=== PATIENT | female | born 1945 | race Asian ===

== ENCOUNTER 2018-02-26 13:08 | Inpatient (IN) | payer MEDICARE ==
[2018-02-26 14:23] LABS: Absolute Lymphocytes (CBC) 1.9 K/uL (0.7-4.9); Absolute Monocytes 0.6 K/uL (0.1-1.3); Absolute Neutrophil 7.7 K/uL (1.8-8.0); Basophils % 0.7 % (0-1.3); Eosinophils % 0.9 % (0-4.4); Hematocrit 37.3 % (36.0-45.0); Lymphocytes % 18.2 % (15.3-44.8); MCH 28.5 pg (27.0-35.0); MCV 84.4 fL (80-100); MPV 8.1 fL (7.6-11.3); Monocytes % 5.4 % (3.3-12.3); RBC Red Blood Cell Count 4.42 M/uL (3.86-4.86)
[2018-02-26 14:26] LABS: Protime INR 0.91
[2018-02-26 14:26] LABS: Urine Blood NEGATIVE (NEG); Urine Glucose NEGATIVE (NEG); Urine Protein NEGATIVE (NEG)
[2018-02-26 14:34] LABS: Potassium 3.7 mEq/L (3.6-5.0)
--- NOTE | 2018-02-26 14:40 | RAD REPORT ---
EXAM DESCRIPTION: RAD - Chest Single View - 02/26/2018 2:27 pm CLINICAL HISTORY: Diabetes, hypertension. COMPARISON: 09/23/2016 FINDINGS: Portable technique limits examination quality. The lungs are grossly clear. The heart is mildly enlarged in size. No displaced fractures. IMPRESSION: No acute intrathoracic process suspected.
[2018-02-26 14:41] LABS: Albumin 4.4 g/dL (3.2-5.5); Bilirubin Direct 0.1 mg/dL (0-0.2); Bilirubin Total 0.7 mg/dL (0.3-1.2); Magnesium 1.8 mg/dL (1.8-2.5); Protein, Total 7.7 g/dL (6.0-8.3)
[2018-02-26] MEDS ORDERED: NA CHLORIDE 0.9% 1,000 ML ONE (15:00)
--- NOTE | 2018-02-26 15:31 | ER ---
Nurse's Notes [facility] Name: Jesi Lee Age: 72 yrs Sex: Female : 1945 Arrival Date: 02/26/2018 Time: 13:10 Bed 23 Private MD: Fatou Adan Diagnosis: Hyponatremia;Dehydration Presentation: 02/26 13:27 Presenting complaint: Patient states: Vomiting x 2 episodes within the last week. aj Reports feeling lightheaded. Transition of care: patient was not received from another setting of care. Onset of symptoms was February 19, 2018. Initial Sepsis Screen: Does the patient meet any 2 criteria? No. Patient's initial sepsis screen is negative. Does the patient have a suspected source of infection? No. Patient's initial sepsis screen is negative. Care prior to arrival: None. 13:27 Method Of Arrival: Ambulatory 13:27 Acuity: RENETTA 3 aj Triage Assessment: 13:32 General: Appears in no apparent distress. comfortable, Behavior is calm, cooperative, aj appropriate for age. Pain: Denies pain. Neuro: Level of Consciousness is awake, alert, obeys commands, Oriented to person, place, time, situation, Appropriate for age. Respiratory: Reports shortness of breath Airway is patent Trachea midline Respiratory effort is even, unlabored, Respiratory pattern is regular, symmetrical. GI: Abdomen is flat, Reports vomiting. Derm: Skin is intact, is healthy with good turgor, Skin is pink, warm \T\ dry. normal. Historical: - Allergies: 13:32 NKA; aj - Home Meds: 13:32 amlodipine 10 mg tab [Active]; carvedilol 25 mg Oral tab 2 times per day [Active]; aj glipizide 5 mg Oral tr24 [Active]; hydrochlorothiazide 25 mg Oral tab 1 tab once daily [Active]; Iron CR Oral daily [Active]; losartan-hydrochlorothiazide 100-25 mg Oral tab [Active]; metformin 1,000 mg Oral tab 1 tab 2 times per day [Active]; METFORMIN HCL 1000mg [Active]; potassium chloride 10 mEq Oral cpER [Active]; telmisartan 80 mg Oral tab 1 tab once daily [Active]; - PMHx: 13:32 Diabetes; Hypertension; aj - PSHx: 13:32 Hysterectomy; Cholecystectomy; cataracts; aj - Immunization history:: Adult Immunizations up to date. - Social history:: Smoking status: Patient/guardian denies using tobacco. Screenin:43 Abuse screen: Denies threats or abuse. Nutritional screening: No deficits noted. tl3 Tuberculosis screening: No symptoms or risk factors identified. Fall Risk None identified. Assessment: 13:43 General: Appears in no apparent distress. comfortable, slender, well groomed, well tl3 developed, well nourished, Behavior is calm, cooperative, appropriate for age. Pain: Complains of pain in chest, feels short of breath sometimes. Neuro: Level of Consciousness is awake, alert, obeys commands, Oriented to person, place, time, situation, Appropriate for age. Cardiovascular: Reports chest pain, shortness of breath, Heart tones S1 S2 present Capillary refill < 3 seconds in bilateral fingers. Respiratory: Airway is patent Trachea midline Respiratory effort is even, unlabored, Respiratory pattern is regular, symmetrical, Breath sounds are clear bilaterally. GI: Abdomen is flat, Reports diarrhea, vomiting. : No signs and/or symptoms were reported regarding the genitourinary system. EENT: No signs and/or symptoms were reported regarding the EENT system. Derm: No signs and/or symptoms reported regarding the dermatologic system. Musculoskeletal: No signs and/or symptoms reported regarding the musculoskeletal system. 13:43 Reassessment: pt reports that her blood sugar has been as high as 140 and that her tl3 blood pressure has gotten as high asin the 170's. 14:57 Reassessment: Patient appears in no apparent distress at this time. No changes from tl3 previously documented assessment. Patient and/or family updated on plan of care and expected duration. Pain level reassessed. Patient is alert, oriented x 3, equal unlabored respirations, skin warm/dry/pink. pt resting in bed, at bedside. Vital Signs: 13:32 BP 159 / 75; Pulse 60; Resp 20; Temp 97.9; Pulse Ox 99% on R/A; Weight 62.6 kg; Height aj 5 ft. 1 in. (154.94 cm); Pain 0/10; 14:57 Pulse 66; Resp 16; Pulse Ox 99% ; tl3 15:57 BP 153 / 61; Pulse 66; Resp 16; Pulse Ox 100% on R/A; tl3 13:32 Body Mass Index 26.07 (62.60 kg, 154.94 cm) ED Course: 13:10 Patient arrived in ED. rg4 13:11 Fatou Adan MD is Private Physician. rg4 13:14 Adriana Bergman, RN is Primary Nurse. tl3 13:30 Triage completed. aj 13:33 Arm band placed on left wrist. Patient placed in an exam room. aj 13:37 Clark Villalobos PA is PHCP. jr8 13:37 Simeon Gavin MD is Attending Physician. jr8 13:43 No apparent distress. tl3 13:43 Patient has correct armband on for positive identification. Placed in gown. Bed in low tl3 position. Call light in reach. Side rails up X 1. Adult w/ patient. process environmental technician on. Pulse ox on. NIBP on. 13:43 No provider procedures requiring assistance completed. tl3 14:15 Initial lab(s) drawn, by me, sent to lab. tl3 14:22 Inserted saline lock: 20 gauge in left wrist, using aseptic technique. Blood collected. tl3 14:26 X-ray completed. Portable x-ray completed in exam room. Patient tolerated procedure mh1 well. 14:27 XRAY Chest (1 view) In Process Unspecified. EDMS 14:45 Warm blanket given. Pillow given. Head of bed lowered. tl3 14:59 EKG done, by polysomnography technologist. reviewed by Clark DARLING. at1 15:24 ED physician to see patient. Clark discussing POC and need to admit pt. tl3 15:30 Geno Krause MD is Hospitalizing Provider. jr8 16:34 Patient admitted, IV remains in place. tl3 Administered Medications: 15:03 Drug: NS 0.9% 1000 ml Route: IV; Rate: 1000 ml; Site: left wrist; Delivery: Primary tl3 tubing; 16:29 Follow up: IV Status: Completed infusion; IV Intake: 1000ml tl3 Intake: 16:29 IV: 1000ml; Total: 1000ml. tl3 Outcome: 15:30 Decision to Hospitalize by Provider. jr8 16:30 Admitted to Med/surg accompanied by tech, via wheelchair, with chart, Report called to tl3 Colton Sesay RN 16:34 Condition: good tl3 16:34 Instructed on the need for admit. 16:58 Patient left the ED. tl3 Signatures: Dispatcher [employer] EDAyla Rm, RAUL RN Tyesha Dumont 1 Clark Villalobos PA PA 8 Ayla chauhan, photonics engineering technologist EKG Tat1 Laly Singh rg4 Adriana Bergman RN RN tl3 Corrections: (The following items were deleted from the chart) 13:33 13:27 Acuity: RENETTA 4 zaynab worthy
--- NOTE | 2018-02-26 15:31 | EDPHYS ---
Physician Documentation [facility] Name: Jesi Lee Age: 72 yrs Sex: Female : 1945 Arrival Date: 02/26/2018 Time: 13:10 Bed 23 Private MD: Fatou Adan ED Physician Simeon Gavin HPI: 02/26 14:14 This 72 yrs old Female presents to ER via Ambulatory with complaints of High jr8 Blood Pressure, High Blood Sugar, Vomiting. 14:14 Modifying factors: The symptoms are aggravated by activity. Associated signs and jr8 symptoms: Pertinent positives: dyspnea. The patient has not experienced similar symptoms in the past. The patient has not recently seen a physician. Patient stated that for the past few days has had elevated blood sugar, blood pressure, along with n/v/d. Feels weak and fatigued now. Also having MRAK and chest tightness . Historical: - Allergies: 13:32 NKA; aj - Home Meds: 13:32 amlodipine 10 mg tab [Active]; carvedilol 25 mg Oral tab 2 times per day [Active]; aj glipizide 5 mg Oral tr24 [Active]; hydrochlorothiazide 25 mg Oral tab 1 tab once daily [Active]; Iron CR Oral daily [Active]; losartan-hydrochlorothiazide 100-25 mg Oral tab [Active]; metformin 1,000 mg Oral tab 1 tab 2 times per day [Active]; METFORMIN HCL 1000mg [Active]; potassium chloride 10 mEq Oral cpER [Active]; telmisartan 80 mg Oral tab 1 tab once daily [Active]; - PMHx: 13:32 Diabetes; Hypertension; aj - PSHx: 13:32 Hysterectomy; Cholecystectomy; cataracts; aj - Immunization history:: Adult Immunizations up to date. - Social history:: Smoking status: Patient/guardian denies using tobacco. ROS: 14:14 Eyes: Negative for injury, pain, redness, and discharge, ENT: Negative for injury, jr8 pain, and discharge, Neck: Negative for injury, pain, and swelling, Back: Negative for injury and pain, MS/Extremity: Negative for injury and deformity, Skin: Negative for injury, rash, and discoloration, Neuro: Negative for headache, weakness, numbness, tingling, and seizure. 14:14 Cardiovascular: Positive for chest pain, Negative for edema, orthopnea, palpitations, paroxysmal nocturnal dyspnea. 14:14 Respiratory: Positive for dyspnea on exertion, shortness of breath, Negative for sputum production, wheezing. 14:14 Abdomen/GI: Positive for nausea, vomiting, and diarrhea, Negative for abdominal pain, abdominal cramps, abdominal distension, anorexia, dysphagia, hematemesis, black/tarry stool, rectal pain, rectal bleeding, bowel incontinence, flatulence. Exam: 14:14 Eyes: Pupils equal round and reactive to light, extra-ocular motions intact. Lids and jr8 lashes normal. Conjunctiva and sclera are non-icteric and not injected. Cornea within normal limits. Periorbital areas with no swelling, redness, or edema. ENT: Nares patent. No nasal discharge, no septal abnormalities noted. Tympanic membranes are normal and external auditory canals are clear. Oropharynx with no redness, swelling, or masses, exudates, or evidence of obstruction, uvula midline. Mucous membranes moist. Neck: Trachea midline, no thyromegaly or masses palpated, and no cervical lymphadenopathy. Supple, full range of motion without nuchal rigidity, or vertebral point tenderness. No Meningismus. Cardiovascular: Regular rate and rhythm with a normal S1 and S2. No gallops, murmurs, or rubs. Normal PMI, no JVD. No pulse deficits. Respiratory: Lungs have equal breath sounds bilaterally, clear to auscultation and percussion. No rales, rhonchi or wheezes noted. No increased work of breathing, no retractions or nasal flaring. Abdomen/GI: Soft, non-tender, with normal bowel sounds. No distension or tympany. No guarding or rebound. No evidence of tenderness throughout. Back: No spinal tenderness. No costovertebral tenderness. Full range of motion. Skin: Warm, dry with normal turgor. Normal color with no rashes, no lesions, and no evidence of cellulitis. MS/ Extremity: Pulses equal, no cyanosis. Neurovascular intact. Full, normal range of motion. Neuro: Awake and alert, GCS 15, oriented to person, place, time, and situation. Cranial nerves II-XII grossly intact. Motor strength 5/5 in all extremities. Sensory grossly intact. Cerebellar exam normal. Normal gait. Vital Signs: 13:32 BP 159 / 75; Pulse 60; Resp 20; Temp 97.9; Pulse Ox 99% on R/A; Weight 62.6 kg; Height aj 5 ft. 1 in. (154.94 cm); Pain 0/10; 14:57 Pulse 66; Resp 16; Pulse Ox 99% ; tl3 15:57 BP 153 / 61; Pulse 66; Resp 16; Pulse Ox 100% on R/A; tl3 13:32 Body Mass Index 26.07 (62.60 kg, 154.94 cm) aj MDM: 13:37 Patient medically screened. 8 15:29 Data reviewed: vital signs, nurses notes, lab test result(s), EKG, radiologic studies, jr8 plain films. Data interpreted: Pulse oximetry: on room air is 99 %. Interpretation: normal. Counseling: I had a detailed discussion with the patient and/or guardian regarding: the historical points, exam findings, and any diagnostic results supporting the discharge/admit diagnosis, lab results, radiology results, the need for further work-up and treatment in the hospital. Physician consultation: Geno Krause MD was called at 15:29, was contacted at 15:29, regarding admission, to the telemetry unit. consult, patient's condition, and will see patient in ED. 02/26 13:52 Order name: Basic Metabolic Panel; Complete Time: 14:42 02/26 13:52 Order name: BNP; Complete Time: 14:55 02/26 13:52 Order name: CBC with Diff; Complete Time: 14:40 02/26 13:52 Order name: LFT's; Complete Time: 14:42 02/26 13:52 Order name: Magnesium; Complete Time: 14:42 02/26 13:52 Order name: PT-INR; Complete Time: 14:40 02/26 13:52 Order name: Troponin (emerg Dept Use Only); Complete Time: 14:42 02/26 13:52 Order name: XRAY Chest (1 view); Complete Time: 14:42 02/26 13:52 Order name: EKG; Complete Time: 13:53 02/26 13:52 Order name: Cardiac monitoring; Complete Time: 14:59 02/26 13:52 Order name: EKG - Nurse/Tech; Complete Time: 14:59 02/26 13:52 Order name: IV Saline Lock; Complete Time: 14:59 8 02/26 13:54 Order name: Urine Dipstick--Ancillary (enter results); Complete Time: 14:40 mw2 02/26 13:52 Order name: Labs collected and sent; Complete Time: 14:59 8 02/26 13:52 Order name: O2 Per Protocol; Complete Time: 14:59 8 02/26 13:52 Order name: O2 Sat Monitoring; Complete Time: 14:59 02/26 13:52 Order name: Urine Dipstick-Ancillary (obtain specimen); Complete Time: 14:59 Administered Medications: 15:03 Drug: NS 0.9% 1000 ml Route: IV; Rate: 1000 ml; Site: left wrist; Delivery: Primary tl3 tubing; 16:29 Follow up: IV Status: Completed infusion; IV Intake: 1000ml tl3 Disposition: 19:13 Co-signature as Attending Physician, Simeon Gavin MD I agree with the assessment and vicki plan of care. Disposition: 02/26/18 15:30 Hospitalization ordered by Geno Krause for Inpatient Admission. Preliminary diagnosis are Hyponatremia, Dehydration. - Bed requested for Telemetry/MedSurg (Inpatient). - Status is Inpatient Admission. tl3 - Condition is Stable. - Problem is new. - Symptoms have improved. UTI on Admission? No Signatures: Dispatcher [employer] Ayla Amor, Simeon Heller RN, MD MD cha Roszak, Josh, PA PA jr8 Adriana Bergman RN RN tl3 Mireille Edmonds mw2
[2018-02-26] MEDS ORDERED: ONDANSETRON 4 MG/2 ML VIAL IV PRN (15:47)
[2018-02-26] MEDS ORDERED: ACETAMINOPHEN 500 MG TAB PO PRN (15:47)
--- NOTE | 2018-02-26 17:00 | EKG ---
Test Date: 2018-02-26 Test Time: 14:50:16 Industrial Health Engineer: JARRELL MEASUREMENT RESULTS: Intervals: Rate: 61 MA: 226 QRSD: 94 QT: 430 QTc: 432 [place]: P: 53 MA: 226 QRS: 44 T: 62 INTERPRETIVE STATEMENTS: Sinus rhythm with 1st degree AV block Nonspecific T wave abnormality Abnormal ECG Compared to ECG 09/23/2016 16:30:17 First degree AV block now present T-wave abnormality now present ST (T wave) deviation no longer present Possible ischemia no longer present Electronically Signed On 02-26-18 16:59:39 CDT by Seamus Palomo
[2018-02-26 17:12] VITALS: O2SAT 100
[2018-02-26] MEDS ORDERED: D50W 25 GM/50 ML SYRINGE IV PRN (17:49)
[2018-02-26] MEDS ORDERED: GLUCAGON 1 MG/VIAL IM PRN (17:49)
--- NOTE | 2018-02-26 17:49 | P.HP ---
Certification for Inpatient Patient admitted to: Inpatient With expected LOS: >2 Midnights Patient will require the following post-hospital care: None Practitioner: I am a practitioner with admitting privileges, knowledge of patient current condition, hospital course, and medical plan of care. Services: Services provided to patient in accordance with Admission requirements found in Title 42 Section 412.3 of the Code of Federal Regulations Patient History Date of Service: 02/26/18 Primary Care Provider: None Reason for admission: Fatigue History of Present Illness: A 72-year-old female with significant past medical history of hypertension and diabetes who presented to the ED complaining of having some nausea vomiting and diarrhea for about 1-2 weeks. Patient stated that her symptoms got progressively worse and then she decided to come to the ER for further workup. Aside from having nausea vomiting patient also complained of having some weakness short of breath and fatigue missed that has gotten progressively worse as well. Patient denies having any fever chills or chest pain at this time. States that she has never had similar symptoms in the past and is very concerned about her acute state of health. Patient does follow up with her primary care provider and who recently has seen her primary care provider but did not have any other concerns at that time. In the ED lab work was done patient was found to have hyponatremia and thus was admitted for further admission. Allergies ciprofloxacin [From Cipro] Allergy (Verified 09/25/16 22:53) Itching/Hives/Rash No Known Allergies Allergy (Uncoded 11/14/17 10:55) Unknown Home Medications: Amlodipine Besylate [Norvasc] 10 mg PO DAILY WITH BREAKFAST 09/01/15 Glipizide [Glucotrol*] 5 mg PO BID 09/01/15 Losartan/Hydrochlorothiazide [Losartan-Hctz 100-25 mg Tab] 1 each PO DAILY WITH BREAKFAST 09/01/15 Metformin HCl [Glucophage] 1,000 mg PO BID 09/01/15 Potassium Chloride [Micro-K] 10 meq PO DAILY 09/01/15 Carvedilol [Coreg*] 12.5 mg PO BID #60 tab 05/04/16 Amoxicillin/Potassium Clav [Augmentin 875-125 Tablet] 1 each PO BID #14 tablet 09/26/16 Fluticasone [Flonase 50MCG Nasal [place]*] 1 sprays CANDY BID #1 btl 11/17/16 Hydralazine [Apresoline*] 25 mg PO BID #60 tab 09/26/16 Tramadol HCl [Ultram] 50 mg PO TID PRN #30 tablet 09/26/16 - Past Medical/Surgical History Diabetic: Yes -: HTN -: DM-NIDDM -: hysterectomy -: juan -: [place] cataract sx -: removal of basal cell carcinoma to Right side of forehead - Family History Mother -: Hypertension, Diabetes Sister -: Hypertension, Diabetes Dad & Mom -: Hypertension, Diabetes - Social History Alcohol use: No CD- Drugs: No Caffeine use: Yes Review of Systems General: As per HPI Physical Examination - Vital Signs Temperature: 97.9 F Blood Pressure: 153/61 Pulse: 66 Respirations: 16 - Physical Exam General: Alert, In no apparent distress HEENT: Atraumatic, PERRLA, Mucous membr. moist/pink, EOMI, Sclerae nonicteric Neck: Supple, 2+ carotid pulse no bruit, No LAD, Without JVD or thyroid abnormality Respiratory: Clear to auscultation bilaterally, Normal air movement Cardiovascular: Regular rate/rhythm, Normal S1 S2 Gastrointestinal: Normal bowel sounds, No tenderness Musculoskeletal: No tenderness Integumentary: No rashes Neurological: Normal speech, Normal strength at 5/5 x4 extr, Normal tone Lymphatics: No axilla or inguinal lymphadenopathy - Studies Laboratory Data (last 24 hrs) 02/26/18 14:10: PT 10.7, INR 0.91 02/26/18 14:10: WBC 10.2, Hgb 12.6, Hct 37.3, Plt Count 353 02/26/18 14:10: B-Natriuretic Peptide 72 02/26/18 14:10: Sodium 121 L, Potassium 3.7, BUN 12, Creatinine 0.73, Glucose 131 H, Magnesium 1.8, Total Bilirubin 0.7, AST 22, ALT 19, Alkaline Phosphatase 58 Assessment and Plan - Problems (Diagnosis) (1) Hyponatremia Current Visit: Yes Status: Acute Plan: Symptomatic Hyponatremia. Most likely dehydration. -NS bolus given in the ED -NS at 100 ml/hr -Will recheck NA level in 4 hours -Urine studies pending. (2) Diabetes Onset Date: 09/12/15 Current Visit: No Status: Chronic Plan: ISS Qualifiers: Diabetes mellitus type: type 2 Diabetes mellitus terminal make up operator insulin use: without terminal make up operator use Diabetes mellitus complication status: without complication Qualified Code(s): E11.9 - Type 2 diabetes mellitus without complications (3) Essential hypertension Current Visit: No Status: Chronic Plan: Restart Home medication. Discharge Plan: Home Plan to discharge in: 24 Hours - Advance Directives Does patient have a Living Will: No Does patient have a Durable POA for Healthcare: No - Code Status/Comfort Care Code Status Assessed: Yes Critical Care: No
[2018-02-26 18:14] VITALS: BMI 26.0
[2018-02-26] MEDS: NA CHLORIDE 0.9% 1,000 ML IV SCH (18:17)
[2018-02-26 20:17] LABS: UR CREAT 10.2 mg/dL; UR POTASSIUM 7.6 mEq/L (25-120)
[2018-02-26] MEDS: CARVEDILOL 25 MG TAB PO SCH (20:27)
[2018-02-26] MEDS: INSULIN -REGULAR HUMAN 50 UNIT/0.5 ML ML SQ SCH (21:00)
[2018-02-27] MEDS: NA CHLORIDE 0.9% 1,000 ML IV SCH ×3 (03:23→20:00)
[2018-02-27 04:48] LABS: Absolute Monocytes 0.7 K/uL (0.1-1.3); Absolute Neutrophil 3.7 K/uL (1.8-8.0); Hematocrit 34.2 % (36.0-45.0); Lymphocytes % 30.7 % (15.3-44.8); MCV 85.1 fL (80-100); MPV 8.3 fL (7.6-11.3); Monocytes % 9.9 % (3.3-12.3); RBC Red Blood Cell Count 4.02 M/uL (3.86-4.86)
[2018-02-27 05:13] LABS: Albumin 3.6 g/dL (3.2-5.5); Bilirubin Total 0.6 mg/dL (0.3-1.2); Potassium 3.6 mEq/L (3.6-5.0); Protein, Total 6.1 g/dL (6.0-8.3)
[2018-02-27] MEDS: INSULIN -REGULAR HUMAN 50 UNIT/0.5 ML ML SQ SCH ×4 (07:30→20:26)
[2018-02-27] MEDS: AMLODIPINE 10 MG TAB PO SCH (08:55)
[2018-02-27] MEDS: CARVEDILOL 25 MG TAB PO SCH ×2 (08:55→20:23)
[2018-02-27] MEDS: POTASSIUM CL SA 10 MEQ TAB PO SCH (08:56)
[2018-02-27] MEDS ORDERED: POTASSIUM 25 MEQ EFFERV TAB PO ONE (09:00)
[2018-02-27] MEDS ORDERED: HOME MED 1 EA UNK (Potassium Chloride [Micro-K] 10 MEQ) PO SCH (09:00)
[2018-02-27 14:18] LABS: Potassium 3.8 mEq/L (3.6-5.0)
--- NOTE | 2018-02-27 17:02 | P.PN ---
Subjective Date of Service: 02/27/18 Primary Care Provider: None Chief Complaint: Fatigue Subjective: No C/O voiced, Tolerating diet, Ambulating, Improving, Doing well Review of Systems 10-point ROS is otherwise unremarkable Physical Examination - Vital Signs Temperature: 97.7 F Blood Pressure: 157/68 Pulse: 56 Respirations: 16 Pulse Ox (%): 99 - Physical Exam General: Alert, In no apparent distress, Oriented x3 HEENT: Atraumatic, PERRLA, EOMI Neck: Supple, JVD not distended Respiratory: Clear to auscultation bilaterally, Normal air movement Cardiovascular: Regular rate/rhythm, Normal S1 S2 Gastrointestinal: Normal bowel sounds, No tenderness Musculoskeletal: No tenderness Integumentary: No rashes Neurological: Normal speech, Normal tone, Normal affect Lymphatics: No axilla or inguinal lymphadenopathy - Studies Medications List Reviewed: Yes Assessment & Plan - Problems (Diagnosis) (1) Hyponatremia Onset Date: 02/27/18 Current Visit: Yes Status: Acute Plan: Symptomatic Hyponatremia. Most likely related to her HCTZ use. Hypovolumic hyponatremia -NS bolus given in the ED -NS at 100 ml/hr -NA upto 128. Will recheck -Urine studies done. (2) Diabetes Onset Date: 09/12/15 Current Visit: No Status: Chronic Plan: ISS Qualifiers: Diabetes mellitus type: type 2 Diabetes mellitus manager intermediate insulin use: without manager intermediate use Diabetes mellitus complication status: without complication Qualified Code(s): E11.9 - Type 2 diabetes mellitus without complications (3) Essential hypertension Onset Date: 02/27/18 Current Visit: Yes Status: Chronic Plan: Restart Home medication. HOLD HCTZ
[2018-02-28] MEDS: NA CHLORIDE 0.9% 1,000 ML IV SCH ×2 (01:00→08:56)
[2018-02-28] MEDS ORDERED: HYDRALAZINE HCL 20 MG/ML VIAL IV PRN (04:47)
[2018-02-28 05:28] LABS: Absolute Lymphocytes (CBC) 1.7 K/uL (0.7-4.9); Absolute Monocytes 0.6 K/uL (0.1-1.3); Absolute Neutrophil 4.1 K/uL (1.8-8.0); Basophils % 0.9 % (0-1.3); Hematocrit 35.3 % (36.0-45.0); Lymphocytes % 25.8 % (15.3-44.8); MCH 28.9 pg (27.0-35.0); MCV 85.7 fL (80-100); Monocytes % 9.2 % (3.3-12.3); RBC Red Blood Cell Count 4.12 M/uL (3.86-4.86)
[2018-02-28 05:56] LABS: Albumin 3.9 g/dL (3.2-5.5); Bilirubin Total 0.4 mg/dL (0.3-1.2); Magnesium 1.7 mg/dL (1.8-2.5); Phosphorus 3.8 mg/dL (2.5-4.3); Potassium 3.8 mEq/L (3.6-5.0); Protein, Total 6.6 g/dL (6.0-8.3)
[2018-02-28] MEDS: INSULIN -REGULAR HUMAN 50 UNIT/0.5 ML ML SQ SCH (07:30)
[2018-02-28] MEDS ORDERED: POTASSIUM 25 MEQ EFFERV TAB PO ONE (08:00)
[2018-02-28] MEDS: POTASSIUM CL SA 10 MEQ TAB PO SCH (08:40)
[2018-02-28] MEDS: CARVEDILOL 25 MG TAB PO SCH (08:49)
[2018-02-28] MEDS: AMLODIPINE 10 MG TAB PO SCH (08:50)
[2018-02-28 08:59] VITALS: TEMP 97.4
[2018-02-28] MEDS ORDERED: MAGNESIUM SULFATE 1 gm IVPB 1 GM/100 ML BAG IV ONE (09:00)
[2018-02-28 11:47] VITALS: BP 148/71
--- NOTE | 2018-03-01 02:53 | DS ---
Date of Discharge: 02/28/2018 Discharge Diagnoses: 1.Hyponatremia. 2.Hypertension. 3.Diabetes mellitus. 4.Hyperlipidemia. 5.Fatigue. Consult: None. Procedure: Chest x-ray. History Of Present Illness: Please refer to Dr. Krause's history and physical exam note. Hospital Course: Initially, the patient presented with progressive fatigue, diarrhea, and nausea. S he found to have severe hyponatremia with sodium of 121 secondary to dehydration. The patient was gi randall normal saline bolus, and she was placed on IV fluids, and her sodium improved up to normal at 136 today. Her hydrochlorothiazide was on hold. We will continue her home medicine for high blood pres sure and diabetes. She will be discharged today in stable condition. We advised that she discuss wi th her primary care physician as soon as possible on Friday hydrochlorothiazide, an alternative to se e if there is any alternative because that may be a reason for her hyponatremia. I will resume that now because blood pressure has not been well controlled. So, primary care physician on Friday to see alternative medicine. Discharge Condition: Stable. Discharged Diet: Diabetic 1800 ADA. Discharge Activity: As tolerated. Discharge Followup: With primary care physician on Friday. The patient to call on Friday morning an d schedule an appointment, I advised strongly that. Discharge Medications: Norvasc 10 mg orally once a day, Coreg 25 mg orally twice a day, glipizide 5 mg orally twice a day, hydrochlorothiazide 25 mg once a day, metformin 1000 mg twice a day, telmisart an 80 mg daily. Discharge Physical Examination: Vital Signs: Today, blood pressure is 175/78, respiratory rate 18, pulse 71, temperature 97.4. General: She is alert and oriented x3. Does not look in any distress. HEENT: Atraumatic, normocephalic. PERRLA. Oral mucosa is moist. Neck: Supple. No JVD. No carotid bruits. Chest: Clear to auscultation. Good air entry. Heart: Regular rate and rhythm. S1, S2 normal. No gallop or murmur. Abdomen: Soft, nontender. No masses. No hepatosplenomegaly. Positive bowel sounds. Extremities: No clubbing, cyanosis, or edema. No calf tenderness. Neurologic: Grossly intact. MATTHEW/FAUSTO Voice ID: [id number] Report ID: [id number]
== END 2018-02-28 11:22 | disposition home or self-care (01) | DRG 641 ==
LOC: ER 13:08 → ERHOLD 15:31 → 2ND 16:34
PROVIDERS: ADMIT Family Medicine; ATTEND Family Medicine
DX: E87.1 Hypo-osmolality and hyponatremia (principal); E86.0 Dehydration; I10 Essential (primary) hypertension; E11.9 Type 2 diabetes mellitus without complications; E78.5 Hyperlipidemia, unspecified; R53.83 Other fatigue
CPT/HCPCS: 36415; 71045; 80048; 80053; 80076; 81003; 82435; 82570; 82962; 83735; 83880; 83930; 83935; 84100; 84132; 84300; 84484; 85025; 85610; 93005; 96360; 99285; J0360; J3475; J7030

== ENCOUNTER 2018-05-24 03:42 | Inpatient (IN) | payer MEDICARE ==
--- OUTSIDE RECORDS SUMMARY | 2018-05-24 03:45 | XMS REPORT ---
:1945 Author Organization [employer] Care Team Providers Name Role Phone Fatou Adan Provider Role Unavailable Allergies, Adverse Reactions, Alerts Substance Reaction Event Type N.K.D.A. Info Not Available Non Drug Allergy Problems Problem Type Condition Code Onset Dates Condition Status Assessment Hypertension, unspecified type I10 Active Assessment Postnasal drip R09.82 Active Problem Diabetes E11.9 Active Problem Hypertension, unspecified type I10 Active Problem Hypertension I10 Active Assessment Hyponatremia E87.1 Active Assessment Follow-up exam Z09 Active Assessment Diarrhea, unspecified type R19.7 Active Assessment Dehydration E86.0 Active Medications Medication Code Code Instructions Start End Status Dosage System Date Date Hydrochlorothiazide [facility] 55883706822 25 MG Orally Active 1 tablet Once a day in the morning Vitamin D-3 [facility] [address]76-[address] 1000 UNIT Active 2 capsules Orally Once a day Klor-Con 10 [facility] 11442219932 10 MEQ Orally Active 1 tablet Twice a day with food Iron [facility] 49951023883 325 (65 Fe) MG Active 1 tablet Orally Once a day Telmisartan [facility] 40894917106 80 MG Orally Active 1 tablet Once a day Coreg [facility] 72026433379 25 mg Orally Active 1 tablet Twice daily GlipiZIDE [facility] 33461707106 5 MG Orally Active 1 tablet Once a day Metformin HCl [facility] 14115119474 1000 MG Orally Active 1 tablet Twice daily with a meal Doxazosin Mesylate [facility] 18838499551 1 MG Orally [place] Active 1 tablet Once a day , in evening 2018 for high blood pressure Amlodipine Besylate [facility] 59679428034 10 MG Orally Active 1 tablet Once a day Results No Known Results Summary Purpose eClinicalWorks Submission
--- OUTSIDE RECORDS SUMMARY | 2018-05-24 03:45 | XMS REPORT ---
:1945 Author Organization [employer] Care Team Providers Name Role Phone Fatou Adan Provider Role Unavailable Allergies No Known Allergies Problems Problem Type Condition Code Onset Dates Condition Status Problem Diabetes E11.9 Active Problem Hypertension, unspecified type I10 Active Problem Hypertension I10 Active Medications No Known Medications Results No Known Results Summary Purpose [employer]ClinicalWorks Submission
[2018-05-24 04:47] LABS: Absolute Monocytes 0.7 K/uL (0.1-1.3); Absolute Neutrophil 13.1 K/uL (1.8-8.0); Basophils % 0.6 % (0-1.3); Eosinophils % 0.9 % (0-4.4); Hematocrit 36.8 % (36.0-45.0); Lymphocytes % 6.7 % (15.3-44.8); MCV 85.5 fL (80-100); MPV 8.5 fL (7.6-11.3); Monocytes % 4.8 % (3.3-12.3)
[2018-05-24 05:00] LABS: Urine Appearance CLOUDY; Urine Bilirubin NEGATIVE (NEG); Urine Blood 3+ (NEG); Urine Color RED; Urine Glucose NEGATIVE (NEG); Urine Protein 2+ (NEG); Urine Specific Gravity <=1.005 (1.005-1.030); Urine Urobilinogen 0.2 mg/dL (0.2-1.0); Urine pH 5.5 (5.0-7.0)
[2018-05-24] MEDS ORDERED: NACL 0.9% IRR SOLN 2,000 ML IRR ONE (05:01)
[2018-05-24 05:07] LABS: Potassium 3.5 mmol/L (3.5-5.1)
[2018-05-24 05:09] LABS: Blood Morphology Comment NOT SEEN (NOT SEEN); Platelet Estimate ADEQ; Urine White Blood Cell Casts OK
[2018-05-24 05:11] LABS: Urine Bacteria 20-50 /HPF (<20); Urine RBC TNTC /HPF (NONE SEEN)
[2018-05-24 05:12] LABS: Urine Culture Reflex Order NOT NEEDED
[2018-05-24] MEDS ORDERED: CEFTRIAXONE/SWI 1gm 1 GM/10 ML SYR ONE (05:50)
[2018-05-24] MEDS ORDERED: METRONIDAZOLE 500mg IVPB 500 MG/100 ML BAG IV ONE (06:25)
--- NOTE | 2018-05-24 06:31 | EDPHYS ---
Physician Documentation [facility] Name: Jesi Lee Age: 72 yrs Sex: Female : 1945 Arrival Date: 05/24/2018 Time: 03:43 Bed 6 Private MD: Fatou Adan ED Physician Rishi Patino HPI: 05/24 04:05 This 72 yrs old Female presents to ER via Ambulatory with complaints of Urinary rn Problem. 04:05 The patient presents with urinary symptoms, hematuria. Onset: The symptoms/episode rn began/occurred this morning. Modifying factors: The symptoms are alleviated by nothing, the symptoms are aggravated by urinating. Associated signs and symptoms: Pertinent positives: cramping, dysuria. Severity of symptoms: At their worst the symptoms were moderate, in the emergency department the symptoms are unchanged. The patient has not experienced similar symptoms in the past. The patient has not recently seen a physician. 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 - Social history:: Smoking status: Patient/guardian denies using tobacco, Patient/guardian denies using alcohol, street drugs. - Family history:: not pertinent. - Ebola Screening: : No symptoms or risks identified at this time. - Hospitalizations: : No recent hospitalization is reported. ROS: 04:05 Positive for hematuria, burning with urination. rn 04:05 Constitutional: Negative for fever, chills, and weight loss, Eyes: Negative for injury, pain, redness, and discharge, Neck: Negative for injury, pain, and swelling, Cardiovascular: Negative for chest pain, palpitations, and edema, Respiratory: Negative for shortness of breath, cough, wheezing, and pleuritic chest pain, Abdomen/GI: + suprapubic abd pain MS/Extremity: Negative for injury and deformity, Neuro: Negative for headache, weakness, numbness, tingling, and seizure. Exam: 04:05 Constitutional: This is a well developed, well nourished patient who is awake, alert, rn and in no acute distress. Head/Face: Normocephalic, atraumatic. Eyes: Pupils equal round and reactive to light, extra-ocular motions intact. Lids and lashes normal. Conjunctiva and sclera are non-icteric and not injected. Cornea within normal limits. Periorbital areas with no swelling, redness, or edema. Cardiovascular: Regular rate and rhythm with a normal S1 and S2. No gallops, murmurs, or rubs. Normal PMI, no JVD. No pulse deficits. Respiratory: Lungs have equal breath sounds bilaterally, clear to auscultation and percussion. No rales, rhonchi or wheezes noted. No increased work of breathing, no retractions or nasal flaring. Abdomen/GI: soft, mild suprapubic tenderness, no rebound, no CVAT MS/ Extremity: Pulses equal, no cyanosis. Neurovascular intact. Full, normal range of motion. Equal circumference. Neuro: Awake and alert, GCS 15, oriented to person, place, time, and situation. Cranial nerves II-XII grossly intact. Motor strength 5/5 in all extremities. Sensory grossly intact. Cerebellar exam normal. Normal gait. Vital Signs: 04:05 BP 196 / 80; Pulse 93; Resp 18 S; Temp 99.4(A); Pulse Ox 96% on R/A; Weight 60.33 kg bb (R); Height 5 ft. 1 in. (154.94 cm) (R); Pain 5/10; 05:30 BP 186 / 77; Pulse 74; Resp 18; Pulse Ox 98% on R/A; lp1 06:32 BP 183 / 63; Pulse 64; Resp 16; Pulse Ox 98% on R/A; lp1 07:16 BP 166 / 58; Pulse 68; Resp 18; Pulse Ox 99% ; sv 07:59 BP 178 / 68; Pulse 73; Resp 16; Pulse Ox 97% ; sv 04:05 Body Mass Index 25.13 (60.33 kg, 154.94 cm) bb MDM: 03:52 Patient medically screened. rn 06:28 Differential diagnosis: kidney stone, urinary tract infection, diverticulitis. Data rn reviewed: vital signs, nurses notes, lab test result(s), radiologic studies, CT scan, and as a result, I will admit patient. Counseling: I had a detailed discussion with the patient and/or guardian regarding: the historical points, exam findings, and any diagnostic results supporting the discharge/admit diagnosis, lab results, radiology results, the need for further work-up and treatment in the hospital. Response to treatment: the patient's symptoms have mildly improved after treatment, and as a result, I will admit patient. Admission orders: after a detailed discussion of the patient's condition and case, the admit orders are written by me. ED course: Pt cleared after bladder irrigation, but now darkening again, + UTI, + diverticulitis, will admit given 2 processes and hematuria returning. Will admit with abx and urology consult. . 05/24 04:05 Order name: Basic Metabolic Panel; Complete Time: 05:13 rn 05/24 04:05 Order name: CBC with Diff; Complete Time: 05:13 rn 05/24 04:05 Order name: Creatinine for Radiology; Complete Time: 05:13 rn 05/24 04:05 Order name: Urine Culture rn 05/24 04:05 Order name: IV Saline Lock; Complete Time: 04:41 rn 05/24 04:05 Order name: Labs collected and sent; Complete Time: 04:41 rn 05/24 04:05 Order name: Urine Dipstick-Ancillary (obtain specimen); Complete Time: 04:41 rn 05/24 04:05 Order name: CT Stone Protocol rn 05/24 04:56 Order name: Urinalysis W/Microscopic; Complete Time: 05:13 EDMS 05/24 05:09 Order name: CBC Smear Scan; Complete Time: 05:13 EDMS Administered Medications: 05:56 Drug: Rocephin - (cefTRIAXone) 1 grams Route: IVPB; Infused Over: 30 mins; Site: left lp1 antecubital; 06:33 Follow up: Response: No adverse reaction; IV Status: Completed infusion lp1 06:31 Drug: Flagyl 500 mg Volume: 100 ml; Route: IVPB; Rate: 200 ml/hr; Infused Over: 30 lp1 mins; Site: left antecubital; 07:28 Follow up: Response: No adverse reaction; IV Status: Completed infusion; IV Intake: sv 100ml Point of Care Testing: Blood Glucose: 08:46 Blood Glucose: 158 mg/dL; sv Ranges: Critical Glucose Levels:Adult <50 mg/dl or >400 mg/dl <40 mg/dl or >180 mg/dl Disposition: 05/24/18 06:31 Hospitalization ordered by Harry Guillen for Inpatient Admission. Preliminary diagnosis are Hematuria, unspecified, Diverticulitis of large intestine without perforation or abscess without bleeding, Urinary tract infection, site not specified. - Bed requested for Telemetry/MedSurg (Inpatient). - Status is Inpatient Admission. sv - Condition is Stable. - Problem is new. - Symptoms have improved. UTI on Admission? Yes Signatures: Dispatcher [employer] EDMS Jonna York RN RN sv Ballard, Brenda, RN RN bb Nieto, Roman, MD MD rn Pena, Laura, RN RN lp1 Mara Melton Corrections: (The following items were deleted from the chart) 04:56 04:05 UA MICROSCOPIC+U.LAB.BRZ ordered. [facility] EDMS 04:56 04:16 URINALYSIS+U.LAB.BRZ ordered. [facility] EDMS 06:33 06:31 Hospitalization Ordered by Geno Krause MD for Inpatient Admission. Preliminary rn diagnosis is Hematuria, unspecified; Diverticulitis of large intestine without perforation or abscess without bleeding; Urinary tract infection, site not specified. Bed requested for Telemetry/MedSurg (Inpatient). Status is Inpatient Admission. Condition is Stable. Problem is new. Symptoms have improved. UTI on Admission? Yes. rn 06:42 06:33 05/24/2018 06:31 Hospitalization Ordered by Harry Guillen MD for Inpatient eb Admission. Preliminary diagnosis is Hematuria, unspecified; Diverticulitis of large intestine without perforation or abscess without bleeding; Urinary tract infection, site not specified. Bed requested for Telemetry/MedSurg (Inpatient). Status is Inpatient Admission. Condition is Stable. Problem is new. Symptoms have improved. UTI on Admission? Yes. rn 08:41 06:42 05/24/2018 06:31 Hospitalization Ordered by Harry Guillen MD for Inpatient eb Admission. Preliminary diagnosis is Hematuria, unspecified; Diverticulitis of large intestine without perforation or abscess without bleeding; Urinary tract infection, site not specified. Bed requested for Telemetry/MedSurg (Inpatient). Status is Inpatient Admission. Condition is Stable. Problem is new. Symptoms have improved. UTI on Admission? Yes. eb 09:16 08:41 05/24/2018 06:31 Hospitalization Ordered by Harry Guillen MD for Inpatient sv Admission. Preliminary diagnosis is Hematuria, unspecified; Diverticulitis of large intestine without perforation or abscess without bleeding; Urinary tract infection, site not specified. Bed requested for Telemetry/MedSurg (Inpatient). Status is Inpatient Admission. Condition is Stable. Problem is new. Symptoms have improved. UTI on Admission? Yes. eb
--- NOTE | 2018-05-24 06:31 | ER ---
Nurse's Notes [facility] Name: Jesi Lee Age: 72 yrs Sex: Female : 1945 Arrival Date: 05/24/2018 Time: 03:43 Bed 6 Private MD: Fatou Adan Diagnosis: Hematuria, unspecified;Diverticulitis of large intestine without perforation or abscess without bleeding;Urinary tract infection, site not specified Presentation: 05/24 04:02 Presenting complaint: Patient states: she has blood in her urine and lower abdominal bb pain since last night. Transition of care: patient was not received from another setting of care. Onset of symptoms was May 24, 2018. Risk Assessment: Do you want to hurt yourself or someone else? Patient reports no desire to harm self or others. Initial Sepsis Screen: Does the patient meet any 2 criteria? No. Patient's initial sepsis screen is negative. Does the patient have a suspected source of infection? No. Patient's initial sepsis screen is negative. Care prior to arrival: None. 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 - Social history:: Smoking status: Patient/guardian denies using tobacco, Patient/guardian denies using alcohol, street drugs. - Family history:: not pertinent. - Ebola Screening: : No symptoms or risks identified at this time. - Hospitalizations: : No recent hospitalization is reported. Screenin:40 Abuse screen: Denies threats or abuse. Denies injuries from another. Nutritional lp1 screening: No deficits noted. Tuberculosis screening: No symptoms or risk factors identified. Fall Risk None identified. Assessment: 04:36 General: Appears in no apparent distress. Behavior is appropriate for age. Pain: lp1 Complains of pain in left arm. Pain: Complains of pain in suprapubic area Pain currently is 6 out of 10 on a pain scale. Quality of pain is described as crampy. Neuro: Level of Consciousness is awake, alert, obeys commands, Oriented to person, place, time, situation. Cardiovascular: Patient's skin is warm and dry. Respiratory: Respiratory effort is even, unlabored. GI: Abdomen is non-distended, Bowel sounds present X 4 quads. Reports lower abdominal pain, Patient currently denies nausea, vomiting. : Reports burning with urination, urinary frequency. EENT: No signs and/or symptoms were reported regarding the EENT system. Derm: Skin is pink, warm \T\ dry. Musculoskeletal: Circulation, motion, and sensation intact. 05:38 Reassessment: Patient appears in no apparent distress at this time. Patient is alert, lp1 oriented x 3, equal unlabored respirations, skin warm/dry/pink. States cramp-like pain to pelvis. 05:57 Reassessment: Patient's urine light pink in color after irrigation of 2L NC through lp1 3-way jose; Provider aware. 06:32 Reassessment: Patient is alert, oriented x 3, equal unlabored respirations, skin lp1 warm/dry/pink. Provider notified or urine more red in color at this time; Patient aware of pending admission. 07:12 General: Appears in no apparent distress. comfortable, Behavior is calm, cooperative, sv appropriate for age. Pain: Denies pain. Neuro: Level of Consciousness is awake, alert, obeys commands, Oriented to person, place, time, situation. Respiratory: Respiratory effort is even, unlabored, Respiratory pattern is regular, symmetrical. : 3-way catheter in place to gravity drainage dark tovar color. Derm: Skin is. 07:30 Reassessment: Called Dr Krause to get admission orders for pt to go upstairs. sv 08:20 Reassessment: Called Dr Krause for admission orders, orders put into [facility]. sv 08:44 Reassessment: Patient appears in no apparent distress at this time. Patient and/or sv family updated on plan of care and expected duration. Pain level reassessed. Patient is alert, oriented x 3, equal unlabored respirations, skin warm/dry/pink. 08:44 Reassessment: Nurse to call back for report. sv Vital Signs: 04:05 BP 196 / 80; Pulse 93; Resp 18 S; Temp 99.4(A); Pulse Ox 96% on R/A; Weight 60.33 kg bb (R); Height 5 ft. 1 in. (154.94 cm) (R); Pain 5/10; 05:30 BP 186 / 77; Pulse 74; Resp 18; Pulse Ox 98% on R/A; lp1 06:32 BP 183 / 63; Pulse 64; Resp 16; Pulse Ox 98% on R/A; lp1 07:16 BP 166 / 58; Pulse 68; Resp 18; Pulse Ox 99% ; sv 07:59 BP 178 / 68; Pulse 73; Resp 16; Pulse Ox 97% ; sv 04:05 Body Mass Index 25.13 (60.33 kg, 154.94 cm) bb ED Course: 03:43 Patient arrived in ED. es 03:44 Inderjit Campos MD is Private Physician. es 03:44 Fatou Adan MD is Private Physician. es 03:52 Rishi Patino MD is Attending Physician. rn 04:02 Triage completed. bb 04:05 Arm band placed on Patient placed in an exam room, on a stretcher, on pulse oximetry. bb Family accompanied patient. 04:24 Radiology exam delayed due to IV being started at this time. kw1 04:30 Inserted saline lock: 20 gauge in left antecubital area, using aseptic technique. Blood lp1 collected. By Anabelle Vela RN. 04:35 Yumiko Hernández RN is Primary Nurse. lp1 04:[address] via wheelchair. lp1 04:40 Patient has correct armband on for positive identification. Placed in gown. Bed in low lp1 position. Call light in reach. Pulse ox on. NIBP on. 04:42 CT completed. Patient tolerated procedure well. Patient moved back from CT. kw1 04:47 CT Stone Protocol In Process Unspecified. EDMS 05:15 3-way catheter inserted, using sterile technique, 20 Fr. By RAUL Jones; Per provider, lp1 perform irrigation with NS until urine is clear. 06:30 Geno Krause MD is Hospitalizing Provider. rn 06:32 No provider procedures requiring assistance completed. Patient admitted, IV remains in lp1 place. 06:33 Harry Guillen MD is Hospitalizing Provider. rn 07:11 Primary Nurse role handed off by Yumiko Hernández RN 07:11 Jonna York, RAUL is Primary Nurse. sv 07:15 Awaiting bed assignment. sv Administered Medications: 05:56 Drug: Rocephin - (cefTRIAXone) 1 grams Route: IVPB; Infused Over: 30 mins; Site: left lp1 antecubital; 06:33 Follow up: Response: No adverse reaction; IV Status: Completed infusion lp1 06:31 Drug: Flagyl 500 mg Volume: 100 ml; Route: IVPB; Rate: 200 ml/hr; Infused Over: 30 lp1 mins; Site: left antecubital; 07:28 Follow up: Response: No adverse reaction; IV Status: Completed infusion; IV Intake: sv 100ml Point of Care Testing: Blood Glucose: 08:46 Blood Glucose: 158 mg/dL; sv Ranges: Intake: 07:28 IV: 100ml; Total: 100ml. sv Outcome: 06:31 Decision to Hospitalize by Provider. rn 08:58 Admitted to Med/surg accompanied by tech, family with patient, via wheelchair, room sv 431, with chart, Report called to Kobi CARTER 08:58 Condition: stable 08:58 Instructed on the need for admit. 09:16 Patient left the ED. sv Signatures: Dispatcher [employer] EDJonna Ybarra RN RN sv Salyer, Edna es Ballard, Brenda, RN RN bb Nieto, Roman, MD MD rn Pena, Laura, RN RN lp1 Anay Johnson kw1 Corrections: (The following items were deleted from the chart) 04:25 04:18 Patient moved to [place] via stretcher. kw1 kw1
[2018-05-24] MEDS ORDERED: GLUCAGON 1 MG/VIAL IM PRN (08:22)
[2018-05-24] MEDS ORDERED: D50W 25 GM/50 ML SYRINGE IV PRN (08:22)
[2018-05-24] MEDS ORDERED: CEFTRIAXONE/SWI 1gm 1 GM/10 ML SYR IVP SCH (09:00)
[2018-05-24] MEDS: NA CHLORIDE 0.9% 1,000 ML IV SCH ×2 (09:22→17:31)
[2018-05-24 09:59] VITALS: BMI 25.1
[2018-05-24] MEDS ORDERED: ONDANSETRON 4 MG/2 ML VIAL IV PRN (10:12)
[2018-05-24] MEDS ORDERED: ACETAMINOPHEN 500 MG TAB PO PRN (10:12)
[2018-05-24] MEDS ORDERED: HYDRALAZINE HCL 20 MG/ML VIAL IV PRN (10:15)
[2018-05-24] MEDS: AMLODIPINE 10 MG TAB PO SCH (11:07)
[2018-05-24] MEDS: CARVEDILOL 12.5 MG TAB PO SCH ×2 (11:08→20:34)
[2018-05-24] MEDS: INSULIN -REGULAR HUMAN 50 UNIT/0.5 ML ML SQ SCH ×3 (11:30→21:00)
--- NOTE | 2018-05-24 12:50 | RAD REPORT ---
EXAM DESCRIPTION: CT - Stone Protocol - 05/24/2018 6:40 am CLINICAL HISTORY: Abdominal pain. Hematuria COMPARISON: 2016 TECHNIQUE: Computed axial tomography of the abdomen pelvis was obtained without oral or IV contrast. Lack of IV and oral contrast limits evaluation of solid organs, bowel, and vessels. Coronal reformat celina images were obtained and reviewed. A preliminary report was generated by [employer] and reviewed prior to this dictation All CT scans are performed using dose optimization technique as appropriate and may include automated exposure control or mA/KV adjustment according to patient size. FINDINGS: A renal calculus is not seen. An ureteral calculus is not noted. A bladder calculus is not present. The liver has a mildly nodular contour Spleen, pancreas and adrenals appear grossly normal Diverticula stem from the colon. Mild stranding present adjacent to the proximal sigmoid. The wall of the sigmoid is mildly thickened. Several small lymph nodes are present adjusted the sigmoid. Spondylosis involves lumbar spine resulting in spinal stenosis Several ventral hernias contain fat. The neck vary in size from 10-25 millimeters IMPRESSION: Mild sigmoid diverticulitis with mild wall thickening and mild lymphadenopathy. Direct visualization is recommended to exclude underlying mass
--- NOTE | 2018-05-24 13:10 | P.HP ---
Certification for Inpatient Patient admitted to: Inpatient With expected LOS: >2 Midnights Patient will require the following post-hospital care: None Practitioner: I am a practitioner with admitting privileges, knowledge of patient current condition, hospital course, and medical plan of care. Services: Services provided to patient in accordance with Admission requirements found in Title 42 Section 412.3 of the Code of Federal Regulations Patient History Date of Service: 05/24/18 Primary Care Provider: Dr Adan Reason for admission: Hematuria History of Present Illness: This is a 72-year-old female with significant past medical history of hypertension, diabetes, who presented to the ED complaining of having some lower abdominal pain this morning that started around 2:00 a.m. Patient stated that she was in her regular state of health till this morning around 2:00 a.m. where she noticed that she started having some excruciating pain in the left lower quadrant and mid lower quadrant of the abdominal area and went to the restroom. Patient noticed that she was having bloody urine at that time. Patient stated that she has never had anything like this before but she does have history of diverticulosis. Patient however stated that her stool was not bloody at all. Patient stated that she currently has not been on any blood thinners. She also complains of having some burning urination and painful urination. No other complaints to offer at this time. Denies having any fever chills nausea vomiting chest pain or shortness of breath at this time. In the ER patient was found to have hematuria along with urinary tract infection and mild diverticulitis of the sigmoid colon and thus was referred over for admission for further care. Allergies ciprofloxacin [From Cipro] Allergy (Verified 05/24/18 09:18) Itching/Hives/Rash No Known Allergies Allergy (Uncoded 05/24/18 09:20) Unknown Home Medications: Amlodipine Besylate [Norvasc] 10 mg PO DAILY WITH BREAKFAST 09/01/15 Metformin HCl [Glucophage] 1,000 mg PO BID 09/01/15 glipiZIDE [Glucotrol*] 5 mg PO DAILY 09/01/15 Carvedilol [Coreg*] 25 mg PO BID 02/26/18 Telmisartan 80 mg PO DAILY 02/26/18 Doxazosin Mesylate 1 tab PO BEDTIME 05/24/18 - Past Medical/Surgical History Has patient received pneumonia vaccine in the past: Yes Diabetic: Yes -: HTN -: DM-NIDDM -: hysterectomy -: juan -: remington cataract sx -: removal of basal cell carcinoma to Right side of forehead - Family History Mother -: Hypertension, Diabetes Sister -: Hypertension, Diabetes Dad & Mom -: Hypertension, Diabetes - Social History Smoking Status: Never smoker Alcohol use: No CD- Drugs: No Caffeine use: Yes Place of Residence: Home Review of Systems General: As per HPI Physical Examination - Vital Signs Temperature: 98.1 F Blood Pressure: 163/72 Pulse: 76 Respirations: 20 Pulse Ox (%): 95 - Physical Exam General: Alert, In no apparent distress HEENT: Atraumatic, PERRLA, Mucous membr. moist/pink, EOMI, Sclerae nonicteric Neck: Supple, 2+ carotid pulse no bruit, No LAD, Without JVD or thyroid abnormality Respiratory: Clear to auscultation bilaterally, Normal air movement Cardiovascular: Regular rate/rhythm, Normal S1 S2 Gastrointestinal: Normal bowel sounds, No tenderness Musculoskeletal: No tenderness Integumentary: No rashes Neurological: Normal gait, Normal speech, Normal strength at 5/5 x4 extr, Normal tone, Normal affect Lymphatics: No axilla or inguinal lymphadenopathy - Studies Laboratory Data (last 24 hrs) 05/24/18 04:25: Creatinine 0.80 05/24/18 04:25: WBC 15.1 H, Hgb 12.5, Hct 36.8, Plt Count 288 05/24/18 04:25: Sodium 140, Potassium 3.5, BUN 12, Creatinine 0.80, Glucose 174 H Assessment and Plan - Problems (Diagnosis) (1) Hematuria Current Visit: Yes Status: Acute Plan: Gross Hematuria noted in the ER. Most Likely 2.2 to UTI -S.P Bladder Irrigation in the ER -Currently on CBI per Urology Reccs -Urology consulted. awaiting further reccs -H/H q8h Qualifiers: Hematuria type: gross Qualified Code(s): R31.0 - Gross hematuria (2) UTI (urinary tract infection) Current Visit: Yes Status: Acute Plan: UA with UTI -On Ciprofloxacin now -Urine culture pending -CBI for hematuria and Urology consulted. Qualifiers: Urinary tract infection type: acute cystitis Hematuria presence: with hematuria Qualified Code(s): N30.01 - Acute cystitis with hematuria (3) Diverticulitis Onset Date: 09/24/16 Current Visit: No Status: Acute Plan: Sigmoid Colon Diverticulitis on ABD CT -Stool Occult pending -No gross bleeding noted -On cipro and flagyl now -NPO for now as well. 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
[2018-05-24] MEDS: SODIUM CHL 0.9% IRR SOLN 2000 ML IRR SCH ×2 (13:20→13:29)
[2018-05-24] MEDS: METRONIDAZOLE 500mg IVPB 500 MG/100 ML BAG IV SCH ×3 (13:33→23:04)
[2018-05-24] MEDS ORDERED: DIPHENHYDRAMINE 50 MG/ML VIAL IV PRN (13:41)
[2018-05-24] MEDS ORDERED: CIPROFLOXACIN 400mg IV 400 MG/200 ML BAG IV SCH (14:00)
[2018-05-24] MEDS ORDERED: POTASSIUM CL SA 10 MEQ TAB PO ONE (16:00)
[2018-05-24] MEDS: PIPER/TAZO/NS 3.375gm 3.375 GM/100 ML BAG IVPB SCH (16:38)
--- NOTE | 2018-05-24 18:34 | CON ---
History Of Present Illness: This is a pleasant 72-year-old female who was in good state of health. She has history of diabetes, hypertension, who presents to the ER complaining of lower abdominal pain and some gross hematuria this morning. She said it did burn after she voided. She has never had any urinary tract infections before, this is her first time. She came to the emergency room where she was admitted. A 3 way Orellana was placed that irrigated, but I was called, urine was still bloody, so we started normal saline CBI. Urine is now clear. Her urine cultures were pending. She has been started on ciprofloxacin and Flagyl. A CAT scan was also done, some history of diverticulitis on the left side so this may also be part of her pain. She says she has a history of Cipro, which causes itching and hives. She is doing so far okay. I will discuss with the primary care about switching. Home Medications: Amlodipine, _, Glucotrol, carvedilol, telmisartan, , doxazosin. Past Medical/surgical History: Hypertension, diabetes, non-insulin dependent diabetes mellitus, hysterectomy, cholecystectomy, bowel _ removal of basal carcinoma right side forehead, and bilateral cataract surgery. Family History: Mother had hypertension, diabetes. Sister has hypertension, diabetes. Dad and mom with hypertension and diabetes. Social History: Never smoked. No new drugs. No caffeine use. Resides at home. Review of Systems: As per HPI a 10-point review of system otherwise normal. Physical Examination: Vital Signs: Stable. Blood pressure stable. Temperature 98.1, pulse 76, respiratory rate 20, blood pressure 163/72, sats 95%. General: Alert and oriented. No acute distress. HEENT: Atraumatic, normocephalic. Neck: Supple. Respiratory: Clear. Cardiovascular: S1, S2. Gastrointestinal: Normal bowel sounds, no tenderness. Skin: No rashes. Neurologic: Normal speech and gait. Lymphatics: Normal. Laboratory Studies: White count 15.1, H and H 12 and 36, platelet count 288. Chemistry shows sodium 140, potassium 3.5, chloride 104, carbon dioxide 29, BUN 4, creatinine 0.8, GFR 70, glucose 174. Urine shows 3+ blood, 3+ leukocyte esterase, RBCs too numerous to count, white cells 10-20. There is reflex culture pending. Assessment: Left diverticulitis, gross hematuria secondary to urinary tract infection, currently clear. She will need to continue antibiotics. We will discuss about switching Cipro to something else since she does claim that she has an allergy. Observe for any allergic reactions and we will go ahead and treat her diverticulitis also. As far as her hematuria is concerned, it is pretty much resolved. We can remove the catheter in the morning if clear. Thank you very much. CHAS/FAUSTO Voice ID: [id number] Report ID: [id number] MTDXander
[2018-05-25 04:10] LABS: Absolute Lymphocytes (CBC) 1.4 K/uL (0.7-4.9); Absolute Monocytes 0.7 K/uL (0.1-1.3); Absolute Neutrophil 7.7 K/uL (1.8-8.0); Basophils % 0.9 % (0-1.3); Eosinophils % 0.4 % (0-4.4); Hematocrit 32.4 % (36.0-45.0); Lymphocytes % 14.2 % (15.3-44.8); MCH 29.6 pg (27.0-35.0); MCV 86.2 fL (80-100); MPV 7.4 fL (7.6-11.3); Monocytes % 7.4 % (3.3-12.3); RBC Red Blood Cell Count 3.76 M/uL (3.86-4.86)
[2018-05-25 04:31] LABS: Albumin 3.2 g/dL (3.4-5.0); Bilirubin Total 0.6 mg/dL (0.2-1.0); Magnesium 1.7 mg/dL (1.8-2.4); Phosphorus 2.7 mg/dL (2.5-4.9); Potassium 3.7 mmol/L (3.5-5.1); Protein, Total 6.4 g/dL (6.4-8.2)
[2018-05-25] MEDS: MAGNESIUM SULFATE 1 gm IVPB 1 GM/100 ML BAG IV ONE ×2 (04:40)
[2018-05-25] MEDS ORDERED: POTASSIUM CL SA 10 MEQ TAB PO ONE (04:41)
[2018-05-25] MEDS: NA CHLORIDE 0.9% 1,000 ML IV SCH ×2 (04:59→15:00)
[2018-05-25] MEDS ORDERED: Magnesium Sulfate 1gm IVPB 1 GM/50 ML BAG IV ONE (05:00)
[2018-05-25] MEDS: METRONIDAZOLE 500mg IVPB 500 MG/100 ML BAG IV SCH ×3 (05:20→17:32)
[2018-05-25] MEDS: INSULIN -REGULAR HUMAN 50 UNIT/0.5 ML ML SQ SCH ×4 (07:30→21:00)
[2018-05-25] MEDS: PIPER/TAZO/NS 3.375gm 3.375 GM/100 ML BAG IVPB SCH ×3 (08:28→17:31)
[2018-05-25] MEDS: CARVEDILOL 12.5 MG TAB PO SCH ×2 (08:28→21:57)
[2018-05-25] MEDS: AMLODIPINE 10 MG TAB PO SCH (08:29)
--- NOTE | 2018-05-25 10:50 | P.PN ---
Subjective Date of Service: 05/25/18 Primary Care Provider: Dr Adan Chief Complaint: Hematuria Subjective: Tolerating diet, Improving, Doing well Review of Systems General: As per HPI Physical Examination - Vital Signs Temperature: 97.3 F Blood Pressure: 156/65 Pulse: 63 Respirations: 18 Pulse Ox (%): 98 - Physical Exam General: Alert, In no apparent distress, Oriented x3 HEENT: Atraumatic, PERRLA, EOMI Neck: Supple, JVD not distended Respiratory: Clear to auscultation bilaterally, Normal air movement Cardiovascular: Regular rate/rhythm, Normal S1 S2 Gastrointestinal: Normal bowel sounds, No tenderness Musculoskeletal: No tenderness Integumentary: No rashes Neurological: Normal speech, Normal tone, Normal affect Lymphatics: No axilla or inguinal lymphadenopathy - Studies Medications List Reviewed: Yes Assessment & Plan - Problems (Diagnosis) (1) Hematuria Onset Date: 05/25/18 Current Visit: Yes Status: Acute Plan: Gross Hematuria noted in the ER. Most Likely 2.2 to UTI -S.P Bladder Irrigation. Hematuria now resolved. -Urology consulted. Reccs Appreciated -H/H q8h Qualifiers: Hematuria type: gross Qualified Code(s): R31.0 - Gross hematuria (2) UTI (urinary tract infection) Onset Date: 05/25/18 Current Visit: Yes Status: Acute Plan: UA with UTI -On zosyn now -Urine culture + for gram - rods Qualifiers: Urinary tract infection type: acute cystitis Hematuria presence: with hematuria Qualified Code(s): N30.01 - Acute cystitis with hematuria (3) Diverticulitis Onset Date: 05/25/18 Current Visit: Yes Status: Acute Plan: Sigmoid Colon Diverticulitis on ABD CT -Stool Occult pending -No gross bleeding noted -On zosyn and flagyl now -CLD for now as well. Qualifiers: Diverticulitis site: large intestine Diverticulitis bleeding: without bleeding Diverticulitis complication: without perforation or abscess Qualified Code(s): K57.32 - Diverticulitis of large intestine without perforation or abscess without bleeding (4) Diabetes Onset Date: 09/12/15 Current Visit: No Status: Chronic Plan: ISS Qualifiers: Diabetes mellitus type: type 2 Diabetes mellitus terminal carman insulin use: without terminal carman use Diabetes mellitus complication status: without complication Qualified Code(s): E11.9 - Type 2 diabetes mellitus without complications (5) Essential hypertension Onset Date: 02/27/18 Current Visit: No Status: Chronic Plan: Restart home medication -Hold ARB due to Hematuria Discharge Plan: Home Plan to discharge in: 48 Hours - Code Status/Comfort Care Code Status Assessed: Yes Critical Care: No
--- NOTE | 2018-05-25 16:55 | PN ---
Subjective: The patient is feeling well. Urine is clear. Orellana catheter came out this morning. Sh e voided clearly. Objective: Vital Signs: 97.3, pulse 63, respirations 18, BP 156/65, sats 98%. Laboratory Data: The patient is growing gram-negative rods. Assessment: Urinary tract infection with hematuria. Hematuria is clearing. She is currently on IV antibiotics. We will await for final culture and sensitivity and then send her home on antibiotics f or more 7 days or so. CHAS/FAUSTO Voice ID: [id number] Report ID: [id number]
[2018-05-26] MEDS: METRONIDAZOLE 500mg IVPB 500 MG/100 ML BAG IV SCH ×3 (01:04→11:41)
[2018-05-26] MEDS: NA CHLORIDE 0.9% 1,000 ML IV SCH ×2 (01:05→11:00)
[2018-05-26] MEDS: PIPER/TAZO/NS 3.375gm 3.375 GM/100 ML BAG IVPB SCH ×2 (01:53→08:30)
[2018-05-26 06:21] LABS: Absolute Lymphocytes (CBC) 1.3 K/uL (0.7-4.9); Absolute Monocytes 0.6 K/uL (0.1-1.3); Eosinophils % 2.3 % (0-4.4); Hematocrit 33.3 % (36.0-45.0); Lymphocytes % 16.3 % (15.3-44.8); MCH 29.3 pg (27.0-35.0); MCV 86.2 fL (80-100); MPV 8.1 fL (7.6-11.3); Monocytes % 6.8 % (3.3-12.3); RBC Red Blood Cell Count 3.86 M/uL (3.86-4.86)
[2018-05-26 06:30] LABS: Albumin 3.2 g/dL (3.4-5.0); Bilirubin Total 0.5 mg/dL (0.2-1.0); Magnesium 1.9 mg/dL (1.8-2.4); Phosphorus 2.4 mg/dL (2.5-4.9); Potassium 3.7 mmol/L (3.5-5.1); Protein, Total 6.4 g/dL (6.4-8.2)
[2018-05-26] MEDS ORDERED: POTASSIUM PHOS IN 0.9 % NACL 15 MMOL/250 ML BAG IV ONE (06:50)
[2018-05-26] MEDS: INSULIN -REGULAR HUMAN 50 UNIT/0.5 ML ML SQ SCH ×2 (07:30→11:30)
[2018-05-26] MEDS: AMLODIPINE 10 MG TAB PO SCH (08:30)
[2018-05-26] MEDS: CARVEDILOL 12.5 MG TAB PO SCH (08:30)
[2018-05-26 11:18] VITALS: O2SAT 99
--- NOTE | 2018-05-26 11:57 | PN ---
Date of Progress Note: 05/26/2018 Subjective: The patient is doing well. No more hematuria. Her urine culture came back E coli, sens itive to Bactrim, nitrofurantoin, Augmentin, Cipro, and Levaquin p.o. She also has left-sided divert iculitis, so she could go home on either Bactrim or Augmentin or nitrofurantoin and followup p.r.n. She will also need treatment for diverticulitis and follow up with GI. CHAS/FAUSTO Voice ID: [id number] Report ID: [id number]
[2018-05-26 12:29] VITALS: BP 157/79; TEMP 96.9
--- NOTE | 2018-05-26 16:23 | P.DS ---
Admission Date: 05/24/18 Discharge Date: 05/26/18 Primary Care Provider: Dr Adan Disposition: ROUTINE DISCHARGE Discharge Condition: GOOD Reason for Admission: Hematuria Consultations: Dr Cantu - Urology - Problems (1) Hematuria Onset Date: 05/25/18 Status: Resolved Qualifiers: Hematuria type: gross Qualified Code(s): R31.0 - Gross hematuria (2) UTI (urinary tract infection) Onset Date: 05/25/18 Status: Acute Qualifiers: Urinary tract infection type: acute cystitis Hematuria presence: with hematuria Qualified Code(s): N30.01 - Acute cystitis with hematuria (3) Diverticulitis Onset Date: 05/25/18 Status: Acute Qualifiers: Diverticulitis site: large intestine Diverticulitis bleeding: without bleeding Diverticulitis complication: without perforation or abscess Qualified Code(s): K57.32 - Diverticulitis of large intestine without perforation or abscess without bleeding (4) Diabetes Onset Date: 09/12/15 Status: Chronic Qualifiers: Diabetes mellitus type: type 2 Diabetes mellitus terminal makeup operator insulin use: without terminal makeup operator use Diabetes mellitus complication status: without complication Qualified Code(s): E11.9 - Type 2 diabetes mellitus without complications (5) Essential hypertension Onset Date: 02/27/18 Status: Chronic Brief History of Present Illness: This is a 72-year-old female with significant past medical history of hypertension, diabetes, who presented to the ED complaining of having some lower abdominal pain this morning that started around 2:00 a.m. Patient stated that she was in her regular state of health till this morning around 2:00 a.m. where she noticed that she started having some excruciating pain in the left lower quadrant and mid lower quadrant of the abdominal area and went to the restroom. Patient noticed that she was having bloody urine at that time. Patient stated that she has never had anything like this before but she does have history of diverticulosis. Patient however stated that her stool was not bloody at all. Patient stated that she currently has not been on any blood thinners. She also complains of having some burning urination and painful urination. No other complaints to offer at this time. Denies having any fever chills nausea vomiting chest pain or shortness of breath at this time. In the ER patient was found to have hematuria along with urinary tract infection and mild diverticulitis of the sigmoid colon and thus was referred over for admission for further care. Hospital Course: Overall during the hospital stay patient remained stable Patient initially admitted to the hospital for hematuria son was found to have urinary tract infection along the diverticulitis of the sigmoid colon. Patient was started on IV antibiotics and had a continuous bladder irrigation order. Urology was consulted who agreed with the plan. Patient's hematuria resolved and continuous bladder irrigation was stopped. Patient was initially started on IV is zosyn and flagyl. Patient had E. coli growing in her urine culture and thus was switched over to Augmentin p.o. Patient did markedly well and thus was discharged home under stable condition. For patient's a sigmoid colon diverticulitis. Patient initially was placed on IV Zosyn and Flagyl. And then was discharged home on p.o. Augmentin as well. Patient was asked to follow up with GI in about 6 weeks post discharge for F.u colonoscopy. Vital Signs/Physical Exam: Temp Pulse Resp BP Pulse Ox 96.9 F 60 20 157/79 H 99 05/26/18 12:00 05/26/18 12:00 05/26/18 12:00 05/26/18 12:00 05/26/18 12:00 General: Alert, In no apparent distress HEENT: Atraumatic, PERRLA, EOMI Neck: Supple, JVD not distended Respiratory: Clear to auscultation bilaterally, Normal air movement Cardiovascular: Regular rate/rhythm, Normal S1 S2 Gastrointestinal: Normal bowel sounds, No tenderness Musculoskeletal: No tenderness Integumentary: No rashes Neurological: Normal speech, Normal tone, Normal affect Lymphatics: No axilla or inguinal lymphadenopathy Laboratory Data at Discharge: WBC 8.1 K/uL (4.3-10.9) D 05/26/18 05:49 Hgb 11.3 g/dL (12.0-15.0) L 05/26/18 05:49 Hct 33.3 % (36.0-45.0) L 05/26/18 05:49 Plt Count 246 K/uL (152-406) 05/26/18 05:49 Sodium 142 mmol/L (136-145) 05/26/18 05:49 Potassium 3.7 mmol/L (3.5-5.1) 05/26/18 05:49 BUN 10 mg/dL (7-18) 05/26/18 05:49 Creatinine 0.70 mg/dL (0.55-1.3) 05/26/18 05:49 Glucose 163 mg/dL (74-106) H 05/26/18 05:49 Phosphorus 2.4 mg/dL (2.5-4.9) L 05/26/18 05:49 Magnesium 1.9 mg/dL (1.8-2.4) 05/26/18 05:49 Total Bilirubin 0.5 mg/dL (0.2-1.0) 05/26/18 05:49 AST 11 U/L (15-37) L 05/26/18 05:49 ALT 18 U/L (12-78) 05/26/18 05:49 Alkaline Phosphatase 63 U/L (45-117) 05/26/18 05:49 Home Medications: Amlodipine Besylate [Norvasc] 10 mg PO DAILY WITH BREAKFAST 09/01/15 Metformin HCl [Glucophage] 1,000 mg PO BID 09/01/15 glipiZIDE [Glucotrol*] 5 mg PO DAILY 09/01/15 Carvedilol [Coreg*] 25 mg PO BID 02/26/18 Telmisartan 80 mg PO DAILY 02/26/18 Doxazosin Mesylate 1 tab PO BEDTIME 05/24/18 Amox/Clavulanate [Augmentin 500-125 mg Tab] 500 mg PO BID #20 tab 05/26/18 Ondansetron HCl [Zofran] 4 mg PO Q6H PRN #30 tablet 05/26/18 New Medications: Amox/Clavulanate [Augmentin 500-125 mg Tab] 500 mg PO BID #20 tab Ondansetron HCl [Zofran] 4 mg PO Q6H PRN #30 tablet PRN Reason: Nausea Patient Discharge Instructions: Please f.u with PCP and Dr Cantu in the clinic in 1 to 2 weeks post discharge. new medication. Augmentin 1 tab BID for 10 days Diet: Regular Activity: Ad aleksander Followup: Tima Cantu MD [ACTIVE - CAN ADMIT] - (follow up in 1-2 weeks call to schedule appointment) Fatou Adan MD [Primary Care Provider] - 1 Week (call to schedule appointment)
== END 2018-05-26 13:12 | disposition home or self-care (01) | DRG 690 ==
LOC: ER 03:42 → ERHOLD 06:38 → 4TH 08:59
PROVIDERS: ADMIT Family Medicine; ATTEND Family Medicine
DX: N30.01 Acute cystitis with hematuria (principal); K57.32 Diverticulitis of large intestine without perforation or abscess without bleeding; B96.20 Unspecified Escherichia coli [E. coli] as the cause of diseases classified elsewhere; E11.9 Type 2 diabetes mellitus without complications; I10 Essential (primary) hypertension; Z79.84 Long term (current) use of oral hypoglycemic drugs; Z88.1 Allergy status to other antibiotic agents
CPT/HCPCS: 36415; 74176; 76377; 80048; 80053; 81001; 82274; 82962; 83735; 84100; 85025; 87077; 87086; 87088; 87186; 96365; 99285; J0696; J2543; J3475; J7030

== ENCOUNTER 2018-07-17 14:04 | Emergency (ER) | payer MEDICARE ==
--- OUTSIDE RECORDS SUMMARY | 2018-07-17 14:06 | XMS REPORT ---
:1945 Author Organization [employer] Care Team Providers Name Role Phone Natalia Ross Provider Role Unavailable Allergies No Known Allergies Problems Problem Type Condition Code Onset Dates Condition Status Problem Diabetes E11.9 Active Problem Hypertension, unspecified type I10 Active Problem Hypertension I10 Active Medications Medication Code System Code Instructions Start Date End Date Status Dosage Cipro [facility] 09616216773 500 MG Orally Jun 22, Jun 27, Active 1 tablet every 12 hrs 2017 2017 Results No Known Results Summary Purpose [employer]ClinicalWorks Submission
--- OUTSIDE RECORDS SUMMARY | 2018-07-17 14:06 | XMS REPORT ---
[...] End Status Dosage System Date Date Hydrochlorothiazide [facility] 26492772904 25 MG Orally Active 1 tablet Once a day in the morning Vitamin D-3 [facility] 16575-08858 1000 UNIT Active 2 capsules Orally Once a day Klor-Con 10 [facility] 70341719639 10 MEQ Orally Active 1 tablet Twice a day with food Iron [facility] 65346099735 325 (65 Fe) MG Active 1 tablet Orally Once a day Telmisartan [facility] 22673131635 80 MG Orally Active 1 tablet Once a day Coreg [facility] 55976588886 25 mg Orally Active 1 tablet Twice daily GlipiZIDE [facility] 32998100935 5 MG Orally Active 1 tablet Once a day Metformin HCl [facility] 33102868872 1000 MG Orally Active 1 tablet Twice daily with a meal Doxazosin Mesylate [facility] 58546942978 1 MG Orally Gabby Active 1 tablet Once a day , in evening 2018 for high blood pressure Amlodipine Besylate [facility] 08886822363 10 MG Orally Active 1 tablet Once a day Results No Known Results Summary Purpose [employer] Submission
--- OUTSIDE RECORDS SUMMARY | 2018-07-17 14:06 | XMS REPORT ---
:1945 Author Organization [employer] Care Team Providers Name Role Phone Natalia Ross Provider Role Unavailable Allergies, Adverse Reactions, Alerts Substance Reaction Event Type N.K.D.A. Info Not Available Non Drug Allergy Problems Problem Type Condition Code Onset Dates Condition Status Problem Diabetes E11.9 Active Problem Hypertension, unspecified type I10 Active Problem Hypertension I10 Active Assessment Hematuria, unspecified type R31.9 Active Medications Medication Code Code Instructions Start End Status Dosage System Date Date Telmisartan [facility] 04646836733 80 MG Orally Active 1 tablet Once a day GlipiZIDE [facility] 01130578849 5 MG Orally Active 1 tablet Once a day Doxazosin [facility] 55776839616 1 MG Orally Gabby Active 1 tablet in Mesylate Once a day 2017 evening for high blood pressure Coreg [facility] 62480679705 25 mg Orally Active 1 tablet Twice daily Amlodipine [facility] 21992621471 10 MG Orally Active 1 tablet Besylate Once a day Klor-Con 10 [facility] 39207438918 10 MEQ Orally Active 1 tablet Twice a day with food Iron [facility] 36932965229 325 (65 Fe) MG Active 1 tablet Orally Once a day Vitamin D-3 [facility] 97226452133 1000 UNIT Active 2 capsules Orally Once a day Metformin HCl [facility] 71686600632 1000 MG Orally Active 1 tablet Twice daily with a meal Results Name Result Date Reference Range Unit Abnormality Flag URINALYSIS AUTO W/O SCOPE (20005) ----NIT neg [id number] ----URO 0.2 [id number] ----PROTEIN 1+ [id number] ----pH 6.0 [id number] ----BLO neg [id number] ----GLUCOSE neg [id number] ----DEDE neg [id number] ----BILIRUBIN neg [id number] ----KETONES neg [id number] ----SPECIFIC GRAVITY >=1.030 [id number] PVR ----PVR 0 [id number] Summary Purpose eClinicalWorks Submission
--- OUTSIDE RECORDS SUMMARY | 2018-07-17 14:06 | XMS REPORT ---
:1945 Author Organization [employer] Care Team Providers Name Role Phone Loco Fatou Provider Role Unavailable Allergies, Adverse Reactions, Alerts Substance Reaction Event Type N.K.D.A. Info Not Available Non Drug Allergy Problems Problem Type Condition Code Onset Dates Condition Status Assessment Hypertension, unspecified type I10 Active Problem Diabetes E11.9 Active Problem Hypertension, unspecified type I10 Active Problem Hypertension I10 Active Assessment Urinary tract infection, site not N39.0 Active specified Assessment Follow-up exam Z09 Active Assessment Hematuria, unspecified type R31.9 Active Medications Medication Code Code Instructions Start End Status Dosage System Date Date Coreg [facility] 64655606585 25 mg Orally Active 1 tablet Twice daily Klor-Con 10 [facility] 56174285262 10 MEQ Orally Active 1 tablet Twice a day with food Iron [facility] 12841277436 325 (65 Fe) MG Active 1 tablet Orally Once a day Telmisartan [facility] 17834807496 80 MG Orally Active 1 tablet Once a day Doxazosin [facility] 38092791456 1 MG Orally Gabby Active 1 tablet in Mesylate Once a day 2017 evening for high blood pressure GlipiZIDE [facility] 48603971234 5 MG Orally Active 1 tablet Once a day Metformin HCl [facility] 43295985966 1000 MG Orally Active 1 tablet Twice daily with a meal Vitamin D-3 [facility] 70342307170 1000 UNIT Active 2 capsules Orally Once a day Amlodipine [facility] 05005142898 10 MG Orally Active 1 tablet Besylate Once a day Results No Known Results Summary Purpose eClinicalWorks Submission
--- OUTSIDE RECORDS SUMMARY | 2018-07-17 14:06 | XMS REPORT ---
:1945 Author Organization eClinicalWorks Care Team Providers Name Role Phone Cody Natalia Provider Role Unavailable Allergies, Adverse Reactions, Alerts Substance Reaction Event Type N.K.D.A. Info Not Available Non Drug Allergy Problems Problem Type Condition Code Onset Dates Condition Status Problem Diabetes E11.9 Active Problem Hypertension, unspecified type I10 Active Problem Hypertension I10 Active Assessment Hematuria, unspecified type R31.9 Active Medications Medication Code Code Instructions Start End Status Dosage System Date Date Amlodipine [facility] 44208803569 10 MG Orally Active 1 tablet Besylate Once a day Doxazosin [facility] 71245103325 1 MG Orally Gabby Active 1 tablet in Mesylate Once a day 2017 evening for high blood pressure Klor-Con 10 [facility] 02385246629 10 MEQ Orally Active 1 tablet Twice a day with food Coreg [facility] 13817017018 25 mg Orally Active 1 tablet Twice daily Telmisartan [facility] 25758464785 80 MG Orally Active 1 tablet Once a day Vitamin D-3 [facility] 13246529724 1000 UNIT Active 2 capsules Orally Once a day GlipiZIDE [facility] 88221352425 5 MG Orally Active 1 tablet Once a day Iron [facility] 75300344449 325 (65 Fe) MG Active 1 tablet Orally Once a day Metformin HCl [facility] 20862357622 1000 MG Orally Active 1 tablet Twice daily with a meal Results Name Result Date Reference Range Unit Abnormality Flag URINALYSIS AUTO W/O SCOPE (61552) ----NIT neg [id number] ----URO 0.2 [id number] ----PROTEIN neg [id number] ----pH 6.0 [id number] ----BLO neg [id number] ----GLUCOSE neg [id number] ----DEDE neg [id number] ----BILIRUBIN neg [id number] ----KETONES neg [id number] ----SPECIFIC GRAVITY 1.010 [id number] Summary Purpose eClinicalWorks Submission
--- NOTE | 2018-07-17 14:55 | RAD REPORT ---
EXAM DESCRIPTION: CT - Head Brain Wo Cont - 07/17/2018 2:44 pm CLINICAL HISTORY: Dizziness COMPARISON: 2016 TECHNIQUE: Computed axial tomography of the head was obtained. IV contrast was not requested. All CT scans are performed using dose optimization technique as appropriate and may include automated exposure control or mA/KV adjustment according to patient size. FINDINGS: An intracranial bleed is not seen . The ventricles are normal in caliber. No extra-axial fluid collection is noted. A small right frontal scalp lipoma is present. Fluid within the sinuses/ mastoids is not seen. IMPRESSION: No acute intracranial abnormality is seen. If patient's symptoms persist MRI of the bra in would be recommended.
[2018-07-17] MEDS ORDERED: cloNIDine HCl 0.1 MG TAB ONE (16:15)
--- NOTE | 2018-07-17 16:29 | ER ---
Nurse's Notes [facility] Name: Jesi Lee Age: 72 yrs Sex: Female : 1945 Arrival Date: 07/17/2018 Time: 14:07 Bed 5 Private MD: Fatou Adan Diagnosis: Headache Presentation: 07/17 14:10 Presenting complaint: Patient states: Patient reports feeling lightheaded and pressure aj in head. Reports "bump" on right top of head for 10 years that has gotten worse. Transition of care: patient was not received from another setting of care. Onset of symptoms was July 17, 2018. Risk Assessment: Do you want to hurt yourself or someone else? Patient reports no desire to harm self or others. Initial Sepsis Screen: Does the patient meet any 2 criteria? No. Patient's initial sepsis screen is negative. Does the patient have a suspected source of infection? No. Patient's initial sepsis screen is negative. Care prior to arrival: None. 14:10 Method Of Arrival: Ambulatory aj 14:10 Acuity: RENETTA 2 aj Triage Assessment: 14:12 General: Appears in no apparent distress. comfortable, Behavior is calm, cooperative, aj appropriate for age. Pain: Denies pain. Neuro: Level of Consciousness is awake, alert, obeys commands, Oriented to person, place, time, situation, Appropriate for age Reports dizziness, pressure in head. Respiratory: Airway is patent Respiratory effort is even, unlabored, Respiratory pattern is regular, symmetrical. Derm: Skin is intact, is healthy with good turgor, Skin is pink, warm \\T\\ dry. normal. 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 - Social history:: Smoking status: Patient/guardian denies using tobacco. - Ebola Screening: : Patient negative for fever greater than or equal to 101.5 degrees Fahrenheit, and additional compatible Ebola Virus Disease symptoms Patient denies exposure to infectious person Patient denies travel to an Ebola-affected area in the 21 days before illness onset No symptoms or risks identified at this time. Screenin:37 Abuse screen: Denies threats or abuse. Denies injuries from another. Nutritional ch screening: No deficits noted. Tuberculosis screening: No symptoms or risk factors identified. Fall Risk None identified. Assessment: 14:37 General: Appears in no apparent distress. comfortable, Behavior is calm, cooperative, ch appropriate for age. Pain: Denies pain. Neuro: Level of Consciousness is awake, alert, obeys commands, Oriented to person, place, time, situation, [employer] are equal bilaterally Moves all extremities. Full function Gait is steady, Speech is normal, Facial symmetry appears normal, Facial symmetry: tongue is midline, Pupils are PERRLA. Respiratory: Airway is patent Respiratory effort is even, unlabored, Breath sounds are clear bilaterally. GI: No signs and/or symptoms were reported involving the gastrointestinal system. 15:47 Reassessment: Patient appears in no apparent distress at this time. Patient and/or ch family updated on plan of care and expected duration. Pain level reassessed. Patient is alert, oriented x 3, equal unlabored respirations, skin warm/dry/pink. 16:51 Reassessment: Patient appears in no apparent distress at this time. Patient and/or ch family updated on plan of care and expected duration. Pain level reassessed. Patient is alert, oriented x 3, equal unlabored respirations, skin warm/dry/pink. Patient denies pain at this time. Patient states feeling better. Patient states symptoms have improved. Vital Signs: 14:12 BP 200 / 90; Pulse 71; Resp 17; Temp 97.7; Pulse Ox 99% on R/A; Weight 61.23 kg; Height aj 5 ft. 1 in. (154.94 cm); 14:37 BP 166 / 78; Pulse 65; Resp 14; Temp 98.3; Pulse Ox 99% on R/A; Pain 0/10; ch 15:47 BP 180 / 82; Pulse 72; Resp 15; Temp 97.9; Pulse Ox 98% on R/A; Pain 2/10; ch 16:30 BP 124 / 62; Pulse 68; Resp 15; Temp 98.3; Pulse Ox 99% on R/A; ch 16:44 BP 114 / 57; Pulse 54; Resp 16; Temp 97.4; Pulse Ox 97% on R/A; ph 14:12 Body Mass Index 25.51 (61.23 kg, 154.94 cm) ED Course: 14:07 Patient arrived in ED. sb2 14:07 Fatou Adan MD is Private Physician. sb2 14:11 Triage completed. aj 14:12 Arm band placed on left wrist. Patient placed in an exam room. aj 14:13 Milagros Salas, RAUL is Primary Nurse. ch 14:30 Blade Norton MD is Attending Physician. kdr 14:37 No apparent distress. Resting quietly. ch 14:37 Patient has correct armband on for positive identification. Bed in low position. Call light in reach. Side rails up X 1. Adult w/ patient. Pulse ox on. NIBP on. Warm blanket given. 14:37 No provider procedures requiring assistance completed. ch 14:44 CT Head Brain wo Cont In Process Unspecified. EDMS 15:47 Patient did not have IV access during this emergency room visit. ch 16:27 Fatou Adan MD is Referral Physician. kdr 16:28 Philip Elias MD is Referral Physician. kdr Administered Medications: 16:10 Drug: cloNIDine 0.2 mg Route: PO; ch 16:28 Follow up: Response: No adverse reaction; Marked relief of symptoms Outcome: 16:28 Discharge ordered by . kdr 16:30 Discharged to home ambulatory, with family. ch 16:30 Condition: stable 16:30 Discharge instructions given to patient, family, Instructed on discharge instructions, follow up and referral plans. medication usage, Demonstrated understanding of instructions, follow-up care, medications, Prescriptions given X 1. 16:53 Patient left the ED. Signatures: Dispatcher [employer] EDMS Milagros Salas, RN Ayla Mcclure ch, RN RN aj Rittger, Kevin, MD MD [facility] Malia Sorto RN RN Beckie Adams sb2 Corrections: (The following items were deleted from the chart) 14:11 14:10 Acuity: RENETTA 3 aj aj
--- NOTE | 2018-07-17 16:29 | EDPHYS ---
Physician Documentation [facility] Name: Jesi Lee Age: 72 yrs Sex: Female : 1945 Arrival Date: 07/17/2018 Time: 14:07 Bed 5 Private MD: Fatou Adan ED Physician Blade Norton HPI: 07/17 15:32 This 72 yrs old Female presents to ER via Ambulatory with complaints of HEAD PAIN.kdr 15:32 The patient complains of pain to the forehead and right islam. The patient describes kdr the headache as a pressure, Dull. Onset: The symptoms/episode began/occurred suddenly, just prior to arrival. Associated signs and symptoms: The patient has no apparent associated signs or symptoms. Severity of symptoms: At its worst the pain was moderate, in the emergency department the pain has improved, moderately. Headache History: Denies prior headaches. The symptoms are alleviated by nothing. the symptoms are aggravated by nothing. The patient has not experienced similar symptoms in the past. The patient has not recently seen a physician. 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 - Social history:: Smoking status: Patient/guardian denies using tobacco. - Ebola Screening: : Patient negative for fever greater than or equal to 101.5 degrees Fahrenheit, and additional compatible Ebola Virus Disease symptoms Patient denies exposure to infectious person Patient denies travel to an Ebola-affected area in the 21 days before illness onset No symptoms or risks identified at this time. ROS: 15:32 Constitutional: Negative for fever, chills, and weight loss, Eyes: Negative for injury, kdr pain, redness, and discharge. Exam: 18:04 Constitutional: This is a well developed, well nourished patient who is awake, alert, kdr and in no acute distress. Head/Face: Normocephalic, atraumatic - there is a small raised area to the right frontal scalp - does not appear to be o/w problematic Eyes: Pupils equal round and reactive to light, extra-ocular motions intact. Lids and lashes normal. Conjunctiva and sclera are non-icteric and not injected. Cornea within normal limits. Periorbital areas with no swelling, redness, or edema. Neck: Trachea midline, no thyromegaly or masses palpated, and no cervical lymphadenopathy. Supple, full range of motion without nuchal rigidity, or vertebral point tenderness. No Meningismus. Chest/axilla: Normal chest wall appearance and motion. Nontender with no deformity. No lesions are appreciated. Cardiovascular: Regular rate and rhythm with a normal S1 and S2. No gallops, murmurs, or rubs. Normal PMI, no JVD. No pulse deficits. Respiratory: Lungs have equal breath sounds bilaterally, clear to auscultation and percussion. No rales, rhonchi or wheezes noted. No increased work of breathing, no retractions or nasal flaring. Abdomen/GI: Soft, non-tender, with normal bowel sounds. No distension or tympany. No guarding or rebound. No evidence of tenderness throughout. Back: No spinal tenderness. No costovertebral tenderness. Full range of motion. Skin: Warm, dry with normal turgor. Normal color with no rashes, no lesions, and no evidence of cellulitis. MS/ Extremity: Pulses equal, no cyanosis. Neurovascular intact. Full, normal range of motion. Neuro: Awake and alert, GCS 15, oriented to person, place, time, and situation. Cranial nerves II-XII grossly intact. Motor strength 5/5 in all extremities. Sensory grossly intact. Cerebellar exam normal. Normal gait. Psych: Awake, alert, with orientation to person, place and time. Behavior, mood, and affect are within normal limits. Vital Signs: 14:12 BP 200 / 90; Pulse 71; Resp 17; Temp 97.7; Pulse Ox 99% on R/A; Weight 61.23 kg; Height aj 5 ft. 1 in. (154.94 cm); 14:37 BP 166 / 78; Pulse 65; Resp 14; Temp 98.3; Pulse Ox 99% on R/A; Pain 0/10; ch 15:47 BP 180 / 82; Pulse 72; Resp 15; Temp 97.9; Pulse Ox 98% on R/A; Pain 2/10; ch 16:30 BP 124 / 62; Pulse 68; Resp 15; Temp 98.3; Pulse Ox 99% on R/A; ch 16:44 BP 114 / 57; Pulse 54; Resp 16; Temp 97.4; Pulse Ox 97% on R/A; ph 14:12 Body Mass Index 25.51 (61.23 kg, 154.94 cm) aj MDM: 16:28 Patient medically screened. kdr 18:04 Data reviewed: vital signs, nurses notes, lab test result(s), radiologic studies. kdr Counseling: I had a detailed discussion with the patient and/or guardian regarding: the historical points, exam findings, and any diagnostic results supporting the discharge/admit diagnosis, lab results, radiology results, the need for outpatient follow up. 07/17 14:33 Order name: CT Head Brain wo Cont; Complete Time: 15:32 ch Administered Medications: 16:10 Drug: cloNIDine 0.2 mg Route: PO; 16:28 Follow up: Response: No adverse reaction; Marked relief of symptoms Disposition: 07/17/18 16:28 Discharged to Home. Impression: Headache. - Condition is Stable. - Discharge Instructions: General Headache Without Cause. - Prescriptions for Tramadol 50 mg Oral Tablet - take 1 tablet by ORAL route every 8 hours as needed; 12 tablet. - Medication Reconciliation Form, Thank You Letter form. - Follow up: Fatou Adan MD; When: 2 - 3 days; Reason: If symptoms return, Further diagnostic work-up, Recheck today's complaints, Continuance of care, Re-evaluation by your physician. Follow up: Philip Elias MD; When: 2 - 3 days; Reason: If symptoms return, Further diagnostic work-up, Recheck today's complaints, Continuance of care, Re-evaluation by your physician. - Problem is new. - Symptoms are resolved. Signatures: Dispatcher [employer] EDMilagros Mcneal RN RN ch Myers, Amanda, RN RN aj Rittger, Kevin, MD MD kdr Corrections: (The following items were deleted from the chart) 16:53 16:28 07/17/2018 16:28 Discharged to Home. Impression: Headache. Condition is Stable. ch Forms are Medication Reconciliation Form, Thank You Letter, Antibiotic Education, Prescription Opioid Use. Follow up: Fatou Adan; When: 2 - 3 days; Reason: If symptoms return, Further diagnostic work-up, Recheck today's complaints, Continuance of care, Re-evaluation by your physician. Follow up: Philip Elias; When: 2 - 3 days; Reason: If symptoms return, Further diagnostic work-up, Recheck today's complaints, Continuance of care, Re-evaluation by your physician. Problem is new. Symptoms are resolved. kdr
[2018-07-17 17:10] VITALS: BP 114/57; TEMP 97.4; O2SAT 97
== END 2018-07-17 16:53 | disposition home or self-care (01) ==
LOC: ER 14:04
DX: R51 Headache (principal); I10 Essential (primary) hypertension; E11.9 Type 2 diabetes mellitus without complications; Z88.1 Allergy status to other antibiotic agents
CPT/HCPCS: 70450; 99284

== ENCOUNTER 2019-05-07 14:37 | Emergency (ER) | payer OTHER ==
--- OUTSIDE RECORDS SUMMARY | 2019-05-07 14:41 | XMS REPORT ---
:1945 Author Organization eClinicalWorks Care Team Providers Name Role Phone Natalia Ross Provider Role Unavailable Allergies No Known Allergies Problems Problem Type Condition Code Onset Dates Condition Status Problem Diabetes E11.9 Active Problem Hypertension, unspecified type I10 Active Problem Hypertension I10 Active Medications Medication Code System Code Instructions Start Date End Date Status Dosage Cipro [facility] 68410962356 500 MG Orally Jun 22, Jun 27, Active 1 tablet every 12 hrs 2017 2017 Results No Known Results Summary Purpose eClinicalWorks Submission
--- OUTSIDE RECORDS SUMMARY | 2019-05-07 14:41 | XMS REPORT ---
[...] End Status Dosage System Date Date Telmisartan [facility] 75996313050 80 MG Orally Active 1 tablet Once a day GlipiZIDE [facility] 73649993611 5 MG Orally Active 1 tablet Once a day Doxazosin [facility] 68898627902 1 MG Orally Gabby Active 1 tablet in Mesylate Once a day 2017 evening for high blood pressure Coreg [facility] 11382023530 25 mg Orally Active 1 tablet Twice daily Amlodipine [facility] 47505553405 10 MG Orally Active 1 tablet Besylate Once a day Klor-Con 10 [facility] 40942802391 10 MEQ Orally Active 1 tablet Twice a day with food Iron [facility] 77907533976 325 (65 Fe) MG Active 1 tablet Orally Once a day Vitamin D-3 [facility] 29336201338 1000 UNIT Active 2 capsules Orally Once a day Metformin HCl [facility] 26021540948 1000 MG Orally Active 1 tablet Twice daily with a meal Results Name Result Date Reference Range Unit Abnormality Flag URINALYSIS AUTO W/O SCOPE ([id number]) ----NIT neg [id number] ----URO 0.2 [id number] ----PROTEIN 1+ [id number] ----pH 6.0 20180617 ----BLO neg [id number] ----GLUCOSE neg [id number] ----DEDE neg [id number] ----BILIRUBIN neg [id number] ----KETONES neg [id number] ----SPECIFIC GRAVITY >=1.030 20180617 PVR ----PVR 0 [id number] Summary Purpose eClinicalWorks Submission
--- OUTSIDE RECORDS SUMMARY | 2019-05-07 14:41 | XMS REPORT ---
[...] End Status Dosage System Date Date Coreg [facility] 68914894417 25 mg Orally Active 1 tablet Twice daily Klor-Con [address] [facility] 88311104940 10 MEQ Orally Active 1 tablet Twice a day with food Iron [facility] 91593212733 325 (65 Fe) MG Active 1 tablet Orally Once a day Telmisartan [facility] 97117305576 80 MG Orally Active 1 tablet Once a day Doxazosin [facility] 38220673816 1 MG Orally Gabby Active 1 tablet in Mesylate Once a day 2017 evening for high blood pressure GlipiZIDE [facility] 99475730483 5 MG Orally Active 1 tablet Once a day Metformin HCl [facility] 56313381503 1000 MG Orally Active 1 tablet Twice daily with a meal Vitamin D-[address] [facility] 57465795074 1000 UNIT Active 2 capsules Orally Once a day Amlodipine [facility] 05384065492 10 MG Orally Active 1 tablet Besylate Once a day Results No Known Results Summary Purpose eClinicalWorks Submission
--- OUTSIDE RECORDS SUMMARY | 2019-05-07 14:42 | XMS REPORT ---
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
--- OUTSIDE RECORDS SUMMARY | 2019-05-07 14:42 | XMS REPORT ---
:1945 Author Organization eClinicalWorks Care Team Providers Name Role Phone Fatou Adan Provider Role Unavailable Allergies, Adverse Reactions, Alerts Substance Reaction Event Type N.K.D.A. 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 Medications Medication Code Code Instructions Start End Status Dosage System Date Date One Touch test NDC 0 test strips Dec 28, Active one strip strips finger prick 2018 once daily Doxazosin ND 98868849280 1 MG Orally Aug 28, Active 1 tablet in Mesylate Once a day 2017 evening GlipiZIDE [facility] 45034816032 5 MG Orally Active 1 tablet Once a day Vitamin D-3 ND 25827383276 1000 UNIT Active 2 capsules Orally Once a day Telmisartan ND 06365934706 80 MG Orally Active 1 tablet Once a day ProAir HFA [facility] 68439600821 108 (90 Base) Active 2 puffs as MCG/ACT needed for Inhalation SOB/wheezin every 4-6 hrs ig Ventolin HFA ND 58399228291 108 (90 Base) Nov 24, Active 2 puffs as MCG/ACT 2018 needed for Inhalation sob/wheezin every 4-6 hrs g Iron [facility] 51899759596 325 (65 Fe) MG Active 1 tablet Orally Once a day Metformin HCl ND 55420620207 1000 MG Orally Active 1 tablet Twice daily with a meal Klor-Con 10 [facility] 00638805319 10 MEQ Orally Active 1 tablet Twice a day with food Doxazosin ND 39060588595 2 MG Orally February Active 1 tablet in Mesylate Once a day 2017 evening for high blood pressure Coreg ND 99284440907 25 mg Orally Active 1 tablet Twice daily Amlodipine [facility] 73175384698 10 MG Orally Active 1 tablet Besylate Once a day Results No Known Results Summary Purpose eClinicalWorks Submission
--- OUTSIDE RECORDS SUMMARY | 2019-05-07 14:42 | XMS REPORT ---
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
--- OUTSIDE RECORDS SUMMARY | 2019-05-07 14:42 | XMS REPORT ---
[...] End Status Dosage System Date Date Amlodipine [facility] 67622906919 10 MG Orally Active 1 tablet Besylate Once a day Doxazosin [facility] 12670595895 1 MG Orally Gabby Active 1 tablet in Mesylate Once a day 2017 evening for high blood pressure Klor-Con [address] [facility] 34248914341 10 MEQ Orally Active 1 tablet Twice a day with food Coreg [facility] 25563876731 25 mg Orally Active 1 tablet Twice daily Telmisartan [facility] 68733961166 80 MG Orally Active 1 tablet Once a day Vitamin D-[address] [facility] 61742074860 1000 UNIT Active 2 capsules Orally Once a day GlipiZIDE [facility] 08593911446 5 MG Orally Active 1 tablet Once a day Iron [facility] 20110106183 325 (65 Fe) MG Active 1 tablet Orally Once a day Metformin HCl [facility] 45624955777 1000 MG Orally Active 1 tablet Twice daily with a meal Results Name Result Date Reference Range Unit Abnormality Flag URINALYSIS AUTO W/O SCOPE ([id number]) ----NIT neg [id number] ----URO 0.2 [id number] ----PROTEIN neg [id number] ----pH 6.0 20180706 ----BLO neg [id number] ----GLUCOSE neg [id number] ----DEDE neg [id number] ----BILIRUBIN neg [id number] ----KETONES neg [id number] ----SPECIFIC GRAVITY 1.010 [id number] Summary Purpose eClinicalWorks Submission
--- OUTSIDE RECORDS SUMMARY | 2019-05-07 14:42 | XMS REPORT ---
:1945 Author Organization eClinicalWorks Care Team Providers Name Role Phone Dominic Garcia Provider Role Unavailable Allergies, Adverse Reactions, Alerts Substance Reaction Event Type N.K.D.A. Info Not Available Non Drug Allergy Problems Problem Type Condition Code Onset Dates Condition Status Assessment External hemorrhoid K64.4 Active Problem Controlled type 2 diabetes mellitus E11.9 Active without complication, without long-term current use of insulin Problem Hypertension, unspecified type I10 Active Problem Bleeding external hemorrhoids K64.4 Active Assessment Grade I hemorrhoids K64.0 Active Problem Shortness of breath R06.02 Active Problem Enlarged heart I51.7 Active Medications Medication Code Code Instructions Start End Status Dosage System Date Date ProAir HFA [facility] 48058364793 108 (90 Base) Active 2 puffs as MCG/ACT needed for Inhalation SOB/wheezin every 4-6 hrs ig One Touch test ND 0 test strips Dec 28, Active one strip strips finger prick 2018 once daily Vitamin D-3 [facility] 74355251837 1000 UNIT Active 2 capsules Orally Once a day Iron [facility] 99735972181 325 (65 Fe) MG Active 1 tablet Orally Once a day GlipiZIDE [facility] 02662587612 5 MG Orally Active 1 tablet Once a day Amlodipine [facility] 99843603592 10 MG Orally Active 1 tablet Besylate Once a day Coreg ND 02764817188 25 mg Orally Active 1 tablet Twice daily Doxazosin [facility] 36613162536 1 MG Orally Aug 28, Active 1 tablet in Mesylate Once a day 2017 evening Ventolin HFA [facility] 16322212943 108 (90 Base) Nov 24, Active 2 puffs as MCG/ACT 2018 needed for Inhalation sob/wheezin every 4-6 hrs g Klor-Con 10 [facility] 21532736470 10 MEQ Orally Active 1 tablet Twice a day with food Doxazosin [facility] 80068604692 2 MG Orally February Active 1 tablet in Mesylate Once a day 2017 evening for high blood pressure Metformin HCl ND 88910219790 1000 MG Orally Active 1 tablet Twice daily with a meal Telmisartan [facility] 46940000737 80 MG Orally Active 1 tablet Once a day Results No Known Results Summary Purpose eClinicalWorks Submission
--- OUTSIDE RECORDS SUMMARY | 2019-05-07 14:42 | XMS REPORT ---
:1945 Author Organization eClinicalWorks Care Team Providers Name Role Phone D'HanisMounacy Provider Role Unavailable Allergies, Adverse Reactions, Alerts Substance Reaction Event Type N.K.D.A. Info Not Available Non Drug Allergy Problems Problem Type Condition Code Onset Dates Condition Status Problem Hypertension, unspecified type I10 Active Problem Shortness of breath R06.02 Active Problem Controlled type 2 diabetes mellitus E11.9 Active without complication, without long-term current use of insulin Assessment Hematuria, unspecified type R31.9 Active Problem Enlarged heart I51.7 Active Medications Medication Code Code Instructions Start End Status Dosage System Date Date Doxazosin [facility] 21086453209 2 MG Orally February Active 1 tablet in Mesylate Once a day 2017 evening for high blood pressure GlipiZIDE [facility] 38682965776 5 MG Orally Active 1 tablet Once a day One Touch test ND 0 test strips Dec 28, Active one strip strips finger prick 2018 once daily Doxazosin ND 02233164624 1 MG Orally Aug 28, Active 1 tablet in Mesylate Once a day 2017 evening Vitamin D-[address] [facility] 71514886093 1000 UNIT Active 2 capsules Orally Once a day Coreg [facility] 11852194927 25 mg Orally Active 1 tablet Twice daily Telmisartan [facility] 62285927420 80 MG Orally Active 1 tablet Once a day ProAir HFA [facility] 29811611551 108 (90 Base) Active 2 puffs as MCG/ACT needed for Inhalation SOB/wheezin every 4-6 hrs ig Amlodipine ND 59065864981 10 MG Orally Active 1 tablet Besylate Once a day Ventolin HFA [facility] 17119866507 108 (90 Base) Nov 24, Active 2 puffs as MCG/ACT 2019 needed for Inhalation sob/wheezin every 4-6 hrs g Iron [facility] 06673914839 325 (65 Fe) MG Active 1 tablet Orally Once a day Klor-Con [address] [facility] 17625768559 10 MEQ Orally Active 1 tablet Twice a day with food Metformin HCl ND 97310314056 1000 MG Orally Active 1 tablet Twice daily with a meal Results Name Result Date Reference Range Unit Abnormality Flag URINALYSIS AUTO W/O SCOPE (82472) ----NIT neg 20190104 ----URO 0.2 20190104 ----PROTEIN neg 20190104 ----pH 6.0 20190104 ----BLO neg 20190104 ----GLUCOSE neg 20190104 ----DEDE tr 20190104 ----BILIRUBIN neg 20190104 ----KETONES neg 20190104 ----SPECIFIC GRAVITY <=1.005 20190104 Summary Purpose eClinicalWorks Submission
--- OUTSIDE RECORDS SUMMARY | 2019-05-07 14:42 | XMS REPORT ---
[...] without long-term current use of insulin Assessment Encounter for general adult medical Z00.00 Active examination without abnormal findings Assessment Need for pneumococcal vaccination Z23 Active Problem Enlarged heart I51.7 Active Medications Medication Code Code Instructions Start End Status Dosage System Date Date GlipiZIDE [facility] 56681790606 5 MG Orally Active 1 tablet Once a day Metformin HCl [facility] 09384605064 1000 MG Orally Active 1 tablet Twice daily with a meal Iron [facility] 56287797754 325 (65 Fe) MG Active 1 tablet Orally Once a day ProAir HFA [facility] [address]-96 108 (90 Base) Active 2 puffs as MCG/ACT needed for Inhalation SOB/wheezin every 4-6 hrs ig Ventolin HFA [facility] 59146846246 108 (90 Base) Nov 24, Active 2 puffs as MCG/ACT 2019 needed for Inhalation sob/wheezin every 4-6 hrs g Coreg [facility] 64348199898 25 mg Orally Active 1 tablet Twice daily Doxazosin [facility] 70777332860 2 MG Orally February Active 1 tablet in Mesylate Once a day 2017 evening for high blood pressure Amlodipine ND 02659419184 10 MG Orally Active 1 tablet Besylate Once a day Klor-Con 10 [facility] 55337301537 10 MEQ Orally Active 1 tablet Twice a day with food Vitamin D-3 [facility] 88812841383 1000 UNIT Active 2 capsules Orally Once a day Doxazosin ND 05275942381 1 MG Orally Aug 28, Active 1 tablet in Mesylate Once a day 2017 evening Augmentin [facility] 36894274070 500-125 MG Nov 24, Dec 04, Active 1 tablet Orally every 2018 2019 hrs Telmisartan [facility] 11727091855 80 MG Orally Active 1 tablet Once a day Results No Known Results Immunizations Vaccine Administration Date Pneumovax Dec 01, 2018 Summary Purpose eClinicalWorks Submission
--- OUTSIDE RECORDS SUMMARY | 2019-05-07 14:42 | XMS REPORT ---
:1945 Author Organization eClinicalWorks Care Team Providers Name Role Phone Fatou Adan Provider Role Unavailable Allergies, Adverse Reactions, Alerts Substance Reaction Event Type N.K.D.A. Info Not Available Non Drug Allergy Problems Problem Type Condition Code Onset Dates Condition Status Assessment Controlled type 2 diabetes mellitus E11.9 Active without complication, without long-term current use of insulin Assessment Respiratory symptoms R09.89 Active Assessment Hypertension, unspecified type I10 Active Problem Hypertension, unspecified type I10 Active Problem Shortness of breath R06.02 Active Problem Controlled type 2 diabetes mellitus E11.9 Active without complication, without long-term current use of insulin Assessment Cough, persistent R05 Active Assessment URI, acute J06.9 Active Problem Enlarged heart I51.7 Active Medications Medication Code Code Instructions Start End Status Dosage System Date Date Ventolin HFA [facility] 03450421282 108 (90 Base) Nov 24, Active 2 puffs as MCG/ACT 2019 needed for Inhalation sob/wheezin every 4-6 hrs g Metformin HCl [facility] 84539468790 1000 MG Orally Active 1 tablet Twice daily with a meal Doxazosin [facility] 29264043733 2 MG Orally February Active 1 tablet in Mesylate Once a day 2017 evening for high blood pressure Telmisartan [facility] 45661830765 80 MG Orally Active 1 tablet Once a day Vitamin D-3 [facility] 02638500747 1000 UNIT Active 2 capsules Orally Once a day Klor-Con 10 [facility] 77739310339 10 MEQ Orally Active 1 tablet Twice a day with food Iron [facility] 79310919984 325 (65 Fe) MG Active 1 tablet Orally Once a day Amlodipine [facility] 72651664665 10 MG Orally Active 1 tablet Besylate Once a day Augmentin [facility] 36782873573 500-125 MG Nov 24, Dec 04, Active 1 tablet Orally every 2018 2019 hrs Coreg [facility] 25753534539 25 mg Orally Active 1 tablet Twice daily Doxazosin [facility] 14524066234 1 MG Orally Aug 28, Active 1 tablet in Mesylate Once a day 2018 evening GlipiZIDE [facility] 51723335216 5 MG Orally Active 1 tablet Once a day Results Name Result Date Reference Range Unit Abnormality Flag COMPREHENSIVE METABOLIC PANEL(CMP) ----ALBUMIN/GLOBULI 1.6 [id number] 1.0-2.5 (calc) N N RATIO ----GLOBULIN 2.5 89062041 1.9-3.7 g/dL N (calc) ----ALKALINE 58 20181125 33-130 U/L N PHOSPHATASE ----BILIRUBIN, 0.6 [id number] 0.2-1.2 mg/dL N TOTAL ----CHLORIDE 100 20181125 98-110 mmol/L N ----ALT 10 20181125 6-29 U/L N ----POTASSIUM 4.5 63416916 3.5-5.3 mmol/L N ----AST 12 20181125 10-35 U/L N ----SODIUM 136 20181125 135-146 mmol/L N ----BUN/CREATININE NOT APPLICABLE 07337543 6-22 (calc) RATIO ----eGFR 99 20181125 > OR=60 mL/min/1.7 [place] [address] ----CALCIUM 9.2 44148831 8.6-10.4 mg/dL N ----CARBON DIOXIDE 29 20181125 20-32 mmol/L N ----ALBUMIN 4.0 71293887 3.6-5.1 g/dL N ----PROTEIN, TOTAL 6.5 20181125 6.1-8.1 g/dL N ----GLUCOSE 148 32477466 65-99 mg/dL H ----UREA NITROGEN 14 20181125 7-25 mg/dL N (BUN) ----CREATININE 0.70 20181125 0.60-0.93 mg/dL N ----eGFR NON-AFR. 85 83043028 > OR=60 mL/min/1.7 [place] [address] LIPID PANEL ----NON HDL 92 05234984 <130 mg/dL N CHOLESTEROL (calc) ----LDL-CHOLESTEROL 74 98733313 mg/dL N (calc) ----CHOL/HDLC RATIO 2.5 [id number] <5.0 (calc) N ----HDL CHOLESTEROL 63 20181125 >50 mg/dL N ----TRIGLYCERIDES 99 20181125 <150 mg/dL N ----CHOLESTEROL, 155 20181125 <200 mg/dL N TOTAL Summary Purpose eClinicalWorks Submission
--- OUTSIDE RECORDS SUMMARY | 2019-05-07 14:43 | XMS REPORT ---
:1945 Author Organization eClinicalWorks Care Team Providers Name Role Phone Fatou Adan Provider Role Unavailable Allergies, Adverse Reactions, Alerts Substance Reaction Event Type N.K.D.A. Info Not Available Non Drug Allergy Problems Problem Type Condition Code Onset Dates Condition Status Assessment Controlled type 2 diabetes mellitus E11.9 Active without complication, without long-term current use of insulin Assessment Essential hypertension I10 Active Assessment External hemorrhoids K64.4 Active Problem External hemorrhoids K64.4 Active Problem Essential hypertension I10 Active Problem Bleeding external hemorrhoids K64.4 Active Problem Shortness of breath R06.02 Active Problem Enlarged heart I51.7 Active Problem Controlled type 2 diabetes mellitus E11.9 Active without complication, without long-term current use of insulin Problem Hypertension, unspecified type I10 Active Medications Medication Code Code Instructions Start End Status Dosage System Date Date Iron [facility] 77718438242 325 (65 Fe) MG Active 1 tablet Orally Once a day Vitamin D-3 [facility] 19000351259 1000 UNIT Active 2 capsules Orally Once a day GlipiZIDE [facility] 05482521653 5 MG Orally Active 1 tablet Once a day Doxazosin [facility] 57335534789 2 MG Orally February Active 1 tablet in Mesylate Once a day 2017 evening for high blood pressure One Touch test NDC 0 test strips Dec 28, Active one strip strips finger prick 2018 once daily Doxazosin [facility] 06298860307 1 MG Orally Aug 28, Active 1 tablet in Mesylate Once a day 2017 evening Klor-Con 10 [facility] 17427145860 10 MEQ Orally Active 1 tablet Twice a day with food Coreg ND 52753742375 25 mg Orally Active 1 tablet Twice daily Telmisartan [facility] 27367962264 80 MG Orally Active 1 tablet Once a day Metformin HCl ND 86608615654 1000 MG Orally Active 1 tablet Twice daily with a meal Ventolin HFA [facility] 44598320470 108 (90 Base) Nov 24, Active 2 puffs as MCG/ACT 2019 needed for Inhalation sob/wheezin every 4-6 hrs g ProAir HFA [facility] 90657336820 108 (90 Base) Active 2 puffs as MCG/ACT needed for Inhalation SOB/wheezin every 4-6 hrs ig Amlodipine [facility] 05067487979 10 MG Orally Active 1 tablet Besylate Once a day Results No Known Results Summary Purpose eClinicalWorks Submission
--- OUTSIDE RECORDS SUMMARY | 2019-05-07 14:43 | XMS REPORT ---
:1945 Author Organization eClinicalWorks Care Team Providers Name Role Phone Fatou Adan Provider Role Unavailable Allergies, Adverse Reactions, Alerts Substance Reaction Event Type N.K.D.A. Info Not Available Non Drug Allergy Problems Problem Type Condition Code Onset Dates Condition Status Assessment URI, acute J06.9 Active Problem Enlarged heart I51.7 Active Assessment Essential hypertension I10 Active Assessment Respiratory symptoms R09.89 Active Assessment Acute pharyngitis, unspecified J02.9 Active etiology Assessment Depression screening Z13.31 Active Problem Bleeding external hemorrhoids K64.4 Active Problem External hemorrhoids K64.4 Active Problem Depression screening Z13.31 Active Problem Hypertension, unspecified type I10 Active Problem Shortness of breath R06.02 Active Problem Essential hypertension I10 Active Problem Controlled type 2 diabetes mellitus E11.9 Active without complication, without long-term current use of insulin Medications Medication Code Code Instructions Start End Status Dosage System Date Date Vitamin D-3 [facility] 26134133963 1000 UNIT Active 2 capsules Orally Once a day Iron [facility] 29713074560 325 (65 Fe) MG Active 1 tablet Orally Once a day Telmisartan [facility] 68065952809 80 MG Orally Active 1 tablet Once a day One Touch test ND 0 test strips Dec 28, Active one strip strips finger prick 2018 once daily GlipiZIDE [facility] 61613619702 5 MG Orally Active 1 tablet Once a day Doxazosin ND 09508639556 1 MG Orally Aug 28, Active 1 tablet in Mesylate Once a day 2017 evening Klor-Con 10 [facility] 24748315324 10 MEQ Orally Active 1 tablet Twice a day with food Amlodipine [facility] 97884454576 10 MG Orally Active 1 tablet Besylate Once a day Tessalon [place] ND 79153733241 100 MG Orally May 04May Active 1 capsule Three times a 2019 05, as needed day 2018 for cough Doxazosin ND 28251138007 2 MG Orally February Active 1 tablet in Mesylate Once a day 2017 evening for high blood pressure ProAir HFA [facility] 25285851704 108 (90 Base) Active 2 puffs as MCG/ACT needed for Inhalation SOB/wheezin every 4-6 hrs ig Metformin HCl [facility] 76387503586 1000 MG Orally Active 1 tablet Twice daily with a meal Ventolin HFA [facility] 06587634799 108 (90 Base) Nov 24, Active 2 puffs as MCG/ACT 2019 needed for Inhalation sob/wheezin every 4-6 hrs g Augmentin [facility] 78177934485 500-125 MG May 04May Active 1 tablet Orally every 2018 05, hrs 2019 Coreg [facility] 84474598394 25 mg Orally Active 1 tablet Twice daily Results Name Result Date Reference Range Unit Abnormality Flag STREP A RAPID ----Result Negative [id number] Summary Purpose eClinicalWorks Submission
--- NOTE | 2019-05-07 16:22 | ER ---
Nurse's Notes [facility] Name: Jesi Lee Age: 73 yrs Sex: Female : 1945 Arrival Date: 05/07/2019 Time: 14:39 Bed 15 Private MD: Diagnosis: Pain in right knee Presentation: 05/07 15:02 Presenting complaint: Patient states: pain behind R knee that began 2 hours ago after ss almost falling. Transition of care: patient was not received from another setting of care. Onset of symptoms was May 07, 2019. Risk Assessment: Do you want to hurt yourself or someone else? Patient reports no desire to harm self or others. Initial Sepsis Screen: Does the patient meet any 2 criteria? No. Patient's initial sepsis screen is negative. Does the patient have a suspected source of infection? No. Patient's initial sepsis screen is negative. Care prior to arrival: None. 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 - Social history:: Smoking status: Patient/guardian denies using tobacco. - Ebola Screening: : Patient denies exposure to infectious person Patient denies travel to an Ebola-affected area in the 21 days before illness onset. Screenin:23 Abuse screen: Denies threats or abuse. Denies injuries from another. Nutritional aj1 screening: No deficits noted. Tuberculosis screening: No symptoms or risk factors identified. 16:54 Fall Risk None identified. aj1 Assessment: 15:23 General: Appears in no apparent distress. uncomfortable, Behavior is calm, cooperative, aj1 appropriate for age. Pain: Complains of pain in right knee. Neuro: Level of Consciousness is awake, alert, obeys commands. Cardiovascular: Patient's skin is warm and dry. Respiratory: Airway is patent Respiratory effort is even, unlabored, Respiratory pattern is regular, symmetrical. GI: No signs and/or symptoms were reported involving the gastrointestinal system. : No signs and/or symptoms were reported regarding the genitourinary system. EENT: No signs and/or symptoms were reported regarding the EENT system. Derm: No signs and/or symptoms reported regarding the dermatologic system. Skin is pink, warm \T\ dry. normal. Musculoskeletal: Range of motion: limited in right knee. 16:36 Reassessment: Patient appears in no apparent distress at this time. No changes from aj1 previously documented assessment. Patient and/or family updated on plan of care and expected duration. Pain level reassessed. Patient is alert, oriented x 3, equal unlabored respirations, skin warm/dry/pink. Vital Signs: 15:03 BP 157 / 67; Pulse 70; Resp 17; Temp 98.1(TE); Pulse Ox 98% on R/A; Weight 59.42 kg; ss Height 5 ft. 1 in. (154.94 cm); Pain 5/10; 15:03 Body Mass Index 24.75 (59.42 kg, 154.94 cm) ED Course: 14:39 Patient arrived in ED. rg4 15:02 Triage completed. ss 15:03 Arm band placed on right wrist. ss 15:06 aJce Gray NP is PHCP. pm1 15:06 Norberto Ramesh MD is Attending Physician. pm1 15:23 Liliam Gilbert, RN is Primary Nurse. aj1 15:23 Patient has correct armband on for positive identification. Bed in low position. Call aj1 light in reach. Side rails up X 1. 15:23 No provider procedures requiring assistance completed. aj1 15:47 X-ray completed. Portable x-ray completed in exam room. Patient tolerated procedure ml well. 15:48 Knee Right 3 View XRAY In Process Unspecified. EDMS 16:55 Patient did not have IV access during this emergency room visit. aj1 Administered Medications: 16:54 Drug: traMADol 50 mg Route: PO; aj1 16:54 Follow up: Response: No adverse reaction aj1 Outcome: 16:21 Discharge ordered by . pm1 16:55 Discharged to home ambulatory, with family. aj1 16:55 Condition: good 16:55 Discharge instructions given to patient, family, Instructed on discharge instructions, follow up and referral plans. medication usage, Demonstrated understanding of instructions, follow-up care, medications, Prescriptions given X 1. 16:55 Patient left the ED. aj1 Signatures: Dispatcher [facility] Liliam Gilbert, RN RN aj1 Samantha Mendoza Shelby, RN RN ss Jace Gray, MANAGER GOLF MANAGER GOLF pm1 Laly Singh 4
--- NOTE | 2019-05-07 16:22 | EDPHYS ---
Physician Documentation [facility] Name: Jesi Lee Age: 73 yrs Sex: Female : 1945 Arrival Date: 05/07/2019 Time: 14:39 Bed 15 Private MD: ED Physician Norberto Ramesh HPI: 05/07 16:19 This 73 yrs old Female presents to ER via Ambulatory with complaints of Right pm1 Knee Pain. 16:19 The patient presents with pain, that is acute. The complaints affect the posterior pm1 aspect of right knee. Context: The problem was sustained at home, resulted from almost falling, the patient can fully bear weight, the patient is able to ambulate, Problem is a result from a previous injury: No. Onset: The symptoms/episode began/occurred 2 hour prior to arrival. Modifying factors: The symptoms are alleviated by nothing. the symptoms are aggravated by movement. Associated signs and symptoms: Pertinent negatives calf tenderness, numbness, swelling, tingling. Treatment prior to arrival includes: no previous treatment. The patient has not experienced similar symptoms in the past. 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 - Social history:: Smoking status: Patient/guardian denies using tobacco. - Ebola Screening: : Patient denies exposure to infectious person Patient denies travel to an Ebola-affected area in the 21 days before illness onset. ROS: 16:19 Constitutional: Negative for fever, chills, and weight loss, Eyes: Negative for injury, pm1 pain, redness, and discharge, ENT: Negative for injury, pain, and discharge, Neck: Negative for injury, pain, and swelling, Cardiovascular: Negative for chest pain, palpitations, and edema, Respiratory: Negative for shortness of breath, cough, wheezing, and pleuritic chest pain, Abdomen/GI: Negative for abdominal pain, nausea, vomiting, diarrhea, and constipation, Back: Negative for injury and pain, : Negative for injury, bleeding, discharge, and swelling. 16:19 Skin: Negative for injury, rash, and discoloration, Neuro: Negative for headache, weakness, numbness, tingling, and seizure. 16:19 MS/extremity: Positive for pain, of the posterior aspect of right knee, Negative for decreased range of motion, deformity. Exam: 16:19 Constitutional: This is a well developed, well nourished patient who is awake, alert, pm1 and in no acute distress. Head/Face: Normocephalic, atraumatic. Neck: Trachea midline, no thyromegaly or masses palpated, and no cervical lymphadenopathy. Supple, full range of motion without nuchal rigidity, or vertebral point tenderness. No Meningismus. Chest/axilla: Normal chest wall appearance and motion. Nontender with no deformity. No lesions are appreciated. Cardiovascular: Regular rate and rhythm with a normal S1 and S2. No gallops, murmurs, or rubs. Normal PMI, no JVD. No pulse deficits. Respiratory: Lungs have equal breath sounds bilaterally, clear to auscultation and percussion. No rales, rhonchi or wheezes noted. No increased work of breathing, no retractions or nasal flaring. Abdomen/GI: Soft, non-tender, with normal bowel sounds. No distension or tympany. No guarding or rebound. No evidence of tenderness throughout. Back: No spinal tenderness. No costovertebral tenderness. Full range of motion. Skin: Warm, dry with normal turgor. Normal color with no rashes, no lesions, and no evidence of cellulitis. 16:19 Musculoskeletal/extremity: Extremities: all appear grossly normal, with no appreciated pain with palpation, ROM: intact in all extremities, Circulation is intact in all extremities. Sensation intact. DVT Exam: No signs of deep vein thrombosis. negative drawer test, valgus and varus stress test, Sully, Johnathon test. 16:19 Neuro: Orientation: is normal, Motor: is normal, moves all fours, strength is normal, strength is 5/5 in all extremities. Vital Signs: 15:03 BP 157 / 67; Pulse 70; Resp 17; Temp 98.1(TE); Pulse Ox 98% on R/A; Weight 59.42 kg; ss Height 5 ft. 1 in. (154.94 cm); Pain 5/10; 15:03 Body Mass Index 24.75 (59.42 kg, 154.94 cm) ss MDM: 15:08 Patient medically screened. pm1 15:57 Data reviewed: vital signs. Data interpreted: Pulse oximetry: on room air is 98 %. pm1 Interpretation: normal. 16:19 Counseling: I had a detailed discussion with the patient and/or guardian regarding: the pm1 historical points, exam findings, and any diagnostic results supporting the discharge/admit diagnosis, radiology results, the need for outpatient follow up, to return to the emergency department if symptoms worsen or persist or if there are any questions or concerns that arise at home. 16:27 ED course: would prefer to apply knee immobilizer on patient and give crutches but due pm1 to age and fall risk with negative knee maneuvers examination, I will order celio wrap on patient . 05/07 15:15 Order name: Knee Right 3 View XRAY; Complete Time: 16:40 pm1 05/07 16:27 Order name: Celio Wrap; Complete Time: 16:54 pm1 Administered Medications: 16:54 Drug: traMADol 50 mg Route: PO; aj1 16:54 Follow up: Response: No adverse reaction aj1 Disposition: 17:03 Co-signature as Attending Physician, Norberto Ramesh MD. Disposition: 05/07/19 16:21 Discharged to Home. Impression: Pain in right knee. - Condition is Stable. - Discharge Instructions: Joint Pain, Knee Pain. - Prescriptions for Tramadol 50 mg Oral Tablet - take 1 tablet by ORAL route every 8 hours as needed; 12 tablet. - Medication Reconciliation Form, Thank You Letter, Antibiotic Education, Prescription Opioid Use form. - Follow up: Emergency Department; When: As needed; Reason: Worsening of condition. Follow up: Private Physician; When: 2 - 3 days; Reason: Recheck today's complaints, Continuance of care, Re-evaluation by your physician. - Problem is new. - Symptoms have improved. Signatures: Dispatcher [employer] EDLiliam Esquivel RN RN aj1 China Grady RN RN ss Marinas, Patrick, ORE WASHER ORE WASHER pm1 Norberto Ramesh MD MD Corrections: (The following items were deleted from the chart) 16:55 16:21 05/07/2019 16:21 Discharged to Home. Impression: Pain in right knee. Condition is aj1 Stable. Forms are Medication Reconciliation Form, Thank You Letter, Antibiotic Education, Prescription Opioid Use. Follow up: Emergency Department; When: As needed; Reason: Worsening of condition. Follow up: Private Physician; When: 2 - 3 days; Reason: Recheck today's complaints, Continuance of care, Re-evaluation by your physician. Problem is new. Symptoms have improved. pm1
--- NOTE | 2019-05-07 16:28 | RAD REPORT ---
EXAM DESCRIPTION: RAD - Knee Right 3 View - 05/07/2019 3:47 pm CLINICAL HISTORY: Knee trauma, knee pain COMPARISON: None. FINDINGS: No fracture, dislocation or periosteal reaction.Small joint effusion is evident. There is spurring at the quadriceps attachment to the patella and minimal spurring along the superior margin o f the patella. No joint space narrowing. No foreign body or other soft tissue abnormality. IMPRESSION: Mild knee joint degenerative change and small joint effusion. No acute bone finding. Clinical concerns for internal derangement or occult bony injury could be further assessed with MR im aging.
[2019-05-07] MEDS ORDERED: TRAMADOL HCL 50 MG TAB ONE (17:04)
[2019-05-07 18:18] VITALS: BP 157/67; TEMP 98.1; O2SAT 98
== END 2019-05-07 16:55 | disposition home or self-care (01) ==
LOC: ER 14:37
DX: M25.561 Pain in right knee (principal); I10 Essential (primary) hypertension; Z88.1 Allergy status to other antibiotic agents
CPT/HCPCS: 99283

== ENCOUNTER 2019-05-10 10:37 | Emergency (ER) | payer OTHER ==
--- OUTSIDE RECORDS SUMMARY | 2019-05-10 10:39 | XMS REPORT ---
[...] End Status Dosage System Date Date Telmisartan [facility] 05746884631 80 MG Orally Active 1 tablet Once a day GlipiZIDE [facility] 46827230817 5 MG Orally Active 1 tablet Once a day Doxazosin [facility] 56035064498 1 MG Orally Gabby Active 1 tablet in Mesylate Once a day 2017 evening for high blood pressure Coreg [facility] 28622284495 25 mg Orally Active 1 tablet Twice daily Amlodipine [facility] 40534611099 10 MG Orally Active 1 tablet Besylate Once a day Klor-Con 10 [facility] 98648239501 10 MEQ Orally Active 1 tablet Twice a day with food Iron [facility] 73315504414 325 (65 Fe) MG Active 1 tablet Orally Once a day Vitamin D-3 [facility] 64101201296 1000 UNIT Active 2 capsules Orally Once a day Metformin HCl [facility] 10752493277 1000 MG Orally Active 1 tablet Twice daily with a meal Results Name Result Date Reference Range Unit Abnormality Flag URINALYSIS AUTO W/O SCOPE (41289) ----NIT neg [id number] ----URO 0.2 [id number] ----PROTEIN 1+ [id number] ----pH 6.0 20180617 ----BLO neg [id number] ----GLUCOSE neg [id number] ----DEDE neg [id number] ----BILIRUBIN neg [id number] ----KETONES neg [id number] ----SPECIFIC GRAVITY >=1.030 [id number] PVR ----PVR 0 [id number] Summary Purpose eClinicalWorks Submission
--- OUTSIDE RECORDS SUMMARY | 2019-05-10 10:39 | XMS REPORT ---
[...] End Status Dosage System Date Date Amlodipine [facility] 21804480567 10 MG Orally Active 1 tablet Besylate Once a day Doxazosin [facility] 30816203239 1 MG Orally Gabby Active 1 tablet in Mesylate Once a day 2017 evening for high blood pressure Klor-Con 10 [facility] 66827128228 10 MEQ Orally Active 1 tablet Twice a day with food Coreg [facility] 54530391458 25 mg Orally Active 1 tablet Twice daily Telmisartan [facility] 43970062190 80 MG Orally Active 1 tablet Once a day Vitamin D-3 [facility] 41234212006 1000 UNIT Active 2 capsules Orally Once a day GlipiZIDE [facility] 10214393992 5 MG Orally Active 1 tablet Once a day Iron [facility] 44895245471 325 (65 Fe) MG Active 1 tablet Orally Once a day Metformin HCl [facility] 14748839834 1000 MG Orally Active 1 tablet Twice daily with a meal Results Name Result Date Reference Range Unit Abnormality Flag URINALYSIS AUTO W/O SCOPE (36606) ----NIT neg [id number] ----URO 0.2 [id number] ----PROTEIN neg [id number] ----pH 6.0 20180706 ----BLO neg [id number] ----GLUCOSE neg [id number] ----DEDE neg [id number] ----BILIRUBIN neg [id number] ----KETONES neg [id number] ----SPECIFIC GRAVITY 1.010 [id number] Summary Purpose eClinicalWorks Submission
--- OUTSIDE RECORDS SUMMARY | 2019-05-10 10:39 | XMS REPORT ---
:1945 Author Organization eClinicalWorks Care Team Providers Name Role Phone Natalia Ross Provider Role Unavailable Allergies No Known Allergies Problems Problem Type Condition Code Onset Dates Condition Status Problem Diabetes E11.9 Active Problem Hypertension, unspecified type I10 Active Problem Hypertension I10 Active Medications Medication Code System Code Instructions Start Date End Date Status Dosage Cipro [facility] 59895896649 500 MG Orally Jun 22, Jun 27, Active 1 tablet every 12 hrs 2017 2017 Results No Known Results Summary Purpose eClinicalWorks Submission
--- OUTSIDE RECORDS SUMMARY | 2019-05-10 10:39 | XMS REPORT ---
[...] End Status Dosage System Date Date Coreg [facility] 77677696466 25 mg Orally Active 1 tablet Twice daily Klor-Con 10 [facility] 03255095148 10 MEQ Orally Active 1 tablet Twice a day with food Iron [facility] 93504272301 325 (65 Fe) MG Active 1 tablet Orally Once a day Telmisartan [facility] 52811040979 80 MG Orally Active 1 tablet Once a day Doxazosin [facility] 82554592940 1 MG Orally Gabby Active 1 tablet in Mesylate Once a day 2017 evening for high blood pressure GlipiZIDE [facility] 04431741074 5 MG Orally Active 1 tablet Once a day Metformin HCl [facility] 69486989925 1000 MG Orally Active 1 tablet Twice daily with a meal Vitamin D-3 [facility] 74313580103 1000 UNIT Active 2 capsules Orally Once a day Amlodipine [facility] 04456769996 10 MG Orally Active 1 tablet Besylate Once a day Results No Known Results Summary Purpose eClinicalWorks Submission
--- OUTSIDE RECORDS SUMMARY | 2019-05-10 10:40 | XMS REPORT ---
[...] Status Dosage System Date Date Ventolin HFA [facility] 32698618106 108 (90 Base) Nov 24, Active 2 puffs as MCG/ACT 2019 needed for Inhalation sob/wheezin every 4-6 hrs g Metformin HCl [facility] 86394940928 1000 MG Orally Active 1 tablet Twice daily with a meal Doxazosin [facility] 99192250302 2 MG Orally February Active 1 tablet in Mesylate Once a day 2017 evening for high blood pressure Telmisartan [facility] 91041057294 80 MG Orally Active 1 tablet Once a day Vitamin D-3 [facility] 37683725680 1000 UNIT Active 2 capsules Orally Once a day Klor-Con 10 [facility] 11349708163 10 MEQ Orally Active 1 tablet Twice a day with food Iron [facility] 06343706440 325 (65 Fe) MG Active 1 tablet Orally Once a day Amlodipine [facility] 93706345537 10 MG Orally Active 1 tablet Besylate Once a day Augmentin [facility] 57182008421 500-125 MG Nov 24, Dec 04, Active 1 tablet Orally every 2018 2019 hrs Coreg [facility] 26408969759 25 mg Orally Active 1 tablet Twice daily Doxazosin [facility] 11644851974 1 MG Orally Aug 28, Active 1 tablet in Mesylate Once a day 2018 evening GlipiZIDE [facility] 23596736492 5 MG Orally Active 1 tablet Once a day Results Name Result Date Reference Range Unit Abnormality Flag COMPREHENSIVE METABOLIC PANEL(CMP) ----ALBUMIN/GLOBULI 1.6 [id number] 1.0-2.5 (calc) N N RATIO ----GLOBULIN 2.5 03570680 1.9-3.7 g/dL N (calc) ----ALKALINE 58 20181125 33-130 U/L N PHOSPHATASE ----BILIRUBIN, 0.6 96977144 0.2-1.2 mg/dL N TOTAL ----CHLORIDE 100 20181125 98-110 mmol/L N ----ALT 10 20181125 6-29 U/L N ----POTASSIUM 4.5 52498319 3.5-5.3 mmol/L N ----AST 12 20181125 10-35 U/L N ----SODIUM 136 20181125 135-146 mmol/L N ----BUN/CREATININE NOT APPLICABLE 64985048 6-22 (calc) RATIO ----eGFR 99 20181125 > OR=60 mL/min/1.7 [place] [address] ----CALCIUM 9.2 76113330 8.6-10.4 mg/dL N ----CARBON DIOXIDE 29 20181125 20-32 mmol/L N ----ALBUMIN 4.0 13365260 3.6-5.1 g/dL N ----PROTEIN, TOTAL 6.5 20181125 6.1-8.1 g/dL N ----GLUCOSE 148 80910086 65-99 mg/dL H ----UREA NITROGEN 14 20181125 7-25 mg/dL N (BUN) ----CREATININE 0.70 20181125 0.60-0.93 mg/dL N ----eGFR NON-AFR. 85 10156257 > OR=60 mL/min/1.7 [place] [address] LIPID PANEL ----NON HDL 92 26971977 <130 mg/dL N CHOLESTEROL (calc) ----LDL-CHOLESTEROL 74 73838627 mg/dL N (calc) ----CHOL/HDLC RATIO 2.5 20693835 <5.0 (calc) N ----HDL CHOLESTEROL 63 20181125 >50 mg/dL N ----TRIGLYCERIDES 99 20181125 <150 mg/dL N ----CHOLESTEROL, 155 20181125 <200 mg/dL N TOTAL Summary Purpose eClinicalWorks Submission
--- OUTSIDE RECORDS SUMMARY | 2019-05-10 10:40 | XMS REPORT ---
:1945 Author Organization eClinicalWorks Care Team Providers Name Role Phone [place] Provider Role Unavailable Allergies, Adverse Reactions, Alerts [...] End Status Dosage System Date Date Doxazosin [facility][NOTE 3] 13231225455 2 MG Orally February Active 1 tablet in Mesylate Once a day 2017 evening for high blood pressure GlipiZIDE [facility][NOTE 3] 78139509211 5 MG Orally Active 1 tablet Once a day One Touch test ND 0 test strips Dec 28, Active one strip strips finger prick 2018 once daily Doxazosin ND 43877414103 1 MG Orally Aug 28, Active 1 tablet in Mesylate Once a day 2017 evening Vitamin D-3 [facility][NOTE 3] 08841212489 1000 UNIT Active 2 capsules Orally Once a day Coreg [facility][NOTE 3] 26443103604 25 mg Orally Active 1 tablet Twice daily Telmisartan [facility][NOTE 3] 14293175582 80 MG Orally Active 1 tablet Once a day ProAir HFA [facility][NOTE 3] 82249850599 108 (90 Base) Active 2 puffs as MCG/ACT needed for Inhalation SOB/wheezin every 4-6 hrs ig Amlodipine ND 45144792640 10 MG Orally Active 1 tablet Besylate Once a day Ventolin HFA [facility][NOTE 3] 00549566631 108 (90 Base) Nov 24, Active 2 puffs as MCG/ACT 2019 needed for Inhalation sob/wheezin every 4-6 hrs g Iron [facility][NOTE 3] 90667359288 325 (65 Fe) MG Active 1 tablet Orally Once a day Klor-Con 10 [facility][NOTE 3] 98306413614 10 MEQ Orally Active 1 tablet Twice a day with food Metformin HCl ND 72679126469 1000 MG Orally Active 1 tablet Twice daily with a meal Results Name Result Date Reference Range Unit Abnormality Flag URINALYSIS AUTO W/O SCOPE (40387) ----NIT neg [id number] ----URO 0.2 20190104 ----PROTEIN neg 20190104 ----pH 6.0 20190104 ----BLO neg 20190104 ----GLUCOSE neg 20190104 ----DEDE tr 20190104 ----BILIRUBIN neg 20190104 ----KETONES neg 20190104 ----SPECIFIC GRAVITY <=1.005 20190104 Summary Purpose eClinicalWorks Submission
--- OUTSIDE RECORDS SUMMARY | 2019-05-10 10:40 | XMS REPORT ---
[...] Status Dosage System Date Date GlipiZIDE [facility] 92664073212 5 MG Orally Active 1 tablet Once a day Metformin HCl [facility] 79847015045 1000 MG Orally Active 1 tablet Twice daily with a meal Iron [facility] 14145662156 325 (65 Fe) MG Active 1 tablet Orally Once a day ProAir HFA [facility] [address]-94 108 (90 Base) Active 2 puffs as MCG/ACT needed for Inhalation SOB/wheezin every 4-6 hrs ig Ventolin HFA [facility] 61994426468 108 (90 Base) Nov 24, Active 2 puffs as MCG/ACT 2019 needed for Inhalation sob/wheezin every 4-6 hrs g Coreg [facility] 78282970783 25 mg Orally Active 1 tablet Twice daily Doxazosin [facility] 91550469230 2 MG Orally February Active 1 tablet in Mesylate Once a day 2017 evening for high blood pressure Amlodipine ND 26616986105 10 MG Orally Active 1 tablet Besylate Once a day Klor-Con 10 [facility] 74702851362 10 MEQ Orally Active 1 tablet Twice a day with food Vitamin D-3 [facility] 79090777334 1000 UNIT Active 2 capsules Orally Once a day Doxazosin ND 80793011655 1 MG Orally Aug 28, Active 1 tablet in Mesylate Once a day 2017 evening Augmentin [facility] 64541670424 500-125 MG Nov 24, Dec 04, Active 1 tablet Orally every 2018 2019 hrs Telmisartan [facility] 00643580369 80 MG Orally Active 1 tablet Once a day Results No Known Results Immunizations Vaccine Administration Date Pneumovax Dec 01, 2018 Summary Purpose eClinicalWorks Submission
--- OUTSIDE RECORDS SUMMARY | 2019-05-10 10:40 | XMS REPORT ---
[...] Status Dosage System Date Date ProAir HFA [facility] 07551563591 108 (90 Base) Active 2 puffs as MCG/ACT needed for Inhalation SOB/wheezin every 4-6 hrs ig One Touch test ND 0 test strips Dec 28, Active one strip strips finger prick 2018 once daily Vitamin D-[address] [facility] 66051039300 1000 UNIT Active 2 capsules Orally Once a day Iron [facility] 36893371435 325 (65 Fe) MG Active 1 tablet Orally Once a day GlipiZIDE [facility] 66946281202 5 MG Orally Active 1 tablet Once a day Amlodipine [facility] 44636066761 10 MG Orally Active 1 tablet Besylate Once a day Coreg ND 06333446898 25 mg Orally Active 1 tablet Twice daily Doxazosin [facility] 67898208714 1 MG Orally Aug 28, Active 1 tablet in Mesylate Once a day 2017 evening Ventolin HFA [facility] 30511326267 108 (90 Base) Nov 24, Active 2 puffs as MCG/ACT 2018 needed for Inhalation sob/wheezin every 4-6 hrs g Klor-Con [address] [facility] 33547438964 10 MEQ Orally Active 1 tablet Twice a day with food Doxazosin [facility] 17547696959 2 MG Orally February Active 1 tablet in Mesylate Once a day 2017 evening for high blood pressure Metformin HCl ND 54769635273 1000 MG Orally Active 1 tablet Twice daily with a meal Telmisartan [facility] 43837723592 80 MG Orally Active 1 tablet Once a day Results No Known Results Summary Purpose eClinicalWorks Submission
--- OUTSIDE RECORDS SUMMARY | 2019-05-10 10:40 | XMS REPORT ---
[...] finger prick 2018 once daily Doxazosin ND 89282600401 1 MG Orally Aug 28, Active 1 tablet in Mesylate Once a day 2017 evening GlipiZIDE [facility] 39283453664 5 MG Orally Active 1 tablet Once a day Vitamin D-3 ND 28162852663 1000 UNIT Active 2 capsules Orally Once a day Telmisartan ND 35322975463 80 MG Orally Active 1 tablet Once a day ProAir HFA [facility] 22741265608 108 (90 Base) Active 2 puffs as MCG/ACT needed for Inhalation SOB/wheezin every 4-6 hrs ig Ventolin HFA ND 76208070159 108 (90 Base) Nov 24, Active 2 puffs as MCG/ACT 2018 needed for Inhalation sob/wheezin every 4-6 hrs g Iron [facility] 25139874136 325 (65 Fe) MG Active 1 tablet Orally Once a day Metformin HCl ND 77274510322 1000 MG Orally Active 1 tablet Twice daily with a meal Klor-Con 10 [facility] 20663920154 10 MEQ Orally Active 1 tablet Twice a day with food Doxazosin ND 59623935206 2 MG Orally February Active 1 tablet in Mesylate Once a day 2017 evening for high blood pressure Coreg ND 40259511605 25 mg Orally Active 1 tablet Twice daily Amlodipine [facility] 88095520506 10 MG Orally Active 1 tablet Besylate Once a day Results No Known Results Summary Purpose eClinicalWorks Submission
--- OUTSIDE RECORDS SUMMARY | 2019-05-10 10:41 | XMS REPORT ---
[...] End Status Dosage System Date Date Iron [facility] 53156859134 325 (65 Fe) MG Active 1 tablet Orally Once a day Vitamin D-[address] [facility] 23831061414 1000 UNIT Active 2 capsules Orally Once a day GlipiZIDE [facility] 29444630949 5 MG Orally Active 1 tablet Once a day Doxazosin [facility] 91739009443 2 MG Orally February Active 1 tablet in Mesylate Once a day 2017 evening for high blood pressure One Touch test NDC 0 test strips Dec 28, Active one strip strips finger prick 2018 once daily Doxazosin [facility] 60477545851 1 MG Orally Aug 28, Active 1 tablet in Mesylate Once a day 2017 evening Klor-Con [address] [facility] 19290225121 10 MEQ Orally Active 1 tablet Twice a day with food Coreg ND 54396312839 25 mg Orally Active 1 tablet Twice daily Telmisartan [facility] 38657019708 80 MG Orally Active 1 tablet Once a day Metformin HCl ND 67963998325 1000 MG Orally Active 1 tablet Twice daily with a meal Ventolin HFA [facility] 00220218508 108 (90 Base) Nov 24, Active 2 puffs as MCG/ACT 2019 needed for Inhalation sob/wheezin every 4-6 hrs g ProAir HFA [facility] 76044850952 108 (90 Base) Active 2 puffs as MCG/ACT needed for Inhalation SOB/wheezin every 4-6 hrs ig Amlodipine [facility] 95695217946 10 MG Orally Active 1 tablet Besylate Once a day Results No Known Results Summary Purpose eClinicalWorks Submission
--- OUTSIDE RECORDS SUMMARY | 2019-05-10 10:41 | XMS REPORT ---
[...] Status Dosage System Date Date Vitamin D-[address] [facility] 20918893299 1000 UNIT Active 2 capsules Orally Once a day Iron [facility] 36475561732 325 (65 Fe) MG Active 1 tablet Orally Once a day Telmisartan [facility] 55459067421 80 MG Orally Active 1 tablet Once a day One Touch test ND 0 test strips Dec 28, Active one strip strips finger prick 2018 once daily GlipiZIDE [facility] 68193274686 5 MG Orally Active 1 tablet Once a day Doxazosin ND 44719205548 1 MG Orally Aug 28, Active 1 tablet in Mesylate Once a day 2017 evening Klor-Con [address] [facility] 74170247742 10 MEQ Orally Active 1 tablet Twice a day with food Amlodipine [facility] 79640439530 10 MG Orally Active 1 tablet Besylate Once a day Tessalon [place] ND 57561294662 100 MG Orally May 04May Active 1 capsule Three times a 2019 05, as needed day 2018 for cough Doxazosin ND 92832515825 2 MG Orally February Active 1 tablet in Mesylate Once a day 2017 evening for high blood pressure ProAir HFA [facility] 07773134034 108 (90 Base) Active 2 puffs as MCG/ACT needed for Inhalation SOB/wheezin every 4-6 hrs ig Metformin HCl [facility] 12477547613 1000 MG Orally Active 1 tablet Twice daily with a meal Ventolin HFA [facility] 16672284849 108 (90 Base) Nov 24, Active 2 puffs as MCG/ACT 2019 needed for Inhalation sob/wheezin every 4-6 hrs g Augmentin [facility] 26056694156 500-125 MG May 04May Active 1 tablet Orally every 2018 05, hrs [address] [facility] 35593971653 25 mg Orally Active 1 tablet Twice daily Results Name Result Date Reference Range Unit Abnormality Flag STREP A RAPID ----Result Negative [id number] Summary Purpose eClinicalWorks Submission
[2019-05-10 11:49] LABS: Absolute Lymphocytes (CBC) 1.4 K/uL (0.7-4.9); Basophils % 0.8 % (0-1.3); Eosinophils % 0.8 % (0-4.4); Hematocrit 35.1 % (36.0-45.0); Lymphocytes % 12.2 % (15.3-44.8); MPV 7.8 fL (7.6-11.3); Monocytes % 7.9 % (3.3-12.3); RBC Red Blood Cell Count 4.11 M/uL (3.86-4.86)
[2019-05-10] MEDS ORDERED: MORPHINE 4 MG/ML SYR ONE (11:54)
[2019-05-10] MEDS ORDERED: ONDANSETRON 4 MG/2 ML VIAL ONE (11:54)
[2019-05-10 12:03] LABS: ALT/SGPT 29 U/L (12-78); AST/SGOT 21 U/L (15-37); Albumin 3.1 g/dL (3.4-5.0); Alkaline Phosphatase 94 U/L (45-117); BUN Blood Urea Nitrogen 10 mg/dL (7-18); Bicarbonate 28 mmol/L (21-32); Bilirubin Total 0.3 mg/dL (0.2-1.0); Glucose Level 217 mg/dL (74-106); Lipase 94 U/L (73-393); Potassium 3.9 mmol/L (3.5-5.1); Protein, Total 7.2 g/dL (6.4-8.2); Sodium Level 132 mmol/L (136-145); Troponin (Emerg Dept Use Only) < 0.02 ng/mL (0.0-0.045)
--- NOTE | 2019-05-10 12:48 | RAD REPORT ---
EXAM DESCRIPTION: CT - Abdomen Pelvis W Contrast - 05/10/2019 12:35 pm CLINICAL HISTORY: Abdominal pain COMPARISON: May 2018 TECHNIQUE: Computed axial tomography of the abdomen pelvis was obtained. 100 cc Isovue-300 was admin istered intravenously. Oral contrast was not requested which limits evaluation of bowel. All CT scans are performed using dose optimization technique as appropriate and may include automated exposure control or mA/KV adjustment according to patient size. FINDINGS: The liver, spleen, pancreas, adrenal and kidneys appear unremarkable. Diverticula stem from the colon. Mild stranding is present adjacent to the sigmoid colon. No abscess. Minimal free fluid Several small ventral hernias contain fat IMPRESSION: Mild sigmoid diverticulitis
--- NOTE | 2019-05-10 13:05 | EDPHYS ---
Physician Documentation [facility] Name: Jesi Lee Age: 73 yrs Sex: Female : 1945 Arrival Date: 05/10/2019 Time: 10:39 Bed 24 Private MD: Fatou Adan ED Physician Hola Garcia HPI: 05/10 11:08 This 73 yrs old Female presents to ER via Ambulatory with complaints of Abdominal ps1 Pain. 11:08 patient in USOH. 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 Localized to suprapubic region. Associated with diaphoresis. No dysuria, frequency, or other urinary symptoms. No CP. Hx of HTN, NIDDM.. 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 - Ebola Screening: : Patient denies travel to an Ebola-affected area in the 21 days before illness onset. ROS: 11:08 Constitutional: Negative for fever, chills, and weight loss, Eyes: Negative for injury, ps1 pain, redness, and discharge, ENT: Negative for injury, pain, and discharge, Cardiovascular: Negative for chest pain, palpitations, and edema, Respiratory: Negative for shortness of breath, cough, wheezing, and pleuritic chest pain, MS/Extremity: Negative for injury and deformity, Skin: Negative for injury, rash, and discoloration, Neuro: Negative for headache, weakness, numbness, tingling, and seizure. 11:08 Abdomen/GI: Positive for abdominal pain. Exam: 11:08 Constitutional: This is a well developed, well nourished patient who is awake, alert, ps1 and in no acute distress. Head/Face: Normocephalic, atraumatic. Eyes: Pupils equal round and reactive to light, extra-ocular motions intact. Lids and lashes normal. Conjunctiva and sclera are non-icteric and not injected. Chest/axilla: Normal chest wall appearance and motion. Nontender with no deformity. No lesions are appreciated. Cardiovascular: Regular rate and rhythm. No gallops, murmurs, or rubs. Normal PMI, no JVD. No pulse deficits. Respiratory: Lungs have equal breath sounds bilaterally, clear to auscultation and percussion. No rales, rhonchi or wheezes noted. No increased work of breathing, no retractions or nasal flaring. Skin: Warm, dry with normal turgor. Normal color with no rashes, no lesions, and no evidence of cellulitis. MS/ Extremity: Pulses equal, no cyanosis. Neurovascular intact. Full, normal range of motion. Neuro: Awake and alert, GCS 15, oriented to person, place, time, and situation. Cranial nerves II-XII grossly intact. Sensory grossly intact. 11:08 Abdomen/GI: Inspection: abdomen appears normal, Bowel sounds: active, Palpation: abdomen is soft and non-tender, mild abdominal tenderness, in the suprapubic area. Vital Signs: 10:45 BP 101 / 59; Pulse 75; Resp 18; Temp 96.3(O); Pulse Ox 100% on R/A; Weight 61.23 kg; hj Height 5 ft. 1 in. (154.94 cm); Pain 9/10; 11:44 BP 122 / 66; Pulse 72; Resp 18; Pulse Ox 99% ; aj1 12:45 BP 131 / 67; Pulse 72; Resp 18; Pulse Ox 100% on R/A; aj1 13:22 BP 128 / 68 LA (auto/reg); Pulse 74; Temp 98(O); Pulse Ox 99% on R/A; Pain 8/10; jp3 10:45 Body Mass Index 25.51 (61.23 kg, 154.94 cm) MDM: 11:07 Patient medically screened. ps1 05/10 11:07 Order name: CBC with Diff; Complete Time: 12:02 ps1 05/10 11:07 Order name: Lipase; Complete Time: 12:05 ps1 05/10 11:07 Order name: CMP; Complete Time: 12:05 ps1 05/10 11:07 Order name: CT Abd/Pelvis - IV Contrast Only; Complete Time: 13:03 ps1 05/10 11:07 Order name: Troponin (emerg Dept Use Only); Complete Time: 12:05 ps1 05/10 11:07 Order name: IV Saline Lock; Complete Time: 11:36 ps1 05/10 11:07 Order name: Labs collected and sent; Complete Time: 11:37 ps1 05/10 11:07 Order name: EKG - Nurse/Tech; Complete Time: 13:05 ps1 05/10 14:01 Order name: EKG Electrocardiogram EDMS Administered Medications: 11:47 Drug: morphine 4 mg Route: IVP; Site: right forearm; aj1 13:05 Follow up: Response: No adverse reaction; Pain is decreased aj1 11:47 Drug: Zofran 4 mg Route: IVP; Site: right forearm; aj1 13:06 Follow up: Response: No adverse reaction aj1 Point of Care Testing: Blood Glucose: 10:50 Blood Glucose: 217 mg/dL; Ranges: Critical Glucose Levels:Adult <50 mg/dl or >400 mg/dl <40 mg/dl or >180 mg/dl Disposition: 05/10/19 13:04 Discharged to Home. Impression: Diverticulitis. - Condition is Stable. - Discharge Instructions: Diverticulitis. - Prescriptions for Augmentin 875- 125 mg Oral Tablet - take 1 tablet by ORAL route every 12 hours for 10 days; 20 tablet. Tylenol- Codeine #3 300-30 mg Oral Tablet - take 2 tablet by ORAL route every 6 hours As needed; 30 tablet. Zofran 8 mg Oral Tablet - take 1 tablet by ORAL route every 12 hours As needed; 20 tablet. - Medication Reconciliation Form, Thank You Letter, Antibiotic Education, Prescription Opioid Use form. - Follow up: Faotu Adan MD; When: 48 Hours; Reason: Further diagnostic work-up, Recheck today's complaints, Re-evaluation by your physician. Follow up: Emergency Department; When: As needed; Reason: Fever > 102 F, Worsening of condition. - Problem is new. - Symptoms have improved. Signatures: Dispatcher [employer] EDMS Liliam Gilbert RN RN aj1 Azael Anderson RN RN hj Hola Garcia MD MD ps1 Corrections: (The following items were deleted from the chart) 14:05 13:04 05/10/2019 13:04 Discharged to Home. Impression: Diverticulitis. Condition is aj1 Stable. Forms are Medication Reconciliation Form, Thank You Letter, Antibiotic Education, Prescription Opioid Use. Follow up: Fatou Adan; When: 48 Hours; Reason: Further diagnostic work-up, Recheck today's complaints, Re-evaluation by your physician. Follow up: Emergency Department; When: As needed; Reason: Fever > 102 F, Worsening of condition. Problem is new. Symptoms have improved. ps1
--- NOTE | 2019-05-10 13:05 | ER ---
Nurse's Notes [facility] Name: Jesi Lee Age: 73 yrs Sex: Female : 1945 Arrival Date: 05/10/2019 Time: 10:39 Bed 24 Private MD: Fatou Adan Diagnosis: Diverticulitis Presentation: 05/10 10:42 Presenting complaint: Patient states: today i pooped and after that my L lower abd hj started hurting, like cramps, reports loose stools; denies N/V; denies fever and chills; reports sweats;. Transition of care: patient was not received from another setting of care. Onset of symptoms was May 10, 2019. Risk Assessment: Do you want to hurt yourself or someone else? Patient reports no desire to harm self or others. Initial Sepsis Screen: Does the patient meet any 2 criteria? No. Patient's initial sepsis screen is negative. Does the patient have a suspected source of infection? No. Patient's initial sepsis screen is negative. Care prior to arrival: None. 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 - Ebola Screening: : Patient denies travel to an Ebola-affected area in the 21 days before illness onset. Screenin:44 Abuse screen: Denies threats or abuse. Denies injuries from another. Nutritional aj1 screening: No deficits noted. Tuberculosis screening: No symptoms or risk factors identified. 14:02 Fall Risk None identified. aj1 Assessment: 11:44 General: Appears comfortable, Behavior is appropriate for age, restless. Pain: aj1 Complains of pain in suprapubic area and left lower quadrant Pain does not radiate. Pain currently is 10 out of 10 on a pain scale. Pain: Quality of pain is described as crampy. Neuro: Level of Consciousness is awake, alert, obeys commands, Oriented to person, place, time, situation. Cardiovascular: Patient's skin is warm and dry. Respiratory: Airway is patent Respiratory effort is even, unlabored, Respiratory pattern is regular, symmetrical. GI: Abdomen is non-distended, Bowel sounds present X 4 quads. Abd is soft X 4 quads Reports diarrhea, Patient currently denies nausea, vomiting. : No signs and/or symptoms were reported regarding the genitourinary system. Denies burning with urination, urinary frequency. EENT: No signs and/or symptoms were reported regarding the EENT system. Derm: No signs and/or symptoms reported regarding the dermatologic system. Skin is pink, warm \T\ dry. normal. Musculoskeletal: No signs and/or symptoms reported regarding the musculoskeletal system. Circulation, motion, and sensation intact. 12:45 Reassessment: Patient appears in no apparent distress at this time. No changes from aj1 previously documented assessment. Patient and/or family updated on plan of care and expected duration. Pain level reassessed. Patient is alert, oriented x 3, equal unlabored respirations, skin warm/dry/pink. 13:45 Reassessment: Patient appears in no apparent distress at this time. No changes from aj1 previously documented assessment. Patient and/or family updated on plan of care and expected duration. Pain level reassessed. Patient is alert, oriented x 3, equal unlabored respirations, skin warm/dry/pink. Vital Signs: 10:45 BP 101 / 59; Pulse 75; Resp 18; Temp 96.3(O); Pulse Ox 100% on R/A; Weight 61.23 kg; hj Height 5 ft. 1 in. (154.94 cm); Pain 9/10; 11:44 BP 122 / 66; Pulse 72; Resp 18; Pulse Ox 99% ; aj1 12:45 BP 131 / 67; Pulse 72; Resp 18; Pulse Ox 100% on R/A; aj1 13:22 BP 128 / 68 LA (auto/reg); Pulse 74; Temp 98(O); Pulse Ox 99% on R/A; Pain 8/10; jp3 10:45 Body Mass Index 25.51 (61.23 kg, 154.94 cm) ED Course: 10:39 Patient arrived in ED. as 10:39 Fatou Adan MD is Private Physician. as 10:44 Triage completed. hj 10:45 Arm band placed on right wrist. hj 10:57 Hola Garcia MD is Attending Physician. ps1 10:59 Vladimir, Liliam, RN is Primary Nurse. aj1 11:30 Initial lab(s) drawn, by me, sent to lab. Inserted saline lock: 22 gauge in right jp3 forearm, using aseptic technique. Blood collected. 11:39 Bed in low position. Call light in reach. Side rails up X 1. Warm blanket given. Verbal jp3 reassurance given. Pulse ox on. NIBP on. 11:39 Troponin (emerg Dept Use Only) Sent. jp3 11:39 CMP Sent. jp3 11:39 CBC with Diff Sent. jp3 11:39 Lipase Sent. jp3 11:44 No provider procedures requiring assistance completed. aj1 12:35 CT Abd/Pelvis - IV Contrast Only In Process Unspecified. EDMS 13:03 Fatou Adan MD is Referral Physician. ps1 13:14 EKG done, by drinking water technician. reviewed by Hola Garcia MD. at1 13:25 IV discontinued, intact, bleeding controlled, No redness/swelling at site. Pressure jp3 dressing applied. 14:03 IV dc'd as documented above. aj1 Administered Medications: 11:47 Drug: morphine 4 mg Route: IVP; Site: right forearm; aj1 13:05 Follow up: Response: No adverse reaction; Pain is decreased aj1 11:47 Drug: Zofran 4 mg Route: IVP; Site: right forearm; aj1 13:06 Follow up: Response: No adverse reaction aj1 Point of Care Testing: Blood Glucose: 10:50 Blood Glucose: 217 mg/dL; Ranges: Outcome: 13:04 Discharge ordered by . ps1 14:04 Discharged to home ambulatory. aj1 14:04 Condition: good 14:04 Discharge instructions given to patient, family, Instructed on discharge instructions, follow up and referral plans. no drinking with medication, no driving heavy equipment, Demonstrated understanding of instructions, follow-up care, medications, Prescriptions given X 3. 14:05 Patient left the ED. aj1 Signatures: Dispatcher [employer] EDMT Liliam Gilbert, RN RN aj1 Jaylyn Moss Amanda, staff physical therapist EKG Tat1 Azael Anderson RN RN hj Singer, Phillip, MD MD ps1 Enrique Garza jp3
--- NOTE | 2019-05-10 19:42 | EKG ---
Test Date: 2019-05-10 Test Time: 13:07:05 Hand Alterations Seamstress: JARRELL MEASUREMENT RESULTS: Intervals: Rate: 78 [place]: QRSD: 86 QT: 408 QTc: 465 Newman: P: [place]: QRS: 66 T: 247 INTERPRETIVE STATEMENTS: Atrial fibrillation T wave abnormality, consider inferolateral ischemia Abnormal ECG Compared to ECG 02/26/2018 14:50:16 Possible ischemia now present Sinus rhythm no longer present First degree AV block no longer present T-wave abnormality still present Electronically Signed On 05-10-19 19:40:23 CDT by Ez Burks
[2019-05-12 17:19] VITALS: BP 128/68; TEMP 98; O2SAT 99
== END 2019-05-10 14:05 | disposition home or self-care (01) ==
LOC: ER 10:37
DX: K57.92 Diverticulitis of intestine, part unspecified, without perforation or abscess without bleeding (principal); I10 Essential (primary) hypertension; E11.9 Type 2 diabetes mellitus without complications; Z88.8 Allergy status to other drugs, medicaments and biological substances
CPT/HCPCS: 93005; 85025; 36415; 82962; 84484; 83690; 80053; 74177; 96375; 96374; 99284; Q9967; J2405

== ENCOUNTER 2019-05-14 14:33 | Inpatient (IN) | payer OTHER ==
--- OUTSIDE RECORDS SUMMARY | 2019-05-14 14:36 | XMS REPORT ---
[...] End Status Dosage System Date Date Coreg [facility] 54441373186 25 mg Orally Active 1 tablet Twice daily Klor-Con 10 [facility] 16071486591 10 MEQ Orally Active 1 tablet Twice a day with food Iron [facility] 16361047104 325 (65 Fe) MG Active 1 tablet Orally Once a day Telmisartan [facility] 04584932894 80 MG Orally Active 1 tablet Once a day Doxazosin [facility] 70641526691 1 MG Orally Gabby Active 1 tablet in Mesylate Once a day 2017 evening for high blood pressure GlipiZIDE [facility] 06731595596 5 MG Orally Active 1 tablet Once a day Metformin HCl [facility] 99021776674 1000 MG Orally Active 1 tablet Twice daily with a meal Vitamin D-3 [facility] 77325709865 1000 UNIT Active 2 capsules Orally Once a day Amlodipine [facility] 72507544247 10 MG Orally Active 1 tablet Besylate Once a day Results No Known Results Summary Purpose eClinicalWorks Submission
--- OUTSIDE RECORDS SUMMARY | 2019-05-14 14:36 | XMS REPORT ---
[...] Status Dosage System Date Date Ventolin HFA [facility] 88951067967 108 (90 Base) Nov 24, Active 2 puffs as MCG/ACT 2019 needed for Inhalation sob/wheezin every 4-6 hrs g Metformin HCl [facility] 33460280167 1000 MG Orally Active 1 tablet Twice daily with a meal Doxazosin [facility] 80745862888 2 MG Orally February Active 1 tablet in Mesylate Once a day 2017 evening for high blood pressure Telmisartan [facility] 42250402299 80 MG Orally Active 1 tablet Once a day Vitamin D-[address] [facility] 31030277905 1000 UNIT Active 2 capsules Orally Once a day Klor-Con [address] [facility] 12830109410 10 MEQ Orally Active 1 tablet Twice a day with food Iron [facility] 11269594596 325 (65 Fe) MG Active 1 tablet Orally Once a day Amlodipine [facility] 05536400709 10 MG Orally Active 1 tablet Besylate Once a day Augmentin [facility] 06004073964 500-125 MG Nov 24, Dec 04, Active 1 tablet Orally every 2018 2019 hrs Coreg [facility] 94094312923 25 mg Orally Active 1 tablet Twice daily Doxazosin [facility] 89667408548 1 MG Orally Aug 28, Active 1 tablet in Mesylate Once a day 2018 evening GlipiZIDE [facility] 56454618275 5 MG Orally Active 1 tablet Once a day Results Name Result Date Reference Range Unit Abnormality Flag COMPREHENSIVE METABOLIC PANEL(CMP) ----ALBUMIN/GLOBULI 1.6 [id number] 1.0-2.5 (calc) N N RATIO ----GLOBULIN 2.5 72844607 1.9-3.7 g/dL N (calc) ----ALKALINE 58 20181125 33-130 U/L N PHOSPHATASE ----BILIRUBIN, 0.6 71509253 0.2-1.2 mg/dL N TOTAL ----CHLORIDE 100 20181125 98-110 mmol/L N ----ALT 10 20181125 6-29 U/L N ----POTASSIUM 4.5 66258767 3.5-5.3 mmol/L N ----AST 12 20181125 10-35 U/L N ----SODIUM 136 20181125 135-146 mmol/L N ----BUN/CREATININE NOT APPLICABLE [id number] 6-22 (calc) RATIO ----eGFR 99 20181125 > OR=60 mL/min/1.7 [place] [address] ----CALCIUM 9.2 59685009 8.6-10.4 mg/dL N ----CARBON DIOXIDE 29 20181125 20-32 mmol/L N ----ALBUMIN 4.0 70469535 3.6-5.1 g/dL N ----PROTEIN, TOTAL 6.5 20181125 6.1-8.1 g/dL N ----GLUCOSE 148 64058191 65-99 mg/dL H ----UREA NITROGEN 14 20181125 7-25 mg/dL N (BUN) ----CREATININE 0.70 20181125 0.60-0.93 mg/dL N ----eGFR NON-AFR. 85 21781531 > OR=60 mL/min/1.7 [place] [address] LIPID PANEL ----NON HDL 92 93755010 <130 mg/dL N CHOLESTEROL (calc) ----LDL-CHOLESTEROL 74 65050942 mg/dL N (calc) ----CHOL/HDLC RATIO 2.5 19519512 <5.0 (calc) N ----HDL CHOLESTEROL 63 20181125 >50 mg/dL N ----TRIGLYCERIDES 99 20181125 <150 mg/dL N ----CHOLESTEROL, 155 20181125 <200 mg/dL N TOTAL Summary Purpose eClinicalWorks Submission
--- OUTSIDE RECORDS SUMMARY | 2019-05-14 14:36 | XMS REPORT ---
[...] End Status Dosage System Date Date Telmisartan [facility] 92478340226 80 MG Orally Active 1 tablet Once a day GlipiZIDE [facility] 48190694184 5 MG Orally Active 1 tablet Once a day Doxazosin [facility] 95051049644 1 MG Orally Gabby Active 1 tablet in Mesylate Once a day 2017 evening for high blood pressure Coreg [facility] 32016941645 25 mg Orally Active 1 tablet Twice daily Amlodipine [facility] 56311301466 10 MG Orally Active 1 tablet Besylate Once a day Klor-Con 10 [facility] 16497003122 10 MEQ Orally Active 1 tablet Twice a day with food Iron [facility] 13272187446 325 (65 Fe) MG Active 1 tablet Orally Once a day Vitamin D-3 [facility] 99593110149 1000 UNIT Active 2 capsules Orally Once a day Metformin HCl [facility] 47198422250 1000 MG Orally Active 1 tablet Twice daily with a meal Results Name Result Date Reference Range Unit Abnormality Flag URINALYSIS AUTO W/O SCOPE (53500) ----NIT neg [id number] ----URO 0.2 20180617 ----PROTEIN 1+ 20180617 ----pH 6.0 20180617 ----BLO neg [id number] ----GLUCOSE neg [id number] ----DEDE neg [id number] ----BILIRUBIN neg [id number] ----KETONES neg [id number] ----SPECIFIC GRAVITY >=1.030 20180617 PVR ----PVR 0 [id number] Summary Purpose eClinicalWorks Submission
--- OUTSIDE RECORDS SUMMARY | 2019-05-14 14:36 | XMS REPORT ---
[...] End Status Dosage System Date Date Amlodipine [facility] 54478734329 10 MG Orally Active 1 tablet Besylate Once a day Doxazosin [facility] 89798639737 1 MG Orally Gabby Active 1 tablet in Mesylate Once a day 2017 evening for high blood pressure Klor-Con 10 [facility] 15847559798 10 MEQ Orally Active 1 tablet Twice a day with food Coreg [facility] 99185083415 25 mg Orally Active 1 tablet Twice daily Telmisartan [facility] 82497374406 80 MG Orally Active 1 tablet Once a day Vitamin D-3 [facility] 45447936644 1000 UNIT Active 2 capsules Orally Once a day GlipiZIDE [facility] 36989488430 5 MG Orally Active 1 tablet Once a day Iron [facility] 65462821060 325 (65 Fe) MG Active 1 tablet Orally Once a day Metformin HCl [facility] 04355028363 1000 MG Orally Active 1 tablet Twice daily with a meal Results Name Result Date Reference Range Unit Abnormality Flag URINALYSIS AUTO W/O SCOPE (28234) ----NIT neg [id number] ----URO 0.2 20180706 ----PROTEIN neg [id number] ----pH 6.0 20180706 ----BLO neg [id number] ----GLUCOSE neg [id number] ----DEDE neg [id number] ----BILIRUBIN neg [id number] ----KETONES neg [id number] ----SPECIFIC GRAVITY 1.010 [id number] Summary Purpose eClinicalWorks Submission
--- OUTSIDE RECORDS SUMMARY | 2019-05-14 14:36 | XMS REPORT ---
[...] Status Dosage System Date Date GlipiZIDE [facility] 17076331098 5 MG Orally Active 1 tablet Once a day Metformin HCl [facility] 82745308563 1000 MG Orally Active 1 tablet Twice daily with a meal Iron [facility] 44309543007 325 (65 Fe) MG Active 1 tablet Orally Once a day ProAir HFA [facility] [address]-81 108 (90 Base) Active 2 puffs as MCG/ACT needed for Inhalation SOB/wheezin every 4-6 hrs ig Ventolin HFA [facility] 77666997649 108 (90 Base) Nov 24, Active 2 puffs as MCG/ACT 2019 needed for Inhalation sob/wheezin every 4-6 hrs g Coreg [facility] 22048278534 25 mg Orally Active 1 tablet Twice daily Doxazosin [facility] 01264139478 2 MG Orally February Active 1 tablet in Mesylate Once a day 2017 evening for high blood pressure Amlodipine ND 52126886016 10 MG Orally Active 1 tablet Besylate Once a day Klor-Con 10 [facility] 74678221082 10 MEQ Orally Active 1 tablet Twice a day with food Vitamin D-3 [facility] 93561992689 1000 UNIT Active 2 capsules Orally Once a day Doxazosin ND 58218848194 1 MG Orally Aug 28, Active 1 tablet in Mesylate Once a day 2017 evening Augmentin [facility] 87864222686 500-125 MG Nov 24, Dec 04, Active 1 tablet Orally every 2018 2019 hrs Telmisartan [facility] 20813688902 80 MG Orally Active 1 tablet Once a day Results No Known Results Immunizations Vaccine Administration Date Pneumovax Dec 01, 2018 Summary Purpose eClinicalWorks Submission
--- OUTSIDE RECORDS SUMMARY | 2019-05-14 14:36 | XMS REPORT ---
:1945 Author Organization eClinicalWorks Care Team Providers Name Role Phone Natalia Ross Provider Role Unavailable Allergies No Known Allergies Problems Problem Type Condition Code Onset Dates Condition Status Problem Diabetes E11.9 Active Problem Hypertension, unspecified type I10 Active Problem Hypertension I10 Active Medications Medication Code System Code Instructions Start Date End Date Status Dosage Cipro [facility] 15118686782 500 MG Orally Jun 22, Jun 27, Active 1 tablet every 12 hrs 2017 2017 Results No Known Results Summary Purpose eClinicalWorks Submission
--- OUTSIDE RECORDS SUMMARY | 2019-05-14 14:37 | XMS REPORT ---
[...] finger prick 2018 once daily Doxazosin ND 22131488177 1 MG Orally Aug 28, Active 1 tablet in Mesylate Once a day 2017 evening GlipiZIDE [facility] 57898174476 5 MG Orally Active 1 tablet Once a day Vitamin D-3 ND 40632658007 1000 UNIT Active 2 capsules Orally Once a day Telmisartan ND 98394802802 80 MG Orally Active 1 tablet Once a day ProAir HFA [facility] 89679384866 108 (90 Base) Active 2 puffs as MCG/ACT needed for Inhalation SOB/wheezin every 4-6 hrs ig Ventolin HFA ND 66135377795 108 (90 Base) Nov 24, Active 2 puffs as MCG/ACT 2018 needed for Inhalation sob/wheezin every 4-6 hrs g Iron [facility] 66574231528 325 (65 Fe) MG Active 1 tablet Orally Once a day Metformin HCl ND 58849152601 1000 MG Orally Active 1 tablet Twice daily with a meal Klor-Con 10 [facility] 94713359324 10 MEQ Orally Active 1 tablet Twice a day with food Doxazosin ND 47485868003 2 MG Orally February Active 1 tablet in Mesylate Once a day 2017 evening for high blood pressure Coreg ND 07311546883 25 mg Orally Active 1 tablet Twice daily Amlodipine [facility] 43913321270 10 MG Orally Active 1 tablet Besylate Once a day Results No Known Results Summary Purpose eClinicalWorks Submission
--- OUTSIDE RECORDS SUMMARY | 2019-05-14 14:37 | XMS REPORT ---
[...] Status Dosage System Date Date ProAir HFA [facility] 39249568482 108 (90 Base) Active 2 puffs as MCG/ACT needed for Inhalation SOB/wheezin every 4-6 hrs ig One Touch test ND 0 test strips Dec 28, Active one strip strips finger prick 2018 once daily Vitamin D-3 [facility] 16795705013 1000 UNIT Active 2 capsules Orally Once a day Iron [facility] 33183781323 325 (65 Fe) MG Active 1 tablet Orally Once a day GlipiZIDE [facility] 42127128160 5 MG Orally Active 1 tablet Once a day Amlodipine [facility] 82257211850 10 MG Orally Active 1 tablet Besylate Once a day Coreg ND 68837870686 25 mg Orally Active 1 tablet Twice daily Doxazosin [facility] 18763278685 1 MG Orally Aug 28, Active 1 tablet in Mesylate Once a day 2017 evening Ventolin HFA [facility] 37836023642 108 (90 Base) Nov 24, Active 2 puffs as MCG/ACT 2018 needed for Inhalation sob/wheezin every 4-6 hrs g Klor-Con 10 [facility] 89719425289 10 MEQ Orally Active 1 tablet Twice a day with food Doxazosin [facility] 61001976384 2 MG Orally February Active 1 tablet in Mesylate Once a day 2017 evening for high blood pressure Metformin HCl ND 45273399034 1000 MG Orally Active 1 tablet Twice daily with a meal Telmisartan [facility] 53493506662 80 MG Orally Active 1 tablet Once a day Results No Known Results Summary Purpose eClinicalWorks Submission
--- OUTSIDE RECORDS SUMMARY | 2019-05-14 14:37 | XMS REPORT ---
:1945 Author Organization eClinicalWorks Care Team Providers Name Role Phone Loco Fatou Provider Role Unavailable Allergies No Known Allergies Problems Problem Type Condition Code Onset Dates Condition Status Problem Controlled type 2 diabetes mellitus E11.9 Active without complication, without long-term current use of insulin Problem External hemorrhoids K64.4 Active Problem Essential hypertension I10 Active Problem Abnormal chest x-ray R93.89 Active Problem Enlarged heart I51.7 Active Problem Shortness of breath R06.02 Active Problem Hypertension, unspecified type I10 Active Problem Wheezing R06.2 Active Problem Sigmoid diverticulitis K57.32 Active Problem URI, acute J06.9 Active Problem Depression screening Z13.31 Active Problem Bleeding external hemorrhoids K64.4 Active Problem Non-intractable vomiting with R11.2 Active nausea, unspecified vomiting type Problem Generalized abdominal pain R10.84 Active Medications No Known Medications Results No Known Results Summary Purpose [employer]ClinicalSubway Submission
--- OUTSIDE RECORDS SUMMARY | 2019-05-14 14:37 | XMS REPORT ---
:1945 Author Organization eClinicalWorks Care Team Providers Name Role Phone [place] Provider Role Unavailable Allergies, Adverse Reactions, Alerts [...] End Status Dosage System Date Date Doxazosin [facility] 55925299376 2 MG Orally February Active 1 tablet in Mesylate Once a day 2017 evening for high blood pressure GlipiZIDE [facility] 09875254927 5 MG Orally Active 1 tablet Once a day One Touch test ND 0 test strips Dec 28, Active one strip strips finger prick 2018 once daily Doxazosin ND 74262851636 1 MG Orally Aug 28, Active 1 tablet in Mesylate Once a day 2017 evening Vitamin D-3 [facility] 87420114125 1000 UNIT Active 2 capsules Orally Once a day Coreg [facility] 59895262749 25 mg Orally Active 1 tablet Twice daily Telmisartan [facility] 52707618412 80 MG Orally Active 1 tablet Once a day ProAir HFA [facility] 03958951366 108 (90 Base) Active 2 puffs as MCG/ACT needed for Inhalation SOB/wheezin every 4-6 hrs ig Amlodipine ND 97886964199 10 MG Orally Active 1 tablet Besylate Once a day Ventolin HFA [facility] 86162917057 108 (90 Base) Nov 24, Active 2 puffs as MCG/ACT 2019 needed for Inhalation sob/wheezin every 4-6 hrs g Iron [facility] 62138617944 325 (65 Fe) MG Active 1 tablet Orally Once a day Klor-Con 10 [facility] 34734406910 10 MEQ Orally Active 1 tablet Twice a day with food Metformin HCl ND 70534214727 1000 MG Orally Active 1 tablet Twice daily with a meal Results Name Result Date Reference Range Unit Abnormality Flag URINALYSIS AUTO W/O SCOPE (73897) ----NIT neg 20190104 ----URO 0.2 20190104 ----PROTEIN neg 20190104 ----pH 6.0 20190104 ----BLO neg 20190104 ----GLUCOSE neg 20190104 ----DEDE tr 20190104 ----BILIRUBIN neg 20190104 ----KETONES neg 20190104 ----SPECIFIC GRAVITY <=1.005 20190104 Summary Purpose eClinicalWorks Submission
--- OUTSIDE RECORDS SUMMARY | 2019-05-14 14:37 | XMS REPORT ---
[...] Status Dosage System Date Date Vitamin D-3 [facility] 50231442923 1000 UNIT Active 2 capsules Orally Once a day Iron [facility] 09021225171 325 (65 Fe) MG Active 1 tablet Orally Once a day Telmisartan [facility] 00649248094 80 MG Orally Active 1 tablet Once a day One Touch test ND 0 test strips Dec 28, Active one strip strips finger prick 2018 once daily GlipiZIDE [facility] 93623550882 5 MG Orally Active 1 tablet Once a day Doxazosin ND 13676160630 1 MG Orally Aug 28, Active 1 tablet in Mesylate Once a day 2017 evening Klor-Con [address] [facility] 13152214200 10 MEQ Orally Active 1 tablet Twice a day with food Amlodipine [facility] 75340128009 10 MG Orally Active 1 tablet Besylate Once a day Tessalon Perles ND 86208893123 100 MG Orally May 04May Active 1 capsule Three times a 2019 05, as needed day 2018 for cough Doxazosin ND 09257244310 2 MG Orally February Active 1 tablet in Mesylate Once a day 2017 evening for high blood pressure ProAir HFA [facility] 68011425951 108 (90 Base) Active 2 puffs as MCG/ACT needed for Inhalation SOB/wheezin every 4-6 hrs ig Metformin HCl [facility] 00621969159 1000 MG Orally Active 1 tablet Twice daily with a meal Ventolin HFA [facility] 72406706265 108 (90 Base) Nov 24, Active 2 puffs as MCG/ACT 2019 needed for Inhalation sob/wheezin every 4-6 hrs g Augmentin [facility] 80481771837 500-125 MG May 04May Active 1 tablet Orally every 2018 05, hrs 2019 Coreg [facility] 66137255902 25 mg Orally Active 1 tablet Twice daily Results Name Result Date Reference Range Unit Abnormality Flag STREP A RAPID ----Result Negative [id number] Summary Purpose eClinicalWorks Submission
--- OUTSIDE RECORDS SUMMARY | 2019-05-14 14:37 | XMS REPORT ---
[...] End Status Dosage System Date Date Iron [facility] 43550208292 325 (65 Fe) MG Active 1 tablet Orally Once a day Vitamin D-3 [facility] 24273383098 1000 UNIT Active 2 capsules Orally Once a day GlipiZIDE [facility] 64181052982 5 MG Orally Active 1 tablet Once a day Doxazosin [facility] 35638291521 2 MG Orally February Active 1 tablet in Mesylate Once a day 2017 evening for high blood pressure One Touch test NDC 0 test strips Dec 28, Active one strip strips finger prick 2018 once daily Doxazosin [facility] 62387704115 1 MG Orally Aug 28, Active 1 tablet in Mesylate Once a day 2017 evening Klor-Con 10 [facility] 53322025804 10 MEQ Orally Active 1 tablet Twice a day with food Coreg ND 40239873823 25 mg Orally Active 1 tablet Twice daily Telmisartan [facility] 65736502585 80 MG Orally Active 1 tablet Once a day Metformin HCl ND 17477431662 1000 MG Orally Active 1 tablet Twice daily with a meal Ventolin HFA [facility] 37358549772 108 (90 Base) Nov 24, Active 2 puffs as MCG/ACT 2019 needed for Inhalation sob/wheezin every 4-6 hrs g ProAir HFA [facility] 79678796547 108 (90 Base) Active 2 puffs as MCG/ACT needed for Inhalation SOB/wheezin every 4-6 hrs ig Amlodipine [facility] 29631001068 10 MG Orally Active 1 tablet Besylate Once a day Results No Known Results Summary Purpose eClinicalWorks Submission
--- NOTE | 2019-05-14 15:28 | RAD REPORT ---
EXAM DESCRIPTION: CT - Head C Spine Cap Wo Con - 05/14/2019 3:05 pm CLINICAL HISTORY: Fall, head and neck injury, vomiting, head, neck, chest and abdomen pain COMPARISON: None. TECHNIQUE: Axial [address] head images were obtained. Axial [address] cervical spine images were obtain ed with sagittal and coronal reconstruction images reviewed. Axial 5 mm images of the chest, abdomen and pelvis were obtained. All CT scans are performed using dose optimization technique as appropriate and may include automated exposure control or mA/KV adjustment according to patient size. FINDINGS: No intracranial hemorrhage, mass or edema. No midline shift or abnormal fluid collection. Mastoid air cells are underpneumatized. Air-fluid level is present in the partially imaged left maxil laisha sinus. No additional findings in this region that would indicate significant facial bone trauma. This can be followed or further evaluated as clinical findings warrant. No skull fracture. Arterial tree calcifications are present. Cervical bodies are normal in height. There is reversal of the usual cervical lordosis with the apex at C5-6. Very slight anterior subluxation of C4 on C5 noted secondary to facet joint degenerative vicki nge. No fracture or acute bone finding.C5-6 and C6-7 disc space narrowing present. Multilevel facet j oint degenerative change seen. Bilateral bony foraminal stenosis present at C5-6 with central spinal stenosis. Bilateral foraminal stenosis with central spinal stenosis suspected at C6-7.No prevertebral soft tissue thickening or paraspinal mass.Central canal detail is inherently limited on CT imaging. No pneumothorax or pulmonary contusion. Motion degradation is present. There is a minimal amount of r eticulonodular opacification in the anterior mid right lung field. Long-term significance is doubtful . No mediastinal hematoma and the aorta and pulmonary arteries are unremarkable. No chest will mass or abnormal axillary finding. No displaced rib fracture or other significant bony finding. CT abdomen and pelvis show no injury to solid abdominal viscera. Cholecystectomy clips are present. N o biliary tree dilatation. No gastric dilatation or wall thickening. Colon is decompressed. Multiple dilated small bowel loops are present extending to the mid ileum level. An obstructing mass is not id entified. This could be adhesion, scarring or internal hernia. No free air or pneumatosis. There is s ome edema or stranding in the fat adjacent to the dilated small bowel loops. No mass or bulky lymphadenopathy. Postsurgical changes is seen along the midline abdomen. Patient holliday s several ventral hernias. These are supraumbilical in location. No bowel involvement. Urinary bladder is contracted limiting assessment. Pelvic floor laxity is evident. Uterus is absent . Ovaries are absent or atrophic. No significant bony finding. IMPRESSION: Multiple dilated small bowel to the mid ileum level. This has the appearance of phonograph mechanic al small bowel obstruction and may be secondary to adhesion, bowel stricture or internal hernia. No hemorrhage, edema or acute CT Head finding. Mild atrophy and chronic ischemic changes are present. Cervical spine degenerative changes are present with spinal stenosis and foraminal encroachment joaquin es. No fracture or acute finding. No significant CT chest finding. No intraabdominal free air. No surgically emergent abdominal or pelvic finding.
--- NOTE | 2019-05-14 15:34 | RAD REPORT ---
EXAM DESCRIPTION: RAD - Chest Single View - 05/14/2019 3:13 pm CLINICAL HISTORY: Fall, head injury, chest pain COMPARISON: May 12 chest exam TECHNIQUE: AP portable chest image was obtained 1509 hours . FINDINGS: No pulmonary contusion, mass or other acute lung parenchymal process. Heart size is upper normal, similar to comparison, with no vascular engorgement. No measurable pleural effusion and no pn eumothorax. AC joint degenerative changes are present. No acute bone process suspected. No acute aort ic findings suspected. IMPRESSION: No acute cardiopulmonary process.
--- NOTE | 2019-05-14 15:48 | ER ---
Nurse's Notes [facility] Name: Jesi Lee Age: 73 yrs Sex: Female : 1945 Arrival Date: 05/14/2019 Time: 14:35 Bed 6 Private MD: Fatou Adan Diagnosis: Dyspnea;Type 2 diabetes mellitus;Abdominal tenderness;Other intestinal obstruction-mechanical sbo;Repeated falls;Superficial injury of head;Altered mental status, unspecified;Hypo-osmolality and hyponatremia Presentation: 05/14 14:38 Presenting complaint: Fall and hit head on corner of wooden dresser while ambulating in bedroom, was assisted to standing then fell and hit head on dresser again. Negative LOC, + vomit x 3 prior to arrival. reports pt is not acting like herself, seems confused. Care prior to arrival: None. Mechanism of Injury: Fall from standing position. 14:38 Acuity: RENETTA 2 hb 14:38 Method Of Arrival: Wheelchair 14:48 Trauma event details: Injury occurred in the [facility], Injury occurred: at home. Injury occurred: May 14, 2019 Injury occurred at: 14:15. 14:49 Transition of care: patient was not received from another setting of care. Onset of symptoms was May 14, 2019. Risk Assessment: Do you want to hurt yourself or someone else? Patient reports no desire to harm self or others. Initial Sepsis Screen: Does the patient meet any 2 criteria? No. Patient's initial sepsis screen is negative. Does the patient have a suspected source of infection? No. Patient's initial sepsis screen is negative. Trauma Activation: Alert Physician: ED Physician; Name: ; Notified At: ; Arrived At: Physician: General Surgeon; Name: ; Notified At: ; Arrived At: Physician: Radiology; Name: ; Notified At: ; Arrived At: Physician: Respiratory; Name: ; Notified At: ; Arrived At: Physician: Lab; Name: ; Notified At: ; Arrived At: Historical: - Allergies: 14:43 Cipro; hb - Home Meds: 14:47 amlodipine 10 mg tab 1 tab once daily [Active]; carvedilol 25 mg Oral tab 2 times per day [Active]; doxazosin 1 mg Oral tab 1 tab once daily [Active]; glipizide 5 mg Oral tab 1 tab 2 times per day [Active]; METFORMIN HCL 1000mg twice a day [Active]; telmisartan 80 mg Oral tab 1 tab once daily [Active]; - PMHx: 14:47 Diabetes; Hypertension; hb - PSHx: 14:47 Cholecystectomy; Hysterectomy; 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 - Immunization history: Last tetanus immunization: - up to date. - Social history:: Smoking status: Patient/guardian denies using tobacco. - Ebola Screening: : No symptoms or risks identified at this time. Screenin:48 Abuse screen: Denies threats or abuse. Denies injuries from another. Tuberculosis hb screening: No symptoms or risk factors identified. 14:55 Nutritional screening: No deficits noted. Fall Risk Fall in past 12 months (25 points). tr5 No secondary diagnosis (0 pts). No IV (0 pts). Ambulatory Aid- None/Bed Rest/Nurse Assist (0 pts). Gait- Normal/Bed Rest/Wheelchair (0 pts) Mental Status- Oriented to own ability (0 pts). Total Abrams Fall Scale indicates Low Risk Score (25-44 pts). Primary Survey: 14:38 NO uncontrolled hemorrhage observed. A: The patient is alert. Airway: patent, No hb supplemental oxygen in use on arrival. Oral cavity: clear, Trachea midline. Breathing/Chest: Respiratory pattern: regular, Respiratory effort: spontaneous, unlabored, Chest inspection: symmetrical rise and fall of the chest. Circulation: Skin color: pink, Skin temperature: warm, dry. Disability Alert. Exposure/Environment: There is no evidence of uncontrolled external bleeding. No obvious injuries are noted at this time. 19:17 Reassessment Airway Airway Patent Breathing/Chest Respiratory pattern Regular. ph Assessment: 14:50 General: Appears in no apparent distress. Behavior is calm, cooperative, appropriate tr5 for age. Pain: Complains of pain in occipital area Pain does not radiate. Pain currently is 5 out of 10 on a pain scale. Quality of pain is described as. Neuro: Level of Consciousness is awake, alert, obeys commands, confused, Oriented to person, place, time, situation, Box Sealing Machine Operator are equal bilaterally Moves all extremities. Speech is normal. EENT: No signs and/or symptoms were reported regarding the EENT system. Cardiovascular: Denies chest pain, Heart tones present Bruits absent Capillary refill < 3 seconds Pulses are all present. Edema is absent. Respiratory: Airway is patent Trachea midline Respiratory effort is even, unlabored, Respiratory pattern is regular, symmetrical, Breath sounds are clear bilaterally. GI: No signs and/or symptoms were reported involving the gastrointestinal system. : No signs and/or symptoms were reported regarding the genitourinary system. Derm: Skin is intact, Skin is dry, Skin is pink, warm \T\ dry. Skin temperature is warm. Musculoskeletal: Capillary refill < 3 seconds, Range of motion: intact in all extremities. 16:10 Reassessment: Patient appears in no apparent distress at this time. Patient is alert, tr5 oriented x 3, equal unlabored respirations, skin warm/dry/pink. 17:20 Reassessment: Patient appears in no apparent distress at this time. Patient is alert, tr5 oriented x 3, equal unlabored respirations, skin warm/dry/pink. Patient states feeling better. 18:30 Reassessment: Patient appears in no apparent distress at this time. Patient and/or ph family updated on plan of care and expected duration. Pain level reassessed. Dr Gavin at bedside to place central line, consent signed by . 19:00 General: Appears in no apparent distress. comfortable, Behavior is calm, cooperative, rr5 appropriate for age. Pain: Denies pain. Neuro: Level of Consciousness is awake, alert, obeys commands, Oriented to person, place, time, situation, Appropriate for age Box Sealing Machine Operator are equal bilaterally Moves all extremities. Speech is normal. 19:00 Cardiovascular: Capillary refill < 3 seconds Patient's skin is warm and dry. rr5 Respiratory: Airway is patent Respiratory effort is even, unlabored, Respiratory pattern is regular, symmetrical. GI: Abdomen is distended. : No signs and/or symptoms were reported regarding the genitourinary system. EENT: Parent/caregiver reports the patient having decreased hearing. Derm: Skin is intact, Skin temperature is. 19:00 Derm: Bruising that is dark purple, on back and right leg. rr5 20:00 Reassessment: Patient appears in no apparent distress at this time. Patient and/or rr5 family updated on plan of care and expected duration. Pain level reassessed. Patient is alert, oriented x 3, equal unlabored respirations, skin warm/dry/pink. no complaints made. 20:35 Reassessment: Patient appears in no apparent distress at this time. Patient is alert, rr5 oriented x 3, equal unlabored respirations, skin warm/dry/pink. chatting with her virtualization consultant. denies any pain. for transfer to ICU 3. Vital Signs: 14:42 BP 154 / 73; Pulse 70; Resp 16; Temp 98.2; Pulse Ox 100% on R/A; Weight 61.23 kg; hb Height 5 ft. 1 in. (154.94 cm); Pain 5/10; 15:50 BP 146 / 78; Pulse 68; Resp 16; Pulse Ox 100% on R/A; tr5 16:30 BP 148 / 70; Pulse 70; Resp 16; Pulse Ox 95% on R/A; tr5 17:42 BP 152 / 75; Pulse 68; Resp 19; Pulse Ox 98% on R/A; tr5 18:30 BP 163 / 78; Pulse 67; Resp 22; Pulse Ox 99% on R/A; ph 19:00 BP 161 / 65; Pulse 66; Resp 16; Temp 98.2; Pulse Ox 100% on R/A; rr5 20:15 BP 153 / 72; Pulse 64; Resp 15; Temp 98.3; Pulse Ox 100% ; rr5 14:42 Body Mass Index 25.51 (61.23 kg, 154.94 cm) hb Travis Coma Score: 14:56 Eye Response: spontaneous(4). Verbal Response: oriented(5). Motor Response: obeys tr5 commands(6). Total: 15. 15:01 Eye Response: spontaneous(4). Verbal Response: oriented(5). Motor Response: obeys vicki commands(6). Total: 15. 19:00 Eye Response: spontaneous(4). Verbal Response: oriented(5). Motor Response: obeys rr5 commands(6). Total: 15. Trauma Score (Adult): 14:42 Eye Response: spontaneous(1); Verbal Response: confused(1); Motor Response: obeys hb commands(2); Systolic BP: > 89 mm Hg(4); Respiratory Rate: 10 to 29 per min(4); Travis Score: 14; Trauma Score: 12 ED Course: 14:35 Patient arrived in ED. mr 14:35 Fatou Adan MD is Private Physician. mr 14:42 Triage completed. hb 14:43 Arm band placed on. hb 14:45 Alex Andrade, RAUL is Primary Nurse. tr5 14:45 Simeon Gavin MD is Attending Physician. vicki 14:49 Patient has correct armband on for positive identification. Bed in low position. Call hb light in reach. Side rails up X 1. 14:49 Patient maintains SpO2 saturation greater than 95% on room air. hb 15:00 Thermoregulation: warm blanket given to patient. ph 15:06 CT Traumagram (Head C Spine CAP wo con) In Process Unspecified. EDMS 15:11 Chest Single View XRAY In Process Unspecified. EDMS 15:45 Tariq Marks DO is Hospitalizing Provider. vicki 15:50 Inserted saline lock: 22 gauge in right antecubital area, using aseptic technique. tr5 18:35 Assisted provider with central line placement. Set up central line tray. Triple lumen ph line placed in left femoral. Line placed by Simeon Gavin MD Placement verified by blood return, Dressed with Tegaderm, Patient tolerated well. Before procedure, did Practitioner(s) obtain informed consent? Yes. Patient \T\ family education about procedure, CLABSI prevention and S/S of infection? Yes. Time-out/Briefing performed prior to start of procedure? Yes. Was handwashing/sanitizing done immediately prior to procedure? Yes. Was patient positioned to in a way to prevent air embolism? Yes. Was procedure site sterilized? Yes, with Was the site allowed to dry? Yes. Was local anesthetic and/or sedation utilized? Yes. During the procedure, did the Practitioner(s) maintain a sterile field? Yes. Were unused ports clamped during insertion? Yes. Was a 2nd qualified MD obtained after 3 unsuccessful insertion attempts? No. Was blood aspirated from each lumen? Yes. After the procedure, did the Practitioner(s) clean the site and apply a sterile dressing? Yes. 18:45 Orellana cath inserted, using sterile technique, 16 Fr., by mi, balloon inflated, to ph gravity drainage, urine specimen collected. returned shanna urine. Patient admitted, IV remains in place. 19:50 NGT: inserted 14 Fr. via left nare. verified placement of air over stomach, verified rr5 return of gastric contents, to intermittent suction. Returned gastric contents. flushed with 20 ml NS Patient tolerated well. Administered Medications: Discontinued: NS 0.9% 1000 ml IV at 125 ml/hr continuous 15:50 Drug: Rocephin - (cefTRIAXone) 1 grams Route: IVPB; Infused Over: 30 mins; Site: right tr5 antecubital; 16:24 Follow up: Response: No adverse reaction; IV Status: Completed infusion tr5 16:04 Drug: Flagyl 500 mg Volume: 100 ml; Route: IVPB; Rate: 200 ml/hr; Infused Over: 30 tr5 mins; Site: right antecubital; 16:23 Follow up: Response: No adverse reaction; IV Status: Completed infusion tr5 16:04 Drug: Xopenex 1.25 mg Route: Inhalation; tr5 16:23 Follow up: Response: No adverse reaction tr5 16:04 Drug: AtroVENT Aerosol 0.5 mg Route: Inhalation; tr5 16:23 Follow up: Response: No adverse reaction tr5 16:05 Drug: NS 0.9% 1000 ml Route: IV; Rate: 125 ml/hr; Site: right antecubital; tr5 16:26 Follow up: Response: No adverse reaction; IV Status: Completed infusion tr5 16:05 Drug: Thiamine 100 mg Route: IV; Rate: bolus; Site: right antecubital; tr5 16:25 Follow up: Response: No adverse reaction; IV Status: Completed infusion tr5 18:25 Drug: NS 0.9% 500 ml Route: IV; Rate: bolus; Site: right antecubital; ph 19:21 Follow up: Response: No adverse reaction; IV Status: Completed infusion; IV Intake: ph 500ml Intake: 19:21 IV: 500ml; Total: 500ml. ph 19:50 PO: 0ml; Tubes: 30ml (NGT); Total: 530ml. rr5 Outcome: 15:47 Decision to Hospitalize by Provider. vicki 19:18 Patient's length of stay was extended due to no available ICU beds in the hospital. ph 20:20 Admitted to ICU accompanied by nurse, via stretcher, room 3, Report called to [email or web address] 20:20 Condition: stable 20:20 Instructed on the need for admit. 20:47 Patient left the ED. rr5 Signatures: Dispatcher [employer] Simeon Quispe MD MD cha Rivera, Karolina mr Sorto, Malia, RN RN ph Chanel Del Valle, RN RN Chandana Brown RN RN rr5 Alex Andrade RN RN tr5 Corrections: (The following items were deleted from the chart) 16:10 16:09 Inserted saline lock: 22 gauge in right antecubital area, using aseptic tr5 technique. tr5
--- NOTE | 2019-05-14 15:49 | EDPHYS ---
Physician Documentation [facility] – [place], [place] Name: Jesi Lee Age: 73 yrs Sex: Female : 1945 Arrival Date: 05/14/2019 Time: 14:35 Bed 6 Private MD: Fatou Adan ED Physician Simeon Gavin HPI: 05/14 15:01 This 73 yrs old Female presents to ER via Wheelchair with complaints of Head vicki Injury Without LOC-Adult, Fall Injury, Confusion. 15:01 The patient or guardian reports pain. The complaints affect the left side of the back vicki of head, left occipital area, left base of the skull, right side of the back of head, right occipital area and right base of the skull. Historical: - Allergies: 14:43 Cipro; hb - Home Meds: 14:47 amlodipine 10 mg tab 1 tab once daily [Active]; carvedilol 25 mg Oral tab 2 times per hb day [Active]; doxazosin 1 mg Oral tab 1 tab once daily [Active]; glipizide 5 mg Oral tab 1 tab 2 times per day [Active]; METFORMIN HCL 1000mg twice a day [Active]; telmisartan 80 mg Oral tab 1 tab once daily [Active]; - PMHx: 14:47 Diabetes; Hypertension; hb - PSHx: 14:47 Cholecystectomy; Hysterectomy; 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 - Immunization history: Last tetanus immunization: - up to date. - Social history:: Smoking status: Patient/guardian denies using tobacco. - Ebola Screening: : No symptoms or risks identified at this time. ROS: 15:02 Constitutional: Negative for fever, chills, and weight loss, Eyes: Negative for injury, vicki pain, redness, and discharge, ENT: Negative for injury, pain, and discharge, Neck: Negative for injury, pain, and swelling, Cardiovascular: Negative for chest pain, palpitations, and edema, Respiratory: Negative for shortness of breath, cough, wheezing, and pleuritic chest pain, Abdomen/GI: Negative for abdominal pain, nausea, vomiting, diarrhea, and constipation, Back: Negative for injury and pain, : Negative for injury, bleeding, discharge, and swelling, MS/Extremity: Negative for injury and deformity, Skin: Negative for injury, rash, and discoloration, Psych: Negative for depression, anxiety, suicide ideation, homicidal ideation, and hallucinations, Allergy/Immunology: Negative for hives, rash, and allergies, Endocrine: Negative for neck swelling, polydipsia, polyuria, polyphagia, and marked weight changes. 15:02 Neuro: Positive for headache, weakness. Exam: 15:02 Constitutional: This is a well developed, well nourished patient who is awake, alert, vicki and in no acute distress. Eyes: Pupils equal round and reactive to light, extra-ocular motions intact. Lids and lashes normal. Conjunctiva and sclera are non-icteric and not injected. Cornea within normal limits. Periorbital areas with no swelling, redness, or edema. ENT: Nares patent. No nasal discharge, no septal abnormalities noted. Tympanic membranes are normal and external auditory canals are clear. Oropharynx with no redness, swelling, or masses, exudates, or evidence of obstruction, uvula midline. Mucous membranes moist. Neck: Trachea midline, no thyromegaly or masses palpated, and no cervical lymphadenopathy. Supple, full range of motion without nuchal rigidity, or vertebral point tenderness. No Meningismus. Chest/axilla: Normal chest wall appearance and motion. Nontender with no deformity. No lesions are appreciated. Cardiovascular: Regular rate and rhythm with a normal S1 and S2. No gallops, murmurs, or rubs. Normal PMI, no JVD. No pulse deficits. Respiratory: Lungs have equal breath sounds bilaterally, clear to auscultation and percussion. No rales, rhonchi or wheezes noted. No increased work of breathing, no retractions or nasal flaring. Abdomen/GI: Soft, non-tender, with normal bowel sounds. No distension or tympany. No guarding or rebound. No evidence of tenderness throughout. Back: No spinal tenderness. No costovertebral tenderness. Full range of motion. Skin: Warm, dry with normal turgor. Normal color with no rashes, no lesions, and no evidence of cellulitis. MS/ Extremity: Pulses equal, no cyanosis. Neurovascular intact. Full, normal range of motion. Psych: Awake, alert, with orientation to person, place and time. Behavior, mood, and affect are within normal limits. 15:02 Respiratory: the patient does not display signs of respiratory distress, Respirations: no acute changes, Breath sounds: bronchial sounds, that are mild, decreased breath sounds, rhonchi, wheezing: inspiratory expiratory 15:02 Neuro: Orientation: is normal, appropriate for stated age, no acute changes, Mentation: is normal, appropriate for stated age, no acute changes, Motor: is normal, Gait: not tested. seizure activity, is not displayed by the patient. Vital Signs: 14:42 BP 154 / 73; Pulse 70; Resp 16; Temp 98.2; Pulse Ox 100% on R/A; Weight 61.23 kg; hb Height 5 ft. 1 in. (154.94 cm); Pain 5/10; 15:50 BP 146 / 78; Pulse 68; Resp 16; Pulse Ox 100% on R/A; tr5 16:30 BP 148 / 70; Pulse 70; Resp 16; Pulse Ox 95% on R/A; tr5 17:42 BP 152 / 75; Pulse 68; Resp 19; Pulse Ox 98% on R/A; tr5 18:30 BP 163 / 78; Pulse 67; Resp 22; Pulse Ox 99% on R/A; ph 19:00 BP 161 / 65; Pulse 66; Resp 16; Temp 98.2; Pulse Ox 100% on R/A; rr5 20:15 BP 153 / 72; Pulse 64; Resp 15; Temp 98.3; Pulse Ox 100% ; rr5 14:42 Body Mass Index 25.51 (61.23 kg, 154.94 cm) hb Travis Coma Score: 14:56 Eye Response: spontaneous(4). Verbal Response: oriented(5). Motor Response: obeys tr5 commands(6). Total: 15. 15:01 Eye Response: spontaneous(4). Verbal Response: oriented(5). Motor Response: obeys vicki commands(6). Total: 15. 19:00 Eye Response: spontaneous(4). Verbal Response: oriented(5). Motor Response: obeys rr5 commands(6). Total: 15. Trauma Score (Adult): 14:42 Eye Response: spontaneous(1); Verbal Response: confused(1); Motor Response: obeys hb commands(2); Systolic BP: > 89 mm Hg(4); Respiratory Rate: 10 to 29 per min(4); Travis Score: 14; Trauma Score: 12 Procedures: 18:43 Central Line: the site was prepped with Betadine, in sterile fashion, a triple lumen [facility] catheter was inserted, in the right femoral vein, in 3 attempts. placement was verified, by blood return, the site was dressed with using sterile technique, the patient tolerated the procedure, well. MDM: 14:45 Patient medically screened. [facility] 15:05 Data reviewed: vital signs, nurses notes, lab test result(s), EKG, radiologic studies, [facility] CT scan, plain films. 05/14 14:57 Order name: Basic Metabolic Panel; Complete Time: 16:35 [facility] 05/14 14:57 Order name: CBC with Diff; Complete Time: 17:29 [facility] 05/14 14:57 Order name: LFT's; Complete Time: 16:35 [facility] 05/14 14:57 Order name: Magnesium; Complete Time: 16:35 [facility] 05/14 14:57 Order name: NT PRO-BNP; Complete Time: 16:35 [facility] 05/14 14:57 Order name: PT-INR; Complete Time: 16:35 [facility] 05/14 14:57 Order name: Troponin (emerg Dept Use Only); Complete Time: 16:35 [facility] 05/14 14:57 Order name: Blood Culture Adult (2) [facility] 05/14 14:57 Order name: Urine Culture [facility] 05/14 14:57 Order name: UDS [facility] 05/14 14:57 Order name: AMMONIA; Complete Time: 16:35 [facility] 05/14 14:57 Order name: Alcohol Level; Complete Time: 16:35 [facility] 05/14 16:42 Order name: Osmolality, Serum 05/14 16:42 Order name: Urine Osmolality [facility] 05/14 14:57 Order name: Chest Single View XRAY; Complete Time: 15:42 [facility] 05/14 14:57 Order name: CT Traumagram (Head C Spine CAP wo con); Complete Time: 15:42 [facility] 05/14 16:42 Order name: Urine Sodium Random 05/14 16:44 Order name: Chem 7 05/14 16:53 Order name: Manual Differential; Complete Time: 17:29 EDMS 05/14 18:05 Order name: Basic Metabolic Panel; Complete Time: 18:58 EDMS 05/14 18:20 Order name: Osmolality, Serum; Complete Time: 18:58 EDMS 05/14 19:10 Order name: Urine Dipstick--Ancillary (enter results) cm6 05/14 19:19 Order name: Osmolality, Urine [facility] 05/14 19:58 Order name: UR SODIUM [facility] 05/14 19:59 Order name: Urine Dipstick-Ancillary [facility] 05/14 14:57 Order name: EKG; Complete Time: 14:59 [facility] 05/14 14:57 Order name: Cardiac monitoring; Complete Time: 15:00 [facility] 05/14 14:57 Order name: EKG - Nurse/Tech; Complete Time: 15:00 [facility] 05/14 14:57 Order name: IV Saline Lock; Complete Time: 15:00 [facility] 05/14 14:57 Order name: Labs collected and sent; Complete Time: 15:00 [facility] 05/14 14:57 Order name: O2 Per Protocol; Complete Time: 15:00 [facility] 05/14 14:57 Order name: O2 Sat Monitoring; Complete Time: 15:00 [facility] 05/14 15:45 Order name: NPO; Complete Time: 15:46 [facility] 05/14 16:42 Order name: Seizure Precautions; Complete Time: 17:43 [facility] 05/14 16:44 Order name: Central Line Kit; Complete Time: 19:00 [facility] 05/14 16:49 Order name: Orellana; Complete Time: 19:00 [facility] 05/14 19:45 Order name: NG Tube: low int; Complete Time: 20:11 [facility] Administered Medications: Discontinued: NS 0.9% 1000 ml IV at 125 ml/hr continuous 15:50 Drug: Rocephin - (cefTRIAXone) 1 grams Route: IVPB; Infused Over: 30 mins; Site: right tr5 antecubital; 16:24 Follow up: Response: No adverse reaction; IV Status: Completed infusion tr5 16:04 Drug: Flagyl 500 mg Volume: 100 ml; Route: IVPB; Rate: 200 ml/hr; Infused Over: 30 tr5 mins; Site: right antecubital; 16:23 Follow up: Response: No adverse reaction; IV Status: Completed infusion tr5 16:04 Drug: Xopenex 1.25 mg Route: Inhalation; tr5 16:23 Follow up: Response: No adverse reaction tr5 16:04 Drug: AtroVENT Aerosol 0.5 mg Route: Inhalation; tr5 16:23 Follow up: Response: No adverse reaction tr5 16:05 Drug: NS 0.9% 1000 ml Route: IV; Rate: 125 ml/hr; Site: right antecubital; tr5 16:26 Follow up: Response: No adverse reaction; IV Status: Completed infusion tr5 16:05 Drug: Thiamine 100 mg Route: IV; Rate: bolus; Site: right antecubital; tr5 16:25 Follow up: Response: No adverse reaction; IV Status: Completed infusion tr5 18:25 Drug: NS 0.9% 500 ml Route: IV; Rate: bolus; Site: right antecubital; ph 19:21 Follow up: Response: No adverse reaction; IV Status: Completed infusion; IV Intake: ph 500ml Disposition: 05/14/19 15:47 Hospitalization ordered by Tariq Marks for Inpatient Admission. Preliminary diagnosis are Dyspnea, Type 2 diabetes mellitus, Abdominal tenderness, Other intestinal obstruction - mechanical sbo, Repeated falls, Superficial injury of head, Altered mental status, unspecified, Hypo-osmolality and hyponatremia. - Bed requested for Intensive Care Unit. - Status is Inpatient Admission. rr5 - Condition is Stable. - Problem is new. - Symptoms have improved. UTI on Admission? No Signatures: Dispatcher [employer] EDMS Nancy Viramontes RN RN dw Anderson, Corey, MD MD cha Hall, Patricia RN Chanel Henriquez ph, Chandana Mosher RN, RN RN rr5 Alex Andrade RN RN tr5 Corrections: (The following items were deleted from the chart) 16:36 15:47 Hospitalization Ordered by Tariq Marks DO for Inpatient Admission. Preliminary vicki diagnosis is Dyspnea; Type 2 diabetes mellitus; Abdominal tenderness; Other intestinal obstruction - mechanical sbo; Repeated falls; Superficial injury of head; Altered mental status, unspecified. Bed requested for Telemetry/MedSurg (Inpatient). Status is Inpatient Admission. Condition is Stable. Problem is new. Symptoms have improved. UTI on Admission? No. vicki 16:43 16:36 05/14/2019 15:47 Hospitalization Ordered by Tariq Marks DO for Inpatient vicki Admission. Preliminary diagnosis is Dyspnea; Type 2 diabetes mellitus; Abdominal tenderness; Other intestinal obstruction - mechanical sbo; Repeated falls; Superficial injury of head; Altered mental status, unspecified. Bed requested for Intensive Care Unit. Status is Inpatient Admission. Condition is Stable. Problem is new. Symptoms have improved. UTI on Admission? No. vciki 19:01 16:43 05/14/2019 15:47 Hospitalization Ordered by Tariq Marks DO for Inpatient dw Admission. Preliminary diagnosis is Dyspnea; Type 2 diabetes mellitus; Abdominal tenderness; Other intestinal obstruction - mechanical sbo; Repeated falls; Superficial injury of head; Altered mental status, unspecified; Hypo-osmolality and hyponatremia. Bed requested for Intensive Care Unit. Status is Inpatient Admission. Condition is Stable. Problem is new. Symptoms have improved. UTI on Admission? No. vicki 20:47 19:01 05/14/2019 15:47 Hospitalization Ordered by Tariq Marks DO for Inpatient rr5 Admission. Preliminary diagnosis is Dyspnea; Type 2 diabetes mellitus; Abdominal tenderness; Other intestinal obstruction - mechanical sbo; Repeated falls; Superficial injury of head; Altered mental status, unspecified; Hypo-osmolality and hyponatremia. Bed requested for Intensive Care Unit. Status is Inpatient Admission. Condition is Stable. Problem is new. Symptoms have improved. UTI on Admission? No. dw
[2019-05-14 16:04] LABS: Absolute Lymphocytes (CBC) 1.1 K/uL (0.7-4.9); Basophils % 0.1 % (0-1.3); Hematocrit 32.9 % (36.0-45.0); Lymphocytes % 3.9 % (15.3-44.8); MPV 7.9 fL (7.6-11.3); RBC Red Blood Cell Count 4.03 M/uL (3.86-4.86)
[2019-05-14] MEDS ORDERED: CEFTRIAXONE/SWI 1gm 1 GM/10 ML SYR ONE (16:06)
[2019-05-14] MEDS ORDERED: THIAMINE 200 MG/2 ML INJ ONE (16:06)
[2019-05-14] MEDS ORDERED: IPRATROPIUM BROM 0.5MG/2.5ML ONE (16:06)
[2019-05-14] MEDS ORDERED: LEVALBUTEROL 1.25 MG/3 ML NEB ONE (16:06)
[2019-05-14] MEDS ORDERED: NA CHLORIDE 0.9% 1,000 ML ONE (16:06)
[2019-05-14] MEDS ORDERED: METRONIDAZOLE 500mg IVPB 500 MG/100 ML BAG IV ONE (16:07)
[2019-05-14 16:16] LABS: Protime INR 0.99
[2019-05-14 16:18] LABS: ALT/SGPT 28 U/L (12-78); AST/SGOT 22 U/L (15-37); Albumin 2.9 g/dL (3.4-5.0); Alkaline Phosphatase 80 U/L (45-117); BUN Blood Urea Nitrogen 38 mg/dL (7-18); Bicarbonate 25 mmol/L (21-32); Bilirubin Direct 0.2 mg/dL (0-0.2); Bilirubin Total 0.7 mg/dL (0.2-1.0); Glucose Level 205 mg/dL (74-106); Magnesium 1.8 mg/dL (1.8-2.4); NT PRO-BNP 2836 pg/mL (<125); Potassium 4.3 mmol/L (3.5-5.1); Protein, Total 6.9 g/dL (6.4-8.2); Troponin (Emerg Dept Use Only) < 0.02 ng/mL (0.0-0.045)
[2019-05-14 16:21] LABS: Sodium Level 105 mmol/L (136-145)
--- NOTE | 2019-05-14 16:22 | P.HP ---
Certification for Inpatient Patient admitted to: Inpatient With expected LOS: >2 Midnights Patient will require the following post-hospital care: None Practitioner: I am a practitioner with admitting privileges, knowledge of patient current condition, hospital course, and medical plan of care. Services: Services provided to patient in accordance with Admission requirements found in Title 42 Section 412.3 of the Code of Federal Regulations Patient History Date of Service: 05/14/19 Primary Care Provider: Dr. Zamudio Reason for admission: Nausea, vomiting and abdominal pain History of Present Illness: 73-year-old [place] female presented to the emergency room with nausea, vomiting and abdominal pain. Most of the information came from the who was present as the patient has difficulty with hearing loss. reports that the patient has been having nausea, vomiting and diffuse abdominal pain over the last 3 days. She has not improved. Difficulty with intake has been noted. No fever noted. Patient reports some diarrhea watery this morning. No sick contacts noted. Patient with underlying diabetes, hypertension. Patient had been falling likely from dehydration. In the ER patient evaluated. Vital signs stable. CT head showed no acute findings. CT abdomen revealed dilated small loops of bowel to the mid ileum region likely related to mechanical small bowel obstruction. Due to the patient 's findings the patient was admitted for further evaluation and treatment. When I evaluated in the emergency room, pain was under control. Some nausea noted. reports prior history of cholecystectomy, hysterectomy and a benign tumor removed from the stomach. Allergies ciprofloxacin [From Cipro] Allergy (Verified 05/24/18 09:18) Itching/Hives/Rash Home medications list reviewed: Yes Home Medications: Amlodipine Besylate [Norvasc] 10 mg PO DAILY WITH BREAKFAST 09/01/15 Metformin HCl [Glucophage] 1,000 mg PO BID 09/01/15 glipiZIDE [Glucotrol*] 5 mg PO DAILY 09/01/15 Carvedilol [Coreg*] 25 mg PO BID 02/26/18 Telmisartan 80 mg PO DAILY 02/26/18 Doxazosin Mesylate 1 tab PO BEDTIME 05/24/18 Amox/Clavulanate [Augmentin 500-125 mg Tab] 500 mg PO BID #20 tab 05/26/18 Ondansetron HCl [Zofran] 4 mg PO Q6H PRN #30 tablet 07/17/18 metroNIDAZOLE [Flagyl] 500 mg PO Q8H #30 tablet 05/26/18 - Past Medical/Surgical History Diabetic: Yes -: HTN -: Diabetes mellitus type 2, non insulin dependent -: Chronic Hearing loss -: Hysterectomy -: Cholecystectomy -: [place] cataract sx -: 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 She is . - Family History Mother -: Hypertension, Diabetes Sister -: Hypertension, Diabetes Dad & Mom -: Hypertension, Diabetes - Social History Smoking Status: Never smoker Alcohol use: No CD- Drugs: No Caffeine use: Yes Place of Residence: Home Review of Systems General: Weakness, As per HPI Eyes: Unremarkable ENT: Unremarkable Respiratory: Unremarkable Cardiovascular: Unremarkable Gastrointestinal: Nausea, Vomiting, Abdominal Pain, Diarrhea, As per HPI Genitourinary: Unremarkable Musculoskeletal: Unremarkable Integumentary: Unremarkable Neurological: Unremarkable Lymphatics: Unremarkable Physical Examination - Physical Exam General: Alert, In no apparent distress, Oriented x3, Cooperative HEENT: Atraumatic, Normocephalic, Other (Dry mucous membranes), EOMI Neck: Supple Respiratory: Clear to auscultation bilaterally, Normal air movement Cardiovascular: Normal pulses, Regular rate/rhythm Gastrointestinal: Hypoactive (Throughout), Soft and benign, No masses, No rebound, No guarding, Other (Ventral hernia noted with scar that goes up vertically from the umbilicus to the epigastric region), Distended (Mild distention noted), Tenderness (Minimal tenderness to the abdomen.) Musculoskeletal: No erythema, No tenderness, No warmth Integumentary: No erythema, No warmth, No cyanosis Neurological: Normal speech, Normal strength at 5/5 x4 extr, Normal tone, Normal affect Assessment and Plan - Plan Impression: Nausea, vomiting and diffuse abdominal pain secondary to mechanical small bowel obstruction Dehydration Diarrhea Diabetes mellitus type 2, non-insulin dependent Hypertension Plan: Nausea, vomiting and diffuse abdominal pain secondary to mechanical small bowel obstruction: Patient will be admitted for further evaluation and treatment. ER has consulted surgery to further evaluate. Will discuss with surgery. Continue with antiemetic medication. Will provide medication for pain. Will keep the patient NPO at this time. Patient may require NG tube if with persistent nausea and vomiting and abdominal distention. Await further recommendations from surgery. Will continue to monitor and assess. Patient may require surgical intervention if symptoms worsen. Will start IV fluids. Likely discharge in the next 2-3 days pending clinical improvement. Dehydration: Will start IV fluids. Will monitor and adjust appropriately. Diarrhea: Will obtain C diff cultures and stool cultures to further evaluate. This is likely related to the small bowel obstruction. Diabetes mellitus type 2, non-insulin dependent: Will monitor Accu-Cheks. Will provide sliding scale. Hypertension: Will provide medication as needed. Discharge Plan: Home Plan to discharge in: Greater than 2 days - Advance Directives Does patient have a Living Will: Yes Does patient have a Durable POA for Healthcare: Yes - Code Status/Comfort Care Code Status Assessed: Yes (Patient is full code.) Time Spent Managing Pts Care (In Minutes): 55
[2019-05-14 16:50] LABS: Blood Morphology Comment NOT SEEN (NOT SEEN); Platelet Estimate INCR
[2019-05-14 19:12] LABS: Barbiturates NEGATIVE (NEGATIVE); Benzodiazepines NEGATIVE (NEGATIVE); Cocaine NEGATIVE (NEGATIVE); METHAMPHETAM NEGATIVE (NEGATIVE); Methadone NEGATIVE (NEGATIVE); Opiates NEGATIVE (NEGATIVE); Phencyclidine NEGATIVE (NEGATIVE); THC Cannibis NEGATIVE (NEGATIVE)
[2019-05-14 19:23] LABS: Urine Blood NEGATIVE (NEG); Urine Glucose NEGATIVE (NEG); Urine Protein 1+ (NEG); Urine pH 5.5 (5.0-7.0)
[2019-05-14] MEDS ORDERED: ACETAMINOPHEN 650MG/RECT SUPP RECT PRN (20:06)
[2019-05-14] MEDS ORDERED: ACETAMINOPHEN 500 MG TAB PO PRN (20:06)
[2019-05-14] MEDS ORDERED: NA CHLORIDE 0.9% 1,000 ML IV SCH (20:06)
[2019-05-14] MEDS: INSULIN -REGULAR HUMAN 50 UNIT/0.5 ML ML SQ SCH ×2 (20:06→23:48)
[2019-05-14] MEDS: FAMOTIDINE 20 MG/2 ML VIAL IV SCH (21:11)
[2019-05-14 22:36] LABS: Potassium 3.9 mmol/L (3.5-5.1)
--- NOTE | 2019-05-14 23:29 | CON ---
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 T he information is obtained from her as the patient is difficult to hear as she whispers and s he has poor hearing and is minimally confused. She has been having some abdominal pain, nausea, vomi ting over the past few days and confusion. She has had watery diarrhea as of this morning. No sick contacts. No recent travel. No new food exposures. She was found to be profoundly hyponatremic wit h a sodium of 105 confirmed by lab this morning. Past Medical History: Significant for hypertension, diabetes, chronic hearing loss. 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 Allergies: TO CIPRO. Home Medications: Include Norvasc, Glucophage, Glucotrol, Coreg, telmisartan, doxazosin, Augmentin, Zofran, and Flagyl. Family History: Significant for diabetes. She denies smoking, alcohol, recreational drug use. Review of Systems: Unable to obtain as the patient is confused. Physical Examination: General: At the time of my examination, she is awake, alert, oriented. Psychiatric: She is awake, alert, oriented, and conversive; however, she has poor insight into her p ast medical history and appears somewhat confused at this time. HEENT: Otherwise, she is normocephalic. Her sclerae are anicteric. Mucous membranes are moist. Or opharynx clear. Neck: Supple. No JVD. Chest: Normal expansion and excursion. Cardiovascular: Regular rate and rhythm. Pulmonary: Clear to auscultation bilaterally. Abdomen: Soft, distended. Minimal tenderness globally to palpation, but only to deep palpation. Sh e has positive normal bowel sounds. Well-healed surgical scars were evident. Extremities: No clubbing, cyanosis, or edema. Skin: Warm and dry. Laboratory Data: Laboratory exam reveals a white blood cell count of 27.9, hemoglobin is 11.1, hemat ocrit 32.9, platelet count 461, neutrophils are 93%. Her PT 11.7, INR 0.99. Sodium 108, potassium 4 .0, chloride 71, carbon dioxide 26, BUN 36, creatinine is 0.77, glucose is 181. Her calcium is 7.3, magnesium is 1.8. Total bilirubin 0.7, direct component 0.2, AST 22, ALT 28, and alkaline phosphatas e is 80. ProBNP is 2836. She had imaging performed which included cervical spine, chest, abdomen, p monica, and head CT which was officially read as multiple dilated small bowel in the mid ileum level. This is apparently mechanical small bowel obstruction, may be secondary to adhesions, bowel obstruct ion or internal hernia. No hemorrhage, edema, or acute head findings. Mild atrophy and chronic isch emic changes are present. Cervical spine degenerative changes are present with spinal stenosis and f oraminal encroachment changes. No fracture or acute findings. No significant CT chest findings. No intraabdominal free air. No surgically emergent abdominal or pelvic findings. Assessment And Plan: This is a 73-year-old female who comes in with profound electrolyte abnormaliti es and abdominal symptoms consistent with possible ileus versus partial small bowel obstruction. 1.IV fluid hydration per media services specialist to correct her electrolyte disturbance, to be corrected slowly to prevent central pontine myelinolysis. 2.Continue further electrolyte correction per primary medical team and Dr. King, the nephrologi st. 3.Serial abdominal exams. I do not find that the patient has a surgically emergent abdomen at this time and has minimal tenderness and continues to have bowel function. As such, I recommend medical m anagement prior to consideration of any surgical intervention. I do recommend placing an NG tube at this time and serial abdominal exams. However, I have explained the risks, benefits, and alternative s of the above-stated plan to the patient's who agrees to proceed as indicated. Thank you for this interesting consult. RUBEN/FAUSTO Voice ID: [id number] Report ID: [id number]
[2019-05-15 05:22] LABS: Absolute Lymphocytes (CBC) 1.2 K/uL (0.7-4.9); Basophils % 0.1 % (0-1.3); Hematocrit 29.4 % (36.0-45.0); Lymphocytes % 5.4 % (15.3-44.8); MPV 7.9 fL (7.6-11.3); RBC Red Blood Cell Count 3.66 M/uL (3.86-4.86)
[2019-05-15 05:41] LABS: Magnesium 1.8 mg/dL (1.8-2.4); Potassium 3.7 mmol/L (3.5-5.1)
[2019-05-15 05:54] LABS: Thyroid Stimulating Hormone 2.06 uIU/mL (0.360-3.740); Uric Acid 8.3 mg/dL (2.6-6.0)
[2019-05-15] MEDS ORDERED: KCL 20 MEQ/100 mL IVPB 20 MEQ/100 ML BAG IV SCH (06:00)
[2019-05-15] MEDS: INSULIN -REGULAR HUMAN 50 UNIT/0.5 ML ML SQ SCH ×4 (06:00→23:39)
[2019-05-15] MEDS ORDERED: D5 0.9 NS 1,000 ML IV SCH ×2 (07:00→23:45)
[2019-05-15] MEDS ORDERED: MAGNESIUM SULFATE 1 gm IVPB 1 GM/100 ML BAG IV ONE (08:00)
[2019-05-15] MEDS: FAMOTIDINE 20 MG/2 ML VIAL IV SCH ×2 (08:02→21:13)
--- NOTE | 2019-05-15 08:42 | P.PN ---
Subjective Date of Service: 05/15/19 Primary Care Provider: Dr. Zamudio Chief Complaint: Nausea, vomiting and abdominal pain Subjective: Other (Patient feels better. No significant abdominal pain. No passage of gas or stool noted. NG tube in place. Patient with AFib, rate controlled) Physical Examination - Vital Signs Temperature: 97.5 F Blood Pressure: 117/89 Pulse: 75 Respirations: 15 Pulse Ox (%): 98 - Physical Exam General: Alert, In no apparent distress, Oriented x3, Cooperative HEENT: Atraumatic Neck: Supple Respiratory: Clear to auscultation bilaterally, Normal air movement Cardiovascular: Irregular heart rate/rhythm (Atrial fibrillation, rate controlled) Gastrointestinal: Hypoactive, No tenderness, No masses, No rebound, No guarding , Distended (mild distension) Musculoskeletal: No erythema, No tenderness, No warmth Integumentary: No tenderness/swelling, No erythema, No warmth, No cyanosis Neurological: Normal speech, Normal strength at 5/5 x4 extr, Normal tone, Normal affect - Studies Laboratory Data (last 24 hrs) 05/14/19 15:45: PT 11.7, INR 0.99 05/14/19 15:45: WBC 27.9 H* D, Hgb 11.1 L, Hct 32.9 L, Plt Count 461 H 05/14/19 15:45: Sodium 105 L* D, Potassium 4.3, BUN 38 H D, Creatinine 0.85, Glucose 205 H, Magnesium 1.8, Total Bilirubin 0.7, AST 22, ALT 28, Alkaline Phosphatase 80 Medications List Reviewed: Yes Assessment & Plan Discharge Plan: Home Plan to discharge in: Greater than 2 days Physician Review Additional Text: Impression: Nausea, vomiting, diarrhea and diffuse abdominal pain secondary to mechanical small bowel obstruction vs ileus Severe hyponatremia with Dehydration Atrial fibrillation, chronic verses acute Diabetes mellitus type 2, non-insulin dependent Hypertension Anemia likely of chronic disease. Plan: Nausea, vomiting, diarrhea and diffuse abdominal pain secondary to mechanical small bowel obstruction vs ileus: Patient stable this time. NG tube in place. Patient with severe hyponatremia. This has slightly improved. Nephrology monitoring and adjusting IV fluids. Surgery to reassess patient. Patient likely with underlying ileus versus mechanical bought obstruction. Will start Zosyn IV. Continue NG tube. Will have Cardiology assess patient for Atrial fibrillation. Will adjust Lovenox to 1 mg/kg sc BID. Atrial fibrillation may be chronic versus acute. Rate controlled. Will continue monitor and assess. Severe hyponatremia with Dehydration: Nephrology consulted. Nephrology adjusting IV fluids. Sodium slightly improved. Continue to monitor closely. Atrial fibrillation, chronic verses acute: Will adjust Lovenox to 1 milligram/ kilogram subcu twice daily. Will consult cardiology to further evaluate. Atrial fibrillation likely chronic versus acute. Patient has seen and follow up Cardiology in the past. Await further recommendations. Diarrhea: Will obtain C diff cultures and stool cultures to further evaluate. This is likely related to the small bowel obstruction versus ileus. Diabetes mellitus type 2, non-insulin dependent: Will monitor Accu-Cheks. Will provide sliding scale. Hypertension: Will provide medication as needed. Anemia likely of chronic disease: Will check iron and B12 studies. Time Spent Managing Pts Care (In Minutes): 55
[2019-05-15] MEDS ORDERED: NA CHLORIDE 0.9% 1,000 ML IV SCH ×2 (09:00→12:00)
[2019-05-15] MEDS ORDERED: ENOXAPARIN 40 MG/0.4 ML SQ SCH (09:00)
[2019-05-15] MEDS ORDERED: LORazepam 2 MG/ML VIAL IV PRN (09:48)
--- NOTE | 2019-05-15 09:50 | P.PN ---
Subjective Date of Service: 05/15/19 Primary Care Provider: Dr. Zamudio Chief Complaint: Nausea, vomiting and abdominal pain Subjective: No new changes (Patient has no abdominal pain, had 3 soft BM yesterday.) Physical Examination - Vital Signs Temperature: 97.5 F Blood Pressure: 149/62 Pulse: 74 Respirations: 13 Pulse Ox (%): 98 - Physical Exam General: Alert, Cooperative Gastrointestinal: Soft and benign, No ascites, No tenderness, No masses, No rebound, No guarding, Other (mild distention) - Studies Laboratory Data (last 24 hrs) 05/14/19 15:45: PT 11.7, INR 0.99 05/14/19 15:45: WBC 27.9 H* D, Hgb 11.1 L, Hct 32.9 L, Plt Count 461 H 05/14/19 15:45: Sodium 105 L* D, Potassium 4.3, BUN 38 H D, Creatinine 0.85, Glucose 205 H, Magnesium 1.8, Total Bilirubin 0.7, AST 22, ALT 28, Alkaline Phosphatase 80 Medications List Reviewed: Yes Assessment And Plan - Current Problems (Diagnosis) (1) Ileus Current Visit: Yes Status: Acute Plan: Patient likely has ileus given her profound electrolyte abnormalities, and has + ETOH, likely contributing to her overall clinical picture - continue serial exams - slow electrolyte correction per ice cream dispenser - new onset A-fib on anticoagulation - await Dr. Sydnee leal - continue medical management per Dr. Marks Physician Review Additional Text: Impression: Nausea, vomiting, diarrhea and diffuse abdominal pain secondary to mechanical small bowel obstruction vs ileus Severe hyponatremia with Dehydration Atrial fibrillation, chronic verses acute Diabetes mellitus type 2, non-insulin dependent Hypertension Anemia likely of chronic disease. Plan: Nausea, vomiting, diarrhea and diffuse abdominal pain secondary to mechanical small bowel obstruction vs ileus: Patient stable this time. NG tube in place. Patient with severe hyponatremia. This has slightly improved. Nephrology monitoring and adjusting IV fluids. Surgery to reassess patient. Patient likely with underlying ileus versus mechanical bought obstruction. Will start Zosyn IV. Continue NG tube. Will have Cardiology assess patient for Atrial fibrillation. Will adjust Lovenox to 1 mg/kg sc BID. Atrial fibrillation may be chronic versus acute. Rate controlled. Will continue monitor and assess. Severe hyponatremia with Dehydration: Nephrology consulted. Nephrology adjusting IV fluids. Sodium slightly improved. Continue to monitor closely. Atrial fibrillation, chronic verses acute: Will adjust Lovenox to 1 milligram/ kilogram subcu twice daily. Will consult cardiology to further evaluate. Atrial fibrillation likely chronic versus acute. Patient has seen and follow up Cardiology in the past. Await further recommendations. Diarrhea: Will obtain C diff cultures and stool cultures to further evaluate. This is likely related to the small bowel obstruction versus ileus. Diabetes mellitus type 2, non-insulin dependent: Will monitor Accu-Cheks. Will provide sliding scale. Hypertension: Will provide medication as needed. Anemia likely of chronic disease: Will check iron and B12 studies.
[2019-05-15] MEDS: PIPER/TAZO/NS 3.375gm 3.375 GM/100 ML BAG IVPB SCH ×2 (09:59→17:35)
[2019-05-15 10:45] LABS: Potassium 4.3 mmol/L (3.5-5.1)
[2019-05-15] MEDS: D5 0.9 NS 1,000 ML IV SCH ×2 (11:00→21:15)
[2019-05-15] MEDS: HYDROMORPHONE HCL 0.5 MG/0.5 ML INJ IV PRN (15:24)
[2019-05-15] MEDS: NA CHLORIDE 0.9% 1,000 ML IV SCH (19:00)
[2019-05-15] MEDS ORDERED: SODIUM PHOSPHATE 15 MM in NA CHLORIDE 0.9% 250 ML IV ONE (20:00)
[2019-05-15] MEDS: ENOXAPARIN 60 MG/0.6 ML SQ SCH (21:13)
[2019-05-15 22:08] LABS: Potassium 3.9 mmol/L (3.5-5.1)
--- NOTE | 2019-05-16 00:05 | CON ---
Date of Consultation: 05/15/2019 Chief Complaint: Hyponatremia, hypoosmolar. 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 The patient came to the hospital [facility] of generalized weakness, nausea, vomiting, abdominal pain. Currently she cannot provide review of system and does not recall recent events from the past and is not a good historian. According to her , the patient was having nausea, vomiting and diffuse abdominal pain over last 3 days prior t o admission. The patient's condition has worsened. She was having progressively worse vomiting. e denies melena, hematemesis. She had difficulty with ambulation. She did not have fever. Prior to that she had 1 episode of diarrhea, but not bloody. The patient was feeling weak and progressively getting to dehydration. The patient came to the hospital, was found to have bowel obstruction. CT scan of the abdomen and pe lvis was done and showed dilated small loops of bowel with midileum region related to mechanical smal l bowel obstruction. CT scan of the head did not show acute finding. Chemistry, labs were obtained and showed severe hyponatremia. Sodium level was 105. The patient is somewhat confused, although e follow commands and she denies any new symptoms at this point. Review of Systems: Unobtainable. The patient denies discomfort. 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 Family History: Mother hypertension, diabetes. Sister diabetes, hypertension and both parents hyper tension, diabetes. Social History: Denies tobacco, alcohol, illicit drugs. Physical Examination: General: The patient is not in acute distress, oriented x2, follows commands. Eyes: Anicteric sclerae. EOMI. Ears, Nose, Mouth, and Throat: Oral mucosa moist. No pallor. Neck: Supple. No bruits. Lungs: Clear to auscultation bilaterally. No wheezing. No rhonchi. Heart: S1, S2. No pericardial friction rub. Abdomen: Diminished bowel sounds. No rebound. Extremities: No edema. No clubbing. No cyanosis. Skin: Warm and dry. No skin rashes. Neurological: Moving extremities. Cranial nerves intact. Psychiatric: The patient is awake, follows commands. Oriented x2. Lab Work: Sodium 105, potassium 4.3, chloride 67, CO2 25, BUN 38, creatinine 0.85, glucose 205, calc ium 7.7, phosphorus is pending, magnesium 1.8. Urine: Total protein 1+, random sodium less than 5, osmolality 633, urine potassium 15, and sodium less than 5. Urine osmolality 572. Impression And Plan: 1.Severe hyponatremia with prerenal azotemia, depletional hyponatremia secondary to poor p.o. intake . The patient will continue normal saline for mild hydration and replace electrolytes. The patient has severe hyponatremia, which partially is chronic. The patient has had symptoms over last several days and the patient is somewhat disoriented, although she follows commands and denies complaints. S he does not have severe mental status changes. She denies nausea at this point. 2.The patient has small bowel obstruction and the patient will have management by Surgical team and surgical consultation was obtained. 3.Hyponatremia, severe. Continue normal saline, monitor electrolytes every 6-8 hours. 4.Diabetes mellitus. The patient is not a candidate for metformin due to risk of acute kidney injur y with prerenal azotemia secondary to volume depletion and lactic acidosis. 5.Hypertension. Avoid NETTIE inhibitor. 6.Monitor blood pressure and adjust medication as needed. 7.Small bowel obstruction versus ileus. Monitor for abdominal pathology. The patient had a CT scan without contrast. There is no hemorrhage, no edema or acute findings related to hernia. Continue d aily electrolyte monitoring with series of electrolytes to control severe hyponatremia and adjust IV fluids as needed. Avoid diuretics and avoid nonsteroidal anti-inflammatory medication. The patient is not a candidate for hydrochlorothiazide because of risk of worsening of severe hyponatremia. EB/MODL Voice ID: [id number] Report ID: [id number]
[2019-05-16] MEDS: PIPER/TAZO/NS 3.375gm 3.375 GM/100 ML BAG IVPB SCH ×3 (00:53→16:33)
[2019-05-16] MEDS ORDERED: ALBUTEROL 2.5 MG/3 ML NEB SOL NEB ONE (01:09)
[2019-05-16] MEDS ORDERED: IPRATROPIUM BROM 0.5MG/2.5ML NEB ONE (01:09)
[2019-05-16] MEDS: INSULIN -REGULAR HUMAN 50 UNIT/0.5 ML ML SQ SCH ×3 (06:07→18:28)
[2019-05-16 06:34] LABS: Magnesium 2.3 mg/dL (1.8-2.4); Phosphorus 1.6 mg/dL (2.5-4.9); Potassium 3.6 mmol/L (3.5-5.1)
[2019-05-16 06:42] LABS: Absolute Lymphocytes (CBC) 0.7 K/uL (0.7-4.9); Basophils % 0.1 % (0-1.3); Hematocrit 29.5 % (36.0-45.0); Lymphocytes % 4.8 % (15.3-44.8); MPV 8.4 fL (7.6-11.3); RBC Red Blood Cell Count 3.58 M/uL (3.86-4.86)
--- NOTE | 2019-05-16 08:28 | P.PN ---
Subjective Date of Service: 05/16/19 Primary Care Provider: Dr. Zamudio Chief Complaint: Nausea, vomiting and abdominal pain Subjective: Other (Patient stable this time. No BM noted. NG tube in place. Abdominal pain improved. Patient and report no recent use of alcohol.) Physical Examination - Vital Signs Temperature: 97 F Blood Pressure: 158/69 Pulse: 68 Respirations: 13 Pulse Ox (%): 99 - Physical Exam General: Alert, In no apparent distress, Oriented x3, Cooperative HEENT: Atraumatic Neck: Supple Respiratory: Clear to auscultation bilaterally, Normal air movement Cardiovascular: Irregular heart rate/rhythm (Atrial fibrillation, rate controlled) Gastrointestinal: Hypoactive, Soft and benign, No masses, No rebound, No guarding, Distended (Mild distension), Tenderness (Mild tenderness to the abdomen with palpation) Integumentary: No tenderness/swelling, No erythema, No warmth, No cyanosis Neurological: Normal speech, Normal strength at 5/5 x4 extr, Normal tone, Normal affect - Studies Medications List Reviewed: Yes Assessment & Plan Discharge Plan: Home Plan to discharge in: Greater than 2 days Physician Review Additional Text: Impression: Nausea, vomiting, diarrhea and diffuse abdominal pain likely secondary to ileus Severe hyponatremia with Dehydration Atrial fibrillation, chronic not on chronic anticoagulation therapy Diabetes mellitus type 2, non-insulin dependent Hypertension Anemia likely of chronic disease Elevated alcohol level without history of significant alcohol use Plan: Nausea, vomiting, diarrhea and diffuse abdominal pain likely secondary to ileus : Patient stable this time. Slow improvement noted. NG tube in place. Nephrology adjusting IV fluids for her hyponatremia. Sodium slowly improving. Patient remains on IV antibiotic therapy. Cultures pending at this time. Patient with history of chronic atrial fibrillation. Patient on anticoagulations therapy at this time. Weight is controlled. Await further recommendations from cardiology. Continue to monitor closely. Will discuss with surgery Severe hyponatremia with Dehydration: Nephrology continues to adjust IV fluids. Sodium level improved. Continue to monitor and adjust fluid. Atrial fibrillation, chronic not on chronic anticoagulation therapy: Patient on the Lovenox at 1 milligram/kilograms subcu twice daily. Patient with chronic atrial fibrillation, rate controlled at this time. Await further recommendations from cardiology. Diarrhea: Will obtain C diff cultures and stool cultures to further evaluate. This is likely related to ileus. Diabetes mellitus type 2, non-insulin dependent: Will monitor Accu-Cheks. Will provide sliding scale. Hypertension: Will provide medication as needed. Anemia likely of chronic disease: Will check iron and B12 studies. Hemoglobin remained stable. Elevated alcohol level without history of significant alcohol use: reports no recent alcohol use. Alcohol level was elevated upon admission. Will recheck alcohol level. Time Spent Managing Pts Care (In Minutes): 55
--- NOTE | 2019-05-16 08:45 | EKG ---
Test Date: 2019-05-15 Test Time: 08:55:50 Jail Officer: SAM MEASUREMENT RESULTS: Intervals: Rate: 76 [place]: QRSD: 88 QT: 414 QTc: 465 [place]: P: [place]: QRS: 60 T: 63 INTERPRETIVE STATEMENTS: Atrial fibrillation Abnormal ECG Compared to ECG 05/10/2019 13:07:05 T-wave abnormality no longer present Possible ischemia no longer present Electronically Signed On 05-16-19 08:42:35 CDT by Ez Burks
[2019-05-16] MEDS: FAMOTIDINE 20 MG/2 ML VIAL IV SCH ×2 (08:48→20:28)
[2019-05-16] MEDS: HYDROMORPHONE HCL 0.5 MG/0.5 ML INJ IV PRN ×2 (08:49→20:28)
[2019-05-16] MEDS: ENOXAPARIN 60 MG/0.6 ML SQ SCH ×2 (08:49→20:27)
[2019-05-16] MEDS ORDERED: D5W 1,000 ML IV SCH ×2 (09:00→13:00)
[2019-05-16] MEDS ORDERED: D5 0.45 NS 1,000 ML IV SCH (09:00)
--- NOTE | 2019-05-16 10:28 | P.PN ---
Subjective Date of Service: 05/16/19 Primary Care Provider: Dr. Zamudio Chief Complaint: Nausea, vomiting and abdominal pain Subjective: Improving Physical Examination - Vital Signs Temperature: 97 F Blood Pressure: 152/74 Pulse: 63 Respirations: 11 Pulse Ox (%): 99 - Physical Exam General: Alert, In no apparent distress, Cooperative Gastrointestinal: Soft and benign, Non-distended, No ascites, No tenderness, No masses, No rebound, No guarding - Studies Medications List Reviewed: Yes Assessment And Plan - Current Problems (Diagnosis) (1) Ileus Current Visit: Yes Status: Acute Plan: Patient likely has ileus given her profound electrolyte abnormalities, and has + ETOH, likely contributing to her overall clinical picture - continue serial exams - slow electrolyte correction per roadway designer - new onset A-fib on anticoagulation - await Dr. Sydnee leal - continue medical management per Dr. Marks Physician Review Additional Text: Impression: Nausea, vomiting, diarrhea and diffuse abdominal pain likely secondary to ileus Severe hyponatremia with Dehydration Atrial fibrillation, chronic not on chronic anticoagulation therapy Diabetes mellitus type 2, non-insulin dependent Hypertension Anemia likely of chronic disease Elevated alcohol level without history of significant alcohol use Plan: Nausea, vomiting, diarrhea and diffuse abdominal pain likely secondary to ileus : Patient stable this time. Slow improvement noted. NG tube in place. Nephrology adjusting IV fluids for her hyponatremia. Sodium slowly improving. Patient remains on IV antibiotic therapy. Cultures pending at this time. Patient with history of chronic atrial fibrillation. Patient on anticoagulations therapy at this time. Weight is controlled. Await further recommendations from cardiology. Continue to monitor closely. Will discuss with surgery Severe hyponatremia with Dehydration: Nephrology continues to adjust IV fluids. Sodium level improved. Continue to monitor and adjust fluid. Atrial fibrillation, chronic not on chronic anticoagulation therapy: Patient on the Lovenox at 1 milligram/kilograms subcu twice daily. Patient with chronic atrial fibrillation, rate controlled at this time. Await further recommendations from cardiology. Diarrhea: Will obtain C diff cultures and stool cultures to further evaluate. This is likely related to ileus. Diabetes mellitus type 2, non-insulin dependent: Will monitor Accu-Cheks. Will provide sliding scale. Hypertension: Will provide medication as needed. Anemia likely of chronic disease: Will check iron and B12 studies. Hemoglobin remained stable. Elevated alcohol level without history of significant alcohol use: reports no recent alcohol use. Alcohol level was elevated upon admission. Will recheck alcohol level.
[2019-05-16 11:59] LABS: Potassium 3.6 mmol/L (3.5-5.1)
--- NOTE | 2019-05-16 15:12 | PN ---
Date of Progress Note: 05/16/2019 Subjective: Ms. Lee was admitted on 05/14/2019 and seen on 05/15/2019 by me for chronic atrial fi brillation. The patient continues to be asymptomatic from a cardiovascular standpoint. She has atri al fibrillation in the rate of 80s. Denied any chest pain. She had come in with a small bowel obstr uction that is improving. She has some faint bowel sounds on her abdominal exam. Her sodium which w as 108 is now 119. She is getting slight hydration with normal saline as well as D5W by Nephrology. An echocardiogram is pending on 05/17/2019. She will eventually need to be anticoagulated. We will continue to follow her. Her electrolytes have improved. BROOKS/FAUSTO Voice ID: [id number] Report ID: [id number]
--- NOTE | 2019-05-16 15:21 | CON ---
The patient was admitted on 05/14/[address] Marks's service. I saw the patient on 05/15/2019. Reason For Consultation: Atrial fibrillation. History Of Present Illness: Ms. Lee is a 73-year-old woman without any previous cardiac his tory. She came in with confusion, head injury, was found to have a small bowel obstruction with very abnormal labs including a sodium of 108, chloride of 71, white count of 28,000. She had a glucose o f 185. Her Mag was 1.8. Potassium was 4.3. Her BNP was 2836. She did not have any cardiac symptom s, but was found to be in atrial fibrillation of unknown duration. Heart rate was in the 70s. She d enied PND, orthopnea, pedal edema, palpitations. Denied any chest pain. Has had nausea and vomiting secondary to a small bowel obstruction. Allergies: SHE IS ALLERGIC TO CIPROFLOXACIN. Past Medical History: Includes diabetes and hypertension. Medications: Include Norvasc, Coreg, metformin, Glucotrol, and telmisartan. Physical Examination: Vital Signs: Stable. She was afebrile. She was in atrial fibrillation, rate of 70. HEENT: Negative. Neck: Supple without any bruit. Chest: Clear. Cardiac: Revealed atrial fibrillation. No murmurs, gallops, or rubs. Abdomen: Benign. Extremities: Revealed no clubbing, cyanosis, or edema. Diagnostic Data: As stated earlier. Impression And Plan: Atrial fibrillation, most likely chronic, rate controlled. No symptoms. I thi nk an echocardiogram is necessary and that is ordered. I think her electrolytes obviously needs to b e corrected. She is being hydrated. She has a nasogastric tube for her small bowel obstruction. No definitive plan for surgery at this point. I think she needs to be on Lovenox. I think when she go es home, she needs to be on long-term anticoagulation therapy with Eliquis or Xarelto. She will prob ably eventually need a stress test as an outpatient. I certainly would not be concerned about doing any cardioversions at this point. Her other problems including confusion and head injury are seconda ry to presyncope from her dehydration. She has a white count of 28,000 and sodium 108, and chloride of 71. Nephrology is following. Her diabetes is fairly well controlled. Her blood pressure is fair ly well controlled. We will see what her echo shows and continue to follow. BROOKS/FAUSTO Voice ID: [id number] Report ID: [id number]
[2019-05-16 18:40] LABS: Potassium 3.7 mmol/L (3.5-5.1)
[2019-05-16] MEDS: D5W 1,000 ML IV SCH (19:00)
[2019-05-16] MEDS: NA CHLORIDE 0.9% 1,000 ML IV SCH (20:00)
[2019-05-16 22:20] LABS: Potassium 3.6 mmol/L (3.5-5.1)
[2019-05-17] MEDS: PIPER/TAZO/NS 3.375gm 3.375 GM/100 ML BAG IVPB SCH ×3 (00:04→17:22)
[2019-05-17] MEDS: HYDROMORPHONE HCL 0.5 MG/0.5 ML INJ IV PRN ×3 (00:05→14:51)
[2019-05-17] MEDS: INSULIN -REGULAR HUMAN 50 UNIT/0.5 ML ML SQ SCH ×4 (00:05→17:54)
--- NOTE | 2019-05-17 01:13 | PN ---
Date of Progress Note: 05/16/2019 Chief Complaint: Hyponatremia, hypoosmolar. History Of Present Illness: The patient was found to have severe hyponatremia when she came to the hospital with generalized weakness, nausea, vomiting, and abdominal pain. She was found to have small bowel obstruction. Is admitted to ICU. She is started on antibiotics for severe sepsis. Leukocytosis was up to 27,900. The patient was found to have severe hyponatremia, chronic, without mental status changes, although she was slightly lethargic but she was coherent. Sodium level was 105 and patient was started on normal saline infusion. Subsequently, she was switched to D5W to obtain gradual correction of hyponatremia over the last 48 hours. Sodium level this morning was 115. The patient was started on D5W and rate was increased to 150 cc/hour. Review of Systems: Denies fever, chills. Denies nausea, vomiting. Physical Examination: Lungs: Clear to auscultation bilaterally. Heart: S1, S2. Abdomen: Soft, benign, nontender. Extremities: No edema. Lab Work: Sodium 122, potassium 3.7, chloride 87, CO2 of 29, BUN is 9, creatinine 0.77, glucose 230, and calcium 7.6. Impression And Plan: 1. Hyponatremia, hypoosmolar. Plan is to monitor electrolytes. Adjust rate of IV fluids. At this point, the patient will continue D5W to obtain gradual correction of hyponatremia. Normal saline was discontinued. 2. Hypokalemia, mild. The patient at this point has normal potassium levels, 3.6 and 3.7. 3. Hypophosphatemia, mild. Plan is to replace phosphorus if phosphorus is below 1.2. 4. Small bowel obstruction per surgical team. 5. Hypertension, blood pressure controlled. 6. Diabetes mellitus. Continue insulin. I spent total 36 min including 26 min to coordinate care plan. GUILLERMINA/FAUSTO Voice ID: [id number] Report ID: [id number] BRIAN
[2019-05-17] MEDS: D5W 1,000 ML IV SCH ×2 (04:48→11:00)
[2019-05-17] MEDS ORDERED: IPRATROPIUM BROM 0.5MG/2.5ML NEB ONE (05:00)
[2019-05-17] MEDS ORDERED: ALBUTEROL 2.5 MG/3 ML NEB SOL NEB ONE (05:00)
[2019-05-17 06:00] LABS: Absolute Lymphocytes (CBC) 0.4 K/uL (0.7-4.9); Basophils % 0.1 % (0-1.3); Lymphocytes % 2.2 % (15.3-44.8); MPV 8.1 fL (7.6-11.3); RBC Red Blood Cell Count 3.89 M/uL (3.86-4.86)
[2019-05-17 06:01] LABS: Potassium 3.7 mmol/L (3.5-5.1)
[2019-05-17 07:18] LABS: Blood Morphology Comment NOT SEEN (NOT SEEN); Platelet Estimate ADEQ
[2019-05-17] MEDS ORDERED: POTASSIUM PHOS IN 0.9 % NACL 15 MMOL/250 ML BAG IV ONE (07:25)
[2019-05-17] MEDS: ENOXAPARIN 60 MG/0.6 ML SQ SCH ×2 (09:31→22:42)
[2019-05-17] MEDS: FAMOTIDINE 20 MG/2 ML VIAL IV SCH ×2 (09:31→22:43)
--- NOTE | 2019-05-17 11:58 | RAD REPORT ---
EXAM DESCRIPTION: RAD - Chest Single View - 05/15/2019 9:54 pm CLINICAL HISTORY: Shortness of breath ,coughing. COMPARISON: 05/14/2019 FINDINGS: Mildly enlarged heart size, stable. No consolidation, pleural effusion, or pneumothorax is seen. There are no acute bony findings. There is a new nasogastric tube with the side-port and tip o verlying the stomach. IMPRESSION: 1. No evidence of acute cardiopulmonary disease. 2. Nasogastric tube in appropriate position. Electronically signed by: Gualberto Smalls MD 05/15/2019 10:06 PM CDT Due to temporary technical issues with the PACS/Fluency reporting system, reports are being signed by the in house radiologist as a courtesy to ensure prompt reporting. The interpreting radiologist is f ully responsible for the content of the report.
[2019-05-17] MEDS ORDERED: D5 0.45 NS 1,000 ML IV SCH (12:00)
--- NOTE | 2019-05-17 13:18 | P.PN ---
Subjective Date of Service: 05/17/19 Primary Care Provider: Dr. Zamudio Chief Complaint: Nausea, vomiting and abdominal pain Subjective: Improving Physical Examination - Vital Signs Temperature: 98.6 F Blood Pressure: 169/72 Pulse: 94 Respirations: 25 Pulse Ox (%): 99 - Physical Exam General: Alert, In no apparent distress, Cooperative Gastrointestinal: Soft and benign, Non-distended, No ascites, No tenderness, No masses, No rebound, No guarding - Studies Medications List Reviewed: Yes Assessment And Plan - Current Problems (Diagnosis) (1) Ileus Current Visit: Yes Status: Acute Plan: Patient likely has ileus given her profound electrolyte abnormalities, and has + ETOH, likely contributing to her overall clinical picture - continue serial exams - slow electrolyte correction per musculoskeletal physiotherapist - new onset A-fib on anticoagulation - await Dr. Sydnee leal - continue medical management per Dr. Marks Physician Review Additional Text: Impression: Nausea, vomiting, diarrhea and diffuse abdominal pain likely secondary to ileus Severe hyponatremia with Dehydration Atrial fibrillation, chronic not on chronic anticoagulation therapy Diabetes mellitus type 2, non-insulin dependent Hypertension Anemia likely of chronic disease Elevated alcohol level without history of significant alcohol use Plan: Nausea, vomiting, diarrhea and diffuse abdominal pain likely secondary to ileus : Patient stable this time. Slow improvement noted. NG tube in place. Nephrology adjusting IV fluids for her hyponatremia. Sodium slowly improving. Patient remains on IV antibiotic therapy. Cultures pending at this time. Patient with history of chronic atrial fibrillation. Patient on anticoagulations therapy at this time. Weight is controlled. Await further recommendations from cardiology. Continue to monitor closely. Will discuss with surgery Severe hyponatremia with Dehydration: Nephrology continues to adjust IV fluids. Sodium level improved. Continue to monitor and adjust fluid. Atrial fibrillation, chronic not on chronic anticoagulation therapy: Patient on the Lovenox at 1 milligram/kilograms subcu twice daily. Patient with chronic atrial fibrillation, rate controlled at this time. Await further recommendations from cardiology. Diarrhea: Will obtain C diff cultures and stool cultures to further evaluate. This is likely related to ileus. Diabetes mellitus type 2, non-insulin dependent: Will monitor Accu-Cheks. Will provide sliding scale. Hypertension: Will provide medication as needed. Anemia likely of chronic disease: Will check iron and B12 studies. Hemoglobin remained stable. Elevated alcohol level without history of significant alcohol use: reports no recent alcohol use. Alcohol level was elevated upon admission. Will recheck alcohol level.
[2019-05-17] MEDS: D5 0.9 NS 1,000 ML IV SCH (13:28)
--- NOTE | 2019-05-17 13:39 | ECHO ---
HEIGHT: 5 ft 1 in WEIGHT: 139 lb 0 oz DATE OF STUDY: 05/17/[address]: Marylou Cooper MD 2-DIMENSIONAL: YES M.MODE: YES DOPPLER: YES COLOR FLOW: YES TDS: NO PORTABLE: YES DEFINITY: NO BUBBLE STUDY: NO DIAGNOSIS: ELEVATED TROPONIN CARDIAC HISTORY: CATHERIZATION: NO SURGERY: NO PROSTHETIC VALVE: NO PACEMAKER: NO MEASUREMENTS (cm) DIASTOLIC (NORMALS) SYSTOLIC (NORMALS) IVSd 1.3 (0.6-1.2) LA Diam 4.3 (1.9-4.0) LVEF 86% LVIDd 3.6 (3.5-5.7) LVIDs 1.6 (2.0-3.5) %FS 54% LVPWd 1.4 (0.6-1.2) Ao Diam 2.4 (2.0-3.7) 2 DIMENSIONAL ASSESSMENT: RIGHT ATRIUM: NORMAL LEFT ATRIUM: DILATED RIGHT VENTRICLE: NORMAL LEFT VENTRICLE: LEFT VENTRICULAR HYPERTROPHY TRICUSPID VALVE: NORMAL MITRAL VALVE: NORMAL PULMONIC VALVE: NORMAL AORTIC VALVE: NORMAL PERICARDIAL EFFUSION: NONE AORTIC ROOT: NORMAL LEFT VENTRICULAR WALL MOTION: NORMAL. DOPPLER/COLOR FLOW: NORMAL. COMMENTS: NORMAL LEFT VENTRICULAR EJECTION FRACTION. LEFT ATRIAL ENLARGEMENT. LEFT VENTRICULAR HYPERTROPHY. NO THROMBUS. TECHNOLOGIST: CHING OLIVER
--- NOTE | 2019-05-17 16:16 | P.PN ---
Subjective Date of Service: 05/17/19 Primary Care Provider: Dr. Zamudio Chief Complaint: Nausea, vomiting and abdominal pain Subjective: Other (Overall stable. Some nausea this a.m..) Physical Examination - Vital Signs Temperature: 98.6 F Blood Pressure: 169/72 Pulse: 94 Respirations: 25 Pulse Ox (%): 99 - Physical Exam General: Alert, In no apparent distress, Oriented x3, Cooperative HEENT: Atraumatic Neck: Supple Respiratory: Clear to auscultation bilaterally, Normal air movement Cardiovascular: Irregular heart rate/rhythm (Atrial fibrillation, rate controlled) Gastrointestinal: Normal bowel sounds, Soft and benign, No tenderness, No masses , No rebound, Distended (Less distention today compared to previous.) Neurological: Normal speech, Normal strength at 5/5 x4 extr, Normal tone, Normal affect - Studies Medications List Reviewed: Yes Assessment & Plan Discharge Plan: Home Plan to discharge in: Greater than 2 days Physician Review Additional Text: Impression: Nausea, vomiting, diarrhea and diffuse abdominal pain likely secondary to ileus Severe hyponatremia with Dehydration Atrial fibrillation, chronic not on chronic anticoagulation therapy Diabetes mellitus type 2, non-insulin dependent Hypertension Anemia likely of chronic disease with iron deficiency Elevated alcohol level without history of significant alcohol use Plan: Nausea, vomiting, diarrhea and diffuse abdominal pain likely secondary to ileus : Patient slowly improving. Sodium also slightly improved. Continue IV antibiotic therapy. Patient remains NPO. NG tube in place. Will discuss with surgery. So far no intervention required. Spoke with Cardiology. Continue anti coagulation therapy. Patient will require anti coagulation therapy at discharge. Continue to monitor electrolytes. Severe hyponatremia with Dehydration: Nephrology continues to adjust IV fluids. Sodium level improved. Continue to monitor and adjust fluid. Atrial fibrillation, chronic not on chronic anticoagulation therapy: Patient on the Lovenox at 1 milligram/kilograms subcu twice daily. Patient with chronic atrial fibrillation, rate controlled at this time. Cardiology recommends to continue chronic anti coagulation therapy. Diarrhea: So far cultures negative. This is likely related to ileus. Diabetes mellitus type 2, non-insulin dependent: Will monitor Accu-Cheks. Will provide sliding scale. Hypertension: Will provide medication as needed. Anemia likely of chronic disease with iron deficiency: Iron level decrease. Patient will require iron. Hemoglobin remained stable. Elevated alcohol level without history of significant alcohol use: reports no recent alcohol use. Alcohol level was elevated upon admission. Recheck alcohol level negative. Time Spent Managing Pts Care (In Minutes): 55
[2019-05-17 17:30] LABS: Phosphorus 2.1 mg/dL (2.5-4.9); Potassium 3.8 mmol/L (3.5-5.1)
[2019-05-17] MEDS ORDERED: CALCIUM GLUC 10% INJ 4.65 MEQ in NA CHLORIDE 0.9% 100 ML IV ONE (19:10)
[2019-05-17 22:45] LABS: Magnesium 1.8 mg/dL (1.8-2.4); Phosphorus 1.9 mg/dL (2.5-4.9); Potassium 3.6 mmol/L (3.5-5.1)
[2019-05-17] MEDS ORDERED: POTASSIUM PHOS 10 MM in NA CHLORIDE 0.9% 250 ML IV ONE (22:47)
[2019-05-17] MEDS ORDERED: MAGNESIUM SULFATE 1 gm IVPB 1 GM/100 ML BAG IV ONE (22:48)
[2019-05-17] MEDS ORDERED: CALCIUM GLUCONATE 1 GM IVPB 1 GM/50 ML BAG IV ONE (23:00)
[2019-05-18] MEDS: PIPER/TAZO/NS 3.375gm 3.375 GM/100 ML BAG IVPB SCH ×3 (00:59→17:46)
[2019-05-18] MEDS ORDERED: POTASSIUM PHOS IN 0.9 % NACL 15 MMOL/250 ML BAG IV ONE (01:12)
--- NOTE | 2019-05-18 01:27 | PN ---
Date of Progress Note: 05/17/2019 Chief Complaint: Hyponatremia, severe hyposmolar condition related to depletional hyponatremia. History Of Present Illness: The patient was found to have small bowel obstruction. She came to the hospital because of generalized weakness, abdominal pain, nausea, vomiting. She is admitted to ICU. She is on IV fluids to correct hyponatremia. She was found to have hypophosphatemia and potassium p hosphate was ordered with IV infusion today. Sodium level is gradually improving. IV fluids were ch anged to hypotonic fluids to show gradual correction of the severe hyponatremia. Review of Systems: The patient today denies nausea, vomiting. Physical Examination: Lungs: Clear to auscultation bilaterally. Heart: S1, S2. Abdomen: Soft, benign. Extremities: No edema. Laboratory Data: Hemoglobin 11.1, WBC 18.5, platelet count is 495,000. Chemistries showed sodium 11 9, potassium 4.0, chloride 84, BUN 26, creatinine 0.95, calcium 7.4, magnesium was 2.0, and phosphoru s 2.1. Impression And Plan: 1.The patient will continue normal saline for correction of hyponatremia and normal saline with D5 d extrose to control also hypoglycemia. 2.The patient received infusion with potassium phosphate. Monitor electrolytes. 3.Hypocalcemia. Check magnesium and the patient received IV calcium gluconate for replacement. 4.Small-bowel obstruction per Surgical team. 5.Severe hyponatremia. At this point, the patient will continue IV fluids and plan is to monitor el ectrolytes level closely. GUILLERMINA/FAUSTO Voice ID: [id number] Report ID: [id number]
[2019-05-18 05:42] LABS: Albumin 2.1 g/dL (3.4-5.0); Bilirubin Total 0.9 mg/dL (0.2-1.0); Magnesium 2.4 mg/dL (1.8-2.4); Phosphorus 3.2 mg/dL (2.5-4.9); Potassium 4.1 mmol/L (3.5-5.1); Protein, Total 5.4 g/dL (6.4-8.2)
[2019-05-18] MEDS: INSULIN -REGULAR HUMAN 50 UNIT/0.5 ML ML SQ SCH ×4 (06:00→17:46)
--- NOTE | 2019-05-18 08:51 | P.PN ---
Subjective Date of Service: 05/18/19 Primary Care Provider: Dr. Zamudio Chief Complaint: Nausea, vomiting and abdominal pain Subjective: Improving (No significant abdominal pain noted. No nausea vomiting med. NG tube in place.) Physical Examination - Vital Signs Temperature: 97.3 F Blood Pressure: 143/67 Pulse: 124 Respirations: 20 Pulse Ox (%): 99 - Physical Exam General: Alert, In no apparent distress, Oriented x3, Cooperative HEENT: Atraumatic Neck: Supple Respiratory: Clear to auscultation bilaterally, Normal air movement Cardiovascular: Irregular heart rate/rhythm (AFib, rate slightly elevated) Gastrointestinal: Normal bowel sounds, Soft and benign, Non-distended, No tenderness, No masses, No rebound, No guarding Neurological: Normal speech, Normal strength at 5/5 x4 extr, Normal tone - Studies Medications List Reviewed: Yes Assessment & Plan Discharge Plan: Home Plan to discharge in: 72 Hours Physician Review Additional Text: Impression: Nausea, vomiting, diarrhea and diffuse abdominal pain likely secondary to ileus Severe hyponatremia with Dehydration Atrial fibrillation, chronic not on chronic anticoagulation therapy Diabetes mellitus type 2, non-insulin dependent Hypertension Anemia likely of chronic disease with iron deficiency Elevated alcohol level without history of significant alcohol use Plan: Nausea, vomiting, diarrhea and diffuse abdominal pain likely secondary to ileus : Patient improving. Case discussed with surgery. Surgery plans to clamp NG tube and give trial of clear liquids. If successful NG tube can be removed. Will transfer patient to the floor. Will continue monitor closely. Encourage ambulation with physical therapy. Likely discharge in the next couple of days with clinical improvement Severe hyponatremia with Dehydration: Nephrology continues to adjust IV fluids. Sodium level improved. Continue to monitor and adjust fluid. Atrial fibrillation, chronic not on chronic anticoagulation therapy: Patient remains on anti coagulation therapy Lovenox at 1 milligram/kilograms subcu twice daily. Rate slightly increased today. Will start metoprolol 25 mg 1 pill twice daily. Will discuss with cardiology. Diarrhea: So far cultures negative. This is likely related to ileus. Diabetes mellitus type 2, non-insulin dependent: Will monitor Accu-Cheks. Will provide sliding scale. Hypertension: Will provide medication as needed. Anemia likely of chronic disease with iron deficiency: Iron level decreased. Patient will require iron. Hemoglobin remained stable. Container monitor lab closely. Elevated alcohol level without history of significant alcohol use: reports no recent alcohol use. Alcohol level was elevated upon admission. Recheck alcohol level negative. Time Spent Managing Pts Care (In Minutes): 55
[2019-05-18] MEDS: D5 0.9 NS 1,000 ML IV SCH (09:26)
[2019-05-18] MEDS: FAMOTIDINE 20 MG/2 ML VIAL IV SCH ×2 (09:26→20:25)
[2019-05-18] MEDS: ENOXAPARIN 60 MG/0.6 ML SQ SCH ×2 (09:26→20:25)
[2019-05-18] MEDS: METOPROLOL TAR 25 MG TAB PO SCH ×2 (09:42→17:46)
--- NOTE | 2019-05-18 11:50 | PN ---
Ms. Lee was seen initially for atrial fibrillation that appears to be chronic. She was admitted f or small bowel obstruction. Surgery was not needed. She has improved from her small bowel obstructi on standpoint. She was asymptomatic from a cardiovascular standpoint with atrial fibrillation in the 70s. Echocardiogram, which was done today, was normal without any significant wall motion abnormali ties or effusion or thrombus. I have suggested continuing her medications at home, and when she is r rita to go home, she needs to be on an anticoagulant such as Eliquis or Xarelto. I will sign off her case for now, and she will see me in the office as an outpatient. BROOKS/FAUSTO Voice ID: [id number] Report ID: [id number]
[2019-05-18] MEDS ORDERED: GLUCAGON 1 MG/VIAL IM PRN (14:13)
[2019-05-18] MEDS ORDERED: D50W 25 GM/50 ML SYRINGE IV PRN (14:13)
[2019-05-18] MEDS: HYDROMORPHONE HCL 0.5 MG/0.5 ML INJ IV PRN ×2 (14:20→20:25)
[2019-05-18] MEDS: NA CHLORIDE 0.9% 1,000 ML IV SCH (14:21)
[2019-05-18 18:02] LABS: Urine Appearance CLOUDY; Urine Bilirubin NEGATIVE (NEG); Urine Blood 3+ (NEG); Urine Color YELLOW; Urine Glucose NEGATIVE (NEG); Urine Protein 2+ (NEG); Urine Urobilinogen 0.2 mg/dL (0.2-1.0); Urine pH 5.5 (5.0-7.0)
[2019-05-18 18:06] LABS: Urine Microscopic Reflex ORDER UMIC
[2019-05-18 18:17] LABS: Urine Bacteria 20-50 /HPF (<20); Urine Culture Reflex Order REFLEXED; Urine RBC >50 /HPF (NONE SEEN)
[2019-05-18 18:18] LABS: Urine Coarse Granular Casts 0-5 /LPF (NONE SEEN)
[2019-05-18 18:34] LABS: UR SODIUM < 5 mmol/L (27-287)
--- NOTE | 2019-05-18 19:11 | PN ---
Date of Progress Note: 05/18/2019 Subjective: The patient was admitted with small bowel obstruction, ileus, found to have severe hypon atremia, hypokalemia and hypophosphatemia. The patient was started on 3% IV fluid, sodium slightly i mproved. The patient started on normal saline, continue sodium to improve. The patient started on l iquid diet yesterday. Physical Examination: Vital Signs: When I saw the patient blood pressure 165/92, pulse of 108. Chest: Clear to auscultat ion. Heart: S1, S2. Regular. Abdomen: Mild tenderness on the left quadrant. No guarding or rebound. Extremities: No edema. Laboratory Data: WBC 18.5, H and H 11.1/32, platelet 495. Sodium 123, potassium 4.1, bicarb 28, BUN 10, creatinine 0.7, calcium 7.7, phosphorus 3.2, magnesium 2.4, albumin 2.8. Current Medications: Include D5 normal saline at 60/hour, Zosyn 3.375 q.8, albuterol, Lovenox 60 b.i .d., hydralazine, metoprolol 25 b.i.d., breathing treatment. Assessment And Plan: 1.Hyponatremia secondary to depletional, nonoliguric. I am going to go ahead and change IV fluid to normal saline and discontinue D5. Look to me the patient still on the dry side. I am going to go a head and increase the rate to 75/hour and we will monitor the patient. We will go ahead and repeat U A with urine electrolyte and we will follow up the patient. 2.Hypertension, not controlled. The patient just started on Lopressor. We will follow up. 3.Hypomagnesemia, hypokalemia, hypophosphatemia, has been resolved. 4.Small bowel obstruction, ileus as by primary. KITTY/FAUSTO Voice ID: [id number] Report ID: [id number]
[2019-05-18] MEDS: ARFORMOTEROL TARTRATE 15 MCG/2 ML VIAL.NEB NEB SCH (20:00)
[2019-05-18] MEDS: HYDRALAZINE HCL 20 MG/ML VIAL IV PRN (20:25)
[2019-05-19] MEDS: PIPER/TAZO/NS 3.375gm 3.375 GM/100 ML BAG IVPB SCH ×3 (01:00→17:00)
[2019-05-19] MEDS: HYDROMORPHONE HCL 0.5 MG/0.5 ML INJ IV PRN ×2 (01:30→17:50)
[2019-05-19] MEDS: NA CHLORIDE 0.9% 1,000 ML IV SCH ×2 (04:08→11:00)
[2019-05-19] MEDS: METOPROLOL TAR 25 MG TAB PO SCH (05:03)
[2019-05-19 05:40] LABS: Absolute Lymphocytes (CBC) 0.9 K/uL (0.7-4.9); Basophils % 0.4 % (0-1.3); Hematocrit 28.2 % (36.0-45.0); MPV 8.2 fL (7.6-11.3)
[2019-05-19 05:54] LABS: Albumin 2.1 g/dL (3.4-5.0); Magnesium 2.1 mg/dL (1.8-2.4); Phosphorus 2.2 mg/dL (2.5-4.9); Potassium 3.9 mmol/L (3.5-5.1)
[2019-05-19 06:52] LABS: Anisocytosis 1+; Blood Morphology Comment NOTED (NOT SEEN); Burr Cells 1+; Platelet Estimate ADEQ
[2019-05-19] MEDS ORDERED: POTASS/SODIUM PHOSPHATE 1 PKT POWD.PACK PO SCH (07:00)
[2019-05-19] MEDS: INSULIN -REGULAR HUMAN 50 UNIT/0.5 ML ML SQ SCH ×5 (07:30→20:43)
[2019-05-19] MEDS: ARFORMOTEROL TARTRATE 15 MCG/2 ML VIAL.NEB NEB SCH ×2 (07:45→20:00)
[2019-05-19] MEDS: IPRATROPIUM BROM 0.5MG/2.5ML NEB PRN (07:45)
[2019-05-19] MEDS: ENOXAPARIN 60 MG/0.6 ML SQ SCH ×2 (09:40→20:43)
[2019-05-19] MEDS: FAMOTIDINE 20 MG/2 ML VIAL IV SCH ×2 (09:41→20:43)
[2019-05-19] MEDS: POTASS/SODIUM PHOSPHATE 1 PKT POWD.PACK PO SCH ×3 (09:41→13:34)
--- NOTE | 2019-05-19 09:47 | P.PN ---
Subjective Date of Service: 05/19/19 Primary Care Provider: Dr. Zamudio Chief Complaint: Nausea, vomiting and abdominal pain Subjective: Other (No nausea or vomiting noted today. She had some mild pain with Jell-O) Physical Examination - Vital Signs Temperature: 97.6 F Blood Pressure: 175/79 Pulse: 90 Respirations: 16 Pulse Ox (%): 98 - Physical Exam General: Alert, In no apparent distress, Oriented x3, Cooperative HEENT: Atraumatic Neck: Supple Respiratory: Clear to auscultation bilaterally, Normal air movement Cardiovascular: Irregular heart rate/rhythm (AFib, rate controlled) Gastrointestinal: Normal bowel sounds, Soft and benign, No masses, No rebound, No guarding, Distended (Minimal abdominal distention compared to yesterday but soft), Tenderness (Minimal pain with deep palpation noted) - Studies Medications List Reviewed: Yes Assessment & Plan Discharge Plan: Home Plan to discharge in: Greater than 2 days Physician Review Additional Text: Impression: Nausea, vomiting, diarrhea and diffuse abdominal pain likely secondary to ileus Severe hyponatremia with Dehydration Atrial fibrillation, chronic not on chronic anticoagulation therapy Diabetes mellitus type 2, non-insulin dependent Hypertension Anemia likely of chronic disease with iron deficiency Elevated alcohol level without history of significant alcohol use Plan: Nausea, vomiting, diarrhea and diffuse abdominal pain likely secondary to ileus : Patient is slowly improving. Patient was transferred from ICU to the floor yesterday. NG tube was removed. Patient with mild pain with Jell-O today. Case discussed with surgery. Continue clear liquid up to full liquid. Will not be aggressive in advancing her diet. Encourage ambulation. Continue with IV fluids. IV fluids adjusted by Nephrology. Will continue to reassess and monitor closely. Severe hyponatremia with Dehydration: Nephrology continues to adjust IV fluids. Sodium level improved. Continue to monitor and adjust fluid. Atrial fibrillation, chronic not on chronic anticoagulation therapy: Patient remains on anti coagulation therapy Lovenox at 1 milligram/kilograms subcu twice daily. Rate controlled. Patient started on metoprolol yesterday. Will continue to monitor and adjust appropriately. Diarrhea: So far cultures negative. This is likely related to ileus. Diabetes mellitus type 2, non-insulin dependent: Will monitor Accu-Cheks. Will provide sliding scale. Hypertension: Currently on metoprolol. Will monitor and adjust appropriately Anemia likely of chronic disease with iron deficiency: Iron level decreased. Patient will require iron. Will start IV iron. Continue to monitor hemoglobin closely. Elevated alcohol level without history of significant alcohol use: reports no recent alcohol use. Alcohol level was elevated upon admission. Recheck alcohol level negative. Time Spent Managing Pts Care (In Minutes): 55
[2019-05-19] MEDS ORDERED: TRAMADOL HCL 50 MG TAB PO PRN (09:50)
[2019-05-19] MEDS ORDERED: KCL 20 MEQ/100 mL IVPB 20 MEQ/100 ML BAG IV SCH (11:00)
--- NOTE | 2019-05-19 12:28 | P.PN ---
Subjective Date of Service: 05/19/19 Primary Care Provider: Dr. Zamudio Chief Complaint: Nausea, vomiting and abdominal pain Subjective: No new changes (Patient has mild suprapubic abdominal pain) Physical Examination - Vital Signs Temperature: 97.6 F Blood Pressure: 175/79 Pulse: 90 Respirations: 16 Pulse Ox (%): 98 - Physical Exam General: Alert, In no apparent distress, Cooperative Gastrointestinal: Other (mild suprapubic TTP, ND, no rebound, no guarding) - Studies Medications List Reviewed: Yes Assessment And Plan - Current Problems (Diagnosis) (1) Ileus Current Visit: Yes Status: Acute Plan: Patient likely has ileus given her profound electrolyte abnormalities, and has + ETOH, likely contributing to her overall clinical picture - continue serial exams - slow electrolyte correction per pebble mill operator - new onset A-fib on anticoagulation - await Dr. Sydnee leal - continue medical management per Dr. Marks Physician Review Additional Text: Impression: Nausea, vomiting, diarrhea and diffuse abdominal pain likely secondary to ileus Severe hyponatremia with Dehydration Atrial fibrillation, chronic not on chronic anticoagulation therapy Diabetes mellitus type 2, non-insulin dependent Hypertension Anemia likely of chronic disease with iron deficiency Elevated alcohol level without history of significant alcohol use Plan: Nausea, vomiting, diarrhea and diffuse abdominal pain likely secondary to ileus : Patient is slowly improving. Patient was transferred from ICU to the floor yesterday. NG tube was removed. Patient with mild pain with Jell-O today. Case discussed with surgery. Continue clear liquid up to full liquid. Will not be aggressive in advancing her diet. Encourage ambulation. Continue with IV fluids. IV fluids adjusted by Nephrology. Will continue to reassess and monitor closely. Severe hyponatremia with Dehydration: Nephrology continues to adjust IV fluids. Sodium level improved. Continue to monitor and adjust fluid. Atrial fibrillation, chronic not on chronic anticoagulation therapy: Patient remains on anti coagulation therapy Lovenox at 1 milligram/kilograms subcu twice daily. Rate controlled. Patient started on metoprolol yesterday. Will continue to monitor and adjust appropriately. Diarrhea: So far cultures negative. This is likely related to ileus. Diabetes mellitus type 2, non-insulin dependent: Will monitor Accu-Cheks. Will provide sliding scale. Hypertension: Currently on metoprolol. Will monitor and adjust appropriately Anemia likely of chronic disease with iron deficiency: Iron level decreased. Patient will require iron. Will start IV iron. Continue to monitor hemoglobin closely. Elevated alcohol level without history of significant alcohol use: reports no recent alcohol use. Alcohol level was elevated upon admission. Recheck alcohol level negative.
--- NOTE | 2019-05-19 12:30 | PN ---
Date of Progress Note: 05/19/2019 Subjective: The patient was admitted with ileus, abdominal pain, small bowel obstruction, found to h ave hyponatremia. Physical Examination: Vital Signs: Blood pressure 175/79, pulse of 90, afebrile. The patient had good urine output of 750 . Tolerating liquid diet. Still does not have any bowel movement. Chest: Clear to auscultation. Heart: S1 and S2, regular. Abdomen: Soft. Mild tenderness. No guarding or rebound. Extremities: No edema. Laboratory Data: H and H 9.4/28.2, WBC 18, platelet 452. Sodium 127, potassium 3.9, bicarb 26, BUN 10, creatinine 0.7, calcium 7.4, phosphorus 2.2, magnesium 2.1, albumin 2.1. Current Medications: The patient on its include metoprolol 25 b.i.d., Zosyn, IV iron, Lovenox, hydra lazine, Tylenol, breathing treatment, IV fluid at 75 per hour. Assessment And Plan: 1.Hyponatremia secondary to depletional support with urine sodium less than 5. I am going to contin ue IV fluid. We will decrease it to 50 per hour. 2.Hypokalemia. We will supplement. 3.Ileus. Continue follow up with surgery. 4.Hypophosphatemia, resolved. No need for supplement today. 5.Hypomagnesemia, resolved. ROGELIO Voice ID: [id number] Report ID: [id number]
[2019-05-19] MEDS: ONDANSETRON 4 MG/2 ML VIAL IV PRN (13:39)
--- NOTE | 2019-05-19 14:15 | CON ---
Mrs. Lee remains in atrial fibrillation. She seems to be getting slowly better. Her sodium today is 127, which is a great improvement, it is about 105 when she first came in. I think our plan for rate control anticoagulation is good for now, probably it is a good chronic therapy for her unless he r atrial fibrillation becomes very symptomatic or otherwise bothersome to her. LUIS ENRIQUE/FAUSTO Voice ID: [id number] Report ID: [id number]
[2019-05-19] MEDS: CARVEDILOL 12.5 MG TAB PO SCH (17:50)
[2019-05-19] MEDS ORDERED: METOPROLOL TAR 25 MG TAB PO SCH (18:00)
[2019-05-20] MEDS: PIPER/TAZO/NS 3.375gm 3.375 GM/100 ML BAG IVPB SCH ×3 (00:28→17:23)
[2019-05-20] MEDS: NA CHLORIDE 0.9% 1,000 ML IV SCH (05:06)
[2019-05-20] MEDS: CARVEDILOL 12.5 MG TAB PO SCH ×2 (05:06→17:21)
[2019-05-20 05:48] LABS: Albumin 1.9 g/dL (3.4-5.0); Magnesium 2.2 mg/dL (1.8-2.4); Phosphorus 2.6 mg/dL (2.5-4.9); Potassium 4.1 mmol/L (3.5-5.1)
[2019-05-20] MEDS ORDERED: POLYETHYL GLY 3350 17 GM/DOSE PO PRN (05:53)
[2019-05-20] MEDS: ARFORMOTEROL TARTRATE 15 MCG/2 ML VIAL.NEB NEB SCH ×2 (07:20→20:00)
[2019-05-20] MEDS: IPRATROPIUM BROM 0.5MG/2.5ML NEB PRN (07:20)
[2019-05-20] MEDS: INSULIN -REGULAR HUMAN 50 UNIT/0.5 ML ML SQ SCH ×4 (07:30→20:45)
--- NOTE | 2019-05-20 08:32 | P.PN ---
Subjective Date of Service: 05/20/19 Primary Care Provider: Dr. Zamudio Chief Complaint: Nausea, vomiting and abdominal pain Subjective: Improving (Patient has no abdominal pain, the suprapubic abdominal pain from yesteday has resolved, no nause, no emesis, unsure if passing gas, no BM) Physical Examination - Vital Signs Temperature: 97.7 F Blood Pressure: 145/75 Pulse: 85 Respirations: 16 Pulse Ox (%): 99 - Physical Exam General: Alert, In no apparent distress, Cooperative Gastrointestinal: Soft and benign, Non-distended, No ascites, No tenderness, No masses, No rebound, No guarding - Studies Microbiology Data (last 24 hrs): 05/14/19 15:30 Blood - Blood Aerobic Blood Culture - Final No growth in 5 days. 05/14/19 15:30 Blood - Blood Anaerobic Blood Culture - Final No growth in 5 days. 05/14/19 15:45 Blood - Blood Aerobic Blood Culture - Final No growth in 5 days. 05/14/19 15:45 Blood - Blood Anaerobic Blood Culture - Final No growth in 5 days. Medications List Reviewed: Yes Assessment And Plan - Current Problems (Diagnosis) (1) Ileus Current Visit: Yes Status: Acute Plan: Patient likely has ileus given her profound electrolyte abnormalities, and has + ETOH, likely contributing to her overall clinical picture - continue serial exams - slow electrolyte correction per uniform designer - new onset A-fib on anticoagulation - anticoagulated with lovenox, will be bridged to PO soon - continue medical management per Dr. Marks - Patient has benign abdominal exam for days, tolerating clear liquid diet, no evidence of SBO, therefore I recommend advance diet to GI soft, if tolerated can be discharged from surgical standpoint Physician Review Additional Text: Impression: Nausea, vomiting, diarrhea and diffuse abdominal pain likely secondary to ileus Severe hyponatremia with Dehydration Atrial fibrillation, chronic not on chronic anticoagulation therapy Diabetes mellitus type 2, non-insulin dependent Hypertension Anemia likely of chronic disease with iron deficiency Elevated alcohol level without history of significant alcohol use Plan: Nausea, vomiting, diarrhea and diffuse abdominal pain likely secondary to ileus : Patient is slowly improving. Patient was transferred from ICU to the floor yesterday. NG tube was removed. Patient with mild pain with Jell-O today. Case discussed with surgery. Continue clear liquid up to full liquid. Will not be aggressive in advancing her diet. Encourage ambulation. Continue with IV fluids. IV fluids adjusted by Nephrology. Will continue to reassess and monitor closely. Severe hyponatremia with Dehydration: Nephrology continues to adjust IV fluids. Sodium level improved. Continue to monitor and adjust fluid. Atrial fibrillation, chronic not on chronic anticoagulation therapy: Patient remains on anti coagulation therapy Lovenox at 1 milligram/kilograms subcu twice daily. Rate controlled. Patient started on metoprolol yesterday. Will continue to monitor and adjust appropriately. Diarrhea: So far cultures negative. This is likely related to ileus. Diabetes mellitus type 2, non-insulin dependent: Will monitor Accu-Cheks. Will provide sliding scale. Hypertension: Currently on metoprolol. Will monitor and adjust appropriately Anemia likely of chronic disease with iron deficiency: Iron level decreased. Patient will require iron. Will start IV iron. Continue to monitor hemoglobin closely. Elevated alcohol level without history of significant alcohol use: reports no recent alcohol use. Alcohol level was elevated upon admission. Recheck alcohol level negative.
[2019-05-20] MEDS: AMLODIPINE 10 MG TAB PO SCH (09:04)
[2019-05-20] MEDS: FAMOTIDINE 20 MG/2 ML VIAL IV SCH ×2 (09:04→20:50)
[2019-05-20] MEDS: ENOXAPARIN 60 MG/0.6 ML SQ SCH ×2 (09:05→20:50)
[2019-05-20] MEDS: SOD FERRIC GLUC COMPLX/SUCROSE 125 MG in NA CHLORIDE 0.9% 100 ML IV SCH (09:08)
[2019-05-20 09:09] LABS: Absolute Lymphocytes (CBC) 0.8 K/uL (0.7-4.9); Basophils % 0.3 % (0-1.3); Hematocrit 26.5 % (36.0-45.0); Lymphocytes % 4.9 % (15.3-44.8); RBC Red Blood Cell Count 3.16 M/uL (3.86-4.86)
[2019-05-20 09:34] LABS: Urine White Blood Cell Casts OK
[2019-05-20 09:35] LABS: Blood Morphology Comment NOT SEEN (NOT SEEN); Platelet Estimate ADEQ
--- NOTE | 2019-05-20 10:20 | P.PN ---
Subjective Date of Service: 05/20/19 Primary Care Provider: Dr. Zamudio Chief Complaint: Nausea, vomiting and abdominal pain Subjective: Doing well (Patient tolerating full liquid diet. Patient is ambulating.) Physical Examination - Vital Signs Temperature: 97.7 F Blood Pressure: 145/75 Pulse: 85 Respirations: 16 Pulse Ox (%): 99 - Physical Exam General: Alert, In no apparent distress, Oriented x3, Cooperative HEENT: Atraumatic Neck: Supple Respiratory: Clear to auscultation bilaterally, Normal air movement Cardiovascular: Normal pulses, Regular rate/rhythm Gastrointestinal: Normal bowel sounds, Soft and benign, No tenderness, No masses , No rebound, No guarding, Distended (Minimal distention) Musculoskeletal: No erythema, No tenderness, No warmth Integumentary: No tenderness/swelling, No erythema, No warmth, No cyanosis Neurological: Normal speech, Normal strength at 5/5 x4 extr, Normal tone, Normal affect - Studies Microbiology Data (last 24 hrs): 05/14/19 15:30 Blood - Blood Aerobic Blood Culture - Final No growth in 5 days. 05/14/19 15:30 Blood - Blood Anaerobic Blood Culture - Final No growth in 5 days. 05/14/19 15:45 Blood - Blood Aerobic Blood Culture - Final No growth in 5 days. 05/14/19 15:45 Blood - Blood Anaerobic Blood Culture - Final No growth in 5 days. Medications List Reviewed: Yes Assessment & Plan Discharge Plan: Home Plan to discharge in: 72 Hours Physician Review Additional Text: Impression: Nausea, vomiting, diarrhea and diffuse abdominal pain likely secondary to ileus Severe hyponatremia with Dehydration Atrial fibrillation, chronic not on chronic anticoagulation therapy Diabetes mellitus type 2, non-insulin dependent Hypertension Anemia likely of chronic disease with iron deficiency Elevated alcohol level without history of significant alcohol use Plan: Nausea, vomiting, diarrhea and diffuse abdominal pain likely secondary to ileus : Patient is slowly improving. Patient now ambulating. Continue ambulation with physical therapy. Patient tolerating current diet. Case discussed with surgery. Surgery recommends to advance diet. Will start GI soft diet today. Nephrology continues to adjust IV fluids. Hyponatremia resolving. Likely discharge in the next 2-3 days pending clinical improvement. I will turn the service over to Dr. Krause tomorrow. I will go over the plan of care with her. Severe hyponatremia with Dehydration: Nephrology continues to adjust IV fluids. Sodium level improved. Continue to monitor and adjust fluid. Atrial fibrillation, chronic not on chronic anticoagulation therapy: Patient remains on anti coagulation therapy Lovenox at 1 milligram/kilograms subcu twice daily. Rate controlled on metoprolol yesterday. Will continue to monitor and adjust appropriately. Once taking good oral intake. Patient can be transition from Lovenox to Eliquis. Diarrhea: So far cultures negative. This is likely related to ileus. Diabetes mellitus type 2, non-insulin dependent: Will monitor Accu-Cheks. Will provide sliding scale. Hypertension: Currently on metoprolol. Will monitor and adjust appropriately Anemia likely of chronic disease with iron deficiency: Iron level decreased. Continue with IV iron. Continue to monitor hemoglobin closely. Elevated alcohol level without history of significant alcohol use: reports no recent alcohol use. Alcohol level was elevated upon admission. Recheck alcohol level was negative. Time Spent Managing Pts Care (In Minutes): 55
[2019-05-20 15:11] LABS: Urine Appearance CLOUDY; Urine Blood 3+ (NEG); Urine Color DK YELLOW; Urine Glucose NEGATIVE (NEG); Urine Protein 2+ (NEG); Urine Specific Gravity >=1.030 (1.005-1.030); Urine Urobilinogen 0.2 mg/dL (0.2-1.0)
[2019-05-20 15:23] LABS: Urine Bilirubin NEGATIVE (NEG); Urine Microscopic Reflex ORDER UMIC
[2019-05-20 15:27] LABS: Urine Bacteria 20-50 /HPF (<20); Urine Culture Reflex Order REFLEXED
--- NOTE | 2019-05-20 16:27 | PN ---
Date of Progress Note: 05/20/2019 Subjective: The patient was admitted with ileus, small bowel obstruction, hyponatremia. Physical Examination: Vital Signs: 165/78 P 78. Vital Signs: When I saw the patient, blood pressure of 149/76, pulse of 88. Chest: Clear to auscultation. Heart: S1, S2. Regular. Abdomen: Soft, nontender. Extremities: Trace edema. Laboratory Data: WBC 16.2, H and H 8.9/26.5. Sodium 130, potassium 4.1, bicarb 24, BUN 13, creatinine 0.7, calcium 7.3, phosphorus 2.6, magnesium 2.2, albumin 1.9 corrected, calcium is 8.9. Current Medications: The patient on its include Zosyn, IV iron, Lovenox, amlodipine, carvedilol 12.5, Tylenol, lorazepam, breathing treatment. Assessment And Plan: 1. Hyponatremia secondary to depletion support with urine sodium less than 5, continue IV fluids and we will monitor. 2. Hypokalemia, status post supplement, resolved. 3. Small bowel obstruction as by primary. 4. Hypomagnesemia, status post supplement. 5. Hypertension, controlled, not optimal. Continue on current medication. 6. The patient case discussed with the patient, verbalized understanding. Discussed with Dr. Marks, agreed on the plan. ROGELIO Voice ID: [id number] Report ID: [id number] MTDD
[2019-05-20] MEDS: HYDROCODONE/APAP 7.5/325 MG TAB PO PRN (19:06)
[2019-05-21] MEDS: HYDRALAZINE HCL 20 MG/ML VIAL IV PRN ×2 (00:58→18:13)
[2019-05-21] MEDS: HYDROCODONE/APAP 7.5/325 MG TAB PO PRN ×2 (00:58→06:32)
[2019-05-21] MEDS: PIPER/TAZO/NS 3.375gm 3.375 GM/100 ML BAG IVPB SCH ×3 (01:00→17:54)
[2019-05-21 05:14] LABS: Absolute Lymphocytes (CBC) 0.5 K/uL (0.7-4.9); Basophils % 0.1 % (0-1.3); Hematocrit 24.7 % (36.0-45.0); Lymphocytes % 2.4 % (15.3-44.8); MPV 7.5 fL (7.6-11.3); RBC Red Blood Cell Count 2.93 M/uL (3.86-4.86)
[2019-05-21 05:20] LABS: Magnesium 2.1 mg/dL (1.8-2.4); Phosphorus 2.5 mg/dL (2.5-4.9); Potassium 4.3 mmol/L (3.5-5.1)
[2019-05-21] MEDS: CARVEDILOL 12.5 MG TAB PO SCH ×2 (06:32→17:55)
[2019-05-21 06:58] LABS: Blood Morphology Comment NOT SEEN (NOT SEEN); Platelet Estimate ADEQ
[2019-05-21] MEDS: ARFORMOTEROL TARTRATE 15 MCG/2 ML VIAL.NEB NEB SCH ×2 (07:30→20:00)
[2019-05-21] MEDS: INSULIN -REGULAR HUMAN 50 UNIT/0.5 ML ML SQ SCH ×3 (07:30→18:14)
[2019-05-21] MEDS: ENOXAPARIN 60 MG/0.6 ML SQ SCH ×2 (09:30→21:13)
[2019-05-21] MEDS: AMLODIPINE 10 MG TAB PO SCH (09:30)
[2019-05-21] MEDS: FAMOTIDINE 20 MG/2 ML VIAL IV SCH ×2 (09:30→21:10)
[2019-05-21] MEDS: SOD FERRIC GLUC COMPLX/SUCROSE 125 MG in NA CHLORIDE 0.9% 100 ML IV SCH (09:45)
--- NOTE | 2019-05-21 10:10 | RAD REPORT ---
EXAM DESCRIPTION: RAD - Abdomen 1 View (KUB) - 05/21/2019 10:03 am CLINICAL HISTORY: abdominal pain Pain COMPARISON: Abdomen Pelvis W Contrast dated 05/10/2019 FINDINGS: Multiple dilated and organized small bowel loops are present in the central abdomen sugges ting developing small bowel obstruction. Adynamic ileus is considered a less likely possibility. No e vidence of free air. Consider a follow-up radiographs in 24 hours for continued monitoring.
--- NOTE | 2019-05-21 11:34 | P.PN ---
Subjective Date of Service: 05/21/19 Primary Care Provider: Dr. Zamudio Chief Complaint: Nausea, vomiting and abdominal pain Review of Systems 10-point ROS is otherwise unremarkable Physical Examination - Vital Signs Temperature: 97.1 F Blood Pressure: 129/60 Pulse: 92 Respirations: 16 Pulse Ox (%): 96 - Physical Exam General: Alert, In no apparent distress, Mild distress Respiratory: Clear to auscultation bilaterally, Normal air movement Cardiovascular: Regular rate/rhythm, Normal S1 S2 Gastrointestinal: Normal bowel sounds, No tenderness Musculoskeletal: Tenderness (RUQ and RLQ pain) Integumentary: No rashes Neurological: Normal speech, Normal tone, Normal affect Lymphatics: No axilla or inguinal lymphadenopathy - Studies Medications List Reviewed: Yes Assessment And Plan - Current Problems (Diagnosis) (1) SBO (small bowel obstruction) Current Visit: Yes Status: Acute Plan: Patient initially with bilious now with possible small bowel obstruction -patient's white count this morning was elevated to 20.3 physical exam consistent with right upper and lower quadrant pain -currently is on IV Zosyn -KUB this morning consistent with dilated bowel loops with possible small bowel obstruction -will notify us general surgery at this time. Awaiting further recommendations at this time. (2) Hyponatremia Onset Date: 02/27/18 Current Visit: No Status: Acute Plan: Hyponatremia most likely secondary to dehydration -sodium levels of 132 this morning -continue with IV fluids at this time -will monitor close (3) Diabetes Onset Date: 09/12/15 Current Visit: No Status: Chronic Plan: Insulin sliding scale and Accu-Chek+ Qualifiers: Diabetes mellitus type: type 2 Diabetes mellitus agronomy technician insulin use: without agronomy technician use Diabetes mellitus complication status: without complication Qualified Code(s): E11.9 - Type 2 diabetes mellitus without complications (4) Essential hypertension Onset Date: 02/27/18 Current Visit: No Status: Chronic Plan: Stable at this time -restarted on home medication - Plan Pending clinical improvement at this time. Will follow up with general surgery recommendation Discharge Plan: Home - Code Status/Comfort Care Code Status Assessed: Yes Critical Care: No
--- NOTE | 2019-05-21 11:48 | P.PN ---
Subjective Date of Service: 05/21/19 Primary Care Provider: Dr. Zamudio Chief Complaint: Nausea, vomiting and abdominal pain pt with small bowel obstruction, Hx of chronic hyponatremia in ER Na 105 , improved on IVF Today Na 132 Wbc up to 20K cultures -ve Pt complaining of Abd tenderness Surgery on board can remove jose Physical Examination - Vital Signs Temperature: 97.1 F Blood Pressure: 129/60 Pulse: 92 Respirations: 16 Pulse Ox (%): 96 - Physical Exam General: Oriented x3, Mild distress HEENT: Atraumatic Neck: Supple, Without JVD or thyroid abnormality Respiratory: Clear to auscultation bilaterally, Normal air movement Cardiovascular: No edema, Regular rate/rhythm, Normal S1 S2, No gallops, No rubs , No murmurs Gastrointestinal: Tenderness - Studies Medications List Reviewed: Yes Assessment And Plan Physician Review Additional Text: hypoosmolar Hyponatremia Due to dehydration and poor Po intake Improved on IVF hypokalemia resolved Small bowel obstruction today complaining of tenderness Surgery F/U HTN controlled lueckocytosis on Abx cultures so far -ve
[2019-05-21 11:59] LABS: Urine Total Volume 24 Hours 450 ml
[2019-05-21 12:01] LABS: UR SODIUM 16 mmol/L (27-287)
[2019-05-21] MEDS: NA CHLORIDE 0.9% 1,000 ML IV SCH (13:00)
--- NOTE | 2019-05-21 14:16 | PN ---
Please note I am covering for Dr. Garcia. I was contacted by the nursing staff because patient's wh ite count is elevated and abdomen is distended. She is complaining of abdominal pain. She has no na usea or vomiting. Her last bowel movement was several days ago and denies any flatus at this time. She did have an NG tube in which was removed a couple of days ago. She had an x-ray earlier that kim ws ileus versus obstruction. Her vital signs are stable. She is afebrile. Laboratory Data: Reviewed. White count is 20.3 which is up from 16.2 yesterday and platelets are no rmal. There is a left shift on it. Her chemistry shows sodium of 132, CO2 of 20. Abdomen is soft. It is slightly distended and there is no rebound, rigidity or guarding. Assessment: Small bowel obstruction versus ileus in a patient with severe hyponatremia, which is jamshid ng corrected. Recommendations: If the patient vomits she needs an NG tube. We will also start a PICC line and TPN as she has not eaten well and will get a small bowel series to assess whether this is an ileus or an obstruction and will make further recommendation after the workup is completed. Plan of care discussed with Dr. Krause. /MODL Voice ID: [id number] Report ID: [id number]
[2019-05-21] MEDS: ONDANSETRON 4 MG/2 ML VIAL IV PRN (17:55)
[2019-05-21] MEDS: HYDROMORPHONE HCL 0.5 MG/0.5 ML INJ IV PRN ×2 (18:14→22:30)
[2019-05-21] MEDS ORDERED: AA 5%/D20W/ELECTROLYTES-TPN 2,000 ML, Lipids 20% 250 ML with MULTIVITAMINS INJ 10 ML IV SCH ×3 (19:00)
--- NOTE | 2019-05-21 20:55 | RAD REPORT ---
EXAM DESCRIPTION: RAD - Small Bowel Series - 05/21/2019 8:44 pm CLINICAL HISTORY: Abdominal pain, small bowel obstruction COMPARISON: CT study May 10 FINDINGS: Window Display Designer films show multiple dilated small bowel loops. No free air or pneumatosis. Cholecyst ectomy clips are present. Right femoral vascular access catheter is in place. No suspicious calcifica tions. Gastric size and mucosal fold pattern are normal. No delay in transit of contrast into the small andrea l. Multiple dilated small bowel loops are present. There is slow antegrade movement of the contrast c olumn through the small bowel. At 6 hours after contrast administration no barium has reached the dec ompressed colon. There is no extravasation of contrast. IMPRESSION: Multiple dilated small bowel loops with no contrast reaching the colon 6 hours after ini tiation of the examination. Small bowel obstruction pattern will be re-evaluated tomorrow morning to evaluate any further antegra de movement of contrast. No extravasation of contrast and no free air.
[2019-05-21] MEDS: GLUCERNA SHAKE 237 ML CAN PO SCH (21:00)
[2019-05-22] MEDS: INSULIN -REGULAR HUMAN 50 UNIT/0.5 ML ML SQ SCH ×4 (00:46→18:19)
[2019-05-22] MEDS: HYDRALAZINE HCL 20 MG/ML VIAL IV PRN (00:47)
[2019-05-22] MEDS: NA CHLORIDE 0.9% 1,000 ML IV SCH ×3 (00:59→22:42)
[2019-05-22] MEDS: HYDROMORPHONE HCL 0.5 MG/0.5 ML INJ IV PRN ×2 (02:18→06:35)
[2019-05-22] MEDS: PIPER/TAZO/NS 3.375gm 3.375 GM/100 ML BAG IVPB SCH ×2 (02:19→08:25)
[2019-05-22 05:40] LABS: Absolute Lymphocytes (CBC) 0.3 K/uL (0.7-4.9); Basophils % 0.5 % (0-1.3); Hematocrit 21.9 % (36.0-45.0); Lymphocytes % 2.7 % (15.3-44.8); MPV 7.7 fL (7.6-11.3); RBC Red Blood Cell Count 2.59 M/uL (3.86-4.86)
[2019-05-22 05:57] LABS: Albumin 1.8 g/dL (3.4-5.0); Magnesium 2.1 mg/dL (1.8-2.4); Phosphorus 2.7 mg/dL (2.5-4.9); Potassium 4.1 mmol/L (3.5-5.1)
[2019-05-22] MEDS: CARVEDILOL 12.5 MG TAB PO SCH ×2 (06:00→16:01)
[2019-05-22] MEDS: AMLODIPINE 10 MG TAB PO SCH (07:20)
[2019-05-22] MEDS: ENOXAPARIN 60 MG/0.6 ML SQ SCH (07:20)
[2019-05-22] MEDS: GLUCERNA SHAKE 237 ML CAN PO SCH (07:20)
[2019-05-22] MEDS: ARFORMOTEROL TARTRATE 15 MCG/2 ML VIAL.NEB NEB SCH ×2 (07:41→20:10)
[2019-05-22] MEDS: FAMOTIDINE 20 MG/2 ML VIAL IV SCH (08:25)
[2019-05-22] MEDS: SOD FERRIC GLUC COMPLX/SUCROSE 125 MG in NA CHLORIDE 0.9% 100 ML IV SCH (09:00)
[2019-05-22] MEDS ORDERED: DEXTROSE 10%-WATER 500 ML IV ONE (10:44)
--- NOTE | 2019-05-22 10:44 | P.PN ---
Subjective Date of Service: 05/22/19 Primary Care Provider: Dr. Zamudio Chief Complaint: Nausea, vomiting and abdominal pain Subjective: Worsening pt with small bowel obstruction, Hx of chronic hyponatremia in ER Na 105 , improved on IVF Today Abd distended and tender oliguric , Cr up to 1.4 Na 130 with BS 410, corrected Na ~134 on TPN scheduled for surgery today will order renal US place jose Physical Examination - Vital Signs Temperature: 98 F Blood Pressure: 138/65 Pulse: 107 Respirations: 20 Pulse Ox (%): 97 - Physical Exam General: Oriented x3, Moderate distress HEENT: Atraumatic Neck: Supple, JVD not distended, Without JVD or thyroid abnormality Respiratory: Clear to auscultation bilaterally Cardiovascular: No edema, Regular rate/rhythm, Normal S1 S2, No gallops, No rubs , No murmurs Gastrointestinal: Distended, Tenderness Musculoskeletal: No clubbing Integumentary: No rashes - Studies Medications List Reviewed: Yes Assessment And Plan Physician Review Additional Text: JOSE reason unclear , possibly due to prerenal azotemia +/- Septic GN +/- Abd compartment will order renal US IVF hypoosmolar Hyponatremia Due to dehydration and poor Po intake will cont IVF hypokalemia resolved Small bowel obstruction abd distension and tenderness Surgery F/U HTN controlled leuckocytosis on Abx cultures so far -ve
[2019-05-22] MEDS ORDERED: INSULIN -REGULAR HUMAN 50 UNIT/0.5 ML ML ONE (11:05)
[2019-05-22] MEDS ORDERED: SUCCINYLCHOLINE 20 MG/ML (10 ML) IV ONE (11:10)
[2019-05-22] MEDS ORDERED: FENTANYL CITR 250 MCG/5 ML ONE (11:11)
[2019-05-22] MEDS ORDERED: ROCURONIUM 50 MG/5 ML VIAL IV ONE ×2 (11:11→12:36)
[2019-05-22] MEDS ORDERED: PROPOFOL 200 MG/20 ML VIAL IV ONE (11:11)
[2019-05-22] MEDS ORDERED: Phenylephrine HCl 10 MG/ML 1 ML VIAL ONE ×2 (11:26→12:03)
--- NOTE | 2019-05-22 11:32 | RAD REPORT ---
EXAM DESCRIPTION: RAD - Chest Single View - 05/22/2019 10:39 am CLINICAL HISTORY: NG tube placement verification Chest pain. COMPARISON: <Comparisons> FINDINGS: Tip of the NG tube appears in the superior aspect of the stomach.
--- NOTE | 2019-05-22 11:35 | P.PN ---
Subjective Date of Service: 05/22/19 Primary Care Provider: Dr. Zamudio Chief Complaint: Nausea, vomiting and abdominal pain Patient seen and examined at bedside with RN. Chart reviewed. Case discussed with general surgery. Patient this morning complaining of having abdominal pain. Nausea vomiting as well. Overnight patient had acute distress. Review of Systems 10-point ROS is otherwise unremarkable Physical Examination - Vital Signs Temperature: 98 F Blood Pressure: 138/65 Pulse: 107 Respirations: 20 Pulse Ox (%): 97 - Physical Exam General: Alert, Mild distress HEENT: Atraumatic, PERRLA, EOMI Neck: Supple, JVD not distended Respiratory: Clear to auscultation bilaterally, Normal air movement Cardiovascular: Regular rate/rhythm, Normal S1 S2 Gastrointestinal: Rigidity, Distended, Tenderness Musculoskeletal: No tenderness Integumentary: No rashes Neurological: Normal speech, Normal tone, Normal affect Lymphatics: No axilla or inguinal lymphadenopathy - Studies Medications List Reviewed: Yes Assessment And Plan - Current Problems (Diagnosis) (1) SBO (small bowel obstruction) Current Visit: Yes Status: Acute Plan: Patient initially with bilious now with possible small bowel obstruction -Patient complaining of having right upper quadrant lower quadrant pain with abdominal distension rigidity and guarding -concerns for bowel perforation versus gastric ulcer versus ischemic bowel -general surgery consulted. Appreciated recommendations at this time -patient scheduled for surgical procedure today with general surgery -discontinue IV Zosyn and switched to IV meropenem at this time (2) Hyponatremia Onset Date: 02/27/18 Current Visit: No Status: Acute Plan: Hyponatremia most likely secondary to dehydration versus alcohol -sodium levels of 130 this morning. Patient's blood sugar however is 418 -continue with IV fluids at this time -will monitor closely (3) Diabetes Onset Date: 09/12/15 Current Visit: No Status: Chronic Plan: Insulin sliding scale and Accu-Chek+ -blood sugar this morning is 418 -change sliding scale to moderate Qualifiers: Diabetes mellitus type: type 2 Diabetes mellitus assistant terminal manager insulin use: without assistant terminal manager use Diabetes mellitus complication status: without complication Qualified Code(s): E11.9 - Type 2 diabetes mellitus without complications (4) Essential hypertension Onset Date: 02/27/18 Current Visit: No Status: Chronic Plan: Stable at this time -continue monitor closely - Plan Pending clinical improvement at this time. Will follow up with general surgery recommendation post procedure Discharge Plan: Home Plan to discharge in: Greater than 2 days - Code Status/Comfort Care Code Status Assessed: Yes Critical Care: Yes
[2019-05-22] MEDS ORDERED: NA CHLORIDE 0.9% 1,000 ML ONE (11:39)
--- NOTE | 2019-05-22 11:41 | RAD REPORT ---
EXAM DESCRIPTION: RAD - Abdomen 1 View (KUB) - 05/22/2019 6:37 am CLINICAL HISTORY: F/U FROM SMALL BOWEL SERIES Pain COMPARISON: <Comparisons> FINDINGS: Multiple dilated small bowel loops are again noted in the abdomen. The contrast from yeste rdgreg's small bowel series has not yet reached the colon. This is suspicious for a mechanical small-aniyah wel obstruction. No free intraperitoneal air seen. Findings were discussed with Dr. Castro at on 05/22/19 at 10am by telephone.
[2019-05-22] MEDS ORDERED: MIDAZOLAM HCL 2 MG/2 ML INJ ONE (11:57)
[2019-05-22] MEDS ORDERED: NA CHLORIDE 0.9% 250 ML ONE (12:09)
[2019-05-22] MEDS ORDERED: ALBUMIN HUM 5% 250 ML IV ONE (12:12)
[2019-05-22] MEDS ORDERED: HALOPERIDOL LACT 5 MG/ML INJ IV PRN (13:08)
[2019-05-22] MEDS ORDERED: MIDAZOLAM HCL 2 MG/2 ML INJ IV PRN (13:08)
--- NOTE | 2019-05-22 13:08 | P.OP ---
Reinforcing Steel Worker: Nacho BALDERRAMA Preoperative diagnosis: SBO, Peritonits Postoperative diagnosis: Same, Closed loop obstruction with perforation and pelvic abscess, hernia Primary procedure: Exp Lap, GISELLE, Repair Hernia, SB Rsxn,Ileostomy, Drainage of Abscess Anesthesia: General Estimated blood loss: 100cc Specimen: SB, Pus Findings: as above Complications: None Drain(s): Nasogastric, ASIA drain Transferred to: ICU Condition: Serious
[2019-05-22] MEDS ORDERED: SODIUM CHLORIDE 0.9% 10ML INJ IV PRN (13:10)
[2019-05-22] MEDS ORDERED: HYDROMORPHONE HCL 1 MG/ML INJ IV PRN (13:19)
[2019-05-22] MEDS ORDERED: ONDANSETRON 4 MG/2 ML VIAL IV PRN (13:19)
[2019-05-22] MEDS ORDERED: HYDROMORPHONE/PCA 10 MG/50 ML SYR IV PRN (13:19)
[2019-05-22] MEDS ORDERED: NALOXONE 0.4 MG/ML VIAL IV PRN (13:19)
[2019-05-22] MEDS ORDERED: PROPOFOL 1,000 MG/100 ML VIAL IV PRN (13:40)
[2019-05-22] MEDS ORDERED: PROPOFOL 1,000 MG/100 ML VIAL IV ONE (13:46)
[2019-05-22] MEDS ORDERED: Ringers Lactate 1,000 ML IV ONE (14:11)
[2019-05-22] MEDS ORDERED: NOREPINEPHRINE 4 MG in D5W 250 ML IV PRN (14:20)
--- NOTE | 2019-05-22 15:18 | RAD REPORT ---
EXAM DESCRIPTION: RAD - Chest Single View - 05/22/2019 2:31 pm CLINICAL HISTORY: Picc line placement COMPARISON: Chest Single View dated 05/22/2019; Abdomen 1 View (KUB) dated 05/22/2019; Abdomen 1 View (KUB) dated 05/21/2019; Chest Single View dated 05/15/2019 FINDINGS: Portable chest was obtained following placement of a left upper extremity PICC line. The c atheter tip projects over the SVC. Tip of the endotracheal tube is above the fito. Enteric tube brenna cends in the stomach.
--- NOTE | 2019-05-22 15:19 | PN ---
Date of Progress Note: 05/22/2019 Subjective: The patient is complaining of exquisite pain. She has nausea and she has not thrown up. Physical Examination: Vital Signs: Stable. Heart rate is slightly up. Abdomen: She has not had a bowel movement. She is not passing gas. Her abdomen is distended, diffu sely tender and harder than it was yesterday. Laboratory Data: White count is down to 12,000, H and H is 7 and 21. CO2 is 22, lactic acid is slig htly up to 2.7. Assessment: X-ray reviewed with the radiologist, appears that there may not be contrast in the colon yet after 16 hours, therefore assessment is small bowel obstruction in a patient with clinical perit onitis. Recommendations: N.p.o., NG tube. Hold Lovenox to the OR for exploratory laparotomy and possible aniyah wel resection, possible ostomy. Plan of care discussed with Dr. Palomo and Dr. Krause. Family unders tands risks, benefits, and alternatives and agrees procedures. Please note, the entire medical recor d on the computer was reviewed in detail prior to any decision making. ANGIE/FAUSTO Voice ID: [id number] Report ID: [id number]
[2019-05-22 15:33] LABS: Magnesium 1.8 mg/dL (1.8-2.4); Phosphorus 2.4 mg/dL (2.5-4.9)
[2019-05-22 15:38] LABS: Absolute Lymphocytes (CBC) 0.2 K/uL (0.7-4.9); MPV 8.1 fL (7.6-11.3)
[2019-05-22 15:45] LABS: Basophils % 0.5 % (0-1.3); Hematocrit 27.4 % (36.0-45.0); Lymphocytes % 8.9 % (15.3-44.8); RBC Red Blood Cell Count 3.29 M/uL (3.86-4.86)
[2019-05-22] MEDS ORDERED: ALBUMIN HUMAN 25% 100 ML IV ONE ×2 (15:52→17:00)
[2019-05-22] MEDS ORDERED: Meropenem 1000 MG/VIAL IV SCH (17:00)
[2019-05-22 18:21] LABS: Blood Morphology Comment NOTED (NOT SEEN); Ovalocytes 1+; Platelet Estimate ADEQ; Platelets, Giant FEW
[2019-05-22 18:22] LABS: Burr Cells 2+
[2019-05-22 19:15] LABS: Absolute Lymphocytes (CBC) 0.3 K/uL (0.7-4.9); Basophils % 0.2 % (0-1.3); Hematocrit 28.9 % (36.0-45.0); Lymphocytes % 5.4 % (15.3-44.8); MPV 7.7 fL (7.6-11.3); RBC Red Blood Cell Count 3.51 M/uL (3.86-4.86)
[2019-05-22] MEDS ORDERED: NOREPINEPHRINE 4 MG/4 ML VIAL ONE (20:28)
[2019-05-22] MEDS ORDERED: D5W 250 ML IV ONE (20:29)
[2019-05-22] MEDS: PANTOPRAZOLE 40 MG INJ IVP SCH (20:34)
[2019-05-22] MEDS: Meropenem 1,000 MG in NA CHLORIDE 0.9% 100 ML IV SCH (20:34)
--- NOTE | 2019-05-22 20:43 | RAD REPORT ---
EXAM DESCRIPTION: US - Renal Ultrasound-Complete - 05/22/2019 8:32 pm CLINICAL HISTORY: JOSE COMPARISON: Abdomen Pelvis Scan dated 10/14/2016 FINDINGS: Both kidneys are normal in size, shape and echotexture. The right kidney measures 10.3 x 4.9 x 4.4 cm. No hydronephrosis, focal mass or perinephric fluid. Sm all benign right renal cysts, largest measuring 13 mm. The left kidney measures 10.1 x 5.2 x 4.9 cm. No hydronephrosis, focal mass or perinephric fluid. The urinary bladder is incompletely distended without gross abnormality seen. IMPRESSION: Unremarkable renal sonogram.
[2019-05-22] MEDS ORDERED: Meropenem 1 GM/100 ML BAG ONE (20:44)
--- NOTE | 2019-05-22 21:18 | OP ---
Date of Procedure: 05/22/2019 Surgeon: Efraín Castro MD Refrigeration Plant Operator: CONCHIS Miranda. Preoperative Diagnosis: Small-bowel obstruction, peritonitis. Postoperative Diagnosis: Small-bowel obstruction, peritonitis with closed loop obstruction with perf oration and pelvic abscess and incisional hernia. Procedure: Exploratory laparotomy, lysis of adhesions, repair of incisional hernia, small bowel rese ction, ileostomy and drainage of intraabdominal and pelvic abscess. Estimated Blood Loss: 100 cc. Specimen: Small bowel and pus. Findings: As above. Anesthesia: General. Complications: None. Drains: ASIA #10 flat x2. Disposition: The patient was taken to ICU in serious condition. Procedure In Detail: The patient was brought to the OR and placed in supine position. General anest hesia was begun. The patient was prepped and draped in usual sterile fashion and then 20 blade was u sed to make a generous midline incision from the epigastrium below the umbilicus. Subcutaneous tissu e divided. Fascia was identified and divided. There was incisional hernia in the epigastrium. The hernia sac was excised and the peritoneal cavity was entered through the hernia and then there was ex tensive adhesion in the midline, which was taken down with ligature until a full exploratory laparoto my could be performed. The stomach was within normal limits. At the ligament of Treitz, the small b owel was dilated, was followed to the mid ileum portion and then there was ischemic closed loop obstr uction bowel with perforation with pus in the pelvis and this was very difficult to dissect. DEYANIRA sta pling device was used to divide the healthy part of the ileum at the beginning of the ischemic bowel. In the close loop obstruction, there was 1 adhesive band that had to be lysed in order to free this area, which was done and then the entire diseased portion of the small bowel was excised all the way down to the ileocecal valve. There was a lots of pus and enteric contents present in the pelvis, wh ich were aspirated with a 5-6 L of saline irrigation. The small bowel disease portion was removed, s ent to Pathology. Cultures were done, sent to the Microbiology. The remainder of the peritoneal cav ity did not show any evidence of disease. There was some concern that the pelvic abscess could have eroded into the rectum so we insufflated air through the anus in a pool of saline, and there was no e vidence of any injury to the rectum or any perforation there or in the distal sigmoid colon. Liver w as within normal limits. The right side and the left side of the abdominal cavity were within normal limits. There was no other evidence of disease obvious. Subsequently a Luis-Courtney drain #10 fla t x2 was placed in the pelvis. Suture was 3-0 nylon and ileostomy was created in the right lower ryann drant approximately 2 cm in diameter and skin was then excised. Lumpectomy was performed down to the fascia. Fascia was opened. In a center fashion ileostomy was done after the midline fascia was mavis sed. Portion of the ileum was brought out through the hole and then the midline fascia was closed wi th #2 nylon. Wound irrigated, bleeding controlled with cautery and xochitl loosely reapproximated th e skin. Sterile dressing applied and then ileostomy matured with 3-0 chromic, clockwise fashion in t he standard fashion. Then, a sterile dressing applied over the patient. The patient was not awaken, was kept intubated and then taken to ICU in serious condition. /MODL Voice ID: [id number] Report ID: [id number]
[2019-05-22] MEDS: FENTANYL CITR 100 MCG/2 ML IV PRN (22:41)
[2019-05-22] MEDS: LORazepam 2 MG/ML VIAL IV PRN (23:30)
[2019-05-23] MEDS ORDERED: NA CHLORIDE 0.9% 250 ML IV ONE (00:17)
[2019-05-23] MEDS: INSULIN -REGULAR HUMAN 50 UNIT/0.5 ML ML SQ SCH ×4 (00:35→17:27)
[2019-05-23] MEDS: IPRATROPIUM BROM 0.5MG/2.5ML NEB PRN (02:05)
[2019-05-23] MEDS: FENTANYL CITR 100 MCG/2 ML IV PRN (02:31)
[2019-05-23] MEDS: LORazepam 2 MG/ML VIAL IV PRN ×2 (03:15→07:12)
[2019-05-23] MEDS ORDERED: ALBUTEROL 2.5 MG/3 ML NEB SOL NEB PRN (04:29)
[2019-05-23] MEDS ORDERED: ALBUTEROL 2.5 MG/3 ML NEB SOL NEB ONE (04:29)
[2019-05-23] MEDS: CARVEDILOL 12.5 MG TAB PO SCH (06:00)
[2019-05-23 06:29] LABS: Absolute Lymphocytes (CBC) 0.4 K/uL (0.7-4.9); Basophils % 0.1 % (0-1.3); Hematocrit 26.8 % (36.0-45.0); Lymphocytes % 3.3 % (15.3-44.8); MPV 8.2 fL (7.6-11.3); RBC Red Blood Cell Count 3.26 M/uL (3.86-4.86)
[2019-05-23 06:49] LABS: Albumin 1.8 g/dL (3.4-5.0); Bilirubin Total 0.9 mg/dL (0.2-1.0); Magnesium 1.8 mg/dL (1.8-2.4); Phosphorus 2.5 mg/dL (2.5-4.9); Potassium 4.4 mmol/L (3.5-5.1); Protein, Total 4.5 g/dL (6.4-8.2)
[2019-05-23 07:25] LABS: Blood Morphology Comment NOT SEEN (NOT SEEN); Platelet Estimate ADEQ
[2019-05-23] MEDS: ARFORMOTEROL TARTRATE 15 MCG/2 ML VIAL.NEB NEB SCH (07:30)
[2019-05-23] MEDS: IPRATROPIUM BROM 0.5MG/2.5ML NEB SCH ×3 (07:30→20:00)
[2019-05-23] MEDS: Meropenem 1,000 MG in NA CHLORIDE 0.9% 100 ML IV SCH ×2 (08:27→19:56)
[2019-05-23] MEDS: PANTOPRAZOLE 40 MG INJ IVP SCH ×2 (08:27→19:57)
--- NOTE | 2019-05-23 09:18 | RAD REPORT ---
EXAM DESCRIPTION: [facility] Single View05/23/2019 8:30 am CLINICAL HISTORY: Shortness of breath COMPARISON: May 22, 2019 FINDINGS: Questionable opacity behind the left side of the heart. Right lung appears clear. The hear t is mildly enlarged. PICC line and tubes in good position IMPRESSION: Questionable opacity behind the left side of the heart may indicate an area of atelecta sis
[2019-05-23] MEDS: NA CHLORIDE 0.9% 1,000 ML IV SCH (10:00)
--- NOTE | 2019-05-23 11:28 | P.PN ---
Subjective Date of Service: 05/23/19 Primary Care Provider: Dr. Zamudio Chief Complaint: Nausea, vomiting and abdominal pain Patient seen and examined at bedside with RN. Chart reviewed. Case discussed with general surgery. Patient continues to be intubated and sedated at this time. Decrease urine output overnight. Will continue monitor patient closely Review of Systems 10-point ROS is otherwise unremarkable Physical Examination - Vital Signs Temperature: 97.1 F Blood Pressure: 110/50 Pulse: 100 Respirations: 20 Pulse Ox (%): 100 - Physical Exam General: In no apparent distress, Other (Intubated and sedated) Respiratory: Normal air movement, Crackles/rales, Expiratory wheezes Cardiovascular: Regular rate/rhythm, Normal S1 S2, Edema (Generalized) Gastrointestinal: Other (AISA drain in place on the left-hand side along with ileostomy bag on the right-hand side.) Musculoskeletal: No tenderness Integumentary: No rashes Lymphatics: No axilla or inguinal lymphadenopathy - Studies Medications List Reviewed: Yes Assessment And Plan - Current Problems (Diagnosis) (1) Septic shock Current Visit: Yes Status: Acute Plan: Patient with septic shock currently hemodynamically unstable or most likely secondary to perforation and abscess formation in the abdomen -currently requiring pressure support with Levophed -no IV fluids as patient has been resuscitated successfully and now having generalized edema with decreased urine output -currently on IV meropenem -blood culture and wound cultures are pending at this time -will follow up with culture and continue IV antibiotic (2) Respiratory distress Current Visit: Yes Status: Acute Plan: Patient with respiratory distress has been intubated during surgery currently not being able to be extubated -patient remains intubated and sedated at this -pulmonology is consulted. Appreciate recommendation -will await for weaning trial once patient is more hemodynamically stable (3) Acute kidney injury Current Visit: Yes Status: Acute Plan: JOSE most likely secondary to ATN versus hypovolemia -BUN and creatinine elevated today. Patient has all of her urine today -patient with generalized edema. -will give IV albuminx1 again today -nephrology is consulted. Recommendation appreciated -will monitor patient's creatinine closely (4) SBO (small bowel obstruction) Current Visit: Yes Status: Acute Plan: Patient initially with ileus now with possible small bowel obstruction which has resolved post surgically -status post colon resection with abscess removal POD 1. -general surgery consulted. Appreciated recommendations at this time -started on IV meropenem will continue that here in the hospital -ASIA drain and ileostomy tube in place - (5) Perforation bowel Current Visit: Yes Status: Acute Plan: See SBO (6) Hyponatremia Onset Date: 02/27/18 Current Visit: No Status: Acute Plan: Hyponatremia most likely secondary to dehydration versus alcohol -sodium levels of 136 this morning. -IV fluids has been discontinued given the generalized anasarca. 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 Will continue to monitor patient closely Discharge Plan: Home Plan to discharge in: Greater than 2 days - Code Status/Comfort Care Code Status Assessed: Yes Critical Care: No
--- NOTE | 2019-05-23 11:38 | P.PN ---
Subjective Date of Service: 05/23/19 Primary Care Provider: Dr. Zamudio Chief Complaint: Nausea, vomiting and abdominal pain pt with small bowel obstruction, Hx of chronic hyponatremia in ER Na 105 , improved on IVF pt then developed abd distension, required Small bowel resection, pt developed JOSE and now oliguric Today Intubated and sedated Pt with peripheral edema , received ~6liters of IVF oliguric will give lasix 80mg IV X1 No need for renal replacement therapy at this time if no improvement in RFT, electrolytes abnorlamities with fluid overload then pt might require HD corrected Ca wnl Phos wnl Physical Examination - Vital Signs Temperature: 97.1 F Blood Pressure: 110/50 Pulse: 100 Respirations: 20 Pulse Ox (%): 100 - Physical Exam General: Other (intubated and sedated ) HEENT: Atraumatic Neck: Supple, JVD not distended, No Thyromegaly, Without JVD or thyroid abnormality Respiratory: Clear to auscultation bilaterally, Normal air movement Cardiovascular: Regular rate/rhythm, Normal S1 S2, No gallops, No rubs, No murmurs, Edema Gastrointestinal: Other (ileostomy bag, with greenish fluid collection ) - Studies Medications List Reviewed: Yes Assessment And Plan Physician Review Additional Text: JOSE possibly due to Septic GN +/- Abd compartment pt with peripheral edema , will dc IVF and start on levophed will give lasix 80mg IVP X1 no need for renal replacement therapy at this time hypoosmolar Hyponatremia resolved hypokalemia resolved Small bowel obstruction with perforated bowel and pelvic abscess S/P small bowel resection Cont Abx Septic shock on levophed and Abx prognosis guarded
[2019-05-23] MEDS ORDERED: Pharmacy Consult 1 EA XX PRN (11:48)
[2019-05-23] MEDS ORDERED: ALBUMIN HUMAN 25% 100 ML IV SCH (12:00)
[2019-05-23] MEDS ORDERED: FUROSEMIDE 40 MG/4 ML VIAL IV ONE ×2 (12:00→20:00)
--- NOTE | 2019-05-23 12:02 | P.CNS ---
Date of Consult: 05/23/19 Primary Care Provider: Dr. Zamudio Chief Complaint: Shock History of Present Illness: Patient is 73 years of age he just underwent surgery Procedure: Exploratory laparotomy, lysis of adhesions, repair of incisional hernia, small bowel resection, ileostomy and drainage of intraabdominal and pelvic abscess. Patient has had 6 L of IV fluids with the blood transfusions she is still hypotensive with 6 mics of Levophed oxygenation sec satisfactory no prior history of cardiopulmonary disorders apart from AFib is currently unresponsive patient is a diabetic Allergies ciprofloxacin [From Cipro] Allergy (Verified 05/14/19 22:37) Itching/Hives/Rash Home Medications: Amlodipine Besylate [Norvasc] 10 mg PO DAILY WITH BREAKFAST 09/01/15 Metformin HCl [Glucophage] 1,000 mg PO BID 09/01/15 glipiZIDE [Glucotrol*] 5 mg PO DAILY 09/01/15 Carvedilol [Coreg*] 25 mg PO BID 02/26/18 Telmisartan 80 mg PO DAILY 02/26/18 - Past Medical/Surgical History Diabetic: Yes -: HTN -: Diabetes mellitus type 2, non insulin dependent -: Chronic Hearing loss -: Hysterectomy -: Cholecystectomy -: remington cataract sx -: 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 She is . - Family History Mother Medical History: Hypertension, Diabetes Sister Medical History: Hypertension, Diabetes Dad & Mom Medical History: Hypertension, Diabetes - Social History Alcohol use: No CD- Drugs: No Caffeine use: Yes Place of Residence: Home Review of Systems is unable to be obtained Physical Examination Temp Pulse Resp BP Pulse Ox 97.1 F 100 H 20 110/50 L 100 05/23/19 11:41 05/23/19 11:41 05/23/19 11:41 05/23/19 11:41 05/23/19 11:41 General: Unresponsive Neck: Supple Respiratory: Clear to auscultation bilaterally, Diminished Cardiovascular: Edema (Bilateral edema), Irregular heart rate/rhythm Gastrointestinal: Other (Patient has a the ostomy absent bowel sounds) - Problems (1) Septic shock Current Visit: Yes Status: Acute Plan: Patient is 73 years of age admitted with intra-abdominal abscess secondary to perforation she has an ileostomy currently and shock agree with meropenem patient was already on Zosyn added vancomycin to cover enterococcus faecalis. You with fluid bolus I have given us some lactated ringers 1 L Raynaud to prevent hyperchloremic metabolic acidosis renal function is worse patient was also transfused chest x-rays clear minimal oxygen requirement of 30% ABGs order
[2019-05-23 12:37] LABS: Arterial Blood Carboxyhemoglob 1.6 % (0-1.5); Blood Gas Oxyhemoglobin 96.2 % (94-97); Blood O2 Saturation 98.6 % (92-98.5)
[2019-05-23] MEDS ORDERED: Ringers Lactate 500 ML IV ONE (13:22)
--- NOTE | 2019-05-23 13:46 | PN ---
Date of Progress Note: 05/23/2019 Subjective: The patient has just recently got Ativan, so she is sedated. She is on the vent. Last night, she did wake up and respond appropriately. She has had a couple of small fluid boluses with m inimal response as far as urine output is concerned. Physical Examination: Her vital signs are significant for heart rate from the 90s into the low 100. Blood pressure is requ iring Levophed support, it was weaned off temporarily in the middle of the night, but had to be resta rted early this morning and she is still on minimal support with Levophed. Her fluid status is minim al because there is concern for renal failure. Respiratory status is adequate and ventilation is cynthia quate. Her dressing is clean, dry, and intact. Her ileostomy is working with stool and air in it. Abdomen is slightly distended. Laboratory Data: White count of 13.5, hemoglobin and hematocrit is 8.8 and 26.8, there is no left sh ift. Bands have decreased from 30 to 16. Her INR is 0.99, that was on admission. Chemistry shows B UN of 35, which has gone up a little bit and creatinine of 1.79. Calcium is a little low, however, a lbumin is significantly low. Her ASIA output put out about 155 cc last shift. Assessment: 1.Status post exploratory laparotomy. 2.Bowel resection. 3.Drainage intrapelvic and abdominal abscess. Recommendations: Continue IV antibiotics. We will discuss with Nephrology and Internal Medicine reg arding possibly giving the patient more fluid as I believe her intravascular volume is depleted, she is third spacing, and she would require increasing fluid and she can be given diuretics. If she gets too much fluids, then I will discuss this with the two services. Clinically, the patient is in seri ous condition. We will make further recommendation after discussion with the appropriate services. /MODL Voice ID: [id number] Report ID: [id number]
[2019-05-23] MEDS: VANCOMYCIN 1.25 GM in NA CHLORIDE 0.9% 250 ML IVPB SCH (14:48)
[2019-05-24 05:28] LABS: Absolute Lymphocytes (CBC) 0.6 K/uL (0.7-4.9); Basophils % 0.2 % (0-1.3); Hematocrit 22.7 % (36.0-45.0); Lymphocytes % 4.5 % (15.3-44.8); RBC Red Blood Cell Count 2.78 M/uL (3.86-4.86)
[2019-05-24] MEDS: INSULIN -REGULAR HUMAN 50 UNIT/0.5 ML ML SQ SCH ×4 (05:37→18:00)
[2019-05-24 05:46] LABS: ALT/SGPT 10 U/L (12-78); Albumin 1.9 g/dL (3.4-5.0); Alkaline Phosphatase 63 U/L (45-117); BUN Blood Urea Nitrogen 42 mg/dL (7-18); Bicarbonate 20 mmol/L (21-32); Bilirubin Total 0.6 mg/dL (0.2-1.0); Glucose Level 145 mg/dL (74-106); Phosphorus 2.3 mg/dL (2.5-4.9); Potassium 3.7 mmol/L (3.5-5.1); Sodium Level 137 mmol/L (136-145)
[2019-05-24 05:51] LABS: AST/SGOT < 3 U/L (15-37)
[2019-05-24] MEDS ORDERED: FUROSEMIDE 40 MG/4 ML VIAL IV ONE (06:45)
[2019-05-24 07:41] LABS: Blood Morphology Comment NOT SEEN (NOT SEEN); Platelet Estimate ADEQ
[2019-05-24] MEDS: IPRATROPIUM BROM 0.5MG/2.5ML NEB SCH ×2 (07:56→19:55)
[2019-05-24] MEDS ORDERED: FLUCONAZOLE 100mg IVPB 100 MG/50 ML BAG IV SCH (09:00)
[2019-05-24] MEDS ORDERED: NA CHLORIDE 0.9% 250 ML ONE (09:07)
[2019-05-24] MEDS: Meropenem 1,000 MG in NA CHLORIDE 0.9% 100 ML IV SCH ×2 (10:01→21:03)
[2019-05-24] MEDS: PANTOPRAZOLE 40 MG INJ IVP SCH ×2 (10:02→21:03)
[2019-05-24] MEDS ORDERED: FLUCONAZOLE IV ONE (11:30)
--- NOTE | 2019-05-24 11:32 | PN ---
Date of Progress Note: 05/24/2019 Subjective: Patient is still intubated. She reviewed earlier this morning. She had resp onded a day ago appropriately however she has been sedated yesterday and today her vital signs are st able. She is afebrile. She is off the Levophed. She got 2 doses of Lasix 80 mg each yesterday and her urine output has increased slightly each, put out 295 over the last 12 hours. Her ileostomy is w orking well. Nasogastric tube had 475 cc yesterday. The drains are putting out minimal amount of ser osanguineous fluid. Her abdomen is benign. Dressing are clean, dry, and intact. Laboratory Data: Shows a white count of 13.9, H and H is 7.4 and 22.7. Left shift present, improvin g slowly. Bands are down to 7. She does have 1 unit of blood ordered. Her BUN and creatinine are sl ightly elevated at 42 and 2.08. Her CO2 is 20. Her blood cultures are reportedly showing fungus and she is on Diflucan for that. Assessment: Status post exploratory laparotomy, small-bowel resection, drainage of intraabdominal pe lvic abscess. Recommendation: As the patient has been weaned off the Levophed I think consideration should be give n to begin TPN on the patient. Continue broad-spectrum antibiotics including meropenem and vancomyci n as well as the antifungal Diflucan. Patient should be considered within the next day for possible weaning off the vent. If she does not wean off the vent then consideration could be given to tube fe eds and as her ileostomy is working well. I will discuss the case with Dr. Grewal and _regarding that. Clinically, she is still in serious condition but slowly improving. /MODL Voice ID: [id number] Report ID: [id number]
--- NOTE | 2019-05-24 12:03 | P.PN ---
Subjective Date of Service: 05/24/19 Primary Care Provider: Dr. Zamudio Chief Complaint: Shock Subjective: Improving (Patient is improving more alert responsive he was weaned off the vasopressors last night urine output is minimal appears to be in distress from this surgery at the bedside) Review of Systems is unable to be obtained Physical Examination - Vital Signs Temperature: 98.0 F Blood Pressure: 113/52 Pulse: 86 Respirations: 20 Pulse Ox (%): 100 - Physical Exam General: Mild distress, Other (Arousable) HEENT: Atraumatic Neck: Supple Respiratory: Clear to auscultation bilaterally, Diminished Cardiovascular: No edema, Normal S1 S2 Gastrointestinal: Normal bowel sounds, Soft and benign - Studies Medications List Reviewed: Yes Assessment & Plan - Problems (Diagnosis) (1) Septic shock Current Visit: Yes Status: Acute Plan: Patient is improving weaned off vasopressors yeast isolated in blood cultures patient is on broad-spectrum therapy with meropenem vancomycin and Diflucan renal function is worse patient is on minimal oxygen is been a drop in her hemoglobin patient will be transfused receiving Lasix vital signs stable to start tube feeds as per general surgery recommend changing Micofugin iv due to his broad-spectrum yeast coverage she is at risk for Therese glabrata infection to which Diflucan is often resistant discuss with Dr. Krause will plan to wean her off tomorrow needs another chest x-ray
[2019-05-24] MEDS: FENTANYL CITR 100 MCG/2 ML IV PRN ×3 (12:04→19:09)
--- NOTE | 2019-05-24 12:52 | P.PN ---
Subjective Date of Service: 05/24/19 Primary Care Provider: Dr. Zamudio Chief Complaint: Shock Patient seen and examined at bedside with RN. Chart reviewed. Case discussed with general surgery. Patient continues to be intubated at this time. Blood cultures positive for yeast. For under Levophed has been discontinued overnight. Doing well overall Review of Systems 10-point ROS is otherwise unremarkable Physical Examination - Vital Signs Temperature: 98.0 F Blood Pressure: 113/52 Pulse: 86 Respirations: 20 Pulse Ox (%): 100 - Physical Exam General: In no apparent distress, Other (Intubated) Neck: Supple, JVD not distended Respiratory: Normal air movement, Expiratory wheezes, Inspiratory wheezes Cardiovascular: Regular rate/rhythm, Normal S1 S2 Gastrointestinal: Normal bowel sounds, Other (2 maxwell drains on the left lower quadrant along with an ileostomy bags with adequate output), Tenderness, Guarding Musculoskeletal: Swelling (Generalized anasarca) Integumentary: No rashes Neurological: Normal tone, Normal affect Lymphatics: No axilla or inguinal lymphadenopathy - Studies Medications List Reviewed: Yes Assessment And Plan - Current Problems (Diagnosis) (1) Septic shock Current Visit: Yes Status: Acute Plan: Patient with septic shock most likely secondary to perforation and intra- abdominal abscess formation. Improving today -no IV fluids as patient has been resuscitated successfully and now having generalized edema with decreased urine output -currently on IV meropenem and IV vancomycin. Added IV micofungin -blood culture positive for yeast infection pending final result -wound cultures pending at this time from the OR (2) Respiratory distress Current Visit: Yes Status: Acute Plan: Patient with respiratory distress has been intubated during surgery currently not being able to be extubated -patient remains intubated at this -pulmonology is consulted. Appreciate recommendation -patient is currently overbreathing the vent. Will try weaning trial and potential extubation tomorrow if patient is able to tolerate the weaning trial (3) Acute kidney injury Current Visit: Yes Status: Acute Plan: JOSE most likely secondary to ATN versus hypovolemia -BUN and creatinine elevated today. -patient with generalized edema. -currently receiving PRBCs this morning. With albumin to follow and Lasix after the -nephrology is consulted. Recommendation appreciated -IV Lasix 80 mg p.r.n. (4) SBO (small bowel obstruction) Current Visit: Yes Status: Acute Plan: Patient initially with ileus now with possible small bowel obstruction which has resolved post surgically -status post colon resection with abscess removal POD 3. -general surgery consulted. Appreciated recommendations at this time -MAXWELL drain and ileostomy tube in place (5) Perforation bowel Current Visit: Yes Status: Acute Plan: See SBO (6) Hyponatremia Onset Date: 02/27/18 Current Visit: No Status: Acute Plan: Hyponatremia most likely secondary to dehydration versus alcohol -sodium levels of 136 this morning. -IV fluids has been discontinued given the generalized anasarca. -Will continue to monitor patient closely -IV albumin (7) Diabetes Onset Date: 09/12/15 Current Visit: No Status: Chronic Plan: Insulin sliding scale and Accu-Chek+ -blood sugar remains elevated -change sliding scale to moderate Qualifiers: Diabetes mellitus type: type 2 Diabetes mellitus group home insulin use: without oysterman use Diabetes mellitus complication status: without complication Qualified Code(s): E11.9 - Type 2 diabetes mellitus without complications (8) Essential hypertension Onset Date: 02/27/18 Current Visit: No Status: Chronic Plan: Stable at this time -continue monitor closely - Plan Pending clinical improvement at this time. Will continue to monitor patient closely Discharge Plan: Home Plan to discharge in: Greater than 2 days - Code Status/Comfort Care Code Status Assessed: Yes Critical Care: Yes
[2019-05-24] MEDS: MICAFUNGIN SODIUM 100 MG in NA CHLORIDE 0.9% 100 ML IV SCH (12:56)
--- NOTE | 2019-05-24 16:50 | ECHO ---
HEIGHT: 5 ft 1 in WEIGHT: 155 lb 1.6 oz DATE OF STUDY: 05/24/[address]: Geno Krause MD 2-DIMENSIONAL: YES M.MODE: YES DOPPLER: YES COLOR FLOW: YES TDS: NO PORTABLE: YES DEFINITY: NO BUBBLE STUDY: NO DIAGNOSIS: RULE OUT CONGESTIVE HEART FAILURE CARDIAC HISTORY: CATHERIZATION: NO SURGERY: NO PROSTHETIC VALVE: NO PACEMAKER: NO MEASUREMENTS (cm) DIASTOLIC (NORMALS) SYSTOLIC (NORMALS) IVSd 0.8 (0.6-1.2) LA Diam 3.6 (1.9-4.0) LVEF 57% LVIDd 4.4 (3.5-5.7) LVIDs 3.1 (2.0-3.5) %FS 30% LVPWd 1.1 (0.6-1.2) Ao Diam 3.0 (2.0-3.7) 2 DIMENSIONAL ASSESSMENT: RIGHT ATRIUM: NORMAL LEFT ATRIUM: NORMAL RIGHT VENTRICLE: NORMAL LEFT VENTRICLE: NORMAL TRICUSPID VALVE: NORMAL MITRAL VALVE: NORMAL PULMONIC VALVE: NORMAL AORTIC VALVE: NORMAL PERICARDIAL EFFUSION: EPICARDIAL FAT PAD, NO EFFUSION AORTIC ROOT: NORMAL LEFT VENTRICULAR WALL MOTION: NORMAL. DOPPLER/COLOR FLOW: MILD AORTIC REGURGITATION AND MITRAL REGURGITATION. COMMENTS: NORMAL LEFT VENTRICULAR EJECTION FRACTION. MILD AORTIC REGURGITATION AND MITRAL REGURGITATION. TECHNOLOGIST: LILO YEPEZ
[2019-05-25] MEDS: FENTANYL CITR 100 MCG/2 ML IV PRN (01:33)
--- NOTE | 2019-05-25 03:48 | PN ---
Date of Progress Note: 05/25/2019 Chief Complaint: Acute kidney injury. History Of Present Illness: Acute kidney injury, moderately severe, nonoliguric. Renal function has not improved over the last 24 hours. The patient has history of respiratory failure, sepsis, bowel obstruction. The patient remains in ICU and received IV Lasix 80 mg x1 dose and urine output somewha t improved. The patient was fluid overloaded and was started on Lasix to control volemia and treat a nasarca. Review of Systems: Unobtainable. Physical Examination: General: The patient is intubated and sedated. Lungs: Diminished breath sounds at bases. Heart: S1, S2. Abdomen: Soft, benign. Extremities: Edema in both legs. Laboratory Data: Hemoglobin 7.4, WBC 13.9, platelet count 198,000. Sodium 137, potassium 3.7, chlor laura 110, CO2 20, BUN 42, creatinine 2.08, glucose 145, calcium 7.1, phosphorus 2.3. Impression And Plan: 1.[id number] kidney injury. Renal function has not improved over the last 24 hours. The nan ent developed fluid overload and received IV Lasix. Monitor urine output. The patient has nonoligur ic output and acute tubular necrosis secondary to sepsis. The patient may require dialysis. Monitor electrolytes. Avoid nephrotoxic medication. 2.Sepsis. Continue pressors. EB/MODL Voice ID: [id number] Report ID: [id number]
[2019-05-25 05:34] LABS: Absolute Lymphocytes (CBC) 0.8 K/uL (0.7-4.9); Basophils % 1.1 % (0-1.3); Lymphocytes % 4.2 % (15.3-44.8); MPV 8.5 fL (7.6-11.3); RBC Red Blood Cell Count 4.07 M/uL (3.86-4.86)
[2019-05-25 05:52] LABS: Albumin 1.9 g/dL (3.4-5.0); Bilirubin Total 0.9 mg/dL (0.2-1.0); Phosphorus 2.8 mg/dL (2.5-4.9); Potassium 3.9 mmol/L (3.5-5.1); Protein, Total 5.8 g/dL (6.4-8.2)
[2019-05-25] MEDS: INSULIN -REGULAR HUMAN 50 UNIT/0.5 ML ML SQ SCH ×4 (06:00→18:00)
[2019-05-25 06:27] LABS: Blood Morphology Comment NOT SEEN (NOT SEEN); Platelet Estimate ADEQ
--- NOTE | 2019-05-25 07:25 | RAD REPORT ---
EXAM DESCRIPTION: RAD - Chest Single View - 05/25/2019 6:40 am CLINICAL HISTORY: Respiratory failure COMPARISON: May 23 TECHNIQUE: AP portable chest image was obtained 0625 hours . FINDINGS: ET tube remains in good position mid aortic arch level. Tip of the NG tube extends below t he diaphragm. Side port of the tubing is at the GE junction. Lung chahal are clear. No pulmonary edema, failure or volume overload findings. Heart and vasculature are normal. No measurable pleural effusion and no pneumothorax. No acute bony abnormality seen. No a cute aortic findings suspected. IMPRESSION: No acute cardiopulmonary process. ET tube in good position. NG tube tip is in the proximal stomach with side port at the GE junction.
[2019-05-25] MEDS: IPRATROPIUM BROM 0.5MG/2.5ML NEB SCH ×2 (07:50→20:00)
--- NOTE | 2019-05-25 08:46 | P.PN ---
Subjective Date of Service: 05/25/19 Primary Care Provider: Dr. Zamudio Chief Complaint: Respiratory failure fungemia Subjective: Improving (Patient is improving as been on spontaneous breathing trial for on our hemodynamically stable renal function improving alert responsive cooperative) Review of Systems is unable to be obtained Physical Examination - Vital Signs Temperature: 97 F Blood Pressure: 171/82 Pulse: 118 Respirations: 21 Pulse Ox (%): 98 - Physical Exam General: Alert Respiratory: Clear to auscultation bilaterally, Diminished Cardiovascular: Normal S1 S2, Edema - Studies Medications List Reviewed: Yes Assessment & Plan - Problems (Diagnosis) (1) Fungemia Current Visit: Yes Status: Acute Plan: Patient's blood cultures are positive continue with Ramesh chacon in vancomycin and meropenem patient's chest x-rays clear (2) Respiratory failure Current Visit: Yes Status: Acute Plan: Patient is doing much better tolerate the spontaneous breathing trial wean and extubate poly start on tube feeds labs reviewed renal function is improving white count elevated hemoglobin stable Qualifiers: Chronicity: acute Physician Review Additional Text: JOSE possibly due to Septic GN +/- Abd compartment pt with peripheral edema , will dc IVF and start on levophed will give lasix 80mg IVP X1 no need for renal replacement therapy at this time hypoosmolar Hyponatremia resolved hypokalemia resolved Small bowel obstruction with perforated bowel and pelvic abscess S/P small bowel resection Cont Abx Septic shock on levophed and Abx prognosis guarded
[2019-05-25] MEDS ORDERED: FLUCONAZOLE 200mg IVPB 200 MG/100 ML BAG IV SCH (09:00)
[2019-05-25] MEDS: Meropenem 1,000 MG in NA CHLORIDE 0.9% 100 ML IV SCH ×2 (09:11→20:46)
[2019-05-25] MEDS: PANTOPRAZOLE 40 MG INJ IVP SCH ×2 (09:12→20:45)
[2019-05-25] MEDS ORDERED: ALBUMIN HUMAN 25% 100 ML IV ONE (09:22)
[2019-05-25] MEDS: HYDROCODONE/APAP 10/325 TAB PO PRN ×3 (10:11→20:46)
--- NOTE | 2019-05-25 11:05 | P.PN ---
Subjective Date of Service: 05/25/19 Primary Care Provider: Dr. Zamudio Chief Complaint: Respiratory failure fungemia Subjective: Improving pt with small bowel obstruction, Hx of chronic hyponatremia in ER Na 105 , improved on IVF pt then developed abd distension, required Small bowel resection, pt developed JOSE and now oliguric Today pt is extubated Edema much improved Cr and UO improving off levophed Fungemia hold on fluid and lasix for now liquid diet Pt can start on D5+ NS if there is concern about her nutritional status Physical Examination - Vital Signs Temperature: 97 F Blood Pressure: 171/82 Pulse: 118 Respirations: 21 Pulse Ox (%): 98 - Physical Exam General: Alert, Mild distress HEENT: Atraumatic Neck: Supple, Without JVD or thyroid abnormality Respiratory: Clear to auscultation bilaterally Cardiovascular: Regular rate/rhythm, Normal S1 S2, No gallops, No rubs, No murmurs, Other (trace pedal edema ), Edema Gastrointestinal: Normal bowel sounds, Soft and benign Integumentary: No rashes - Studies Medications List Reviewed: Yes Assessment And Plan Physician Review Additional Text: JOSE Improving turn to non-oliguric possibly due to Septic GN Off lasix and IVF no need for renal replacement therapy at this time hypoosmolar Hyponatremia resolved Small bowel obstruction with perforated bowel and pelvic abscess S/P small bowel resection Cont Abx Septic shock due to Fungemia Lines removed off pressers on Mucafungin prognosis guarded
--- NOTE | 2019-05-25 11:16 | P.PN ---
Subjective Date of Service: 05/25/19 Primary Care Provider: Dr. Zamudio Chief Complaint: Respiratory failure fungemia Patient seen and examined at bedside with RN. Chart reviewed. Case discussed with general surgery. Patient extubated this morning. Doing well overall. Able to tolerate ice chips this morning along with water. Review of Systems 10-point ROS is otherwise unremarkable Physical Examination - Vital Signs Temperature: 97 F Blood Pressure: 171/82 Pulse: 118 Respirations: 21 Pulse Ox (%): 98 - Physical Exam General: Alert, In no apparent distress Neck: Supple, JVD not distended Respiratory: Clear to auscultation bilaterally, Normal air movement Cardiovascular: Regular rate/rhythm, Normal S1 S2, Edema Gastrointestinal: Normal bowel sounds, Tenderness (Generalized tenderness. ASIA drain in place. Ileostomy bag in place) Musculoskeletal: No tenderness Integumentary: No rashes Neurological: Normal speech, Normal tone, Normal affect Lymphatics: No axilla or inguinal lymphadenopathy - Studies Medications List Reviewed: Yes Assessment And Plan - Current Problems (Diagnosis) (1) Septic shock Current Visit: Yes Status: Resolved Plan: Patient with septic shock most likely secondary to perforation and intra- abdominal abscess formation. Improving today -no IV fluids as patient has been resuscitated successfully -currently on IV meropenem and IV vancomycin, and IV micofungin -blood culture positive for yeast infection pending final result -wound cultures pending at this time from the OR (2) Respiratory distress Current Visit: Yes Status: Acute Plan: Patient with respiratory distress has been intubated during surgery -patient now extubated and doing well overall. On nasal cannula -pulmonology is consulted. Appreciate recommendation (3) Acute kidney injury Current Visit: Yes Status: Acute Plan: JOSE most likely secondary to ATN versus hypovolemia -BUN and creatinine improving today. -patient with generalized edema. Will give albumin x1 -nephrology is consulted. Recommendation appreciated (4) SBO (small bowel obstruction) Current Visit: Yes Status: Acute Plan: Patient initially with ileus now with possible small bowel obstruction which has resolved post surgically -status post colon resection with abscess removal POD 4. -general surgery consulted. Appreciated recommendations at this time -ASIA drain and ileostomy tube in place (5) Perforation bowel Current Visit: Yes Status: Acute Plan: See SBO (6) Hyponatremia Onset Date: 02/27/18 Current Visit: No Status: Resolved Plan: Hyponatremia most likely secondary to dehydration versus alcohol -sodium levels of 136 this morning. -IV fluids has been discontinued given the generalized anasarca. -Will continue to monitor patient closely (7) Diabetes Onset Date: 09/12/15 Current Visit: No Status: Chronic Plan: Insulin sliding scale and Accu-Chek+ -blood sugar remains elevated -change sliding scale to moderate Qualifiers: Diabetes mellitus type: type 2 Diabetes mellitus halfway insulin use: without halfway use Diabetes mellitus complication status: without complication Qualified Code(s): E11.9 - Type 2 diabetes mellitus without complications (8) Essential hypertension Onset Date: 02/27/18 Current Visit: No Status: Chronic Plan: Stable at this time -continue monitor closely - Plan Pending clinical improvement at this time. Will continue to monitor patient closely Discharge Plan: Home Plan to discharge in: Greater than 2 days - Code Status/Comfort Care Code Status Assessed: Yes Critical Care: Yes
--- NOTE | 2019-05-25 11:24 | PN ---
Date of Progress Note: 05/25/2019 Subjective: Patient is extubated. She is awake, alert. She had a sip of water without any problems . Her vital signs are stable. Afebrile. Laboratory data reviewed. Her white count is up a little b it, however, she did get a unit of blood yesterday and H and H came up appropriately. She put out a lot urine last night. I think some of this is secondary to that. Her vital signs are stable. She i s afebrile. Her BUN and creatinine are improved. ASIA is putting out minimal serosanguineous fluid. Ileostomy is working well. Abdomen is benign. Wound is clean, dry, and intact. Assessment: Status post exploratory laparotomy, small-bowel resection, drainage of intraabdominal pe lvic abscess. Recommendations: We will begin oral diet today and of she tolerates that NG tube can be discontinued and slowly advanced. Continue antibiotics, physical therapy, incentive spirometry. The patient is clinically improving. /MODL Voice ID: [id number] Report ID: [id number]
[2019-05-25] MEDS: VANCOMYCIN 1.25 GM in NA CHLORIDE 0.9% 250 ML IVPB SCH (13:54)
[2019-05-25] MEDS: MICAFUNGIN SODIUM 100 MG in NA CHLORIDE 0.9% 100 ML IV SCH (13:55)
[2019-05-26 04:52] LABS: Absolute Lymphocytes (CBC) 0.7 K/uL (0.7-4.9); Basophils % 0.9 % (0-1.3); Hematocrit 32.9 % (36.0-45.0); MPV 8.4 fL (7.6-11.3); RBC Red Blood Cell Count 3.97 M/uL (3.86-4.86)
[2019-05-26 05:08] LABS: Albumin 2.2 g/dL (3.4-5.0); Bilirubin Total 1.1 mg/dL (0.2-1.0); Magnesium 2.1 mg/dL (1.8-2.4); Phosphorus 2.2 mg/dL (2.5-4.9); Potassium 3.8 mmol/L (3.5-5.1); Protein, Total 5.8 g/dL (6.4-8.2)
[2019-05-26 05:49] LABS: Blood Morphology Comment NOT SEEN (NOT SEEN); Platelet Estimate DECR
[2019-05-26] MEDS: INSULIN -REGULAR HUMAN 50 UNIT/0.5 ML ML SQ SCH ×5 (06:00→20:16)
[2019-05-26] MEDS: CARVEDILOL 25 MG TAB PO SCH ×2 (06:32→17:29)
--- NOTE | 2019-05-26 08:09 | RAD REPORT ---
EXAM DESCRIPTION: [facility] Single View05/26/2019 5:44 am CLINICAL HISTORY: Shortness of breath COMPARISON: May 25, 2019 FINDINGS: Endotracheal tube has been removed Nasogastric tube has its tip in the stomach The lungs appear clear of acute infiltrate. The heart is mildly enlarged. IMPRESSION: No acute abnormalities displayed
[2019-05-26] MEDS: HYDROCODONE/APAP 10/325 TAB PO PRN ×3 (08:52→20:40)
[2019-05-26] MEDS: PANTOPRAZOLE 40 MG INJ IVP SCH ×2 (08:54→20:16)
[2019-05-26] MEDS: Meropenem 1,000 MG in NA CHLORIDE 0.9% 100 ML IV SCH ×2 (08:54→20:16)
[2019-05-26] MEDS: AMLODIPINE 10 MG TAB PO SCH (08:54)
[2019-05-26] MEDS ORDERED: FUROSEMIDE 20 MG/ 2ML VIAL IV ONE (09:20)
[2019-05-26] MEDS: IPRATROPIUM BROM 0.5MG/2.5ML NEB SCH ×2 (10:00→20:20)
--- NOTE | 2019-05-26 12:20 | P.PN ---
Subjective Date of Service: 05/26/19 Primary Care Provider: Dr. Zamudio Chief Complaint: Respiratory failure fungemia Patient seen and examined at bedside with RN. Chart reviewed. Case discussed with general surgery. Patient extubated and now doing well. Overnight no complaints to offer. Is able to tolerate her diet well. Has been advanced to a GI soft diet. No complaints to offer this morning. Is currently working with physical therapy Review of Systems 10-point ROS is otherwise unremarkable Physical Examination - Vital Signs Temperature: 98.2 F Blood Pressure: 149/76 Pulse: 88 Respirations: 15 Pulse Ox (%): 97 - Physical Exam General: Alert, In no apparent distress HEENT: Atraumatic, PERRLA, EOMI Neck: Supple, JVD not distended Respiratory: Normal air movement, Expiratory wheezes Cardiovascular: Regular rate/rhythm, Normal S1 S2 Gastrointestinal: Normal bowel sounds, Other (ASIA drain and ileostomy bag in place), Tenderness Musculoskeletal: Swelling Integumentary: No rashes Neurological: Normal speech, Normal tone, Normal affect Lymphatics: No axilla or inguinal lymphadenopathy - Studies Medications List Reviewed: Yes Assessment And Plan - Current Problems (Diagnosis) (1) Septic shock Current Visit: Yes Status: Resolved Plan: Patient with septic shock most likely secondary to perforation and intra- abdominal abscess formation. Improving today -no IV fluids as patient has been resuscitated successfully -currently on IV meropenem and IV vancomycin, and IV micofungin -blood culture positive for yeast infection pending final result -wound cultures pending at this time from the OR (2) Respiratory distress Current Visit: Yes Status: Acute Plan: Patient with respiratory distress has been intubated during surgery -patient now extubated and doing well overall. On nasal cannula -pulmonology is consulted. Appreciate recommendation (3) Acute kidney injury Current Visit: Yes Status: Acute Plan: JOSE most likely secondary to ATN versus hypovolemia -BUN and creatinine improving today. -patient with generalized edema. Will give Lasix x1 -nephrology is consulted. Recommendation appreciated (4) SBO (small bowel obstruction) Current Visit: Yes Status: Acute Plan: Patient initially with ileus now with possible small bowel obstruction which has resolved post surgically -status post colon resection with abscess removal POD 5. -general surgery consulted. Appreciated recommendations at this time -ASIA drain and ileostomy tube in place (5) Perforation bowel Current Visit: Yes Status: Acute Plan: See SBO (6) Hyponatremia Onset Date: 02/27/18 Current Visit: No Status: Resolved Plan: Hyponatremia most likely secondary to dehydration versus alcohol resolved now -Will continue to monitor patient closely (7) Diabetes Onset Date: 09/12/15 Current Visit: No Status: Chronic Plan: Insulin sliding scale and Accu-Chek+ -blood sugar remains elevated -change sliding scale to moderate Qualifiers: Diabetes mellitus type: type 2 Diabetes mellitus intermediate project manager insulin use: without fdc use Diabetes mellitus complication status: without complication Qualified Code(s): E11.9 - Type 2 diabetes mellitus without complications (8) Essential hypertension Onset Date: 02/27/18 Current Visit: No Status: Chronic Plan: Stable at this time -continue monitor closely - Plan Pending clinical improvement at this time. Will continue to monitor patient closely Discharge Plan: Home Plan to discharge in: Greater than 2 days - Code Status/Comfort Care Code Status Assessed: Yes Critical Care: Yes
--- NOTE | 2019-05-26 13:26 | PN ---
Date of Progress Note: 05/26/2019 Subjective: The patient is awake, alert, tolerating clear liquids. NG residual is minimal. She garcia s not like the clear liquids. She would like some solid foods. Objective: Vital Signs: Stable. She is afebrile. Heart rate was up yesterday but it is done this morning. Abdomen: Benign. Ileostomy is functioning well. Laboratory Data: White count is lowered. The left shift that is improving. BUN and creatinine note d improved markedly. Assessment: Status post exploratory laparotomy, small-bowel resection. Recommendations: Continue IV antibiotics and antifungal medicines. We will advance the diet as john rated. DC the NG tube, physical therapy, incentive spirometry, and DVT prophylaxis and the patient c an be anticoagulated for atrial fibrillation as she is not actively bleeding anymore. /MODL Voice ID: [id number] Report ID: [id number]
[2019-05-26] MEDS: MICAFUNGIN SODIUM 100 MG in NA CHLORIDE 0.9% 100 ML IV SCH (15:11)
[2019-05-26] MEDS: GLUCERNA SHAKE 237 ML CAN PO SCH (20:16)
--- NOTE | 2019-05-26 20:38 | P.PN ---
Subjective Date of Service: 05/26/19 Primary Care Provider: Dr. Zamudio Chief Complaint: Respiratory failure fungemia Subjective: Improving (Doing much better. Extubated yesterday. Alert and co operative. Daughter bed side Ileostomy functions. Started on liquids) Review of Systems General: Weakness, Malaise Respiratory: Shortness of Breath Physical Examination - Vital Signs Temperature: 97.9 F Blood Pressure: 145/72 Pulse: 94 Respirations: 11 Pulse Ox (%): 98 - Physical Exam General: Alert, Cooperative Neck: Supple Respiratory: Clear to auscultation bilaterally, Diminished Cardiovascular: Normal S1 S2, Edema - Studies Medications List Reviewed: Yes Assessment & Plan - Problems (Diagnosis) (1) Fungemia Current Visit: Yes Status: Acute Plan: Pt on Capsofungin (2) Respiratory failure Current Visit: Yes Status: Resolved Plan: Pt extubated yesterday. WBC is declining. Generalized anasarca. Lasix 20 mg IV and repeat if needed. Vitals stable Qualifiers: Chronicity: acute Physician Review Additional Text: JOSE Improving turn to non-oliguric possibly due to Septic GN Off lasix and IVF no need for renal replacement therapy at this time hypoosmolar Hyponatremia resolved Small bowel obstruction with perforated bowel and pelvic abscess S/P small bowel resection Cont Abx Septic shock due to Fungemia Lines removed off pressers on Mucafungin prognosis guarded
[2019-05-27] MEDS ORDERED: VANCOMYCIN 1.25 GM in NA CHLORIDE 0.9% 250 ML IVPB SCH (01:00)
[2019-05-27] MEDS: HYDROCODONE/APAP 10/325 TAB PO PRN (02:44)
[2019-05-27 05:18] LABS: Absolute Lymphocytes (CBC) 0.7 K/uL (0.7-4.9); Basophils % 0.3 % (0-1.3); Hematocrit 33.6 % (36.0-45.0); Lymphocytes % 6.3 % (15.3-44.8); MPV 8.7 fL (7.6-11.3); RBC Red Blood Cell Count 4.04 M/uL (3.86-4.86)
[2019-05-27 05:40] LABS: Bilirubin Total 0.8 mg/dL (0.2-1.0); Magnesium 1.7 mg/dL (1.8-2.4); Phosphorus 2.1 mg/dL (2.5-4.9); Potassium 3.7 mmol/L (3.5-5.1); Protein, Total 5.9 g/dL (6.4-8.2)
[2019-05-27] MEDS: CARVEDILOL 25 MG TAB PO SCH ×2 (05:44→18:12)
[2019-05-27 05:47] VITALS: BMI 28.4
[2019-05-27 07:21] LABS: Blood Morphology Comment NOT SEEN (NOT SEEN); Platelet Estimate ADEQ
[2019-05-27] MEDS: INSULIN -REGULAR HUMAN 50 UNIT/0.5 ML ML SQ SCH ×4 (07:30→21:02)
[2019-05-27] MEDS: IPRATROPIUM BROM 0.5MG/2.5ML NEB SCH ×2 (08:00→20:00)
--- NOTE | 2019-05-27 08:19 | RAD REPORT ---
EXAM DESCRIPTION: RAD - Chest Single View - 05/27/2019 6:21 am CLINICAL HISTORY: Respiratory failure Chest pain. COMPARISON: Chest Single View dated 05/26/2019; Chest Single View dated 05/25/2019; Chest Single View dated 05/23/2019; Chest Single View dated 05/22/2019 FINDINGS: Portable technique limits examination quality. The lungs are grossly clear. The heart is moderately enlarged in size. No displaced fractures.Enteric tube been removed since comparative study.
[2019-05-27] MEDS: AMLODIPINE 10 MG TAB PO SCH (08:59)
[2019-05-27] MEDS: Meropenem 1,000 MG in NA CHLORIDE 0.9% 100 ML IV SCH (08:59)
[2019-05-27] MEDS: PANTOPRAZOLE 40 MG INJ IVP SCH ×2 (08:59→20:59)
[2019-05-27] MEDS: GLUCERNA SHAKE 237 ML CAN PO SCH ×2 (09:00→21:03)
--- NOTE | 2019-05-27 09:14 | PN ---
Date of Progress Note: 05/26/2019 Subjective: Patient was admitted with sepsis, acute kidney injury secondary to prerenal, recovered, resolved. Physical Examination: Vital Signs: When I saw the patient, blood pressure of 149/76, pulse of 88. Chest: Clear to auscultation. Heart: S1, S2. Regular. Abdomen: Soft, nontender. Extremities: Trace edema. Laboratory Data: WBC 12.4, H and H 10.9/32.9. Sodium 141, potassium 3.8, bicarb 24, BUN 36, creatin ine 0.9, calcium 7.9, phosphorus 2.2. Current Medications: The patient is on includes: 1.Meropenem. 2.Micafungin. 3.Vancomycin. 4.Amlodipine. 5.Carvedilol. 6.Furosemide. Assessment And Plan: 1.Acute kidney injury secondary to prerenal, recovered, resolved. 2.Hypertension, controlled, optimal. 3.Hyponatremia, resolved. ROGELIO Voice ID: [id number] Report ID: [id number]
--- NOTE | 2019-05-27 11:14 | PN ---
Subjective: Patient is awake, alert, tolerating diet. Objective: Vital Signs: Stable. Afebrile. Abdomen: Benign. Wound: Clean, dry and intact. White count is 11.1 with slight left shift. Creatinine is normal. Assessment: Status post small bowel resection for perforation and abscess. Recommendations: Continue IV antibiotics. Increase diet as tolerated. Physical therapy. Incentive spirometry. May discontinue the Orellana. Nutritional supplement for patient not having terminal ileum and dietitian was consulted yesterday. Patient is okay to be transferred to the floor. The patient is clinically doing very well. /MODL Voice ID: [id number] Report ID: [id number]
[2019-05-27] MEDS ORDERED: GLUCAGON 1 MG/VIAL IM PRN (12:17)
[2019-05-27] MEDS ORDERED: D50W 25 GM/50 ML SYRINGE IV PRN (12:17)
--- NOTE | 2019-05-27 12:34 | P.PN ---
Subjective Date of Service: 05/27/19 Primary Care Provider: Dr. Zamudio Chief Complaint: Respiratory failure fungemia Subjective: Improving pt with small bowel obstruction, Hx of chronic hyponatremia in ER Na 105 , improved on IVF pt then developed abd distension, required Small bowel resection, pt developed JOSE and now oliguric Today cr down to baseline Na wnl peripheral edema , will monitor and give lasix prn tomorrow if stable can be transferred to regular floor if stable Physical Examination - Vital Signs Temperature: 98.4 F Blood Pressure: 168/74 Pulse: 88 Respirations: 15 Pulse Ox (%): 97 - Physical Exam General: Alert, In no apparent distress, Oriented x3 HEENT: Atraumatic Neck: Supple, JVD not distended, Without JVD or thyroid abnormality Respiratory: Clear to auscultation bilaterally, Normal air movement Cardiovascular: Regular rate/rhythm, Normal S1 S2, No gallops, No rubs, No murmurs, Edema Gastrointestinal: Normal bowel sounds, Other (ileostomy bag ) - Studies Medications List Reviewed: Yes Assessment And Plan Physician Review Additional Text: JOSE resolved possibly due to Septic GN Off lasix and IVF no need for renal replacement therapy at this time Monitor vanco level hypoosmolar Hyponatremia resolved Small bowel obstruction with perforated bowel and pelvic abscess S/P small bowel resection Cont Abx Septic shock due to Fungemia on Mucafungin prognosis guarded
[2019-05-27] MEDS: MICAFUNGIN SODIUM 100 MG in NA CHLORIDE 0.9% 100 ML IV SCH (12:41)
--- NOTE | 2019-05-27 12:49 | P.PN ---
Subjective Date of Service: 05/27/19 Primary Care Provider: Dr. Zamudio Chief Complaint: Respiratory failure fungemia Patient seen and examined at bedside with RN. Chart reviewed. Case discussed with general surgery. Overnight no complaints to offer. Is able to tolerate her diet well. Has been advanced to a GI soft diet. No complaints to offer this morning. Is currently working with physical therapy sitting up in chair Review of Systems 10-point ROS is otherwise unremarkable Physical Examination - Vital Signs Temperature: 98.4 F Blood Pressure: 168/74 Pulse: 88 Respirations: 15 Pulse Ox (%): 97 - Physical Exam General: Alert, In no apparent distress Respiratory: Clear to auscultation bilaterally, Normal air movement Cardiovascular: Regular rate/rhythm, Normal S1 S2 Gastrointestinal: Normal bowel sounds, Other (ASIA drain in place. Serosanguineous fluid. ileostomy bag in place), Tenderness Musculoskeletal: No tenderness Integumentary: No rashes Neurological: Normal speech, Normal tone, Normal affect Lymphatics: No axilla or inguinal lymphadenopathy - Studies Medications List Reviewed: Yes Assessment And Plan - Current Problems (Diagnosis) (1) Septic shock Current Visit: Yes Status: Resolved Plan: Patient with septic shock most likely secondary to perforation and intra- abdominal abscess formation. Resolved now -patient is now hemodynamically stable -blood culture and wound culture positive for yeast. Final results to follow -Dc meropenem and vancomycin at this time. Continue with micofungin for total of 7 days 02/14 -continue monitor patient closely (2) Respiratory distress Current Visit: Yes Status: Acute Plan: Patient with respiratory distress has been intubated during surgery -patient now extubated and doing well overall. On nasal cannula -pulmonology is consulted. Appreciate recommendation (3) Acute kidney injury Current Visit: Yes Status: Acute Plan: JOSE most likely secondary to ATN versus hypovolemia -BUN and creatinine improving today. -generalized edema improving markedly today -nephrology is consulted. Recommendation appreciated (4) SBO (small bowel obstruction) Current Visit: Yes Status: Acute Plan: Patient initially with ileus now with possible small bowel obstruction which has resolved post surgically -status post colon resection with abscess removal POD 6. -general surgery consulted. Appreciated recommendations at this time -ASIA drain and ileostomy tube in place -dietary has been consulted today. Glucerna b.i.d. at this time. (5) Perforation bowel Current Visit: Yes Status: Acute Plan: See SBO (6) Hyponatremia Onset Date: 02/27/18 Current Visit: No Status: Resolved Plan: Hyponatremia most likely secondary to dehydration versus alcohol. resolved now -Will continue to monitor patient closely (7) Diabetes Onset Date: 09/12/15 Current Visit: No Status: Chronic Plan: Insulin sliding scale and Accu-Chek+ -blood sugar this morning was 230. -will continue to monitor currently on moderate sliding scale Qualifiers: Diabetes mellitus type: type 2 Diabetes mellitus intermediate manager insulin use: without intermediate manager use Diabetes mellitus complication status: without complication Qualified Code(s): E11.9 - Type 2 diabetes mellitus without complications (8) Essential hypertension Onset Date: 02/27/18 Current Visit: No Status: Chronic Plan: Stable at this time -continue monitor closely - Plan Pending clinical improvement at this time. Will continue to monitor patient and follow up with wound culture and blood culture results. Will have patient ambulate with physical therapy. Will transfer to the regular floor today. Discharge Plan: Home Plan to discharge in: Greater than 2 days - Code Status/Comfort Care Code Status Assessed: Yes Critical Care: No
[2019-05-27] MEDS: metroNIDAZOLE 500 MG TABLET PO SCH (18:12)
[2019-05-27] MEDS: CIPROFLOXACIN HCL 500 MG TAB PO SCH (20:58)
[2019-05-28] MEDS ORDERED: VANCOMYCIN 1.25 GM in NA CHLORIDE 0.9% 250 ML IVPB SCH (01:00)
[2019-05-28] MEDS: metroNIDAZOLE 500 MG TABLET PO SCH ×4 (01:01→17:29)
[2019-05-28] MEDS: CARVEDILOL 25 MG TAB PO SCH ×2 (05:50→17:30)
[2019-05-28 05:58] LABS: Absolute Lymphocytes (CBC) 0.7 K/uL (0.7-4.9); Basophils % 0.2 % (0-1.3); Hematocrit 35.1 % (36.0-45.0); Lymphocytes % 5.8 % (15.3-44.8); MPV 8.6 fL (7.6-11.3); RBC Red Blood Cell Count 4.21 M/uL (3.86-4.86)
[2019-05-28 06:10] LABS: ALT/SGPT 10 U/L (12-78); AST/SGOT 12 U/L (15-37); Albumin 1.9 g/dL (3.4-5.0); Alkaline Phosphatase 99 U/L (45-117); BUN Blood Urea Nitrogen 14 mg/dL (7-18); Bicarbonate 29 mmol/L (21-32); Bilirubin Total 0.7 mg/dL (0.2-1.0); Glucose Level 146 mg/dL (74-106); Magnesium 1.5 mg/dL (1.8-2.4); Phosphorus 1.5 mg/dL (2.5-4.9); Potassium 3.1 mmol/L (3.5-5.1); Protein, Total 5.7 g/dL (6.4-8.2); Sodium Level 141 mmol/L (136-145)
[2019-05-28] MEDS ORDERED: Magnesium Sulfate 2gm IVPB 2 G/50 ML BAG IV ONE (07:04)
[2019-05-28 07:05] LABS: Blood Morphology Comment NOT SEEN (NOT SEEN); Platelet Estimate ADEQ
[2019-05-28] MEDS ORDERED: POTASSIUM PHOS 20 MM in NA CHLORIDE 0.9% 500 ML IV ONE (07:05)
[2019-05-28] MEDS ORDERED: POTASSIUM 25 MEQ EFFERV TAB PO ONE (07:06)
[2019-05-28] MEDS: IPRATROPIUM BROM 0.5MG/2.5ML NEB SCH ×2 (07:20→20:00)
[2019-05-28] MEDS: INSULIN -REGULAR HUMAN 50 UNIT/0.5 ML ML SQ SCH ×4 (08:49→22:07)
[2019-05-28] MEDS: AMLODIPINE 10 MG TAB PO SCH (09:22)
[2019-05-28] MEDS: GLUCERNA SHAKE 237 ML CAN PO SCH (09:23)
[2019-05-28] MEDS: CIPROFLOXACIN HCL 500 MG TAB PO SCH ×2 (09:23→22:07)
[2019-05-28] MEDS: PANTOPRAZOLE 40 MG INJ IVP SCH ×2 (09:23→22:07)
[2019-05-28] MEDS ORDERED: NA CHLORIDE 0.9% 250 ML ONE (09:27)
--- NOTE | 2019-05-28 11:06 | PN ---
Date of Progress Note: 05/28/2019 Subjective: Patient is awake, alert, tolerating diet, ambulating with physical therapy. Objective: Vital Signs: Stable. Afebrile. Abdomen: Benign. ASIA is putting minimal serosanguineous fluid out. Laboratory Data: Laboratory data reviewed. She does have leukocytosis, but BUN and creatinine are n ormal. Assessment: Status post small bowel resection with abscess and perforation. Recommendations: Increase diet as tolerated. Physical therapy. IV antibiotics. Discharge planning . Patient may benefit from rehab. /MODL Voice ID: [id number] Report ID: [id number]
--- NOTE | 2019-05-28 11:15 | P.PN ---
Subjective Date of Service: 05/28/19 Primary Care Provider: Dr. Zamudio Chief Complaint: Respiratory failure fungemia Patient seen and examined at bedside with RN. Chart reviewed. Case discussed with general surgery. Overnight no complaints to offer. Is able to tolerate her diet well. Has been advanced to a GI soft diet. No complaints to offer this morning. Review of Systems 10-point ROS is otherwise unremarkable Physical Examination - Vital Signs Temperature: 97.2 F Blood Pressure: 170/74 Pulse: 92 Respirations: 16 Pulse Ox (%): 98 - Physical Exam General: Alert, In no apparent distress HEENT: Atraumatic, PERRLA, EOMI Neck: Supple, JVD not distended Respiratory: Clear to auscultation bilaterally, Normal air movement Cardiovascular: Regular rate/rhythm, Normal S1 S2 Gastrointestinal: Normal bowel sounds, No tenderness Musculoskeletal: No tenderness Integumentary: No rashes Neurological: Normal speech, Normal tone, Normal affect Lymphatics: No axilla or inguinal lymphadenopathy - Studies Medications List Reviewed: Yes Assessment And Plan - Current Problems (Diagnosis) (1) Septic shock Current Visit: Yes Status: Resolved Plan: Patient with septic shock most likely secondary to perforation and intra- abdominal abscess formation. Resolved now -patient is now hemodynamically stable -blood culture and wound culture positive for yeast. Final results to follow -Continue with micofungin for total of 7 days 02/14 -continue monitor patient closely (2) Respiratory distress Current Visit: Yes Status: Acute Plan: Patient with respiratory distress has been intubated during surgery -patient now extubated and doing well overall. On nasal cannula -pulmonology is consulted. Appreciate recommendation (3) Acute kidney injury Current Visit: Yes Status: Acute Plan: JOSE most likely secondary to ATN versus hypovolemia -BUN and creatinine improving today. -generalized edema improving markedly today -nephrology is consulted. Recommendation appreciated (4) SBO (small bowel obstruction) Current Visit: Yes Status: Acute Plan: Patient initially with ileus now with possible small bowel obstruction which has resolved post surgically -status post colon resection with abscess removal POD 7. -general surgery consulted. Appreciated recommendations at this time -ASIA drain and ileostomy tube in place -dietary has been consulted today. Glucerna b.i.d. at this time. (5) Perforation bowel Current Visit: Yes Status: Acute Plan: See SBO (6) Hyponatremia Onset Date: 02/27/18 Current Visit: No Status: Resolved Plan: Hyponatremia most likely secondary to dehydration versus alcohol. resolved now -Will continue to monitor patient closely (7) Diabetes Onset Date: 09/12/15 Current Visit: No Status: Chronic Plan: Insulin sliding scale and Accu-Chek+ -blood sugar this morning was 230. -will continue to monitor currently on moderate sliding scale Qualifiers: Diabetes mellitus type: type 2 Diabetes mellitus senior care insulin use: without senior care use Diabetes mellitus complication status: without complication Qualified Code(s): E11.9 - Type 2 diabetes mellitus without complications (8) Essential hypertension Onset Date: 02/27/18 Current Visit: No Status: Chronic Plan: Stable at this time -continue monitor closely - Plan Pending clinical improvement at this time. Will continue to monitor patient and follow up with wound culture and blood culture results. Will have patient ambulate with physical therapy. Will transfer to the regular floor today. Discharge Plan: Home Plan to discharge in: Greater than 2 days - Code Status/Comfort Care Code Status Assessed: Yes Critical Care: No
[2019-05-28] MEDS: MICAFUNGIN SODIUM 100 MG in NA CHLORIDE 0.9% 100 ML IV SCH (12:27)
--- NOTE | 2019-05-28 19:48 | P.PN ---
Subjective Date of Service: 05/28/19 Primary Care Provider: Dr. Zamudio Chief Complaint: Respiratory failure fungemia Subjective: Improving pt with small bowel obstruction, Hx of chronic hyponatremia in ER Na 105 , improved on IVF pt then developed abd distension, required Small bowel resection, pt developed JOSE and now oliguric Today cr down to baseline MG , K and Phos replaced BP high , will consider to add Hydralazine if BP cont to be elevated edema improved , will hold on lasix to complete 7days of Micafungin course Physical Examination - Vital Signs Temperature: 96.9 F Blood Pressure: 173/79 Pulse: 87 Respirations: 16 Pulse Ox (%): 99 - Physical Exam General: In no apparent distress, Oriented x3 HEENT: Atraumatic Neck: Supple, Without JVD or thyroid abnormality Respiratory: Clear to auscultation bilaterally, Normal air movement Cardiovascular: Regular rate/rhythm, Normal S1 S2, No gallops, No rubs, No murmurs, Edema Gastrointestinal: Soft and benign, Other (ileostomy bag ) Integumentary: No rashes - Studies Medications List Reviewed: Yes Assessment And Plan Physician Review Additional Text: JOSE resolved possibly due to Septic GN hypoosmolar Hyponatremia resolved Small bowel obstruction with perforated bowel and pelvic abscess S/P small bowel resection Cont Abx Septic shock due to Fungemia and perforated viscous on Mucafungin , cipro and flagyl HTN Bp elevated now on Coreg and amlodipine will consider to add hydralazine if Bp cont to be elevated
[2019-05-28] MEDS: ENSURE HIGH PROTEIN 237 ML CAN PO SCH (22:08)
[2019-05-29] MEDS: metroNIDAZOLE 500 MG TABLET PO SCH ×4 (00:26→17:11)
[2019-05-29] MEDS: CARVEDILOL 25 MG TAB PO SCH ×2 (06:50→17:11)
[2019-05-29] MEDS: IPRATROPIUM BROM 0.5MG/2.5ML NEB SCH ×2 (07:42→20:00)
[2019-05-29] MEDS: AMLODIPINE 10 MG TAB PO SCH (09:08)
[2019-05-29] MEDS: PANTOPRAZOLE 40 MG INJ IVP SCH ×2 (09:08→21:43)
[2019-05-29] MEDS: INSULIN -REGULAR HUMAN 50 UNIT/0.5 ML ML SQ SCH ×4 (09:09→21:00)
[2019-05-29] MEDS: CIPROFLOXACIN HCL 500 MG TAB PO SCH ×2 (09:09→21:43)
[2019-05-29] MEDS: ENSURE HIGH PROTEIN 237 ML CAN PO SCH ×2 (09:10→21:44)
[2019-05-29] MEDS: CYANOCOBALAMIN 1,000 MCG TAB PO SCH (10:13)
--- NOTE | 2019-05-29 10:18 | PN ---
Date of Progress Note: 05/29/2019 Subjective: Patient is awake, alert, no complaint. She is tolerating diet. Objective: Vital Signs: Stable. Blood pressure is a little high at 160/77. She is afebrile. Her ASIA is putting out very minimal drainage 5 and 5 cc each. Ileostomy is working well and urine output is adequate. Abdomen: Benign. Dressing is clean, dry, and intact. Abdomen is soft. Assessment: Status post exploratory laparotomy, small bowel resection for perforation because of isc hemia secondary to obstruction and abscess formation. Recommendations: Rehab consult has been placed. Patient will get supplemental B12. Continue antifu ngal, antibiotics, incentive spirometry, and physical therapy as ordered. Patient is clinically stab le and doing well and ileostomy teaching is begun as well. /MODL Voice ID: [id number] Report ID: [id number]
--- NOTE | 2019-05-29 12:24 | P.PN ---
Subjective Date of Service: 05/29/19 Primary Care Provider: Dr. Zamudio Chief Complaint: Respiratory failure fungemia Patient seen and examined at bedside with RN. Chart reviewed. Case discussed with general surgery. Overnight no complaints to offer. Is able to tolerate her diet well. Has been advanced to a GI soft diet. No complaints to offer this morning. Review of Systems 10-point ROS is otherwise unremarkable Physical Examination - Vital Signs Temperature: 97.8 F Blood Pressure: 165/77 Pulse: 88 Respirations: 17 Pulse Ox (%): 98 - Physical Exam General: Alert, In no apparent distress Respiratory: Clear to auscultation bilaterally, Normal air movement Cardiovascular: Regular rate/rhythm, Normal S1 S2 Gastrointestinal: Normal bowel sounds, No tenderness Musculoskeletal: Tenderness Integumentary: No rashes Neurological: Normal speech, Normal tone, Normal affect Lymphatics: No axilla or inguinal lymphadenopathy - Studies Medications List Reviewed: Yes Assessment And Plan - Current Problems (Diagnosis) (1) Septic shock Current Visit: Yes Status: Resolved Plan: Patient with septic shock most likely secondary to perforation and intra- abdominal abscess formation. Resolved now -patient is now hemodynamically stable -blood culture and wound culture positive for yeast. Final results to follow -Continue with micofungin for total of 7 days 04/16 -continue monitor patient closely (2) Respiratory distress Current Visit: Yes Status: Acute Plan: Patient with respiratory distress has been intubated during surgery -patient now extubated and doing well overall. On nasal cannula -pulmonology is consulted. Appreciate recommendation (3) Acute kidney injury Current Visit: Yes Status: Acute Plan: JOSE most likely secondary to ATN versus hypovolemia -BUN and creatinine improving today. -generalized edema improving markedly today -nephrology is consulted. Recommendation appreciated (4) SBO (small bowel obstruction) Current Visit: Yes Status: Acute Plan: Patient initially with ileus now with possible small bowel obstruction which has resolved post surgically -status post colon resection with abscess removal POD 8. -general surgery consulted. Appreciated recommendations at this time -ASIA drain and ileostomy tube in place -dietary has been consulted today. Glucerna b.i.d. at this time. (5) Perforation bowel Current Visit: Yes Status: Acute Plan: See SBO (6) Hyponatremia Onset Date: 02/27/18 Current Visit: No Status: Resolved Plan: Hyponatremia most likely secondary to dehydration versus alcohol. resolved now -Will continue to monitor patient closely (7) Diabetes Onset Date: 09/12/15 Current Visit: No Status: Chronic Plan: Insulin sliding scale and Accu-Chek+ -blood sugar this morning was 230. 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 Will continue to monitor patient and follow up with wound culture and blood culture results for final recognition of the [place]. Will have patient ambulate with physical therapy. Rehab consult has been placed Discharge Plan: Home Plan to discharge in: Greater than 2 days - Code Status/Comfort Care Code Status Assessed: Yes Critical Care: No
[2019-05-29] MEDS ORDERED: POTASSIUM 25 MEQ EFFERV TAB PO ONE (13:05)
[2019-05-29] MEDS: MICAFUNGIN SODIUM 100 MG in NA CHLORIDE 0.9% 100 ML IV SCH (13:26)
--- NOTE | 2019-05-29 16:48 | PN ---
Date of Progress Note: 05/29/2019 Subjective: Patient was admitted with acute kidney injury; hyponatremia, depletional; hypokalemia; h ypophosphatemia. The patient still depleted on potassium. Physical Examination: Vital Signs: The patient blood pressure 165/77, pulse of 88. Chest: Clear to auscultation. Heart: S1, S2. Regular. Abdomen: Soft, nontender. Extremities: No edema. Laboratory Data: H and H 11.6/35.1. Sodium of 141, potassium 3.1, bicarb 29, BUN 14, creatinine 0.6 , calcium 7.6, phosphorus 1.5, magnesium 1.5. Current Medications: The patient on is include: Micafungin, Cipro, metronidazole, breathing treatme nt, Norvasc 10, carvedilol, lorazepam. Assessment And Plan: 1.Acute kidney injury secondary to prerenal, recovered, resolved. 2.Hypokalemia, we will supplement. We will start the patient on spironolactone. 3.Hypophosphatemia, hypomagnesemia. We will supplement. 4.Deconditioning. Continue PT/OT. 5.Hyponatremia, resolved. 6.Hypertension, not controlled. Continue current medication. I will start the patient on spironola ctone and we will follow up the patient. ROGELIO Voice ID: [id number] Report ID: [id number]
--- NOTE | 2019-05-30 05:44 | P.PN ---
Date of Service: 05/30/19 Patient had purulent appearing tissue excreted when she was urinating. This was foul smelling. This was collected and sent to pathology. Fistula formation would be 1 of my concerns. This could also have been passed from the vaginal area although the CLOTH DESIZING RANGE TENDER who was with the patient states that it came from her urine. However, no abdominal pain noted. May need to consider CT of the abdomen and pelvis. I would discuss with surgery as well as additional consultants prior to CT scan being ordered as patient is not having significant amount of pain. Specimen was sent to pathology for the time being. If any additional testing is needed to be were on the specimen please notify pathology. A urine analysis with microscopy was unable to be done as it may damage the machine per bolt labeler. She denies any vaginal discharge. If recurrent then a formal pelvic exam may be needed as well.
[2019-05-30] MEDS: metroNIDAZOLE 500 MG TABLET PO SCH ×4 (06:00→17:36)
[2019-05-30 06:53] LABS: Albumin 2.1 g/dL (3.4-5.0); Magnesium 1.8 mg/dL (1.8-2.4); Phosphorus 2.4 mg/dL (2.5-4.9); Potassium 3.6 mmol/L (3.5-5.1)
[2019-05-30] MEDS: CARVEDILOL 25 MG TAB PO SCH ×2 (06:53→17:33)
[2019-05-30] MEDS: IPRATROPIUM BROM 0.5MG/2.5ML NEB SCH ×2 (07:50→20:00)
[2019-05-30] MEDS: INSULIN -REGULAR HUMAN 50 UNIT/0.5 ML ML SQ SCH ×4 (08:50→21:00)
[2019-05-30] MEDS: CYANOCOBALAMIN 1,000 MCG TAB PO SCH (08:50)
[2019-05-30] MEDS: AMLODIPINE 10 MG TAB PO SCH (08:51)
[2019-05-30] MEDS: SPIRONOLACTONE 25 MG TABLET PO SCH (08:51)
[2019-05-30] MEDS: CIPROFLOXACIN HCL 500 MG TAB PO SCH ×2 (08:51→21:52)
[2019-05-30] MEDS: PANTOPRAZOLE 40 MG INJ IVP SCH ×2 (08:52→21:52)
[2019-05-30] MEDS: ENSURE HIGH PROTEIN 237 ML CAN PO SCH ×2 (08:57→21:00)
[2019-05-30] MEDS ORDERED: SPIRONOLACTONE 25 MG TABLET PO SCH (09:00)
[2019-05-30] MEDS ORDERED: POTASSIUM 25 MEQ EFFERV TAB PO ONE (10:01)
[2019-05-30] MEDS ORDERED: MAGNESIUM SULFATE 1 gm IVPB 1 GM/100 ML BAG IV ONE (10:36)
[2019-05-30] MEDS ORDERED: NA CHLORIDE 0.9% 250 ML ONE (11:25)
[2019-05-30] MEDS: MICAFUNGIN SODIUM 100 MG in NA CHLORIDE 0.9% 100 ML IV SCH (12:04)
--- NOTE | 2019-05-30 13:17 | P.PN ---
Subjective Date of Service: 05/30/19 Primary Care Provider: Dr. Zamudio Chief Complaint: Respiratory failure fungemia Patient seen and examined at bedside with RN. Chart reviewed. Case discussed with general surgery. For night had purulent discharge from the urinary area along with tissue. Sample was sent to pathology Is able to tolerate her diet well. Has been advanced to a GI soft diet. No complaints to offer this morning. Review of Systems 10-point ROS is otherwise unremarkable Physical Examination - Vital Signs Temperature: 97.3 F Blood Pressure: 168/97 Pulse: 91 Respirations: 18 Pulse Ox (%): 97 - Physical Exam General: Alert, In no apparent distress HEENT: Atraumatic, PERRLA, EOMI Neck: Supple, JVD not distended Respiratory: Clear to auscultation bilaterally, Normal air movement Cardiovascular: Regular rate/rhythm, Normal S1 S2 Gastrointestinal: Normal bowel sounds, No tenderness Musculoskeletal: Tenderness Integumentary: No rashes Neurological: Normal speech, Normal tone, Normal affect Lymphatics: No axilla or inguinal lymphadenopathy - Studies Medications List Reviewed: Yes Assessment And Plan - Current Problems (Diagnosis) (1) Septic shock Current Visit: Yes Status: Resolved Plan: Patient with septic shock most likely secondary to perforation and intra- abdominal abscess formation. Resolved now -patient is now hemodynamically stable -blood culture and wound culture positive for yeast. Final results to follow -Continue with micofungin for total of 7 days 05/16 -continue monitor patient closely (2) Respiratory distress Current Visit: Yes Status: Acute Plan: Patient with respiratory distress has been intubated during surgery -patient now extubated and doing well overall. On nasal cannula -pulmonology is consulted. Appreciate recommendation (3) Acute kidney injury Current Visit: Yes Status: Acute Plan: JOSE most likely secondary to ATN versus hypovolemia -BUN and creatinine improving today. -generalized edema improving markedly today -nephrology is consulted. Recommendation appreciated (4) SBO (small bowel obstruction) Current Visit: Yes Status: Acute Plan: Patient initially with ileus now with possible small bowel obstruction which has resolved post surgically -status post colon resection with abscess removal POD 9. -general surgery consulted. Appreciated recommendations at this time -ASIA drain and ileostomy tube in place -dietary has been consulted today. Glucerna b.i.d. at this time. (5) Perforation bowel Current Visit: Yes Status: Acute Plan: See SBO (6) Hyponatremia Onset Date: 02/27/18 Current Visit: No Status: Resolved Plan: Hyponatremia most likely secondary to dehydration versus alcohol. resolved now -Will continue to monitor patient closely (7) Diabetes Onset Date: 09/12/15 Current Visit: No Status: Chronic Plan: Insulin sliding scale and Accu-Chek+ -blood sugar this morning was 230. 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 Will continue to monitor patient and follow up with wound culture and blood culture results for final recognition of the yeast. Will have patient ambulate with physical therapy. Rehab consult has been placed Physician Review Additional Text: JOSE resolved possibly due to Septic GN hypoosmolar Hyponatremia resolved Small bowel obstruction with perforated bowel and pelvic abscess S/P small bowel resection Cont Abx Septic shock due to Fungemia and perforated viscous on Mucafungin , cipro and flagyl HTN Bp elevated now on Coreg and amlodipine will consider to add hydralazine if Bp cont to be elevated
--- NOTE | 2019-05-30 13:18 | RAD REPORT ---
EXAM DESCRIPTION: CT - Abdomen Pelvis Wo Contrast - 05/30/2019 12:52 pm CLINICAL HISTORY: Abdominal pain. post operative follow up/ rule out fistula COMPARISON: <Comparisons> TECHNIQUE: CT imaging of the abdomen and pelvis was performed without contrast. Solid organ, bowel a nd vascular assessment is limited due to lack of IV and oral contrast. All CT scans are performed using dose optimization technique as appropriate and may include automated exposure control or mA/KV adjustment according to patient size. FINDINGS: Trace right and a small left pleural effusion is seen with atelectasis in the left lung ba se.Postsurgical changes about the stomach noted. No gross liver lesion. Small amount of free fluid along the hepatic edge is seen.The spleen, adrenal glands and pancreas are within limits. No renal stone or hydronephrosis. Small amount of fluid is see n in the left pericolic gutter. Right lower quadrant ostomy is noted. Large bore surgical drains in place in the inferior pelvis. No significant large scale fluid collections are present in the abdomen or pelvis. Sigmoid diverticulosi s is present. No finding to suggest intraabdominal abscess. No significant free air. Air is present in the urinary bladder suggesting recent instrumentation or infection. IMPRESSION: Postsurgical changes are noted with only a small volume of free fluid around the liver e dge and along the left pericolic gutter. No abscess is present. Air is present within the urinary bladder which may indicate recent instrumentation or infection. Colonic diverticulosis seen. A limited non-contrast examination was performed as detailed.
[2019-05-30 14:00] LABS: BUN Blood Urea Nitrogen 20 mg/dL (7-18); Bicarbonate 30 mmol/L (21-32); CKMB Creatine Kinase MB < 1.0 ng/mL (0.3-3.6); Creatine Phosphokinase 26 U/L (26-192); Glucose Level 214 mg/dL (74-106); Potassium 3.8 mmol/L (3.5-5.1); Sodium Level 136 mmol/L (136-145)
[2019-05-30 14:32] LABS: Urine Appearance CLOUDY; Urine Blood NEGATIVE (NEG); Urine Color ORANGE; Urine Glucose NEGATIVE (NEG); Urine Protein 1+ (NEG); Urine Specific Gravity 1.025 (1.005-1.030); Urine Urobilinogen 0.2 mg/dL (0.2-1.0); Urine pH 5.5 (5.0-7.0)
[2019-05-30 14:38] LABS: Urine Bilirubin 1+ (NEG)
--- NOTE | 2019-05-30 14:48 | PN ---
Date of Progress Note: 05/30/2019 Subjective: Patient was admitted with significant depletional hyponatremia and acute kidney injury. It was depletional, prerenal. Patient recover significantly. Physical Examination: Vital Signs: When I saw the patient, blood pressure 168/97, pulse of 91. Chest: Clear to auscultation heart S1, S2. Systolic murmur. Abdomen: Soft nontender extremities plus edema. Laboratory Data: Sodium 137, potassium 3.6 bicarb 31, BUN 18, creatinine 0.7, calcium 8.1, phos 2.4, magnesium 1.8. Hemoglobin and hematocrit of 11.6 and 35.1. Current Medications: The patient on its include Ramesh fungating ciprofloxacin, metronidazole, amlo dipine 10 carvedilol 20 12:5, spironolactone 25, was started yesterday ensure Zofran. Assessment And Plan: 1.Acute kidney injury secondary to prerenal, recovered, resolved. 2.Hyponatremia secondary to depletion, continue supplement. The patient was just started on spirono lactone yesterday. We will follow up. 3.Hypertension, not controlled. Yesterday, we add spironolactone. I am going to go ahead and add a low dose of hydralazine. We will keep avoiding NETTIE inhibitor. We will follow up. KITTY/FAUSTO Voice ID: [id number] Report ID: [id number]
[2019-05-30 14:58] LABS: Urine Amorphous Sediment 2+ /HPF (NONE SEEN); Urine Bacteria <20 /HPF (<20); Urine Culture Reflex Order NOT NEEDED; Urine RBC <5 /HPF (NONE SEEN)
[2019-05-30 16:58] LABS: Urine Appearance CLEAR; Urine Bilirubin NEGATIVE (NEG); Urine Blood NEGATIVE (NEG); Urine Color DK YELLOW; Urine Glucose NEGATIVE (NEG); Urine Protein 1+ (NEG); Urine Specific Gravity 1.015 (1.005-1.030); Urine Urobilinogen 0.2 mg/dL (0.2-1.0)
[2019-05-30 17:00] LABS: Urine Bacteria <20 /HPF (<20); Urine Culture Reflex Order NOT NEEDED; Urine RBC NONE SEEN /HPF (NONE SEEN)
[2019-05-30] MEDS: HYDRALAZINE HCL 10 MG TABLET PO SCH (21:52)
[2019-05-31] MEDS: metroNIDAZOLE 500 MG TABLET PO SCH ×4 (05:41→17:39)
[2019-05-31] MEDS: CARVEDILOL 25 MG TAB PO SCH ×2 (05:41→17:39)
[2019-05-31 06:25] LABS: Albumin 2.1 g/dL (3.4-5.0); Phosphorus 2.4 mg/dL (2.5-4.9); Potassium 3.9 mmol/L (3.5-5.1)
[2019-05-31] MEDS: INSULIN -REGULAR HUMAN 50 UNIT/0.5 ML ML SQ SCH ×4 (08:03→21:00)
[2019-05-31] MEDS: PANTOPRAZOLE 40 MG INJ IVP SCH ×2 (08:05→22:28)
[2019-05-31] MEDS: CIPROFLOXACIN HCL 500 MG TAB PO SCH ×2 (08:05→22:27)
[2019-05-31] MEDS: CYANOCOBALAMIN 1,000 MCG TAB PO SCH (08:06)
[2019-05-31] MEDS: SPIRONOLACTONE 25 MG TABLET PO SCH (08:09)
[2019-05-31] MEDS: HYDRALAZINE HCL 10 MG TABLET PO SCH ×2 (08:09→22:28)
[2019-05-31] MEDS: ENSURE HIGH PROTEIN 237 ML CAN PO SCH ×2 (08:10→21:00)
[2019-05-31] MEDS: AMLODIPINE 10 MG TAB PO SCH (08:10)
[2019-05-31] MEDS: IPRATROPIUM BROM 0.5MG/2.5ML NEB SCH ×2 (09:00→20:30)
--- NOTE | 2019-05-31 11:53 | RAD REPORT ---
EXAM DESCRIPTION: US - Transvaginal Study Probe - 05/31/2019 10:48 am CLINICAL HISTORY: Pelvic pain COMPARISON: May 30, 2019 cat scan FINDINGS: Hysterectomy Neither ovary is definitely seen. Right and left adnexa unremarkable. Minimal free fluid. A percutaneous drain is present within the pelvis IMPRESSION: No significant abnormality is displayed
--- NOTE | 2019-05-31 15:27 | PN ---
Date of Progress Note: 05/31/2019 Subjective: Patient over the last couple of nights has had some fibrinous exudate exiting from her v agina, not sure whether it is from the urethra or vagina itself. She had a CAT scan yesterday, which was unremarkable. She had a transvaginal ultrasound today, which really did not show anything. Pat hology specimens grossly seen by the pathologist reveal it to be fibrinous exudate, but the followup path is pending. Patient is tolerating diet. Ileostomy is working well. There is no fluid collecti on in the pelvis. ASIA drain is putting out very minimal. Objective: Vital Signs: Stable. Blood pressure is little high, however. She is afebrile. Abdomen: Benign. Assessment: Status post exploratory laparotomy, small bowel resection, and drainage of intra-abdomin al and pelvic abscess. Recommendations: We will discontinue one of the Luis-Courtney drains today. Discontinue every other staple. Continue antibiotics and antifungal medications. Encourage ambulation. Await rehab evalua tion. Continue physical therapy and incentive spirometry and DVT prophylaxis. Patient is clinically stable. /MODL Voice ID: [id number] Report ID: [id number]
--- NOTE | 2019-05-31 18:28 | P.PN ---
Subjective Date of Service: 05/31/19 Primary Care Provider: Dr. Zamudio Chief Complaint: Respiratory failure fungemia Patient seen and examined at bedside with RN. Chart reviewed. Case discussed with general surgery. Is able to tolerate her diet well. Has been advanced to a GI soft diet. No complaints to offer this morning. Review of Systems 10-point ROS is otherwise unremarkable Physical Examination - Vital Signs Temperature: 98.2 F Blood Pressure: 144/78 Pulse: 94 Respirations: 18 Pulse Ox (%): 99 - Physical Exam General: Alert, In no apparent distress HEENT: Atraumatic, PERRLA, EOMI Neck: Supple, JVD not distended Respiratory: Clear to auscultation bilaterally, Normal air movement Cardiovascular: Regular rate/rhythm, Normal S1 S2 Gastrointestinal: Normal bowel sounds, No tenderness Musculoskeletal: No tenderness Integumentary: No rashes Neurological: Normal speech, Normal tone, Normal affect Lymphatics: No axilla or inguinal lymphadenopathy - Studies Medications List Reviewed: Yes Assessment And Plan - Current Problems (Diagnosis) (1) Septic shock Current Visit: Yes Status: Resolved Plan: Patient with septic shock most likely secondary to perforation and intra- abdominal abscess formation. Resolved now -patient is now hemodynamically stable -blood culture and wound culture positive for yeast. Final results to follow -Switched to PO Diflucan now -continue monitor patient closely (2) Respiratory distress Current Visit: Yes Status: Acute Plan: Patient with respiratory distress has been intubated during surgery -patient now extubated and doing well overall. On nasal cannula -pulmonology is consulted. Appreciate recommendation (3) Acute kidney injury Current Visit: Yes Status: Acute Plan: JOSE most likely secondary to ATN versus hypovolemia -BUN and creatinine improving today. -generalized edema improving markedly today -nephrology is consulted. Recommendation appreciated (4) SBO (small bowel obstruction) Current Visit: Yes Status: Acute Plan: Patient initially with ileus now with possible small bowel obstruction which has resolved post surgically -status post colon resection with abscess removal POD 10. -general surgery consulted. Appreciated recommendations at this time -ASIA drain and ileostomy tube in place -dietary has been consulted today. Glucerna b.i.d. at this time. (5) Perforation bowel Current Visit: Yes Status: Acute Plan: See SBO (6) Hyponatremia Onset Date: 02/27/18 Current Visit: No Status: Resolved Plan: Hyponatremia most likely secondary to dehydration versus alcohol. resolved now -Will continue to monitor patient closely (7) Diabetes Onset Date: 09/12/15 Current Visit: No Status: Chronic Plan: Insulin sliding scale and Accu-Chek+ -blood sugar this morning was 230. -will continue to monitor currently on moderate sliding scale Qualifiers: Diabetes mellitus type: type 2 Diabetes mellitus correction insulin use: without organ installer use Diabetes mellitus complication status: without complication Qualified Code(s): E11.9 - Type 2 diabetes mellitus without complications (8) Essential hypertension Onset Date: 02/27/18 Current Visit: No Status: Chronic Plan: Stable at this time -continue monitor closely - Plan Pending clinical improvement at this time. Will continue to monitor patient and follow up with wound culture and blood culture results for final recognition of the yeast. Will have patient ambulate with physical therapy. Has been approved for rehab however has not received insurance approval yet. Will await at this time Discharge Plan: Other Plan to discharge in: Greater than 2 days - Code Status/Comfort Care Code Status Assessed: Yes Critical Care: No
--- NOTE | 2019-05-31 20:51 | PN ---
Date of Progress Note: 05/31/2019 Chief Complaint: Acute on chronic kidney injury. Patient is recovering from septic shock. Patient has nonoliguric urine output. History Of Present Illness: Patient was primarily admitted with depletional hyponatremia and receive d IV fluids. Sodium level has improved. Patient was admitted because of generalized weakness, was f ound to have hyponatremia and bowel obstruction. Subsequently, she developed acute kidney injury. T he patient currently is in recovery stage from acute kidney injury. Creatinine level has improved an d electrolyte panel was done today and showed stable electrolytes. Review of Systems: Denies fever and chills. Physical Examination: Lung: Clear to auscultation bilaterally. Heart: S1-S2. ABDOMEN: Soft, benign. Extremities: Slight edema. Laboratory Data: Sodium 137, potassium 3.6, BUN 18, creatinine 0.7, calcium 8.1, magnesium 1.8. Impression And Plan: 1.Acute kidney injury secondary to prerenal azotemia with nonoliguric ATN, resolved. Avoid nephroto xic medication. 2.Hyponatremia, resolved. Patient is currently spironolactone for diuretic effect and potassium-spa ring effect. Plan is monitor electrolytes. 3.Hypertension, controlled. Patient is on hydralazine. Plan is to avoid NETTIE inhibitor at this point and avoid nonsteroidal anti-inflammatory medication. EB/MODL Voice ID: [id number] Report ID: [id number]
[2019-06-01] MEDS: metroNIDAZOLE 500 MG TABLET PO SCH ×3 (01:17→12:08)
[2019-06-01] MEDS: CARVEDILOL 25 MG TAB PO SCH (05:30)
[2019-06-01 06:20] LABS: Absolute Lymphocytes (CBC) 0.9 K/uL (0.7-4.9); Basophils % 0.7 % (0-1.3); Hematocrit 35.4 % (36.0-45.0); Lymphocytes % 5.8 % (15.3-44.8); MPV 8.4 fL (7.6-11.3); RBC Red Blood Cell Count 4.21 M/uL (3.86-4.86)
[2019-06-01 06:50] LABS: Albumin 2.2 g/dL (3.4-5.0); Magnesium 1.7 mg/dL (1.8-2.4); Phosphorus 2.3 mg/dL (2.5-4.9); Potassium 4.2 mmol/L (3.5-5.1)
[2019-06-01] MEDS: IPRATROPIUM BROM 0.5MG/2.5ML NEB SCH (08:00)
[2019-06-01 08:27] LABS: Blood Morphology Comment NOT SEEN (NOT SEEN); Platelet Estimate INCR
[2019-06-01] MEDS: INSULIN -REGULAR HUMAN 50 UNIT/0.5 ML ML SQ SCH ×2 (09:10→12:08)
[2019-06-01] MEDS: PANTOPRAZOLE 40 MG INJ IVP SCH (09:11)
[2019-06-01] MEDS: SPIRONOLACTONE 25 MG TABLET PO SCH (09:11)
[2019-06-01] MEDS: CIPROFLOXACIN HCL 500 MG TAB PO SCH (09:12)
[2019-06-01] MEDS: AMLODIPINE 10 MG TAB PO SCH (09:12)
[2019-06-01] MEDS: HYDRALAZINE HCL 10 MG TABLET PO SCH (09:12)
[2019-06-01] MEDS: CYANOCOBALAMIN 1,000 MCG TAB PO SCH (09:12)
[2019-06-01] MEDS: ENSURE HIGH PROTEIN 237 ML CAN PO SCH (09:13)
[2019-06-01 10:41] VITALS: O2SAT 98
--- NOTE | 2019-06-01 11:56 | PN ---
Date of Progress Note: 06/01/2019 Subjective: Patient is awake and alert. No complaints. Vital signs stable, afebrile. White count is elevated with a left shift. Platelets are slightly elevated. Please note, CT of the abdomen and pelvis as well as the ultrasound done in the last couple of days does not show any evidence of any ab scess just some atelectasis present, however. Her ASIA is putting out 10 cc. She is tolerating diet a nd ambulating. Pain controlled with p.o. pain medication. She has been accepted to rehab. Abdomen is benign. Urine output is more than adequate. Assessment: Status post small bowel resection, drainage of pelvic abscess. Recommendations: Continue antibiotics and antifungal medication as ordered. Transfer to rehab once paperwork is done. We will follow the patient on rehab. We will discontinue the other ASIA drain in a day or two. Patient is clinically stable. Slowly improving. /MODL Voice ID: [id number] Report ID: [id number]
[2019-06-01 12:57] VITALS: BP 140/82; TEMP 98.3
[2019-06-01] MEDS ORDERED: Magnesium Sulfate 2gm IVPB 2 G/50 ML BAG IV ONE ×2 (16:00→16:10)
--- NOTE | 2019-06-01 16:09 | P.DS ---
Admission Date: 05/14/19 Discharge Date: 06/01/19 Primary Care Provider: Dr. 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 Most of the information came from the who was present as the patient has difficulty with hearing loss. reports that the patient has been having nausea, vomiting and diffuse abdominal pain over the last 3 days. She has not improved. Difficulty with intake has been noted. No fever noted. Patient reports some diarrhea watery this morning. No sick contacts noted. Patient with underlying diabetes, hypertension. Patient had been falling likely from dehydration. In the ER patient evaluated. Vital signs stable. CT head showed no acute findings. CT abdomen revealed dilated small loops of bowel to the mid ileum region likely related to mechanical small bowel obstruction. Due to the patient 's findings the patient was admitted for further evaluation and treatment. When I evaluated in the emergency room, pain was under control. Some nausea noted. reports prior history of cholecystectomy, hysterectomy and a benign tumor removed from the stomach. Hospital Course: Overall during the hospital stay patient remained stable Patient was initially admitted to the hospital for hyponatremia was found to have septic shock perforated colon with abscess formation intra-abdominally. For patient's hyponatremia patient remained on IV fluids here in the hospital initially was admitted to the ICU. Hyponatremia did improve while here in the hospital after she was given IV fluids however improvement was slow. Patient's hyponatremia is most likely secondary to alcohol consumption and dehydration. For patient's septic Shock which was most likely secondary to perforated colon with abscess formation general surgery was consulted. Initially the treatment plan was for small bowel obstruction however once patient did not have any improvement in her symptoms patient was taken to the OR for ex lap. Patient was found to have perforated colon with abscess formation which was trained and patient had a ileostomy bag along with colon resection done by general surgery. Patient then remained in the ICU and her diet was advanced slowly when her ileostomy bag was functional and her ASIA drain had low output. Patient remained here in the hospital hemodynamically stable post procedure. Patient initially was started on IV antibiotics and was continued on IV antibiotics. Initially she was started on IV meropenem which was switched to IV Cipro and Flagyl after surgical resection. Patient had blood cultures and the wound cultures done here in the hospital which were positive for yeast infection and thus patient was treated with Micofungin for total of 7 days and was switched over to Diflucan after that. Patient was asked to continue Diflucan for a total of 1 month and primary care doctor will be following up with her blood culture and urine culture results. While here in the hospital patient was also found to have sediments in her urine most likely secondary to dehydration. Patient had a bladder irrigation done here in the hospital which cleared her urine and thus Orellana catheter was eventually discontinued. Patient will also be on antibiotics Cipro and Flagyl along with Diflucan which will help with the treatment of urinary tract infection. All other chronic conditions remained stable while here in the hospital Vital Signs/Physical Exam: Temp Pulse Resp BP Pulse Ox 98.3 F 92 H 18 140/82 97 06/01/19 12:00 06/01/19 12:00 06/01/19 12:00 06/01/19 12:00 06/01/19 12:00 General: Alert, In no apparent distress HEENT: Atraumatic, PERRLA, EOMI Neck: Supple, JVD not distended Respiratory: Clear to auscultation bilaterally, Normal air movement Cardiovascular: Regular rate/rhythm, Normal S1 S2 Gastrointestinal: Normal bowel sounds, No tenderness Musculoskeletal: No tenderness Integumentary: No rashes Neurological: Normal speech, Normal tone, Normal affect Lymphatics: No axilla or inguinal lymphadenopathy Laboratory Data at Discharge: WBC 16.0 K/uL (4.3-10.9) H D 06/01/19 05:43 Hgb 11.9 g/dL (12.0-15.0) L 06/01/19 05:43 Hct 35.4 % (36.0-45.0) L 06/01/19 05:43 Plt Count 551 K/uL (152-406) H D 06/01/19 05:43 PT 11.7 SECONDS (9.5-12.5) 05/14/19 15:45 INR 0.99 05/14/19 15:45 Sodium 133 mmol/L (136-145) L 06/01/19 05:43 Potassium 4.2 mmol/L (3.5-5.1) 06/01/19 05:43 BUN 19 mg/dL (7-18) H 06/01/19 05:43 Creatinine 0.88 mg/dL (0.55-1.3) 06/01/19 05:43 Glucose 160 mg/dL (74-106) H 06/01/19 05:43 Uric Acid 8.3 mg/dL (2.6-6.0) H 05/15/19 05:00 Phosphorus 2.3 mg/dL (2.5-4.9) L 06/01/19 05:43 Magnesium 1.7 mg/dL (1.8-2.4) L 06/01/19 05:43 Total Bilirubin 0.7 mg/dL (0.2-1.0) 05/28/19 05:33 AST 12 U/L (15-37) L 05/28/19 05:33 ALT 10 U/L (12-78) L 05/28/19 05:33 Alkaline Phosphatase 99 U/L (45-117) 05/28/19 05:33 Home Medications: Amlodipine Besylate [Norvasc] 10 mg PO DAILY WITH BREAKFAST 09/01/15 Metformin HCl [Glucophage] 1,000 mg PO BID 09/01/15 glipiZIDE [Glucotrol*] 5 mg PO DAILY 09/01/15 Carvedilol [Coreg*] 25 mg PO BID 02/26/18 Ciprofloxacin HCl [Cipro 500 MG Tablet] 500 mg PO BID #28 tab 05/31/19 Fluconazole [Diflucan] 400 mg PO DAILY #30 tablet 05/31/19 Spironolactone [Aldactone*] 25 mg PO DAILY #30 tab 05/31/19 metroNIDAZOLE [Flagyl] 500 mg PO Q8H #42 tablet 05/31/19 New Medications: Ciprofloxacin HCl [Cipro 500 MG Tablet] 500 mg PO BID #28 tab Fluconazole [Diflucan] 400 mg PO DAILY #30 tablet metroNIDAZOLE [Flagyl] 500 mg PO Q8H #42 tablet Spironolactone [Aldactone*] 25 mg PO DAILY #30 tab Diet: Regular Activity: Ad aleksander Followup: Efraín Castro MD [ACTIVE - CAN ADMIT] -
--- NOTE | 2019-06-01 19:15 | PN ---
Subjective: Patient doing well, participating in physical therapy. Patient was admitted with coliti s, hyponatremia, acute kidney injury, recovered very well. Physical Examination: Vital Signs: When I saw the patient, blood pressure 140/82, pulse of 92, afebrile. Chest: Clear to auscultation. Heart: S1, S2. Regular. Abdomen: Soft, nontender. EXTREMITIES: No edema. Laboratory Data: H and H 11.9/35.4. Sodium 133, potassium 4.2, bicarb 28, BUN 19, creatinine 0.8, c alcium 7.5, phosphorus 2.3, magnesium 1.7. Current Medications: The patient on are include ciprofloxacin, Flagyl, hydralazine 10 b.i.d., spiron olactone 25 daily, pantoprazole, Zofran. Assessment And Plan: 1.Acute kidney injury, secondary to prerenal, recovered, resolved. 2.Hypokalemia, resolved. 3.Hypomagnesemia. We will supplement. 4.Deconditioning. Continue PT/OT. 5.Hyponatremia, secondary to depletion, resolved. KITTY/FAUSTO Voice ID: [id number] Report ID: [id number]
== END 2019-06-01 15:55 | DRG 329 ==
LOC: ER 14:33 → ERHOLD 16:04 → 3RD-ICU 20:22 → 2ND 05-18 18:15 → 4TH 05-20 17:35 → 3RD-ICU 05-22 13:20 → 2ND 05-27 16:00
PROVIDERS: ADMIT Family Medicine; ATTEND Family Medicine
PROC: 3E0336Z Introduction of Nutritional Substance into Peripheral Vein, Percutaneous Approach (ICD-10-PCS; 2019-05-21)
PROC: 06HM33Z Insertion of Infusion Device into Right Femoral Vein, Percutaneous Approach (ICD-10-PCS; 2019-05-21)
PROC: 0WQF0ZZ Repair Abdominal Wall, Open Approach (ICD-10-PCS; 2019-05-22)
PROC: 0DNW0ZZ Release Peritoneum, Open Approach (ICD-10-PCS; 2019-05-22)
PROC: 0D1B0Z4 Bypass Ileum to Cutaneous, Open Approach (ICD-10-PCS; 2019-05-22)
PROC: 0W9J0ZZ Drainage of Pelvic Cavity, Open Approach (ICD-10-PCS; 2019-05-22)
PROC: 0W9G0ZZ Drainage of Peritoneal Cavity, Open Approach (ICD-10-PCS; 2019-05-22)
PROC: 30233N1 Transfusion of Nonautologous Red Blood Cells into Peripheral Vein, Percutaneous Approach (ICD-10-PCS; 2019-05-22)
PROC: 5A1945Z Respiratory Ventilation, 24-96 Consecutive Hours (ICD-10-PCS; 2019-05-22)
PROC: 0DBB0ZZ Excision of Ileum, Open Approach (ICD-10-PCS; principal; 2019-05-22 10:10)
DX: K56.609 Unspecified intestinal obstruction, unspecified as to partial versus complete obstruction (principal); K65.1 Peritoneal abscess; K63.1 Perforation of intestine (nontraumatic); B37.7 Candidal sepsis; R65.21 Severe sepsis with septic shock; J96.01 Acute respiratory failure with hypoxia; E87.1 Hypo-osmolality and hyponatremia; N17.9 Acute kidney failure, unspecified; E86.0 Dehydration; E11.9 Type 2 diabetes mellitus without complications; R19.7 Diarrhea, unspecified; I48.2 Chronic atrial fibrillation; I10 Essential (primary) hypertension; D50.0 Iron deficiency anemia secondary to blood loss (chronic); E87.6 Hypokalemia; E83.39 Other disorders of phosphorus metabolism; D50.9 Iron deficiency anemia, unspecified; E83.42 Hypomagnesemia; H91.90 Unspecified hearing loss, unspecified ear
CPT/HCPCS: 36415; 36430; 51702; 70450; 71045; 71250; 72125; 74018; 74176; 74250; 76770; 76830; 80048; 80053; 80069; 80076; 80202; 80307; 80320; 81001; 81003; 81015; 82140; 82533; 82550; 82553; 82607; 82728; 82805; 82962; 83540; 83605; 83735; 83880; 83930; 83935; 84100; 84132; 84133; 84300; 84443; 84466; 84484; 84550; 85025; 85610; 86850; 86900; 86901; 87040; 87045; 87046; 87070; 87075; 87086; 87088; 87177; 87205; 87209; 87493; 88108; 88305; 88307; 93005; 93306; 94002; 94003; 94640; 96361; 96365; 96367; 97110; 97116; 97163; 97164; 97530; 99285; C9113; J0330; J0360; J0610; J0696; J1170; J1450; J1650; J1940; J2185; J2248; J2250; J2370; J2405; J2543; J2704; J2916; J3010; J3411; J3475; J7030; J7060; J7605; P9016; P9045; P9047

== ENCOUNTER 2019-06-01 11:26 | Inpatient (IN) | payer OTHER ==
--- NOTE | 2019-06-01 13:24 | R.PREADM ---
SCREENING DATE AND TIME 06/01/2019 11:28 (CDT) ANTICIPATED REHAB ADMISSION DATE 06/03/2019 REFERRING FACILITY [facility] REFERRAL DATE AND TIME 06/01/2019 11:30 (CDT) REFERRAL ROOM# 232 ACUTE ADMIT DATE 05/14/2019 Previous Rehabilitation(s): No. 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 Philip Elias M.D. MR# [id number] NAME ARCHANA LEE ADDRESS [id number] [place] [address] [address]IP [address] DATE OF 1945 AGE 73 SSN# [id number] GENDER female MARITAL STATUS RACE ADMIT FROM 02 - [facility] PRE-HOSPITAL LIVING SETTING 01 - Home (private home/apt. board/care, assisted living, prison, transitional living) HOME TYPE AND DETAILS Type of home: single family house # of steps to enter the residence: 4 # of levels in the residence: 1 # of steps within the residence: 0 PRE-HOSPITAL LIVING WITH Family/Relatives FAMILY SUPPORT Yes PRIMARY FAMILY CONTACT NAME Mateusz Lee PRIMARY FAMILY CONTACT PHONE PHONE PRIMARY FAMILY CONTACT ON ADM.? no IS PRIMARY FAMILY CONTACT AUTH. REP.? no 1ST EMERGENCY CONTACT Mateusz Lee 1ST CONTACT PHONE PHONE 1ST CONTACT ON ADM. no IS 1ST CONTACT AUTH. REP.? no PHONE 2ND CONTACT ON ADM.? no PATIENT EMPLOYMENT STATUS Retired (for age) PATIENT EMPLOYER No Employer PAYOR INFORMATION: 1ST PAYOR NAME [employer] [address] PAYOR INJURY/ILLNESS DUE TO ACCIDENT? No ANOTHER REPUBLICAN RESPONSIBLE? No PRIMARY REHAB/ACUTE DIAGNOSIS: Small Bowel Obstruction ONSET DATE 05/14/2019 REHAB IMPAIRMENT CATEGORY (LEATHA): 20 Miscellaneous (Misc) does NOT meet 60% rule PRIMARY DIAGNOSIS-RELATED SURGERIES: Exploratorylaparotomy, lysis of adhesions, repair of incisional hernia, small bowelresection, ileosto my and drainage of intraabdominal and pelvic abscess performed by Dr. Efraín Castro on May 22, 2019 COMORBID REHAB/ACUTE DIAGNOSES: - Tier 3 Type 2 diabetes mellitus with diabetic neuropathy, unspecified (E11.40) - N/A Hypertension Chronic Hearing Loss INTERVENTIONS: - Hypertension Fluid management Medications VS RISK FOR COMPLICATIONS: - Hypertension CVA Hypotension [place] TIA SUMMARY OF ACUTE HOSPITALIZATION: Pt. is a 73 yo Right-handed female. On 05/14/2019 she was admitted to [facility] with diagnosis Small Bowel Obstruc tion. Her impairment category is Debility 16 - Debility (16). Pre-morbidly, Pt. was independent/mod-I in Self-Care, Sphincter Control, Transfers Control, Locomotio n, Communication, and Social Cognition; and she had good Sphincter Control. Currently, she has deficits of Self-Care, Transfers Control, Locomotion, Endurance, Balance, and Safe ty Awareness. Pt. is now referred to [facility] for acute in-patient rehabilitation in order to maximize patient's functional independence in activities of daily living, strength, ROM, and mobi lity. Patient has realistic goal of being discharged at assistance level 6-Juan Manuel to reside at Home with Fam sandra/Relatives. Archana Lee is a 73 old female that lives in a single mayra house with 4 steps to enter with her and son. 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 On 05/14/2019, she had nause a, vomiting and abdominal pain and was admitted to [facility] and treated. She is now medically stabl e but in need of 24-hour nursing, doctor supervision and oversite while receiving participate in 3hours of therapy a day/15 hours per week and receive care with an intensive interdisciplinary approach. PAST MEDICAL HISTORY Chronic Hearing Loss Hypertension Type 2 diabetes mellitus with diabetic neuropathy, unspecified (E11.40) PAST SURGICAL HISTORY: Hysterectomy Cholecystectomy Cataract Surgery Bilateral Removal of basal cell carcinoma to right side of forehead Benign tumor removed from stomach MEDICATION ALLERGIES: No Known Drug Allergies (NKDA) ENVIRONMENTAL ALLERGIES: None Known - Substance Allergies None Known - Other Allergies None Known CODE STATUS: Full code WEIGHT/HEIGHT/BMI: WEIGHT 136 lbs HEIGHT 5' 1" BMI 25.7 DIET: - Diet Type ADA 1800 - Diet - Solid Texture GI SOFT - Diet - Liquid Texture Regular - Tube Feed N/A SKIN DIAGRAM: Incision on Abdomen; extent - small; stage - NS(Not Stageable). Treatment - Per Physician's Orders. REVIEW OF SYSTEMS: - Gen Alert and awake Lying in bed No apparent distress Oriented to: person, time, and place - Vital Signs Temperature: 97.4 F SBP/DBP: 144/76 Pulse: 82 Resp: 17 Vital signs stable, afebrile - CVS RRR VITAL SIGNS Temperature: 97.4 F SBP/DBP: 144/76 Pulse: 82 Resp: 17 Vital signs stable, afebrile MEDICATIONS/TREATMENT: Other- See attached MAR (Medication Administration Record) Jesus Archana.[email or web address]. CURRENT SPHINCTER CONTROL: Pre-hospital bladder status: continent # of bladder accidents in the last 7 days prior to screenin Pre-hospital bowel status: continent # of bowel accidents in the last 7 days prior to screenin Last Bowel Movement Date: 06/01/2019 DETAILED CURRENT FUNCTIONAL STATUS: - Bladder accident frequency: Ind - No accidents in the past 7 days - Bowel accident frequency: Ind - No accidents in the past 7 days - Walking score based on distance walked: 0(N/A) - Wheelchair score based on distance traveled: 0(N/A) FUNCTIONAL STATUS: - Self-Care A. Eating Ind sup B. Grooming Ind sup C. Bathing Ind sup D. Dressing - Upper Ind Paulina E. Dressing - Lower Ind Paulina F. Toileting Ind Paulina - Sphincter Control G: Bladder control Ind Ind H: Bowel control Ind Ind - Transfers Control I. Bed/Chair/Wheelchair Ind sup J. Toilet Ind sup K. Tub/Shower Ind ADNO - Locomotion L. Walk/Wheelchair (C) Ind CGA L. Walk/Wheelchair (W) Ind CGA M. Stairs Ind ADNO - Communication N. Comprehension (B) Ind Ind O. Expression (B) Ind Ind - Social Cognition P. Social Interaction Ind Ind Q. Problem Solving Ind Ind R. Memory Ind Ind - Endurance Fair - Balance Fair - Safety Awareness Fair CURRENT FUNC. DEFICITS: Self-Care, Transfers Control, Locomotion, Endurance, Balance, and Safety Awareness THERAPY NOTES FROM ACUTE CARE: Attached. SPECIAL NEEDS: - Safety Concerns Skin breakdown precautions needed due to skin breakdown risk PATIENT NEEDS ACTIVE AND ONGOING THERAPEUTIC INTERVENTION OF MULTIPLE THERAPY DISCIPLINES, INCLUDING: - Dietary and Nutrition Adequate Nutrition. Nutritional Education. Nutritional Supplements. PATIENT NEEDS CLOSE MEDICAL SUPERVISION BY A REHABILITATION PHYSICIAN FOR: Bowel and Bladder Management Coordination of Treatment Team Diabetes Management Medical and Co-Morbidity Management Wound Care PATIENT REQUIRES 24X7 REHAB NURSING FOR MEDICAL AND FUNCTIONAL MGT. OF THE FOLLOWING DEFICITS: ADL's Ambulation Bowel and Bladder Management Communication Disease Management Medication Management Patient/Family Education Providing Safe Environment Transfers Pain Management DVT Management PATIENT REQUIRES INTENSIVE, COORDINATED INTERDISCIPLINARY APPROACH TO REHAB: Arranging Home Equipment/Services Discharge Planning Family Intervention/Training Supercalender Operator/Case Management PATIENT REHAB POTENTIAL: Byron LEE is able and expected to receive 3 hours of individualized therapy daily on at least 5 of ev varghese 7 days Byron LEE's prognosis for significant practical improvement within a reasonable period of time appear s Good Expected level of measurable improvement will be of a practical value to Byron LEE's functional capac ity or adaptations to impairments Has a viable Discharge Plan Medically appropriate; condition is sufficiently stable to participate in intensive rehab program DISCHARGE PLAN: - Estimated Length of Stay (days) 13. - Consensus on plan Discharge plan has been discussed with primary caregiver. Patient/Family [facility] in [facility] Primary caregiver is in agreement with the plan. - Patient/Family Goals Return home with assistance. - Planned Living Setting Upon Discharge Home, to live with Family/Relatives. Transitional Living. RECOMMENDED CARE LEVEL: IRF RECOMMENDATION DETAILS: Recommended Admission to Comprehensive Rehabilitation Program to Increase Functional Calvin SCREENER'S COMPLETENESS CONFIRMATION: - Screening Confirmation The patient data collection on this preadmission screening form is finished PHYSICIANS REVIEW AND ADMISSION DETERMINATION Admit - Based on my review of the Pre-Admission Screening results, in my medical judgment and experie nce, I concur with the findings and recommend admission to [facility], as this patient requires an IRF level of care. SIGNATURE PANEL: Clinical Liaison - [electronically] signed by Lyla Andres on 06/01/2019 at 13:20 (CDT) Physician Reviewer - [electronically] signed by Dr. Philip Elias M.D. on 06/01/2019 at 13:25 (CDT )
--- OUTSIDE RECORDS SUMMARY | 2019-06-01 16:15 | XMS REPORT ---
[...] End Status Dosage System Date Date Coreg [facility] 37369919688 25 mg Orally Active 1 tablet Twice daily Klor-Con 10 [facility] 15027823306 10 MEQ Orally Active 1 tablet Twice a day with food Iron [facility] 45459542052 325 (65 Fe) MG Active 1 tablet Orally Once a day Telmisartan [facility] 68645878132 80 MG Orally Active 1 tablet Once a day Doxazosin [facility] 81159206505 1 MG Orally Gabby Active 1 tablet in Mesylate Once a day 2017 evening for high blood pressure GlipiZIDE [facility] 88963481986 5 MG Orally Active 1 tablet Once a day Metformin HCl [facility] 44888124709 1000 MG Orally Active 1 tablet Twice daily with a meal Vitamin D-3 [facility] 52486388136 1000 UNIT Active 2 capsules Orally Once a day Amlodipine [facility] 39388618054 10 MG Orally Active 1 tablet Besylate Once a day Results No Known Results Summary Purpose eClinicalWorks Submission
--- OUTSIDE RECORDS SUMMARY | 2019-06-01 16:15 | XMS REPORT ---
[...] Status Dosage System Date Date Ventolin HFA [facility] [id number] 108 (90 Base) Nov 24, Active 2 puffs as MCG/ACT 2019 needed for Inhalation sob/wheezin every 4-6 hrs g Metformin HCl [facility] 96366003139 1000 MG Orally Active 1 tablet Twice daily with a meal Doxazosin [facility] 67672992696 2 MG Orally February Active 1 tablet in Mesylate Once a day 2017 evening for high blood pressure Telmisartan [facility] 02634115626 80 MG Orally Active 1 tablet Once a day Vitamin D-3 [facility] 12128292984 1000 UNIT Active 2 capsules Orally Once a day Klor-Con 10 [facility] 25596551022 10 MEQ Orally Active 1 tablet Twice a day with food Iron [facility] 69157163994 325 (65 Fe) MG Active 1 tablet Orally Once a day Amlodipine [facility] 27964737801 10 MG Orally Active 1 tablet Besylate Once a day Augmentin [facility] 23299213678 500-125 MG Nov 24, Dec 04, Active 1 tablet Orally every 2018 2019 hrs Coreg [facility] 27145605985 25 mg Orally Active 1 tablet Twice daily Doxazosin [facility] 89272004350 1 MG Orally Aug 28, Active 1 tablet in Mesylate Once a day 2018 evening GlipiZIDE [facility] 10933745594 5 MG Orally Active 1 tablet Once a day Results Name Result Date Reference Range Unit Abnormality Flag COMPREHENSIVE METABOLIC PANEL(CMP) ----ALBUMIN/GLOBULI 1.6 [id number] 1.0-2.5 (calc) N N RATIO ----GLOBULIN 2.5 [id number] 1.9-3.7 g/dL N (calc) ----ALKALINE 58 20181125 33-130 U/L N PHOSPHATASE ----BILIRUBIN, 0.6 [id number] 0.2-1.2 mg/dL N TOTAL ----CHLORIDE 100 [id number] 98-110 mmol/L N ----ALT 10 [id number] 6-29 U/L N ----POTASSIUM 4.5 [id number] 3.5-5.3 mmol/L N ----AST 12 [id number] 10-35 U/L N ----SODIUM 136 20181125 135-146 mmol/L N ----BUN/CREATININE NOT APPLICABLE [id number] 6-22 (calc) RATIO ----eGFR 99 [id number] > OR=60 mL/min/1.7 [place] [address] ----CALCIUM 9.2 [id number] 8.6-10.4 mg/dL N ----CARBON DIOXIDE 29 20181125 20-32 mmol/L N ----ALBUMIN 4.0 85625758 3.6-5.1 g/dL N ----PROTEIN, TOTAL 6.5 20181125 6.1-8.1 g/dL N ----GLUCOSE 148 80133582 65-99 mg/dL H ----UREA NITROGEN 14 20181125 7-25 mg/dL N (BUN) ----CREATININE 0.70 20181125 0.60-0.93 mg/dL N ----eGFR NON-AFR. 85 [id number] > OR=60 mL/min/1.7 [place] [address] LIPID PANEL ----NON HDL 92 65430657 <130 mg/dL N CHOLESTEROL (calc) ----LDL-CHOLESTEROL 74 90111609 mg/dL N (calc) ----CHOL/HDLC RATIO 2.5 [id number] <5.0 (calc) N ----HDL CHOLESTEROL 63 [id number] >50 mg/dL N ----TRIGLYCERIDES 99 [id number] <150 mg/dL N ----CHOLESTEROL, 155 20181125 <200 mg/dL N TOTAL Summary Purpose eClinicalWorks Submission
--- OUTSIDE RECORDS SUMMARY | 2019-06-01 16:15 | XMS REPORT ---
[...] End Status Dosage System Date Date Amlodipine [facility] 24180491388 10 MG Orally Active 1 tablet Besylate Once a day Doxazosin [facility] 28692280374 1 MG Orally Gabby Active 1 tablet in Mesylate Once a day 2017 evening for high blood pressure Klor-Con 10 [facility] 09760868494 10 MEQ Orally Active 1 tablet Twice a day with food Coreg [facility] 94287802149 25 mg Orally Active 1 tablet Twice daily Telmisartan [facility] 75092980487 80 MG Orally Active 1 tablet Once a day Vitamin D-3 [facility] 77023515623 1000 UNIT Active 2 capsules Orally Once a day GlipiZIDE [facility] 31281141002 5 MG Orally Active 1 tablet Once a day Iron [facility] 97554163226 325 (65 Fe) MG Active 1 tablet Orally Once a day Metformin HCl [facility] 25799537307 1000 MG Orally Active 1 tablet Twice daily with a meal Results Name Result Date Reference Range Unit Abnormality Flag URINALYSIS AUTO W/O SCOPE (02734) ----NIT neg [id number] ----URO 0.2 [id number] ----PROTEIN neg [id number] ----pH 6.0 20180706 ----BLO neg [id number] ----GLUCOSE neg [id number] ----DEDE neg [id number] ----BILIRUBIN neg [id number] ----KETONES neg [id number] ----SPECIFIC GRAVITY 1.010 [id number] Summary Purpose eClinicalWorks Submission
--- OUTSIDE RECORDS SUMMARY | 2019-06-01 16:15 | XMS REPORT ---
[...] Status Dosage System Date Date Telmisartan [facility] 28273502807 80 MG Orally Active 1 tablet Once a day GlipiZIDE [facility] 22810142018 5 MG Orally Active 1 tablet Once a day Doxazosin [facility] 42477410680 1 MG Orally Gabby Active 1 tablet in Mesylate Once a day 2017 evening for high blood pressure Coreg [facility] 53721214167 25 mg Orally Active 1 tablet Twice daily Amlodipine [facility] 43332886415 10 MG Orally Active 1 tablet Besylate Once a day Klor-Con 10 [facility] 59744913549 10 MEQ Orally Active 1 tablet Twice a day with food Iron [facility] 88018922266 325 (65 Fe) MG Active 1 tablet Orally Once a day Vitamin D-3 [facility] 97581298262 1000 UNIT Active 2 capsules Orally Once a day Metformin HCl [facility] 99200063634 1000 MG Orally Active 1 tablet Twice daily with a meal Results Name Result Date Reference Range Unit Abnormality Flag URINALYSIS AUTO W/O SCOPE (70962) ----NIT neg [id number] ----URO 0.2 20180617 ----PROTEIN 1+ 20180617 ----pH 6.0 20180617 ----BLO neg [id number] ----GLUCOSE neg [id number] ----DEDE neg [id number] ----BILIRUBIN neg [id number] ----KETONES neg [id number] ----SPECIFIC GRAVITY >=1.030 20180617 PVR ----PVR 0 [id number] Summary Purpose eClinicalWorks Submission
--- OUTSIDE RECORDS SUMMARY | 2019-06-01 16:15 | XMS REPORT ---
:1945 Author Organization eClinicalWorks Care Team Providers Name Role Phone Natalia Ross Provider Role Unavailable Allergies No Known Allergies Problems Problem Type Condition Code Onset Dates Condition Status Problem Diabetes E11.9 Active Problem Hypertension, unspecified type I10 Active Problem Hypertension I10 Active Medications Medication Code System Code Instructions Start Date End Date Status Dosage Cipro [facility] 08933591803 500 MG Orally Jun 22, Jun 27, Active 1 tablet every 12 hrs 2017 2017 Results No Known Results Summary Purpose eClinicalWorks Submission
--- OUTSIDE RECORDS SUMMARY | 2019-06-01 16:16 | XMS REPORT ---
[...] finger prick 2018 once daily Doxazosin ND 83984965278 1 MG Orally Aug 28, Active 1 tablet in Mesylate Once a day 2017 evening GlipiZIDE [facility] 22610345543 5 MG Orally Active 1 tablet Once a day Vitamin D-3 ND 49408227509 1000 UNIT Active 2 capsules Orally Once a day Telmisartan ND 45778534395 80 MG Orally Active 1 tablet Once a day ProAir HFA [facility] 87479445561 108 (90 Base) Active 2 puffs as MCG/ACT needed for Inhalation SOB/wheezin every 4-6 hrs ig Ventolin HFA ND 69453897735 108 (90 Base) Nov 24, Active 2 puffs as MCG/ACT 2018 needed for Inhalation sob/wheezin every 4-6 hrs g Iron [facility] 25601410839 325 (65 Fe) MG Active 1 tablet Orally Once a day Metformin HCl ND 30511844575 1000 MG Orally Active 1 tablet Twice daily with a meal Klor-Con 10 [facility] 21110658254 10 MEQ Orally Active 1 tablet Twice a day with food Doxazosin ND 34202188084 2 MG Orally February Active 1 tablet in Mesylate Once a day 2017 evening for high blood pressure Coreg ND 30748672075 25 mg Orally Active 1 tablet Twice daily Amlodipine [facility] 91397163829 10 MG Orally Active 1 tablet Besylate Once a day Results No Known Results Summary Purpose eClinicalWorks Submission
--- OUTSIDE RECORDS SUMMARY | 2019-06-01 16:16 | XMS REPORT ---
[...] Medications Results No Known Results Summary Purpose eClinicalOpinewsTV Submission
--- OUTSIDE RECORDS SUMMARY | 2019-06-01 16:16 | XMS REPORT ---
:1945 Author Organization eClinicalWorks Care Team Providers Name Role Phone SopchoppyMounacy Provider Role Unavailable Allergies, Adverse Reactions, Alerts [...] End Status Dosage System Date Date Doxazosin [facility] 83501281116 2 MG Orally February Active 1 tablet in Mesylate Once a day 2017 evening for high blood pressure GlipiZIDE [facility] 09070043740 5 MG Orally Active 1 tablet Once a day One Touch test ND 0 test strips Dec 28, Active one strip strips finger prick 2018 once daily Doxazosin ND 57156117165 1 MG Orally Aug 28, Active 1 tablet in Mesylate Once a day 2017 evening Vitamin D-3 [facility] 88989319046 1000 UNIT Active 2 capsules Orally Once a day Coreg [facility] 33917698995 25 mg Orally Active 1 tablet Twice daily Telmisartan [facility] 76877812480 80 MG Orally Active 1 tablet Once a day ProAir HFA [facility] 71109042335 108 (90 Base) Active 2 puffs as MCG/ACT needed for Inhalation SOB/wheezin every 4-6 hrs ig Amlodipine ND 63311962443 10 MG Orally Active 1 tablet Besylate Once a day Ventolin HFA [facility] 42469189156 108 (90 Base) Nov 24, Active 2 puffs as MCG/ACT 2019 needed for Inhalation sob/wheezin every 4-6 hrs g Iron [facility] 79328939294 325 (65 Fe) MG Active 1 tablet Orally Once a day Klor-Con 10 [facility] 96845198138 10 MEQ Orally Active 1 tablet Twice a day with food Metformin HCl ND 64775115434 1000 MG Orally Active 1 tablet Twice daily with a meal Results Name Result Date Reference Range Unit Abnormality Flag URINALYSIS AUTO W/O SCOPE (76243) ----NIT neg [id number] ----URO 0.2 20190104 ----PROTEIN neg 20190104 ----pH 6.0 20190104 ----BLO neg 20190104 ----GLUCOSE neg 20190104 ----DEDE tr 20190104 ----BILIRUBIN neg 20190104 ----KETONES neg 20190104 ----SPECIFIC GRAVITY <=1.005 20190104 Summary Purpose eClinicalWorks Submission
--- OUTSIDE RECORDS SUMMARY | 2019-06-01 16:16 | XMS REPORT ---
[...] Medications Results No Known Results Summary Purpose eClinicalEnergie Etiche Submission
--- OUTSIDE RECORDS SUMMARY | 2019-06-01 16:16 | XMS REPORT ---
[...] End Status Dosage System Date Date Iron [facility] 00434553193 325 (65 Fe) MG Active 1 tablet Orally Once a day Vitamin D-3 [facility] 54549931090 1000 UNIT Active 2 capsules Orally Once a day GlipiZIDE [facility] 95591275338 5 MG Orally Active 1 tablet Once a day Doxazosin [facility] 14449168439 2 MG Orally February Active 1 tablet in Mesylate Once a day 2017 evening for high blood pressure One Touch test NDC 0 test strips Dec 28, Active one strip strips finger prick 2018 once daily Doxazosin [facility] 88232946039 1 MG Orally Aug 28, Active 1 tablet in Mesylate Once a day 2017 evening Klor-Con 10 [facility] 44446167199 10 MEQ Orally Active 1 tablet Twice a day with food Coreg ND 99528909226 25 mg Orally Active 1 tablet Twice daily Telmisartan [facility] 17951962865 80 MG Orally Active 1 tablet Once a day Metformin HCl ND 33285931012 1000 MG Orally Active 1 tablet Twice daily with a meal Ventolin HFA [facility] 67964255084 108 (90 Base) Nov 24, Active 2 puffs as MCG/ACT 2019 needed for Inhalation sob/wheezin every 4-6 hrs g ProAir HFA [facility] 38928144044 108 (90 Base) Active 2 puffs as MCG/ACT needed for Inhalation SOB/wheezin every 4-6 hrs ig Amlodipine [facility] 57860459715 10 MG Orally Active 1 tablet Besylate Once a day Results No Known Results Summary Purpose eClinicalWorks Submission
--- OUTSIDE RECORDS SUMMARY | 2019-06-01 16:16 | XMS REPORT ---
[...] Status Dosage System Date Date ProAir HFA [facility] 75804984116 108 (90 Base) Active 2 puffs as MCG/ACT needed for Inhalation SOB/wheezin every 4-6 hrs ig One Touch test ND 0 test strips Dec 28, Active one strip strips finger prick 2018 once daily Vitamin D-3 [facility] 03418643593 1000 UNIT Active 2 capsules Orally Once a day Iron [facility] 90721133512 325 (65 Fe) MG Active 1 tablet Orally Once a day GlipiZIDE [facility] 79625175691 5 MG Orally Active 1 tablet Once a day Amlodipine [facility] 51698153076 10 MG Orally Active 1 tablet Besylate Once a day Coreg ND 31887821055 25 mg Orally Active 1 tablet Twice daily Doxazosin [facility] 18063318891 1 MG Orally Aug 28, Active 1 tablet in Mesylate Once a day 2017 evening Ventolin HFA [facility] 34730732155 108 (90 Base) Nov 24, Active 2 puffs as MCG/ACT 2018 needed for Inhalation sob/wheezin every 4-6 hrs g Klor-Con [address] [facility] 97914793393 10 MEQ Orally Active 1 tablet Twice a day with food Doxazosin [facility] 13876142740 2 MG Orally February Active 1 tablet in Mesylate Once a day 2017 evening for high blood pressure Metformin HCl ND 42759327413 1000 MG Orally Active 1 tablet Twice daily with a meal Telmisartan [facility] 91847914085 80 MG Orally Active 1 tablet Once a day Results No Known Results Summary Purpose eClinicalWorks Submission
--- OUTSIDE RECORDS SUMMARY | 2019-06-01 16:16 | XMS REPORT ---
[...] End Status Dosage System Date Date GlipiZIDE [facility] 21507703659 5 MG Orally Active 1 tablet Once a day Metformin HCl [facility] 01695543296 1000 MG Orally Active 1 tablet Twice daily with a meal Iron [facility] 92704310913 325 (65 Fe) MG Active 1 tablet Orally Once a day ProAir HFA [facility] [address]-68 108 (90 Base) Active 2 puffs as MCG/ACT needed for Inhalation SOB/wheezin every 4-6 hrs ig Ventolin HFA [facility] 32305335721 108 (90 Base) Nov 24, Active 2 puffs as MCG/ACT 2019 needed for Inhalation sob/wheezin every 4-6 hrs g Coreg [facility] 75317323195 25 mg Orally Active 1 tablet Twice daily Doxazosin [facility] 27671744664 2 MG Orally February Active 1 tablet in Mesylate Once a day 2017 evening for high blood pressure Amlodipine ND 59772029417 10 MG Orally Active 1 tablet Besylate Once a day Klor-Con 10 [facility] 50948271928 10 MEQ Orally Active 1 tablet Twice a day with food Vitamin D-3 [facility] 08638854615 1000 UNIT Active 2 capsules Orally Once a day Doxazosin ND 41291273401 1 MG Orally Aug 28, Active 1 tablet in Mesylate Once a day 2017 evening Augmentin [facility] 08556576177 500-125 MG Nov 24, Dec 04, Active 1 tablet Orally every 2018 2019 hrs Telmisartan [facility] 43837154432 80 MG Orally Active 1 tablet Once a day Results No Known Results Immunizations Vaccine Administration Date Pneumovax Dec 01, 2018 Summary Purpose eClinicalWorks Submission
--- OUTSIDE RECORDS SUMMARY | 2019-06-01 16:16 | XMS REPORT ---
[...] Active Problem Essential hypertension I10 Active Problem Wheezing R06.2 Active Assessment Sigmoid diverticulitis K57.32 Active Problem Sigmoid diverticulitis K57.32 Active Assessment Acute pain of right knee M25.561 Active Assessment Follow-up exam Z09 Active Problem URI, acute J06.9 Active Problem Depression screening Z13.31 Active Problem Bleeding external hemorrhoids K64.4 Active Problem Non-intractable vomiting with R11.2 Active nausea, unspecified vomiting type Problem Generalized abdominal pain R10.84 Active Assessment URI, acute J06.9 Active Assessment Shortness of breath R06.02 Active Assessment Non-intractable vomiting with R11.2 Active nausea, unspecified vomiting type Assessment Generalized abdominal pain R10.84 Active Problem Abnormal chest x-ray R93.89 Active Problem Enlarged heart I51.7 Active Assessment Wheezing R06.2 Active Problem Shortness of breath R06.02 Active Problem Hypertension, unspecified type I10 Active Medications Medication Code Code Instructions Start End Status Dosage System Date Date Metformin HCl ND 01157868109 1000 MG Orally Active 1 tablet Twice daily with a meal Coreg ND 35151969623 25 mg Orally Active 1 tablet Twice daily Ventolin HFA [facility] 94532059877 108 (90 Base) Nov 24, Active 2 puffs as MCG/ACT 2019 needed for Inhalation sob/wheezin every 4-6 hrs g Klor-Con 10 [facility] 29769683599 10 MEQ Orally Active 1 tablet Twice a day with food Tessalon Perles [facility] 06647135481 100 MG Orally May 04May Active 1 capsule Three times a 2019 05, as needed day 2019 for cough ProAir HFA [facility] 64961501319 108 (90 Base) Active 2 puffs as MCG/ACT needed for Inhalation SOB/wheezin every 4-6 hrs ig Amlodipine [facility] 26780590042 10 MG Orally Active 1 tablet Besylate Once a day Telmisartan [facility] 44262408774 80 MG Orally Active 1 tablet Once a day Vitamin D-3 [facility] 19549125854 1000 UNIT Active 2 capsules Orally Once a day Doxazosin [facility] 83602296505 1 MG Orally Aug 28, Active 1 tablet in Mesylate Once a day 2017 evening Iron [facility] 31677138943 325 (65 Fe) MG Active 1 tablet Orally Once a day Augmentin [facility] 84887440332 500-125 MG May 04May Active 1 tablet Orally every 2018 05, hrs 2019 One Touch test ND 0 test strips Dec 28, Active one strip strips finger prick 2018 once daily GlipiZIDE [facility] 31820269892 5 MG Orally Active 1 tablet Once a day Doxazosin [facility] 07967560307 2 MG Orally February Active 1 tablet in Mesylate Once a day 2017 evening for high blood pressure Results No Known Results Summary Purpose eClinicalWorks Submission
--- OUTSIDE RECORDS SUMMARY | 2019-06-01 16:16 | XMS REPORT ---
[...] Status Dosage System Date Date Vitamin D-3 [facility] 2[facility] 46632818532 1000 UNIT Active 2 capsules Orally Once a day Iron [facility]NOTE 2] 88826300508 325 (65 Fe) MG Active 1 tablet Orally Once a day Telmisartan [facility] [place]NOTE 2] 07144102863 80 MG Orally Active 1 tablet Once a day One Touch test ND 0 test strips Dec 28, Active one strip strips finger prick 2018 once daily GlipiZIDE [facility] [place]NOTE 2] 07431430446 5 MG Orally Active 1 tablet Once a day Doxazosin ND 75888004176 1 MG Orally Aug 28, Active 1 tablet in Mesylate Once a day 2017 evening Klor-Con 10 [facility] [place]NOTE 2] 06865192539 10 MEQ Orally Active 1 tablet Twice a day with food Amlodipine [facility] [place]NOTE 2] 37204724778 10 MG Orally Active 1 tablet Besylate Once a day Tessalon Perles ND 71427092918 100 MG Orally May 04May Active 1 capsule Three times a 2019 05, as needed day 2018 for cough Doxazosin ND 90477632829 2 MG Orally February Active 1 tablet in Mesylate Once a day 2017 evening for high blood pressure ProAir HFA [facility] [place]NOTE 2] 77902879852 108 (90 Base) Active 2 puffs as MCG/ACT needed for Inhalation SOB/wheezin every 4-6 hrs ig Metformin HCl [facility] [place]NOTE 2] 99736126385 1000 MG Orally Active 1 tablet Twice daily with a meal Ventolin HFA [facility] [place]NOTE 2] 52683704116 108 (90 Base) Nov 24, Active 2 puffs as MCG/ACT 2019 needed for Inhalation sob/wheezin every 4-6 hrs g Augmentin [facility] [place]NOTE 2] 53232470282 500-125 MG May 04May Active 1 tablet Orally every 2018 05, hrs 2019 Coreg [facility] [place]NOTE 2] 27854816693 25 mg Orally Active 1 tablet Twice daily Results Name Result Date Reference Range Unit Abnormality Flag STREP A RAPID ----Result Negative [id number] Summary Purpose eClinicalWorks Submission
[2019-06-01] MEDS ORDERED: GLUCAGON 1 MG/VIAL IM PRN (16:38)
[2019-06-01] MEDS ORDERED: D50W 25 GM/50 ML SYRINGE IV PRN (16:38)
[2019-06-01] MEDS ORDERED: DOCUSATE NA/SENNA CONC 1 TAB PO PRN (16:48)
[2019-06-01] MEDS ORDERED: TRAMADOL HCL 50 MG TAB PO PRN (16:48)
[2019-06-01] MEDS ORDERED: ONDANSETRON 4 MG (ODT) TAB PO PRN (16:51)
[2019-06-01] MEDS: CARVEDILOL 25 MG TAB PO SCH (17:24)
[2019-06-01] MEDS: metroNIDAZOLE 500 MG TABLET PO SCH (17:25)
[2019-06-01] MEDS: METFORMIN HCL 500 MG TAB PO SCH (17:25)
[2019-06-01 19:31] VITALS: BMI 24.3
[2019-06-01 19:45] LABS: Urine Appearance CLEAR; Urine Bilirubin NEGATIVE (NEG); Urine Blood NEGATIVE (NEG); Urine Color YELLOW; Urine Glucose NEGATIVE (NEG); Urine Protein NEGATIVE (NEG); Urine Specific Gravity <=1.005 (1.005-1.030); Urine Urobilinogen 0.2 mg/dL (0.2-1.0)
[2019-06-01] MEDS: MAGNESIUM OXIDE 400 MG TAB PO SCH (20:11)
[2019-06-01] MEDS: CIPROFLOXACIN HCL 500 MG TAB PO SCH (20:12)
[2019-06-01 21:35] LABS: Urine Bacteria <20 /HPF (<20); Urine Culture Reflex Order NOT NEEDED; Urine RBC NONE SEEN /HPF (NONE SEEN)
[2019-06-01] MEDS: INSULIN -REGULAR HUMAN 50 UNIT/0.5 ML ML SQ SCH (22:48)
--- NOTE | 2019-06-02 00:30 | FAST ---
SHIFT START DATE/TIME: 06/01/2019 19:00 (CDT) SHIFT END DATE/TIME: 06/02/2019 07:00 (CDT) NAME ARCHANA VANN DATE OF : 1945 DATE OF ADMISSION: 06/01/2019 16:13 (CDT) PHONE: AGE: 73 SSN# [id number] GENDER: Female ENCOUNTER PHYSICIAN: Dr. Philip Elias M.D. ADMISSION DIAGNOSIS: - Debility 16 - Debility (16) Small Bowel Obstruction. EATING: Activity did not occur on this shift EATING - SCORE: 0-UNK GROOMING: Wash, rinse, and dry hands GROOMING - STEP 1: Does the patient require the assistance of a person or device, or need extra time when grooming? Yes. GROOMING - STEP 2: Does the patient require the assistance of a helper? Yes. GROOMING - STEP 3: How much assistance does the patient require from the helper? Only prior equipment preparation/set up from the helper GROOMING - SCORE: 5-SUP BATHING: Activity did not occur on this shift BATHING - SCORE: 0-UNK DRESSING - UPPER BODY: Patient is not dressing in public clothing ARTICLES SCORE Total number of steps: 0 DRESSING - UPPER BODY - SCORE: 0-UNK DRESSING - LOWER BODY: Patient is not dressing in public clothing ARTICLES SCORE Total number of steps: 0 DRESSING - LOWER BODY - SCORE: 0-UNK TOILETING: TOILETING - STEP 1: Does the patient require the assistance of a person or device, or need extra time with toileting? Yes . TOILETING - STEP 2: Does the patient require the assistance of a helper? Yes. TOILETING - STEP 3: How much assistance does the patient require from the helper? Hands-on assistance from the helper TOILETING - STEP 4: Of the 3 tasks: 1) Adjusting clothing prior to use, 2) Cleansing of perineal area, 3) Adjusting clot adelina after use; How many tasks does the patient perform WITHOUT assistance of the helper? One task TOILETING - SCORE: 2-MAX BLADDER MANAGEMENT: BLADDER MANAGEMENT - STEP 1: Does the patient control the bladder completely and intentionally without equipment or devices or med ications, and is always continent? No. BLADDER MANAGEMENT - STEP 2: Does the patient require the assistance of a helper? Yes. BLADDER MANAGEMENT - STEP 3: How much assistance does the patient require from the helper? Only set-up of equipment - such as plac ing it within reach of the patient or emptying a device - to maintain either satisfactory voiding pat tern or managing an external device, such as an absorbent pad, ileal device, or catheter BLADDER MANAGEMENT - SCORE: 5-SUP BOWEL MANAGEMENT: Colostomy care provided by [facility] (patient performs less than 25% of colostomy care). BOWEL MANAGEMENT - SCORE: 1-DEP TRANSFERS: BED, CHAIR, WHEELCHAIR: TRANSFERS: BED, CHAIR, WHEELCHAIR - STEP 1: Does the patient require assistance of a person or device, or need extra time with bed, chair, or whe elchair transfers? Yes. TRANSFERS: BED, CHAIR, WHEELCHAIR - STEP 2: Does the patient require the assistance of a helper? Yes. TRANSFERS: BED, CHAIR, WHEELCHAIR - STEP 3: How much assistance does the patient require from the helper? Lifting of the legs TRANSFERS: BED, CHAIR, WHEELCHAIR - STEP 4: How many legs does the patient require the helper to lift? both legs TRANSFERS: BED, CHAIR, WHEELCHAIR - SCORE: 3-MOD TRANSFERS: TOILET: TRANSFERS: TOILET - STEP 1: Does the patient require the assistance of a person or device, or need extra time with toilet transfe rs? Yes. TRANSFERS: TOILET - STEP 2: Does the patient require the assistance of a helper? Yes. TRANSFERS: TOILET - STEP 3: How much assistance does the patient require from the helper? Only supervision, cuing, coaxing, OR he lp to set out transfer equipment or to lock brakes and/or lift foot rests TRANSFERS: TOILET - SCORE: 5-SUP TRANSFERS: SHOWER: Activity did not occur on this shift TRANSFERS: SHOWER - SCORE: 0-UNK TRANSFERS: TUB: Activity did not occur on this shift TRANSFERS: TUB - SCORE: 0-UNK LOCOMOTION: WALK: Activity did not occur on this shift LOCOMOTION: WALK - SCORE: 0-UNK LOCOMOTION: WHEELCHAIR: Activity did not occur on this shift LOCOMOTION: WHEELCHAIR - SCORE: 0-UNK COMPREHENSION: COMPREHENSION: TYPE: Both COMPREHENSION - STEP 1: Does the patient require help from a person or device, or need extra time to understand complex and a bstract ideas (such as current events, finances, discharge planning, medical issues, relationships, e tc)? No. COMPREHENSION - STEP 2: Does the patient need extra time, require an assistive device (such as glasses for visual comprehensi on or a hearing aid for auditory comprehension) or does s/he have mild difficulty understanding compl ex and abstract information? Yes. COMPREHENSION - SCORE: 6-CHRISTINA EXPRESSION EXPRESSION: TYPE: Both EXPRESSION - STEP 1: Does the patient require help from a person or device, or need extra time expressing complex and abst ract ideas (such as current events, finances, discharge planning, medical issues, relationships, etc) ? No. EXPRESSION - STEP 2: Does the patient need extra time, require an assistive device (such as augmentive communication syste m or a communication board), OR does s/he have mild difficulty expressing complex and abstract ideas (including mild dysarthria or mild word-find problems)? Yes. EXPRESSION - SCORE: 6-CHRISTINA SOCIAL INTERACTION: SOCIAL INTERACTION - STEP 1: Does the patient require a helper to interact with others in social and therapeutic situations? No. SOCIAL INTERACTION - STEP 2: Does the patient need extra time in social situations, OR does s/he interact with staff, other patien ts, and family members ONLY in structured environments, OR does s/he require medication for social in teraction? Yes, patient needs extra time SOCIAL INTERACTION - SCORE: 6-CHRISTINA PROBLEM SOLVING: PROBLEM SOLVING - STEP 1: Does the patient need help from a person or device, or need extra time to solve complex problems such as managing a checking account or confronting interpersonal problems? Yes. PROBLEM SOLVING - STEP 2: Does the patient solve basic routine problems half or more of the time? Yes. PROBLEM SOLVING - STEP 3: How often does the patient need help to solve basic routine problems? 10%-24% of the time PROBLEM SOLVING - SCORE: 4-MIN MEMORY: MEMORY - STEP 1: Does the patient need help from a person or device, or need extra time to remember frequently encount ered people, daily routines, and executing requests? No. MEMORY - STEP 2: Does the patient have slight difficulty recognizing frequently encountered people, daily routines, or executing requests without the need for repetition or using self-initiated or environmental cues to remember? Yes. MEMORY - SCORE: 6-CHRISTINA SIGNATURE PANEL: The following modified sections: Eating - Score, Grooming - Score, Dressing - Upper Body - Score, Lalito ssing - Lower Body - Score, Toileting - Score, Bladder Management - Score, Bowel Management - Score, Transfers: Bed, Chair, Wheelchair - Score, Transfers: Toilet - Score, Transfers: Shower - Score, Randle sfers: Tub - Score, Locomotion: Walk - Score, Locomotion: Wheelchair - Score, Comprehension - Score, Expression - Score, Social Interaction - Score, Problem Solving - Score, Memory - Score were [electro nically] signed by Genia Moon CNA on FriJun 02 2019 00:29:41 GMT-0500 (Central Daylight Time)
[2019-06-02] MEDS: metroNIDAZOLE 500 MG TABLET PO SCH ×3 (00:58→17:43)
[2019-06-02] MEDS: MELATONIN 3 MG TABLET PO PRN ×2 (01:05→21:08)
[2019-06-02] MEDS: CARVEDILOL 25 MG TAB PO SCH ×2 (05:10→17:43)
[2019-06-02 06:11] LABS: Absolute Lymphocytes (CBC) 0.9 K/uL (0.7-4.9); Basophils % 0.6 % (0-1.3); Hematocrit 33.6 % (36.0-45.0); Lymphocytes % 6.1 % (15.3-44.8); MPV 7.8 fL (7.6-11.3); RBC Red Blood Cell Count 3.99 M/uL (3.86-4.86)
[2019-06-02 06:33] LABS: Albumin 2.2 g/dL (3.4-5.0); Magnesium 1.7 mg/dL (1.8-2.4); Potassium 3.9 mmol/L (3.5-5.1); Prealbumin 16.4 mg/dL (20-40)
[2019-06-02] MEDS: HEPARIN 5000 UNIT/ML 1 ML VIAL SQ SCH (07:08)
[2019-06-02] MEDS: INSULIN -REGULAR HUMAN 50 UNIT/0.5 ML ML SQ SCH ×4 (07:30→20:13)
[2019-06-02 08:13] LABS: Anisocytosis 1+; Blood Morphology Comment NOTED (NOT SEEN); Platelet Estimate INCR; Urine White Blood Cell Casts OK
[2019-06-02] MEDS: AMLODIPINE 10 MG TAB PO SCH (08:30)
[2019-06-02] MEDS: PANTOPRAZOLE 40MG TABLET PO SCH (08:31)
[2019-06-02] MEDS: SPIRONOLACTONE 25 MG TABLET PO SCH (08:31)
[2019-06-02] MEDS: METFORMIN HCL 500 MG TAB PO SCH ×2 (08:32→17:43)
[2019-06-02] MEDS: MAGNESIUM OXIDE 400 MG TAB PO SCH ×2 (08:34→20:00)
[2019-06-02] MEDS: CIPROFLOXACIN HCL 500 MG TAB PO SCH ×2 (08:34→20:12)
[2019-06-02] MEDS: glipiZIDE 5 MG TAB PO SCH (08:39)
[2019-06-02] MEDS: FLUCONAZOLE 100 MG TAB PO SCH (08:40)
[2019-06-02] MEDS: ACETAMINOPHEN 500 MG TAB PO PRN ×2 (08:42→20:13)
--- NOTE | 2019-06-02 13:20 | P.CNS ---
Chief Complaint: Abd pain History of Present Illness: This is a 73-year-old female with significant past medical history who was admitted to the inpatient rehab after being discharged from the hospital after she was found to have colonic perforation with abscess formation. Patient has been doing well overall and has been admitted to rehab for improvement of her functional status and to complete her antibiotics. Allergies No Known Allergies Allergy (Unverified 05/31/19 10:42) Home Medications: Amlodipine Besylate [Norvasc] 10 mg PO DAILY WITH BREAKFAST 09/01/15 Metformin HCl [Glucophage] 1,000 mg PO BID 09/01/15 glipiZIDE [Glucotrol*] 5 mg PO DAILY 09/01/15 Carvedilol [Coreg*] 25 mg PO BID 02/26/18 Ciprofloxacin HCl [Cipro 500 MG Tablet] 500 mg PO BID #28 tab 05/31/19 Fluconazole [Diflucan] 400 mg PO DAILY #30 tablet 05/31/19 Spironolactone [Aldactone*] 25 mg PO DAILY #30 tab 05/31/19 metroNIDAZOLE [Flagyl] 500 mg PO Q8H #42 tablet 05/31/19 - Past Medical/Surgical History Diabetic: Yes -: HTN -: Diabetes mellitus type 2, non insulin dependent -: Chronic Hearing loss -: Hysterectomy -: Cholecystectomy -: remington cataract sx -: 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 She is . - Family History Mother Medical History: Hypertension, Diabetes Sister Medical History: Hypertension, Diabetes Dad & Mom Medical History: Hypertension, Diabetes - Social History Alcohol use: No CD- Drugs: No Caffeine use: Yes Place of Residence: Home Review of Systems 10-point ROS is otherwise unremarkable Physical Examination Temp Pulse Resp BP Pulse Ox 96.8 F 85 20 146/75 H 97 06/02/19 07:21 06/02/19 08:31 06/02/19 07:21 06/02/19 08:31 06/02/19 07:21 General: Alert, In no apparent distress HEENT: Atraumatic, PERRLA, Mucous membr. moist/pink, EOMI, Sclerae nonicteric Neck: Supple, 2+ carotid pulse no bruit, No LAD, Without JVD or thyroid abnormality Respiratory: Clear to auscultation bilaterally, Normal air movement Cardiovascular: Regular rate/rhythm, Normal S1 S2 Gastrointestinal: Normal bowel sounds, Other (Ileostomy tube) Musculoskeletal: No tenderness Integumentary: No rashes Neurological: Normal gait, Normal speech, Normal tone, Normal affect Lymphatics: No axilla or inguinal lymphadenopathy Laboratory Data (last 24 hrs) 06/02/19 05:54: Sodium 133 L, Potassium 3.9, BUN 18, Creatinine 0.89, Glucose 162 H, Magnesium 1.7 L 06/02/19 05:45: WBC 14.6 H, Hgb 11.2 L, Hct 33.6 L, Plt Count 568 H - Problems (1) Encounter for rehabilitation Current Visit: Yes Status: Acute (2) Fungemia Current Visit: No Status: Acute Plan: Patient blood was positive for Therese glabrata has finish 7 day course of Micofungin and now continues to be on Diflucan which needs to be continued for total 30 days. (3) Perforation bowel Current Visit: No Status: Acute Plan: Patient status post perforated by our prior with abdominal abscess removal now with the ileostomy bag -currently on p.o. Cipro and Flagyl will continue that here in the hospital for total 14 days 12/24 -monitor patient closely ileostomy bag is functional at this time. Will need ostomy bag supply at discharge -will need vitamin B12 is well (4) Diabetes Onset Date: 09/12/15 Current Visit: No Status: Chronic Qualifiers: Diabetes mellitus type: type 2 Diabetes mellitus usp insulin use: without usp use Diabetes mellitus complication status: without complication Qualified Code(s): E11.9 - Type 2 diabetes mellitus without complications (5) Essential hypertension Onset Date: 02/27/18 Current Visit: No Status: Chronic Conclusions/Impression: Will follow along with rehab to manage chronic medical conditions at this time. Critical Care: No
--- NOTE | 2019-06-02 15:18 | FAST ---
ENCOUNTER DATE AND TIME: 06/02/2019 08:00 (CDT) NAME ARCHANA VANN DATE OF : 1945 DATE OF ADMISSION: 06/01/2019 16:13 (CDT) PHONE: AGE: 73 SSN# [id number] GENDER: Female ENCOUNTER PHYSICIAN: Dr. Philip Elias M.D. ADMISSION DIAGNOSIS: - Debility 16 - Debility (16) Small Bowel Obstruction. EATING: Activity did not occur on this shift EATING - SCORE: 0-UNK GROOMING: Comb/brush hair Oral care Wash, rinse, and dry face Wash, rinse, and dry hands GROOMING - STEP 1: Does the patient require the assistance of a person or device, or need extra time when grooming? No. GROOMING - SCORE: 7-IND BATHING: Abdomen Buttocks Chest Left arm Left lower leg and foot Left upper leg Perineal area Right arm Right upper leg BATHING - STEP 1: Does the patient require the assistance of a person or device, or need extra time when bathing? Yes. BATHING - STEP 2: Does the patient require the assistance of a helper? Yes. BATHING - STEP 3: How much assistance does the patient require from the helper? Only incidental help such as placement of a wash cloth in his/her hand a few times as s/he bathes OR help to bathe just one or two areas of the body BATHING - SCORE: 4-MIN DRESSING - UPPER BODY: Bra (three steps) T-shirt/pullover shirt (four steps) ARTICLES SCORE Total number of steps: 7 DRESSING - UPPER BODY - STEP 1: Does the patient require help from a person or device, or need extra time when dressing above the emily st? Yes. DRESSING - UPPER BODY - STEP 2: Does the patient require the assistance of a helper? Yes. DRESSING - UPPER BODY - STEP 3: Does the helper touch the patient while dressing? Yes. DRESSING - UPPER BODY - STEP 4: How many of the total steps does the patient complete on his/her own? 6 DRESSING - UPPER BODY - SCORE: 4-MIN DRESSING - LOWER BODY: Elastic waist pants (three steps) Slip-on shoe - Left foot (one step) Slip-on shoe - Right foot (one step) Underwear (three steps) ARTICLES SCORE Total number of steps: 8 DRESSING - LOWER BODY - STEP 1: Does the patient require help from a person or device, or need extra time when dressing below the emily st? Yes. DRESSING - LOWER BODY - STEP 2: Does the patient require the assistance of a helper? Yes. DRESSING - LOWER BODY - STEP 3: Does the helper touch the patient while dressing? Yes. DRESSING - LOWER BODY - STEP 4: How many of the total steps does the patient complete on his/her own? 5 DRESSING - LOWER BODY - SCORE: 3-MOD TOILETING: Activity did not occur on this shift TOILETING - SCORE: 0-UNK BLADDER MANAGEMENT: Activity did not occur on this shift BLADDER MANAGEMENT - SCORE: 7-IND BOWEL MANAGEMENT: Activity did not occur on this shift BOWEL MANAGEMENT - SCORE: 7-IND TRANSFERS: BED, CHAIR, WHEELCHAIR: Activity did not occur on this shift TRANSFERS: BED, CHAIR, WHEELCHAIR - SCORE: 0-UNK TRANSFERS: TOILET: Activity did not occur on this shift TRANSFERS: TOILET - SCORE: 0-UNK TRANSFERS: SHOWER: Activity did not occur on this shift TRANSFERS: SHOWER - SCORE: 0-UNK TRANSFERS: TUB: TRANSFERS: TUB - STEP 1: Does the patient require the assistance of a person or device, or need extra time with tub transfers? Yes. TRANSFERS: TUB - STEP 2: Does the patient require the assistance of a helper? Yes. TRANSFERS: TUB - STEP 3: How much assistance does the patient require from the helper? More than incidental help TRANSFERS: TUB - STEP 4: How much more help does the patient require from the helper? Loving lifts BOTH legs into or out of th e tub TRANSFERS: TUB - SCORE: 3-MOD LOCOMOTION: WALK: Activity did not occur on this shift LOCOMOTION: WALK - SCORE: 0-UNK LOCOMOTION: WHEELCHAIR: Activity did not occur on this shift LOCOMOTION: WHEELCHAIR - SCORE: 0-UNK LOCOMOTION: STAIRS: Activity did not occur on this shift LOCOMOTION: STAIRS - SCORE: 0-UNK COMPREHENSION: COMPREHENSION: TYPE: Both COMPREHENSION - STEP 1: Does the patient require help from a person or device, or need extra time to understand complex and a bstract ideas (such as current events, finances, discharge planning, medical issues, relationships, e tc)? Yes. COMPREHENSION - STEP 2: Does the patient require help to understand questions or statements about basic needs or ideas (such as hunger, thirst, sleep, safety, daily schedule, room location, or discomfort) half or more of the t daysi? No. COMPREHENSION - STEP 3: How often does the patient need help to understand directions and conversation about basic needs? Les s than 10% of the time COMPREHENSION - SCORE: 5-SUP EXPRESSION EXPRESSION: TYPE: Both EXPRESSION - STEP 1: Does the patient require help from a person or device, or need extra time expressing complex and abst ract ideas (such as current events, finances, discharge planning, medical issues, relationships, etc) ? No. EXPRESSION - STEP 2: Does the patient need extra time, require an assistive device (such as augmentive communication syste m or a communication board), OR does s/he have mild difficulty expressing complex and abstract ideas (including mild dysarthria or mild word-find problems)? Yes. EXPRESSION - SCORE: 6-CHRISTINA SOCIAL INTERACTION: SOCIAL INTERACTION - STEP 1: Does the patient require a helper to interact with others in social and therapeutic situations? No. SOCIAL INTERACTION - STEP 2: Does the patient need extra time in social situations, OR does s/he interact with staff, other patien ts, and family members ONLY in structured environments, OR does s/he require medication for social in teraction? Yes, patient needs extra time SOCIAL INTERACTION - SCORE: 6-CHRISTINA PROBLEM SOLVING: PROBLEM SOLVING - STEP 1: Does the patient need help from a person or device, or need extra time to solve complex problems such as managing a checking account or confronting interpersonal problems? Yes. PROBLEM SOLVING - STEP 2: Does the patient solve basic routine problems half or more of the time? Yes. PROBLEM SOLVING - STEP 3: How often does the patient need help to solve basic routine problems? 25%-49% of the time PROBLEM SOLVING - SCORE: 3-MOD MEMORY: MEMORY - STEP 1: Does the patient need help from a person or device, or need extra time to remember frequently encount ered people, daily routines, and executing requests? Yes. MEMORY - STEP 2: How often does the patient need help to remember frequently encountered people, daily routines, and e xecuting requests? 10% - 24% of the time MEMORY - SCORE: 4-MIN SIGNATURE PANEL: The following modified sections: Eating - Score, Grooming - Score, Bathing - Score, Dressing - Upper Body - Score, Dressing - Lower Body - Score, Toileting - Score, Transfers: Bed, Chair, Wheelchair - S core, Transfers: Toilet - Score, Transfers: Shower - Score, Transfers: Tub - Score, Comprehension - S core, Expression - Score, Social Interaction - Score, Problem Solving - Score, Memory - Score were [e lectronically] signed by Doreen Navas OT on FriJun 02 2019 15:16:53 T-0500 ([place] ylight Time)
--- NOTE | 2019-06-02 16:32 | FAST ---
ENCOUNTER DATE AND TIME: 06/02/2019 08:00 (CDT) NAME ARCHANA VANN DATE OF : 1945 DATE OF ADMISSION: 06/01/2019 16:13 (CDT) PHONE: AGE: 73 SSN# [id number] GENDER: Female ENCOUNTER PHYSICIAN: Dr. Philip Elias M.D. ADMISSION DIAGNOSIS: - Debility 16 - Debility (16) Small Bowel Obstruction. EATING: Activity did not occur on this shift EATING - SCORE: 0-UNK GROOMING: Activity did not occur on this shift GROOMING - SCORE: 0-UNK BATHING: Activity did not occur on this shift BATHING - SCORE: 0-UNK DRESSING - UPPER BODY: Activity did not occur on this shift Patient is not dressing in public clothing ARTICLES SCORE Total number of steps: 0 DRESSING - UPPER BODY - SCORE: 0-UNK DRESSING - LOWER BODY: Activity did not occur on this shift Patient is not dressing in public clothing ARTICLES SCORE Total number of steps: 0 DRESSING - LOWER BODY - SCORE: 0-UNK TOILETING: Activity did not occur on this shift TOILETING - SCORE: 0-UNK BLADDER MANAGEMENT: Activity did not occur on this shift BLADDER MANAGEMENT - SCORE: 7-IND BOWEL MANAGEMENT: Activity did not occur on this shift BOWEL MANAGEMENT - SCORE: 7-IND TRANSFERS: BED, CHAIR, WHEELCHAIR: TRANSFERS: BED, CHAIR, WHEELCHAIR - STEP 1: Does the patient require assistance of a person or device, or need extra time with bed, chair, or whe elchair transfers? Yes. TRANSFERS: BED, CHAIR, WHEELCHAIR - STEP 2: Does the patient require the assistance of a helper? Yes. TRANSFERS: BED, CHAIR, WHEELCHAIR - STEP 3: How much assistance does the patient require from the helper? Steadying/guiding assistance TRANSFERS: BED, CHAIR, WHEELCHAIR - SCORE: 4-MIN TRANSFERS: TOILET: Activity did not occur on this shift TRANSFERS: TOILET - SCORE: 0-UNK TRANSFERS: SHOWER: Activity did not occur on this shift TRANSFERS: SHOWER - SCORE: 0-UNK TRANSFERS: TUB: Activity did not occur on this shift TRANSFERS: TUB - SCORE: 0-UNK LOCOMOTION: WALK: LOCOMOTION: WALK - STEP 1: Does the patient need help from a person or device, or need extra time to walk 150 feet? Yes. LOCOMOTION: WALK - STEP 2: How much assistance does the patient require to walk a minimum of 150 feet? Only incidental help such as contact guarding or steadying LOCOMOTION: WALK - SCORE: 4-MIN LOCOMOTION: WHEELCHAIR: Activity did not occur on this shift LOCOMOTION: WHEELCHAIR - SCORE: 0-UNK LOCOMOTION: STAIRS: LOCOMOTION: STAIRS - STEP 1: Does the patient need help to go up and down 12 to 14 stairs? Yes. LOCOMOTION: STAIRS - STEP 2: How much assistance does the patient need from the helper to go a minimum of 12 to 14 stairs? The pat ient goes less than 12 stairs, but at least 4 stairs LOCOMOTION: STAIRS - SCORE: 2-MAX COMPREHENSION: COMPREHENSION - SCORE: 0-UNK EXPRESSION EXPRESSION - SCORE: 0-UNK SOCIAL INTERACTION: SOCIAL INTERACTION - SCORE: 0-UNK PROBLEM SOLVING: PROBLEM SOLVING - SCORE: 0-UNK MEMORY: MEMORY - SCORE: 0-UNK SIGNATURE PANEL: The following modified sections: Transfers: Bed, Chair, Wheelchair - Score, Transfers: Toilet - Score , Locomotion: Walk - Score, Locomotion: Wheelchair - Score, Locomotion: Stairs - Score were [electron ically] signed by García Sierra PT on FriJun 02 2019 16:32:15 T-0500 (Central Daylight Time)
[2019-06-02] MEDS ORDERED: ENSURE HIGH PROTEIN 237 ML CAN PO SCH (20:00)
[2019-06-02] MEDS: GLUCERNA SHAKE 237 ML CAN PO SCH (20:00)
--- NOTE | 2019-06-02 22:29 | R.HP ---
FACILITY: [facility] ENCOUNTER DATE AND TIME: 06/02/2019 22:24 (CDT) MR#: [id number] NAME ARCHANA LEE ADDRESS: [address] [place] [address] [address] [facility] CITY: [place] [address]IP [address] PHONE: DATE OF : 1945 AGE: 73 SSN# [id number] GENDER: Female DEXTERITY Right-handed MARITAL STATUS RACE PRE-HOSPITAL LIVING SETTING 01 - Home (private home/apt. board/care, assisted living, longterm, transitional living) PRE-HOSPITAL LIVING WITH Family/Relatives ENCOUNTER PHYSICIAN: Dr. Philip Elias M.D. REFERRING DOCTOR: efraín Castro DATE OF ADMISSION: 06/01/2019 16:13 (CDT) REFERRING FACILITY [facility] HOME TYPE AND DETAILS: Type of home: single family house # of steps to enter the residence: 4 # of levels in the residence: 1 # of steps within the residence: 0 ADMISSION DIAGNOSIS: Small Bowel Obstruction ONSET DATE: 05/14/2019 PRIMARY DIAGNOSIS-RELATED SURGERIES: Exploratorylaparotomy, lysis of adhesions, repair of incisional hernia, small bowelresection, ileosto my and drainage of intraabdominal and pelvic abscess performed by Dr. Efraín Castro on May 22, 2019 SECONDARY/COMORBID DIAGNOSES (TIERED): - Tier 3 Type 2 diabetes mellitus with diabetic neuropathy, unspecified (E11.40) - N/A Hypertension Chronic Hearing Loss HISTORY OF PRESENT ILLNESS (HPI): Pt. is a 73 yo Right-handed female. On 05/14/2019 she was admitted to [facility] with diagnosis Small Bowel Obstruc tion. Her impairment category is Debility 16 - Debility (16). Pre-morbidly, Pt. was independent/mod-I in Self-Care, Sphincter Control, Transfers Control, Locomotio n, Communication, and Social Cognition; and she had good Sphincter Control. Currently, she has deficits of Self-Care, Transfers Control, Locomotion, Endurance, Balance, and Safe ty Awareness. Pt. is now referred to [facility] for acute in-patient rehabilitation in order to maximize patient's functional independence in activities of daily living, strength, ROM, and mobi lity. Patient has realistic goal of being discharged at assistance level 6-Juan Manuel to reside at Home with Fam sandra/Relatives. Archana Lee is a 73 old female that lives in a single mayra house with 4 steps to enter with her and son. 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 On 05/14/2019, she had nause a, vomiting and abdominal pain and was admitted to [facility] and treated. She is now medically stabl e but in need of 24-hour nursing, doctor supervision and oversite while receiving participate in 3hours of therapy a day/15 hours per week and receive care with an intensive interdisciplinary approach. 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 SOCIAL HISTORY: - Home Living Family/Relatives REVIEW OF SYSTEMS: - Gen No Chills Fatigue No Fever - Eyes No Double Vision No itchiness - ENMT No Difficulty Swallowing - CVS No Chest Discomfort No Chest Pain Fatigue No Weight Gain - Resp No Cough No Shortness of Breath - GI Continent Abdominal Pain No Constipation No Diarrhea - Continent No Kidney Pain No Painful Urination No Urinary Urgency - MSK No Joint Pain No Muscle Cramps Stiffness - Skin No Itching No Rash No Suspicious Lesions - Neuro Coordination Difficulty No Difficulty with Concentration No Memory Loss No Seizures Weakness - Psych No Anxiety No Depression No HIV Exposure No Persistent Infections No Seasonal Allergies - Endo No Cold/Heat Intolerance No Excessive Hunger No Excessive Thirst No Excessive Urination PHYSICAL EXAM - Gen Alert and awake Lying in bed No apparent distress Oriented to: person, time, and place - Skin No breakdown No abnormalities - Eyes No abnormalities - ENMT No abnormalities - Neck No abnormalities - CVS RRR - Chest No abnormalities - Resp Clear to auscultation - Abd Healing incision - GI + bowel sounds Deferred - No abnormalities - Ext Mild bilateral lower extremity edema. - MSK 4+/5 weakness in both lower extremities. - Neuro 4/5 strength left lower extremity. - Psych No abnormalities VITAL SIGNS Temperature: 97.4 F SBP/DBP: 144/76 Pulse: 82 Resp: 17 Vital signs stable, afebrile NURSING: - Shower allowing shower - Lab Results blood Sugar Check ACHS ACTIVITIES OOB only with supervision FUNCTIONAL STATUS: - Self-Care A. Eating Ind sup B. Grooming Ind sup C. Bathing Ind sup D. Dressing - Upper Ind Paulina E. Dressing - Lower Ind Paulina F. Toileting Ind Paulina - Sphincter Control G: Bladder control Ind Ind H: Bowel control Ind Ind - Transfers Control I. Bed/Chair/Wheelchair Ind sup J. Toilet Ind sup K. Tub/Shower Ind ADNO - Locomotion L. Walk/Wheelchair (C) Ind CGA L. Walk/Wheelchair (W) Ind CGA M. Stairs Ind ADNO - Communication N. Comprehension (B) Ind Ind O. Expression (B) Ind Ind - Social Cognition P. Social Interaction Ind Ind Q. Problem Solving Ind Ind R. Memory Ind Ind - Endurance Fair - Balance Fair - Safety Awareness Fair CURRENT FUNC. DEFICITS: Self-Care, Transfers Control, Locomotion, Endurance, Balance, and Safety Awareness MEDICATIONS: - Other See attached MAR (Medication Administration Record) Archana Lee.pdf ASSESSMENT: Pt. is a 73 yo Right-handed female.On 05/14/[address] [facility] with diagnosis Small Bowel Obstruction.Her impairment category is Debility 16 - Debility (16) .Pre-morbidly, Pt. was independent/mod-I in Self-Care, Sphincter Control, Transfers Control, Locomoti on, Communication, and Social Cognition; and she had good Sphincter Control.Currently, she has defici ts of Self-Care, Transfers Control, Locomotion, Endurance, Balance, and Safety Awareness.Pt. is now r eferred to [facility] for acute in-patient rehabilitation in order to maximize patient's functional independence in activities of daily living, strength, ROM, and mobility.- Rehab Goal Patient has realistic goal of being discharged at assistance level 6-Juan Manuel to reside at Home with Fam sandra/Relatives. Archana Lee is a 73 old female that lives in a single mayra house with 4 steps to enter with her and son. 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 On 05/14/2019, she had nause a, vomiting and abdominal pain and was admitted to [facility] and treated. She is now medically stabl e but in need of 24-hour nursing, doctor supervision and oversite while receiving participate in 3hours of therapy a day/15 hours per week and receive care with an intensive interdisciplinary approach.REHAB PLAN: - Physical Therapy Gait dysfunction - to improve, our physical therapists will perform initial evaluation of pt's status upon admission and devise an individualized program for Gait Training, and Wheel Chair mobility Inability to transfer - to improve, our physical therapists will perform initial evaluation of pt's s tatus upon admission and devise an individualized program for Bed mobility Need for home safety evaluation - to improve, our physical therapists will perform initial evaluation of pt's status upon admission and devise an individualized program for Home Evaluation Need in caregiver upon discharge - to improve, our physical therapists will perform initial evaluatio n of pt's status upon admission and devise an individualized program for Caregiver Training New precaution - to improve, our physical therapists will perform initial evaluation of pt's status u ajit admission and devise an individualized program for Patient precaution education Edema - to improve, our physical therapists will perform initial evaluation of pt's status upon admi ssion and devise an individualized program for Elevation Training, and Lymphedema Therapy Poor balance - to improve, our physical therapists will perform initial evaluation of pt's status upo n admission and devise an individualized program for Balance Training Poor endurance - to improve, our physical therapists will perform initial evaluation of pt's status u ajit admission and devise an individualized program for Endurance Training Weakness - to improve, our physical therapists will perform initial evaluation of pt's status upon ad mission and devise an individualized program for Aquatic Therapy, Neuromuscular Reeducation, and Stre ngthening Achieving independence - to improve, our physical therapists will perform initial evaluation of pt's status upon admission and devise an individualized program for Community Reintegration Activities - Occupational Therapy ADL deficits - to improve, our occupation therapists will perform initial evaluation of pt's status u ajit admission and devise an individualized program for Bathing, Bed mobility, Community Reintegration , Cooking, Dressing, Eating, Fine Motor Skills, Grooming, Homemaking, Kitchen Mobility, Laundry, Eli ent Education, Safety Awareness, Splinting - Positioning, Transfers(Toilet, Tub, Shower), and Wheel C hair Management Need for ostomy care nurse - to improve, our occupation therapists will perform initial evaluation of pt's s tatus upon admission and devise an individualized program for Caregiver Training Weakness - to improve, our occupation therapists will perform initial evaluation of pt's status upon admission and devise an individualized program for Aquatic Therapy, Balance, Endurance, UE ROM, and U E strengthening MEDICAL PLAN: - Diet Type Start ADA 1800 - Diet - Liquid Texture Start Regular - Tube Feed Start N/A - Lab Results blood Sugar Check ACHS - Other See attached MAR (Medication Administration Record) Archana Lee.pdf - Diet - Solid Texture Start Regular Start GI SOFT - Shower shower DISCHARGE PLAN: - Estimated Length of Stay (days) 13. - Consensus on plan Discharge plan has been discussed with primary caregiver. [facility] Primary caregiver is in agreement with the plan. - Patient/Family Goals Return home with assistance. - Planned Living Setting Upon Discharge Home, to live with Family/Relatives. Transitional Living. SIGNATURE PANEL: (CDT)
--- NOTE | 2019-06-02 22:30 | PAPE ---
PATIENT: [facility] MR# [id number] REFERRING DOCTOR karina Castro EVALUATION DATE AND TIME 06/02/2019 22:30 (CDT) NAME ARCHANA VANN DATE OF 1945 AGE 73 PHONE SSN# [id number] GENDER female EVALUATING PHYSICIAN Dr. Philip Elias M.D. ADMISSION DIAGNOSIS: Small Bowel Obstruction ONSET DATE 05/14/2019 SECONDARY/COMORBID DIAGNOSES TIERED: - Tier 3 Type 2 diabetes mellitus with diabetic neuropathy, unspecified (E11.40) - N/A Hypertension Chronic Hearing Loss POST-ADMISSION FUNCTIONAL/MEDICAL STATUS: - Bladder Same accident frequency: Ind - No accidents in the past 7 days - Bowel Same accident frequency: Ind - No accidents in the past 7 days - Walking Same score based on distance walked: 0(N/A) - Wheelchair Same score based on distance traveled: 0(N/A) STATUS CHANGE EVALUATION: No change in Functional or Medical Status is identified compared with Pre-Admission screening. PATIENT NEEDS CLOSE MEDICAL SUPERVISION BY A REHABILITATION PHYSICIAN FOR: Bowel and Bladder Management Coordination of Treatment Team Diabetes Management Medical and Co-Morbidity Management Wound Care PATIENT REQUIRES 24X7 REHAB NURSING FOR MEDICAL AND FUNCTIONAL MGT. OF THE FOLLOWING DEFICITS: ADL's Ambulation Bowel and Bladder Management Communication Disease Management Medication Management Patient/Family Education Providing Safe Environment Transfers Pain Management DVT Management PATIENT REQUIRES INTENSIVE, COORDINATED INTERDISCIPLINARY APPROACH TO REHAB: Arranging Home Equipment/Services Discharge Planning Family Intervention/Training Operations Processor/Case Management LIST OF IDENTIFIED AND POTENTIAL PROBLEMS: Alteration in leisure activities Bladder, Incontinence Blood Pressure, Hypertension/hypotension Issues Bowel, Incontinence Diabetes, Hyperglycemia/hypoglycemia Issues Infection, Actual or Potential Mobility Impaired Pain, Alteration in Comfort Self Care Deficit Skin Integrity, Actual or Potential Urinary Tract Infection (UTI), Actual or Potential RISK FOR COMPLICATIONS - Hypertension CVA. Hypotension. IL. TIA. INTERVENTIONS - Hypertension PATIENT COULD BE AT RISK FOR COMPLICATIONS FROM ADVERSE MEDICAL CONDITIONS DUE TO HIS/HER COMORBIDITI ES AND THE RIGORS OF THE INTENSIVE REHABILLITATION PROGRAM. METHODS OR INTERVENTIONS TO AVOID COMPLIC ATIONS INCLUDE: - Bleeding Assess lab values and manage abnormalities. Nursing to teach precautions for anti-coagulation therapy . Wound to be assessed every shift. - Infection Clinical staff to assess and manage the signs and symptoms of infection including fever, redness, war mth, etc. - Urinary Tract Infection - Falls Patient will be evaluated for Fall Precautions and will be placed on Fall Precautions as indicated pe r protocol. - Skin Breakdown Nursing will assess skin daily using assessment tool and will place on Skin Breakdown Precautions as indicated per protocol. - Pain Clinical staff may employ non-medication methods such as massage, distraction, decrease stimulus, etc . as needed. Clinical staff will assess patient's pain level every shift per protocol to assess and e nsure pain management effectiveness. Medications will be given and the pain level re-assessed. PRELIMINARY PLAN OF CARE: - Physical Therapy Patient needs Physical Therapy for a daily minimum of 1.5 hours at least 5 out of 7 days, to improve: Mobility, Strengthening, Transfers, Stretching, ROM, Endurance, Ability to manage stairs, Gait, and Balance. - Rehabilitation Nursing Patient requires 24x7 Rehabilitation Nursing for: Pain Issues, Identifying and preventing risk factor s, Monitoring and reporting current medical conditions, Assisting with ambulation and transfer, Yadira ting with all ADL-s, Teaching patients about disease process and medications, Family teaching, Provid ing safe environment, Bowel and Bladder Issues, Skin Integrity, and Medication Management. Patient needs Operations Processor and/or Case Management for: Discharge Planning, Arranging Home Equipmen t or Services, and Family Interventions. - Dietary and Nutrition Services Patient needs Dietary and Nutrition Services for: Adequate Nutrition, Nutritional Supplements, and Nu tritional Education. - Occupational Therapy Patient needs Occupational Therapy for a daily minimum of 1.5 hours at least 5 out of 7 days, to impr ove Activities of Daily Living, including: Eating, Grooming, Bathing, Dressing, Toileting, Toilet Tra nsfers, Community Reintegration, Higher functional activities, Adaptive Equipment, Splinting, Househo ld Tasks, and Other activities as determined. POTENTIAL FUNCTIONAL GOALS FOR PATIENT TO ACHIEVE BY DISCHARGE: - Safety Precaution Patient will remain free from falls or injury at time of discharge. - Bed Mobility Patient will perform bed mobility at 4-Paulina level of assistance. - Transfers Patient will complete transfers from bed to chair at 4-Paulina level of assistance. - Mobility Patient will ambulate 150 ft with 4-Paulina level of assistance with RW. PATIENT REHAB POTENTIAL Byron VANN is able and expected to receive 3 hours of individualized therapy daily on at least 5 of varghese 7 days Byron EDWAR's prognosis for significant practical improvement within a reasonable period of time appear s Good Expected level of measurable improvement will be of a practical value to Byron VANN's functional capac ity or adaptations to impairments Has a viable Discharge Plan Medically appropriate; condition is sufficiently stable to participate in intensive rehab program DISCHARGE PLAN: - Estimated Length of Stay (days) 13. - Consensus on plan Discharge plan has been discussed with primary caregiver. [facility] Primary caregiver is in agreement with the plan. - Patient/Family Goals Return home with assistance. - Planned Living Setting Upon Discharge Home, to live with Family/Relatives. Transitional Living. CONCLUSION ON REHABILITATION NECESSITY: I have evaluated patient's pre-admission functional status and, comparing it to the patient's post-ad mission functional status now, I conclude that the pre-admission assessment was accurate. Patient's c ondition on admission supports the medical necessity of admission to [facility]. It is safe to proceed with patient's therapy program. SIGNATURE PANEL: (CDT)
[2019-06-03] MEDS: metroNIDAZOLE 500 MG TABLET PO SCH ×3 (00:26→17:25)
[2019-06-03] MEDS: CARVEDILOL 25 MG TAB PO SCH ×2 (05:11→17:25)
[2019-06-03 06:09] LABS: Absolute Lymphocytes (CBC) 0.9 K/uL (0.7-4.9); Basophils % 0.8 % (0-1.3); Hematocrit 32.9 % (36.0-45.0); Lymphocytes % 8.4 % (15.3-44.8); MPV 8.3 fL (7.6-11.3); RBC Red Blood Cell Count 3.93 M/uL (3.86-4.86)
[2019-06-03 06:17] LABS: Potassium 3.8 mmol/L (3.5-5.1)
[2019-06-03] MEDS: HEPARIN 5000 UNIT/ML 1 ML VIAL SQ SCH (07:08)
[2019-06-03] MEDS: PANTOPRAZOLE 40MG TABLET PO SCH (07:30)
[2019-06-03] MEDS: INSULIN -REGULAR HUMAN 50 UNIT/0.5 ML ML SQ SCH ×4 (07:30→21:00)
[2019-06-03] MEDS: MAGNESIUM OXIDE 400 MG TAB PO SCH ×2 (08:00→20:00)
[2019-06-03] MEDS: CIPROFLOXACIN HCL 500 MG TAB PO SCH ×2 (08:00→20:03)
--- NOTE | 2019-06-03 08:39 | FAST ---
SHIFT START DATE/TIME: 06/03/2019 07:00 (CDT) SHIFT END DATE/TIME: 06/03/2019 19:00 (CDT) NAME ARCHANA VANN DATE OF : 1945 DATE OF ADMISSION: 06/01/2019 16:13 (CDT) PHONE: AGE: 73 SSN# [id number] GENDER: Female ENCOUNTER PHYSICIAN: Dr. Philip Elias M.D. ADMISSION DIAGNOSIS: - Debility 16 - Debility (16) Small Bowel Obstruction. EATING: EATING - STEP 1: Does the patient require the assistance of a person or device, or need extra time when eating? No. EATING - SCORE: 7-IND GROOMING: Oral care Wash, rinse, and dry face GROOMING - STEP 1: Does the patient require the assistance of a person or device, or need extra time when grooming? Yes. GROOMING - STEP 2: Does the patient require the assistance of a helper? No. The patient only requires an assistive devic e, OR takes more than reasonable time to groom, OR there is a concern for safety as the patient groom s GROOMING - SCORE: 6-CHRISTINA BATHING: Activity did not occur on this shift BATHING - SCORE: 0-UNK DRESSING - UPPER BODY: Activity did not occur on this shift ARTICLES SCORE Total number of steps: 0 DRESSING - UPPER BODY - SCORE: 0-UNK DRESSING - LOWER BODY: Activity did not occur on this shift ARTICLES SCORE Total number of steps: 0 DRESSING - LOWER BODY - SCORE: 0-UNK TOILETING: TOILETING - STEP 1: Does the patient require the assistance of a person or device, or need extra time with toileting? Yes . TOILETING - STEP 2: Does the patient require the assistance of a helper? No. TOILETING - SCORE: 6-CHRISTINA BLADDER MANAGEMENT: BLADDER MANAGEMENT - STEP 1: Does the patient control the bladder completely and intentionally without equipment or devices or med ications, and is always continent? Yes. BLADDER MANAGEMENT - SCORE: 7-IND BLADDER MANAGEMENT - FREQUENCY OF ACCIDENTS: BLADDER MANAGEMENT(FA) - STEP 1: How many accidents has the patient had during the current shift? 0 BOWEL MANAGEMENT: Colostomy care provided by [facility] (patient performs less than 25% of colostomy care). BOWEL MANAGEMENT - SCORE: 1-DEP BOWEL MANAGEMENT - FREQUENCY OF ACCIDENTS: BOWEL MANAGEMENT(FA) - STEP 1: How many accidents has the patient had during the current shift? 0 TRANSFERS: BED, CHAIR, WHEELCHAIR: TRANSFERS: BED, CHAIR, WHEELCHAIR - STEP 1: Does the patient require assistance of a person or device, or need extra time with bed, chair, or whe elchair transfers? Yes. TRANSFERS: BED, CHAIR, WHEELCHAIR - STEP 2: Does the patient require the assistance of a helper? Yes. TRANSFERS: BED, CHAIR, WHEELCHAIR - STEP 3: How much assistance does the patient require from the helper? Steadying/guiding assistance TRANSFERS: BED, CHAIR, WHEELCHAIR - SCORE: 4-MIN TRANSFERS: TOILET: TRANSFERS: TOILET - STEP 1: Does the patient require the assistance of a person or device, or need extra time with toilet transfe rs? Yes. TRANSFERS: TOILET - STEP 2: Does the patient require the assistance of a helper? Yes. TRANSFERS: TOILET - STEP 3: How much assistance does the patient require from the helper? Patient performs half or more of the tr ansferring tasks TRANSFERS: TOILET - STEP 4: Does the patient need only incidental help such as contact guard or steadying during toilet transfer? Yes. TRANSFERS: TOILET - SCORE: 4-MIN TRANSFERS: SHOWER: Activity did not occur on this shift TRANSFERS: SHOWER - SCORE: 0-UNK TRANSFERS: TUB: Activity did not occur on this shift TRANSFERS: TUB - SCORE: 0-UNK LOCOMOTION: WALK: Activity did not occur on this shift LOCOMOTION: WALK - SCORE: 0-UNK LOCOMOTION: WHEELCHAIR: Activity did not occur on this shift LOCOMOTION: WHEELCHAIR - SCORE: 0-UNK COMPREHENSION: COMPREHENSION - SCORE: 0-UNK EXPRESSION EXPRESSION - SCORE: 0-UNK SOCIAL INTERACTION: SOCIAL INTERACTION - SCORE: 0-UNK PROBLEM SOLVING: PROBLEM SOLVING - SCORE: 0-UNK MEMORY: MEMORY - SCORE: 0-UNK SIGNATURE PANEL: The following modified sections: Eating - Score, Grooming - Score, Bathing - Score, Dressing - Upper Body - Score, Dressing - Lower Body - Score, Toileting - Score, Bladder Management - Score, Bowel Man agement - Score, Transfers: Bed, Chair, Wheelchair - Score, Transfers: Toilet - Score, Transfers: Ania wer - Score, Transfers: Tub - Score, Locomotion: Walk - Score, Locomotion: Wheelchair - Score, Compre hension - Score, Expression - Score, Social Interaction - Score, Problem Solving - Score, Memory - Sc ore were [electronically] signed by Micaela Santamaria CNA on FriJun 03 2019 08:39:15 GMT-0500 (Centra l Daylight Time)
[2019-06-03] MEDS: DULOXETINE 20 MG CAP PO SCH (09:01)
[2019-06-03] MEDS: FLUCONAZOLE 100 MG TAB PO SCH (09:01)
[2019-06-03] MEDS: ACETAMINOPHEN 500 MG TAB PO PRN ×2 (09:02→20:03)
[2019-06-03] MEDS: METFORMIN HCL 500 MG TAB PO SCH ×2 (09:02→17:25)
[2019-06-03] MEDS: GLUCERNA SHAKE 237 ML CAN PO SCH ×3 (09:03→20:05)
[2019-06-03] MEDS: SPIRONOLACTONE 25 MG TABLET PO SCH (09:03)
[2019-06-03] MEDS: glipiZIDE 5 MG TAB PO SCH (09:03)
--- NOTE | 2019-06-03 09:51 | PN ---
Date of Progress Note: 06/03/2019 Subjective: Patient is awake and alert, tolerating diet, ambulating, working with physical therapy a nd rehab. Vital signs are stable, afebrile. Laboratory data reviewed. White count has come down to 11,000. There is still a slight left shift and platelets are still little elevated. Abdomen is rene ign. Wound is clean, dry, and intact. Assessment: Status was exploratory laparotomy, small bowel resection, drainage of pelvic abscess. Recommendations: Continue Cipro and Flagyl as ordered, antifungal as ordered. Physical therapy. Re habilitation. Patient is clinically stable. We will probably discontinue the xochitl next week. Thaddeus emerson is doing well. /MODL Voice ID: [id number] Report ID: [id number]
[2019-06-03] MEDS: AMLODIPINE 10 MG TAB PO SCH (10:09)
--- NOTE | 2019-06-03 15:56 | FAST ---
ENCOUNTER DATE AND TIME: 06/03/2019 08:00 (CDT) NAME ARCHANA VANN DATE OF : 1945 DATE OF ADMISSION: 06/01/2019 16:13 (CDT) PHONE: AGE: 73 SSN# [id number] GENDER: Female ENCOUNTER PHYSICIAN: Dr. Philip Elias M.D. ADMISSION DIAGNOSIS: - Debility 16 - Debility (16) Small Bowel Obstruction. EATING: Activity did not occur on this shift EATING - SCORE: 0-UNK GROOMING: Activity did not occur on this shift GROOMING - SCORE: 0-UNK BATHING: Activity did not occur on this shift BATHING - SCORE: 0-UNK DRESSING - UPPER BODY: Activity did not occur on this shift Patient is not dressing in public clothing ARTICLES SCORE Total number of steps: 0 DRESSING - UPPER BODY - SCORE: 0-UNK DRESSING - LOWER BODY: Activity did not occur on this shift Patient is not dressing in public clothing ARTICLES SCORE Total number of steps: 0 DRESSING - LOWER BODY - SCORE: 0-UNK TOILETING: Activity did not occur on this shift TOILETING - SCORE: 0-UNK BLADDER MANAGEMENT: Activity did not occur on this shift BLADDER MANAGEMENT - SCORE: 7-IND BOWEL MANAGEMENT: Activity did not occur on this shift BOWEL MANAGEMENT - SCORE: 7-IND TRANSFERS: BED, CHAIR, WHEELCHAIR: TRANSFERS: BED, CHAIR, WHEELCHAIR - STEP 1: Does the patient require assistance of a person or device, or need extra time with bed, chair, or whe elchair transfers? Yes. TRANSFERS: BED, CHAIR, WHEELCHAIR - STEP 2: Does the patient require the assistance of a helper? No. Patient only requires an assistive device fo r bed, chair, wheelchair transfers such as a sliding board, grab bar, or brace, OR s/he takes more th an reasonable time, OR there is a safety concern when s/he performs the transfers TRANSFERS: BED, CHAIR, WHEELCHAIR - SCORE: 6-CHRISTINA TRANSFERS: TOILET: Activity did not occur on this shift TRANSFERS: TOILET - SCORE: 0-UNK TRANSFERS: SHOWER: Activity did not occur on this shift TRANSFERS: SHOWER - SCORE: 0-UNK TRANSFERS: TUB: Activity did not occur on this shift TRANSFERS: TUB - SCORE: 0-UNK LOCOMOTION: WALK: LOCOMOTION: WALK - STEP 1: Does the patient need help from a person or device, or need extra time to walk 150 feet? Yes. LOCOMOTION: WALK - STEP 2: How much assistance does the patient require to walk a minimum of 150 feet? Only supervision, cuing, or coaxing LOCOMOTION: WALK - SCORE: 5-SUP LOCOMOTION: WHEELCHAIR: LOCOMOTION: WHEELCHAIR - STEP 1: Does the patient need help to go 150 feet in a wheelchair? Yes. LOCOMOTION: WHEELCHAIR - STEP 2: How much assistance does the patient need from the helper? Only supervision, cuing, or coaxing LOCOMOTION: WHEELCHAIR - SCORE: 5-SUP LOCOMOTION: STAIRS: LOCOMOTION: STAIRS - STEP 1: Does the patient need help to go up and down 12 to 14 stairs? Yes. LOCOMOTION: STAIRS - STEP 2: How much assistance does the patient need from the helper to go a minimum of 12 to 14 stairs? Only horn pervision, cuing, or coaxing LOCOMOTION: STAIRS - SCORE: 5-SUP COMPREHENSION: COMPREHENSION - SCORE: 0-UNK EXPRESSION EXPRESSION - SCORE: 0-UNK SOCIAL INTERACTION: SOCIAL INTERACTION - SCORE: 0-UNK PROBLEM SOLVING: PROBLEM SOLVING - SCORE: 0-UNK MEMORY: MEMORY - SCORE: 0-UNK SIGNATURE PANEL: The following modified sections: Transfers: Bed, Chair, Wheelchair - Score, Transfers: Toilet - Score , Locomotion: Walk - Score, Locomotion: Wheelchair - Score, Locomotion: Stairs - Score were [electron angelica] signed by Galindo Stewart PTA on FriJun 03 2019 15:56:12 T-0500 (Central Daylight Time)
[2019-06-03] MEDS: NYSTATIN 500,000 UNIT/5 ML UDC PO SCH (20:05)
[2019-06-03] MEDS: PROMOD 30 ML DOSE PO SCH (20:05)
--- NOTE | 2019-06-03 20:18 | CON ---
Date of Consultation: 06/03/2019 Reason For Consultation: Elevated BUN and creatinine, electrolyte imbalance. History Of Present Illness: This is a pleasant 73-year-old female with significant past medical hist ory of diabetes complicated with neuropathy, hysterectomy, colostomy. The patient came to the hospit al with nausea, vomiting, severe hyponatremia. Her hyponatremia and acute kidney injury were depleti onal secondary to prerenal. After hydration, all her symptoms had been improved. Patient started im proving. Patient was transferred to rehab. We are being consulted to continue care. Patient's bloo d pressure has been stable. Patient has still poor intake. Past Medical History: 1.Diabetes. 2.Hypertension. 3.Hyperlipidemia. 4.Benign gastric tumor removal. 5.Colostomy. Past Surgical History: Cholecystectomy, basal cell carcinoma removal, hysterectomy, benign gastric t umor removal. Family History: Positive for diabetes and hypertension. Social History: Lives with her . Denies smoking. Denies drinking. Denies drug abuse. Review of Systems: Head and Neck: No red eye. No ear pain. GI: Has a colostomy. : No polyuria. No dysuria. No hematuria. 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 Respiratory: No shortness of breath. Cardiovascular: No chest pain. Endocrine: No polydipsia. Skin: No rash. Neuro: Generalized weakness. Musculoskeletal: Fatigue. Home Medications: Metronidazole, glipizide, spironolactone, metformin, ciprofloxacin, amlodipine, ca rvedilol. Current Medications In Rehab: Carvedilol 25 b.i.d., amlodipine, ciprofloxacin, glipizide, metformin, pantoprazole, spironolactone. Physical Examination: Vital Signs: When I saw the patient, blood pressure of 129/73, pulse of 83. Chest: Clear to auscultation. Heart: S1, S2. Regular. Abdomen: Soft. Colostomy. Extremities: No edema. Laboratory Data: WBC 11.3, H and H 10.9/32.9, platelets 589. Sodium of 131, potassium 3.8, bicarb 2 8, BUN 17, creatinine 0.8, calcium 8.1. Assessment And Plan: 1.Hyponatremia, depletional. Recovered, resolved. 2.Hypokalemia. Continue spironolactone. 3.Hypertension, controlled, optimal. Continue current medication. 4.Deconditioning. Continue PT/OT. KITTY/MODL Voice ID: [id number] Report ID: [id number]
[2019-06-03] MEDS: MELATONIN 3 MG TABLET PO PRN (21:00)
[2019-06-04] MEDS: metroNIDAZOLE 500 MG TABLET PO SCH ×3 (00:30→17:13)
--- NOTE | 2019-06-04 01:08 | FAST ---
SHIFT START DATE/TIME: 06/03/2019 19:00 (CDT) SHIFT END DATE/TIME: 06/04/2019 07:00 (CDT) NAME ARCHANA VANN DATE OF : 1945 DATE OF ADMISSION: 06/01/2019 16:13 (CDT) PHONE: AGE: 73 SSN# [id number] GENDER: Female ENCOUNTER PHYSICIAN: Dr. Philip Elias M.D. ADMISSION DIAGNOSIS: - Debility 16 - Debility (16) Small Bowel Obstruction. EATING: Activity did not occur on this shift EATING - SCORE: 0-UNK GROOMING: Wash, rinse, and dry hands GROOMING - STEP 1: Does the patient require the assistance of a person or device, or need extra time when grooming? Yes. GROOMING - STEP 2: Does the patient require the assistance of a helper? Yes. GROOMING - STEP 3: How much assistance does the patient require from the helper? Only prior equipment preparation/set up from the helper GROOMING - SCORE: 5-SUP BATHING: Activity did not occur on this shift BATHING - SCORE: 0-UNK DRESSING - UPPER BODY: Patient is not dressing in public clothing ARTICLES SCORE Total number of steps: 0 DRESSING - UPPER BODY - SCORE: 0-UNK DRESSING - LOWER BODY: Patient is not dressing in public clothing ARTICLES SCORE Total number of steps: 0 DRESSING - LOWER BODY - SCORE: 0-UNK TOILETING: TOILETING - STEP 1: Does the patient require the assistance of a person or device, or need extra time with toileting? Yes . TOILETING - STEP 2: Does the patient require the assistance of a helper? Yes. TOILETING - STEP 3: How much assistance does the patient require from the helper? Hands-on assistance from the helper TOILETING - STEP 4: Of the 3 tasks: 1) Adjusting clothing prior to use, 2) Cleansing of perineal area, 3) Adjusting clot adelina after use; How many tasks does the patient perform WITHOUT assistance of the helper? Three tasks with steadying assistance from the helper TOILETING - SCORE: 4-MIN BLADDER MANAGEMENT: BLADDER MANAGEMENT - STEP 1: Does the patient control the bladder completely and intentionally without equipment or devices or med ications, and is always continent? No. BLADDER MANAGEMENT - STEP 2: Does the patient require the assistance of a helper? Yes. BLADDER MANAGEMENT - STEP 3: How much assistance does the patient require from the helper? Only set-up of equipment - such as plac ing it within reach of the patient or emptying a device - to maintain either satisfactory voiding pat tern or managing an external device, such as an absorbent pad, ileal device, or catheter BLADDER MANAGEMENT - SCORE: 5-SUP BOWEL MANAGEMENT: Colostomy care provided by Dawson (patient performs less than 25% of colostomy care). BOWEL MANAGEMENT - SCORE: 1-DEP TRANSFERS: BED, CHAIR, WHEELCHAIR: TRANSFERS: BED, CHAIR, WHEELCHAIR - STEP 1: Does the patient require assistance of a person or device, or need extra time with bed, chair, or whe elchair transfers? Yes. TRANSFERS: BED, CHAIR, WHEELCHAIR - STEP 2: Does the patient require the assistance of a helper? Yes. TRANSFERS: BED, CHAIR, WHEELCHAIR - STEP 3: How much assistance does the patient require from the helper? Lifting of the legs TRANSFERS: BED, CHAIR, WHEELCHAIR - STEP 4: How many legs does the patient require the helper to lift? both legs TRANSFERS: BED, CHAIR, WHEELCHAIR - SCORE: 3-MOD TRANSFERS: TOILET: TRANSFERS: TOILET - STEP 1: Does the patient require the assistance of a person or device, or need extra time with toilet transfe rs? Yes. TRANSFERS: TOILET - STEP 2: Does the patient require the assistance of a helper? Yes. TRANSFERS: TOILET - STEP 3: How much assistance does the patient require from the helper? Patient performs half or more of the tr ansferring tasks TRANSFERS: TOILET - STEP 4: Does the patient need only incidental help such as contact guard or steadying during toilet transfer? Yes. TRANSFERS: TOILET - SCORE: 4-MIN TRANSFERS: SHOWER: Activity did not occur on this shift TRANSFERS: SHOWER - SCORE: 0-UNK TRANSFERS: TUB: Activity did not occur on this shift TRANSFERS: TUB - SCORE: 0-UNK LOCOMOTION: WALK: Activity did not occur on this shift LOCOMOTION: WALK - SCORE: 0-UNK LOCOMOTION: WHEELCHAIR: Activity did not occur on this shift LOCOMOTION: WHEELCHAIR - SCORE: 0-UNK COMPREHENSION: COMPREHENSION: TYPE: Both COMPREHENSION - STEP 1: Does the patient require help from a person or device, or need extra time to understand complex and a bstract ideas (such as current events, finances, discharge planning, medical issues, relationships, e tc)? No. COMPREHENSION - STEP 2: Does the patient need extra time, require an assistive device (such as glasses for visual comprehensi on or a hearing aid for auditory comprehension) or does s/he have mild difficulty understanding compl ex and abstract information? Yes. COMPREHENSION - SCORE: 6-CHRISTINA EXPRESSION EXPRESSION: TYPE: Both EXPRESSION - STEP 1: Does the patient require help from a person or device, or need extra time expressing complex and abst ract ideas (such as current events, finances, discharge planning, medical issues, relationships, etc) ? No. EXPRESSION - STEP 2: Does the patient need extra time, require an assistive device (such as augmentive communication syste m or a communication board), OR does s/he have mild difficulty expressing complex and abstract ideas (including mild dysarthria or mild word-find problems)? Yes. EXPRESSION - SCORE: 6-CHRISTINA SOCIAL INTERACTION: SOCIAL INTERACTION - STEP 1: Does the patient require a helper to interact with others in social and therapeutic situations? No. SOCIAL INTERACTION - STEP 2: Does the patient need extra time in social situations, OR does s/he interact with staff, other patien ts, and family members ONLY in structured environments, OR does s/he require medication for social in teraction? Yes, patient requires medication for social interaction SOCIAL INTERACTION - SCORE: 6-CHRISTINA PROBLEM SOLVING: PROBLEM SOLVING - STEP 1: Does the patient need help from a person or device, or need extra time to solve complex problems such as managing a checking account or confronting interpersonal problems? Yes. PROBLEM SOLVING - STEP 2: Does the patient solve basic routine problems half or more of the time? Yes. PROBLEM SOLVING - STEP 3: How often does the patient need help to solve basic routine problems? 10%-24% of the time PROBLEM SOLVING - SCORE: 4-MIN MEMORY: MEMORY - STEP 1: Does the patient need help from a person or device, or need extra time to remember frequently encount ered people, daily routines, and executing requests? No. MEMORY - STEP 2: Does the patient have slight difficulty recognizing frequently encountered people, daily routines, or executing requests without the need for repetition or using self-initiated or environmental cues to remember? Yes. MEMORY - SCORE: 6-CHRISTINA SIGNATURE PANEL: The following modified sections: Eating - Score, Grooming - Score, Dressing - Upper Body - Score, Lalito ssing - Lower Body - Score, Toileting - Score, Bladder Management - Score, Bowel Management - Score, Transfers: Bed, Chair, Wheelchair - Score, Transfers: Toilet - Score, Transfers: Shower - Score, Randle sfers: Tub - Score, Locomotion: Walk - Score, Locomotion: Wheelchair - Score, Comprehension - Score, Expression - Score, Social Interaction - Score, Problem Solving - Score, Memory - Score were [electro nically] signed by Genia Moon CNA on FriJun 04 2019 01:07:50 GMT-0500 (Central Daylight Time)
[2019-06-04] MEDS: CARVEDILOL 25 MG TAB PO SCH ×2 (05:12→17:13)
[2019-06-04] MEDS: ACETAMINOPHEN 500 MG TAB PO PRN (07:10)
[2019-06-04] MEDS: NYSTATIN 500,000 UNIT/5 ML UDC PO SCH ×2 (07:10→20:39)
[2019-06-04] MEDS: PANTOPRAZOLE 40MG TABLET PO SCH (07:10)
[2019-06-04] MEDS: INSULIN -REGULAR HUMAN 50 UNIT/0.5 ML ML SQ SCH ×4 (07:30→21:00)
[2019-06-04] MEDS: HEPARIN 5000 UNIT/ML 1 ML VIAL SQ SCH (07:32)
[2019-06-04] MEDS: PROMOD 30 ML DOSE PO SCH ×2 (08:00→20:59)
[2019-06-04] MEDS: GLUCERNA SHAKE 237 ML CAN PO SCH ×2 (08:00→20:00)
[2019-06-04] MEDS: FLUCONAZOLE 100 MG TAB PO SCH (08:30)
[2019-06-04] MEDS: DULOXETINE 20 MG CAP PO SCH (08:31)
[2019-06-04] MEDS: METFORMIN HCL 500 MG TAB PO SCH ×2 (08:31→17:12)
[2019-06-04] MEDS: SPIRONOLACTONE 25 MG TABLET PO SCH (08:32)
[2019-06-04] MEDS: glipiZIDE 5 MG TAB PO SCH ×2 (08:32→17:12)
[2019-06-04] MEDS: AMLODIPINE 10 MG TAB PO SCH (08:33)
[2019-06-04] MEDS: CIPROFLOXACIN HCL 500 MG TAB PO SCH ×2 (08:33→20:40)
[2019-06-04] MEDS: MAGNESIUM OXIDE 400 MG TAB PO SCH ×2 (08:34→20:00)
--- NOTE | 2019-06-04 09:34 | P.RH.PN ---
Estimated Length of Stay: 12 Expected Discharge Date: 06/12/19 Discharge Disposition Plan: Home Family Support: Yes Fpc Goal: Mobility, Transfers, Self Care Vital Signs: Last Vital Signs Temp 96.9 F 06/04/19 07:34 Pulse 73 06/04/19 08:33 Resp 16 06/04/19 07:34 BP 132/71 06/04/19 08:33 Pulse Ox 98 06/04/19 07:34 Laboratory: Laboratory Last Values WBC 11.3 K/uL (4.3-10.9) H D 06/03/19 05:44 RBC 3.93 M/uL (3.86-4.86) 06/03/19 05:44 Hgb 10.9 g/dL (12.0-15.0) L 06/03/19 05:44 Hct 32.9 % (36.0-45.0) L 06/03/19 05:44 MCV 83.7 fL (80-100) 06/03/19 05:44 MCH 27.8 pg (27.0-35.0) 06/03/19 05:44 MCHC 33.2 g/dL (32.0-36.0) 06/03/19 05:44 RDW 15.5 % (12.1-15.2) H 06/03/19 05:44 Plt Count 589 K/uL (152-406) H 06/03/19 05:44 MPV 8.3 fL (7.6-11.3) 06/03/19 05:44 Plt Distribution Width Cancelled 06/02/19 Unknown Absolute Nucleated RBC Cancelled 06/02/19 Unknown Neutrophils % 84.5 % (41.7-73.7) H 06/03/19 05:44 Lymphocytes % 8.4 % (15.3-44.8) L 06/03/19 05:44 Monocytes % 5.5 % (3.3-12.3) 06/03/19 05:44 Eosinophils % 0.8 % (0-4.4) 06/03/19 05:44 Basophils % 0.8 % (0-1.3) 06/03/19 05:44 Nucleated RBC % Cancelled 06/02/19 Unknown Absolute Neutrophils 9.6 K/uL (1.8-8.0) H 06/03/19 05:44 Absolute Lymphocytes 0.9 K/uL (0.7-4.9) 06/03/19 05:44 Absolute Monocytes 0.6 K/uL (0.1-1.3) 06/03/19 05:44 Absolute Eosinophils 0.1 K/uL (0-0.5) 06/03/19 05:44 Absolute Basophils 0.1 K/uL (0-0.5) 06/03/19 05:44 Diff Path Review Cancelled 06/02/19 Unknown Anisocytosis 1+ 06/02/19 05:45 Morphology Comment Noted (NOT SEEN) 06/02/19 05:45 Sodium 131 mmol/L (136-145) L 06/03/19 05:44 Potassium 3.8 mmol/L (3.5-5.1) 06/03/19 05:44 Chloride 95 mmol/L (98-107) L 06/03/19 05:44 Carbon Dioxide 28 mmol/L (21-32) 06/03/19 05:44 BUN 17 mg/dL (7-18) 06/03/19 05:44 Creatinine 0.88 mg/dL (0.55-1.3) 06/03/19 05:44 Estimated GFR 63 mL/min (=/>90) L 06/03/19 05:44 Glucose 162 mg/dL (74-106) H 06/03/19 05:44 POC Glucose 184 mg/dl (65-120) H 06/04/19 07:29 Calcium 8.1 mg/dL (8.5-10.1) L 06/03/19 05:44 Magnesium 1.7 mg/dL (1.8-2.4) L 06/02/19 05:54 Albumin 2.2 g/dL (3.4-5.0) L 06/02/19 05:54 Prealbumin 16.4 mg/dL (20-40) L 06/02/19 05:54 Urine Color Yellow 06/01/19 19:00 Urine Appearance Clear 06/01/19 19:00 Urine pH 7.0 (5.0-7.0) 06/01/19 19:00 Ur Specific [place] <=1.005 (1.005-1.030) 06/01/19 19:00 Urine Ketones Negative (NEG) 06/01/19 19:00 Urine Blood Negative (NEG) 06/01/19 19:00 Urine Nitrite Negative (NEG) 06/01/19 19:00 Urine Bilirubin Negative (NEG) 06/01/19 19:00 Urine Urobilinogen 0.2 mg/dL (0.2-1.0) 06/01/19 19:00 Ur Leukocyte Esterase Negative (NEG) 06/01/19 19:00 Urine RBC None seen /HPF (NONE SEEN) 06/01/19 19:00 Urine WBC <5 /HPF (<5) 06/01/19 19:00 Ur Squamous Epith Cells 5-10 /HPF (NONE SEEN) H 06/01/19 19:00 Urine Bacteria <20 /HPF (<20) 06/01/19 19:00 Urine Culture Reflexed Not needed 06/01/19 19:00 Urine Glucose Negative (NEG) 06/01/19 19:00 Urine Total Protein Negative (NEG) 06/01/19 19:00 Weight: 129 lb Wound Present: Yes Closed Surgical Incision Present: Yes Negative Pressure Wound Therapy Present: No Physician Update: Her labs are reviewed and glucose 153 to 187. Glipizide will be increased to 5 mg bid. Na is mildly low will allow more salt in her diet and use glucerna. She started Cymbalta 20 mg daily for depression. She is doing well with ADLs. She gets fatigued quickly. She is minimum to contact assistance due to safety and balance issues. She is standby assistance walking 250' with walker. Medical Issues: Metronidazole 500mg Q8H PO. Fluconazole 400mg Daily PO. Ciprofloxacin 500mg BID PO Pain Issues: Tramadol 50mg Q6H PRN PO Functional Improvement: Patient has met all short-term goals at this time and is progressing well toward long-term goals. Patient continues to present w/ lethargy. Functional Improvement Occupational Therapy: Cont to increase pt's overall UB strength/endurance due to weakness. Cont to increase pt's static standing balance for adl tasks, cont to educate on safety awareness and energy conservation techniques. cont to educate and train pt on A/E for adl tasks. Summary: Patient's care plan and intermediate goals have been reviewed and revised as necessary. Please see the Rehabilitation Signature page for all necessary signatures.
--- NOTE | 2019-06-04 15:25 | FAST ---
ENCOUNTER DATE AND TIME: 06/04/2019 08:00 (CDT) NAME ARCHANA VANN DATE OF : 1945 DATE OF ADMISSION: 06/01/2019 16:13 (CDT) PHONE: AGE: 73 SSN# [id number] GENDER: Female ENCOUNTER PHYSICIAN: Dr. Philip Elias M.D. ADMISSION DIAGNOSIS: - Debility 16 - Debility (16) Small Bowel Obstruction. EATING: Activity did not occur on this shift EATING - SCORE: 0-UNK GROOMING: Activity did not occur on this shift GROOMING - SCORE: 0-UNK BATHING: Activity did not occur on this shift BATHING - SCORE: 0-UNK DRESSING - UPPER BODY: Activity did not occur on this shift Patient is not dressing in public clothing ARTICLES SCORE Total number of steps: 0 DRESSING - UPPER BODY - SCORE: 0-UNK DRESSING - LOWER BODY: Activity did not occur on this shift Patient is not dressing in public clothing ARTICLES SCORE Total number of steps: 0 DRESSING - LOWER BODY - SCORE: 0-UNK TOILETING: Activity did not occur on this shift TOILETING - SCORE: 0-UNK BLADDER MANAGEMENT: Activity did not occur on this shift BLADDER MANAGEMENT - SCORE: 7-IND BOWEL MANAGEMENT: Activity did not occur on this shift BOWEL MANAGEMENT - SCORE: 7-IND TRANSFERS: BED, CHAIR, WHEELCHAIR: TRANSFERS: BED, CHAIR, WHEELCHAIR - STEP 1: Does the patient require assistance of a person or device, or need extra time with bed, chair, or whe elchair transfers? Yes. TRANSFERS: BED, CHAIR, WHEELCHAIR - STEP 2: Does the patient require the assistance of a helper? No. Patient only requires an assistive device fo r bed, chair, wheelchair transfers such as a sliding board, grab bar, or brace, OR s/he takes more th an reasonable time, OR there is a safety concern when s/he performs the transfers TRANSFERS: BED, CHAIR, WHEELCHAIR - SCORE: 6-CHRISTINA TRANSFERS: TOILET: Activity did not occur on this shift TRANSFERS: TOILET - SCORE: 0-UNK TRANSFERS: SHOWER: Activity did not occur on this shift TRANSFERS: SHOWER - SCORE: 0-UNK TRANSFERS: TUB: Activity did not occur on this shift TRANSFERS: TUB - SCORE: 0-UNK LOCOMOTION: WALK: LOCOMOTION: WALK - STEP 1: Does the patient need help from a person or device, or need extra time to walk 150 feet? No. LOCOMOTION: WALK - STEP 2: Does the patient need an assistive device (such as an orthosis, prosthesis, crutches, or walker) to g o 150 feet, OR does s/he take more than reasonable time, OR is there a concern for safety? Yes, the p atient needs an assistive device LOCOMOTION: WALK - SCORE: 6-CHRISTINA LOCOMOTION: WHEELCHAIR: LOCOMOTION: WHEELCHAIR - STEP 1: Does the patient need help to go 150 feet in a wheelchair? No. LOCOMOTION: WHEELCHAIR - SCORE: 6-CHRISTINA LOCOMOTION: STAIRS: LOCOMOTION: STAIRS - STEP 1: Does the patient need help to go up and down 12 to 14 stairs? Yes. LOCOMOTION: STAIRS - STEP 2: How much assistance does the patient need from the helper to go a minimum of 12 to 14 stairs? Only horn pervision, cuing, or coaxing LOCOMOTION: STAIRS - SCORE: 5-SUP COMPREHENSION: COMPREHENSION - SCORE: 0-UNK EXPRESSION EXPRESSION - SCORE: 0-UNK SOCIAL INTERACTION: SOCIAL INTERACTION - SCORE: 0-UNK PROBLEM SOLVING: PROBLEM SOLVING - SCORE: 0-UNK MEMORY: MEMORY - SCORE: 0-UNK SIGNATURE PANEL: The following modified sections: Transfers: Bed, Chair, Wheelchair - Score, Transfers: Toilet - Score , Locomotion: Walk - Score, Locomotion: Wheelchair - Score, Locomotion: Stairs - Score were [electron ically] signed by Galindo Stewart PTA on FriJun 04 2019 15:25:08 T-0500 (Central Daylight Time)
--- NOTE | 2019-06-04 15:43 | FAST ---
ENCOUNTER DATE AND TIME: 06/04/2019 08:00 (CDT) NAME ARCHANA VANN DATE OF : 1945 DATE OF ADMISSION: 06/01/2019 16:13 (CDT) PHONE: AGE: 73 SSN# [id number] GENDER: Female ENCOUNTER PHYSICIAN: Dr. Philip Elias M.D. ADMISSION DIAGNOSIS: - Debility 16 - Debility (16) Small Bowel Obstruction. EATING: Activity did not occur on this shift EATING - SCORE: 0-UNK GROOMING: Comb/brush hair Wash, rinse, and dry face Wash, rinse, and dry hands GROOMING - STEP 1: Does the patient require the assistance of a person or device, or need extra time when grooming? No. GROOMING - SCORE: 7-IND BATHING: Abdomen Buttocks Chest Left arm Left lower leg and foot Left upper leg Perineal area Right arm Right lower leg and foot Right upper leg BATHING - STEP 1: Does the patient require the assistance of a person or device, or need extra time when bathing? Yes. BATHING - STEP 2: Does the patient require the assistance of a helper? Yes. BATHING - STEP 3: How much assistance does the patient require from the helper? Only supervision, cuing, coaxing, instr uctions, encouragement BATHING - SCORE: 5-SUP DRESSING - UPPER BODY: T-shirt/pullover shirt (four steps) ARTICLES SCORE Total number of steps: 4 DRESSING - UPPER BODY - STEP 1: Does the patient require help from a person or device, or need extra time when dressing above the [address]? Yes. DRESSING - UPPER BODY - STEP 2: Does the patient require the assistance of a helper? Yes. DRESSING - UPPER BODY - STEP 3: Does the helper touch the patient while dressing? No. DRESSING - UPPER BODY - SCORE: 5-SUP DRESSING - LOWER BODY: Sock - Left foot (one step) Sock - Right foot (one step) Underwear (three steps) ARTICLES SCORE Total number of steps: 5 DRESSING - LOWER BODY - STEP 1: Does the patient require help from a person or device, or need extra time when dressing below the [address]? Yes. DRESSING - LOWER BODY - STEP 2: Does the patient require the assistance of a helper? Yes. DRESSING - LOWER BODY - STEP 3: Does the helper touch the patient while dressing? Yes. DRESSING - LOWER BODY - STEP 4: How many of the total steps does the patient complete on his/her own? 5 DRESSING - LOWER BODY - SCORE: 4-MIN TOILETING: TOILETING - STEP 1: Does the patient require the assistance of a person or device, or need extra time with toileting? Yes . TOILETING - STEP 2: Does the patient require the assistance of a helper? Yes. TOILETING - STEP 3: How much assistance does the patient require from the helper? Hands-on assistance from the helper TOILETING - STEP 4: Of the 3 tasks: 1) Adjusting clothing prior to use, 2) Cleansing of perineal area, 3) Adjusting clot adelina after use; How many tasks does the patient perform WITHOUT assistance of the helper? Three tasks with steadying assistance from the helper TOILETING - SCORE: 4-MIN BLADDER MANAGEMENT: Activity did not occur on this shift BLADDER MANAGEMENT - SCORE: 7-IND BOWEL MANAGEMENT: Activity did not occur on this shift BOWEL MANAGEMENT - SCORE: 7-IND TRANSFERS: BED, CHAIR, WHEELCHAIR: Activity did not occur on this shift TRANSFERS: BED, CHAIR, WHEELCHAIR - SCORE: 0-UNK TRANSFERS: TOILET: TRANSFERS: TOILET - STEP 1: Does the patient require the assistance of a person or device, or need extra time with toilet transfe rs? Yes. TRANSFERS: TOILET - STEP 2: Does the patient require the assistance of a helper? Yes. TRANSFERS: TOILET - STEP 3: How much assistance does the patient require from the helper? Patient performs half or more of the tr ansferring tasks TRANSFERS: TOILET - STEP 4: Does the patient need only incidental help such as contact guard or steadying during toilet transfer? Yes. TRANSFERS: TOILET - SCORE: 4-MIN TRANSFERS: SHOWER: Activity did not occur on this shift TRANSFERS: SHOWER - SCORE: 0-UNK TRANSFERS: TUB: TRANSFERS: TUB - STEP 1: Does the patient require the assistance of a person or device, or need extra time with tub transfers? Yes. TRANSFERS: TUB - STEP 2: Does the patient require the assistance of a helper? Yes. TRANSFERS: TUB - STEP 3: How much assistance does the patient require from the helper? Incidental help such as contact guardin g or steadying, OR help to lift one leg into the tub TRANSFERS: TUB - SCORE: 4-MIN LOCOMOTION: WALK: Activity did not occur on this shift LOCOMOTION: WALK - SCORE: 0-UNK LOCOMOTION: WHEELCHAIR: Activity did not occur on this shift LOCOMOTION: WHEELCHAIR - SCORE: 0-UNK LOCOMOTION: STAIRS: Activity did not occur on this shift LOCOMOTION: STAIRS - SCORE: 0-UNK COMPREHENSION: COMPREHENSION: TYPE: Auditory COMPREHENSION - STEP 1: Does the patient require help from a person or device, or need extra time to understand complex and a bstract ideas (such as current events, finances, discharge planning, medical issues, relationships, e tc)? No. COMPREHENSION - STEP 2: Does the patient need extra time, require an assistive device (such as glasses for visual comprehensi on or a hearing aid for auditory comprehension) or does s/he have mild difficulty understanding compl ex and abstract information? Yes. COMPREHENSION - SCORE: 6-CHRISTINA EXPRESSION EXPRESSION: TYPE: Non-Vocal EXPRESSION - STEP 1: Does the patient require help from a person or device, or need extra time expressing complex and abst ract ideas (such as current events, finances, discharge planning, medical issues, relationships, etc) ? No. EXPRESSION - STEP 2: Does the patient need extra time, require an assistive device (such as augmentive communication syste m or a communication board), OR does s/he have mild difficulty expressing complex and abstract ideas (including mild dysarthria or mild word-find problems)? No. EXPRESSION - SCORE: 7-IND SOCIAL INTERACTION: SOCIAL INTERACTION - STEP 1: Does the patient require a helper to interact with others in social and therapeutic situations? No. SOCIAL INTERACTION - STEP 2: Does the patient need extra time in social situations, OR does s/he interact with staff, other patien ts, and family members ONLY in structured environments, OR does s/he require medication for social in teraction? No. SOCIAL INTERACTION - SCORE: 7-IND PROBLEM SOLVING: PROBLEM SOLVING - STEP 1: Does the patient need help from a person or device, or need extra time to solve complex problems such as managing a checking account or confronting interpersonal problems? No. PROBLEM SOLVING - STEP 2: Does the patient require extra time to make decisions or solve problems, OR does s/he have slight dif ficulty reading, initiating, or self-correcting in unfamiliar situations? Yes, patient needs extra ti me. PROBLEM SOLVING - SCORE: 6-CHRISTINA MEMORY: MEMORY - STEP 1: Does the patient need help from a person or device, or need extra time to remember frequently encount ered people, daily routines, and executing requests? No. MEMORY - STEP 2: Does the patient have slight difficulty recognizing frequently encountered people, daily routines, or executing requests without the need for repetition or using self-initiated or environmental cues to remember? Yes. MEMORY - SCORE: 6-CHRISTINA SIGNATURE PANEL: The following modified sections: Eating - Score, Grooming - Score, Bathing - Score, Dressing - Upper Body - Score, Dressing - Lower Body - Score, Toileting - Score, Transfers: Bed, Chair, Wheelchair - S core, Transfers: Toilet - Score, Transfers: Shower - Score, Transfers: Tub - Score, Comprehension - S core, Expression - Score, Social Interaction - Score, Problem Solving - Score, Memory - Score were [e lectronically] signed by ABENA Lyons on FriJun 04 2019 15:42:14 T-0500 ([facility])
[2019-06-05] MEDS: metroNIDAZOLE 500 MG TABLET PO SCH ×3 (00:35→17:06)
--- NOTE | 2019-06-05 02:05 | FAST ---
SHIFT START DATE/TIME: 06/04/2019 19:00 (CDT) SHIFT END DATE/TIME: 06/05/2019 07:00 (CDT) NAME ARCHANA VANN DATE OF : 1945 DATE OF ADMISSION: 06/01/2019 16:13 (CDT) PHONE: AGE: 73 N# [id number] GENDER: Female ENCOUNTER PHYSICIAN: Dr. Philip Elias M.D. ADMISSION DIAGNOSIS: - Debility 16 - Debility (16) Small Bowel Obstruction. EATING: Activity did not occur on this shift EATING - SCORE: 0-UNK GROOMING: Oral care Wash, rinse, and dry face Wash, rinse, and dry hands GROOMING - STEP 1: Does the patient require the assistance of a person or device, or need extra time when grooming? Yes. GROOMING - STEP 2: Does the patient require the assistance of a helper? Yes. GROOMING - STEP 3: How much assistance does the patient require from the helper? Cuing, coaxing, instructions, or encour agement for completion of grooming GROOMING - SCORE: 5-SUP BATHING: Activity did not occur on this shift BATHING - SCORE: 0-UNK DRESSING - UPPER BODY: Patient is not dressing in public clothing ARTICLES SCORE Total number of steps: 0 DRESSING - UPPER BODY - SCORE: 0-UNK DRESSING - LOWER BODY: Patient is not dressing in public clothing ARTICLES SCORE Total number of steps: 0 DRESSING - LOWER BODY - SCORE: 0-UNK TOILETING: TOILETING - STEP 1: Does the patient require the assistance of a person or device, or need extra time with toileting? Yes . TOILETING - STEP 2: Does the patient require the assistance of a helper? Yes. TOILETING - STEP 3: How much assistance does the patient require from the helper? Hands-on assistance from the helper TOILETING - STEP 4: Of the 3 tasks: 1) Adjusting clothing prior to use, 2) Cleansing of perineal area, 3) Adjusting clot adelina after use; How many tasks does the patient perform WITHOUT assistance of the helper? Three tasks with steadying assistance from the helper TOILETING - SCORE: 4-MIN BLADDER MANAGEMENT: BLADDER MANAGEMENT - STEP 1: Does the patient control the bladder completely and intentionally without equipment or devices or med ications, and is always continent? No. BLADDER MANAGEMENT - STEP 2: Does the patient require the assistance of a helper? Yes. BLADDER MANAGEMENT - STEP 3: How much assistance does the patient require from the helper? Only set-up of equipment - such as plac ing it within reach of the patient or emptying a device - to maintain either satisfactory voiding pat tern or managing an external device, such as an absorbent pad, ileal device, or catheter BLADDER MANAGEMENT - SCORE: 5-SUP BOWEL MANAGEMENT: Colostomy care provided by [facility] (patient performs less than 25% of colostomy care). BOWEL MANAGEMENT - SCORE: 1-DEP TRANSFERS: BED, CHAIR, WHEELCHAIR: TRANSFERS: BED, CHAIR, WHEELCHAIR - STEP 1: Does the patient require assistance of a person or device, or need extra time with bed, chair, or whe elchair transfers? Yes. TRANSFERS: BED, CHAIR, WHEELCHAIR - STEP 2: Does the patient require the assistance of a helper? Yes. TRANSFERS: BED, CHAIR, WHEELCHAIR - STEP 3: How much assistance does the patient require from the helper? Lifting of the legs TRANSFERS: BED, CHAIR, WHEELCHAIR - STEP 4: How many legs does the patient require the helper to lift? both legs TRANSFERS: BED, CHAIR, WHEELCHAIR - SCORE: 3-MOD TRANSFERS: TOILET: TRANSFERS: TOILET - STEP 1: Does the patient require the assistance of a person or device, or need extra time with toilet transfe rs? Yes. TRANSFERS: TOILET - STEP 2: Does the patient require the assistance of a helper? Yes. TRANSFERS: TOILET - STEP 3: How much assistance does the patient require from the helper? Patient performs half or more of the tr ansferring tasks TRANSFERS: TOILET - STEP 4: Does the patient need only incidental help such as contact guard or steadying during toilet transfer? Yes. TRANSFERS: TOILET - SCORE: 4-MIN TRANSFERS: SHOWER: Activity did not occur on this shift TRANSFERS: SHOWER - SCORE: 0-UNK TRANSFERS: TUB: Activity did not occur on this shift TRANSFERS: TUB - SCORE: 0-UNK LOCOMOTION: WALK: Activity did not occur on this shift LOCOMOTION: WALK - SCORE: 0-UNK LOCOMOTION: WHEELCHAIR: Activity did not occur on this shift LOCOMOTION: WHEELCHAIR - SCORE: 0-UNK COMPREHENSION: COMPREHENSION: TYPE: Both COMPREHENSION - STEP 1: Does the patient require help from a person or device, or need extra time to understand complex and a bstract ideas (such as current events, finances, discharge planning, medical issues, relationships, e tc)? No. COMPREHENSION - STEP 2: Does the patient need extra time, require an assistive device (such as glasses for visual comprehensi on or a hearing aid for auditory comprehension) or does s/he have mild difficulty understanding compl ex and abstract information? Yes. COMPREHENSION - SCORE: 6-CHRISTINA EXPRESSION EXPRESSION: TYPE: Both EXPRESSION - STEP 1: Does the patient require help from a person or device, or need extra time expressing complex and abst ract ideas (such as current events, finances, discharge planning, medical issues, relationships, etc) ? No. EXPRESSION - STEP 2: Does the patient need extra time, require an assistive device (such as augmentive communication syste m or a communication board), OR does s/he have mild difficulty expressing complex and abstract ideas (including mild dysarthria or mild word-find problems)? Yes. EXPRESSION - SCORE: 6-CHRISTINA SOCIAL INTERACTION: SOCIAL INTERACTION - STEP 1: Does the patient require a helper to interact with others in social and therapeutic situations? No. SOCIAL INTERACTION - STEP 2: Does the patient need extra time in social situations, OR does s/he interact with staff, other patien ts, and family members ONLY in structured environments, OR does s/he require medication for social in teraction? Yes, patient needs extra time SOCIAL INTERACTION - SCORE: 6-CHRISTINA PROBLEM SOLVING: PROBLEM SOLVING - STEP 1: Does the patient need help from a person or device, or need extra time to solve complex problems such as managing a checking account or confronting interpersonal problems? Yes. PROBLEM SOLVING - STEP 2: Does the patient solve basic routine problems half or more of the time? Yes. PROBLEM SOLVING - STEP 3: How often does the patient need help to solve basic routine problems? 10%-24% of the time PROBLEM SOLVING - SCORE: 4-MIN MEMORY: MEMORY - STEP 1: Does the patient need help from a person or device, or need extra time to remember frequently encount ered people, daily routines, and executing requests? No. MEMORY - STEP 2: Does the patient have slight difficulty recognizing frequently encountered people, daily routines, or executing requests without the need for repetition or using self-initiated or environmental cues to remember? Yes. MEMORY - SCORE: 6-CHRISTINA
[2019-06-05] MEDS: CARVEDILOL 25 MG TAB PO SCH ×2 (05:07→17:06)
[2019-06-05] MEDS: INSULIN -REGULAR HUMAN 50 UNIT/0.5 ML ML SQ SCH ×4 (07:42→20:16)
[2019-06-05] MEDS: HEPARIN 5000 UNIT/ML 1 ML VIAL SQ SCH (07:43)
[2019-06-05] MEDS: NYSTATIN 500,000 UNIT/5 ML UDC PO SCH ×2 (08:03→20:14)
[2019-06-05] MEDS: CIPROFLOXACIN HCL 500 MG TAB PO SCH ×2 (08:03→20:14)
[2019-06-05] MEDS: AMLODIPINE 10 MG TAB PO SCH (08:04)
[2019-06-05] MEDS: PANTOPRAZOLE 40MG TABLET PO SCH (08:04)
[2019-06-05] MEDS: METFORMIN HCL 500 MG TAB PO SCH ×2 (08:04→17:06)
[2019-06-05] MEDS: DULOXETINE 20 MG CAP PO SCH (08:04)
[2019-06-05] MEDS: glipiZIDE 5 MG TAB PO SCH ×2 (08:05→17:06)
[2019-06-05] MEDS: FLUCONAZOLE 100 MG TAB PO SCH (08:05)
[2019-06-05] MEDS: MAGNESIUM OXIDE 400 MG TAB PO SCH ×2 (08:05→20:13)
[2019-06-05] MEDS: PROMOD 30 ML DOSE PO SCH ×2 (08:06→20:14)
[2019-06-05] MEDS: ACETAMINOPHEN 500 MG TAB PO PRN (08:06)
[2019-06-05] MEDS: SPIRONOLACTONE 25 MG TABLET PO SCH (09:00)
[2019-06-05] MEDS: GLUCERNA SHAKE 237 ML CAN PO SCH ×2 (09:01→20:15)
--- NOTE | 2019-06-05 09:20 | FAST ---
SHIFT START DATE/TIME: 06/05/2019 07:00 (CDT) SHIFT END DATE/TIME: 06/05/2019 19:00 (CDT) NAME ARCHANA VANN DATE OF : 1945 DATE OF ADMISSION: 06/01/2019 16:13 (CDT) PHONE: AGE: 73 SSN# [id number] GENDER: Female ENCOUNTER PHYSICIAN: Dr. Philip Elias M.D. ADMISSION DIAGNOSIS: - Debility 16 - Debility (16) Small Bowel Obstruction. EATING: EATING - STEP 1: Does the patient require the assistance of a person or device, or need extra time when eating? Yes. EATING - STEP 2: Does the patient require the assistance of a helper? No, patient only requires an assistive device, O R s/he takes more than reasonable time to eat, OR there is a safety concern, OR s/he requires modifie d food consistency EATING - SCORE: 6-CHRISTINA GROOMING: Activity did not occur on this shift GROOMING - SCORE: 0-UNK BATHING: Activity did not occur on this shift BATHING - SCORE: 0-UNK DRESSING - UPPER BODY: Activity did not occur on this shift ARTICLES SCORE Total number of steps: 0 DRESSING - UPPER BODY - SCORE: 0-UNK DRESSING - LOWER BODY: Activity did not occur on this shift ARTICLES SCORE Total number of steps: 0 DRESSING - LOWER BODY - SCORE: 0-UNK TOILETING: TOILETING - STEP 1: Does the patient require the assistance of a person or device, or need extra time with toileting? Yes . TOILETING - STEP 2: Does the patient require the assistance of a helper? Yes. TOILETING - STEP 3: How much assistance does the patient require from the helper? Hands-on assistance from the helper TOILETING - STEP 4: Of the 3 tasks: 1) Adjusting clothing prior to use, 2) Cleansing of perineal area, 3) Adjusting clot adelina after use; How many tasks does the patient perform WITHOUT assistance of the helper? Two tasks TOILETING - SCORE: 3-MOD BLADDER MANAGEMENT: BLADDER MANAGEMENT - STEP 1: Does the patient control the bladder completely and intentionally without equipment or devices or med ications, and is always continent? No. BLADDER MANAGEMENT - STEP 2: Does the patient require the assistance of a helper? No, patient requires and independently uses an a ssistive device, such as a urinal, bedpan, bedside commode, catheter, absorbent pad, or collecting de vice BLADDER MANAGEMENT - SCORE: 6-CHRISTINA BOWEL MANAGEMENT: Colostomy care provided by [facility] (patient performs less than 25% of colostomy care). BOWEL MANAGEMENT - SCORE: 1-DEP TRANSFERS: BED, CHAIR, WHEELCHAIR: TRANSFERS: BED, CHAIR, WHEELCHAIR - STEP 1: Does the patient require assistance of a person or device, or need extra time with bed, chair, or whe elchair transfers? Yes. TRANSFERS: BED, CHAIR, WHEELCHAIR - STEP 2: Does the patient require the assistance of a helper? Yes. TRANSFERS: BED, CHAIR, WHEELCHAIR - STEP 3: How much assistance does the patient require from the helper? Steadying/guiding assistance TRANSFERS: BED, CHAIR, WHEELCHAIR - SCORE: 4-MIN TRANSFERS: TOILET: TRANSFERS: TOILET - STEP 1: Does the patient require the assistance of a person or device, or need extra time with toilet transfe rs? Yes. TRANSFERS: TOILET - STEP 2: Does the patient require the assistance of a helper? Yes. TRANSFERS: TOILET - STEP 3: How much assistance does the patient require from the helper? Patient performs half or more of the tr ansferring tasks TRANSFERS: TOILET - STEP 4: Does the patient need only incidental help such as contact guard or steadying during toilet transfer? Yes. TRANSFERS: TOILET - SCORE: 4-MIN TRANSFERS: SHOWER: Activity did not occur on this shift TRANSFERS: SHOWER - SCORE: 0-UNK TRANSFERS: TUB: Activity did not occur on this shift TRANSFERS: TUB - SCORE: 0-UNK LOCOMOTION: WALK: Activity did not occur on this shift LOCOMOTION: WALK - SCORE: 0-UNK LOCOMOTION: WHEELCHAIR: Activity did not occur on this shift LOCOMOTION: WHEELCHAIR - SCORE: 0-UNK COMPREHENSION: COMPREHENSION: TYPE: Both COMPREHENSION - STEP 1: Does the patient require help from a person or device, or need extra time to understand complex and a bstract ideas (such as current events, finances, discharge planning, medical issues, relationships, e tc)? No. COMPREHENSION - STEP 2: Does the patient need extra time, require an assistive device (such as glasses for visual comprehensi on or a hearing aid for auditory comprehension) or does s/he have mild difficulty understanding compl ex and abstract information? Yes. COMPREHENSION - SCORE: 6-CHRISTINA EXPRESSION EXPRESSION: TYPE: Both EXPRESSION - STEP 1: Does the patient require help from a person or device, or need extra time expressing complex and abst ract ideas (such as current events, finances, discharge planning, medical issues, relationships, etc) ? No. EXPRESSION - STEP 2: Does the patient need extra time, require an assistive device (such as augmentive communication syste m or a communication board), OR does s/he have mild difficulty expressing complex and abstract ideas (including mild dysarthria or mild word-find problems)? Yes. EXPRESSION - SCORE: 6-CHRISTINA SOCIAL INTERACTION: SOCIAL INTERACTION - STEP 1: Does the patient require a helper to interact with others in social and therapeutic situations? No. SOCIAL INTERACTION - STEP 2: Does the patient need extra time in social situations, OR does s/he interact with staff, other patien ts, and family members ONLY in structured environments, OR does s/he require medication for social in teraction? Yes, patient needs extra time SOCIAL INTERACTION - SCORE: 6-CHRISTINA PROBLEM SOLVING: PROBLEM SOLVING - STEP 1: Does the patient need help from a person or device, or need extra time to solve complex problems such as managing a checking account or confronting interpersonal problems? No. PROBLEM SOLVING - STEP 2: Does the patient require extra time to make decisions or solve problems, OR does s/he have slight dif ficulty reading, initiating, or self-correcting in unfamiliar situations? Yes, patient needs extra ti me. PROBLEM SOLVING - SCORE: 6-CHRISTINA MEMORY: MEMORY - STEP 1: Does the patient need help from a person or device, or need extra time to remember frequently encount ered people, daily routines, and executing requests? Yes. MEMORY - STEP 2: How often does the patient need help to remember frequently encountered people, daily routines, and e xecuting requests? Less than 10% of the time MEMORY - SCORE: 5-SUP SIGNATURE PANEL: The following modified sections: Eating - Score, Grooming - Score, Bathing - Score, Dressing - Upper Body - Score, Dressing - Lower Body - Score, Toileting - Score, Bladder Management - Score, Bowel Man agement - Score, Transfers: Bed, Chair, Wheelchair - Score, Transfers: Toilet - Score, Transfers: Ania wer - Score, Transfers: Tub - Score, Locomotion: Walk - Score, Locomotion: Wheelchair - Score, Compre hension - Score, Expression - Score, Social Interaction - Score, Problem Solving - Score, Memory - Sc ore were [electronically] signed by Mauri Melara on Sat Jun 05 2019 09:19:40 GMT-0500 (Central Daylight Time)
--- NOTE | 2019-06-05 12:50 | FAST ---
ENCOUNTER DATE AND TIME: 06/05/2019 08:00 (CDT) NAME ARCHANA VANN DATE OF : 1945 DATE OF ADMISSION: 06/01/2019 16:13 (CDT) PHONE: AGE: 73 SSN# [id number] GENDER: Female ENCOUNTER PHYSICIAN: Dr. Philip Elias M.D. ADMISSION DIAGNOSIS: - Debility 16 - Debility (16) Small Bowel Obstruction. EATING: Activity did not occur on this shift EATING - SCORE: 0-UNK GROOMING: Comb/brush hair GROOMING - STEP 1: Does the patient require the assistance of a person or device, or need extra time when grooming? No. GROOMING - SCORE: 7-IND BATHING: Activity did not occur on this shift BATHING - SCORE: 0-UNK DRESSING - UPPER BODY: Sweater (four steps) ARTICLES SCORE Total number of steps: 4 DRESSING - UPPER BODY - STEP 1: Does the patient require help from a person or device, or need extra time when dressing above the emily st? No. DRESSING - UPPER BODY - SCORE: 7-IND DRESSING - LOWER BODY: Activity did not occur on this shift ARTICLES SCORE Total number of steps: 0 DRESSING - LOWER BODY - SCORE: 0-UNK TOILETING: Activity did not occur on this shift TOILETING - SCORE: 0-UNK BLADDER MANAGEMENT: Activity did not occur on this shift BLADDER MANAGEMENT - SCORE: 7-IND BOWEL MANAGEMENT: Activity did not occur on this shift BOWEL MANAGEMENT - SCORE: 7-IND TRANSFERS: BED, CHAIR, WHEELCHAIR: Activity did not occur on this shift TRANSFERS: BED, CHAIR, WHEELCHAIR - SCORE: 0-UNK TRANSFERS: TOILET: Activity did not occur on this shift TRANSFERS: TOILET - SCORE: 0-UNK TRANSFERS: SHOWER: Activity did not occur on this shift TRANSFERS: SHOWER - SCORE: 0-UNK TRANSFERS: TUB: Activity did not occur on this shift TRANSFERS: TUB - SCORE: 0-UNK LOCOMOTION: WALK: Activity did not occur on this shift LOCOMOTION: WALK - SCORE: 0-UNK LOCOMOTION: WHEELCHAIR: Activity did not occur on this shift LOCOMOTION: WHEELCHAIR - SCORE: 0-UNK LOCOMOTION: STAIRS: Activity did not occur on this shift LOCOMOTION: STAIRS - SCORE: 0-UNK COMPREHENSION: COMPREHENSION: TYPE: Both COMPREHENSION - STEP 1: Does the patient require help from a person or device, or need extra time to understand complex and a bstract ideas (such as current events, finances, discharge planning, medical issues, relationships, e tc)? No. COMPREHENSION - STEP 2: Does the patient need extra time, require an assistive device (such as glasses for visual comprehensi on or a hearing aid for auditory comprehension) or does s/he have mild difficulty understanding compl ex and abstract information? Yes. COMPREHENSION - SCORE: 6-CHRISTINA EXPRESSION EXPRESSION: TYPE: Vocal EXPRESSION - STEP 1: Does the patient require help from a person or device, or need extra time expressing complex and abst ract ideas (such as current events, finances, discharge planning, medical issues, relationships, etc) ? No. EXPRESSION - STEP 2: Does the patient need extra time, require an assistive device (such as augmentive communication syste m or a communication board), OR does s/he have mild difficulty expressing complex and abstract ideas (including mild dysarthria or mild word-find problems)? No. EXPRESSION - SCORE: 7-IND SOCIAL INTERACTION: SOCIAL INTERACTION - STEP 1: Does the patient require a helper to interact with others in social and therapeutic situations? No. SOCIAL INTERACTION - STEP 2: Does the patient need extra time in social situations, OR does s/he interact with staff, other patien ts, and family members ONLY in structured environments, OR does s/he require medication for social in teraction? No. SOCIAL INTERACTION - SCORE: 7-IND PROBLEM SOLVING: PROBLEM SOLVING - STEP 1: Does the patient need help from a person or device, or need extra time to solve complex problems such as managing a checking account or confronting interpersonal problems? No. PROBLEM SOLVING - STEP 2: Does the patient require extra time to make decisions or solve problems, OR does s/he have slight dif ficulty reading, initiating, or self-correcting in unfamiliar situations? Yes, patient needs extra ti me. PROBLEM SOLVING - SCORE: 6-CHRISTINA MEMORY: MEMORY - STEP 1: Does the patient need help from a person or device, or need extra time to remember frequently encount ered people, daily routines, and executing requests? No. MEMORY - STEP 2: Does the patient have slight difficulty recognizing frequently encountered people, daily routines, or executing requests without the need for repetition or using self-initiated or environmental cues to remember? Yes. MEMORY - SCORE: 6-CHRISTINA SIGNATURE PANEL: The following modified sections: Eating - Score, Grooming - Score, Bathing - Score, Dressing - Upper Body - Score, Dressing - Lower Body - Score, Toileting - Score, Transfers: Bed, Chair, Wheelchair - S core, Transfers: Toilet - Score, Transfers: Shower - Score, Transfers: Tub - Score, Comprehension - S core, Expression - Score, Social Interaction - Score, Problem Solving - Score, Memory - Score were [e lectronically] signed by Arin Dickerson OT on Sat Jun 05 2019 12:49:32 GMT-0500 (Central Daylight Ti me)
[2019-06-06] MEDS: metroNIDAZOLE 500 MG TABLET PO SCH ×3 (01:04→16:53)
--- NOTE | 2019-06-06 04:32 | PN ---
Date of Progress Note: 06/05/2019 Chief Complaint: Acute kidney injury. History Of Present Illness: Patient is recovering from acute kidney injury. Patient has nonoliguric urine output. She is a 73-year-old female with significant past medical history of diabetes mellitu s complicated by neuropathy. Patient developed severe acute kidney injury. On presentation to the [facility], she was found to have severe hyponatremia and received IV fluids. She did not require dialy sis. The acute kidney injury has improved in response to IV fluids. Hyponatremia was adequately eddie ated. Patient is in recovery phase. Review of Systems: Denies fever or chills. Physical Examination: Lungs: Clear to auscultation bilaterally. Heart: S1, S2. Abdomen: Soft, benign, nontender. Extremities: No edema. Impression And Plan: 1.Hyponatremia, depletional, recovered, resolved. Patient will continue adequate hydration. Monito r electrolytes. 2.Hypokalemia. Plan is to advance p.o. replacement as needed. 3.Monitor magnesium and phosphorus level. 4.Hypertension. Blood pressure controlled. 5.Deconditioning. Continue physical therapy. EB/MODL Voice ID: [id number] Report ID: [id number]
[2019-06-06] MEDS: CARVEDILOL 25 MG TAB PO SCH ×2 (05:25→16:53)
[2019-06-06] MEDS: INSULIN -REGULAR HUMAN 50 UNIT/0.5 ML ML SQ SCH ×5 (07:24→20:17)
[2019-06-06] MEDS: PANTOPRAZOLE 40MG TABLET PO SCH (07:24)
[2019-06-06] MEDS: NYSTATIN 500,000 UNIT/5 ML UDC PO SCH ×2 (07:31→20:17)
[2019-06-06] MEDS: FLUCONAZOLE 100 MG TAB PO SCH (07:43)
[2019-06-06] MEDS: METFORMIN HCL 500 MG TAB PO SCH ×2 (07:44→16:52)
[2019-06-06] MEDS: AMLODIPINE 10 MG TAB PO SCH (07:44)
[2019-06-06] MEDS: DULOXETINE 20 MG CAP PO SCH (07:44)
[2019-06-06] MEDS: MAGNESIUM OXIDE 400 MG TAB PO SCH ×2 (07:44→20:17)
[2019-06-06] MEDS: SPIRONOLACTONE 25 MG TABLET PO SCH (07:45)
[2019-06-06] MEDS: CIPROFLOXACIN HCL 500 MG TAB PO SCH ×2 (07:45→20:17)
[2019-06-06] MEDS: glipiZIDE 5 MG TAB PO SCH ×2 (07:45→16:53)
[2019-06-06] MEDS: PROMOD 30 ML DOSE PO SCH ×2 (07:46→20:16)
[2019-06-06] MEDS: GLUCERNA SHAKE 237 ML CAN PO SCH ×2 (07:47→20:16)
[2019-06-06] MEDS: HEPARIN 5000 UNIT/ML 1 ML VIAL SQ SCH (08:02)
--- NOTE | 2019-06-06 12:44 | FAST ---
SHIFT START DATE/TIME: 06/06/2019 07:00 (CDT) SHIFT END DATE/TIME: 06/06/2019 19:00 (CDT) NAME ARCHANA VANN DATE OF : 1945 DATE OF ADMISSION: 06/01/2019 16:13 (CDT) PHONE: AGE: 73 N# [id number] GENDER: Female ENCOUNTER PHYSICIAN: Dr. Philip Elias M.D. ADMISSION DIAGNOSIS: - Debility 16 - Debility (16) Small Bowel Obstruction. EATING: EATING - STEP 1: Does the patient require the assistance of a person or device, or need extra time when eating? Yes. EATING - STEP 2: Does the patient require the assistance of a helper? No, patient only requires an assistive device, O R s/he takes more than reasonable time to eat, OR there is a safety concern, OR s/he requires modifie d food consistency EATING - SCORE: 6-CHRISTINA GROOMING: Comb/brush hair Oral care Wash, rinse, and dry face Wash, rinse, and dry hands GROOMING - STEP 1: Does the patient require the assistance of a person or device, or need extra time when grooming? Yes. GROOMING - STEP 2: Does the patient require the assistance of a helper? Yes. GROOMING - STEP 3: How much assistance does the patient require from the helper? Cuing, coaxing, instructions, or encour agement for completion of grooming GROOMING - SCORE: 5-SUP BATHING: Activity did not occur on this shift BATHING - SCORE: 0-UNK DRESSING - UPPER BODY: Activity did not occur on this shift ARTICLES SCORE Total number of steps: 0 DRESSING - UPPER BODY - SCORE: 0-UNK DRESSING - LOWER BODY: Activity did not occur on this shift ARTICLES SCORE Total number of steps: 0 DRESSING - LOWER BODY - SCORE: 0-UNK TOILETING: TOILETING - STEP 1: Does the patient require the assistance of a person or device, or need extra time with toileting? Yes . TOILETING - STEP 2: Does the patient require the assistance of a helper? Yes. TOILETING - STEP 3: How much assistance does the patient require from the helper? Hands-on assistance from the helper TOILETING - STEP 4: Of the 3 tasks: 1) Adjusting clothing prior to use, 2) Cleansing of perineal area, 3) Adjusting clot adelina after use; How many tasks does the patient perform WITHOUT assistance of the helper? Three tasks with steadying assistance from the helper TOILETING - SCORE: 4-MIN BLADDER MANAGEMENT: BLADDER MANAGEMENT - STEP 1: Does the patient control the bladder completely and intentionally without equipment or devices or med ications, and is always continent? No. BLADDER MANAGEMENT - STEP 2: Does the patient require the assistance of a helper? No, patient requires and independently uses an a ssistive device, such as a urinal, bedpan, bedside commode, catheter, absorbent pad, or collecting de vice BLADDER MANAGEMENT - SCORE: 6-CHRISTINA BOWEL MANAGEMENT: Colostomy care provided by [facility] (patient performs less than 25% of colostomy care). BOWEL MANAGEMENT - SCORE: 1-DEP TRANSFERS: BED, CHAIR, WHEELCHAIR: TRANSFERS: BED, CHAIR, WHEELCHAIR - STEP 1: Does the patient require assistance of a person or device, or need extra time with bed, chair, or whe elchair transfers? Yes. TRANSFERS: BED, CHAIR, WHEELCHAIR - STEP 2: Does the patient require the assistance of a helper? Yes. TRANSFERS: BED, CHAIR, WHEELCHAIR - STEP 3: How much assistance does the patient require from the helper? Steadying/guiding assistance TRANSFERS: BED, CHAIR, WHEELCHAIR - SCORE: 4-MIN TRANSFERS: TOILET: TRANSFERS: TOILET - STEP 1: Does the patient require the assistance of a person or device, or need extra time with toilet transfe rs? Yes. TRANSFERS: TOILET - STEP 2: Does the patient require the assistance of a helper? Yes. TRANSFERS: TOILET - STEP 3: How much assistance does the patient require from the helper? Patient performs half or more of the tr ansferring tasks TRANSFERS: TOILET - STEP 4: Does the patient need only incidental help such as contact guard or steadying during toilet transfer? Yes. TRANSFERS: TOILET - SCORE: 4-MIN TRANSFERS: SHOWER: Activity did not occur on this shift TRANSFERS: SHOWER - SCORE: 0-UNK TRANSFERS: TUB: Activity did not occur on this shift TRANSFERS: TUB - SCORE: 0-UNK LOCOMOTION: WALK: Activity did not occur on this shift LOCOMOTION: WALK - SCORE: 0-UNK LOCOMOTION: WHEELCHAIR: Activity did not occur on this shift LOCOMOTION: WHEELCHAIR - SCORE: 0-UNK COMPREHENSION: COMPREHENSION: TYPE: Both COMPREHENSION - STEP 1: Does the patient require help from a person or device, or need extra time to understand complex and a bstract ideas (such as current events, finances, discharge planning, medical issues, relationships, e tc)? No. COMPREHENSION - STEP 2: Does the patient need extra time, require an assistive device (such as glasses for visual comprehensi on or a hearing aid for auditory comprehension) or does s/he have mild difficulty understanding compl ex and abstract information? Yes. COMPREHENSION - SCORE: 6-CHRISTINA EXPRESSION EXPRESSION: TYPE: Both EXPRESSION - STEP 1: Does the patient require help from a person or device, or need extra time expressing complex and abst ract ideas (such as current events, finances, discharge planning, medical issues, relationships, etc) ? No. EXPRESSION - STEP 2: Does the patient need extra time, require an assistive device (such as augmentive communication syste m or a communication board), OR does s/he have mild difficulty expressing complex and abstract ideas (including mild dysarthria or mild word-find problems)? Yes. EXPRESSION - SCORE: 6-CHRISTINA SOCIAL INTERACTION: SOCIAL INTERACTION - STEP 1: Does the patient require a helper to interact with others in social and therapeutic situations? No. SOCIAL INTERACTION - STEP 2: Does the patient need extra time in social situations, OR does s/he interact with staff, other patien ts, and family members ONLY in structured environments, OR does s/he require medication for social in teraction? Yes, patient needs extra time SOCIAL INTERACTION - SCORE: 6-CHRISTINA PROBLEM SOLVING: PROBLEM SOLVING - STEP 1: Does the patient need help from a person or device, or need extra time to solve complex problems such as managing a checking account or confronting interpersonal problems? No. PROBLEM SOLVING - STEP 2: Does the patient require extra time to make decisions or solve problems, OR does s/he have slight dif ficulty reading, initiating, or self-correcting in unfamiliar situations? Yes, patient needs extra ti me. PROBLEM SOLVING - SCORE: 6-CHRISTINA MEMORY: MEMORY - STEP 1: Does the patient need help from a person or device, or need extra time to remember frequently encount ered people, daily routines, and executing requests? No. MEMORY - STEP 2: Does the patient have slight difficulty recognizing frequently encountered people, daily routines, or executing requests without the need for repetition or using self-initiated or environmental cues to remember? Yes. MEMORY - SCORE: 6-CHRISTINA SIGNATURE PANEL: The following modified sections: Eating - Score, Grooming - Score, Bathing - Score, Dressing - Upper Body - Score, Dressing - Lower Body - Score, Toileting - Score, Bladder Management - Score, Bowel Man agement - Score, Transfers: Bed, Chair, Wheelchair - Score, Transfers: Toilet - Score, Transfers: Ania wer - Score, Transfers: Tub - Score, Locomotion: Walk - Score, Locomotion: Wheelchair - Score, Compre hension - Score, Expression - Score, Social Interaction - Score, Problem Solving - Score, Memory - Sc ore were [electronically] signed by Mauri Melara on Sun Jun 06 2019 12:44:04 GMT-0500 (Central Daylight Time)
[2019-06-06] MEDS: SODIUM CHLORIDE 1 GM TAB PO SCH ×2 (15:53→20:18)
--- NOTE | 2019-06-07 00:21 | PN ---
Date of Progress Note: 06/06/2019 Chief Complaint: Acute kidney injury in recovery phase. The patient is recovering from acute kidney injury. She has nonoliguric urine output. History Of Present Illness: She is 73-year-old female with significant past medical history of diabetes mellitus complicated by neuropathy. The patient developed acute kidney injury secondary to prerenal azotemia, nonoliguric ATN and due to sepsis on presentation to the hospital, she was found to have severe hyponatremia and received IV fluids. Sodium level gradually improved. The patient did not require dialysis for acute kidney injury. Recently, she developed fluid overload. She was started on spironolactone. Blood work today shows worsening of the hyponatremia, borderline hyperkalemia. The patient was taken off spironolactone and started on sodium chloride tablets with fluid restriction. The patient has asymptomatic chronic hyponatremia. Review of Systems: Denies fever or chills. Physical Examination: Lungs: Clear to auscultation bilaterally. Heart: S1, S2. No pericardial friction rub. Abdomen: Soft, benign, nontender. Extremities: Slight edema. Impression And Plan: 1. Hyponatremia, depletional. Patient will continue p.o. fluid restriction and sodium chloride tablets. a. Plan is to re-evaluate lab work in the morning. b. Plan is to check cortisol level to rule out adrenal insufficiency. 2. Hypokalemia, resolved. Patient was started on spironolactone, although spironolactone stopped due to borderline hyperkalemia. Continue to monitor. Monitor magnesium level and magnesium oxide will be adjusted according to lab results. 3. Hypertension. Blood pressure control. 4. Deconditioning. Continue physical therapy. I spent total 36 min including 25 min to coordinate care plan. GUILLERMINA/FAUSTO Voice ID: [id number] Report ID: [id number] BRIAN
[2019-06-07] MEDS: metroNIDAZOLE 500 MG TABLET PO SCH ×3 (01:10→17:17)
--- NOTE | 2019-06-07 01:21 | FAST ---
SHIFT START DATE/TIME: 06/06/2019 19:00 (CDT) SHIFT END DATE/TIME: 06/07/2019 07:00 (CDT) NAME ARCHANA VANN DATE OF : 1945 DATE OF ADMISSION: 06/01/2019 16:13 (CDT) PHONE: AGE: 73 SSN# [id number] GENDER: Female ENCOUNTER PHYSICIAN: Dr. Philip Elias M.D. ADMISSION DIAGNOSIS: - Debility 16 - Debility (16) Small Bowel Obstruction. EATING: Activity did not occur on this shift EATING - SCORE: 0-UNK GROOMING: Wash, rinse, and dry hands GROOMING - STEP 1: Does the patient require the assistance of a person or device, or need extra time when grooming? Yes. GROOMING - STEP 2: Does the patient require the assistance of a helper? Yes. GROOMING - STEP 3: How much assistance does the patient require from the helper? Only prior equipment preparation/set up from the helper GROOMING - SCORE: 5-SUP BATHING: Activity did not occur on this shift BATHING - SCORE: 0-UNK DRESSING - UPPER BODY: Patient is not dressing in public clothing ARTICLES SCORE Total number of steps: 0 DRESSING - UPPER BODY - SCORE: 0-UNK DRESSING - LOWER BODY: Patient is not dressing in public clothing ARTICLES SCORE Total number of steps: 0 DRESSING - LOWER BODY - SCORE: 0-UNK TOILETING: TOILETING - STEP 1: Does the patient require the assistance of a person or device, or need extra time with toileting? Yes . TOILETING - STEP 2: Does the patient require the assistance of a helper? Yes. TOILETING - STEP 3: How much assistance does the patient require from the helper? Hands-on assistance from the helper TOILETING - STEP 4: Of the 3 tasks: 1) Adjusting clothing prior to use, 2) Cleansing of perineal area, 3) Adjusting clot adelina after use; How many tasks does the patient perform WITHOUT assistance of the helper? Three tasks with steadying assistance from the helper TOILETING - SCORE: 4-MIN BLADDER MANAGEMENT: BLADDER MANAGEMENT - STEP 1: Does the patient control the bladder completely and intentionally without equipment or devices or med ications, and is always continent? No. BLADDER MANAGEMENT - STEP 2: Does the patient require the assistance of a helper? Yes. BLADDER MANAGEMENT - STEP 3: How much assistance does the patient require from the helper? Only supervision, stand-by, cuing, or c oaxing BLADDER MANAGEMENT - SCORE: 5-SUP BOWEL MANAGEMENT: Colostomy care provided by [facility] (patient performs less than 25% of colostomy care). BOWEL MANAGEMENT - SCORE: 1-DEP TRANSFERS: BED, CHAIR, WHEELCHAIR: TRANSFERS: BED, CHAIR, WHEELCHAIR - STEP 1: Does the patient require assistance of a person or device, or need extra time with bed, chair, or whe elchair transfers? Yes. TRANSFERS: BED, CHAIR, WHEELCHAIR - STEP 2: Does the patient require the assistance of a helper? Yes. TRANSFERS: BED, CHAIR, WHEELCHAIR - STEP 3: How much assistance does the patient require from the helper? Lifting of the legs TRANSFERS: BED, CHAIR, WHEELCHAIR - STEP 4: How many legs does the patient require the helper to lift? both legs TRANSFERS: BED, CHAIR, WHEELCHAIR - SCORE: 3-MOD TRANSFERS: TOILET: TRANSFERS: TOILET - STEP 1: Does the patient require the assistance of a person or device, or need extra time with toilet transfe rs? Yes. TRANSFERS: TOILET - STEP 2: Does the patient require the assistance of a helper? Yes. TRANSFERS: TOILET - STEP 3: How much assistance does the patient require from the helper? Only supervision, cuing, coaxing, OR he lp to set out transfer equipment or to lock brakes and/or lift foot rests TRANSFERS: TOILET - SCORE: 5-SUP TRANSFERS: SHOWER: Activity did not occur on this shift TRANSFERS: SHOWER - SCORE: 0-UNK TRANSFERS: TUB: Activity did not occur on this shift TRANSFERS: TUB - SCORE: 0-UNK LOCOMOTION: WALK: Activity did not occur on this shift LOCOMOTION: WALK - SCORE: 0-UNK LOCOMOTION: WHEELCHAIR: Activity did not occur on this shift LOCOMOTION: WHEELCHAIR - SCORE: 0-UNK COMPREHENSION: COMPREHENSION: TYPE: Both COMPREHENSION - STEP 1: Does the patient require help from a person or device, or need extra time to understand complex and a bstract ideas (such as current events, finances, discharge planning, medical issues, relationships, e tc)? No. COMPREHENSION - STEP 2: Does the patient need extra time, require an assistive device (such as glasses for visual comprehensi on or a hearing aid for auditory comprehension) or does s/he have mild difficulty understanding compl ex and abstract information? Yes. COMPREHENSION - SCORE: 6-CHRISTINA EXPRESSION EXPRESSION: TYPE: Both EXPRESSION - STEP 1: Does the patient require help from a person or device, or need extra time expressing complex and abst ract ideas (such as current events, finances, discharge planning, medical issues, relationships, etc) ? No. EXPRESSION - STEP 2: Does the patient need extra time, require an assistive device (such as augmentive communication syste m or a communication board), OR does s/he have mild difficulty expressing complex and abstract ideas (including mild dysarthria or mild word-find problems)? Yes. EXPRESSION - SCORE: 6-CHRISTINA SOCIAL INTERACTION: SOCIAL INTERACTION - STEP 1: Does the patient require a helper to interact with others in social and therapeutic situations? No. SOCIAL INTERACTION - STEP 2: Does the patient need extra time in social situations, OR does s/he interact with staff, other patien ts, and family members ONLY in structured environments, OR does s/he require medication for social in teraction? Yes, patient requires medication for social interaction SOCIAL INTERACTION - SCORE: 6-CHRISTINA PROBLEM SOLVING: PROBLEM SOLVING - STEP 1: Does the patient need help from a person or device, or need extra time to solve complex problems such as managing a checking account or confronting interpersonal problems? Yes. PROBLEM SOLVING - STEP 2: Does the patient solve basic routine problems half or more of the time? Yes. PROBLEM SOLVING - STEP 3: How often does the patient need help to solve basic routine problems? 10%-24% of the time PROBLEM SOLVING - SCORE: 4-MIN MEMORY: MEMORY - STEP 1: Does the patient need help from a person or device, or need extra time to remember frequently encount ered people, daily routines, and executing requests? No. MEMORY - STEP 2: Does the patient have slight difficulty recognizing frequently encountered people, daily routines, or executing requests without the need for repetition or using self-initiated or environmental cues to remember? Yes. MEMORY - SCORE: 6-CHRISTINA SIGNATURE PANEL: The following modified sections: Eating - Score, Grooming - Score, Dressing - Upper Body - Score, Lalito ssing - Lower Body - Score, Toileting - Score, Bladder Management - Score, Bowel Management - Score, Transfers: Bed, Chair, Wheelchair - Score, Transfers: Toilet - Score, Transfers: Shower - Score, Randle sfers: Tub - Score, Locomotion: Walk - Score, Locomotion: Wheelchair - Score, Comprehension - Score, Expression - Score, Social Interaction - Score, Problem Solving - Score, Memory - Score were [electro nically] signed by Genia Moon CNA on FriJun 07 2019 01:20:22 GMT-0500 (Central Daylight Time)
[2019-06-07] MEDS: CARVEDILOL 25 MG TAB PO SCH ×2 (05:04→17:17)
[2019-06-07 06:23] LABS: Magnesium 1.8 mg/dL (1.8-2.4); Potassium 5.5 mmol/L (3.5-5.1)
[2019-06-07] MEDS: INSULIN -REGULAR HUMAN 50 UNIT/0.5 ML ML SQ SCH ×4 (07:30→21:00)
[2019-06-07] MEDS ORDERED: SOD POLYSTYREN SUL 15 GM/60 ML UCUP PO ONE ×2 (07:35→18:03)
[2019-06-07] MEDS: GLUCERNA SHAKE 237 ML CAN PO SCH ×2 (08:00→08:23)
[2019-06-07] MEDS ORDERED: HYDROCORTISONE 10 MG TAB PO SCH (08:00)
[2019-06-07] MEDS: DULOXETINE 20 MG CAP PO SCH (08:20)
[2019-06-07] MEDS: ACETAMINOPHEN 500 MG TAB PO PRN (08:20)
[2019-06-07] MEDS: MAGNESIUM OXIDE 400 MG TAB PO SCH ×2 (08:21→20:00)
[2019-06-07] MEDS: glipiZIDE 5 MG TAB PO SCH ×2 (08:21→17:17)
[2019-06-07] MEDS: PANTOPRAZOLE 40MG TABLET PO SCH (08:21)
[2019-06-07] MEDS: CIPROFLOXACIN HCL 500 MG TAB PO SCH ×2 (08:22→21:00)
[2019-06-07] MEDS: FLUCONAZOLE 100 MG TAB PO SCH (08:22)
[2019-06-07] MEDS: AMLODIPINE 10 MG TAB PO SCH (08:22)
[2019-06-07] MEDS: PROMOD 30 ML DOSE PO SCH ×2 (08:23→20:00)
[2019-06-07] MEDS: NYSTATIN 500,000 UNIT/5 ML UDC PO SCH ×2 (08:23→21:00)
[2019-06-07] MEDS: SODIUM CHLORIDE 1 GM TAB PO SCH ×3 (08:59→21:00)
[2019-06-07] MEDS: HEPARIN 5000 UNIT/ML 1 ML VIAL SQ SCH (09:02)
--- NOTE | 2019-06-07 11:31 | PN ---
Date of Progress Note: 06/07/2019 Subjective: Patient is awake, alert, tolerating diet. Vital signs stable. Afebrile. Abdomen benig n. Wound has essentially healed. Assessment: Status post exploratory laparotomy, small bowel resection. Recommendations: Discontinue xochitl, Steri-Strips. Continue nutritional optimization. Vitamins as ordered. Physical therapy cleared for discharge whenever she fishes in rehab [facility]. 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 /MODL Voice ID: [id number] Report ID: [id number]
--- NOTE | 2019-06-07 12:48 | FAST ---
ENCOUNTER DATE AND TIME: 06/07/2019 08:00 (CDT) NAME ARCHANA VANN DATE OF : 1945 DATE OF ADMISSION: 06/01/2019 16:13 (CDT) PHONE: AGE: 73 SSN# [id number] GENDER: Female ENCOUNTER PHYSICIAN: Dr. Philip Elias M.D. ADMISSION DIAGNOSIS: - Debility 16 - Debility (16) Small Bowel Obstruction. EATING: Activity did not occur on this shift EATING - SCORE: 0-UNK GROOMING: Activity did not occur on this shift GROOMING - SCORE: 0-UNK BATHING: Activity did not occur on this shift BATHING - SCORE: 0-UNK DRESSING - UPPER BODY: Activity did not occur on this shift Patient is not dressing in public clothing ARTICLES SCORE Total number of steps: 0 DRESSING - UPPER BODY - SCORE: 0-UNK DRESSING - LOWER BODY: Activity did not occur on this shift Patient is not dressing in public clothing ARTICLES SCORE Total number of steps: 0 DRESSING - LOWER BODY - SCORE: 0-UNK TOILETING: Activity did not occur on this shift TOILETING - SCORE: 0-UNK BLADDER MANAGEMENT: Activity did not occur on this shift BLADDER MANAGEMENT - SCORE: 7-IND BOWEL MANAGEMENT: Activity did not occur on this shift BOWEL MANAGEMENT - SCORE: 7-IND TRANSFERS: BED, CHAIR, WHEELCHAIR: TRANSFERS: BED, CHAIR, WHEELCHAIR - STEP 1: Does the patient require assistance of a person or device, or need extra time with bed, chair, or whe elchair transfers? Yes. TRANSFERS: BED, CHAIR, WHEELCHAIR - STEP 2: Does the patient require the assistance of a helper? Yes. TRANSFERS: BED, CHAIR, WHEELCHAIR - STEP 3: How much assistance does the patient require from the helper? Only supervision TRANSFERS: BED, CHAIR, WHEELCHAIR - SCORE: 5-SUP TRANSFERS: TOILET: Activity did not occur on this shift TRANSFERS: TOILET - SCORE: 0-UNK TRANSFERS: SHOWER: Activity did not occur on this shift TRANSFERS: SHOWER - SCORE: 0-UNK TRANSFERS: TUB: Activity did not occur on this shift TRANSFERS: TUB - SCORE: 0-UNK LOCOMOTION: WALK: LOCOMOTION: WALK - STEP 1: Does the patient need help from a person or device, or need extra time to walk 150 feet? Yes. LOCOMOTION: WALK - STEP 2: How much assistance does the patient require to walk a minimum of 150 feet? Only supervision, cuing, or coaxing LOCOMOTION: WALK - SCORE: 5-SUP LOCOMOTION: WHEELCHAIR: Activity did not occur on this shift LOCOMOTION: WHEELCHAIR - SCORE: 0-UNK LOCOMOTION: STAIRS: Activity did not occur on this shift LOCOMOTION: STAIRS - SCORE: 0-UNK COMPREHENSION: COMPREHENSION - SCORE: 0-UNK EXPRESSION EXPRESSION - SCORE: 0-UNK SOCIAL INTERACTION: SOCIAL INTERACTION - SCORE: 0-UNK PROBLEM SOLVING: PROBLEM SOLVING - SCORE: 0-UNK MEMORY: MEMORY - SCORE: 0-UNK SIGNATURE PANEL: The following modified sections: Transfers: Bed, Chair, Wheelchair - Score, Locomotion: Walk - Score, Locomotion: Wheelchair - Score, Locomotion: Stairs - Score, Transfers: Toilet - Score were [electron angelica] signed by García Sierra PT on FriJun 07 2019 12:47:44 T-0500 (Central Daylight Time)
--- NOTE | 2019-06-07 15:09 | FAST ---
ENCOUNTER DATE AND TIME: 06/07/2019 08:00 (CDT) NAME ARCHANA VANN DATE OF : 1945 DATE OF ADMISSION: 06/01/2019 16:13 (CDT) PHONE: AGE: 73 SSN# [id number] GENDER: Female ENCOUNTER PHYSICIAN: Dr. Philip Elias M.D. ADMISSION DIAGNOSIS: - Debility 16 - Debility (16) Small Bowel Obstruction. EATING: Activity did not occur on this shift EATING - SCORE: 0-UNK GROOMING: Comb/brush hair Wash, rinse, and dry face Wash, rinse, and dry hands GROOMING - STEP 1: Does the patient require the assistance of a person or device, or need extra time when grooming? No. GROOMING - SCORE: 7-IND BATHING: Abdomen Buttocks Chest Left arm Left lower leg and foot Left upper leg Perineal area Right arm Right lower leg and foot Right upper leg BATHING - STEP 1: Does the patient require the assistance of a person or device, or need extra time when bathing? Yes. BATHING - STEP 2: Does the patient require the assistance of a helper? Yes. BATHING - STEP 3: How much assistance does the patient require from the helper? Only supervision, cuing, coaxing, instr uctions, encouragement BATHING - SCORE: 5-SUP DRESSING - UPPER BODY: T-shirt/pullover shirt (four steps) ARTICLES SCORE Total number of steps: 4 DRESSING - UPPER BODY - STEP 1: Does the patient require help from a person or device, or need extra time when dressing above the [address]ily [address]? Yes. DRESSING - UPPER BODY - STEP 2: Does the patient require the assistance of a helper? No. Patient only requires an assistive device, s uch as a button hook, velcro, or reliability technologist. OR s/he takes more than reasonable time as s/he dresses the upper body. OR there is a concern for safety when s/he dresses the upper body DRESSING - UPPER BODY - SCORE: 6-CHRISTINA DRESSING - LOWER BODY: Slip-on shoe - Left foot (one step) Slip-on shoe - Right foot (one step) Underwear (three steps) ARTICLES SCORE Total number of steps: 5 DRESSING - LOWER BODY - STEP 1: Does the patient require help from a person or device, or need extra time when dressing below the emily st? Yes. DRESSING - LOWER BODY - STEP 2: Does the patient require the assistance of a helper? Yes. DRESSING - LOWER BODY - STEP 3: Does the helper touch the patient while dressing? No. DRESSING - LOWER BODY - SCORE: 5-SUP TOILETING: Activity did not occur on this shift TOILETING - SCORE: 0-UNK BLADDER MANAGEMENT: Activity did not occur on this shift BLADDER MANAGEMENT - SCORE: 7-IND BOWEL MANAGEMENT: Activity did not occur on this shift BOWEL MANAGEMENT - SCORE: 7-IND TRANSFERS: BED, CHAIR, WHEELCHAIR: Activity did not occur on this shift TRANSFERS: BED, CHAIR, WHEELCHAIR - SCORE: 0-UNK TRANSFERS: TOILET: Activity did not occur on this shift TRANSFERS: TOILET - SCORE: 0-UNK TRANSFERS: SHOWER: Activity did not occur on this shift TRANSFERS: SHOWER - SCORE: 0-UNK TRANSFERS: TUB: TRANSFERS: TUB - STEP 1: Does the patient require the assistance of a person or device, or need extra time with tub transfers? Yes. TRANSFERS: TUB - STEP 2: Does the patient require the assistance of a helper? Yes. TRANSFERS: TUB - STEP 3: How much assistance does the patient require from the helper? Only supervision, cuing, coaxing, or he lp to set out transfer equipment or to lock brakes and/or lift foot rests TRANSFERS: TUB - SCORE: 5-SUP LOCOMOTION: WALK: Activity did not occur on this shift LOCOMOTION: WALK - SCORE: 0-UNK LOCOMOTION: WHEELCHAIR: Activity did not occur on this shift LOCOMOTION: WHEELCHAIR - SCORE: 0-UNK LOCOMOTION: STAIRS: Activity did not occur on this shift LOCOMOTION: STAIRS - SCORE: 0-UNK COMPREHENSION: COMPREHENSION: TYPE: Auditory COMPREHENSION - STEP 1: Does the patient require help from a person or device, or need extra time to understand complex and a bstract ideas (such as current events, finances, discharge planning, medical issues, relationships, e tc)? No. COMPREHENSION - STEP 2: Does the patient need extra time, require an assistive device (such as glasses for visual comprehensi on or a hearing aid for auditory comprehension) or does s/he have mild difficulty understanding compl ex and abstract information? Yes. COMPREHENSION - SCORE: 6-CHRISTINA EXPRESSION EXPRESSION: TYPE: Non-Vocal EXPRESSION - STEP 1: Does the patient require help from a person or device, or need extra time expressing complex and abst ract ideas (such as current events, finances, discharge planning, medical issues, relationships, etc) ? No. EXPRESSION - STEP 2: Does the patient need extra time, require an assistive device (such as augmentive communication syste m or a communication board), OR does s/he have mild difficulty expressing complex and abstract ideas (including mild dysarthria or mild word-find problems)? No. EXPRESSION - SCORE: 7-IND SOCIAL INTERACTION: SOCIAL INTERACTION - STEP 1: Does the patient require a helper to interact with others in social and therapeutic situations? No. SOCIAL INTERACTION - STEP 2: Does the patient need extra time in social situations, OR does s/he interact with staff, other patien ts, and family members ONLY in structured environments, OR does s/he require medication for social in teraction? No. SOCIAL INTERACTION - SCORE: 7-IND PROBLEM SOLVING: PROBLEM SOLVING - STEP 1: Does the patient need help from a person or device, or need extra time to solve complex problems such as managing a checking account or confronting interpersonal problems? No. PROBLEM SOLVING - STEP 2: Does the patient require extra time to make decisions or solve problems, OR does s/he have slight dif ficulty reading, initiating, or self-correcting in unfamiliar situations? No. PROBLEM SOLVING - SCORE: 7-IND MEMORY: MEMORY - STEP 1: Does the patient need help from a person or device, or need extra time to remember frequently encount ered people, daily routines, and executing requests? No. MEMORY - STEP 2: Does the patient have slight difficulty recognizing frequently encountered people, daily routines, or executing requests without the need for repetition or using self-initiated or environmental cues to remember? No. MEMORY - SCORE: 7-IND SIGNATURE PANEL: The following modified sections: Eating - Score, Grooming - Score, Bathing - Score, Dressing - Upper Body - Score, Dressing - Lower Body - Score, Toileting - Score, Transfers: Bed, Chair, Wheelchair - S core, Transfers: Toilet - Score, Transfers: Shower - Score, Transfers: Tub - Score, Comprehension - S core, Expression - Score, Social Interaction - Score, Problem Solving - Score, Memory - Score were [e lectronically] signed by ABENA Lyons on FriJun 07 2019 15:07:47 T-0500 ([facility] [place] Time)
--- NOTE | 2019-06-07 15:59 | P.PN ---
Subjective Date of Service: 06/07/19 Chief Complaint: Abd pain Subjective: No new changes, Working w/ PT, Doing well Review of Systems 10-point ROS is otherwise unremarkable Physical Examination - Vital Signs Temperature: 97.6 F Blood Pressure: 125/74 Pulse: 70 Respirations: 16 Pulse Ox (%): 99 - Physical Exam General: Alert, In no apparent distress HEENT: Atraumatic, PERRLA, EOMI Neck: Supple, JVD not distended Respiratory: Clear to auscultation bilaterally, Normal air movement Cardiovascular: Regular rate/rhythm, Normal S1 S2 Gastrointestinal: Normal bowel sounds, No tenderness Musculoskeletal: No tenderness Integumentary: No rashes Neurological: Normal speech, Normal tone, Normal affect Lymphatics: No axilla or inguinal lymphadenopathy - Studies Laboratory Data (last 24 hrs) 06/07/19 : Magnesium Cancelled 06/07/19 05:51: Sodium 122 L, Potassium 5.5 H, BUN 39 H, Creatinine 1.23, Glucose 169 H, Magnesium 1.8 Medications List Reviewed: Yes Assessment And Plan - Current Problems (Diagnosis) (1) Encounter for rehabilitation Current Visit: Yes Status: Acute (2) Fungemia Current Visit: No Status: Acute Plan: Patient blood was positive for Therese glabrata has finish 7 day course of Micofungin and now continues to be on Diflucan which needs to be continued for total 30 days. 06/08 (3) Perforation bowel Current Visit: No Status: Acute Plan: Patient status post perforated by our prior with abdominal abscess removal now with the ileostomy bag -currently on p.o. Cipro and Flagyl will continue that here in the hospital for total 14 days 05/23 -monitor patient closely ileostomy bag is functional at this time. 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
--- NOTE | 2019-06-07 16:16 | PN ---
Date of Progress Note: 06/07/2019 Chief Complaint: Acute kidney injury in recovery phase. History Of Present Illness: Patient has nonoliguric urine output. Patient was treated with spironol actone for fluid overload. Spironolactone was stopped because of borderline hyperkalemia and hyponat remia. Patient previously developed hyponatremia, which was gradually corrected. Yesterday, she was found to have moderately severe to severe hyponatremia, chronic. Patient does not have confusion. She denies any new symptoms. Review of Systems: Denies fever or chills. Physical Examination: Lungs: Clear to auscultation bilaterally. Heart: S1, S2. No pericardial friction rub. Abdomen: Soft, benign. Extremities: Minimal edema. Impression And Plan: 1.Hyponatremia. Patient was started on sodium chloride tablets. Continue to re-evaluate hyperkalem ia, mild, borderline. Spironolactone was stopped. Patient received 1 dose of Kayexalate. 2.Hyponatremia, recurrent. Plan is to screen for adrenal insufficiency. 3.Hypertension, controlled. 4.Deconditioning. Continue physical therapy as tolerated. EB/MODL Voice ID: [id number] Report ID: [id number]
[2019-06-07 17:08] LABS: Absolute Lymphocytes (CBC) 1.5 K/uL (0.7-4.9); Basophils % 0.8 % (0-1.3); Hematocrit 38.8 % (36.0-45.0); Lymphocytes % 15.9 % (15.3-44.8); MPV 7.9 fL (7.6-11.3); RBC Red Blood Cell Count 4.63 M/uL (3.86-4.86)
[2019-06-07 17:33] LABS: Potassium 5.7 mmol/L (3.5-5.1)
[2019-06-07 18:05] LABS: Blood Morphology Comment NOT SEEN (NOT SEEN); Platelet Estimate INCR; Urine White Blood Cell Casts OK
[2019-06-07] MEDS ORDERED: NA CHLORIDE 0.9% 1,000 ML IV SCH (19:00)
[2019-06-07] MEDS ORDERED: NEPRO SHAKE 237 ML CAN PO SCH (20:00)
[2019-06-07 21:35] VITALS: BP 145/83; TEMP 97.9
[2019-06-07] MEDS ORDERED: NACHLORIDE 0.45% 1,000 ML with NA BICARB 8.4% 100 MEQ IV SCH ×2 (21:47)
[2019-06-08] MEDS ORDERED: MEGESTROL 40 MG TAB PO SCH (08:00)
--- NOTE | 2019-06-08 13:38 | EKG ---
Test Date: 2019-06-07 Test Time: 19:00:44 [employer] Manager: GUSTAVO MEASUREMENT RESULTS: Intervals: Rate: 81 CO: QRSD: 82 QT: 382 QTc: 443 [place]: P: CO: QRS: 46 T: 61 INTERPRETIVE STATEMENTS: Atrial fibrillation Abnormal ECG Compared to ECG 05/15/2019 08:55:50 No significant changes Electronically Signed On 06-08-19 13:34:21 CDT by Ez Burks
--- NOTE | 2019-06-11 12:49 | R.DS ---
FACILITY [facility] MR# [id number] NAME ARCHANA LEE ADDRESS [address] [address] PHONE DATE OF 1945 AGE 73 SSN# [id number] GENDER Female DEXTERITY Right-handed MARITAL STATUS RACE ENCOUNTER PHYSICIAN Dr. Philip Elias M.D. REFERRING DOCTOR Efraín Castro REFERRING FACILITY [facility] DISCHARGE DIAGNOSIS: - Debility 16 - Debility (16) Small Bowel Obstruction. DISCHARGE COMORBIDITIES: - Tier 3 Type 2 diabetes mellitus with diabetic neuropathy, unspecified (E11.40) - N/A Hypertension Chronic Hearing Loss DATE OF ADMISSION 06/01/2019 16:13 (CDT) MEDICATION ALLERGIES: No Known Drug Allergies (NKDA) ENVIRONMENTAL ALLERGIES: None Known - Substance Allergies None Known - Other Allergies None Known DISCHARGE MEDICATIONS: Other- See attached MAR (Medication Administration Record) Archana Lee.[email or web address]. NURSING: - Shower allowing shower - Lab Results blood Sugar Check ACHS ACTIVITIES OOB only with supervision THERAPIES: - Dietary and Nutrition Adequate Nutrition Nutritional Education Nutritional Supplements HISTORY OF PRESENT ILLNESS: Pt. is a 73 yo Right-handed female.On 05/14/2019 she was admitted to [facility] with diagnosis Small Bowel Obstruction.Her impairment category is Debility 16 - Debility (16) .Pre-morbidly, Pt. was independent/mod-I in Sphincter Control, Communication, and Social Cognition; a nd she had good Sphincter Control.Currently, she has deficits of Self-Care, Transfers Control, Locomo tion, Endurance, Balance, and Safety Awareness.Pt. is now referred to [facility] for acute in-patient rehabilitation in order to maximize patient's functional independence in acti vities of daily living, strength, ROM, and mobility.- Rehab Goal Patient has realistic goal of being discharged at assistance level 6-Juan Manuel to reside at Home with Fam sandra/Relatives. Archana Lee is a 73 old female that lives in a single mayra house with 4 steps to enter with her and son. 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 On 05/14/2019, she had nause a, vomiting and abdominal pain and was admitted to [facility] and treated. She is now medically stabl e but in need of 24-hour nursing, doctor supervision and oversite while receiving participate in 3hours of therapy a day/15 hours per week and receive care with an intensive interdisciplinary approach.Since her admission to the rehab floor, her ongoing hyponatre jermain and acute renal failure did not improve and she developed chest pain with new onset atrial fibril lation. Therefore, she was discharged to the ICU on 06/07/19 for acute care management by the hospital ist.Just prior to discharge she ambulated 750' total with short breaks using a rolling walker and sta ndby assistance. She was up and down 15 stairs with standby assistance using bilateral handrails.HOSP ITAL COURSE: DIET - LIQUID TEXTURE: On 06/01/2019 Pt was upgraded to Regular Diet - Liquid Texture. DIET - SOLID TEXTURE: On 06/01/2019 Pt was changed to GI SOFT Diet - Solid Texture. On 06/02/2019 Pt was changed from GI SOFT Diet - Solid Texture to Regular. Pt was downgraded from Regular Diet - Solid Texture to GI SOFT. DIET TYPE: On 06/01/2019 Pt was changed to ADA 1800 Diet Type. TUBE FEED: On 06/01/2019 Pt was changed to N/A Tube Feed. DISCHARGE PHYSICAL EXAM - Gen Alert and awake Lying in bed No apparent distress Oriented to: person, time, and place - Skin No breakdown No abnormalities - Eyes No abnormalities - ENMT No abnormalities - Neck No abnormalities - CVS RRR - Chest No abnormalities - Resp Clear to auscultation - Abd Healing incision - GI + bowel sounds Deferred - No abnormalities - Ext Mild bilateral lower extremity edema. - MSK 4+/5 weakness in both lower extremities. - Neuro 4/5 strength left lower extremity. - Psych No abnormalities FUNCTIONAL STATUS: - Self-Care A. Eating 5-sup 5-sup B. Grooming 5-sup 5-sup C. Bathing 5-sup 5-sup D. Dressing - Upper 4-Paulina 4-Paulina E. Dressing - Lower 4-Paulina 4-Paulina F. Toileting 4-Paulina 4-Paulina - Sphincter Control G: Bladder control 7-Ind 7-Ind H: Bowel control 7-Ind 7-Ind - Transfers Control I. Bed/Chair/Wheelchair 5-sup 5-sup J. Toilet 5-sup 5-sup K. Tub/Shower 0-ADNO 5-sup - Locomotion L. Walk/Wheelchair (C) CGA 5-sup L. Walk/Wheelchair (W) CGA 5-sup M. Stairs 0-ADNO 5-sup - Communication N. Comprehension (B) 7-Ind 7-Ind O. Expression (B) 7-Ind 7-Ind - Social Cognition P. Social Interaction 7-Ind 7-Ind Q. Problem Solving 7-Ind 7-Ind R. Memory 7-Ind 7-Ind - Endurance Fair - Balance Fair - Safety Awareness Fair DISCHARGE INSTRUCTIONS: - N/A Heparin 5000 iu sq q 12 hours. DISCHARGE PLAN, FOLLOW UP CARE PROVISIONS: - Estimated Length of Stay (days) 13. - Consensus on plan Discharge plan has been discussed with primary caregiver. Patient/Family is in agreement with the [facility] Primary caregiver is in agreement with the plan. - Patient/Family Goals Return home with assistance. - Planned Living Setting Upon Discharge Home, to live with Family/Relatives. Transitional Living. SIGNATURE PANEL: (CDT)
== END 2019-06-07 22:05 | disposition short-term general hospital (02) | DRG 948 ==
LOC: 5TH 16:13
PROVIDERS: ADMIT Psychiatry & Neurology Neurology with Special Qualifications in Child Neurology; ATTEND Psychiatry & Neurology Neurology with Special Qualifications in Child Neurology
DX: R53.81 Other malaise (principal); B49 Unspecified mycosis; E87.1 Hypo-osmolality and hyponatremia; E11.40 Type 2 diabetes mellitus with diabetic neuropathy, unspecified; I10 Essential (primary) hypertension; H91.90 Unspecified hearing loss, unspecified ear; E78.5 Hyperlipidemia, unspecified; E87.6 Hypokalemia; Z93.2 Ileostomy status
CPT/HCPCS: 36415; 80048; 81001; 82040; 82533; 82962; 83735; 84134; 85025; 87086; 87088; 93005; 97110; 97112; 97116; 97150; 97162; 97167; 97530; J1644; J7030

== ENCOUNTER 2019-06-07 21:00 | Inpatient (IN) | payer OTHER ==
--- OUTSIDE RECORDS SUMMARY | 2019-06-07 21:12 | XMS REPORT ---
[...] End Status Dosage System Date Date GlipiZIDE [facility] 86177858112 5 MG Orally Active 1 tablet Once a day Metformin HCl [facility] 41399606528 1000 MG Orally Active 1 tablet Twice daily with a meal Iron [facility] 12565318806 325 (65 Fe) MG Active 1 tablet Orally Once a day ProAir HFA [facility] [address]-24 108 (90 Base) Active 2 puffs as MCG/ACT needed for Inhalation SOB/wheezin every 4-6 hrs ig Ventolin HFA [facility] 90129165638 108 (90 Base) Nov 24, Active 2 puffs as MCG/ACT 2019 needed for Inhalation sob/wheezin every 4-6 hrs g Coreg [facility] 54776280756 25 mg Orally Active 1 tablet Twice daily Doxazosin [facility] 02451114937 2 MG Orally February Active 1 tablet in Mesylate Once a day 2017 evening for high blood pressure Amlodipine ND 87351191832 10 MG Orally Active 1 tablet Besylate Once a day Klor-Con [address] [facility] 19486954699 10 MEQ Orally Active 1 tablet Twice a day with food Vitamin D-[address] [facility] 25428897250 1000 UNIT Active 2 capsules Orally Once a day Doxazosin ND 53406005513 1 MG Orally Aug 28, Active 1 tablet in Mesylate Once a day 2017 evening [address]in [facility] 16906928649 500-125 MG Nov 24, Dec 04, Active 1 tablet Orally every 2018 2019 hrs Telmisartan [facility] 54998310014 80 MG Orally Active 1 tablet Once a day Results No Known Results Immunizations Vaccine Administration Date Pneumovax Dec 01, 2018 Summary Purpose eClinicalWorks Submission
--- OUTSIDE RECORDS SUMMARY | 2019-06-07 21:12 | XMS REPORT ---
[...] End Status Dosage System Date Date Amlodipine [facility] 15082216094 10 MG Orally Active 1 tablet Besylate Once a day Doxazosin [facility] 12671125559 1 MG Orally Gabby Active 1 tablet in Mesylate Once a day 2017 evening for high blood pressure Klor-Con [address] [facility] 38191269915 10 MEQ Orally Active 1 tablet Twice a day with food Coreg [facility] 90319928808 25 mg Orally Active 1 tablet Twice daily Telmisartan [facility] 33333617179 80 MG Orally Active 1 tablet Once a day Vitamin D-[address] [facility] 97622586103 1000 UNIT Active 2 capsules Orally Once a day GlipiZIDE [facility] 27419074696 5 MG Orally Active 1 tablet Once a day Iron [facility] 66993748668 325 (65 Fe) MG Active 1 tablet Orally Once a day Metformin HCl [facility] 03567871669 1000 MG Orally Active 1 tablet Twice daily with a meal Results Name Result Date Reference Range Unit Abnormality Flag URINALYSIS AUTO W/O SCOPE ([id number]) ----NIT neg [id number] ----URO 0.2 [id number] ----PROTEIN neg [id number] ----pH 6.0 20180706 ----BLO neg [id number] ----GLUCOSE neg [id number] ----DEDE neg [id number] ----BILIRUBIN neg [id number] ----KETONES neg [id number] ----SPECIFIC GRAVITY 1.010 [id number] Summary Purpose eClinicalWorks Submission
--- OUTSIDE RECORDS SUMMARY | 2019-06-07 21:12 | XMS REPORT ---
[...] finger prick 2018 once daily Doxazosin ND 08734873732 1 MG Orally Aug 28, Active 1 tablet in Mesylate Once a day 2017 evening GlipiZIDE [facility] 22188564619 5 MG Orally Active 1 tablet Once a day Vitamin D-3 ND 26637685249 1000 UNIT Active 2 capsules Orally Once a day Telmisartan ND 98921829704 80 MG Orally Active 1 tablet Once a day ProAir HFA [facility] 17146384638 108 (90 Base) Active 2 puffs as MCG/ACT needed for Inhalation SOB/wheezin every 4-6 hrs ig Ventolin HFA ND 01201317391 108 (90 Base) Nov 24, Active 2 puffs as MCG/ACT 2018 needed for Inhalation sob/wheezin every 4-6 hrs g Iron [facility] 69910228647 325 (65 Fe) MG Active 1 tablet Orally Once a day Metformin HCl ND 93263462803 1000 MG Orally Active 1 tablet Twice daily with a meal Klor-Con 10 [facility] 93315215231 10 MEQ Orally Active 1 tablet Twice a day with food Doxazosin ND 17419054986 2 MG Orally February Active 1 tablet in Mesylate Once a day 2017 evening for high blood pressure Coreg ND 79109568842 25 mg Orally Active 1 tablet Twice daily Amlodipine [facility] 45991532600 10 MG Orally Active 1 tablet Besylate Once a day Results No Known Results Summary Purpose eClinicalWorks Submission
--- OUTSIDE RECORDS SUMMARY | 2019-06-07 21:12 | XMS REPORT ---
:1945 Author Organization eClinicalWorks Care Team Providers Name Role Phone [place] Provider Role Unavailable Allergies, Adverse Reactions, Alerts [...] End Status Dosage System Date Date Doxazosin [facility] 01981216129 2 MG Orally February Active 1 tablet in Mesylate Once a day 2017 evening for high blood pressure GlipiZIDE [facility] 36194237879 5 MG Orally Active 1 tablet Once a day One Touch test ND 0 test strips Dec 28, Active one strip strips finger prick 2018 once daily Doxazosin ND 44496397663 1 MG Orally Aug 28, Active 1 tablet in Mesylate Once a day 2017 evening Vitamin D-3 [facility] 57959277315 1000 UNIT Active 2 capsules Orally Once a day Coreg [facility] 37140126269 25 mg Orally Active 1 tablet Twice daily Telmisartan [facility] 08174984605 80 MG Orally Active 1 tablet Once a day ProAir HFA [facility] 36441731900 108 (90 Base) Active 2 puffs as MCG/ACT needed for Inhalation SOB/wheezin every 4-6 hrs ig Amlodipine ND 70172951905 10 MG Orally Active 1 tablet Besylate Once a day Ventolin HFA [facility] 57600379087 108 (90 Base) Nov 24, Active 2 puffs as MCG/ACT 2019 needed for Inhalation sob/wheezin every 4-6 hrs g Iron [facility] 98977376236 325 (65 Fe) MG Active 1 tablet Orally Once a day Klor-Con 10 [facility] 95534308805 10 MEQ Orally Active 1 tablet Twice a day with food Metformin HCl ND 53355151181 1000 MG Orally Active 1 tablet Twice daily with a meal Results Name Result Date Reference Range Unit Abnormality Flag URINALYSIS AUTO W/O SCOPE (20688) ----NIT neg [id number] ----URO 0.2 20190104 ----PROTEIN neg [id number] ----pH 6.0 20190104 ----BLO neg [id number] ----GLUCOSE neg 20190104 ----DEDE tr 20190104 ----BILIRUBIN neg 20190104 ----KETONES neg 20190104 ----SPECIFIC GRAVITY <=1.005 20190104 Summary Purpose eClinicalWorks Submission
--- OUTSIDE RECORDS SUMMARY | 2019-06-07 21:12 | XMS REPORT ---
[...] Status Dosage System Date Date Ventolin HFA [facility] 00198314304 108 (90 Base) Nov 24, Active 2 puffs as MCG/ACT 2019 needed for Inhalation sob/wheezin every 4-6 hrs g Metformin HCl [facility] 07355803754 1000 MG Orally Active 1 tablet Twice daily with a meal Doxazosin [facility] 70643513432 2 MG Orally February Active 1 tablet in Mesylate Once a day 2017 evening for high blood pressure Telmisartan [facility] 30772667540 80 MG Orally Active 1 tablet Once a day Vitamin D-3 [facility] 02580552135 1000 UNIT Active 2 capsules Orally Once a day Klor-Con 10 [facility] 47175379039 10 MEQ Orally Active 1 tablet Twice a day with food Iron [facility] 02964795091 325 (65 Fe) MG Active 1 tablet Orally Once a day Amlodipine [facility] 30849830979 10 MG Orally Active 1 tablet Besylate Once a day Augmentin [facility] 19028715452 500-125 MG Nov 24, Dec 04, Active 1 tablet Orally every 2018 2019 hrs Coreg [facility] 67596407595 25 mg Orally Active 1 tablet Twice daily Doxazosin [facility] 12624817987 1 MG Orally Aug 28, Active 1 tablet in Mesylate Once a day 2018 evening GlipiZIDE [facility] 18859691079 5 MG Orally Active 1 tablet Once a day Results Name Result Date Reference Range Unit Abnormality Flag COMPREHENSIVE METABOLIC PANEL(CMP) ----ALBUMIN/GLOBULI 1.6 [id number] 1.0-2.5 (calc) N N RATIO ----GLOBULIN 2.5 [id number] 1.9-3.7 g/dL N (calc) ----ALKALINE 58 20181125 33-130 U/L N PHOSPHATASE ----BILIRUBIN, 0.6 90012901 0.2-1.2 mg/dL N TOTAL ----CHLORIDE 100 20181125 98-110 mmol/L N ----ALT 10 20181125 6-29 U/L N ----POTASSIUM 4.5 [id number] 3.5-5.3 mmol/L N ----AST 12 20181125 10-35 U/L N ----SODIUM 136 20181125 135-146 mmol/L N ----BUN/CREATININE NOT APPLICABLE [id number] 6-22 (calc) RATIO ----eGFR 99 20181125 > OR=60 mL/min/1.7 [place] [address] ----CALCIUM 9.2 91656415 8.6-10.4 mg/dL N ----CARBON DIOXIDE 29 20181125 20-32 mmol/L N ----ALBUMIN 4.0 43464493 3.6-5.1 g/dL N ----PROTEIN, TOTAL 6.5 20181125 6.1-8.1 g/dL N ----GLUCOSE 148 36981116 65-99 mg/dL H ----UREA NITROGEN 14 20181125 7-25 mg/dL N (BUN) ----CREATININE 0.70 20181125 0.60-0.93 mg/dL N ----eGFR NON-AFR. 85 [id number] > OR=60 mL/min/1.7 [place] [address] LIPID PANEL ----NON HDL 92 47446947 <130 mg/dL N CHOLESTEROL (calc) ----LDL-CHOLESTEROL 74 11110697 mg/dL N (calc) ----CHOL/HDLC RATIO 2.5 04525761 <5.0 (calc) N ----HDL CHOLESTEROL 63 20181125 >50 mg/dL N ----TRIGLYCERIDES 99 20181125 <150 mg/dL N ----CHOLESTEROL, 155 20181125 <200 mg/dL N TOTAL Summary Purpose eClinicalWorks Submission
--- OUTSIDE RECORDS SUMMARY | 2019-06-07 21:12 | XMS REPORT ---
[...] End Status Dosage System Date Date Telmisartan [facility] 76883047673 80 MG Orally Active 1 tablet Once a day GlipiZIDE [facility] 32001135740 5 MG Orally Active 1 tablet Once a day Doxazosin [facility] 35505396270 1 MG Orally Gabby Active 1 tablet in Mesylate Once a day 2017 evening for high blood pressure Coreg [facility] 33486518262 25 mg Orally Active 1 tablet Twice daily Amlodipine [facility] 68086870870 10 MG Orally Active 1 tablet Besylate Once a day Klor-Con 10 [facility] 98744122823 10 MEQ Orally Active 1 tablet Twice a day with food Iron [facility] 46117144446 325 (65 Fe) MG Active 1 tablet Orally Once a day Vitamin D-3 [facility] 15349018585 1000 UNIT Active 2 capsules Orally Once a day Metformin HCl [facility] 96008793695 1000 MG Orally Active 1 tablet Twice daily with a meal Results Name Result Date Reference Range Unit Abnormality Flag URINALYSIS AUTO W/O SCOPE ([id number]) ----NIT neg [id number] ----URO 0.2 [id number] ----PROTEIN 1+ 20180617 ----pH 6.0 20180617 ----BLO neg [id number] ----GLUCOSE neg [id number] ----DEDE neg [id number] ----BILIRUBIN neg [id number] ----KETONES neg [id number] ----SPECIFIC GRAVITY >=1.030 20180617 PVR ----PVR 0 [id number] Summary Purpose eClinicalWorks Submission
--- OUTSIDE RECORDS SUMMARY | 2019-06-07 21:12 | XMS REPORT ---
[...] End Status Dosage System Date Date Coreg [facility] 93119773843 25 mg Orally Active 1 tablet Twice daily Klor-Con 10 [facility] 07784390915 10 MEQ Orally Active 1 tablet Twice a day with food Iron [facility] 79666553899 325 (65 Fe) MG Active 1 tablet Orally Once a day Telmisartan [facility] 98426047157 80 MG Orally Active 1 tablet Once a day Doxazosin [facility] 75745959702 1 MG Orally Gabby Active 1 tablet in Mesylate Once a day 2017 evening for high blood pressure GlipiZIDE [facility] 01172511394 5 MG Orally Active 1 tablet Once a day Metformin HCl [facility] 52171261789 1000 MG Orally Active 1 tablet Twice daily with a meal Vitamin D-3 [facility] 55383311877 1000 UNIT Active 2 capsules Orally Once a day Amlodipine [facility] 63452029572 10 MG Orally Active 1 tablet Besylate Once a day Results No Known Results Summary Purpose eClinicalWorks Submission
--- OUTSIDE RECORDS SUMMARY | 2019-06-07 21:12 | XMS REPORT ---
:1945 Author Organization eClinicalWorks Care Team Providers Name Role Phone Natalia Ross Provider Role Unavailable Allergies No Known Allergies Problems Problem Type Condition Code Onset Dates Condition Status Problem Diabetes E11.9 Active Problem Hypertension, unspecified type I10 Active Problem Hypertension I10 Active Medications Medication Code System Code Instructions Start Date End Date Status Dosage Cipro [facility] 38661813426 500 MG Orally Jun 22, Jun 27, Active 1 tablet every 12 hrs 2017 2017 Results No Known Results Summary Purpose eClinicalWorks Submission
--- OUTSIDE RECORDS SUMMARY | 2019-06-07 21:13 | XMS REPORT ---
[...] Status Dosage System Date Date ProAir HFA [facility] 80792541170 108 (90 Base) Active 2 puffs as MCG/ACT needed for Inhalation SOB/wheezin every 4-6 hrs ig One Touch test ND 0 test strips Dec 28, Active one strip strips finger prick 2018 once daily Vitamin D-3 [facility] 75532553962 1000 UNIT Active 2 capsules Orally Once a day Iron [facility] 60660899756 325 (65 Fe) MG Active 1 tablet Orally Once a day GlipiZIDE [facility] 44152114807 5 MG Orally Active 1 tablet Once a day Amlodipine [facility] 91280624483 10 MG Orally Active 1 tablet Besylate Once a day Coreg ND 30528209520 25 mg Orally Active 1 tablet Twice daily Doxazosin [facility] 85109154375 1 MG Orally Aug 28, Active 1 tablet in Mesylate Once a day 2017 evening Ventolin HFA [facility] 17580923921 108 (90 Base) Nov 24, Active 2 puffs as MCG/ACT 2018 needed for Inhalation sob/wheezin every 4-6 hrs g Klor-Con 10 [facility] 41199664798 10 MEQ Orally Active 1 tablet Twice a day with food Doxazosin [facility] 30988481150 2 MG Orally February Active 1 tablet in Mesylate Once a day 2017 evening for high blood pressure Metformin HCl ND 31208709587 1000 MG Orally Active 1 tablet Twice daily with a meal Telmisartan [facility] 46394540064 80 MG Orally Active 1 tablet Once a day Results No Known Results Summary Purpose eClinicalWorks Submission
--- OUTSIDE RECORDS SUMMARY | 2019-06-07 21:13 | XMS REPORT ---
[...] Dosage System Date Date Metformin HCl ND 70885165740 1000 MG Orally Active 1 tablet Twice daily with a meal Coreg ND 76771226771 25 mg Orally Active 1 tablet Twice daily Ventolin HFA [facility] 87065851155 108 (90 Base) Nov 24, Active 2 puffs as MCG/ACT 2019 needed for Inhalation sob/wheezin every 4-6 hrs g Klor-Con [address] [facility] 82288306475 10 MEQ Orally Active 1 tablet Twice a day with food Tessalon Perles [facility] 56722453617 100 MG Orally May 04May Active 1 capsule Three times a 2019 05, as needed day 2019 for cough ProAir HFA [facility] 54695515183 108 (90 Base) Active 2 puffs as MCG/ACT needed for Inhalation SOB/wheezin every 4-6 hrs ig Amlodipine [facility] 06790618965 10 MG Orally Active 1 tablet Besylate Once a day Telmisartan [facility] 26628419769 80 MG Orally Active 1 tablet Once a day Vitamin D-3 [facility] 02999137377 1000 UNIT Active 2 capsules Orally Once a day Doxazosin [facility] 88065806363 1 MG Orally Aug 28, Active 1 tablet in Mesylate Once a day 2017 evening Iron [facility] 79291636753 325 (65 Fe) MG Active 1 tablet Orally Once a day Augmentin [facility] 49194026073 500-125 MG May 04May Active 1 tablet Orally every 2018 05, hrs 2019 One Touch test ND 0 test strips Dec 28, Active one strip strips finger prick 2018 once daily GlipiZIDE [facility] 31979850663 5 MG Orally Active 1 tablet Once a day Doxazosin [facility] 33428599838 2 MG Orally February Active 1 tablet in Mesylate Once a day 2017 evening for high blood pressure Results No Known Results Summary Purpose eClinicalWorks Submission
--- OUTSIDE RECORDS SUMMARY | 2019-06-07 21:13 | XMS REPORT ---
[...] End Status Dosage System Date Date Iron [facility] [place] 53110911232 325 (65 Fe) MG Active 1 tablet Orally Once a day Vitamin D-3 [facility] [place] 2] 90992904692 1000 UNIT Active 2 capsules Orally Once a day GlipiZIDE [facility] [place] 2] 98071002192 5 MG Orally Active 1 tablet Once a day Doxazosin [facility] [place] 2[place] 81767089331 2 MG Orally February Active 1 tablet in Mesylate Once a day 2017 evening for high blood pressure One Touch test NDC 0 test strips Dec 28, Active one strip strips finger prick 2018 once daily Doxazosin [facility] [place] 2] 26577250431 1 MG Orally Aug 28, Active 1 tablet in Mesylate Once a day 2017 evening Klor-Con 10 [facility] [place] 2[place] 81710611887 10 MEQ Orally Active 1 tablet Twice a day with food Coreg ND 88202524163 25 mg Orally Active 1 tablet Twice daily Telmisartan [facility] [place]NOTE 2] 58767784919 80 MG Orally Active 1 tablet Once a day Metformin HCl ND 31393208904 1000 MG Orally Active 1 tablet Twice daily with a meal Ventolin HFA [facility] [place]NOTE 2[place] 50602007608 108 (90 Base) Nov 24, Active 2 puffs as MCG/ACT 2019 needed for Inhalation sob/wheezin every 4-6 hrs g ProAir HFA [facility] [place] 2[place] 30273175700 108 (90 Base) Active 2 puffs as MCG/ACT needed for Inhalation SOB/wheezin every 4-6 hrs ig Amlodipine [facility] [place] 2[place] 97255940274 10 MG Orally Active 1 tablet Besylate Once a day Results No Known Results Summary Purpose eClinicalWorks Submission
--- OUTSIDE RECORDS SUMMARY | 2019-06-07 21:13 | XMS REPORT ---
:1945 Author Organization eClinicalWorks Care Team Providers Name Role Phone oLco Fatou Provider Role Unavailable Allergies No Known [...] Medications Results No Known Results Summary Purpose eClinicalAmprius Submission
--- OUTSIDE RECORDS SUMMARY | 2019-06-07 21:13 | XMS REPORT ---
[...] Status Dosage System Date Date Vitamin D-3 [facility] 37050206588 1000 UNIT Active 2 capsules Orally Once a day Iron [facility] 00188077785 325 (65 Fe) MG Active 1 tablet Orally Once a day Telmisartan [facility] 78141980702 80 MG Orally Active 1 tablet Once a day One Touch test ND 0 test strips Dec 28, Active one strip strips finger prick 2018 once daily GlipiZIDE [facility] 14562429754 5 MG Orally Active 1 tablet Once a day Doxazosin ND 06737497848 1 MG Orally Aug 28, Active 1 tablet in Mesylate Once a day 2017 evening Klor-Con 10 [facility] 15738446041 10 MEQ Orally Active 1 tablet Twice a day with food Amlodipine [facility] 40831630975 10 MG Orally Active 1 tablet Besylate Once a day Tessalon Perles ND 19528965028 100 MG Orally May 04May Active 1 capsule Three times a 2019 05, as needed day 2018 for cough Doxazosin ND 03916439662 2 MG Orally February Active 1 tablet in Mesylate Once a day 2017 evening for high blood pressure ProAir HFA [facility] 21525025560 108 (90 Base) Active 2 puffs as MCG/ACT needed for Inhalation SOB/wheezin every 4-6 hrs ig Metformin HCl [facility] 94872213138 1000 MG Orally Active 1 tablet Twice daily with a meal Ventolin HFA [facility] 70533459674 108 (90 Base) Nov 24, Active 2 puffs as MCG/ACT 2019 needed for Inhalation sob/wheezin every 4-6 hrs g Augmentin [facility] 63201571005 500-125 MG May 04May Active 1 tablet Orally every 2018 05, hrs 2019 Coreg [facility] 79832792448 25 mg Orally Active 1 tablet Twice daily Results Name Result Date Reference Range Unit Abnormality Flag STREP A RAPID ----Result Negative [id number] Summary Purpose eClinicalWorks Submission
--- OUTSIDE RECORDS SUMMARY | 2019-06-07 21:13 | XMS REPORT ---
[...] Medications Results No Known Results Summary Purpose eClinicalZipline Games Submission
[2019-06-07] MEDS ORDERED: MORPHINE 2 MG/ML SYR IV PRN (21:16)
[2019-06-07] MEDS ORDERED: ACETAMINOPHEN 500 MG TAB PO PRN (21:16)
[2019-06-07] MEDS ORDERED: ONDANSETRON 4 MG/2 ML VIAL IV PRN (21:16)
[2019-06-07] MEDS ORDERED: D50W 25 GM/50 ML SYRINGE IV PRN (21:16)
[2019-06-07] MEDS ORDERED: IPRATROPIUM BROM 0.5MG/2.5ML NEB PRN (21:16)
[2019-06-07] MEDS ORDERED: D50W 25 GM/50 ML SYRINGE IV ONE (21:16)
[2019-06-07] MEDS ORDERED: ALBUTEROL 2.5 MG/3 ML NEB SOL NEB PRN (21:16)
[2019-06-07] MEDS ORDERED: INSULIN -REGULAR HUMAN 50 UNIT/0.5 ML ML IV ONE (21:18)
[2019-06-07] MEDS ORDERED: NACHLORIDE 0.45% 1,000 ML with NA BICARB 8.4% 100 MEQ IV SCH ×2 (22:00)
[2019-06-07 22:40] VITALS: BMI 21.8
[2019-06-07] MEDS ORDERED: NACHLORIDE 0.45% 1,000 ML IV ONE (22:41)
[2019-06-07] MEDS ORDERED: SODIUM BICARB 50 MEQ/50ML VIAL ONE (22:46)
[2019-06-08 02:12] LABS: Urine Appearance CLOUDY; Urine Bilirubin NEGATIVE (NEG); Urine Blood NEGATIVE (NEG); Urine Color DK YELLOW; Urine Glucose 1+ (NEG); Urine Protein TRACE (NEG); Urine Urobilinogen 0.2 mg/dL (0.2-1.0)
[2019-06-08 02:13] LABS: Urine Microscopic Reflex ORDER UMIC
[2019-06-08 02:13] LABS: Potassium 4.2 mmol/L (3.5-5.1)
[2019-06-08 02:36] LABS: Urine Culture Reflex Order REFLEXED; Urine Mucus SLIGHT /HPF (NONE SEEN)
[2019-06-08 02:38] LABS: Urine Bacteria <20 /HPF (<20); Urine Coarse Granular Casts 0-5 /LPF (NONE SEEN)
[2019-06-08] MEDS ORDERED: DOCUSATE NA/SENNA CONC 1 TAB PO PRN (05:38)
[2019-06-08] MEDS ORDERED: GLUCAGON 1 MG/VIAL IM PRN (05:38)
[2019-06-08] MEDS ORDERED: D50W 25 GM/50 ML SYRINGE IV PRN (05:38)
[2019-06-08] MEDS ORDERED: TRAMADOL HCL 50 MG TAB PO PRN (05:48)
[2019-06-08] MEDS ORDERED: ONDANSETRON 4 MG (ODT) TAB PO PRN (05:48)
[2019-06-08] MEDS: metroNIDAZOLE 500 MG TABLET PO SCH ×3 (06:28→21:41)
[2019-06-08] MEDS: CARVEDILOL 25 MG TAB PO SCH ×2 (06:28→16:58)
[2019-06-08 06:29] LABS: Protime INR 0.92
[2019-06-08 06:40] LABS: Absolute Lymphocytes (CBC) 1.2 K/uL (0.7-4.9); Basophils % 0.8 % (0-1.3); Hematocrit 35.6 % (36.0-45.0); Lymphocytes % 15.2 % (15.3-44.8); MPV 7.9 fL (7.6-11.3); RBC Red Blood Cell Count 4.32 M/uL (3.86-4.86)
[2019-06-08 06:43] LABS: Albumin 3.1 g/dL (3.4-5.0); Bilirubin Total 0.4 mg/dL (0.2-1.0); Magnesium 1.6 mg/dL (1.8-2.4); Phosphorus 3.1 mg/dL (2.5-4.9); Potassium 4.5 mmol/L (3.5-5.1); Protein, Total 7.4 g/dL (6.4-8.2)
[2019-06-08] MEDS: INSULIN -REGULAR HUMAN 50 UNIT/0.5 ML ML SQ SCH ×4 (07:30→21:00)
[2019-06-08] MEDS: AMLODIPINE 10 MG TAB PO SCH (09:00)
[2019-06-08] MEDS ORDERED: HEPARIN 5000 UNIT/ML 1 ML VIAL SQ SCH (09:00)
[2019-06-08] MEDS ORDERED: GLUCERNA SHAKE 237 ML CAN PO SCH (09:00)
[2019-06-08 09:22] LABS: Platelet Estimate ADEQ; Urine White Blood Cell Casts OK
[2019-06-08 09:23] LABS: Blood Morphology Comment NOT SEEN (NOT SEEN)
[2019-06-08 09:59] LABS: CKMB Creatine Kinase MB < 1.0 ng/mL (0.3-3.6)
[2019-06-08] MEDS ORDERED: NA CHLORIDE 0.9% 1,000 ML IV SCH (10:00)
--- NOTE | 2019-06-08 10:13 | RAD REPORT ---
EXAM DESCRIPTION: US - Renal Ultrasound-Complete - 06/08/2019 9:34 am CLINICAL HISTORY: JOSE; Hyperkalemia COMPARISON: Renal Ultrasound-Complete dated 05/22/2019; Transvaginal Study Probe dated 05/31/2019; Abd omen Pelvis Wo Contrast dated 05/30/2019 FINDINGS: Both kidneys are normal in size, shape and echotexture. The right kidney measures 9.5 x 4.6 x 4.4 cm. No hydronephrosis, focal mass or perinephric fluid. The left kidney measures 9.7 x 5.5 x 3.5 cm. No hydronephrosis, focal mass or perinephric fluid. 8 mm cortical cyst is present left kidney. The urinary bladder could not be sonographically assessed due to bandaging overlying the pelvis. . IMPRESSION: Unremarkable renal sonogram.
[2019-06-08] MEDS: DULOXETINE 20 MG CAP PO SCH (10:55)
[2019-06-08] MEDS: SODIUM CHLORIDE 1 GM TAB PO SCH ×3 (10:56→21:40)
[2019-06-08] MEDS: MAGNESIUM OXIDE 400 MG TAB PO SCH ×2 (10:56→21:40)
[2019-06-08] MEDS: FLUCONAZOLE 100 MG TAB PO SCH (10:56)
[2019-06-08] MEDS: PANTOPRAZOLE 40MG TABLET PO SCH (10:56)
[2019-06-08] MEDS: glipiZIDE 5 MG TAB PO SCH ×2 (10:56→16:57)
[2019-06-08] MEDS: CIPROFLOXACIN HCL 500 MG TAB PO SCH ×2 (10:56→21:41)
[2019-06-08] MEDS: PROMOD 30 ML DOSE PO SCH ×2 (10:57→21:40)
[2019-06-08] MEDS: NYSTATIN 500,000 UNIT/5 ML UDC PO SCH ×2 (10:57→21:41)
[2019-06-08] MEDS: HEPARIN 5000 UNIT/ML 1 ML VIAL SQ SCH ×2 (10:58→21:40)
[2019-06-08] MEDS: NA CHLORIDE 0.9% 1,000 ML IV SCH ×3 (11:13→21:42)
--- NOTE | 2019-06-08 12:02 | CON ---
Date of Consultation: 06/08/2019 Reason For Consultation: Elevated BUN and creatinine, hyponatremia. 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 Patient recently admitted to the hospital with hyponatremia and acute kidney injury secondary to GI loss secondary from the colostomy, treated, recovered. The patient tr ansferred to the rehab. Apparently in the rehab, regular lab has been done and showed that the patie nt has significant hyponatremia with sodium down to 122, for that reason, patient was transferred to the acute care. The patient also had hyperkalemia with potassium 5.7. The patient denied any weakne ss. Patient fatigued in general. The patient was started on IV hydration. Sodium still not correct ed. The patient will undergo CT today. The patient denied any fever or chills. Past Medical History: 1.Diabetes. 2.Hypertension. 3.Hyperlipidemia. 4.Gastric tumor status post removal. Past Surgical History: 1.Cholecystectomy. 2.Basal cell carcinoma removal. 3.Hysterectomy. 4.Benign gastric tumor removal. Family History: Positive for diabetes and hypertension. Social History: Lives with . Denies smoking. Denies drinking. Denies drugs abuse. Review of Systems: Head and Neck: No red eye. No ear pain. GI: Has increase colostomy bag output. : No polyuria. No dysuria. No hematuria. CHAINSTITCH BINDER: No vaginal discharge. Respiratory: No shortness of breath. Cardiovascular: No chest pain. Endocrine: No polydipsia. Skin: No rash. Neuro: Generalized fatigue. Musculoskeletal: Generalized weakness. Physical Examination: General: When I saw the patient, the patient lying in bed comfortable, not in any distress. Vital Signs: Blood pressure 149/75, pulse of 90. Chest: Clear to auscultation. Heart: S1, S2. Regular. Abdomen: Soft, nontender. Colostomy. Extremities: No edema. Neuro: Not focal. Laboratory Data: Sodium 122, potassium 4.5, bicarb 28, BUN 36, creatinine 1, GFR of 50, calcium 8.4, phosphorus 3.1, magnesium 1.6. Current Medications: The patient on include Cipro, fluconazole, metronidazole, Nystatin, amlodipine 10 mg, carvedilol 25 b.i.d., breathing treatment, glipizide. Assessment And Plan: 1.Acute kidney injury secondary to prerenal. I am going to continue hydration. 2.Hyponatremia secondary to depletional, secondary to gastrointestinal loss. I am going to continue IV fluid. I will add for the patient salt tablet and we will send for urine electrolyte and serum o smolality and we will follow up the patient. 3.Deconditioning. Continue PT, OT. 4.Hypomagnesemia, status post supplement. KITTY/MODL Voice ID: [id number] Report ID: [id number]
--- NOTE | 2019-06-08 13:21 | P.PN ---
Subjective Date of Service: 06/08/19 Subjective: No new changes, No C/O voiced, Working w/ PT, Doing well Review of Systems 10-point ROS is otherwise unremarkable Physical Examination - Vital Signs Temperature: 97.3 F Blood Pressure: 97/64 Pulse: 77 Respirations: 17 Pulse Ox (%): 99 - Physical Exam General: Alert, In no apparent distress HEENT: Atraumatic, PERRLA, EOMI Neck: Supple, JVD not distended Respiratory: Clear to auscultation bilaterally, Normal air movement Cardiovascular: Regular rate/rhythm, Normal S1 S2 Gastrointestinal: Normal bowel sounds, No tenderness Musculoskeletal: No tenderness Integumentary: No rashes Neurological: Normal tone, Normal affect Lymphatics: No axilla or inguinal lymphadenopathy - Studies Laboratory Data (last 24 hrs) 06/08/19 06:07: Uric Acid 8.0 H 06/08/19 06:07: Sodium 122 L, Potassium 4.5, BUN 36 H, Creatinine 1.07, Glucose 114 H, Phosphorus 3.1, Magnesium 1.6 L, Total Bilirubin 0.4, AST 15, ALT 12, Alkaline Phosphatase 82 06/08/19 06:07: PT 10.9, INR 0.92, APTT 29.0 06/08/19 06:07: WBC 7.9 D, Hgb 12.1, Hct 35.6 L, Plt Count 489 H 06/08/19 05:00: WBC Cancelled, Hgb Cancelled, Hct Cancelled, Plt Count Cancelled 06/08/19 01:12: Sodium 120 L, Potassium 4.2, BUN 42 H, Creatinine 1.29, Glucose 169 H Medications List Reviewed: Yes Assessment And Plan - Current Problems (Diagnosis) (1) Hyponatremia Onset Date: 02/27/18 Current Visit: No Status: Resolved Plan: Pt with Chronic Hyponatremia. Na Yesterday was 120. Was transferred from [facility] for IV fluids -Na today is 122 -pt remains to be asymptomatic only c/o Generalized weakness. -Currently on IV fluids 100 ml/hr -Nephrology consulted. 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 Appreciated Reccs -Will need Reversal in 3 months -Will need replacement of B12 -Also on Cipro and flagyl 06/23 (3) Acute kidney injury Current Visit: No Status: Acute Plan: JOSE 2.2 to Dehydration -Nephrology consulted. 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
[2019-06-08] MEDS: CYANOCOBALAMIN 1,000 MCG TAB PO SCH (15:16)
[2019-06-08 15:37] LABS: Urine Appearance CLEAR; Urine Bilirubin NEGATIVE (NEG); Urine Blood NEGATIVE (NEG); Urine Color YELLOW; Urine Glucose TRACE (NEG); Urine Protein NEGATIVE (NEG); Urine Urobilinogen 0.2 mg/dL (0.2-1.0); Urine pH 5.5 (5.0-7.0)
[2019-06-08 15:50] LABS: Urine Protein/Creatinine Ratio 0.45 ratio (<0.15)
[2019-06-08 15:55] LABS: Urine Microscopic Reflex ORDER UMIC
[2019-06-08 16:11] LABS: Urine Bacteria <20 /HPF (<20); Urine RBC <5 /HPF (NONE SEEN)
[2019-06-08 16:12] LABS: Urine Amorphous Sediment TRACE /HPF (NONE SEEN); Urine Culture Reflex Order NOT NEEDED
--- NOTE | 2019-06-08 19:16 | P.HP ---
Certification for Inpatient Patient admitted to: Inpatient With expected LOS: >2 Midnights Patient will require the following post-hospital care: None Practitioner: I am a practitioner with admitting privileges, knowledge of patient current condition, hospital course, and medical plan of care. Services: Services provided to patient in accordance with Admission requirements found in Title 42 Section 412.3 of the Code of Federal Regulations Patient History Date of Service: 06/07/19 Reason for admission: Atrial fibrillation/ acute kidney injury/hyperkalemia History of Present Illness: Patient is a 73-year-old female who came in the hospital a couple of weeks prior. She had been treated in the medical floor and transfer to rehab. She has been poorly nourished and anorexic on the floor. She is not eating well. She has been weak and declining. In the emergency room her labs revealed acute kidney injury. She was hyperkalemic. She was started on IV fluids on rehab. Her repeat labs did not reveal any improvement. She was also having palpitations and EKG revealed atrial fibrillation. Patient was transferred to the floor. Nephrology was consulted and they recommend transfer as well. Will go ahead and the hydrate the patient aggressively. Repeat potassium level. We will also get cardiology consultation. Patient will be admitted to the hospital-to the medical-surgical floor-for further evaluation. Allergies No Known Allergies Allergy (Verified 06/03/19 05:01) Home Medications: Amlodipine Besylate [Norvasc] 10 mg PO DAILY WITH BREAKFAST 09/01/15 Metformin HCl [Glucophage] 1,000 mg PO BID 09/01/15 glipiZIDE [Glucotrol*] 5 mg PO DAILY 09/01/15 Carvedilol [Coreg*] 25 mg PO BID 02/26/18 Ciprofloxacin HCl [Cipro 500 MG Tablet] 500 mg PO BID #28 tab 05/31/19 Fluconazole [Diflucan] 400 mg PO DAILY #30 tablet 05/31/19 Spironolactone [Aldactone*] 25 mg PO DAILY #30 tab 05/31/19 metroNIDAZOLE [Flagyl] 500 mg PO Q8H #42 tablet 05/31/19 - Past Medical/Surgical History Has patient received pneumonia vaccine in the past: Yes Diabetic: Yes -: HTN -: Diabetes mellitus type 2, non insulin dependent -: Chronic Hearing loss -: Hysterectomy -: Cholecystectomy -: remington cataract sx -: 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 She is . - Family History Mother Medical History: Hypertension, Diabetes Sister Medical History: Hypertension, Diabetes Dad & Mom Medical History: Hypertension, Diabetes - Social History Smoking Status: Never smoker Alcohol use: No CD- Drugs: No Caffeine use: Yes Place of Residence: Home Review of Systems 10-point ROS is otherwise unremarkable Physical Examination - Vital Signs Temperature: 97.4 F Blood Pressure: 153/75 Pulse: 68 Respirations: 68 Pulse Ox (%): 100 - Physical Exam General: Alert, In no apparent distress, Oriented x3 HEENT: Atraumatic, PERRLA, Mucous membr. moist/pink, EOMI, Sclerae nonicteric Neck: Supple, 2+ carotid pulse no bruit, No LAD, Without JVD or thyroid abnormality Respiratory: Clear to auscultation bilaterally, Normal air movement Cardiovascular: Irregular heart rate/rhythm, Systolic murmur Gastrointestinal: Normal bowel sounds, Soft and benign, Non-distended, No tenderness Musculoskeletal: No clubbing, No swelling, No tenderness Integumentary: No rashes Neurological: Normal speech, Normal tone, Sensation intact, Cranial nerves 3-12 intact, Normal affect, Abnormal gait, Abnormal strength Lymphatics: No axilla or inguinal lymphadenopathy - Studies Laboratory Data (last 24 hrs) 06/08/19 06:07: Uric Acid 8.0 H 06/08/19 06:07: Sodium 122 L, Potassium 4.5, BUN 36 H, Creatinine 1.07, Glucose 114 H, Phosphorus 3.1, Magnesium 1.6 L, Total Bilirubin 0.4, AST 15, ALT 12, Alkaline Phosphatase 82 06/08/19 06:07: PT 10.9, INR 0.92, APTT 29.0 06/08/19 06:07: WBC 7.9 D, Hgb 12.1, Hct 35.6 L, Plt Count 489 H 06/08/19 05:00: WBC Cancelled, Hgb Cancelled, Hct Cancelled, Plt Count Cancelled 06/08/19 01:12: Sodium 120 L, Potassium 4.2, BUN 42 H, Creatinine 1.29, Glucose 169 H Assessment & Plan - Problems (Diagnosis) (1) Atrial fibrillation Current Visit: Yes Status: Acute (2) Hyperkalemia Current Visit: Yes Status: Acute (3) Acute kidney injury Current Visit: No Status: Acute (4) Anemia Current Visit: No Status: Acute Qualifiers: Anemia type: iron deficiency Iron deficiency anemia type: unspecified iron deficiency Qualified Code(s): D50.9 - Iron deficiency anemia, unspecified (5) Diabetes Onset Date: 09/12/15 Current Visit: No Status: Chronic Qualifiers: Diabetes mellitus type: type 2 Diabetes mellitus terminologist insulin use: without fdc use Diabetes mellitus complication status: without complication Qualified Code(s): E11.9 - Type 2 diabetes mellitus without complications (6) Essential hypertension Onset Date: 02/27/18 Current Visit: No Status: Chronic (7) Hyponatremia Onset Date: 02/27/18 Current Visit: No Status: Resolved - Plan Plan: 1. IV hydration 2. Repeat potassium and renal function 3. Cardiology consultation 4. Monitor rhythm on telemetry 5. Nephrology consultation 6. Monitor sodium level closely 7. GI and DVT prophylaxis Discharge Plan: Home Plan to discharge in: Greater than 2 days - Advance Directives Does patient have a Living Will: Yes Does patient have a Durable POA for Healthcare: Yes - Code Status/Comfort Care Code Status Assessed: Yes Code Status: Full Code Critical Care: No Time Spent Managing PTS Care (In Minutes): 45
[2019-06-08] MEDS: NEPRO SHAKE 237 ML CAN PO SCH (21:40)
[2019-06-08 22:34] LABS: Albumin 2.7 g/dL (3.4-5.0); BUN Blood Urea Nitrogen 31 mg/dL (7-18); Bicarbonate 25 mmol/L (21-32); CKMB Creatine Kinase MB < 1.0 ng/mL (0.3-3.6); Glucose Level 140 mg/dL (74-106); Phosphorus 2.6 mg/dL (2.5-4.9); Potassium 4.4 mmol/L (3.5-5.1); Sodium Level 125 mmol/L (136-145); Uric Acid 7.4 mg/dL (2.6-6.0)
[2019-06-09] MEDS: NA CHLORIDE 0.9% 1,000 ML IV SCH ×3 (04:00→10:00)
[2019-06-09] MEDS: PANTOPRAZOLE 40MG TABLET PO SCH (05:01)
[2019-06-09] MEDS: CARVEDILOL 25 MG TAB PO SCH ×2 (05:02→17:28)
[2019-06-09] MEDS: metroNIDAZOLE 500 MG TABLET PO SCH ×3 (05:02→21:42)
[2019-06-09 06:53] LABS: Albumin 2.7 g/dL (3.4-5.0); Phosphorus 2.1 mg/dL (2.5-4.9); Potassium 4.3 mmol/L (3.5-5.1)
[2019-06-09] MEDS: INSULIN -REGULAR HUMAN 50 UNIT/0.5 ML ML SQ SCH ×4 (07:30→21:00)
[2019-06-09] MEDS: glipiZIDE 5 MG TAB PO SCH ×2 (09:14→17:28)
[2019-06-09] MEDS: FLUCONAZOLE 100 MG TAB PO SCH (09:15)
[2019-06-09] MEDS: AMLODIPINE 10 MG TAB PO SCH (09:15)
[2019-06-09] MEDS: MAGNESIUM OXIDE 400 MG TAB PO SCH ×2 (09:15→21:43)
[2019-06-09] MEDS: CYANOCOBALAMIN 1,000 MCG TAB PO SCH (09:15)
[2019-06-09] MEDS: DULOXETINE 20 MG CAP PO SCH (09:16)
[2019-06-09] MEDS: HEPARIN 5000 UNIT/ML 1 ML VIAL SQ SCH ×2 (09:16→21:43)
[2019-06-09] MEDS: PROMOD 30 ML DOSE PO SCH ×2 (09:17→21:00)
[2019-06-09] MEDS: NEPRO SHAKE 237 ML CAN PO SCH ×2 (09:17→21:44)
[2019-06-09] MEDS: SODIUM CHLORIDE 1 GM TAB PO SCH ×3 (09:30→21:42)
[2019-06-09] MEDS: NYSTATIN 500,000 UNIT/5 ML UDC PO SCH ×2 (09:30→21:43)
[2019-06-09] MEDS: CIPROFLOXACIN HCL 500 MG TAB PO SCH ×2 (09:30→21:42)
--- NOTE | 2019-06-09 14:44 | CON ---
Additional Attending Physician: Dr. Cooper. Chief Complaint: Failure to thrive. History Of Present Illness: The patient was on rehab and just not eating much. She had evidence of malnutrition, kidney injury. Her creatinine had up to 1.29. Glomerular filtration rate dropped into the 40s. Now, it has gotten better. I am not sure if she has had any oral feeding that she chews, but she is on tube feeding now that seems to have made things much better. She is actually able to g et up and walk around again. The patient has been in atrial fibrillation for about a month. She has tolerated it without any elevations in heart rate. Her heart rate control is obtained using carvedi lol 25 b.i.d., it is doing well, keeping her blood pressure in good shape. She is receiving heparin 5000 units subcu twice a day, but I would recommend we change that to Eliquis 5 b.i.d. something that she could take when she goes home or Xarelto 20 once a day, either one would be fine. I think if we started that while she is here, we can be certain that she tolerates it, but I think that is a ivett r choice than heparin in her case. I will leave that decision up to Dr. Cooper, but I do not think we should be talking about trying to restore sinus rhythm, but rate control, long-term anticoagulation s eems to be the best plan at this point. AJAY Voice ID: [id number] Report ID: [id number]
--- NOTE | 2019-06-09 16:17 | PN ---
Date of Progress Note: 06/09/2019 Subjective: Patient doing well, ambulating. Physical Examination: Vital Signs: Blood pressure 140/75, pulse of 63. Chest: Clear to auscultation. Heart: S1-S2, regular. Abdomen: Soft nontender. Ileostomy. Extremities: No edema. Laboratory Data: H and H 12.1/35.6. Sodium 126, potassium 4.3, bicarb 22, BUN 25, creatinine 0.8, c alcium 7.8, phos 2.1, albumin is 2.7. Current Medications: The patient on its include ciprofloxacin and fluconazole, metronidazole 500 t.i .d., nystatin, amlodipine, carvedilol , glipizide, IV fluid tablet, tramadol. Assessment And Plan: 1.Acute kidney injury secondary to gastrointestinal loss, . 2.Hyponatremia secondary to depletional. We will continue salt tablet. I am going to decrease IV f luid to 50. 3.Hypophosphatemia. We will supplement. 4.Deconditioning. Continue PT, OT. 5.Hypertension, controlled, optimal. Continue current medication. ROGELIO Voice ID: [id number] Report ID: [id number]
--- NOTE | 2019-06-09 16:26 | P.PN ---
Subjective Date of Service: 06/09/19 Chief Complaint: Atrial fibrillation/ acute kidney injury/hyperkalemia Patient seen and examined at bedside with RN. Chart reviewed. Case discussed with nephrology. Patient doing better than before. No complaints to offer overnight. Has been working with physical therapy here in the hospital. Review of Systems 10-point ROS is otherwise unremarkable Physical Examination - Vital Signs Temperature: 97 F Blood Pressure: 120/71 Pulse: 71 Respirations: 16 Pulse Ox (%): 100 - Physical Exam General: Alert, In no apparent distress HEENT: Atraumatic, PERRLA, EOMI Neck: Supple, JVD not distended Respiratory: Clear to auscultation bilaterally, Normal air movement Cardiovascular: Regular rate/rhythm, Normal S1 S2 Gastrointestinal: Normal bowel sounds, No tenderness Musculoskeletal: No tenderness Integumentary: No rashes Neurological: Normal speech, Normal tone, Normal affect Lymphatics: No axilla or inguinal lymphadenopathy - Studies Laboratory Data (last 24 hrs) 06/09/19 06:30: Sodium 126 L, Potassium 4.3, BUN 25 H, Creatinine 0.83, Glucose 177 H, Phosphorus 2.1 L 06/08/19 22:00: Sodium 125 L, Potassium 4.4, BUN 31 H, Creatinine 0.93, Glucose 140 H, Uric Acid 7.4 H, Phosphorus 2.6 Medications List Reviewed: Yes Assessment And Plan - Current Problems (Diagnosis) (1) Hyponatremia Onset Date: 02/27/18 Current Visit: No Status: Resolved Plan: Pt with Chronic Hyponatremia.Was transferred from [facility] for IV fluids -Na today is 126 -pt remains to be asymptomatic only c/o Generalized weakness. -Currently on IV fluids 75 ml/hr -Nephrology consulted. 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 Appreciated Reccs -Will need Reversal in 3 months -Will need replacement of B12 -Also on Cipro and flagyl 07/24 (3) Acute kidney injury Current Visit: No Status: Acute Plan: JOSE 2.2 to Dehydration -Nephrology consulted. Appreciated Reccs -IV fluids -BUN/CR improved (4) Fungemia Current Visit: No Status: Acute Plan: Pt with Fungemia On last admission -Diflucan Started - 08/09 (5) Diabetes Onset Date: 09/12/15 Current Visit: No Status: Chronic Plan: Accu-Cheks and insulin sliding scale Qualifiers: Diabetes mellitus type: type 2 Diabetes mellitus jail insulin use: without termination clerk use Diabetes mellitus complication status: without complication Qualified Code(s): E11.9 - Type 2 diabetes mellitus without complications (6) Essential hypertension Onset Date: 02/27/18 Current Visit: No Status: Chronic Plan: Restarted on home medication - Plan Pending clinical improvement at this time Discharge Plan: Home Plan to discharge in: Greater than 2 days - Code Status/Comfort Care Code Status Assessed: Yes Critical Care: No
[2019-06-09] MEDS: MELATONIN 3 MG TABLET PO PRN (21:42)
[2019-06-09] MEDS: POTASS/SODIUM PHOSPHATE 1 PKT POWD.PACK PO SCH (21:44)
[2019-06-10 06:39] LABS: Phosphorus 1.9 mg/dL (2.5-4.9); Potassium 4.4 mmol/L (3.5-5.1)
[2019-06-10] MEDS: metroNIDAZOLE 500 MG TABLET PO SCH ×3 (06:48→22:00)
[2019-06-10] MEDS: PANTOPRAZOLE 40MG TABLET PO SCH (06:48)
[2019-06-10] MEDS: CARVEDILOL 25 MG TAB PO SCH ×2 (06:48→17:01)
[2019-06-10] MEDS: NA CHLORIDE 0.9% 1,000 ML IV SCH (06:50)
[2019-06-10] MEDS: INSULIN -REGULAR HUMAN 50 UNIT/0.5 ML ML SQ SCH ×4 (07:30→21:00)
[2019-06-10] MEDS: CIPROFLOXACIN HCL 500 MG TAB PO SCH ×2 (09:23→21:48)
[2019-06-10] MEDS: SODIUM CHLORIDE 1 GM TAB PO SCH ×3 (09:23→21:48)
[2019-06-10] MEDS: FLUCONAZOLE 100 MG TAB PO SCH (09:23)
[2019-06-10] MEDS: AMLODIPINE 10 MG TAB PO SCH (09:23)
[2019-06-10] MEDS: POTASS/SODIUM PHOSPHATE 1 PKT POWD.PACK PO SCH ×2 (09:24→21:47)
[2019-06-10] MEDS: DULOXETINE 20 MG CAP PO SCH (09:24)
[2019-06-10] MEDS: HEPARIN 5000 UNIT/ML 1 ML VIAL SQ SCH ×2 (09:24→21:49)
[2019-06-10] MEDS: CYANOCOBALAMIN 1,000 MCG TAB PO SCH (09:24)
[2019-06-10] MEDS: glipiZIDE 5 MG TAB PO SCH ×2 (09:24→17:02)
[2019-06-10] MEDS: NYSTATIN 500,000 UNIT/5 ML UDC PO SCH ×2 (09:24→21:47)
[2019-06-10] MEDS: MAGNESIUM OXIDE 400 MG TAB PO SCH ×2 (09:24→21:48)
[2019-06-10] MEDS: PROMOD 30 ML DOSE PO SCH ×2 (09:26→21:48)
[2019-06-10] MEDS: NEPRO SHAKE 237 ML CAN PO SCH ×2 (09:26→21:49)
--- NOTE | 2019-06-10 11:55 | P.PN ---
Subjective Date of Service: 06/10/19 Chief Complaint: Atrial fibrillation/ acute kidney injury/hyperkalemia Subjective: Improving Today Na improving to 130 BS better controlled Bp was high this morning , usually controlled , will cont to monitor for now and adjust meds if cont to be elevated ileostomy loss ~[id number] daily will add imodium Physical Examination - Vital Signs Temperature: 98 F Blood Pressure: 193/81 Pulse: 73 Respirations: 18 Pulse Ox (%): 98 - Physical Exam General: In no apparent distress, Oriented x3 HEENT: Atraumatic Neck: Supple, Without JVD or thyroid abnormality Respiratory: Clear to auscultation bilaterally, Normal air movement Cardiovascular: No edema, Regular rate/rhythm, Normal S1 S2, No rubs, No murmurs Gastrointestinal: Other (ileostomy bag ) - Studies Laboratory Data (last 24 hrs) 06/10/19 05:55: Sodium 130 L, Potassium 4.4, BUN 18, Creatinine 0.74, Glucose 117 H, Phosphorus 1.9 L Medications List Reviewed: Yes Assessment And Plan - Current Problems (Diagnosis) (1) S/P ileostomy Current Visit: Yes Status: Acute (2) Hyponatremia Onset Date: 02/27/18 Current Visit: No Status: Acute - Plan hypoosmolar Hyponatremia Due to excess loss from ilesotmy improving on IVF and Salt tablet will add imodium hypophosphatemia cont Phos supplement DM on insulin and glipizide Small bowel obstruction with perforated bowel and pelvic abscess S/P small bowel resection Cont Abx Septic shock on Mucafungin , cipro and flagyl HTN on Coreg and amlodipine will consider to add hydralazine if Bp cont to be elevated
--- NOTE | 2019-06-10 12:31 | P.PN ---
Subjective Date of Service: 06/10/19 Chief Complaint: Atrial fibrillation/ acute kidney injury/hyperkalemia Patient seen and examined at bedside with RN. Chart reviewed. Case discussed with nephrology. Patient doing better than before. No complaints to offer overnight. Has been working with physical therapy here in the hospital. Review of Systems 10-point ROS is otherwise unremarkable Physical Examination - Vital Signs Temperature: 98 F Blood Pressure: 193/81 Pulse: 73 Respirations: 18 Pulse Ox (%): 98 - Physical Exam General: Alert, In no apparent distress HEENT: Atraumatic, PERRLA, EOMI Neck: Supple, JVD not distended Respiratory: Clear to auscultation bilaterally, Normal air movement Cardiovascular: Regular rate/rhythm, Normal S1 S2 Gastrointestinal: Normal bowel sounds, Other (Patient with ileostomy bag) Musculoskeletal: No tenderness Integumentary: No rashes Neurological: Normal speech, Normal tone, Normal affect Lymphatics: No axilla or inguinal lymphadenopathy - Studies Laboratory Data (last 24 hrs) 06/10/19 05:55: Sodium 130 L, Potassium 4.4, BUN 18, Creatinine 0.74, Glucose 117 H, Phosphorus 1.9 L Medications List Reviewed: Yes Assessment And Plan - Current Problems (Diagnosis) (1) Hyponatremia Onset Date: 02/27/18 Current Visit: No Status: Acute Plan: Pt with Chronic Hyponatremia.Was transferred from Inpatient Rehab for IV fluids -Na today is 130, however pt remains to be asymptomatic -Currently on IV fluids 75 ml/hr and sodium tab -Nephrology consulted. Appreciated Reccs -patient also has increased ileostomy output which could be accounting for her sodium losses. Started on Imodium today. (2) S/P ileostomy Current Visit: Yes Status: Acute Plan: S/P ileostomy in May 2019 for Colon Perforation and abscess formation -General Surgery Consulted. Appreciated Reccs -Will need Reversal in 3 months -Will need replacement of B12 -Also on Cipro and flagyl 08/23 (3) Acute kidney injury Current Visit: No Status: Acute Plan: JOSE 2.2 to Dehydration -Nephrology consulted. Appreciated Reccs -IV fluids -BUN/CR improved (4) Fungemia Current Visit: No Status: Acute Plan: Pt with Fungemia On last admission -Diflucan Started - 09/08 (5) Diabetes Onset Date: 09/12/15 Current Visit: No Status: Chronic Plan: Accu-Cheks and insulin sliding scale Qualifiers: Diabetes mellitus type: type 2 Diabetes mellitus fdc insulin use: without fdc use Diabetes mellitus complication status: without complication Qualified Code(s): E11.9 - Type 2 diabetes mellitus without complications (6) Essential hypertension Onset Date: 02/27/18 Current Visit: No Status: Chronic Plan: Restarted on home medication - Plan Pending clinical improvement at this time Discharge Plan: Home Plan to discharge in: Greater than 2 days - Code Status/Comfort Care Code Status Assessed: Yes Critical Care: No
[2019-06-10] MEDS: LOPERAMIDE HCL 2 MG CAPSULE PO SCH (21:47)
[2019-06-11] MEDS: NA CHLORIDE 0.9% 1,000 ML IV SCH (02:00)
[2019-06-11] MEDS: PANTOPRAZOLE 40MG TABLET PO SCH (05:40)
[2019-06-11] MEDS: metroNIDAZOLE 500 MG TABLET PO SCH ×3 (05:41→22:01)
[2019-06-11] MEDS: CARVEDILOL 25 MG TAB PO SCH ×2 (05:41→17:19)
[2019-06-11 06:59] LABS: Albumin 3.1 g/dL (3.4-5.0); BUN Blood Urea Nitrogen 14 mg/dL (7-18); Bicarbonate 21 mmol/L (21-32); Glucose Level 139 mg/dL (74-106); Phosphorus 2.4 mg/dL (2.5-4.9); Potassium 4.2 mmol/L (3.5-5.1); Sodium Level 134 mmol/L (136-145)
[2019-06-11] MEDS: DULOXETINE 20 MG CAP PO SCH (08:55)
[2019-06-11] MEDS: MAGNESIUM OXIDE 400 MG TAB PO SCH ×2 (08:55→21:00)
[2019-06-11] MEDS: SODIUM CHLORIDE 1 GM TAB PO SCH ×3 (08:56→22:00)
[2019-06-11] MEDS: FLUCONAZOLE 100 MG TAB PO SCH (08:56)
[2019-06-11] MEDS: CIPROFLOXACIN HCL 500 MG TAB PO SCH ×2 (08:56→22:01)
[2019-06-11] MEDS: CYANOCOBALAMIN 1,000 MCG TAB PO SCH (08:56)
[2019-06-11] MEDS: LOPERAMIDE HCL 2 MG CAPSULE PO SCH ×3 (08:57→22:01)
[2019-06-11] MEDS: POTASS/SODIUM PHOSPHATE 1 PKT POWD.PACK PO SCH ×2 (08:57→22:04)
[2019-06-11] MEDS: NYSTATIN 500,000 UNIT/5 ML UDC PO SCH ×2 (08:57→22:02)
[2019-06-11] MEDS: AMLODIPINE 10 MG TAB PO SCH (08:57)
[2019-06-11] MEDS: glipiZIDE 5 MG TAB PO SCH ×2 (08:58→16:10)
[2019-06-11] MEDS: INSULIN -REGULAR HUMAN 50 UNIT/0.5 ML ML SQ SCH ×4 (08:58→21:00)
[2019-06-11] MEDS: HEPARIN 5000 UNIT/ML 1 ML VIAL SQ SCH ×2 (08:58→22:03)
[2019-06-11] MEDS: NEPRO SHAKE 237 ML CAN PO SCH ×2 (09:01→22:04)
[2019-06-11] MEDS: PROMOD 30 ML DOSE PO SCH ×2 (09:01→22:04)
[2019-06-11] MEDS ORDERED: OCTREOTIDE ACETATE 100 MCG/ML IV ONE (11:59)
--- NOTE | 2019-06-11 13:03 | P.PN ---
Subjective Date of Service: 06/11/19 Chief Complaint: Atrial fibrillation/ acute kidney injury/hyperkalemia Subjective: Improving Today Na improving to 134 Bp controoled today still have excessive loss from colostomy will increase imodium will increase salt tablet to 2gm tid Physical Examination - Vital Signs Temperature: 97.9 F Blood Pressure: 126/70 Pulse: 69 Respirations: 15 Pulse Ox (%): 99 - Physical Exam General: In no apparent distress, Oriented x3 HEENT: Atraumatic Neck: Supple, Without JVD or thyroid abnormality Respiratory: Clear to auscultation bilaterally, Normal air movement Cardiovascular: No edema, Regular rate/rhythm, Normal S1 S2, No gallops, No rubs , No murmurs Gastrointestinal: Other (ileostomy bag with liquid stool ) Musculoskeletal: No swelling - Studies Laboratory Data (last 24 hrs) 06/11/19 05:51: Sodium 134 L, Potassium 4.2, BUN 14, Creatinine 0.60, Glucose 139 H, Phosphorus 2.4 L Medications List Reviewed: Yes Assessment And Plan - Current Problems (Diagnosis) (1) S/P ileostomy Current Visit: Yes Status: Acute (2) Hyponatremia Onset Date: 02/27/18 Current Visit: No Status: Acute - Plan hypoosmolar Hyponatremia na today 134 Agree to hold iVF Due to excess loss from ilesotmy will increase imodium will increase salt tablet hypophosphatemia cont Phos supplement DM on insulin and glipizide Small bowel obstruction with perforated bowel and pelvic abscess S/P small bowel resection Cont Abx Septic shock on Mucafungin , cipro and flagyl HTN Controlled on Coreg and amlodipine
--- NOTE | 2019-06-11 14:45 | P.PN ---
Subjective Date of Service: 06/11/19 Chief Complaint: Atrial fibrillation/ acute kidney injury/hyperkalemia Patient seen and examined at bedside with RN. Chart reviewed. Case discussed with nephrology. Patient doing better than before. No complaints to offer overnight. Has been working with physical therapy here in the hospital. Review of Systems 10-point ROS is otherwise unremarkable Physical Examination - Vital Signs Temperature: 97.9 F Blood Pressure: 126/70 Pulse: 69 Respirations: 15 Pulse Ox (%): 99 - Physical Exam General: Alert, In no apparent distress HEENT: Atraumatic, PERRLA, EOMI Neck: Supple, JVD not distended Respiratory: Clear to auscultation bilaterally, Normal air movement Cardiovascular: Regular rate/rhythm, Normal S1 S2 Gastrointestinal: Normal bowel sounds, No tenderness Musculoskeletal: No tenderness Integumentary: No rashes Neurological: Normal speech, Normal tone, Normal affect Lymphatics: No axilla or inguinal lymphadenopathy - Studies Laboratory Data (last 24 hrs) 06/11/19 05:51: Sodium 134 L, Potassium 4.2, BUN 14, Creatinine 0.60, Glucose 139 H, Phosphorus 2.4 L Medications List Reviewed: Yes Assessment And Plan - Current Problems (Diagnosis) (1) Hyponatremia Onset Date: 02/27/18 Current Visit: No Status: Acute Plan: Pt with Chronic Hyponatremia.Was transferred from Inpatient Rehab for IV fluids -Na today is 132 now trending back -Nephrology consulted. Appreciated Reccs -patient also continues to have increased ileostomy output which could be accounting for her sodium losses. -Ken x 1 and Now on Imodium as well (2) S/P ileostomy Current Visit: Yes Status: Acute Plan: S/P ileostomy in May 2019 for Colon Perforation and abscess formation -General Surgery Consulted. Appreciated Reccs -Will need Reversal in 3 months -Will need replacement of B12 -Also on Cipro and flagyl 09/23 (3) Acute kidney injury Current Visit: No Status: Acute Plan: JOSE 2.2 to Dehydration -Nephrology consulted. Appreciated Reccs -IV fluids -BUN/CR improved (4) Fungemia Current Visit: No Status: Acute Plan: Pt with Fungemia On last admission -Diflucan Started - 10/09 (5) Diabetes Onset Date: 09/12/15 Current Visit: No Status: Chronic Plan: Accu-Cheks and insulin sliding scale Qualifiers: Diabetes mellitus type: type 2 Diabetes mellitus intermediate manager insulin use: without care home use Diabetes mellitus complication status: without complication Qualified Code(s): E11.9 - Type 2 diabetes mellitus without complications (6) Essential hypertension Onset Date: 02/27/18 Current Visit: No Status: Chronic Plan: Restarted on home medication - Plan Pending clinical improvement at this time Discharge Plan: Home Plan to discharge in: Greater than 2 days - Code Status/Comfort Care Code Status Assessed: Yes Critical Care: No
[2019-06-12] MEDS: PANTOPRAZOLE 40MG TABLET PO SCH (05:31)
[2019-06-12] MEDS: CARVEDILOL 25 MG TAB PO SCH ×2 (05:31→17:39)
[2019-06-12] MEDS: metroNIDAZOLE 500 MG TABLET PO SCH ×3 (05:32→21:24)
[2019-06-12 05:37] LABS: Albumin 3.1 g/dL (3.4-5.0); Phosphorus 2.3 mg/dL (2.5-4.9); Potassium 4.7 mmol/L (3.5-5.1)
[2019-06-12] MEDS: INSULIN -REGULAR HUMAN 50 UNIT/0.5 ML ML SQ SCH ×4 (07:30→20:49)
[2019-06-12] MEDS: DULOXETINE 20 MG CAP PO SCH (08:43)
[2019-06-12] MEDS: AMLODIPINE 10 MG TAB PO SCH (08:44)
[2019-06-12] MEDS: SODIUM CHLORIDE 1 GM TAB PO SCH ×3 (08:44→20:27)
[2019-06-12] MEDS: LOPERAMIDE HCL 2 MG CAPSULE PO SCH ×3 (08:45→20:28)
[2019-06-12] MEDS: CYANOCOBALAMIN 1,000 MCG TAB PO SCH (08:45)
[2019-06-12] MEDS: glipiZIDE 5 MG TAB PO SCH ×2 (08:45→17:39)
[2019-06-12] MEDS: CIPROFLOXACIN HCL 500 MG TAB PO SCH ×2 (08:45→20:27)
[2019-06-12] MEDS: NYSTATIN 500,000 UNIT/5 ML UDC PO SCH ×2 (08:45→20:27)
[2019-06-12] MEDS: HEPARIN 5000 UNIT/ML 1 ML VIAL SQ SCH ×2 (08:45→20:27)
[2019-06-12] MEDS: PROMOD 30 ML DOSE PO SCH ×2 (08:46→20:28)
[2019-06-12] MEDS: NEPRO SHAKE 237 ML CAN PO SCH ×2 (08:46→20:28)
[2019-06-12] MEDS: FLUCONAZOLE 100 MG TAB PO SCH (08:46)
[2019-06-12] MEDS: MAGNESIUM OXIDE 400 MG TAB PO SCH ×2 (08:47→20:28)
--- NOTE | 2019-06-12 11:47 | P.PN ---
Subjective Date of Service: 06/12/19 Chief Complaint: Atrial fibrillation/ acute kidney injury/hyperkalemia Patient seen and examined at bedside with RN. Chart reviewed. Case discussed with nephrology. Patient doing better than before. No complaints to offer overnight. Has been working with physical therapy here in the hospital. Still having large amount of output through her ileostomy bag. Sandostatin x1 yesterday. Review of Systems 10-point ROS is otherwise unremarkable Physical Examination - Vital Signs Temperature: 97.7 F Blood Pressure: 171/82 Pulse: 78 Respirations: 15 Pulse Ox (%): 100 - Physical Exam General: Alert, In no apparent distress HEENT: Atraumatic, PERRLA, EOMI Neck: Supple, JVD not distended Respiratory: Clear to auscultation bilaterally, Normal air movement Cardiovascular: Regular rate/rhythm, Normal S1 S2 Gastrointestinal: Normal bowel sounds, No tenderness Musculoskeletal: No tenderness Integumentary: No rashes Neurological: Normal speech, Normal tone, Normal affect Lymphatics: No axilla or inguinal lymphadenopathy - Studies Laboratory Data (last 24 hrs) 06/12/19 05:13: Sodium 133 L, Potassium 4.7, BUN 30 H, Creatinine 0.73, Glucose 139 H, Phosphorus 2.3 L Microbiology Data (last 24 hrs): 06/08/19 01:20 Clean Catch Urine [place] Count - Final BETWEEN 10,000 & 100,000 CFU/ML 06/08/19 01:20 Clean Catch Urine - Final Yersinia Ruckeri Medications List Reviewed: Yes Assessment And Plan - Current Problems (Diagnosis) (1) Hyponatremia Onset Date: 02/27/18 Current Visit: No Status: Acute Plan: Pt with Chronic Hyponatremia.Was transferred from Inpatient Rehab for IV fluids -Na today is 135 now trending back -Nephrology consulted. Appreciated Reccs -patient also continues to have increased ileostomy output which could be accounting for her sodium losses. -Ken x 2 and Now on Imodium as well (2) S/P ileostomy Current Visit: Yes Status: Acute Plan: S/P ileostomy in May 2019 for Colon Perforation and abscess formation -General Surgery Consulted. Appreciated Reccs -Will need Reversal in 3 months -Will need replacement of B12 -Also on Cipro and flagyl 10/23 (3) Acute kidney injury Current Visit: No Status: Acute Plan: JOSE 2.2 to Dehydration -Nephrology consulted. Appreciated Reccs -IV fluids -BUN/CR improved (4) Fungemia Current Visit: No Status: Acute Plan: Pt with Fungemia On last admission -Diflucan Started - 11/08 (5) Diabetes Onset Date: 09/12/15 Current Visit: No Status: Chronic Plan: Accu-Cheks and insulin sliding scale Qualifiers: Diabetes mellitus type: type 2 Diabetes mellitus intermediate school teacher insulin use: without intermediate school teacher use Diabetes mellitus complication status: without complication Qualified Code(s): E11.9 - Type 2 diabetes mellitus without complications (6) Essential hypertension Onset Date: 02/27/18 Current Visit: No Status: Chronic Plan: Restarted on home medication - Plan Pending clinical improvement at this time Discharge Plan: Home Plan to discharge in: Greater than 2 days - Code Status/Comfort Care Code Status Assessed: Yes Critical Care: No
[2019-06-12] MEDS ORDERED: OCTREOTIDE ACETATE 100 MCG/ML IVP ONE (12:00)
--- NOTE | 2019-06-12 13:38 | P.PN ---
Subjective Date of Service: 06/12/19 Chief Complaint: Atrial fibrillation/ acute kidney injury/hyperkalemia Subjective: Improving Today Na improving to 133 ileostomy loss decreased significantly Cont imodium and salt tablet S/P ocetrotide Physical Examination - Vital Signs Temperature: 97.7 F Blood Pressure: 171/82 Pulse: 78 Respirations: 15 Pulse Ox (%): 100 - Physical Exam General: In no apparent distress, Oriented x3 HEENT: Atraumatic Neck: Supple, Without JVD or thyroid abnormality Respiratory: Clear to auscultation bilaterally, Normal air movement Cardiovascular: No edema, Regular rate/rhythm, No gallops, No rubs, No murmurs Gastrointestinal: Other (ileostomy bag ) - Studies Laboratory Data (last 24 hrs) 06/12/19 05:13: Sodium 133 L, Potassium 4.7, BUN 30 H, Creatinine 0.73, Glucose 139 H, Phosphorus 2.3 L Microbiology Data (last 24 hrs): 06/08/19 01:20 Clean Catch Urine [place] Count - Final BETWEEN 10,000 & 100,000 CFU/ML 06/08/19 01:20 Clean Catch Urine - Final Yersinia Ruckeri Medications List Reviewed: Yes Assessment And Plan - Current Problems (Diagnosis) (1) S/P ileostomy Current Visit: Yes Status: Acute (2) Hyponatremia Onset Date: 02/27/18 Current Visit: No Status: Acute - Plan hypoosmolar Hyponatremia na today 133 Off IVF Due to excess loss from ilesotmy on imodium , salt tablet and octerotide hypophosphatemia cont Phos supplement DM on insulin and glipizide Small bowel obstruction with perforated bowel and pelvic abscess S/P small bowel resection Cont Abx Septic shock on Mucafungin , cipro and flagyl HTN Controlled on Coreg and amlodipine
[2019-06-13] MEDS: PANTOPRAZOLE 40MG TABLET PO SCH (05:00)
[2019-06-13] MEDS: metroNIDAZOLE 500 MG TABLET PO SCH ×3 (05:01→22:00)
[2019-06-13] MEDS: CARVEDILOL 25 MG TAB PO SCH ×2 (05:01→17:31)
[2019-06-13 06:09] LABS: Albumin 2.9 g/dL (3.4-5.0); Phosphorus 2.4 mg/dL (2.5-4.9); Potassium 4.1 mmol/L (3.5-5.1)
[2019-06-13] MEDS: INSULIN -REGULAR HUMAN 50 UNIT/0.5 ML ML SQ SCH ×4 (08:47→20:17)
[2019-06-13] MEDS: NEPRO SHAKE 237 ML CAN PO SCH ×2 (08:47→20:14)
[2019-06-13] MEDS: PROMOD 30 ML DOSE PO SCH ×2 (08:47→20:14)
[2019-06-13] MEDS: DULOXETINE 20 MG CAP PO SCH (08:48)
[2019-06-13] MEDS: FLUCONAZOLE 100 MG TAB PO SCH (08:48)
[2019-06-13] MEDS: HEPARIN 5000 UNIT/ML 1 ML VIAL SQ SCH ×2 (08:49→20:13)
[2019-06-13] MEDS: LOPERAMIDE HCL 2 MG CAPSULE PO SCH ×3 (08:49→23:45)
[2019-06-13] MEDS: glipiZIDE 5 MG TAB PO SCH ×2 (08:49→17:32)
[2019-06-13] MEDS: AMLODIPINE 10 MG TAB PO SCH (08:49)
[2019-06-13] MEDS: CYANOCOBALAMIN 1,000 MCG TAB PO SCH (08:49)
[2019-06-13] MEDS: MAGNESIUM OXIDE 400 MG TAB PO SCH ×2 (08:51→20:13)
[2019-06-13] MEDS: NYSTATIN 500,000 UNIT/5 ML UDC PO SCH ×2 (08:51→20:13)
[2019-06-13] MEDS: SODIUM CHLORIDE 1 GM TAB PO SCH ×3 (08:51→20:13)
[2019-06-13] MEDS: CIPROFLOXACIN HCL 500 MG TAB PO SCH ×2 (09:00→20:12)
--- NOTE | 2019-06-13 11:00 | P.PN ---
Subjective Date of Service: 06/13/19 Chief Complaint: Atrial fibrillation/ acute kidney injury/hyperkalemia Subjective: Improving Pt with small bowel obstruction, S/p ileostomy hyponatremia , with excessive loss from ileostomy Today Na improving to 133 ileostomy loss ~1300ml last 24hrs will increase imodium cont salt tablet plan to start PO ocetrotide will add lisniopril for Bp control Physical Examination - Vital Signs Temperature: 98.0 F Blood Pressure: 129/68 Pulse: 79 Respirations: 18 Pulse Ox (%): 100 - Physical Exam General: In no apparent distress, Oriented x3 HEENT: Atraumatic Neck: Supple, Without JVD or thyroid abnormality Respiratory: Clear to auscultation bilaterally, Normal air movement Cardiovascular: No edema, Regular rate/rhythm, Normal S1 S2 Gastrointestinal: Other (ileostomy bag ) Integumentary: No rashes - Studies Laboratory Data (last 24 hrs) 06/13/19 05:27: Sodium 133 L, Potassium 4.1, BUN 26 H, Creatinine 0.67, Glucose 147 H, Phosphorus 2.4 L Microbiology Data (last 24 hrs): 06/08/19 01:20 Clean Catch Urine [place] Count - Final BETWEEN 10,000 & 100,000 CFU/ML 06/08/19 01:20 Clean Catch Urine - Final Yersinia Ruckeri Medications List Reviewed: Yes Assessment And Plan - Current Problems (Diagnosis) (1) S/P ileostomy Current Visit: Yes Status: Acute (2) Hyponatremia Onset Date: 02/27/18 Current Visit: No Status: Acute - Plan hypoosmolar Hyponatremia na today 133 Off IVF Due to excess loss from ilesotmy on imodium , salt tablet and octerotide hypophosphatemia cont Phos supplement DM on insulin and glipizide Small bowel obstruction with perforated bowel and pelvic abscess S/P small bowel resection Cont Abx Septic shock on Mucafungin , cipro and flagyl HTN will add lisniopril on Coreg and amlodipine
--- NOTE | 2019-06-13 12:32 | P.PN ---
Subjective Date of Service: 06/13/19 Chief Complaint: Atrial fibrillation/ acute kidney injury/hyperkalemia Patient seen and examined at bedside with RN. Chart reviewed. Case discussed with nephrology. Patient doing better than before. No complaints to offer overnight. Has been working with physical therapy here in the hospital. Still having large amount of output through her ileostomy bag. Sandostatin x1 yesterday. Review of Systems 10-point ROS is otherwise unremarkable Physical Examination - Vital Signs Temperature: 98.0 F Blood Pressure: 129/68 Pulse: 79 Respirations: 18 Pulse Ox (%): 100 - Physical Exam General: Alert, In no apparent distress HEENT: Atraumatic, PERRLA, EOMI Neck: Supple, JVD not distended Respiratory: Clear to auscultation bilaterally, Normal air movement Cardiovascular: Regular rate/rhythm, Normal S1 S2 Gastrointestinal: Normal bowel sounds, No tenderness Musculoskeletal: No tenderness Integumentary: No rashes Neurological: Normal speech, Normal tone, Normal affect Lymphatics: No axilla or inguinal lymphadenopathy - Studies Laboratory Data (last 24 hrs) 06/13/19 05:27: Sodium 133 L, Potassium 4.1, BUN 26 H, Creatinine 0.67, Glucose 147 H, Phosphorus 2.4 L Microbiology Data (last 24 hrs): 06/08/19 01:20 Clean Catch Urine [place] Count - Final BETWEEN 10,000 & 100,000 CFU/ML 06/08/19 01:20 Clean Catch Urine - Final Yersinia Ruckeri Medications List Reviewed: Yes Assessment And Plan - Current Problems (Diagnosis) (1) Hyponatremia Onset Date: 02/27/18 Current Visit: No Status: Acute Plan: Pt with Chronic Hyponatremia.Was transferred from Inpatient Rehab for IV fluids -Na today is 135 now trending back -Nephrology consulted. Appreciated Reccs -patient also continues to have increased ileostomy output which could be accounting for her sodium losses. -Scheduled Ken and Imodium (2) S/P ileostomy Current Visit: Yes Status: Acute Plan: S/P ileostomy in May 2019 for Colon Perforation and abscess formation -General Surgery Consulted. Appreciated Reccs -Will need Reversal in 3 months -Will need replacement of B12 -Also on Cipro and flagyl / (3) Acute kidney injury Current Visit: No Status: Acute Plan: JOSE 2.2 to Dehydration -Nephrology consulted. Appreciated Reccs -IV fluids -BUN/CR improved (4) Fungemia Current Visit: No Status: Acute Plan: Pt with Fungemia On last admission -Diflucan Started - (5) Diabetes Onset Date: 09/12/15 Current Visit: No Status: Chronic Plan: Accu-Cheks and insulin sliding scale (6) Essential hypertension Onset Date: 02/27/18 Current Visit: No Status: Chronic Plan: Restarted on home medication - Plan Pending clinical improvement at this time Discharge Plan: Other Plan to discharge in: 24 Hours - Code Status/Comfort Care Code Status Assessed: Yes Critical Care: No
[2019-06-13] MEDS ORDERED: LOPERAMIDE HCL 2 MG CAPSULE PO SCH (13:00)
[2019-06-13] MEDS: LISINOPRIL 10 MG TAB PO SCH (13:06)
[2019-06-14] MEDS: CARVEDILOL 25 MG TAB PO SCH ×2 (05:11→17:28)
[2019-06-14] MEDS: metroNIDAZOLE 500 MG TABLET PO SCH ×3 (05:11→21:54)
[2019-06-14] MEDS: LOPERAMIDE HCL 2 MG CAPSULE PO SCH ×3 (05:11→17:28)
[2019-06-14] MEDS: PANTOPRAZOLE 40MG TABLET PO SCH (05:11)
[2019-06-14] MEDS: INSULIN -REGULAR HUMAN 50 UNIT/0.5 ML ML SQ SCH ×4 (07:30→21:00)
[2019-06-14] MEDS: NYSTATIN 500,000 UNIT/5 ML UDC PO SCH ×2 (08:53→21:54)
[2019-06-14] MEDS: DULOXETINE 20 MG CAP PO SCH (08:54)
[2019-06-14] MEDS: AMLODIPINE 10 MG TAB PO SCH (08:54)
[2019-06-14] MEDS: MAGNESIUM OXIDE 400 MG TAB PO SCH ×2 (08:54→21:54)
[2019-06-14] MEDS: glipiZIDE 5 MG TAB PO SCH ×2 (08:54→17:28)
[2019-06-14] MEDS: CIPROFLOXACIN HCL 500 MG TAB PO SCH ×2 (08:55→21:55)
[2019-06-14] MEDS: CYANOCOBALAMIN 1,000 MCG TAB PO SCH (08:55)
[2019-06-14] MEDS: FLUCONAZOLE 100 MG TAB PO SCH (08:55)
[2019-06-14] MEDS: LISINOPRIL 10 MG TAB PO SCH (08:55)
[2019-06-14] MEDS: HEPARIN 5000 UNIT/ML 1 ML VIAL SQ SCH ×2 (08:56→21:55)
[2019-06-14] MEDS: SODIUM CHLORIDE 1 GM TAB PO SCH ×3 (08:56→21:00)
[2019-06-14] MEDS: PROMOD 30 ML DOSE PO SCH ×2 (08:59→21:56)
[2019-06-14] MEDS: NEPRO SHAKE 237 ML CAN PO SCH ×2 (08:59→21:55)
--- NOTE | 2019-06-14 10:50 | P.PN ---
Subjective Date of Service: 06/14/19 Chief Complaint: Atrial fibrillation/ acute kidney injury/hyperkalemia Patient seen and examined at bedside with RN. Chart reviewed. Case discussed with nephrology. Patient doing better than before. No complaints to offer overnight. Has been working with physical therapy here in the hospital. Still having large amount of output through her ileostomy bag. Imodium has been increased to 4 times a day now Review of Systems 10-point ROS is otherwise unremarkable Physical Examination - Vital Signs Temperature: 97.3 F Blood Pressure: 118/67 Pulse: 65 Respirations: 18 Pulse Ox (%): 99 - Physical Exam General: Alert, In no apparent distress HEENT: Atraumatic, PERRLA, EOMI Neck: Supple, JVD not distended Respiratory: Clear to auscultation bilaterally, Normal air movement Cardiovascular: Regular rate/rhythm, Normal S1 S2 Gastrointestinal: Normal bowel sounds, Other (Ileostomy bag in place output overnight was 17 under CC), Tenderness Musculoskeletal: No tenderness Integumentary: No rashes Neurological: Normal speech, Normal tone, Normal affect Lymphatics: No axilla or inguinal lymphadenopathy - Studies Medications List Reviewed: Yes Assessment And Plan - Current Problems (Diagnosis) (1) Hyponatremia Onset Date: 02/27/18 Current Visit: No Status: Acute Plan: Pt with Chronic Hyponatremia.Was transferred from Inpatient Rehab for IV fluids -Na today is 135 stable now -Nephrology consulted. Appreciated Reccs -patient also continues to have increased ileostomy output which could be accounting for her sodium losses. -Scheduled Ken and Imodium. Imodium was increased yesterday to every 6 hr. This had mild improvement in her output. -will monitor patient for next 24 hr. Anticipate discharge in next 24-48 hr (2) S/P ileostomy Current Visit: Yes Status: Acute Plan: S/P ileostomy in May 2019 for Colon Perforation and abscess formation -General Surgery Consulted. Appreciated Reccs -Will need Reversal in 3 months -Will need replacement of B12 -Also on Cipro and flagyl (3) Acute kidney injury Current Visit: No Status: Acute Plan: JOSE 2.2 to Dehydration -Nephrology consulted. 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 Case management has been consulted to arrange for home walker along with bedside commode. We will monitor for ileostomy output over the next 24 hr. If patient is showing continuous improvement will discharge home on a new dose of Imodium Discharge Plan: Home Plan to discharge in: Greater than 2 days - Code Status/Comfort Care Code Status Assessed: Yes Critical Care: No
[2019-06-14 21:01] LABS: Magnesium 1.6 mg/dL (1.8-2.4); Phosphorus 3.5 mg/dL (2.5-4.9); Potassium 4.7 mmol/L (3.5-5.1)
[2019-06-14] MEDS ORDERED: MAGNESIUM SULFATE 1 gm IVPB 1 GM/100 ML BAG IV ONE (21:04)
[2019-06-14] MEDS: MELATONIN 3 MG TABLET PO PRN (21:55)
[2019-06-15] MEDS: LOPERAMIDE HCL 2 MG CAPSULE PO SCH ×3 (00:31→12:00)
--- NOTE | 2019-06-15 01:38 | PN ---
Date of Progress Note: 06/14/2019 History Of Present Illness: Acute kidney injury secondary to nonoliguric ATN. The patient also was found to have hyponatremia and recently diuretic dose was adjusted. Sodium level gradually improving to 133. The patient is on sodium chloride tablets. Blood pressure is controlled. Lisinopril was recently added. Review of Systems: The patient is feeling better. Denies PND, orthopnea. Physical Examination: Lungs: Clear to auscultation bilaterally. Heart: S1, S2. Abdomen: Soft, benign. Extremities: No edema. Laboratory Work: Hemoglobin 12.1, WBC 7.9, platelet count 489,000. Sodium 133 , potassium 4.1, chloride 104, CO2 of 20, BUN 26, creatinine 0.67, glucose 147, phosphorus 2.4. Impression And Plan: 1. Acute on chronic kidney injury. Renal function is improving. There is persistent prerenal azotemia. 2. Hyponatremia. The patient is on sodium chloride tablets. Plan is to check electrolytes panel and adjust treatment accordingly. 3. Hypertension. Blood pressure controlled. Continue current treatment. Lisinopril was added and blood pressure is improving. Plan is to wean off sodium chloride tablets according to lab results. GUILLERMINA/FAUSTO Voice ID: [id number] Report ID: [id number] BRIAN
[2019-06-15 04:00] VITALS: O2SAT 100
[2019-06-15] MEDS: PANTOPRAZOLE 40MG TABLET PO SCH (05:31)
[2019-06-15] MEDS: metroNIDAZOLE 500 MG TABLET PO SCH (05:31)
[2019-06-15] MEDS: CARVEDILOL 25 MG TAB PO SCH (05:32)
[2019-06-15] MEDS: INSULIN -REGULAR HUMAN 50 UNIT/0.5 ML ML SQ SCH ×2 (07:30→11:30)
[2019-06-15] MEDS ORDERED: SODIUM CHLORIDE 1 GM TAB PO SCH (08:00)
[2019-06-15] MEDS: PROMOD 30 ML DOSE PO SCH (09:00)
[2019-06-15] MEDS: MAGNESIUM OXIDE 400 MG TAB PO SCH (09:00)
[2019-06-15] MEDS: NEPRO SHAKE 237 ML CAN PO SCH (09:00)
[2019-06-15] MEDS: HEPARIN 5000 UNIT/ML 1 ML VIAL SQ SCH (09:06)
[2019-06-15] MEDS: DULOXETINE 20 MG CAP PO SCH (09:20)
[2019-06-15] MEDS: CYANOCOBALAMIN 1,000 MCG TAB PO SCH (09:21)
[2019-06-15] MEDS: CIPROFLOXACIN HCL 500 MG TAB PO SCH (09:21)
[2019-06-15] MEDS: FLUCONAZOLE 100 MG TAB PO SCH (09:21)
[2019-06-15] MEDS: AMLODIPINE 10 MG TAB PO SCH (09:21)
[2019-06-15] MEDS: glipiZIDE 5 MG TAB PO SCH (09:21)
[2019-06-15] MEDS: LISINOPRIL 10 MG TAB PO SCH (09:21)
[2019-06-15] MEDS: NYSTATIN 500,000 UNIT/5 ML UDC PO SCH (09:22)
--- NOTE | 2019-06-15 11:44 | P.DS ---
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 She had been treated in the medical floor and transfer to rehab. She has been poorly nourished and anorexic on the floor. She is not eating well. She has been weak and declining. In the emergency room her labs revealed acute kidney injury. She was hyperkalemic. She was started on IV fluids on rehab. Her repeat labs did not reveal any improvement. She was also having palpitations and EKG revealed atrial fibrillation. Patient was transferred to the floor. Nephrology was consulted and they recommend transfer as well. Will go ahead and the hydrate the patient aggressively. Repeat potassium level. We will also get cardiology consultation. Patient will be admitted to the hospital-to the medical-surgical floor-for further evaluation. Hospital Course: Overall during the hospital stay patient remained stable Patient was initially admitted to the hospital for hyponatremia was transferred from the [facility] inpatient rehab floor where she was transferred after having an extensive hospital stay. Patient was started on IV fluids here in the hospital. Patient's hyponatremia was most likely secondary to GI losses through her ileostomy bag. Patient was initially also placed on Imodium and was given Sandostatin x2 here in the hospital. Patient had marked improvement in her symptoms. Was ambulating with PT and working with occupational therapy as well. Was eating okay was having output of greater than 1500 through her ileostomy bag. At that time patient was referred over for discharge home however supplies for ileostomy walker and bedside commode were not arranged until today and this patient will be discharged home today under stable condition. Vital Signs/Physical Exam: Temp Pulse Resp BP Pulse Ox 97.8 F 53 18 99/59 L 100 06/15/19 08:00 06/15/19 08:00 06/15/19 08:00 06/15/19 08:00 06/15/19 08:00 General: Alert, In no apparent distress HEENT: Atraumatic, PERRLA, EOMI Neck: Supple, JVD not distended Respiratory: Clear to auscultation bilaterally, Normal air movement Cardiovascular: Regular rate/rhythm, Normal S1 S2 Gastrointestinal: Normal bowel sounds, No tenderness Musculoskeletal: No tenderness Integumentary: No rashes Neurological: Normal speech, Normal tone, Normal affect Lymphatics: No axilla or inguinal lymphadenopathy Laboratory Data at Discharge: WBC 7.9 K/uL (4.3-10.9) D 06/08/19 06:07 Hgb 12.1 g/dL (12.0-15.0) 06/08/19 06:07 Hct 35.6 % (36.0-45.0) L 06/08/19 06:07 Plt Count 489 K/uL (152-406) H 06/08/19 06:07 PT 10.9 SECONDS (9.5-12.5) 06/08/19 06:07 INR 0.92 06/08/19 06:07 APTT 29.0 SECONDS (24.3-36.9) 06/08/19 06:07 Sodium 135 mmol/L (136-145) L 06/14/19 20:37 Potassium 4.7 mmol/L (3.5-5.1) 06/14/19 20:37 BUN 29 mg/dL (7-18) H 06/14/19 20:37 Creatinine 0.85 mg/dL (0.55-1.3) 06/14/19 20:37 Glucose 160 mg/dL (74-106) H 06/14/19 20:37 Uric Acid 7.4 mg/dL (2.6-6.0) H 06/08/19 22:00 Phosphorus 3.5 mg/dL (2.5-4.9) 06/14/19 20:37 Magnesium 1.8 mg/dL (1.8-2.4) 06/15/19 08:12 Total Bilirubin 0.4 mg/dL (0.2-1.0) 06/08/19 06:07 AST 15 U/L (15-37) 06/08/19 06:07 ALT 12 U/L (12-78) 06/08/19 06:07 Alkaline Phosphatase 82 U/L (45-117) 06/08/19 06:07 Home Medications: Amlodipine Besylate [Norvasc] 10 mg PO DAILY WITH BREAKFAST 09/01/15 Metformin HCl [Glucophage] 1,000 mg PO BID 09/01/15 glipiZIDE [Glucotrol*] 5 mg PO DAILY 09/01/15 Carvedilol [Coreg*] 25 mg PO BID 02/26/18 Spironolactone [Aldactone*] 25 mg PO DAILY #30 tab 05/31/19 Cyanocobalamin [Vitamin B-12*] 1,000 mcg PO DAILY #30 tab 06/15/19 Fluconazole [Diflucan] 400 mg PO DAILY #30 tablet 06/15/19 Lisinopril [Prinivil*] 10 mg PO DAILY #30 tab 06/15/19 Loperamide [Imodium*] 2 mg PO Q6HR #40 cap 06/15/19 Nepro Shake [Nepro*] 237 ml PO BID #12 can 06/15/19 Pantoprazole [Protonix Tab*] 40 mg PO DAILYAC #30 tab 06/15/19 Sodium Chloride Tab [Sodium Chloride*] 1 gm PO BIDWM #60 tab 06/15/19 New Medications: Loperamide [Imodium*] 2 mg PO Q6HR #40 cap Cyanocobalamin [Vitamin B-12*] 1,000 mcg PO DAILY #30 tab Fluconazole [Diflucan] 400 mg PO DAILY #30 tablet Lisinopril [Prinivil*] 10 mg PO DAILY #30 tab Nepro Shake [Nepro*] 237 ml PO BID #12 can Pantoprazole [Protonix Tab*] 40 mg PO DAILYAC #30 tab Sodium Chloride Tab [Sodium Chloride*] 1 gm PO BIDWM #60 tab Diet: Regular Activity: Ad aleksander Followup: Le Triana MD [ACTIVE - CAN ADMIT] - 1 Week Efraín Castro MD [ACTIVE - CAN ADMIT] - 1 Week
[2019-06-15 12:54] VITALS: BP 105/56; TEMP 97.3
--- NOTE | 2019-06-15 15:49 | PN ---
Date of Progress Note: 06/15/2019 Subjective: Patient was admitted with hyponatremia, acute kidney injury, recovered. Physical Examination: Vital Signs: When I saw the patient, blood pressure of 100/59, pulse of 53. Chest: Clear to auscultation. Heart: S1 and S2 regular. Abdomen: Soft, nontender. Ileostomy. Extremities: No edema. Laboratory Data: H and H of 12.1/35.6. Sodium of 135, potassium 4.7, bicarb 19, BUN 29, creatinine 0.8, calcium 8.6, phosphorus 3.5, magnesium 1.6. Current Medications: The patient on include salt tablet 1 g b.i.d., Cipro, fluconazole, metronidazol e, albuterol, lisinopril 10 mg, carvedilol 25, amlodipine 10 mg daily. Assessment And Plan: 1.Acute kidney injury secondary to prerenal, recovered, resolved. 2.Hyponatremia secondary to depletional, prerenal, with GI loss secondary to ileostomy. We are jen g to continue the patient on salt tablet. The salt tablet is going to be discontinued when the ileos clau gets reversed. For the time being, we will continue current treatment. The patient is going to need followup in 2 to 3 weeks. 3.Hypertension, controlled, currently on the lower side. I am going to discontinue amlodipine and w e will follow up. The patient cleared from the renal standpoint for discharge planning to follow up in the office in 2 to 3 weeks with chemistry. ROGELIO Voice ID: [id number] Report ID: [id number]
== END 2019-06-15 12:23 | disposition home health service (06) | DRG 683 ==
LOC: 2ND 21:00
PROVIDERS: ADMIT Hospitalist; ATTEND Family Medicine
DX: N17.9 Acute kidney failure, unspecified (principal); E87.1 Hypo-osmolality and hyponatremia; E46 Unspecified protein-calorie malnutrition; E86.0 Dehydration; I48.91 Unspecified atrial fibrillation; E87.5 Hyperkalemia; D50.9 Iron deficiency anemia, unspecified; E11.40 Type 2 diabetes mellitus with diabetic neuropathy, unspecified; I10 Essential (primary) hypertension; Z93.2 Ileostomy status; E78.5 Hyperlipidemia, unspecified; E83.42 Hypomagnesemia; E83.39 Other disorders of phosphorus metabolism; H91.90 Unspecified hearing loss, unspecified ear; Z68.20 Body mass index [BMI] 20.0-20.9, adult
CPT/HCPCS: 36415; 76770; 80048; 80053; 80069; 81003; 81015; 82553; 82570; 82962; 83735; 83930; 83935; 84100; 84132; 84156; 84300; 84550; 85025; 85610; 85730; 87077; 87086; 87088; 87186; 94760; 97112; 97116; 97161; 97530; J1644; J2354; J3475; J7030

== ENCOUNTER 2019-08-27 08:58 | Inpatient (IN) | payer OTHER ==
[2019-08-24 13:22] LABS: Absolute Lymphocytes (CBC) 2.2 K/uL (0.7-4.9); Basophils % 1.1 % (0-1.3); Lymphocytes % 33.3 % (15.3-44.8); MPV 8.2 fL (7.6-11.3); RBC Red Blood Cell Count 3.79 M/uL (3.86-4.86)
[2019-08-24 13:49] LABS: Potassium 4.1 mmol/L (3.5-5.1)
[2019-08-27] MEDS ORDERED: METRONIDAZOLE 500mg IVPB 500 MG/100 ML BAG IV ONE (09:19)
[2019-08-27] MEDS ORDERED: NA CHLORIDE 0.9% 1,000 ML ONE (09:19)
[2019-08-27] MEDS ORDERED: CEFOXITIN/SWI 1gm 1 GM/10 ML SYR ONE (09:20)
[2019-08-27] MEDS ORDERED: PROPOFOL 200 MG/20 ML VIAL IV ONE (09:48)
[2019-08-27] MEDS ORDERED: ROCURONIUM 50 MG/5 ML VIAL IV ONE (09:48)
[2019-08-27] MEDS ORDERED: FENTANYL CITR 100 MCG/2 ML ONE (09:48)
[2019-08-27] MEDS ORDERED: MIDAZOLAM HCL 2 MG/2 ML INJ ONE (09:49)
[2019-08-27] MEDS ORDERED: LIDOCAINE 1% MPF 5 ML VIAL ONE (09:49)
[2019-08-27] MEDS ORDERED: WATER FOR INJ,STERILE 20 ML ONE (09:49)
[2019-08-27] MEDS ORDERED: ONDANSETRON 4 MG/2 ML VIAL ONE (09:51)
[2019-08-27] MEDS ORDERED: Phenylephrine HCl 10 MG/ML 1 ML VIAL ONE (10:51)
[2019-08-27] MEDS ORDERED: NEOSTIGMINE 1 MG/ML -10 ML VIAL ONE (10:56)
[2019-08-27] MEDS ORDERED: GLYCOPYRROLATE 0.2 MG/ML SYR ONE ×2 (10:57→12:35)
[2019-08-27] MEDS ORDERED: EPHEDRINE SULF 50 MG/ML VIAL ONE (11:16)
[2019-08-27] MEDS ORDERED: Ringers Lactate 1,000 ML IV ONE (12:23)
[2019-08-27] MEDS ORDERED: ONDANSETRON 4 MG/2 ML VIAL IV PRN (13:29)
[2019-08-27] MEDS ORDERED: D5.45NS W/KCL 20MEQ 1,000 ML IV SCH (14:00)
[2019-08-27] MEDS: HYDROMORPHONE HCL 1 MG/ML INJ IV PRN ×4 (14:25→23:39)
[2019-08-27] MEDS ORDERED: NA CHLORIDE 0.9% 500 ML IV ONE (16:00)
--- NOTE | 2019-08-27 16:34 | P.CNS ---
Date of Consult: 08/27/19 Reason for Consult: Medical Mgmt Requesting Physician: Efraín Castro Chief Complaint: Ileostomy Reversal History of Present Illness: This is a 73-year-old female with significant past medical history of hypertension, atrial fibrillation, diabetes, recent bowel resection in May of 2019 who is now admitted to the hospital after having ileostomy reversal done here by general surgery. Patient presented to the outpatient surgery center for reversal of her ileostomy and was admitted to the ICU post surgical intervention for close monitoring. Medical team was consulted for medical management of this patient. Of note patient does have extensive history of hypernatremia along with hypokalemia due to high functioning ileostomy bag. Patient also had a bowel resection done in May of 2019 after she was found to have small bowel obstruction. During that time her stay was complicated secondary to hyponatremia along with sepsis as well. Patient was eventually discharged to inpatient rehab however was readmitted due to hyponatremia at that time. Patient then was discharged back to inpatient rehab and to the [facility] facility and has been having recurrent hospitalization due to hyponatremia and other electrolyte abnormality. Patient stated that before the ileostomy reversal surgery she was doing well overall ambulatory at bedside. Denies having any fever chills nausea vomiting abdominal pain or any other associated symptoms. Allergies No Known Allergies Allergy (Verified 08/24/19 13:01) Home Medications: Amlodipine Besylate [Norvasc] 10 mg PO DAILY WITH BREAKFAST 09/01/15 glipiZIDE [Glucotrol*] 5 mg PO DAILY 09/01/15 Carvedilol [Coreg*] 25 mg PO BID 02/26/18 Cyanocobalamin [Vitamin B-12*] 1,000 mcg PO DAILY #30 tab 06/15/19 Pantoprazole [Protonix Tab*] 40 mg PO DAILYAC #30 tab 06/15/19 Ferrous Sulfate [Ferrous Sulfate*] 325 mg PO DAILY #30 tab 06/28/19 Loperamide [Imodium*] 2 mg PO Q6H #120 cap 06/28/19 Na Bicarb Tab [Sodium Bicarb 325 MG Tab*] 1,300 mg PO TID #360 tab 06/28/19 Sodium Chloride Tab [Sodium Chloride*] 10 mg PO BIDWM 08/24/19 - Past Medical/Surgical History Diabetic: Yes -: HTN -: Diabetes mellitus type 2, non insulin dependent -: Chronic Hearing loss -: Bowel Resection with Ileostomy bag -: Hyponatremia -: Hysterectomy -: Cholecystectomy -: [place] cataract sx -: 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 She is . - Family History Mother Medical History: Hypertension, Diabetes Sister Medical History: Hypertension, Diabetes Dad & Mom Medical History: Hypertension, Diabetes - Social History Smoking Status: Never smoker Counseled patient to stop smoking for: more than 10 minutes Smoking therapy provided: Yes Patient receptive to therapy: Yes Alcohol use: No CD- Drugs: No Caffeine use: Yes Place of Residence: Home Review of Systems 10-point ROS is otherwise unremarkable Physical Examination Temp Pulse Resp BP Pulse Ox 97.7 F 64 12 133/52 L 95 08/27/19 13:56 08/27/19 15:00 08/27/19 15:00 08/27/19 15:00 08/27/19 15:00 General: Alert, Oriented x3, Mild distress HEENT: Atraumatic Neck: Supple Respiratory: Normal air movement, Expiratory wheezes, Inspiratory wheezes Cardiovascular: Regular rate/rhythm, Normal S1 S2 Gastrointestinal: Normal bowel sounds, Hypoactive, Non-distended, Tenderness Musculoskeletal: No tenderness Integumentary: No rashes Neurological: Normal speech, Normal strength at 5/5 x4 extr, Normal tone Lymphatics: No axilla or inguinal lymphadenopathy - Problems (1) Status post reversal of ileostomy Current Visit: Yes Status: Acute Plan: Patient is currently status post reversal of ileostomy -status post reversal of ileostomy POD 0 -currently on IV antibiotics will continue that here in the hospital -general surgery is primary on the case -pain management with Dilaudid -will monitor patient closely (2) Atrial fibrillation Current Visit: No Status: Chronic Plan: Patient with history of chronic atrial fibrillation -currently taking Coreg however not taking Eliquis as it was expensive. -will restart Coreg here in the hospital and put patient on Lovenox at this time for DVT prophylaxis -Will get cardiology if needed. Qualifiers: Atrial fibrillation type: longstanding persistent Qualified Code(s): I48.11 - Longstanding persistent atrial fibrillation (3) Diabetes Onset Date: 09/12/15 Current Visit: No Status: Chronic Plan: Will place patient on insulin sliding scale Qualifiers: Diabetes mellitus type: type 2 Diabetes mellitus intermediate insulin use: without intermediate use Diabetes mellitus complication detail: with chronic kidney disease Chronic kidney disease stage: stage 3 (moderate) (4) Essential hypertension Onset Date: 02/27/18 Current Visit: No Status: Chronic Plan: Stable at this time. Will restart home medication Critical Care: Yes
[2019-08-27] MEDS: METRONIDAZOLE 500mg IVPB 500 MG/100 ML BAG IV SCH ×2 (17:53→23:37)
[2019-08-27] MEDS: CEFOXITIN/SWI 1gm 1 GM/10 ML SYR IV SCH ×2 (17:53→23:39)
[2019-08-27] MEDS: CARVEDILOL 25 MG TAB PO SCH (20:31)
[2019-08-27] MEDS: SODIUM BICARB 325 MG TAB PO SCH (20:32)
[2019-08-27 21:44] LABS: Absolute Lymphocytes (CBC) 1.2 K/uL (0.7-4.9); Basophils % 0.5 % (0-1.3); Hematocrit 34.8 % (36.0-45.0); Lymphocytes % 10.7 % (15.3-44.8); MPV 7.8 fL (7.6-11.3); RBC Red Blood Cell Count 3.85 M/uL (3.86-4.86)
[2019-08-27 21:57] LABS: Potassium 3.8 mmol/L (3.5-5.1)
[2019-08-27] MEDS ORDERED: D5 0.9 NS 1,000 ML IV SCH (22:00)
[2019-08-27] MEDS: D5NS KCL 20MEQ 20 MEQ/1,000 ML BAG IV SCH (23:45)
--- NOTE | 2019-08-28 00:47 | OP ---
Date of Procedure: 08/27/2019 Surgeon: Efraín Castro MD Clinical Data Specialist: CONCHIS Miranda. Preoperative Diagnosis: Ileostomy, status post small bowel resection for perforation following the s mall bowel obstruction. Postoperative Diagnosis: Ileostomy, status post small bowel resection for perforation following the small bowel obstruction with extensive adhesion. Procedure: Diagnostic laparoscopy, lysis of adhesion, reversal ileostomy, ileocecectomy. Estimated Blood Loss: Minimal. Specimen: Ileocecectomy. Finding: As above. Anesthesia: General. Complications: None. Patient tolerated the procedure, in stable condition, taken to Recovery in good general condition. Procedure In Detail: The patient was brought to the OR and placed in supine position. General anest hesia begun. Patient was prepped and draped in usual sterile fashion. Then, Marcaine 0.5% was infil trated where laparoscopic incision was made, 1 cm right upper quadrant incision was made. Subcutaneo us tissue divided. The fascia was identified and divided. #1 Vicryl stay suture was placed. Perito arun cavity was entered with sharp and blunt dissection. A 12 mm trocar was placed into the peritone al cavity under direct vision. Pneumoperitoneum was established. There were adhesions in the midlin e, which were taken down with the ligature. There were adhesions in the pelvis which were taken down with ligature as well until everything was freed and then the laparoscopic instruments were removed. The ileostomy was closed with 2-0 silk running suture. Small midline incision was made and subcuta neous tissue divided and then the right colon was mobilized and brought into the wound, ileostomy was freed from the skin and then brought into the wound. Ileostomy was excised, sent to Pathology, and ileocecectomy was done. There was a lot of hard stool in the area and lot of scarring and I do not f eel it would make a good place for anastomosis, so this was excised and then antimesenteric standard of anastomosis between the ileum and the ascending colon was done with the Endo-DEYANIRA stapling device. TA-60 was used to close the open end. Bleeding on the anastomotic site was controlled with cautery and then the entire abdomen was irrigated. The mesentery defect was closed with 3-0 chromic and Amni oFill was used on the anastomotic side and the ileostomy fascial defect was closed with running #1 Pr olene suture. A midline incision was closed with #2 Nylon running suture. AmnioFill was placed on b oth wounds, wound irrigated, bleeding controlled with cautery. Stay sutures were tied to each other by fascial defect. The right upper quadrant and then 3-0 chromic was used to reapproximate subcutane ous tissue. Staple used to close the skin. Sterile dressing applied. Patient awakened, taken to Re covery in good general condition. ANGIE/MODLeisa Voice ID: [id number] Report ID: [id number]
[2019-08-28] MEDS: HYDROMORPHONE HCL 1 MG/ML INJ IV PRN ×4 (04:19→19:22)
[2019-08-28] MEDS: METRONIDAZOLE 500mg IVPB 500 MG/100 ML BAG IV SCH (05:09)
[2019-08-28] MEDS: CEFOXITIN/SWI 1gm 1 GM/10 ML SYR IV SCH (05:11)
[2019-08-28 06:25] LABS: Absolute Lymphocytes (CBC) 1.2 K/uL (0.7-4.9); Basophils % 0.5 % (0-1.3); Hematocrit 33.9 % (36.0-45.0); Lymphocytes % 11.6 % (15.3-44.8); MPV 8.6 fL (7.6-11.3)
[2019-08-28 06:28] LABS: Potassium 3.8 mmol/L (3.5-5.1)
[2019-08-28] MEDS ORDERED: PANTOPRAZOLE 40MG TABLET PO SCH (06:30)
[2019-08-28 06:39] LABS: Magnesium 1.5 mg/dL (1.8-2.4)
[2019-08-28] MEDS ORDERED: NA CHLORIDE 0.9% 500 ML IV ONE (08:35)
[2019-08-28] MEDS: SODIUM CHLORIDE 1 GM TAB PO SCH ×2 (08:45→17:14)
[2019-08-28] MEDS: CARVEDILOL 25 MG TAB PO SCH ×2 (08:45→21:07)
[2019-08-28] MEDS: AMLODIPINE 10 MG TAB PO SCH (08:47)
[2019-08-28] MEDS: D5NS KCL 20MEQ 20 MEQ/1,000 ML BAG IV SCH ×3 (08:47→22:51)
[2019-08-28] MEDS: SODIUM CHLORIDE 0.9% 10ML INJ IV SCH (08:48)
[2019-08-28] MEDS: PANTOPRAZOLE 40 MG INJ IV SCH (08:48)
[2019-08-28] MEDS: CYANOCOBALAMIN 1,000 MCG TAB PO SCH (09:00)
[2019-08-28] MEDS ORDERED: ENOXAPARIN 60 MG/0.6 ML SQ SCH (09:00)
[2019-08-28] MEDS: SODIUM BICARB 325 MG TAB PO SCH ×3 (09:00→21:00)
[2019-08-28] MEDS ORDERED: ENOXAPARIN 40 MG/0.4 ML SQ SCH (09:00)
[2019-08-28] MEDS: FERROUS SULFATE 325 MG TAB PO SCH (09:00)
--- NOTE | 2019-08-28 10:12 | PN ---
Date of Progress Note: 08/28/2019 Subjective: Patient is awake, alert, complaining of incisional pain. Urine output has been marginal . Vital signs are stable. Afebrile. Laboratory Data: Reviewed. Electrolytes reviewed, being replaced. Physical Examination: Abdomen: Hypoactive bowel sounds. Dressing clean, dry and intact. Assessment: Status post diagnostic laparotomy, lysis of adhesions, exploratory laparotomy, reversal of colostomy and ileocecectomy. Recommendations: Continue n.p.o. NG tube, IV fluid, IV antibiotics. Fluid boluses as ordered. Enco urage ambulation with physical therapy. Incentive spirometry and DVT prophylaxis. Keep patient in I CU today. /MODL Voice ID: [id number] Report ID: [id number]
[2019-08-28] MEDS ORDERED: GLUCAGON 1 MG/VIAL IM PRN (18:17)
[2019-08-28] MEDS ORDERED: D50W 25 GM/50 ML SYRINGE IV PRN (18:17)
[2019-08-28] MEDS ORDERED: NA CHLORIDE 0.9% 500 ML IV PRN (18:59)
[2019-08-28] MEDS: HYDROMORPHONE/PCA 0 / ML SYR IV PRN (19:49)
[2019-08-28] MEDS: INSULIN -REGULAR HUMAN 50 UNIT/0.5 ML ML SQ SCH (21:08)
[2019-08-28] MEDS ORDERED: Magnesium Sulfate 2gm IVPB 2 G/50 ML BAG IV ONE (23:00)
[2019-08-29] MEDS: HYDROMORPHONE HCL 1 MG/ML INJ IV PRN ×2 (00:37→21:27)
[2019-08-29 05:18] LABS: Absolute Lymphocytes (CBC) 1.1 K/uL (0.7-4.9); Basophils % 0.6 % (0-1.3); Hematocrit 31.7 % (36.0-45.0); Lymphocytes % 7.9 % (15.3-44.8); MPV 8.7 fL (7.6-11.3); RBC Red Blood Cell Count 3.45 M/uL (3.86-4.86)
[2019-08-29 05:40] LABS: Magnesium 2.2 mg/dL (1.8-2.4); Phosphorus 1.4 mg/dL (2.5-4.9)
[2019-08-29] MEDS ORDERED: POTASSIUM PHOS IN 0.9 % NACL 15 MMOL/250 ML BAG IV ONE (06:00)
[2019-08-29] MEDS: D5NS KCL 20MEQ 20 MEQ/1,000 ML BAG IV SCH ×3 (06:27→15:27)
[2019-08-29] MEDS: INSULIN -REGULAR HUMAN 50 UNIT/0.5 ML ML SQ SCH ×4 (08:57→21:00)
[2019-08-29] MEDS: ENOXAPARIN 60 MG/0.6 ML SQ SCH (08:58)
[2019-08-29] MEDS: SODIUM CHLORIDE 1 GM TAB PO SCH ×2 (08:58→17:54)
[2019-08-29] MEDS: CARVEDILOL 25 MG TAB PO SCH ×2 (08:59→21:15)
[2019-08-29] MEDS: PANTOPRAZOLE 40 MG INJ IV SCH (08:59)
[2019-08-29] MEDS: AMLODIPINE 10 MG TAB PO SCH (08:59)
[2019-08-29] MEDS: CYANOCOBALAMIN 1,000 MCG TAB PO SCH (09:00)
[2019-08-29] MEDS: SODIUM CHLORIDE 0.9% 10ML INJ IV SCH (09:00)
[2019-08-29] MEDS: SODIUM BICARB 325 MG TAB PO SCH (09:00)
[2019-08-29] MEDS: FERROUS SULFATE 325 MG TAB PO SCH (09:00)
--- NOTE | 2019-08-29 11:15 | PN ---
Date of Progress Note: 08/29/2019 Subjective: Patient is awake, alert, some incisional pain. Did get out of bed yesterday with physic al therapy. Objective: Vital Signs: Stable. She is currently afebrile. She is awake, alert. Abdomen: Soft, slightly distended. Positive bowel sounds. Wound is clean, dry, and intact with min imal serous drainage. No evidence of infection. Laboratory Data: Shows white count to be 13.3 with a slight left shift. Chemistry reviewed. Electr olytes being replaced. Assessment: Status post diagnostic laparoscopy, lysis of adhesions, exploratory laparotomy, and reve rsal of colostomy with ileocecectomy. Recommendations: N.p.o., NG tube, IV fluids. Continue Orellana at this time as her urine output last n ight was marginal, had to get 1 fluid bolus. Check electrolytes and correct as needed. Patient clin ically stable. Slowly improving. /MODL Voice ID: [id number] Report ID: [id number]
[2019-08-29] MEDS ORDERED: CEFOXITIN SODIUM 1 GM/VIAL IVPB SCH (12:00)
[2019-08-29] MEDS: METRONIDAZOLE 500mg IVPB 500 MG/100 ML BAG IV SCH ×2 (13:21→17:54)
[2019-08-29] MEDS: CEFOXITIN/SWI 1gm 1 GM/10 ML SYR IVP SCH ×2 (13:21→17:54)
[2019-08-30] MEDS: D5NS KCL 20MEQ 20 MEQ/1,000 ML BAG IV SCH (00:16)
[2019-08-30] MEDS: CEFOXITIN/SWI 1gm 1 GM/10 ML SYR IVP SCH ×4 (00:17→17:08)
[2019-08-30] MEDS: METRONIDAZOLE 500mg IVPB 500 MG/100 ML BAG IV SCH ×4 (00:17→17:08)
[2019-08-30] MEDS: HYDROMORPHONE HCL 1 MG/ML INJ IV PRN (04:08)
[2019-08-30 04:57] LABS: Basophils % 0.7 % (0-1.3); Hematocrit 28.5 % (36.0-45.0); Lymphocytes % 9.6 % (15.3-44.8); MPV 9.4 fL (7.6-11.3)
[2019-08-30 05:14] LABS: Phosphorus 1.2 mg/dL (2.5-4.9); Potassium 4.3 mmol/L (3.5-5.1)
[2019-08-30] MEDS: IPRATROPIUM BROM 0.5MG/2.5ML NEB PRN ×2 (05:15→13:00)
[2019-08-30] MEDS: ALBUTEROL 2.5 MG/3 ML NEB SOL NEB PRN ×2 (05:15→13:00)
[2019-08-30] MEDS: HYDROMORPHONE/PCA 0 / ML SYR IV PRN (05:23)
[2019-08-30] MEDS ORDERED: POTASSIUM PHOS IN 0.9 % NACL 15 MMOL/250 ML BAG IV ONE (06:22)
[2019-08-30 06:29] VITALS: BMI 25.2
[2019-08-30] MEDS: INSULIN -REGULAR HUMAN 50 UNIT/0.5 ML ML SQ SCH ×4 (07:30→20:57)
--- NOTE | 2019-08-30 08:20 | RAD REPORT ---
EXAM DESCRIPTION: [facility] Single View08/30/2019 5:17 am CLINICAL HISTORY: Shortness of breath COMPARISON: August 28 FINDINGS: The lungs appear clear of acute infiltrate. The heart is mildly enlarged. A nasogastric tube and PICC line remain in place
[2019-08-30] MEDS: PANTOPRAZOLE 40 MG INJ IV SCH (08:35)
[2019-08-30] MEDS: ENOXAPARIN 60 MG/0.6 ML SQ SCH (08:35)
[2019-08-30] MEDS: CARVEDILOL 25 MG TAB PO SCH ×2 (08:35→20:57)
[2019-08-30] MEDS: AMLODIPINE 10 MG TAB PO SCH (08:36)
[2019-08-30] MEDS: SODIUM CHLORIDE 0.9% 10ML INJ IV SCH (08:38)
[2019-08-30] MEDS ORDERED: D5NS KCL 20MEQ 20 MEQ/1,000 ML BAG IV SCH (12:00)
--- NOTE | 2019-08-30 12:12 | RAD REPORT ---
EXAM DESCRIPTION: RAD - Chest Single View - 08/27/2019 9:55 pm CLINICAL HISTORY: 73 years Female crackles on the lungs ,low urine output TECHNIQUE: One view of the chest. COMPARISON: 05/15/2019 FINDINGS: Nasogastric tube in good position. Epigastric skin xochitl new since the prior exam Again seen is mild enlargement of the cardiac silhouette with aortic atherosclerosis. The lungs are clear without focal consolidation, effusion, or pneumothorax. No acute osseous abnormal ities. IMPRESSION: Nasogastric tube in good position. No acute cardiopulmonary abnormalities. Stable cardiomegaly. Electronically signed by: Sabi Newsome MD 08/27/2019 11:37 PM CDT Due to temporary technical issues with the PACS/Fluency reporting system, reports are being signed by the in house radiologist as a courtesy to ensure prompt reporting. The interpreting radiologist is f ully responsible for the content of the report.
--- NOTE | 2019-08-30 12:13 | RAD REPORT ---
EXAM DESCRIPTION: RAD - Chest Single View - 08/28/2019 11:01 pm CLINICAL HISTORY: S/P PICC insertion COMPARISON: 08/27/2019. TECHNIQUE: XR CHEST 1 VIEW 08/28/2019 10:35 PM CDT FINDINGS: Cardiac silhouette is normal in size. Lungs are clear without consolidation, atelectasis, mass or edema. There is no pleural effusion. There is no pneumothorax. There are no acute osseous fin dings. NG tube is unchanged. Right PICC line tip is in the mid to lower SVC. IMPRESSION: Appropriate position of right PICC line. Electronically signed by: Patricio Barakat MD 08/28/2019 11:10 PM CDT Due to temporary technical issues with the PACS/Fluency reporting system, reports are being signed by the in house radiologist as a courtesy to ensure prompt reporting. The interpreting radiologist is f ully responsible for the content of the report.
[2019-08-30] MEDS: D5W 1,000 ML with POTASSIUM CL 20 MEQ IV SCH ×2 (12:58)
--- NOTE | 2019-08-30 13:53 | P.PN ---
Subjective Date of Service: 08/30/19 Chief Complaint: Ileostomy Reversal Subjective: No new changes, Tolerating diet, Improving, Working w/ PT, Doing well Review of Systems 10-point ROS is otherwise unremarkable Physical Examination - Vital Signs Temperature: 98.8 F Blood Pressure: 152/69 Pulse: 84 Respirations: 14 Pulse Ox (%): 100 - Physical Exam General: Alert, In no apparent distress HEENT: Atraumatic, PERRLA, EOMI Neck: Supple, JVD not distended Respiratory: Clear to auscultation bilaterally, Normal air movement Cardiovascular: Regular rate/rhythm, Normal S1 S2 Gastrointestinal: Normal bowel sounds, Soft and benign, Non-distended, No tenderness Musculoskeletal: No tenderness Integumentary: No rashes Neurological: Normal speech, Normal tone, Normal affect Lymphatics: No axilla or inguinal lymphadenopathy - Studies Laboratory Data (last 24 hrs) 08/30/19 04:33: Sodium 146 H, Potassium 4.3, BUN 13, Creatinine 0.91, Glucose 222 H, Phosphorus 1.2 L, Magnesium 2.0 08/30/19 04:33: WBC 10.7 D, Hgb 9.6 L, Hct 28.5 L, Plt Count 164 Medications List Reviewed: Yes Assessment And Plan - Current Problems (Diagnosis) (1) Status post reversal of ileostomy Current Visit: Yes Status: Acute Plan: Patient is currently status post reversal of ileostomy -status post reversal of ileostomy POD 3 -currently on IV antibiotics will continue that here in the hospital -general surgery is primary on the case -pain management with Dilaudid -will monitor patient closely (2) Atrial fibrillation Current Visit: No Status: Chronic Plan: Patient with history of chronic atrial fibrillation -currently taking Coreg however not taking Eliquis as it was expensive. -Restarted on Coreg and Lovenox now Qualifiers: Atrial fibrillation type: longstanding persistent Qualified Code(s): I48.11 - Longstanding persistent atrial fibrillation (3) Diabetes Onset Date: 09/12/15 Current Visit: No Status: Chronic Plan: Will place patient on insulin sliding scale Qualifiers: Diabetes mellitus type: type 2 Diabetes mellitus chcf insulin use: without chcf use Diabetes mellitus complication detail: with chronic kidney disease Chronic kidney disease stage: stage 3 (moderate) (4) Essential hypertension Onset Date: 02/27/18 Current Visit: No Status: Chronic Plan: Stable at this time. Will restart home medication Discharge Plan: Home Plan to discharge in: Greater than 2 days - Code Status/Comfort Care Code Status Assessed: Yes Critical Care: No
--- NOTE | 2019-08-30 14:19 | PN ---
Date of Progress Note: 08/30/2019 Subjective: Patient is awake, alert, passing gas. Objective: Vital Signs: Stable. Afebrile. Abdomen: Soft, nondistended, nontender. Positive bowel sounds. Laboratory Data: Reviewed. White count is normal. Assessment: Status post reversal ileostomy, ileocecectomy. Recommendation: Discontinue Orellana. Clamp the NG tube. Start clear liquids. Transfer to the floor. Patient clinically doing well. /MODL Voice ID: [id number] Report ID: [id number]
[2019-08-31] MEDS: CEFOXITIN/SWI 1gm 1 GM/10 ML SYR IVP SCH ×5 (00:05→23:53)
[2019-08-31] MEDS: METRONIDAZOLE 500mg IVPB 500 MG/100 ML BAG IV SCH ×5 (00:05→23:52)
[2019-08-31 05:23] LABS: Absolute Lymphocytes (CBC) 0.9 K/uL (0.7-4.9); Basophils % 0.8 % (0-1.3); MPV 9.2 fL (7.6-11.3); RBC Red Blood Cell Count 3.22 M/uL (3.86-4.86)
[2019-08-31 05:32] LABS: Magnesium 1.7 mg/dL (1.8-2.4); Phosphorus 1.1 mg/dL (2.5-4.9); Potassium 3.1 mmol/L (3.5-5.1)
[2019-08-31] MEDS ORDERED: MAGNESIUM SULFATE 1 gm IVPB 1 GM/100 ML BAG IV ONE (06:44)
[2019-08-31] MEDS: INSULIN -REGULAR HUMAN 50 UNIT/0.5 ML ML SQ SCH ×4 (07:30→21:00)
[2019-08-31] MEDS: ENOXAPARIN 60 MG/0.6 ML SQ SCH (08:11)
[2019-08-31] MEDS: CARVEDILOL 25 MG TAB PO SCH ×2 (08:11→21:03)
[2019-08-31] MEDS: KCL 20 MEQ/100 mL IVPB 20 MEQ/100 ML BAG IV SCH ×2 (08:12→11:06)
[2019-08-31] MEDS: PANTOPRAZOLE 40 MG INJ IV SCH (08:12)
[2019-08-31] MEDS: AMLODIPINE 10 MG TAB PO SCH (08:12)
[2019-08-31] MEDS: SODIUM CHLORIDE 0.9% 10ML INJ IV SCH (08:13)
[2019-08-31] MEDS: IPRATROPIUM BROM 0.5MG/2.5ML NEB PRN (08:15)
[2019-08-31] MEDS: ALBUTEROL 2.5 MG/3 ML NEB SOL NEB PRN (08:15)
[2019-08-31] MEDS: FERROUS SULFATE 325 MG TAB PO SCH (09:00)
[2019-08-31] MEDS: D5W 1,000 ML with POTASSIUM CL 20 MEQ IV SCH ×2 (09:12)
[2019-08-31] MEDS: SODIUM BICARB 325 MG TAB PO SCH ×3 (10:19→21:03)
[2019-08-31] MEDS: CYANOCOBALAMIN 1,000 MCG TAB PO SCH (10:19)
[2019-08-31] MEDS ORDERED: HYDROCODONE/APAP 5/325 MG TAB PO PRN (10:52)
--- NOTE | 2019-08-31 11:27 | P.PN ---
Subjective Date of Service: 08/31/19 Chief Complaint: Ileostomy Reversal Subjective: Tolerating diet, Improving, Working w/ PT, Doing well Review of Systems 10-point ROS is otherwise unremarkable Physical Examination - Vital Signs Temperature: 98.3 F Blood Pressure: 168/82 Pulse: 86 Respirations: 18 Pulse Ox (%): 100 - Physical Exam General: Alert, In no apparent distress HEENT: Atraumatic, PERRLA, EOMI Neck: Supple, JVD not distended Respiratory: Clear to auscultation bilaterally, Normal air movement Cardiovascular: Regular rate/rhythm, Normal S1 S2 Gastrointestinal: Normal bowel sounds, No tenderness Musculoskeletal: No tenderness Integumentary: No rashes Neurological: Normal speech, Normal tone, Normal affect Lymphatics: No axilla or inguinal lymphadenopathy - Studies Laboratory Data (last 24 hrs) 08/31/19 05:05: Sodium 139, Potassium 3.1 L, BUN 9, Creatinine 0.69, Glucose 188 H, Phosphorus 1.1 L, Magnesium 1.7 L 08/31/19 05:05: WBC 8.5 D, Hgb 9.9 L, Hct 29.0 L, Plt Count 197 D Medications List Reviewed: Yes Assessment And Plan - Current Problems (Diagnosis) (1) Status post reversal of ileostomy Current Visit: Yes Status: Acute Plan: Patient is currently status post reversal of ileostomy -status post reversal of ileostomy POD 4 -currently on IV antibiotics will continue that here in the hospital -general surgery is primary on the case -pain management with [place] now -DC NG tube and IV fluids today. Advance to CLD -will monitor patient closely (2) Atrial fibrillation Current Visit: No Status: Chronic Plan: Patient with history of chronic atrial fibrillation -currently taking Coreg however not taking Eliquis as it was expensive. -Restarted on Coreg and Lovenox now Qualifiers: Atrial fibrillation type: longstanding persistent Qualified Code(s): I48.11 - Longstanding persistent atrial fibrillation (3) Diabetes Onset Date: 09/12/15 Current Visit: No Status: Chronic Plan: Will place patient on insulin sliding scale Qualifiers: Diabetes mellitus type: type 2 Diabetes mellitus oysterman insulin use: without oysterman use Diabetes mellitus complication detail: with chronic kidney disease Chronic kidney disease stage: stage 3 (moderate) (4) Essential hypertension Onset Date: 02/27/18 Current Visit: No Status: Chronic Plan: Stable at this time. Will restart home medication
--- NOTE | 2019-08-31 12:09 | EKG ---
Test Date: 2019-08-31 Test Time: 08:08:06 Cath Laboratory Technician: JARRELL MEASUREMENT RESULTS: Intervals: Rate: 109 [place]: QRSD: 82 QT: 312 QTc: 420 [place]: P: WI: QRS: 65 T: -85 INTERPRETIVE STATEMENTS: Atrial fibrillation with rapid ventricular response with premature ventricular or aberrantly conducted complexes Low voltage QRS T wave abnormality, consider inferior ischemia or digitalis effect Abnormal ECG Compared to ECG 06/22/2019 17:30:29 Ventricular premature complex(es) now present Low QRS voltage now present T-wave abnormality now present Possible ischemia now present Electronically Signed On 08-31-19 12:08:47 CDT by Ez Burks
--- NOTE | 2019-08-31 15:42 | PN ---
Subjective: Patient is awake, alert. No complaint. No nausea or vomiting. Tolerating clear liquid s. Having bowel movements. Objective: Vital Signs: Stable. Afebrile. Abdomen: Benign. Laboratory Data: Reviewed. Assessment: Status post takedown of ileostomy with ileocecectomy. Recommendations: Discontinue NG tube. Advance diet. Discontinue IV fluids. 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 Enco urage ambulation, incentive spirometry. Discharge in 24 to 48 hours. Patient clinically doing well. /MODL Voice ID: [id number] Report ID: [id number]
[2019-08-31] MEDS ORDERED: POTASS/SODIUM PHOSPHATE 1 PKT POWD.PACK PO SCH (20:00)
[2019-08-31] MEDS: POTASS/SODIUM PHOSPHATE 1 PKT POWD.PACK PO SCH ×3 (21:03→22:59)
[2019-09-01] MEDS ORDERED: POTASSIUM CL SA 10 MEQ TAB PO ONE ×3 (01:13→16:00)
[2019-09-01] MEDS: METRONIDAZOLE 500mg IVPB 500 MG/100 ML BAG IV SCH ×4 (05:01→23:55)
[2019-09-01] MEDS: CEFOXITIN/SWI 1gm 1 GM/10 ML SYR IVP SCH ×4 (05:01→23:53)
[2019-09-01 06:37] LABS: Magnesium 1.7 mg/dL (1.8-2.4); Phosphorus 1.8 mg/dL (2.5-4.9); Potassium 3.1 mmol/L (3.5-5.1)
[2019-09-01] MEDS: INSULIN -REGULAR HUMAN 50 UNIT/0.5 ML ML SQ SCH ×4 (07:30→20:44)
[2019-09-01] MEDS ORDERED: MAGNESIUM SULFATE 1 gm IVPB 1 GM/100 ML BAG IV ONE (08:00)
[2019-09-01] MEDS ORDERED: NA CHLORIDE 0.9% 250 ML ONE (09:20)
[2019-09-01] MEDS: AMLODIPINE 10 MG TAB PO SCH (09:23)
[2019-09-01] MEDS: FERROUS SULFATE 325 MG TAB PO SCH (09:24)
[2019-09-01] MEDS: CARVEDILOL 25 MG TAB PO SCH ×2 (09:24→20:42)
[2019-09-01] MEDS: CYANOCOBALAMIN 1,000 MCG TAB PO SCH (09:24)
[2019-09-01] MEDS: POTASS/SODIUM PHOSPHATE 1 PKT POWD.PACK PO SCH ×3 (09:26→12:39)
[2019-09-01] MEDS: SODIUM BICARB 325 MG TAB PO SCH ×3 (09:26→20:42)
[2019-09-01] MEDS: ENOXAPARIN 60 MG/0.6 ML SQ SCH (09:26)
[2019-09-01] MEDS: PANTOPRAZOLE 40 MG INJ IV SCH (09:26)
[2019-09-01] MEDS: SODIUM CHLORIDE 0.9% 10ML INJ IV SCH (09:27)
[2019-09-01] MEDS ORDERED: PHENOL 1.4% ORAL SPRAY 180ML TOP PRN (11:01)
--- NOTE | 2019-09-01 11:41 | P.PN ---
Subjective Date of Service: 09/01/19 Chief Complaint: Ileostomy Reversal Subjective: No C/O voiced, Ambulating, Working w/ PT, Doing well Review of Systems 10-point ROS is otherwise unremarkable Physical Examination - Vital Signs Temperature: 98.6 F Blood Pressure: 171/83 Pulse: 103 Respirations: 18 Pulse Ox (%): 98 - Physical Exam General: Alert, In no apparent distress HEENT: Atraumatic, PERRLA, EOMI Neck: Supple, JVD not distended Respiratory: Clear to auscultation bilaterally, Normal air movement Cardiovascular: Regular rate/rhythm, Normal S1 S2 Gastrointestinal: Normal bowel sounds, No tenderness Musculoskeletal: No tenderness Integumentary: No rashes Neurological: Normal speech, Normal tone, Normal affect Lymphatics: No axilla or inguinal lymphadenopathy - Studies Laboratory Data (last 24 hrs) 09/01/19 06:10: Sodium 140, Potassium 3.1 L, BUN 7, Creatinine 0.89, Glucose 175 H, Phosphorus 1.8 L D, Magnesium 1.7 L 08/31/19 23:45: Potassium 3.1 L Medications List Reviewed: Yes Assessment And Plan - Current Problems (Diagnosis) (1) Status post reversal of ileostomy Current Visit: Yes Status: Acute Plan: Patient is currently status post reversal of ileostomy -status post reversal of ileostomy POD 5 -currently on IV antibiotics will continue that here in the hospital -general surgery is primary on the case -pain management with [place] now -DC NG tube and IV fluids. Advance to CLD -will monitor patient closely (2) Atrial fibrillation Current Visit: No Status: Chronic Plan: Patient with history of chronic atrial fibrillation -currently taking Coreg however not taking Eliquis as it was expensive. -Restarted on Coreg and Lovenox now Qualifiers: Atrial fibrillation type: longstanding persistent Qualified Code(s): I48.11 - Longstanding persistent atrial fibrillation (3) Diabetes Onset Date: 09/12/15 Current Visit: No Status: Chronic Plan: Will place patient on insulin sliding scale Qualifiers: Diabetes mellitus type: type 2 Diabetes mellitus detention insulin use: without medical terminologist use Diabetes mellitus complication detail: with chronic kidney disease Chronic kidney disease stage: stage 3 (moderate) (4) Essential hypertension Onset Date: 02/27/18 Current Visit: No Status: Chronic Plan: Stable at this time. Will restart home medication Discharge Plan: Home Plan to discharge in: Greater than 2 days - Code Status/Comfort Care Code Status Assessed: Yes Critical Care: No
--- NOTE | 2019-09-01 14:58 | PN ---
Date of Progress Note: 09/01/2019 Subjective: Patient is awake and alert, no complaints except for some sore throat from the NG tube. Objective: Vital Signs: Stable. Afebrile. Abdomen: Benign. She has hypokalemia and low magnesium and low phosphorus, being replaced. Assessment: Status post takedown of ileostomy with ileocecectomy. Recommendations: Advance diet to regular 1800 calorie ADA. Continue antibiotics. Encourage ambulat ion, incentive spirometry. Discharge in a.m. once electrolytes are corrected. /MODL Voice ID: [id number] Report ID: [id number]
[2019-09-02] MEDS: CEFOXITIN/SWI 1gm 1 GM/10 ML SYR IVP SCH (05:37)
[2019-09-02] MEDS: METRONIDAZOLE 500mg IVPB 500 MG/100 ML BAG IV SCH (05:39)
[2019-09-02 06:13] LABS: Magnesium 1.9 mg/dL (1.8-2.4); Phosphorus 1.9 mg/dL (2.5-4.9); Potassium 3.4 mmol/L (3.5-5.1)
[2019-09-02] MEDS: INSULIN -REGULAR HUMAN 50 UNIT/0.5 ML ML SQ SCH (07:30)
[2019-09-02 08:42] VITALS: BP 163/74; TEMP 98.8
[2019-09-02] MEDS ORDERED: POTASSIUM PHOS IN 0.9 % NACL 15 MMOL/250 ML BAG IV ONE (09:00)
[2019-09-02] MEDS ORDERED: POTASSIUM CL SA 10 MEQ TAB PO ONE (09:00)
[2019-09-02] MEDS: SODIUM BICARB 325 MG TAB PO SCH (09:10)
[2019-09-02] MEDS: AMLODIPINE 10 MG TAB PO SCH (09:11)
[2019-09-02] MEDS: CYANOCOBALAMIN 1,000 MCG TAB PO SCH (09:12)
[2019-09-02] MEDS: CARVEDILOL 25 MG TAB PO SCH (09:12)
[2019-09-02] MEDS: ENOXAPARIN 60 MG/0.6 ML SQ SCH (09:12)
[2019-09-02] MEDS: PANTOPRAZOLE 40 MG INJ IV SCH (09:12)
[2019-09-02] MEDS: FERROUS SULFATE 325 MG TAB PO SCH (09:12)
[2019-09-02] MEDS: SODIUM CHLORIDE 0.9% 10ML INJ IV SCH (09:14)
[2019-09-02 10:22] VITALS: O2SAT 98
--- NOTE | 2019-09-02 12:05 | P.PN ---
Subjective Date of Service: 09/02/19 Primary Care Provider: Dr. Adan; Surgery-Dr. Castro; Nephrology-Dr. Triana Chief Complaint: Ileostomy Reversal Subjective: Improving, Doing well Physical Examination - Vital Signs Temperature: 98.8 F Blood Pressure: 163/74 Pulse: 73 Respirations: 15 Pulse Ox (%): 98 - Physical Exam General: Alert, In no apparent distress, Oriented x3, Cooperative HEENT: Atraumatic Neck: Supple Respiratory: Clear to auscultation bilaterally, Normal air movement Cardiovascular: Normal pulses, Regular rate/rhythm Gastrointestinal: Normal bowel sounds, Soft and benign, Non-distended, No tenderness, No masses, No rebound, No guarding Musculoskeletal: No erythema, No tenderness, No warmth Integumentary: No tenderness/swelling, No erythema, No warmth, No cyanosis Neurological: Normal speech, Normal strength at 5/5 x4 extr, Normal tone, Normal affect - Studies Laboratory Data (last 24 hrs) 09/02/19 05:10: Sodium 141, Potassium 3.4 L, BUN 10, Creatinine 0.75, Glucose 155 H, Phosphorus 1.9 L, Magnesium 1.9 09/01/19 23:00: Potassium 3.6 09/01/19 14:50: Potassium 3.4 L Medications List Reviewed: Yes Assessment & Plan Discharge Plan: Home Plan to discharge in: 24 Hours Physician Review Additional Text: Impression: Status post reversal of ileostomy Chronic atrial fibrillation not on chronic anti coagulation therapy Diabetes mellitus type 2 yrz-bwjvzde-neozgnuva Hypertension Chronic hyponatremia Chronic renal disease stage III Plan: Patient will be discharged home. Patient will continue with her current medications. Case discussed with surgery who will follow up with patient. Case also discussed with nephrology who is seen the patient for chronic hyponatremia. Patient will need repeat lab-CMP in 1-2 weeks. Follow up with nephrology at that time to further adjust her medication. Continue with discharge plan of care. Time Spent Managing Pts Care (In Minutes): 55
--- NOTE | 2019-09-03 03:39 | DS ---
Date of Discharge: 09/02/2019 Admitting Diagnosis: Status post small bowel resection ileostomy. Postoperative Diagnosis: Status post small bowel resection ileostomy. Procedure Performed: Ileocecectomy, reversal of ileostomy. Hospital Course: Patient is a 73-year-old female with hypertension, diabetes, and aforementioned lucinda gnosis who underwent the aforementioned procedure. Postoperatively, was in the ICU. Hospitalist was consulted electrolytes were checked and corrected. Patient was advanced to the floor after a couple of days in the ICU, started having flatus, NG tube was clamped. Liquids were started, and diet was advanced. The bowel movements started on Friday. NG tube was discontinued, Orellana were discontinued . Electrolytes were checked and corrected. Patient was started on diet, ambulating, pain controlled with p.o. pain medication, afebrile, therefore patient will be discharged to home. Disposition: Home. Condition: Stable. Discharge Instructions: Resume home medications and diet. Activity: As tolerated. No heavy lifting. Remove outer dressing in a.m. Shower. Keep wound clean and dry. Follow up in my office in a week. Call for appointment. Tylenol No.3 one tablet p.o. q.4 p.r.n. pain. Follow up with PCP. ANGIE/FAUSTO Voice ID: [id number] Report ID: [id number]
== END 2019-09-02 11:25 | disposition home or self-care (01) | DRG 330 ==
LOC: OR 08:58 → 3RD-ICU 12:41 → 2ND 08-30 15:20
PROVIDERS: ADMIT Surgery; ATTEND Surgery
PROC: 0DBB4ZZ Excision of Ileum, Percutaneous Endoscopic Approach (ICD-10-PCS; principal; 2019-08-27 11:15)
PROC: 0DBH4ZZ Excision of Cecum, Percutaneous Endoscopic Approach (ICD-10-PCS; 2019-08-27 11:15)
DX: Z43.2 Encounter for attention to ileostomy (principal); E87.1 Hypo-osmolality and hyponatremia; I48.11 Longstanding persistent atrial fibrillation; E11.22 Type 2 diabetes mellitus with diabetic chronic kidney disease; I12.9 Hypertensive chronic kidney disease with stage 1 through stage 4 chronic kidney disease, or unspecified chronic kidney disease; N18.3 Chronic kidney disease, stage 3 (moderate); Z79.4 Long term (current) use of insulin; Z79.01 Long term (current) use of anticoagulants
CPT/HCPCS: 36415; 71045; 80048; 82947; 82962; 83735; 84100; 84132; 85025; 88304; 88305; 93005; 94640; 97110; 97116; 97161; 97530; C9113; J1170; J1650; J2250; J2370; J2405; J2704; J2710; J3010; J3475; J7030; J7040; J7042; J7120

== ENCOUNTER 2019-11-02 22:20 | Emergency (ER) | payer OTHER ==
--- OUTSIDE RECORDS SUMMARY | 2019-11-02 22:23 | XMS REPORT ---
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 Problem Acute renal disease N28.9 Active Problem Shortness of breath R06.02 Active Problem Hypo-osmolality and hyponatremia E87.1 Active Problem Enlarged heart I51.7 Active Problem Abnormal chest x-ray R93.89 Active Problem Chronic kidney disease, stage III N18.3 Active (moderate) Problem Atrial fibrillation, unspecified I48.91 Active type Problem Acute renal failure, unspecified N17.9 Active acute renal failure type Problem Acidosis E87.2 Active Problem Ileostomy status Z93.2 Active Problem Essential hypertension I10 Active Problem External hemorrhoids K64.4 Active Problem Hypertension, unspecified type I10 Active Problem Controlled type 2 diabetes mellitus E11.9 Active without complication, without long-term current use of insulin Problem Non-intractable vomiting with R11.2 Active nausea, unspecified vomiting type Problem Sigmoid diverticulitis K57.32 Active Problem Bleeding external hemorrhoids K64.4 Active Problem Wheezing R06.2 Active Problem Depression screening Z13.31 Active Problem URI, acute J06.9 Active Medications No Known Medications Results No Known Results Summary Purpose [employer] Submission
--- OUTSIDE RECORDS SUMMARY | 2019-11-02 22:23 | XMS REPORT ---
:1945 Author Organization [employer] Care Team Providers Name Role Phone Loco Fatou Provider Role Unavailable Allergies, Adverse Reactions, Alerts Substance Reaction Event Type N.K.D.A. 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 Problem Abnormal chest x-ray R93.89 Active Problem Ileostomy status Z93.2 Active Problem Hypo-osmolality and hyponatremia E87.1 Active Problem Acidosis E87.2 Active Problem Type 2 diabetes mellitus with E11.65 Active hyperglycemia Problem Acute pharyngitis, unspecified J02.9 Active etiology Problem Essential hypertension I10 Active Problem Controlled type 2 diabetes mellitus E11.9 Active without complication, without long-term current use of insulin Problem Type 2 diabetes mellitus with E11.21 Active diabetic nephropathy Problem Hypertension, unspecified type I10 Active Problem Chronic kidney disease, stage III N18.3 Active (moderate) Problem Acute renal disease N28.9 Active Problem Atrial fibrillation, unspecified I48.91 Active type Problem Acute renal failure, unspecified N17.9 Active acute renal failure type Problem Depression screening Z13.31 Active Problem Sigmoid diverticulitis K57.32 Active Problem External hemorrhoids K64.4 Active Problem Bleeding external hemorrhoids K64.4 Active Problem Non-intractable vomiting with R11.2 Active nausea, unspecified vomiting type Problem Generalized abdominal pain R10.84 Active Problem Wheezing R06.2 Active Problem URI, acute J06.9 Active Medications Medication Code Code Instructions Start End Status Dosage System Date Date Olmesartan [facility] 40455117601 20 MG Orally Dec 10, Active 1 tablet Medoxomil Once a day for 2019 high blood pressure Telmisartan [facility] 18717867962 80 MG Orally Inactive 1 tablet Once a day Coreg [facility] 83381570799 25 mg Orally Active 1 tablet Twice daily Pantoprazole [facility] 23942579221 40 MG Orally Active 1 tablet Sodium Once daily Ferrous Sulfate [facility] 67679068119 325 (65 Fe) MG Active 1 tablet Orally Once a day Iron [facility] 03955863924 325 (65 Fe) MG Active 1 tablet Orally Once a day Cyanocobalamin [facility] 76959570746 2500 MCG Active 1 tablet Sublingual Once a day Doxazosin [facility] 08701863493 2 MG Orally Active 1 tablet Mesylate Once a day in evening for high blood pressure Klor-Con 10 [facility] 49524125904 10 MEQ Orally Active 1 tablet Twice a day with food Ventolin A [facility] 64946731839 108 (90 Base) Nov 24, Active 2 puffs as MCG/ACT 2019 needed for Inhalation sob/wheezi every 4-6 hrs ng Doxazosin [facility] 94173449152 1 MG Orally Aug 28, Active 1 tablet Mesylate Once a day 2018 in evening Vitamin D-3 [facility] 05141230136 1000 UNIT Active 2 capsules Orally Once a day Eliquis 5 mg [facility] 68183604075 5 mg Orally Active 1 tablet Twice daily Vitamin B12 [facility] 70477504998 1000 MCG Orally Active 1 tablet Once a day Amlodipine [facility] 77880703227 10 MG Orally Active 1 tablet Besylate Once a day One Touch test ND 0 test strips Dec 28, Active one strip strips finger prick 2018 once daily ProAir HFA [facility] 48018689754 108 (90 Base) Active 2 puffs as MCG/ACT needed for Inhalation SOB/wheezi every 4-6 hrs nig GlipiZIDE [facility] 18012966066 5 MG Orally Active 1 tablet Once a day Sodium [facility] 88992636423 325 MG Orally Active 1,300 mg Bicarbonate Three times daily Sodium Chloride [facility] 91117114016 1 GM Orally Active 2 grams Twice a day with meals Loperamide HCl [facility] 22476757297 2 MG Orally Active 1 tablet Every 4 hours as needed Results No Known Results Summary Purpose [employer]ClinicalWorks Submission
[2019-11-02] MEDS ORDERED: NA CHLORIDE 0.9% 1,000 ML ONE (22:44)
[2019-11-02 23:16] LABS: Absolute Lymphocytes (CBC) 1.4 K/uL (0.7-4.9); Basophils % 0.9 % (0-1.3); Hematocrit 37.8 % (36.0-45.0); MPV 8.4 fL (7.6-11.3); RBC Red Blood Cell Count 4.39 M/uL (3.86-4.86)
[2019-11-02 23:30] LABS: Albumin 3.8 g/dL (3.4-5.0); Bilirubin Direct 0.1 mg/dL (0-0.2); Bilirubin Total 0.4 mg/dL (0.2-1.0); Potassium 3.5 mmol/L (3.5-5.1)
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
[2019-11-03 00:33] LABS: Urine Blood 1+ (NEG); Urine Glucose NEGATIVE (NEG); Urine Protein NEGATIVE (NEG); Urine Specific Gravity 1.015 (1.005-1.030); Urine pH 5.5 (5.0-7.0)
[2019-11-03] MEDS ORDERED: IBUPROFEN 400 MG TAB ONE (01:03)
[2019-11-03] MEDS ORDERED: HYDROCODONE/APAP 7.5/325 MG TAB ONE (01:03)
[2019-11-03] MEDS ORDERED: ONDANSETRON 4 MG (ODT) TAB ONE (01:03)
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
[2019-11-03 02:31] VITALS: TEMP 98
[2019-11-03 02:40] VITALS: O2SAT 99
[2019-11-03 02:41] VITALS: BP 177/77
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
--- NOTE | 2019-11-04 08:12 | EKG ---
Test Date: 2019-11-02 Test Time: 22:35:32 Field Reviewer: PIERRE MEASUREMENT RESULTS: Intervals: Rate: 95 NE: 222 QRSD: 84 QT: 362 QTc: 454 [place]: P: 58 NE: 222 QRS: 48 T: 32 INTERPRETIVE STATEMENTS: Sinus rhythm with 1st degree AV block Cannot rule out Inferior infarct, age undetermined Abnormal ECG Compared to ECG 08/31/2019 08:08:06 First degree AV block now present Myocardial infarct finding now present Atrial fibrillation no longer present Ventricular premature complex(es) no longer present T-wave abnormality no longer present Possible ischemia no longer present Electronically Signed On 11-04-19 08:10:17 MAINTENANCE REPAIRER by Ez Burks
== END 2019-11-03 02:13 | disposition home or self-care (01) ==
LOC: ER 22:20
DX: S82.65XA Nondisplaced fracture of lateral malleolus of left fibula, initial encounter for closed fracture (principal); S60.012A Contusion of left thumb without damage to nail, initial encounter; S60.011A Contusion of right thumb without damage to nail, initial encounter; R07.89 Other chest pain; V43.62XA Car passenger injured in collision with other type car in traffic accident, initial encounter; Y93.89 Activity, other specified; Y92.410 Unspecified street and highway as the place of occurrence of the external cause; I10 Essential (primary) hypertension; E11.9 Type 2 diabetes mellitus without complications
CPT/HCPCS: 93005; 87088; 85025; 87086; 80048; 36415; 86900; 86850; 86901; 80076; 81003; 83690; 70450; 72125; 71260; 74177; 73130 ×2; 73610; 96360; 99285; Q9967; J7030

== ENCOUNTER 2021-05-12 10:33 | Emergency (ER) | payer OTHER ==
--- OUTSIDE RECORDS SUMMARY | 2021-05-12 10:39 | XMS REPORT | Continuity of Care Document ---
:1945 Author Organization [facility] t Address [address] [place] [address] Care Team Providers Name Role Phone SHRUTI CLARKE M.D. 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 Medications Ordered Filled Start Stop Current Ordering Indication Dosage Frequency Signature Comments Components Source Medication Medication Date Date Medication? Clinician (SIG) Name Name GlipiZIDE GlipiZIDE 2020-0 Yes Fatou [address] [facility] 6[facility]10 [facility] Methocarbam Methocarbam 2019-0 Yes SHRUTI TAKE 1 Univers ol 750 MG ol 750 MG 4-21 CUPIC M.D. TABLET BY ity of Oral Tablet Oral Tablet 00:00: MOUTH [place] 00 THREE Physici TIMES ans DAILY Meloxicam Meloxicam 2019-0 Yes SHRUTI TAKE 1 Univers 15 MG Oral 15 MG Oral 2-25 CUPIC M.D. TABLET BY ity of Tablet Tablet 00:00: MOUTH 00 AFTER Physici MEAL. ans Cyclobenzap Cyclobenzap 2019- Yes SHRUTI TAKE 1 Univers rine HCl - rine HCl - 2-25 CUPIC M.D. TABLET AT ity of 5 MG Oral 5 MG Oral 00:00: BEDTIME [place] Tablet Tablet 00 NEEDED. Physici ans Baclofen 10 Baclofen 10 2019- Yes SHRUTI TAKE 1 Univers MG Oral MG Oral 1-16 CUPIC M.D. TABLET BY ity of Tablet Tablet 00:00: MOUTH 00 TWICE Physici DAILY ans Sulindac Sulindac Yes SHRUTI TAKE 1 Un [place] 200 MG Oral 200 MG Oral 1-16 CUPIC M.D. TABLET BY ity of Tablet Tablet 00:00: MOUTH 00 TWICE A Physici DAY AFTER ans MEALS One Touch One Touch Yes Fatou one strip [facility] test strips test strips 2-18 [facility] GlipiZIDE GlipiZIDE Yes Fatou [address] [facility] Doxazosin Doxazosin Yes Fatou [address] [facility] Mesylate Mesylate [facility] in evening [facility] - for high [facility] blood l pressure [facility] Coreg Coreg Yes Fatou [address] [facility] Diazepam Diazepam Yes Fatou one tablet [facility] Sodium Sodium Yes Fatou [address] [facility] Chloride Chloride [facility] with meals [facility] Olmesartan Olmesartan Yes Fatou [address] [facility] Medoxomil Medoxomil [facility] Lancets Lancets Yes Fatou as [facility] directed [facility] - (for one [facility] touch l ultra) [facility] Aspirin Aspirin Yes Fatou [address] [facility] Acetaminoph Acetaminoph Yes Fatou [address] [facility] en-Codeine en-Codeine [facility] as needed [facility] Glucose Glucose Yes Fatou as [facility] testing testing [facility] directed [facility] - strips strips (for one [facility] touch l ultra) [facility] Amlodipine Amlodipine Yes Fatou [address] [facility] Besylate Besylate Millender [facility] Ferrous Ferrous Yes Fatou [address] [facility] Sulfate Sulfate [facility] Immunizations Ordered Filled Immunization Date Status Comments Sour e Immunization Name Name FLUZONE HIGH DOSE FLUZONE HIGH DOSE 2019-08-[address] [facility] - OVER 65 OVER 65 00:00:00 [facility] Pneumovax Pneumovax 2018-12-[address] [facility] Procedures Procedure Date / Time Performed Performing Clinician [facility] 2019-11-25 00:00:00 [facility] Physicians Encounters Start End Encounter Admission Attending Care Care Encounter Source Date/Time Date/Time Type Type Clinicians Facility Department ID 2021-03-13 2021-03-13 Outpatient [facility] [id number] [facility] 2021-03-13 2021-03-13 Outpatient [facility] [id number] [facility] 2020-12-22 2020-12-22 Outpatient [facility] [id number] [facility] 2020-12-15 2020-12-15 Outpatient [facility] [id number] [facility] 2020-12-11 2020-12-11 Outpatient [facility] [id number] [facility] 2020-07-25 2020-07-25 Outpatient [facility] [id number] [facility] 2020-07-20 2020-07-20 [facility] [id number] [facility] 13:00:00 13:00:00 t [facility] Medicine Outpati ent Clinics 2020-07-18 2020-07-18 [facility] [id number] [facility] 09[facility]58:00 09:58:00 t [facility] Medicine Outpati ent Clinics 2020-06-15 2020-06-15 [facility] [id number] [facility] 09:00:00 09:00:00 t Specialty/U Latisha k[facility] - Specialty rology [facility] /[facility]rology Clinic l Clinic Outpati ent Clinics 2020-04-19 2020-04-19 [facility] [id number] [facility] 08:40:00 08:40:00 t [facility] Outpati ent Clinics 2020-02-29 2020-02-29 Appointmen [facility] [id number] [facility] 11:00:00 11:00:00 t; SHRUTI CLARKE M.D. - [facility] Physici ans 2020-02-21 2020-02-21 [facility] [id number] [facility] 09:54:00 09:54:00 t [facility] Outpati ent Clinics 2020-01-18 2020-01-18 [facility] [id number] [facility] 08:30:00 08:30:00 t [facility] Outpati ent Clinics 2020-01-04 2020-01-04 Appointmen [facility] [id number] [facility] 11:15:00 11:15:00 t; SHRUTI CLARKE M.D. - [facility] Physici ans 2019-12-16 2019-12-16 [facility] [id number] [facility] 09:00:00 09:00:00 t Specialty/U Latisha kes - Specialty rology Mem[facility] a /Urology Clinic l Clinic Outpati ent Clinics 2019-11-25 2019-11-25 Appointmen [facility] [id number] [facility] 14:30:00 14:30:00 t; SHRUTI CLARKE M.D. - [facility] Physici ans 2019-11-23 2019-11-23 [facility] [id number] [facility] 14:30:00 14:30:00 t [facility] Medicine Outpati ent Clinics 2019-11-08 2019-11-08 [facility] [id number] [facility] 13:00:00 13:00:00 t [facility] Medicine Outpati ent Clinics 2019-10-19 2019-10-19 [facility] [id number] [facility] 10:00:00 10:00:00 t [facility] Medicine Outpati ent Clinics 2019-09-14 2019-09-14 [facility] [id number] [facility] 10:31:00 10:31:00 t [facility] Medicine Outpati ent Clinics 2019-09-09 2019-09-09 [facility] [id number] [facility] 19:04:00 19:04:00 t [facility] Medicine Outpati ent Clinics 2019-09-09 2019-09-09 [facility] [id number] 09:00:00 09:00:00 t [facility] Medicine Outpati ent Clinics 2019-08-16 2019-08-16 [facility] [id number] [facility] 08:20:00 08:20:00 t [facility] Medicine Outpati ent Clinics 2019-07-31 2019-07-31 [facility] [id number] [facility] 02:03:00 02:03:00 t [facility] Medicine Outpati ent Clinics 2019-07-21 2019-07-21 [facility] [id number] [facility] 16:39:00 16:39:00 t [facility] Medicine Outpati ent Clinics 2019-07-20 2019-07-20 [facility] [id number] [facility] 11:20:00 11:20:00 t [facility] Medicine Medicine Outpati ent Clinics 2019-06-17 2019-06-17 [facility] [id number] [facility] 16:25:00 16:25:00 t [facility] Medicine Medicine Outpati ent Clinics 2019-06-16 2019-06-16 [facility] [id number] [facility] 09:45:00 09:45:00 t Specialty/U Latisha kes - Specialty rology Memori a /Urology Clinic l Clinic Outpati ent Clinics 2019-05-17 2019-05-17 [facility] [id number] 19:51:00 19:51:00 t [facility] Medicine Medicine Outpati ent Clinics 2019-05-12 2019-05-12 [facility] [id number] 12:59:00 12:59:00 t [facility] Medicine Medicine Outpati ent Clinics 2019-05-12 2019-05-12 [facility] [id number] [facility] 08:00:00 08:00:00 t [facility] Medicine Medicine Outpati ent Clinics 2019-05-04 2019-05-04 [facility] [id number] [facility] 14:00:00 14:00:00 t [facility] Medicine Medicine Outpati ent Clinics 2019-02-22 2019-02-22 [facility] [id number] [facility] 10:40:00 10:40:00 t [facility] Medicine Medicine Outpati ent Clinics 2019-01-13 2019-01-13 [facility] [id number] [facility] 13:00:00 13:00:00 t Specialty/U Latisha kes - Specialty rology Memori a /Urology Clinic l Clinic Outpati ent Clinics 2019-01-06 2019-01-06 [facility] [id number] [facility] 13:30:00 13:30:[address] [facility] [place] [facility] 2019-01-04 2019-01-04 [facility] [id number] [facility] 08:15:00 08:15:00 t Specialty/U Latisha kes - Specialty rology Memori a /Urology Clinic l Clinic Outpati ent Clinics 2018-12-28 2018-12-28 [facility] [id number] 11:34:00 11:34:00 t [facility] Medicine Outpati ent Clinics 2018-12-01 2018-12-01 [facility] [id number] [facility] 09:45:00 09:45:00 t [facility] Medicine Outpati ent Clinics 2018-11-24 2018-11-24 [facility] [id number] [facility] 21:55:00 21:55:00 t [facility] Medicine Outpati ent Clinics 2018-11-24 2018-11-24 [facility] [id number] [facility] 19:59:00 19:59:00 t [facility] Medicine Outpati ent Clinics 2018-11-24 2018-11-24 [facility] [id number] [facility] 09:45:00 09:45:00 t [facility] Medicine Outpati ent Clinics 2018-07-06 2018-07-06 [facility] [id number] [facility] 11:30:00 11:30:00 t Specialty/U Latisha kes - Specialty rology Memori a /Urology Clinic l Clinic Outpati ent Clinics 2018-06-22 2018-06-22 [facility] [id number] 13:46:00 13:46:00 t Specialty/U Latisha kes - Specialty rology Mem[facility] /Urology Clinic l Clinic Outpati ent Clinics 2018-06-18 2018-06-18 [facility] [id number] [facility] 14:36:00 14:36:00 t [facility] Medicine Outpati ent Clinics 2018-06-17 2018-06-17 [facility] [id number] 10:30:00 10:30:00 t Specialty[facility] Clin[facility] 2018-05-28 2018-05-28 [facility] [id number] [facility] 14:15:00 14:15:00 t [facility] Medicine Outpati ent Clinics 2018-03-13 2018-03-13 [facility] [id number] [facility] [facility] 08:43:00 08:43:00 t [facility] Medicine Outpati ent Clinics 2018-03-04 2018-03-04 [facility] [id number] [facility] 10:15:00 10:15:00 t [facility] Results Test Description Test Time Test Comments Results Result Sourc e Comments [U] XR HAND MIN 3 2019-11-25 Images Univers ity of VWS BILATERAL 13:21:00 acquired, not [place] reported on Physicians this accession number. [U] XRAY SPINE 2019-11-25 Images University of LUMBOSACRAL 2 OR 13:18:00 acquired, not [place] 3 [id number] [id number] reported on Physicians this accession number. [U] XRAY ANKLE 2019-11-25 Images University of MIN 3 VWS RIGHT 13:17:00 acquired, not [place] [id number] reported on Physicians this accession number. [U] XRAY SPINE 2019-11-25 Images University of CERVICAL 2 OR 3 13:17:00 acquired, not [place] VWS [id number] reported on Physicians this accession number.
[2021-05-12] MEDS ORDERED: GABAPENTIN 300 MG CAP ONE (11:44)
[2021-05-12 11:46] LABS: Absolute Lymphocytes (CBC) 1.4 K/uL (0.7-4.9); Basophils % 1.1 % (0-1.3); Hematocrit 36.8 % (36.0-45.0); Lymphocytes % 21.7 % (15.3-44.8); MPV 7.9 fL (7.6-11.3); RBC Red Blood Cell Count 4.24 M/uL (3.86-4.86)
--- NOTE | 2021-05-12 11:56 | RAD REPORT ---
EXAM DESCRIPTION: CT - Head Brain Wo Cont - 05/12/2021 11:38 am CLINICAL HISTORY: pain and numbness in upper/lower extremities COMPARISON: 07/17/2018, 09/23/2016 TECHNIQUE: All CT scans are performed using dose optimization technique as appropriate and may inclu de automated exposure control or mA/KV adjustment according to patient size. FINDINGS: No intracranial hemorrhage, hydrocephalus or extra-axial fluid collection.No areas of brai n edema or evidence of midline shift. The paranasal sinuses and mastoids are clear. The calvarium is intact. Right vertebral artery is athe rosclerotic. IMPRESSION: No acute intracranial abnormality.
--- NOTE | 2021-05-12 13:08 | ER ---
Nurse's Notes [facility] Name: Jesi Lee Age: 75 yrs Sex: Female : 1945 Arrival Date: 05/12/2021 Time: 10:36 Bed 15 Private MD: Bing Christie Diagnosis: Other specified diabetes mellitus with diabetic neuropathy, unspecified Presentation: 05/12 10:41 Chief complaint: Patient states: Tingling to hands and legs x 2 weeks. Unable to sleep. kg Coronavirus screen: Client denies travel out of the [place] in the last 14 days. At this time, unable to obtain information related to travel outside the [place] At this time, the client does not indicate any symptoms associated with coronavirus-19. Ebola Screen: Patient negative for fever greater than or equal to 101.5 degrees Fahrenheit, and additional compatible Ebola Virus Disease symptoms Patient denies exposure to infectious person. Patient denies travel to an Ebola-affected area in the 21 days before illness onset. Initial Sepsis Screen: Does the patient meet any 2 criteria? No. Patient's initial sepsis screen is negative. Does the patient have a suspected source of infection? No. Patient's initial sepsis screen is negative. Risk Assessment: Do you want to hurt yourself or someone else? Patient reports no desire to harm self or others. Onset of symptoms was April 28, 2021. 10:41 Method Of Arrival: Ambulatory kg 10:41 Acuity: RENETTA 4 kg Triage Assessment: 10:48 General: Appears in no apparent distress. Behavior is calm, cooperative, appropriate kg for age, quiet. Pain: Complains of pain in right hand, left hand, right leg and left leg Pain currently is 6 out of 10 on a pain scale. at worst was 9 out of 10 on a pain scale. level that patient reports is acceptable is 3 out of 10 on a pain scale. Historical: - Allergies: 10:43 Cipro; kg - Home Meds: 10:43 carvedilol 25 mg Oral tab 2 times per day [Active]; glipizide 5 mg Oral tab 1 tab 2 kg times per day [Active]; doxazosin 1 mg Oral tab 1 tab once daily [Active]; amlodipine 10 mg tab 1 tab once daily [Active]; olmesartan 20 mg oral tab 1 tab BID [Active]; cetirizine 10 mg oral tab 1 tab once daily [Active]; doxazosin 2 mg oral tab 1 tab once daily [Active]; - PMHx: 10:43 Diabetes; Hypertension; Diverticulitis; ruptured bowel; kg - PSHx: 10:43 bowel resection with colostomy and reversal; hysterectomy; kg - Immunization history:: Adult Immunizations up to date, Client reports receiving the 2nd dose of the Covid vaccine, Date received: December 19, 2020. - Social history:: Smoking status: Patient denies any tobacco usage or history of. Screenin:48 Abuse screen: Denies threats or abuse. Denies injuries from another. Nutritional kg screening: No deficits noted. Tuberculosis screening: No symptoms or risk factors identified. Fall Risk None identified. No fall in past 12 months (0 pts). No secondary diagnosis (0 pts). No IV (0 pts). Ambulatory Aid- None/Bed Rest/Nurse Assist (0 pts). Gait- Normal/Bed Rest/Wheelchair (0 pts) Mental Status- Oriented to own ability (0 pts). Total Abrams Fall Scale indicates No Risk (0-24 pts). Assessment: 11:00 General: Appears in no apparent distress. Behavior is calm, cooperative, appropriate tr6 for age. Pain: Complains of pain in b/l legs. Neuro: No deficits noted. Cardiovascular: No deficits noted. Respiratory: No deficits noted. GI: No deficits noted. : No deficits noted. EENT: No deficits noted. Derm: No deficits noted. Musculoskeletal: Range of motion: intact in all extremities. 11:14 Reassessment: MD Norton at bedside. tr6 13:15 Reassessment: No changes from previously documented assessment. Patient and/or family tr6 updated on plan of care and expected duration. Pain level reassessed. Patient is alert, oriented x 3, equal unlabored respirations, skin warm/dry/pink. pt states that leg pain has improved. Vital Signs: 10:41 BP 193 / 75; Pulse 58; Resp 20; Pulse Ox 98% on R/A; Weight 58.6 kg (R); Height 5 ft. 1 kg in. (154.94 cm); Pain 6/10; 10:41 Body Mass Index 24.41 (58.60 kg, 154.94 cm) kg ED Course: 10:36 Patient arrived in ED. ds1 10:36 Bing Christie MD is Private Physician. ds1 10:39 Blade Norton MD is Attending Physician. kdr 10:43 Triage completed. kg 10:49 Arm band placed on right wrist. kg 10:49 Patient has correct armband on for positive identification. Bed in low position. Call kg light in reach. Side rails up X2. Adult w/ patient. 10:50 Celeste Bach, RN is Primary Nurse. tr6 11:35 Inserted saline lock: 20 gauge in right wrist, using aseptic technique. Blood collected.tr6 11:35 No provider procedures requiring assistance completed. tr6 11:38 CT Head Brain wo Cont In Process Unspecified. EDMS 12:01 Chem 7 Sent. 5 12:01 CBC with Diff Sent. mh5 13:06 Bing Christie MD is Referral Physician. kdr 13:15 IV discontinued, intact, bleeding controlled, No redness/swelling at site. Pressure tr6 dressing applied. Administered Medications: 11:26 Drug: Neurontin (gabapentin) 300 mg Route: PO; tr6 13:16 Follow up: Response: No adverse reaction tr6 Outcome: 13:07 Discharge ordered by . kdr 13:15 Discharged to home ambulatory. tr6 13:15 Condition: improved 13:15 Discharge instructions given to patient, family, significant other, Instructed on discharge instructions, follow up and referral plans. no drinking with medication, medication usage, safety practices, Demonstrated understanding of instructions, follow-up care, medications, Prescriptions given X 1. 13:16 Patient left the ED. tr6 Signatures: Dispatcher [employer] EDTN Blade Norton MD MD [facility] Iman Mallory ds1 Mariah Moss [facility] Celeste Bach, RAUL RN tr6 Brenda Mccarty RN RN kg
--- NOTE | 2021-05-12 13:08 | EDPHYS ---
Physician Documentation [facility] Name: Jesi Lee Age: 75 yrs Sex: Female : 1945 Arrival Date: 05/12/2021 Time: 10:36 Bed 15 Private MD: Bing Christie ED Physician Blade Norton HPI: 05/12 11:48 This 75 yrs old Female presents to ER via Ambulatory with complaints of Leg Pain, kdr Numbness Of Hand. 11:48 The patient has been suffering from pain, numbness and tingling for the past two weeks kdr in her upper and lower extremities. Onset: The symptoms/episode began/occurred gradually, 2 week(s) ago. Severity of symptoms: At their worst the symptoms were mild moderate in the emergency department the symptoms. Historical: - Allergies: 10:43 Cipro; kg - Home Meds: 10:43 carvedilol 25 mg Oral tab 2 times per day [Active]; glipizide 5 mg Oral tab 1 tab 2 kg times per day [Active]; doxazosin 1 mg Oral tab 1 tab once daily [Active]; amlodipine 10 mg tab 1 tab once daily [Active]; olmesartan 20 mg oral tab 1 tab BID [Active]; cetirizine 10 mg oral tab 1 tab once daily [Active]; doxazosin 2 mg oral tab 1 tab once daily [Active]; - PMHx: 10:43 Diabetes; Hypertension; Diverticulitis; ruptured bowel; kg - PSHx: 10:43 bowel resection with colostomy and reversal; hysterectomy; kg - Immunization history:: Adult Immunizations up to date, Client reports receiving the 2nd dose of the Covid vaccine, Date received: December 19, 2020. - Social history:: Smoking status: Patient denies any tobacco usage or history of. ROS: 14:12 Constitutional: Negative for fever, chills, and weight loss, Eyes: Negative for injury, kdr pain, redness, and discharge, ENT: Negative for injury, pain, and discharge, Neck: Negative for injury, pain, and swelling, Cardiovascular: Negative for chest pain, palpitations, and edema, Respiratory: Negative for shortness of breath, cough, wheezing, and pleuritic chest pain, Abdomen/GI: Negative for abdominal pain, nausea, vomiting, diarrhea, and constipation, Back: Negative for injury and pain, : Negative for injury, bleeding, discharge, and swelling, MS/Extremity: Negative for injury and deformity, Skin: Negative for injury, rash, and discoloration, Psych: Negative for depression, anxiety, suicide ideation, homicidal ideation, and hallucinations, Allergy/Immunology: Negative for hives, rash, and allergies, Endocrine: Negative for neck swelling, polydipsia, polyuria, polyphagia, and marked weight changes, Hematologic/Lymphatic: Negative for swollen nodes, abnormal bleeding, and unusual bruising. 14:12 Neuro: Positive for tingling, Tingling and numbness to both upper and lower extremities - diabetic neuropathy distribuition, Negative for Exam: 14:12 Constitutional: This is a well developed, well nourished patient who is awake, alert, kdr and in no acute distress. Head/Face: Normocephalic, atraumatic. Eyes: Pupils equal round and reactive to light, extra-ocular motions intact. Lids and lashes normal. Conjunctiva and sclera are non-icteric and not injected. Cornea within normal limits. Periorbital areas with no swelling, redness, or edema. Neck: Trachea midline, no thyromegaly or masses palpated, and no cervical lymphadenopathy. Supple, full range of motion without nuchal rigidity, or vertebral point tenderness. No Meningismus. Chest/axilla: Normal chest wall appearance and motion. Nontender with no deformity. No lesions are appreciated. Cardiovascular: Regular rate and rhythm with a normal S1 and S2. No gallops, murmurs, or rubs. Normal PMI, no JVD. No pulse deficits. Respiratory: Lungs have equal breath sounds bilaterally, clear to auscultation and percussion. No rales, rhonchi or wheezes noted. No increased work of breathing, no retractions or nasal flaring. Abdomen/GI: Soft, non-tender, with normal bowel sounds. No distension or tympany. No guarding or rebound. No evidence of tenderness throughout. Back: No spinal tenderness. No costovertebral tenderness. Full range of motion. Skin: Warm, dry with normal turgor. Normal color with no rashes, no lesions, and no evidence of cellulitis. Vital Signs: 10:41 BP 193 / 75; Pulse 58; Resp 20; Pulse Ox 98% on R/A; Weight 58.6 kg (R); Height 5 ft. 1 kg in. (154.94 cm); Pain 6/10; 10:41 Body Mass Index 24.41 (58.60 kg, 154.94 cm) kg MDM: 13:07 Patient medically screened. kdr 14:12 Data reviewed: vital signs, nurses notes, lab test result(s), EKG, radiologic studies. kdr Counseling: I had a detailed discussion with the patient and/or guardian regarding: the historical points, exam findings, and any diagnostic results supporting the discharge/admit diagnosis, the need for outpatient follow up. 05/12 11:20 Order name: CBC with Diff kdr 05/12 11:20 Order name: Chem 7 kdr 05/12 11:20 Order name: CT Head Brain wo Cont; Complete Time: 12:26 kdr 05/12 11:21 Order name: CBC with Automated Diff; Complete Time: 11:47 EDMS 05/12 11:21 Order name: Basic Metabolic Panel; Complete Time: 12:26 EDMS Administered Medications: 11:26 Drug: Neurontin (gabapentin) 300 mg Route: PO; tr6 13:16 Follow up: Response: No adverse reaction tr6 Disposition Summary: 05/12/21 13:07 Discharge Ordered Location: Home kdr Problem: an ongoing problem kdr Symptoms: have improved kdr Condition: Stable kdr Diagnosis - Other specified diabetes mellitus with diabetic neuropathy, unspecified kdr Followup: kdr - With: Bing Christie MD - When: 2 - 3 days - Reason: If symptoms return, Further diagnostic work-up, Recheck today's complaints, Continuance of care, Re-evaluation by your physician Discharge Instructions: - Discharge Summary Sheet kdr - Diabetic Neuropathy kdr Forms: - Medication Reconciliation Form kdr - Thank You Letter kdr Prescriptions: - Neurontin 300 mg Oral Capsule - take 1 capsule by ORAL route At bedtime; 20 capsule; Refills: 0, Product kdr Selection Permitted Signatures: Dispatcher [employer] Blade Krishnamurthy MD MD kdr Celeste Bach RN RN tr6 Brenda Mccarty RN RN kg
[2021-05-12 13:23] VITALS: BP 193/75; O2SAT 98
== END 2021-05-12 13:16 | disposition home or self-care (01) ==
LOC: ER 10:33
DX: E13.40 Other specified diabetes mellitus with diabetic neuropathy, unspecified (principal); I10 Essential (primary) hypertension; Z88.1 Allergy status to other antibiotic agents
CPT/HCPCS: 36415; 70450; 80048; 85025; 99284

== ENCOUNTER 2022-03-20 21:22 | Inpatient (IN) | payer MEDICARE ==
--- OUTSIDE RECORDS SUMMARY | 2022-03-20 21:25 | XMS REPORT | Continuity of Care Document ---
:1945 Author Organization [facility] t Address [address] [place] [address] Care Team Providers Name Role Phone Bing Christie Attending Clinician Unavailable Walt Attending Clinician Unavailable Loco Attending Clinician Unavailable TRICIA Attending Clinician Unavailable Payers Payer Name Policy Type Policy Number Effective Date Expiration Date [facility] [employer] [id number] (MEDICARE 00:00:00 REPLACEMENT HMO) Problems Condition Condition Condition Status Onset Resolution Last Treating Co mments Source Name Details Category Date Date Treatment Clinician Date Joint pain Joint pain Problem Active U T in both in both Phys[facility] hands hands ans Cervical Cervical Problem Active [facility] spine spine [facility] degenerati degenerati an s on on Lumbar Lumbar Problem Active [facility] back back [facility] sprain, sprain, ans initial initial encounter encounter 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 Medications Ordered Filled Start Stop Current Ordering Indication Dosage Frequency Signature Comments Components Source Medication Medication Date Date Medication? Clinician (SIG) Name Name GlipiZIDE GlipiZIDE Yes Fatou 1 tablet Common 6-10 Millender Spirit 00:00: - [facility] Methocarbam Methocarbam 2019-0 Yes SHRUTI TAKE 1 UT ol 750 MG ol 750 MG 4-21 CUPIC M.D. TABLET BY Physici Oral Tablet Oral Tablet 00:00: MOUTH ans 00 THREE TIMES DAILY Meloxicam Meloxicam 2019-0 Yes SHRUTI TAKE 1 UT 15 MG Oral 15 MG Oral 2-25 CUPIC M.D. TABLET BY [facility] Tablet Tablet 00:00: MOUTH ans 00 AFTER MEAL. Cyclobenzap Cyclobenzap 2019-0 Yes SHRUTI TAKE 1 UT rine HCl - rine HCl - 2-25 CUPIC M.D. TABLET AT [facility] 5 MG Oral 5 MG Oral 00:00: BEDTIME ans Tablet Tablet 00 NEEDED. Baclofen 10 Baclofen 10 2019-0 Yes SHRUTI TAKE 1 UT MG Oral MG Oral 1-16 CUPIC M.D. TABLET BY Phys[facility] Tablet Tablet 00:00: MOUTH ans 00 TWICE DAILY Sulindac Sulindac 2019- Yes SHRUTI TAKE 1 UT 200 MG Oral 200 MG Oral 1-16 CUPIC M.D. TABLET BY Phys[facility] Tablet Tablet 00:00: MOUTH ans 00 TWICE A DAY AFTER MEALS One Touch One Touch Yes Fatou one strip Common test strips test strips 2-18 Millender Spirit 00:00: - [facility] GlipiZIDE GlipiZIDE Yes Fatou 1 tablet Common Millender [facility] Doxazosin Doxazosin Yes Fatou 1 tablet Common Mesylate Mesylate Millender in evening Spirit for high - [facility] blood [facility] Coreg Coreg Yes Fatou 1 tablet Common Millender [facility] Diazepam Diazepam Yes Fatou one tablet [facility] Sodium Sodium Yes Fatou 2 grams Common Chloride Chloride Millender with meals [facility] Olmesartan Olmesartan Yes Fatou 1 tablet Common Medoxomil Medoxomil Millender [facility] Lancets Lancets Yes Fatou as Common Millender directed Spirit (for one - [facility] touch [facility] Aspirin Aspirin Yes Fatou 1 tablet Comm on [facility] Acetaminoph Acetaminoph Yes Fatou 2 tablet Common en-Codeine en-Codeine Millender as needed [facility] Glucose Glucose Yes Fatou as Common testing testing Millender directed Spirit strips strips (for one - [facility] touch [facility] Amlodipine Amlodipine Yes Fatou 1 tablet Common Besylate Besylate Millender Sp vidhi [facility] Ferrous Ferrous Yes Fatou 1 tablet Comm on Sulfate Sulfate Millender Spir it [facility] Immunizations Ordered Immunization Filled Immunization Date Status Commen ts Source Name Name FLUZONE HIGH DOSE FLUZONE HIGH DOSE 2019-08-16 Completed Common Spirit OVER 65 OVER 65 00:00:00 [facility] Pneumovax Pneumovax 2018-12-01 Completed Common Spirit 00:00:00 [facility] Procedures Procedure Date / Time Performed Performing Clinician Sour e Physical Therapy 2019-11-25 00:00:00 [place] Phys[place] ns Encounters Start End Encounter Admission Attending Care Care Encounter Source Date/Time Date/Time Type Type Clinicians Facility Department ID 2022-03-15 Outpatient Christie, Na STLMLC STLMLC [id number] Common 09:30:00 [facility] 2022-02-01 Outpatient Christie, Na STLMLC STLMLC [id number] Common 09:14:00 [facility] 2021-12-05 Outpatient Christie, Na STLMLC STLMLC [id number] Common 14:30:46 [facility] 2021-12-05 Outpatient Christie, Na STLMLC STLMLC [id number] Common 13:40:57 [id number] [facility] 2021-12-05 Outpatient Christie, Na STLMLC STLMLC [id number] Common 13:36:53 [id number] [facility] 2021-12-05 Outpatient Christie, Na STLMLC STLMLC [id number] Common 13:34:35 [id number] [facility] 2021-12-05 Outpatient Christie, Na STLMLC STLMLC [id number] Common 13:29:46 [id number] [facility] 2021-12-05 Outpatient Christie, Na STLMLC STLMLC [id number] Common 13:24:32 [id number] [facility] 2021-12-05 Outpatient Christie, Na STLMLC STLMLC [id number] Common 13:24:05 [id number] [facility] 2021-12-05 Outpatient Christie, Na STLMLC STLMLC [id number] Common 12:27:05 [id number] [facility] 2021-12-05 Outpatient Christie, Na STLMLC STLMLC [id number] Common 12:26:31 [id number] [facility] 2021-12-05 Outpatient STLMLC STLMLC [id number] Common 12:15:30 [id number] [facility] 2021-12-05 Outpatient Walt, Kin STLMLC STLMLC [id number] Common 12:09:56 [id number] [facility] 2021-12-05 Outpatient Millender, STLMLC STLMLC [id number] Common 11:44:53 Fatou [id number] [facility] 2021-12-05 Outpatient Millender, STLMLC STLMLC [id number] Common 11:25:49 Fatou [id number] [facility] 2021-12-05 Outpatient Millender, STLMLC STLMLC [id number] Common 11:12:23 Fatou [id number] [facility] 2021-12-05 Outpatient Millender, STLMLC STLMLC [id number] Common 11:05:58 Fatou [id number] [facility] 2021-12-05 Outpatient Millender, STLMLC STLMLC [id number] Common 10:57:38 Fatou [id number] [facility] 2022-02-25 2022-02-25 ambulatory STLMLC STLMLC [id number] Common 00:00:00 00:00:00 [facility] 2022-02-18 2022-02-18 ambulatory STLMLC STLMLC [id number] Common 00:00:00 00:00:00 [facility] 2022-01-29 2022-01-29 ambulatory STLMLC STLMLC [id number] Common 00:00:00 00:00:00 [facility] 2022-01-04 2022-01-04 ambulatory STLMLC STLMLC [id number] Common 00:00:00 00:00:00 [facility] 2022-01-03 2022-01-03 Outpatient DMG DMG [id number] Devoted 08:01:00 08:01:00 [id number] [facility] 2021-11-13 2021-11-13 ambulatory STLMLC STLMLC [id number] Common 00:00:00 00:00:00 [facility] 2021-10-02 2021-10-02 ambulatory STLMLC STLMLC [id number] Common 00:00:00 00:00:00 [facility] 2021-08-15 2021-08-15 Outpatient STLMLC STLMLC [id number] Common 00:00:00 00:00:00 [facility] 2021-07-03 2021-07-03 Outpatient STLMLC STLMLC [id number] Common 00:00:00 00:00:00 [facility] 2021-06-05 2021-06-05 Outpatient STLMLC STLMLC [id number] Common 00:00:00 00:00:00 [facility] 2021-06-04 2021-06-04 Outpatient STLMLC STLMLC [id number] Common 00:00:00 00:00:00 [facility] 2021-05-21 2021-05-21 Outpatient STLMLC STLMLC [id number] Common 00:00:00 00:00:00 [facility] 2021-05-11 2021-05-11 Outpatient STLMLC STLMLC [id number] Common 00:00:00 00:00:00 [facility] 2021-03-13 2021-03-13 Outpatient STLMLC STLMLC [id number] Common 00:00:00 00:00:00 [facility] 2021-03-13 2021-03-13 Outpatient STLMLC STLMLC [id number] Common 00:00:00 00:00:00 [facility] 2020-12-22 2020-12-22 Outpatient STLMLC STLMLC [id number] Common 00:00:00 00:00:00 [facility] 2020-12-15 2020-12-15 Outpatient STLMLC STLMLC [id number] Common 00:00:00 00:00:00 [facility] 2020-12-11 2020-12-11 Outpatient STLMLC STLMLC [id number] Common 00:00:00 00:00:00 [facility] 2020-07-25 2020-07-25 Outpatient STLMLC STLMLC [id number] Common 00:00:00 00:00:00 [facility] 2020-07-20 2020-07-20 [facility] [id number] Common 13:00:00 13:00:[address] [facility] [address] [facility] 2020-07-18 2020-07-18 [facility] [id number] Common 09:58:00 09:58:[address] [facility] [address] [facility] 2020-06-15 2020-06-15 [facility] [id number] Common 09:00:00 09:00:00 t Specialty/U Sp vidhi Specialty rology - [facility] 2020-04-19 2020-04-19 [facility] [id number] Common 08:40:00 08:40:00 t [facility] it Road [facility] 2020-02-29 2020-02-29 [facility] [id number] [place] 11:00:00 11:00:00 SHRUTI Harp M.D. [facility] Reyna Jay M.D. 2020-02-21 2020-02-21 [facility] [id number] Common 09:54:00 09:54:[address] [facility] [address] [facility] 2020-01-18 2020-01-18 [facility] [id number] Common 08:30:00 08:30:00 t [facility] [address] Sp[address] Road [facility] 2020-01-04 2020-01-04 Appointmen [facility] [id number] [place] 11:15:00 11:15:00 t; SHRUTI CLARKE M.D. - [facility] 2019-12-16 2019-12-16 [facility] [id number] Common 09:00:00 09:00:00 t Specialty/U Sp vidhi Specialty rology - [facility] 2019-11-25 2019-11-25 Appointmen [facility] [id number] [place] 14:30:00 14:30:00 t; [facility] 2019-11-23 2019-11-23 [facility] [id number] Common 14:30:00 14:30:00 t [facility] [address] Sp[address] Road [facility] 2019-11-08 2019-11-08 [facility] [id number] Common 13:00:00 13:00:00 t [facility] [address] Sp[address] [facility] 2019-10-19 2019-10-19 [facility] [id number] Common 10:00:00 10:00:00 t [facility] [address] [facility] 2019-09-14 2019-09-14 [facility] [id number] Common 10:31:00 10:31:00 t [facility] [address] Sp[address] [facility] 2019-09-09 2019-09-09 [facility] [id number] Common 19:04:00 19:04:00 t [facility] [address] [facility] 2019-09-09 2019-09-09 [facility] [id number] Common 09:00:00 09:00:00 t [facility] [address] [facility] 2019-08-16 2019-08-16 [facility] [id number] Common 08:20:00 08:20:[address] [facility] 2019-07-31 2019-07-31 [facility] [id number] Common 02:03:00 02:03:[address] [facility] 2019-07-21 2019-07-21 [facility] [id number] Common 16:39:00 16:39:[address] [facility] 2019-07-20 2019-07-20 [facility] [id number] Common 11:20:00 11:20:[address] [facility] 2019-06-17 2019-06-17 [facility] [id number] Common 16:25:00 16:25:[address] [facility] 2019-06-16 2019-06-16 [facility] [id number] Common 09:45:00 09:45:00 t Specialty/U Sp vidhi Specialty rology - [facility] 2019-05-17 2019-05-17 [facility] [id number] Common 19:51:00 19:51:[address] [facility] 2019-05-12 2019-05-12 [facility] [id number] Common 12:59:00 12:59:[address] [facility] 2019-05-12 2019-05-12 [facility] [id number] Common 08:00:00 08:00:[address] [facility] 2019-05-04 2019-05-04 [facility] [id number] Common 14:00:00 14:00:[address] [facility] 2019-02-22 2019-02-22 [facility] [id number] Common 10:40:00 10:40:00 t [facility] [address] [facility] 2019-01-13 2019-01-13 [facility] [id number] Common 13:00:00 13:00:00 t Specialty/U Sp vidhi Specialty rology [facility] 2019-01-06 2019-01-06 [facility] [id number] Common 13:30:00 13:30:[address] [facility] 2019-01-04 2019-01-04 [facility] [id number] Common 08:15:00 08:15:00 t Specialty/U Sp vidhi Specialty [facility] 2018-12-28 2018-12-28 [facility] [id number] Common 11:34:00 11:34:00 t [facility] [address] [facility] 2018-12-01 2018-12-01 [facility] [id number] Common 09:45:00 09:45:[address] [facility] 2018-11-24 2018-11-24 [facility] [id number] Common 21:55:00 21:55:[address] [facility] 2018-11-24 2018-11-24 [facility] [id number] Common 19:59:00 19:59:[address] [facility] 2018-11-24 2018-11-24 [facility] [id number] Common 09:45:00 09:45:[address] [facility] 2018-07-06 2018-07-06 [facility] [id number] Common 11:30:00 11:30:00 t Specialty/U Sp vidhi Specialty rology [facility] 2018-06-22 2018-06-22 [facility] [id number] Common 13:46:00 13:46:00 t Specialty[facility]U Sp vid[facility] 2018-06-18 2018-06-18 [facility] [id number] Common 14:36:00 14:36:[address] [facility] 2018-06-17 2018-06-17 [facility] [id number] Common 10:30:00 10:30:00 t Specialty/U Sp vidhi Specialty rology [facility] 2018-05-28 2018-05-28 [facility] [id number] Common 14:15:00 14:15:[address] [facility] 2018-03-13 2018-03-13 [facility] [id number] Common 08:43:00 08:43:[address] [facility] 2018-03-04 2018-03-04 [facility] [id number] Common 10:15:00 10:15:[address] [facility] Results Test Description Test Time Test Comments Results Result Sourc e Comments [U] XR HAND MIN 3 2019-11-25 Images [facility] VWS BILATERAL 13:21:00 acquired, not reported on this accession number. [U] XRAY SPINE 2019-11-25 [facility] LUMBOSACRAL 2 OR 3 13:18:00 acquired, not [id number] [id number] reported on this accession number. [U] XRAY ANKLE MIN 2019-11-25 [facility] 3 VWS RIGHT [id number] 13:17:00 acquired, not reported on this accession number. [U] XRAY SPINE 2019-11-25 [facility] CERVICAL 2 OR 3 13:17:00 acquired, not [id number] [id number] reported on this accession number.
[2022-03-20 22:24] LABS: Urine Blood 2+ (Negative); Urine Glucose Negative (Negative); Urine Protein Negative (Negative); Urine Specific Gravity <=1.005 (1.005-1.030)
[2022-03-20 22:36] LABS: Absolute Lymphocytes (CBC) 0.1 K/uL (0.7-4.9); Hematocrit 26.9 % (36.0-45.0); Lymphocytes % 12.7 % (15.3-44.8); MPV 7.6 fL (7.6-11.3); Protime INR 0.85; RBC Red Blood Cell Count 3.11 M/uL (3.86-4.86)
[2022-03-20 22:50] LABS: Albumin 3.4 g/dL (3.4-5.0); Bilirubin Direct 0.1 mg/dL (0-0.2); Bilirubin Total 0.3 mg/dL (0.2-1.0); Magnesium 1.9 mg/dL (1.8-2.4); Protein, Total 6.5 g/dL (6.4-8.2); Troponin High Sensitivity 32.8 pg/mL (<58.9)
[2022-03-20] MEDS ORDERED: ACETAMINOPHEN 500 MG TAB ONE (23:04)
[2022-03-20] MEDS ORDERED: METRONIDAZOLE 500mg IVPB 500 MG/100 ML BAG IV ONE (23:04)
[2022-03-20] MEDS ORDERED: NA CHLORIDE 0.9% 1,000 ML ONE ×2 (23:04→23:05)
[2022-03-20] MEDS ORDERED: CEFTRIAXONE 1000 MG/VIAL ONE (23:04)
--- NOTE | 2022-03-20 23:14 | ER ---
Nurse's Notes [facility] Name: Jesi Lee Age: 76 yrs Sex: Female : 1945 Arrival Date: 03/20/2022 Time: 21:27 Bed 14 Private MD: Diagnosis: Fever, unspecified-ANC 924;GI Bleed/ Gastrointestinal hemorrhage, unspecified;Neutropenia, unspecified;Anemia, unspecified;UTI/ Urinary tract infection, site not specified;Sepsis, unspecified organism;Pneumonia, unspecified organism-bilatearal lower lobe multifocal pneumonia Presentation: 03/20 21:52 Chief complaint: Spouse and/or significant other states: pt started having rectal sm5 bleeding about an hour prior to arrival. Coronavirus screen: At this time, the client does not indicate any symptoms associated with coronavirus-19. Ebola Screen: No symptoms or risks identified at this time. Initial Sepsis Screen: Does the patient meet any 2 criteria? RR > 20 per min. Temp <36.0*C (96.8*F)) or > 38.3*C (100.9*F). HR > 90 bpm. Yes Does the patient have a suspected source of infection? No. Patient's initial sepsis screen is negative. Risk Assessment: Do you want to hurt yourself or someone else? Patient reports no desire to harm self or others. Onset of symptoms was March 20, 2022. 21:52 Method Of Arrival: Wheelchair 5 21:52 Acuity: RENETTA 3 sm5 Triage Assessment: 21:54 General: Appears in no apparent distress. Behavior is cooperative. 5 Historical: - Allergies: 21:54 Cipro; sm5 - PMHx: 21:54 Diabetes; Diverticulitis; Hypertension; ruptured bowel; sm5 - PSHx: 21:54 bowel resection with colostomy and reversal; hysterectomy; sm5 - Immunization history:: Adult Immunizations up to date. - Social history:: Smoking status: unknown. - Family history:: not pertinent. Screenin:27 Abuse screen: Denies threats or abuse. Denies injuries from another. Nutritional sm5 screening: No deficits noted. Tuberculosis screening: No symptoms or risk factors identified. Fall Risk None identified. Assessment: 23:42 Pain: Denies pain. Neuro: No deficits noted. Ortiz Agitation-Sedation Scale (RASS): 5 0 - Alert and Calm Level of Consciousness is awake, alert, obeys commands, Oriented to person, place, time, situation. Cardiovascular: No deficits noted. Capillary refill < 3 seconds Patient's skin is warm and dry. Respiratory: No deficits noted. Airway is patent Trachea midline Respiratory effort is even, unlabored. GI: Reports rectal bleeding. Vital Signs: 21:52 BP 150 / 50; Pulse 95; Resp 21; Temp 103.4(O); Pulse Ox 98% on R/A; Weight 61.23 kg; 5 Height 5 ft. 1 in. (154.94 cm); 23:00 BP 134 / 55; Pulse 94; Resp 22; Pulse Ox 99% on R/A; sm5 21:52 Body Mass Index 25.51 (61.23 kg, 154.94 cm) [facility] ED Course: 21:27 Patient arrived in ED. kz 21:49 Simeon Gavin MD is Attending Physician. [facility] 21:52 Maya Maloney RN is Primary Nurse. [facility] 21:54 Triage completed. [facility] 21:54 Arm band placed on right wrist. 5 22:24 Type And Screen Sent. sm5 22:24 Lactate Sent. sm5 22:24 Procalcitonin Sent. sm5 22:24 Blood Culture Adult (2) Sent. sm5 22:24 Urine Culture Sent. sm5 22:24 Lipase Sent. sm5 22:24 Basic Metabolic Panel Sent. sm5 22:24 CBC with Diff Sent. sm5 22:24 LFT's Sent. sm5 22:24 Magnesium Sent. sm5 22:24 NT PRO-BNP Sent. sm5 22:24 PT-INR Sent. sm5 22:24 Troponin HS Sent. sm5 22:27 Inserted saline lock: 20 gauge in left forearm, using aseptic technique. Blood [facility] collected. 22:55 XRAY Chest (1 view) In Process Unspecified. EDMS 23:00 No provider procedures requiring assistance completed. 5 23:10 Vito Rader MD is Hospitalizing Provider. [facility] 23:43 Patient has correct armband on for positive identification. Bed in low position. Call [facility] light in reach. Side rails up X2. Client placed on continuous cardiac and pulse oximetry monitoring. NIBP monitoring applied. 03/21 00:14 Abdomen In Process Unspecified. EDMS Administered Medications: 03/20 23:17 Drug: Tylenol 1000 mg Route: PO; 5 03/21 04:19 Follow up: Response: Temperature is decreased [facility] 03/20 23:17 Drug: Rocephin (cefTRIAXone) 1 grams Route: IV; Rate: per protocol; Site: right forearm;5 23:30 Follow up: IV Status: Completed infusion; IV Intake: 50ml 5 23:18 Drug: Flagyl (metroNIDAZOLE) 500 mg Volume: 100 ml; Route: IVPB; Rate: 200 ml/hr; sm5 Infused Over: 30 mins; Site: right forearm; 23:45 Follow up: IV Status: Completed infusion; IV Intake: 100ml 5 23:18 Drug: NS 0.9% 1000 ml Route: IV; Rate: 1 bolus; Site: right forearm; 5 03/21 00:15 Follow up: IV Status: Completed infusion; IV Intake: 1000ml 5 00:47 Drug: NS 0.9% 1000 ml Route: IV; Rate: 125 ml/hr; Site: right forearm; 5 01:29 Drug: Zithromax (azithromycin) 500 mg Route: IVPB; Infused Over: 1 hrs; Site: right sm5 forearm; 02:30 Follow up: IV Status: Completed infusion; IV Intake: 250ml 5 04:16 Drug: NS 0.9% 1000 ml Route: IV; Rate: 1 bolus; Site: right forearm; 5 05:56 Drug: NS 0.9% 500 ml Route: IV; Rate: bolus; Site: right forearm; 5 Medication: 03/20 23:39 VIS not applicable for this client. 5 Intake: 23:30 IV: 50ml; Total: 50ml. 5 23:45 IV: 100ml; Total: 150ml. 5 03/21 00:15 IV: 1000ml; Total: 1150ml. sm5 02:30 IV: 250ml; Total: 1400ml. 5 Outcome: 03/20 23:13 Decision to Hospitalize by Provider. [facility] 03/21 15:26 Patient left the ED. ph Signatures: Dispatcher [employer] EDMS Simeon Gavin MD MD cha Hall, Patricia RN Maya Ibarra ph, RN RN Rossy Krishnamurthy Corrections: (The following items were deleted from the chart) 03/20 22:27 22:23 COVID-19/FLU A+B+MOL.LAB.ESEQUIEL drawn and sent. sm5 [facility] 03/21 19:53 19:53 General: Appears [place] [id number]
--- NOTE | 2022-03-20 23:14 | EDPHYS ---
Physician Documentation [facility] Name: Jesi Lee Age: 76 yrs Sex: Female : 1945 Arrival Date: 03/20/2022 Time: 21:27 Bed 14 Private MD: ED Physician Simeon Gavin HPI: 03/20 21:59 This 76 yrs old Female presents to ER via Wheelchair with complaints of Shaking. vicki 21:59 The patient presents to the emergency department with rectal bleeding, in toilet bowl, vicki in a single episode. Onset: The symptoms/episode began/occurred just prior to arrival. Abdominal pain: none is appreciated. Modifying factors: The symptoms are alleviated by nothing, the symptoms are aggravated by nothing. SHAKING AND WEAK, 103.5 , RED BLOOD PER RECTUM. Associated signs and symptoms: Pertinent positives: fever. The patient reports fever, that was measured at 103 degrees Fahrenheit. Modifying factors: Recent medications: none unaware of sick contact. Severity of symptoms: At their worst the symptoms were mild in the emergency department the symptoms are unchanged. Historical: - Allergies: 21:54 Cipro; sm5 - PMHx: 21:54 Diabetes; Diverticulitis; Hypertension; ruptured bowel; sm5 - PSHx: 21:54 bowel resection with colostomy and reversal; hysterectomy; sm5 - Immunization history:: Adult Immunizations up to date. - Social history:: Smoking status: unknown. - Family history:: not pertinent. ROS: 21:59 Constitutional: Negative for fever, chills, and weight loss, Eyes: Negative for injury, vicki pain, redness, and discharge, ENT: Negative for injury, pain, and discharge, Neck: Negative for injury, pain, and swelling, Cardiovascular: Negative for chest pain, palpitations, and edema, Respiratory: Negative for shortness of breath, cough, wheezing, and pleuritic chest pain, Back: Negative for injury and pain, : Negative for injury, bleeding, discharge, and swelling, MS/Extremity: Negative for injury and deformity, Skin: Negative for injury, rash, and discoloration, Neuro: Negative for headache, weakness, numbness, tingling, and seizure, Psych: Negative for depression, anxiety, suicide ideation, homicidal ideation, and hallucinations, Allergy/Immunology: Negative for hives, rash, and allergies, Endocrine: Negative for neck swelling, polydipsia, polyuria, polyphagia, and marked weight changes, Hematologic/Lymphatic: Negative for swollen nodes, abnormal bleeding, and unusual bruising. 21:59 Abdomen/GI: Positive for rectal bleeding. Exam: 21:59 Head/Face: Normocephalic, atraumatic. Eyes: Pupils equal round and reactive to light, vicki extra-ocular motions intact. Lids and lashes normal. Conjunctiva and sclera are non-icteric and not injected. Cornea within normal limits. Periorbital areas with no swelling, redness, or edema. ENT: Nares patent. No nasal discharge, no septal abnormalities noted. Tympanic membranes are normal and external auditory canals are clear. Oropharynx with no redness, swelling, or masses, exudates, or evidence of obstruction, uvula midline. Mucous membranes moist. Neck: Trachea midline, no thyromegaly or masses palpated, and no cervical lymphadenopathy. Supple, full range of motion without nuchal rigidity, or vertebral point tenderness. No Meningismus. Chest/axilla: Normal chest wall appearance and motion. Nontender with no deformity. No lesions are appreciated. Cardiovascular: Regular rate and rhythm with a normal S1 and S2. No gallops, murmurs, or rubs. Normal PMI, no JVD. No pulse deficits. Respiratory: Lungs have equal breath sounds bilaterally, clear to auscultation and percussion. No rales, rhonchi or wheezes noted. No increased work of breathing, no retractions or nasal flaring. Back: No spinal tenderness. No costovertebral tenderness. Full range of motion. 22:34 Abdomen/GI: Rectal exam: rectal tone Stool: guaiac negative, hemorrhoid(s), are not vicki appreciated, mass, is not appreciated, swelling, is not appreciated, tenderness, is not appreciated. 23:20 ECG was reviewed by the Attending Physician. [facility] Vital Signs: 21:52 BP 150 / 50; Pulse 95; Resp 21; Temp 103.4(O); Pulse Ox 98% on R/A; Weight 61.23 kg; sm5 Height 5 ft. 1 in. (154.94 cm); 23:00 BP 134 / 55; Pulse 94; Resp 22; Pulse Ox 99% on R/A; sm5 21:52 Body Mass Index 25.51 (61.23 kg, 154.94 cm) 5 MDM: 21:49 Patient medically screened. [facility] 22:02 Differential diagnosis: gastritis, diverticulitis, viral Infection, bacterial vicki infection, URI, bronchitis, pneumonia UTI, gastroenteritis. Differential Diagnosis sepsis, flu. Data reviewed: vital signs, nurses notes, lab test result(s), EKG, radiologic studies, CT scan, plain films. Data interpreted: hemotherapist: rate is 95 beats/min, rhythm is regular, Pulse oximetry: on room air is 98 %. Test interpretation: by ED physician or midlevel provider: ECG, plain radiologic studies. Counseling: I had a detailed discussion with the patient and/or guardian regarding: the historical points, exam findings, and any diagnostic results supporting the discharge/admit diagnosis, lab results, radiology results. 03/20 21:57 Order name: Basic Metabolic Panel; Complete Time: 22:56 [facility] 03/20 21:57 Order name: CBC with Diff; Complete Time: 23:59 [facility] 03/20 21:57 Order name: LFT's; Complete Time: 22:56 [facility] 03/20 21:57 Order name: Magnesium; Complete Time: 22:56 [facility] 03/20 21:57 Order name: NT PRO-BNP; Complete Time: 22:56 [facility] 03/20 21:57 Order name: PT-INR; Complete Time: 22:56 [facility] 03/20 21:57 Order name: Troponin HS; Complete Time: 22:56 [facility] 03/20 21:57 Order name: Lipase; Complete Time: 22:56 [facility] 03/20 21:57 Order name: Urine Culture [facility] 03/20 21:57 Order name: Blood Culture Adult (2) [facility] 03/20 21:57 Order name: Procalcitonin; Complete Time: 23:59 [facility] 03/20 21:57 Order name: Lactate; Complete Time: 23:09 [facility] 03/20 21:57 Order name: Type And Screen; Complete Time: 00:52 [facility] 03/20 22:24 Order name: Urine Dipstick-Ancillary; Complete Time: 22:29 [facility] 03/20 22:27 Order name: SARS-COV-2 RT PCR; Complete Time: 23:59 [facility] 03/20 23:05 Order name: CBC Smear Scan; Complete Time: 23:59 [facility] 03/21 01:22 Order name: Urine Microscopic Only; Complete Time: 02:26 [facility] 03/21 04:52 Order name: CBC with Automated Diff EDME 03/21 05:10 Order name: Comprehensive Metabolic Panel [facility] 03/21 05:10 Order name: Transferrin Sat/Iron Binding [facility] 03/21 05:10 Order name: Ferritin [facility] 03/21 05:19 Order name: Manual Differential [facility] 03/21 05:20 Order name: Lactate Sepsis 2 HR Follow-up; Complete Time: 05:40 [facility] 03/21 08:34 Order name: Gram Stain--Aerobic Bottle [facility] 03/21 08:34 Order name: Gram Stain--Anaerobic Bottle [facility] 03/21 08:35 Order name: Gram Stain--Aerobic Bottle [facility] 03/21 08:35 Order name: Gram Stain--Anaerobic Bottle [facility] 03/21 08:39 Order name: Glucose, Ancillary Testing [facility] 03/20 21:57 Order name: XRAY Chest (1 view) [facility] 03/20 21:57 Order name: EKG; Complete Time: 22:00 [facility] 03/20 21:57 Order name: Cardiac monitoring; Complete Time: 22:24 [facility] 03/20 21:57 Order name: EKG - Nurse/Tech; Complete Time: 22:53 [facility] 03/20 21:57 Order name: IV Saline Lock; Complete Time: 22:24 [facility] 03/20 21:57 Order name: Labs collected and sent; Complete Time: 22:24 [facility] 03/20 21:57 Order name: O2 Per Protocol; Complete Time: 22:24 [facility] 03/20 21:57 Order name: O2 Sat Monitoring; Complete Time: 22:24 [facility] 03/20 21:57 Order name: Urine Dipstick-Ancillary (obtain specimen); Complete Time: 22:24 [facility] 03/20 21:57 Order name: CT Abd/Pelvis - IV Contrast Only [facility] 03/20 23:13 Order name: Abdomen [facility] 03/21 09:54 Order name: Uric Acid [facility] 03/21 09:59 Order name: Creatine Phosphokinase [facility] 03/21 12:42 Order name: Glucose, Ancillary Testing [facility] 03/21 13:20 Order name: UR PROTEIN [facility] 03/21 13:24 Order name: Ur Protein EDME EC:20 Rate is 94 beats/min. Rhythm is regular. QRS [place] is Normal. NC interval is normal. QRS vicki interval is normal. QT interval is normal. No Q waves. T waves are Normal. No ST changes noted. Clinical impression: NSR w/ Non-specific ST/T Changes, 1st degree heart block, and No evidence of ischemia. Interpreted by me. Reviewed by me. Administered Medications: 23:17 Drug: Tylenol 1000 mg Route: PO; 5 03/21 04:19 Follow up: Response: Temperature is decreased [facility] 03/20 23:17 Drug: Rocephin (cefTRIAXone) 1 grams Route: IV; Rate: per protocol; Site: right forearm;5 23:30 Follow up: IV Status: Completed infusion; IV Intake: 50ml 5 23:18 Drug: Flagyl (metroNIDAZOLE) 500 mg Volume: 100 ml; Route: IVPB; Rate: 200 ml/hr; sm5 Infused Over: 30 mins; Site: right forearm; 23:45 Follow up: IV Status: Completed infusion; IV Intake: 100ml 5 23:18 Drug: NS 0.9% 1000 ml Route: IV; Rate: 1 bolus; Site: right forearm; 5 03/21 00:15 Follow up: IV Status: Completed infusion; IV Intake: 1000ml 5 00:47 Drug: NS 0.9% 1000 ml Route: IV; Rate: 125 ml/hr; Site: right forearm; 5 01:29 Drug: Zithromax (azithromycin) 500 mg Route: IVPB; Infused Over: 1 hrs; Site: right sm5 forearm; 02:30 Follow up: IV Status: Completed infusion; IV Intake: 250ml 5 04:16 Drug: NS 0.9% 1000 ml Route: IV; Rate: 1 bolus; Site: right forearm; 5 05:56 Drug: NS 0.9% 500 ml Route: IV; Rate: bolus; Site: right forearm; 5 Disposition Summary: 03/20/22 23:13 Hospitalization Ordered Hospitalization Status: Inpatient Admission vicki Provider: Vito Rader cha Condition: Fair vicki Problem: new vicki Symptoms: have improved vicki Bed/Room Type: Standard vicki Location: Telemetry/MedSurg (Inpatient)(03/21/22 11:20) [facility] Room Assignment: [facility](03/21/22 11:20) felix Diagnosis - Fever, unspecified - ANC 924 vicki - GI Bleed/ Gastrointestinal hemorrhage, unspecified vicki - Neutropenia, unspecified vicki - Anemia, unspecified vicki - UTI/ Urinary tract infection, site not specified vicki - Sepsis, unspecified organism vicki - Pneumonia, unspecified organism - bilatearal lower lobe multifocal pneumonia vicki Forms: - Medication Reconciliation Form vicki - SBAR form vicki Signatures: Dispatcher [employer] EDME Simeon Gavin MD MD cha Attema, Amando, PATTERN MAKER PROGRAMER-C PATTERN MAKER PROGRAMER-Cla1 Vibha Singh, RN RN cg Myles Concepcion RN RN [email or web address] Maya Maloney RN RN sm5 Corrections: (The following items were deleted from the chart) 03/20 22:27 22:00 COVID-19/FLU A+B+MOL.LAB.BRZ ordered. EDMS EDMS 23:13 22:04 Abdomen ordered. EDME EDMS 23:16 23:13 Telemetry/MedSurg (Inpatient) [facility] 23:16 23:13 [facility] 03/21 00:35 03/20 22:27 Influenza Screen (A ordered. EDME EDMS 03/21 11:20 03/20 23:16 BR ER HOLD ja1 03/21 11:20 03/20 23:16 ERHOLD- ja1
[2022-03-20 23:41] LABS: Blood Morphology Comment NOT SEEN (NOT SEEN); Platelet Estimate ADEQ; White Blood Cell Scan OK (OK)
[2022-03-21] MEDS ORDERED: NA CHLORIDE 0.9% 250 ML ONE ×2 (01:23→09:07)
[2022-03-21] MEDS ORDERED: AZITHROMYCIN 500 MG INJ IVPB ONE ×2 (01:23→09:07)
--- NOTE | 2022-03-21 02:03 | P.HP ---
Certification for Inpatient Patient admitted to: Inpatient With expected LOS: >2 Midnights Patient will require the following post-hospital care: None Practitioner: I am a practitioner with admitting privileges, knowledge of patient current condition, hospital course, and medical plan of care. Services: Services provided to patient in accordance with Admission requirements found in Title 42 Section 412.3 of the Code of Federal Regulations Patient History Date of Service: 03/21/22 Reason for admission: Sepsis, UTI/pneumonia History of Present Illness: 76-year-old female with history of diabetes mellitus type [id number], hypertension, atrial fibrillation presents the emergency department for fever. Has been reports patient has been feeling fine the last few days but today she called out to him and was found in the bedroom tremulous and febrile, patient then requested assistance to bathroom and proceeded to have 1 bowel movement with bright red blood. Upon arrival to the ER patient had fever to 103, further evaluation revealed patient has urinary tract infection, leukopenia CT demonstrates suspected multifocal pneumonia bilateral lower lobes. Patient does report some shortness of breath but is saturating well on room air at this time. ED provider performed rectal exam which was negative for any external or palpable internal hemorrhoids, guaiac was negative and has not had further bright red blood per rectum during her stay in the ER so far. ED prior wishes to admit for further evaluation and management of sepsis, UTI/pneumonia. Allergies No Known Allergies Allergy (Verified 08/24/19 13:01) Home Medications: Amlodipine Besylate [Norvasc] 10 mg PO DAILY WITH BREAKFAST 09/01/15 glipiZIDE [Glucotrol*] 5 mg PO DAILY 09/01/15 carvediloL [Coreg*] 25 mg PO BID 02/26/18 Cyanocobalamin [Vitamin B-12*] 1,000 mcg PO DAILY #30 tab 06/15/19 Pantoprazole [Protonix Tab*] 40 mg PO DAILYAC #30 tab 06/15/19 Ferrous Sulfate [Ferrous Sulfate*] 325 mg PO DAILY #30 tab 06/28/19 Loperamide [Imodium*] 2 mg PO Q6H #120 cap 06/28/19 Na Bicarb Tab [Sodium Bicarb 325 MG Tab*] 1,300 mg PO TID #360 tab 06/28/19 Sodium Chloride Tab [Sodium Chloride*] 1 gm PO BIDWM 08/24/19 - Past Medical/Surgical History Diabetic: Yes -: HTN -: Diabetes mellitus type 2, non insulin dependent -: Chronic Hearing loss -: Bowel Resection with Ileostomy bag/reversal -: Hyponatremia -: Hysterectomy -: Cholecystectomy -: [place] cataract sx -: 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 She is . - Family History Mother -: Hypertension, Diabetes Sister -: Hypertension, Diabetes Dad & Mom -: Hypertension, Diabetes - Social History Smoking Status: Never smoker Alcohol use: No CD- Drugs: No Caffeine use: Yes Place of Residence: Home Review of Systems 10-point ROS is otherwise unremarkable General: Fever, Chills, Weakness, Malaise Respiratory: Shortness of Breath Physical Examination - Physical Exam General: Alert, In no apparent distress, Oriented x3 HEENT: Atraumatic, PERRLA, Mucous membr. moist/pink, EOMI, Sclerae nonicteric Neck: Supple, 2+ carotid pulse no bruit, No LAD, Without JVD or thyroid abnormality Respiratory: Clear to auscultation bilaterally, Normal air movement Cardiovascular: Regular rate/rhythm, Normal S1 S2 Capillary refill: <2 Seconds Gastrointestinal: Normal bowel sounds, No tenderness Musculoskeletal: No tenderness Integumentary: No rashes Neurological: Normal speech, Normal strength at 5/5 x4 extr, Normal tone, Normal affect - Studies Laboratory Data (last 24 hrs) 03/20/22 22:06: PT 9.3 L, INR 0.85 03/20/22 22:06: WBC 1.1 L*, Hgb 9.1 L, Hct 26.9 L, Plt Count 182 03/20/22 22:06: Sodium 132 L, Potassium 4.0, BUN 34 H, Creatinine 1.76 H, Glucose 146 H, Magnesium 1.9, Total Bilirubin 0.3, AST 35, ALT 39, Alkaline Phosphatase 84, Lipase 474 H Assessment and Plan - Plan Assessment: Sepsis secondary to UTI/pneumonia Leukopenia likely related to sepsis Acute kidney injury secondary to sepsis Normocytic anemia Diabetes mellitus type [id number] Hypertension Bright red blood per rectum Plan: Sepsis secondary to UTI/pneumonia: Continue antibiotics RocephinZithromax, incentive spirometry urine and blood cultures obtained. Leukopenia likely related to sepsis: Continue as above Normocytic anemia: Transfuse to maintain hemoglobin greater than 7, obtain MARY labs. Did have 1 bowel movement with bright red blood prior to arrival to the emergency department per , has not had further bleeding at this time. If patient continues to have bright red blood per rectum may require GI evaluation. Acute kidney injury secondary to sepsis: Continue IV fluids, consult nephrology for worsening. Diabetes mellitus type [id number]: ACH S Accu-Chek, sliding scale insulin Hypertension: Continue home meds Bright red blood per rectum: Rectal exam negative per ED, guaiac negative. No further episodes of bleeding at this time. DVT PPX: SCD Code status: Discharge Plan: Home Plan to discharge in: 72 Hours - Advance Directives Does patient have a Living Will: No Does patient have a Durable POA for Healthcare: Yes - Code Status/Comfort Care Code Status Assessed: Yes (Full code) Critical Care: No Time Spent Managing Pts Care (In Minutes): 55
[2022-03-21 02:22] LABS: Urine Urothelial Cells <5 /HPF (NONE SEEN)
[2022-03-21 02:23] LABS: Urine Bacteria 20-50 /HPF (<20); Urine RBC NONE SEEN /HPF (NONE SEEN)
[2022-03-21] MEDS ORDERED: ONDANSETRON 4 MG/2 ML VIAL IV PRN (03:12)
[2022-03-21] MEDS ORDERED: NA CHLORIDE 0.9% 1,000 ML IV SCH (03:12)
[2022-03-21 03:16] VITALS: BMI 25.4
[2022-03-21] MEDS ORDERED: NA CHLORIDE 0.9% 1,000 ML ONE (04:18)
[2022-03-21 04:48] LABS: Absolute Lymphocytes (CBC) 0.3 K/uL (0.7-4.9); Hematocrit 25.1 % (36.0-45.0); Lymphocytes % 2.7 % (15.3-44.8); RBC Red Blood Cell Count 2.82 M/uL (3.86-4.86)
[2022-03-21 05:06] LABS: ALT/SGPT 55 U/L (12-78); AST/SGOT 75 U/L (15-37); Albumin 2.6 g/dL (3.4-5.0); Alkaline Phosphatase 72 U/L (45-117); BUN Blood Urea Nitrogen 37 mg/dL (7-18); Bilirubin Total 0.3 mg/dL (0.2-1.0); Ferritin 95.3 ng/mL (8-388); Glomerular Filtration Rate 27 ml/min (=/>90); Glucose Level 172 mg/dL (74-106); Potassium 3.4 mmol/L (3.5-5.1); Sodium Level 135 mmol/L (136-145); Transferrin 206 mg/dL (200-360)
[2022-03-21 05:09] LABS: Iron < 10.0 ug/dL (50-170)
[2022-03-21 05:10] LABS: Bicarbonate 13 mmol/L (21-32)
[2022-03-21 05:19] LABS: Blood Morphology Comment NOT SEEN (NOT SEEN); Platelet Estimate ADEQ
[2022-03-21] MEDS ORDERED: NA CHLORIDE 0.9% 500 ML ONE (05:51)
[2022-03-21] MEDS: INSULIN -REGULAR HUMAN 50 UNIT/0.5 ML ML SQ SCH ×4 (07:30→21:00)
--- NOTE | 2022-03-21 07:43 | EKG ---
Test Date: 2022-03-20 Test Time: 23:00:41 Type Disk Quality Control Supervisor: MANISHA MEASUREMENT RESULTS: Intervals: Rate: 94 [place]: 218 QRSD: 92 QT: 354 QTc: 442 [place]: P: 84 [place]: 218 QRS: 87 T: 42 INTERPRETIVE STATEMENTS: Sinus rhythm with 1st degree AV block Otherwise normal ECG Compared to ECG 11/02/2019 22:35:32 Myocardial infarct finding no longer present Electronically Signed On 03-21-22 07:42:53 CDT by Ez Burks
[2022-03-21] MEDS ORDERED: ALBUTEROL 2.5 MG/3 ML NEB SOL NEB PRN (07:45)
[2022-03-21] MEDS ORDERED: WATER FOR INJ,STERILE 1,000 ML with NA BICARB 8.4% 150 MEQ IV SCH ×2 (08:00)
[2022-03-21] MEDS ORDERED: CEFTRIAXONE 1,000 MG in NA CHLORIDE 0.9% 50 ML IVPB SCH (09:00)
[2022-03-21] MEDS ORDERED: CEFTRIAXONE 1000 MG/VIAL ONE (09:07)
[2022-03-21] MEDS ORDERED: NA CHLORIDE 0.9% 50 ML ONE (09:08)
[2022-03-21] MEDS ORDERED: FAMOTIDINE 20 MG/2 ML VIAL IV ONE (09:08)
[2022-03-21] MEDS: FAMOTIDINE 20 MG/2 ML VIAL IV SCH (09:18)
[2022-03-21] MEDS: ALBUTEROL 2.5 MG/3 ML NEB SOL NEB PRN (09:40)
[2022-03-21] MEDS ORDERED: ALBUTEROL 2.5 MG/3 ML NEB SOL ONE (09:47)
[2022-03-21] MEDS: AZITHROMYCIN IV 500 MG in NA CHLORIDE 0.9% 250 ML IVPB SCH (10:25)
[2022-03-21] MEDS ORDERED: NACHLORIDE 0.45% 1,000 ML with NA BICARB 8.4% 75 MEQ IV SCH ×2 (13:00)
[2022-03-21] MEDS ORDERED: POTASSIUM CL 40 MEQ in NA CHLORIDE 0.9% 500 ML IV SCH (13:00)
[2022-03-21] MEDS: SOD FERRIC GLUC COMPLX/SUCROSE 250 MG in NA CHLORIDE 0.9% 250 ML IV SCH (13:00)
[2022-03-21 13:23] LABS: Urine Protein/Creatinine Ratio 0.8 ratio (<0.15)
[2022-03-21] MEDS ORDERED: KCL 20 MEQ/100 mL IVPB 100 ML IV ONE (14:27)
[2022-03-21] MEDS: KCL 20 MEQ/100 mL IVPB 100 ML IV SCH ×4 (14:38→23:15)
--- NOTE | 2022-03-21 15:51 | RAD REPORT ---
EXAM DESCRIPTION: CT - Abdomen Pelvis Wo Contrast - 03/21/2022 5:40 am CLINICAL HISTORY: 76 years Female, Abdominal pain, acute, nonlocalized TECHNIQUE: Helical CT axial images are obtained from the lung bases to the pubic symphysis without I V contrast. No oral contrast was administered. Multiplanar reconstruction. This exam was performed ac cording to our departmental dose-optimization program, which includes automated exposure control, adj ustment of the mA and/or kV according to patient size and/or use of iterative reconstruction techniqu e. COMPARISON: 05/30/2019 FINDINGS: LUNG BASES: Small patchy groundglass opacities visualize bilateral lower lobes either repr esenting pulmonary edema versus multifocal pneumonia. LIVER: Normal in size. Normal attenuation. No focal masses. HEPATOBILIARY: Status post cholecystectomy. No intra- or extrahepatic ductal dilatation. SPLEEN: Normal size. PANCREAS: Normal size and contour. No focal mass. ADRENAL GLANDS: Normal size. No adrenal masses. KIDNEYS: Bilateral kidneys are normal in size without obstructing calculi or hydronephrosis. No nep hrolithiasis. A few scattered small cysts, no further workup is warranted. BOWEL AND MESENTERY: Fluid-filled nondistended loops of small bowel and colon from cecum to rectum. N o small or large bowel dilatation. Descending and sigmoid colon diverticulosis. Status post right low er quadrant surgery. No abnormal mesenteric lymphadenopathy. No free fluid or pneumoperitoneum. RETROPERITONEUM: Normal caliber abdominal aorta without aneurysm. Mild ASVD. No abnormal retroperit gutierrez lymphadenopathy. PELVIS: Urinary bladder is unremarkable. Status post hysterectomy. ABDOMINAL WALL: Small umbilical hernia containing nondistended loop of small bowel and a knuckle of t ransverse colon. There are 2 supraumbilical small fat-containing ventral hernias. BONES: No suspicious osseous lytic or blastic lesions seen. IMPRESSION: 1. Small patchy groundglass opacities visualized bilateral lower lobes either represen ting pulmonary edema versus multifocal pneumonia. 2. Fluid-filled nondistended loops of small bowel and colon from cecum to rectum, suggestive of a d iarrheal illness/enteritis. 3. Descending and sigmoid colon diverticulosis. 4. Small umbilical hernia containing nondistended loop of small bowel and a knuckle of transverse c olon. Two supraumbilical small fat-containing ventral hernias. 5. Status post cholecystectomy and hysterectomy. Electronically signed by: Ramesh Barr MD 03/21/2022 12:44 AM CDT Due to temporary technical issues with the PACS/Fluency reporting system, reports are being signed by the in house radiologists without review as a courtesy to insure prompt reporting. The interpreting radiologist is fully responsible for the content of the report.
--- NOTE | 2022-03-21 15:52 | RAD REPORT ---
EXAM DESCRIPTION: RAD - Chest Single View - 03/20/2022 10:53 pm CLINICAL HISTORY: Cough COMPARISON: 05/15/2019. TECHNIQUE: XR CHEST 1 VIEW 03/20/2022 9:57 PM CDT FINDINGS: The heart is enlarged. Lungs are clear without consolidation, atelectasis, mass or edema. There is no pleural effusion. There is no pneumothorax. Low anterior cervical fusion was performed. N G tube has been removed. IMPRESSION: Clear lungs. Electronically signed by: Patricio Barakat MD 03/20/2022 11:18 PM CDT Due to temporary technical issues with the PACS/Fluency reporting system, reports are being signed by the in house radiologists without review as a courtesy to insure prompt reporting. The interpreting radiologist is fully responsible for the content of the report.
[2022-03-21 17:17] LABS: Blood Gas Oxyhemoglobin 94.5 % (94-97); Blood O2 Saturation 96.9 % (92-98.5)
--- NOTE | 2022-03-21 18:00 | PN ---
Date of Progress Note: 03/21/2022 Reason For Consultation: Elevated BUN and creatinine, acidosis. 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 No diarrhea. The patient found to have severe acidosis, elevation in BUN and creatinine. For that reason, we have been consulted. CT abdomen showed pneumonia, bilateral. The patient also had rectal bleed. The patient had fever. Past Medical History: Includes; 1. Hypertension. 2. Diabetes complicated with neuropathy. 3. Chronic kidney disease, stage 3, baseline creatinine 0.7, GFR around 55. 4. Hyponatremia. 5. Recurrent acidosis. 6. Hypertension. Past Surgical History: 6 feet intestine removal, cholecystectomy, cataract, basal cell skin carcinoma removal, ileostomy. Family History: Positive for hypertension and diabetes. Social History: Denied smoking, denied drinking, denied drugs abuse. Home Medications: Include amlodipine, glipizide, carvedilol, pantoprazole, loperamide, sodium bicarb. Review of Systems: Head and Neck: No red eye. No ear pain. GI: No nausea. No vomiting. Has hematochezia. Research Test Engine Operator: No vaginal discharge. Respiratory: No shortness of breath. Cardiovascular: No chest pain. Endocrine: No polydipsia. Skin: No rash. Neuro: Has neuropathy. Musculoskeletal: Generalized fatigue. Physical Examination: Vital Signs: When I saw the patient; blood pressure 102/71, pulse of 67, afebrile. Chest: Clear to auscultation. Heart: S1, S2 regular. Abdomen: Soft, nontender. Extremities: No edema. Neuro: Alert. No focality no tumour . Laboratory Data: WBC 10.2, H and H 8.3/25.1. Sodium 135, potassium 3.4, bicarb 13, BUN 37, creatinine 1.8, calcium 7.2. Iron saturation 3.5, ferritin 95. Urinalysis; WBC of 20. Assessment And Plan: 1. Acute kidney injury secondary to prerenal, secondary to gastrointestinal loss, complicated with acidosis.on the recovery phase I am going to start the patient on bicarb drip, resume oral bicarb, and we will monitor the patient. do not see any need for renal replacement therapy 2. Hypertension, currently hypotension. Hold all blood pressure medications. We will start fluid resuscitation. 3. Non-anion gap metabolic acidosis, mostly secondary to renal tubular acidosis/gastrointestinal loss. I will resume bicarb oral, start bicarb drip. 4. Hyponatremia. We will keep the fluid isotonic. 5. Iron deficiency anemia secondary to gastrointestinal losses. Start IV iron. We will follow up with the primary. 6. Diabetes as by primary. 7. Rectal bleed as by primary. time spend exam the patient face to face , reviewing the data of lab and radiology , placing the order , discussing with the patient and the nursing staff , discussing with other merchandising team lead including hospitalist 65 min ROGELIO Voice ID: [id number] Report ID: [id number] MTDD
[2022-03-21] MEDS: CEFTRIAXONE 1,000 MG in NA CHLORIDE 0.9% 50 ML IVPB SCH (21:16)
[2022-03-21] MEDS: ACETAMINOPHEN 325 MG TABLET PO PRN (22:57)
[2022-03-22] MEDS: NACHLORIDE 0.45% 1,000 ML with NA BICARB 8.4% 75 MEQ IV SCH ×6 (01:00→18:12)
[2022-03-22] MEDS: KCL 20 MEQ/100 mL IVPB 100 ML IV SCH ×2 (01:00→01:23)
[2022-03-22 05:46] LABS: Absolute Lymphocytes (CBC) 0.6 K/uL (0.7-4.9); Hematocrit 24.9 % (36.0-45.0); Lymphocytes % 2.1 % (15.3-44.8); RBC Red Blood Cell Count 2.83 M/uL (3.86-4.86)
[2022-03-22 06:30] LABS: Albumin 2.6 g/dL (3.4-5.0); Bilirubin Total 0.4 mg/dL (0.2-1.0); Magnesium 1.5 mg/dL (1.8-2.4); Phosphorus 2.3 mg/dL (2.5-4.9); Potassium 4.2 mmol/L (3.5-5.1); Protein, Total 5.6 g/dL (6.4-8.2)
[2022-03-22 06:36] LABS: Thyroid Stimulating Hormone 4.64 uIU/mL (0.360-3.740)
[2022-03-22] MEDS: INSULIN -REGULAR HUMAN 50 UNIT/0.5 ML ML SQ SCH ×4 (07:30→21:00)
[2022-03-22] MEDS: CEFTRIAXONE 1,000 MG in NA CHLORIDE 0.9% 50 ML IVPB SCH ×2 (09:00→20:58)
[2022-03-22] MEDS: AZITHROMYCIN IV 500 MG in NA CHLORIDE 0.9% 250 ML IVPB SCH (09:04)
[2022-03-22] MEDS: FAMOTIDINE 20 MG/2 ML VIAL IV SCH (09:05)
[2022-03-22] MEDS ORDERED: NA CHLORIDE 0.9% 50 ML ONE (09:08)
[2022-03-22 09:09] LABS: Blood Morphology Comment NOT SEEN (NOT SEEN); Platelet Estimate DECR; Platelets, Giant FEW
[2022-03-22] MEDS ORDERED: Magnesium Sulfate 2gm IVPB 2 G/50 ML BAG IV ONE (09:26)
[2022-03-22] MEDS: GUAIFENESIN 600 MG SA TAB PO SCH ×2 (11:46→20:59)
[2022-03-22] MEDS: CALCIUM CARBONATE 500 MG TAB PO SCH ×2 (11:46→20:58)
--- NOTE | 2022-03-22 13:33 | P.PN ---
Subjective Date of Service: 03/22/22 Chief Complaint: Sepsis, UTI/pneumonia Subjective: No new changes Physical Examination - Vital Signs Temperature: 97.4 F Blood Pressure: 167/71 Pulse: 80 Respirations: 16 Pulse Ox (%): 100 - Physical Exam General: Other (Appears as her stated age) HEENT: Atraumatic, Normocephalic Neck: Supple Respiratory: Other (Symmetric chest expansion) Cardiovascular: No rubs, No murmurs Gastrointestinal: Soft and benign, Non-distended Musculoskeletal: No clubbing Integumentary: No warmth Neurological: Normal speech, Normal tone Urinary: Other (No bladder distention) External genitalia: Deferred Rectal: Deferred - Studies Microbiology Data (last 24 hrs): 03/20/22 22:20 Blood - Blood Blood Culture Gram Stain - Final 03/20/22 22:20 Blood - Blood Gram Stain - Final 03/20/22 22:06 Blood - Blood Blood Culture Gram Stain - Final 03/20/22 22:06 Blood - Blood Gram Stain - Final Assessment And Plan - Plan 1. Acute kidney injury secondary to prerenal, secondary to gastrointestinal loss. Improving. Encourage po fluid intake. Monitor renal panel 2. Hypertension. BP variable. Monitor. 3. Non-anion gap metabolic acidosis, mostly secondary to renal tubular acidosis/gastrointestinal loss. Cont bicarb drip. 4. Hyponatremia. Mild. Avoid hypotonic fluids. 5. HypoMg. Mg IV repletion today. 6. HypoPO4. Neutraphos x 2 pkts today. 7. HypoK. Improved. KCl repletion prn. 8. HypoCa. Correctec serum Ca 7.8. Ca IV repletion today. Check iPTH + 25OHD. 9. Iron deficiency anemia. On IV iron. 10. DM2. Mngt per primary team. 11. Rectal bleed. Per primary team. 12. Sepsis 2/2 UTI/PNA. Abx. F/u cultures.
[2022-03-22] MEDS ORDERED: CALCIUM GLUCONATE 1 GM IVPB 1 GM/50 ML BAG IV ONE (14:14)
[2022-03-22] MEDS ORDERED: POTASS/SODIUM PHOSPHATE 1 PKT POWD.PACK PO ONE (14:17)
--- NOTE | 2022-03-22 15:17 | P.PN ---
Subjective Date of Service: 03/22/22 Chief Complaint: Sepsis, UTI/pneumonia Subjective: No new changes, Improving Physical Examination - Vital Signs Temperature: 97.4 F Blood Pressure: 167/71 Pulse: 80 Respirations: 16 Pulse Ox (%): 100 - Physical Exam General: Alert, Oriented x3 HEENT: Atraumatic, Normocephalic Neck: Supple Respiratory: Diminished Cardiovascular: Regular rate/rhythm, Normal S1 S2 Gastrointestinal: Soft and benign Musculoskeletal: No swelling Neurological: Normal speech - Studies Microbiology Data (last 24 hrs): 03/20/22 22:20 Blood - Blood Blood Culture Gram Stain - Final 03/20/22 22:20 Blood - Blood Gram Stain - Final 03/20/22 22:06 Blood - Blood Blood Culture Gram Stain - Final 03/20/22 22:06 Blood - Blood Gram Stain - Final Assessment And Plan - Plan Sepsis secondary to UTI/pneumonia: Still significant concerns secondary to spuriously elevated white cell count today. We will continue antibiotics RocephinZithromax, incentive spirometry urine and blood cultures obtained. Leukopenia likely related to sepsis: Now resolved. White cell count is now 29K today. This is deemed a leukemoid reaction. We will monitor WBC and daily labs. Normocytic anemia: Concerns for GI bleed entertained. We will monitor hemoglobin closely. GI evaluation as needed. Acute kidney injury secondary to sepsis: Kidney function improving. Nephrology following for management recommendation. Diabetes mellitus type [id number]: ACH S Accu-Chek, sliding scale insulin Hypertension: Continue home meds Bacteremia: Blood culture growing gram-negative rods. Empiric Rocephin started. Will adjust based on antibiogram. UTI: Urine culture growing greater than 100,000 colony-forming unit of gram-negative rods. Ceftriaxone on board. Will monitor closely. Disposition: For discharge when clinically stable.
[2022-03-22] MEDS ORDERED: NA CIT/CITRIC AC 30 ML ORAL UDC PO SCH (17:00)
[2022-03-22] MEDS: ACETAMINOPHEN 325 MG TABLET PO PRN (20:59)
[2022-03-22 22:57] LABS: Urine Appearance Clear (Clear); Urine Bilirubin Negative (Negative); Urine Blood Trace-lysed (Negative); Urine Color Yellow (Yellow); Urine Glucose Negative (Negative); Urine Protein 1+ (Negative); Urine Urobilinogen 0.2 mg/dL (0.2-1.0); Urine pH 5.5 (5.0-7.0)
[2022-03-22 22:59] LABS: Urine Microscopic Reflex ORDER UMIC
[2022-03-22 23:14] LABS: Urine Bacteria >50 /HPF (<20)
[2022-03-22 23:15] LABS: Urine Amorphous Sediment 1+ /HPF (NONE SEEN); Urine Coarse Granular Casts 0-5 /LPF (NONE SEEN); Urine Mucus 2+ /HPF (NONE SEEN)
[2022-03-23] MEDS: NACHLORIDE 0.45% 1,000 ML with NA BICARB 8.4% 75 MEQ IV SCH ×6 (02:48→20:00)
[2022-03-23 05:54] LABS: Absolute Lymphocytes (CBC) 0.4 K/uL (0.7-4.9); Hematocrit 24.4 % (36.0-45.0); Lymphocytes % 1.7 % (15.3-44.8); MPV 8.7 fL (7.6-11.3)
[2022-03-23 06:08] LABS: Albumin 2.6 g/dL (3.4-5.0); Bilirubin Total 0.3 mg/dL (0.2-1.0); Phosphorus 2.1 mg/dL (2.5-4.9); Potassium 3.7 mmol/L (3.5-5.1); Protein, Total 5.7 g/dL (6.4-8.2)
[2022-03-23] MEDS: INSULIN -REGULAR HUMAN 50 UNIT/0.5 ML ML SQ SCH ×4 (07:30→21:00)
--- NOTE | 2022-03-23 08:27 | P.PN ---
Subjective Date of Service: 03/23/22 Chief Complaint: Sepsis, UTI/pneumonia Subjective: C/O voiced (has some sob and wheeze.) Physical Examination - Vital Signs Temperature: 97.4 F Blood Pressure: 167/71 Pulse: 80 Respirations: 16 Pulse Ox (%): 100 - Physical Exam General: Alert, Oriented x3 HEENT: Atraumatic, Normocephalic Neck: Supple Respiratory: Normal air movement Cardiovascular: Regular rate/rhythm, Normal S1 S2 Gastrointestinal: Soft and benign Musculoskeletal: No swelling - Studies Microbiology Data (last 24 hrs): 03/20/22 22:20 Clean Catch Urine [place] Count - Final >100,000 CFU/ML. 03/20/22 22:20 Clean Catch Urine - Final Citrobacter Farmeri Gram Neg Manuel 03/20/22 22:20 Blood - Blood Aerobic Blood Culture - Final Gram Neg Manuel Citrobacter Farmeri 03/20/22 22:20 Blood - Blood Blood Culture Gram Stain - Final 03/20/22 22:20 Blood - Blood Anaerobic Blood Culture - Final Citrobacter Farmeri 03/20/22 22:20 Blood - Blood Gram Stain - Final 03/20/22 22:06 Blood - Blood Aerobic Blood Culture - Final Gram Neg Manuel Citrobacter Farmeri 03/20/22 22:06 Blood - Blood Blood Culture Gram Stain - Final 03/20/22 22:06 Blood - Blood Anaerobic Blood Culture - Final Citrobacter Farmeri 03/20/22 22:06 Blood - Blood Gram Stain - Final Assessment And Plan - Plan Sepsis secondary to UTI/pneumonia: Still significant concerns secondary to spuriously elevated white cell count today. We will continue antibiotics RocephinZithromax, incentive spirometry urine and blood cultures obtained. Leukopenia likely related to sepsis: Now resolved. White cell count is now 26K today. This is deemed a leukemoid reaction. We will monitor WBC and daily labs. Normocytic anemia: Concerns for GI bleed entertained. We will monitor hemoglobin closely. GI evaluation as needed. Acute kidney injury secondary to sepsis: Kidney function improving. Nephrology following for management recommendation. Diabetes mellitus type [id number]: ACH S Accu-Chek, sliding scale insulin Hypertension: Continue home meds Bacteremia: Blood culture growing gram-Citrobacter farmeri. Empiric Rocephin to be continued. Will adjust based on antibiogram. UTI: Urine culture growing greater than 100,000 colony-forming unit of Citrobacter farmeri. Ceftriaxone on board. Will monitor closely. Disposition: For discharge when clinically stable.
[2022-03-23] MEDS: ALBUTEROL 2.5 MG/3 ML NEB SOL NEB PRN (09:21)
[2022-03-23] MEDS: CALCITROL 0.25 MCG CAP PO SCH (09:30)
[2022-03-23] MEDS: CEFTRIAXONE 1,000 MG in NA CHLORIDE 0.9% 50 ML IVPB SCH ×2 (09:30→21:16)
[2022-03-23] MEDS: AZITHROMYCIN IV 500 MG in NA CHLORIDE 0.9% 250 ML IVPB SCH (09:31)
[2022-03-23] MEDS: GUAIFENESIN 600 MG SA TAB PO SCH ×2 (09:31→21:18)
[2022-03-23] MEDS: CALCIUM CARBONATE 500 MG TAB PO SCH ×2 (09:31→21:18)
[2022-03-23] MEDS: FAMOTIDINE 20 MG TAB FT SCH (09:37)
[2022-03-23] MEDS ORDERED: POTASSIUM CL 40 MEQ in NA CHLORIDE 0.9% 500 ML IV SCH (10:00)
[2022-03-23] MEDS: KCL 20 MEQ/100 mL IVPB 100 ML IV SCH ×2 (11:15→13:11)
[2022-03-23] MEDS ORDERED: METHYLPREDNISOLONE 40 MG INJ IV ONE (11:30)
--- NOTE | 2022-03-23 16:55 | PN ---
Date of Progress Note: 03/23/2022 Subjective: The patient was admitted with acute kidney injury, acidosis, secondary to GI loss with rectal bleed. The patient is complaining shortness of breath and wheezing. Physical Examination: Vital Signs: Blood pressure 167/71, pulse of 80. Chest: Wheezing bilateral. Heart: S1, S2. Tachycardic. Abdomen: Soft and nontender. Extremities: No edema. Neurologic: Alert. No focality. Laboratory Data: WBC 26.8, H and H 8.1/24.4. Sodium 137, potassium 3.7, bicarb 20, BUN 34, creatinine 1.6, GFR of 33, calcium 7.3, phosphorus 2.1, and magnesium of 2. Current Medications: The patient on include azithromycin, ceftriaxone, IV iron, calcium carbonate, Pepcid, and magnesium oxide. Assessment And Plan: 1. Acute kidney injury secondary to prerenal, secondary to GI loss, secondary to rectal bleed. The patient is back close to her baseline still. I am going to continue on the hydration and we will monitor. 2. Acidosis secondary to gastrointestinal loss. The patient is status post IV bicarb recover. 3. Hypertension. Used to be hypotension. We will keep holding all blood pressure medications. 4. Hyponatremia depletional secondary to gastrointestinal loss, recovered, resolved. 5. Hypokalemia. We will supplement. 6. Diabetes as by primary. 7. Bronchial asthma with exacerbation. We will start the patient on treatment. 8. Hypocalcemia with secondary hyperparathyroidism. I am going to start the patient on calcitriol. Continue oral calcium supplement. time spend exam the patient face to face , reviewing the data of lab and radiology , placing the order , discussing with the patient and the nursing staff , discussing with other steam crane operator including hospitalist 35 min ROGELIO Voice ID: [id number] Report ID: [id number] RBIAN
[2022-03-23] MEDS: ACETAMINOPHEN 325 MG TABLET PO PRN (21:17)
[2022-03-23 23:37] VITALS: O2SAT 98
[2022-03-24] MEDS: HYDRALAZINE HCL 20 MG/ML VIAL IV PRN (01:35)
[2022-03-24] MEDS: ALBUTEROL 2.5 MG/3 ML NEB SOL NEB PRN ×2 (02:15→18:08)
[2022-03-24] MEDS ORDERED: METOPROLOL TARTRATE 5 MG/5 ML INJ IV STA (03:28)
[2022-03-24] MEDS: NACHLORIDE 0.45% 1,000 ML with NA BICARB 8.4% 75 MEQ IV SCH ×2 (04:36)
[2022-03-24] MEDS: INSULIN -REGULAR HUMAN 50 UNIT/0.5 ML ML SQ SCH ×4 (07:30→21:00)
[2022-03-24] MEDS ORDERED: CEFTRIAXONE 1000 MG/VIAL ONE (09:14)
[2022-03-24] MEDS ORDERED: NA CHLORIDE 0.9% 50 ML ONE (09:18)
[2022-03-24] MEDS: CEFTRIAXONE 1,000 MG in NA CHLORIDE 0.9% 50 ML IVPB SCH (09:22)
[2022-03-24] MEDS: AZITHROMYCIN IV 500 MG in NA CHLORIDE 0.9% 250 ML IVPB SCH (09:22)
[2022-03-24] MEDS: CALCITROL 0.25 MCG CAP PO SCH (09:23)
[2022-03-24] MEDS: FAMOTIDINE 20 MG TAB FT SCH (09:23)
[2022-03-24] MEDS: CALCIUM CARBONATE 500 MG TAB PO SCH ×3 (09:24→22:27)
[2022-03-24] MEDS: carvediloL 25 MG TAB PO SCH ×2 (09:24→17:39)
[2022-03-24] MEDS: GUAIFENESIN 600 MG SA TAB PO SCH ×2 (09:24→22:27)
[2022-03-24] MEDS: AMLODIPINE 10 MG TAB PO SCH (09:24)
[2022-03-24 09:40] LABS: Absolute Lymphocytes (CBC) 0.7 K/uL (0.7-4.9); Hematocrit 24.5 % (36.0-45.0); Lymphocytes % 2.2 % (15.3-44.8); MPV 9.4 fL (7.6-11.3); RBC Red Blood Cell Count 2.82 M/uL (3.86-4.86)
[2022-03-24 09:47] LABS: Albumin 2.6 g/dL (3.4-5.0); Bilirubin Total 0.3 mg/dL (0.2-1.0); Phosphorus 1.2 mg/dL (2.5-4.9); Potassium 3.8 mmol/L (3.5-5.1); Protein, Total 5.9 g/dL (6.4-8.2)
[2022-03-24 11:08] LABS: Anisocytosis 1+; Blood Morphology Comment NOTED (NOT SEEN); Ovalocytes 1+; Poikilocytosis 1+
[2022-03-24 11:09] LABS: Teardrop Cell FEW
[2022-03-24 11:10] LABS: Platelet Estimate ADEQ; Platelets, Giant FEW
[2022-03-24] MEDS ORDERED: POTASSIUM CL SA 10 MEQ TAB PO ONE (11:30)
[2022-03-24] MEDS ORDERED: HYDRALAZINE HCL 25 MG TABLET PO SCH (12:00)
[2022-03-24] MEDS: SODIUM BICARB 325 MG TAB PO SCH ×3 (12:16→22:26)
[2022-03-24] MEDS: POTASS/SODIUM PHOSPHATE 1 PKT POWD.PACK PO SCH ×3 (12:16→12:59)
[2022-03-24] MEDS: HYDRALAZINE HCL 25 MG TABLET PO SCH ×2 (12:59→22:28)
[2022-03-24] MEDS: SOD FERRIC GLUC COMPLX/SUCROSE 250 MG in NA CHLORIDE 0.9% 250 ML IV SCH (13:01)
--- NOTE | 2022-03-24 13:11 | PN ---
Date of Progress Note: 03/24/2022 Subjective: The patient was admitted with severe acidosis. The patient had acute kidney injury, yesterday had respiratory distress secondary to bronchial asthma exacerbation. Physical Examination: Vital Signs: Blood pressure 189/90, pulse of 103, afebrile. The patient had good urine output of 850, positive balance of 200. Chest: Wheezing bilateral. Heart: S1, S2. Regular. Abdomen: Soft, nontender. Extremity: No edema. Neuro: Alert. No focality. Laboratory Data: WBC 30.4, H and H 8.1/24.5. Sodium 140, potassium 3.8, bicarb 22, BUN 26, creatinine 1.7 and continued to trend down, calcium of 8, phosphorus 1.2, magnesium of 2, albumin 2.6, corrected calcium is 9. Current Medications: The patient on include; 1. Azithromycin. 2. Ceftriaxone. 3. Albuterol. 4. IV iron. 5. Calcium carbonate 1000 b.i.d. 6. Amlodipine. 7. Carvedilol. 8. Cardura. 9. Hydralazine 25 b.i.d. 10. Pepcid. 11. Bicarb drip. 12. Solu-Medrol. 13. Calcitriol. Assessment And Plan: 1. Acute kidney injury secondary to prerenal, secondary to gastrointestinal loss. Continued to recover. Looked to me normal volume to the wet side. I am going to go ahead and discontinue bicarb drip. We will switch the patient to oral. 2. High anion gap metabolic acidosis secondary to gastrointestinal loss, recovered, resolved. I am going to discontinue bicarb drip. Start the patient on oral bicarb. 3. Secondary hyperparathyroidism with hypocalcemia. Continue calcium carbonate, we will increase it to t.i.d. and I am going to go ahead and continue on calcitriol. 4. Hypophosphatemia. We will supplement. 5. Leukocytosis. The patient is growing Citrobacter, resistant to quinolone, sensitive to Augmentin and meropenem. We will discuss with primary about switching to meropenem and we will follow up. time spend exam the patient face to face , reviewing the data of lab and radiology , placing the order , discussing with the patient and the nursing staff , discussing with other donor services team leader including hospitalist 35 min KITTY/FAUSTO Voice ID: [id number] Report ID: [id number] BRIAN
--- NOTE | 2022-03-24 14:58 | P.PN ---
Subjective Date of Service: 03/24/22 Chief Complaint: Sepsis, UTI/pneumonia Subjective: No new changes, Improving Physical Examination - Vital Signs Temperature: 98.7 F Blood Pressure: 182/77 Pulse: 77 Respirations: 20 Pulse Ox (%): 98 - Physical Exam General: Alert HEENT: Atraumatic, Normocephalic Neck: Supple Respiratory: Normal air movement Cardiovascular: Regular rate/rhythm, Normal S1 S2 Gastrointestinal: Soft and benign Neurological: Normal speech Assessment And Plan - Plan Sepsis secondary to UTI/pneumonia: Present on admission. meropenem started for better citrobacter bacteremia management. Leukemoid reaction: White cell count is 32K today. This is deemed a leukemoid reaction. We will monitor WBC and daily labs. we have adjusted antibiotic to meropenem for better citrobacter coverage. Normocytic anemia: Concerns for GI bleed entertained. We will monitor hemoglobin closely. GI evaluation as needed. Acute kidney injury secondary to sepsis: Kidney function improving. Nephrology following for management recommendation. Diabetes mellitus type [id number]: ACH S Accu-Chek, sliding scale insulin Hypertension: Continue home meds Bacteremia: Blood culture growing gram-Citrobacter farmeri. Meropenem started for better bacteremia management. UTI: Urine culture growing greater than 100,000 colony-forming unit of Citrobacter farmeri. Meropenem started to day Will monitor closely. Disposition: For discharge when clinically stable.
[2022-03-24] MEDS ORDERED: Meropenem 500 MG in NA CHLORIDE 0.9% 100 ML IV SCH (15:00)
[2022-03-24] MEDS ORDERED: Meropenem 1,000 MG in NA CHLORIDE 0.9% 100 ML IV SCH (15:00)
[2022-03-24] MEDS: Meropenem 1,000 MG in NA CHLORIDE 0.9% 100 ML IV SCH (15:37)
[2022-03-24] MEDS: DOXAZOSIN 2 MG TAB PO SCH (22:28)
[2022-03-24] MEDS: ACETAMINOPHEN 325 MG TABLET PO PRN (22:28)
[2022-03-25] MEDS: Meropenem 1,000 MG in NA CHLORIDE 0.9% 100 ML IV SCH ×2 (02:29→15:18)
[2022-03-25] MEDS: HYDRALAZINE HCL 20 MG/ML VIAL IV PRN (02:43)
[2022-03-25 05:51] LABS: Albumin 2.6 g/dL (3.4-5.0); Magnesium 1.8 mg/dL (1.8-2.4); Phosphorus 1.6 mg/dL (2.5-4.9); Potassium 3.5 mmol/L (3.5-5.1)
[2022-03-25] MEDS: INSULIN -REGULAR HUMAN 50 UNIT/0.5 ML ML SQ SCH ×4 (07:30→21:00)
[2022-03-25] MEDS: HYDRALAZINE HCL 25 MG TABLET PO SCH ×3 (09:31→21:25)
[2022-03-25] MEDS: AMLODIPINE 10 MG TAB PO SCH (09:31)
[2022-03-25] MEDS: FAMOTIDINE 20 MG TAB FT SCH (09:31)
[2022-03-25] MEDS: SODIUM BICARB 325 MG TAB PO SCH ×2 (09:32→13:13)
[2022-03-25] MEDS: CALCIUM CARBONATE 500 MG TAB PO SCH ×3 (09:32→21:24)
[2022-03-25] MEDS: GUAIFENESIN 600 MG SA TAB PO SCH ×2 (09:32→21:25)
[2022-03-25] MEDS: carvediloL 25 MG TAB PO SCH ×2 (09:32→18:46)
[2022-03-25] MEDS ORDERED: MAGNESIUM SULFATE 1 gm IVPB 1 GM/100 ML BAG IV ONE (09:42)
[2022-03-25] MEDS ORDERED: POTASSIUM 25 MEQ EFFERV TAB PO ONE (09:44)
[2022-03-25] MEDS: POTASS/SODIUM PHOSPHATE 1 PKT POWD.PACK PO SCH ×3 (10:54→12:00)
[2022-03-25] MEDS ORDERED: ALBUTEROL 2.5 MG/3 ML NEB SOL NEB PRN (14:00)
[2022-03-25] MEDS: DOXAZOSIN 2 MG TAB PO SCH (21:25)
[2022-03-26] MEDS: HYDRALAZINE HCL 20 MG/ML VIAL IV PRN (01:23)
--- NOTE | 2022-03-26 02:09 | PN ---
Date of Progress Note: 03/25/2022 Subjective: Acute kidney injury. The patient is complaining of lower extremity edema. She has hist ory of sepsis, UTI, pneumonia. She denies PND, orthopnea. Physical Examination: Lungs: Clear to auscultation bilaterally. Heart: S1, S2. Abdomen: Soft, benign. Extremities: Slight edema. Impression And Plan: 1.Acute kidney injury secondary to prerenal azotemia complicated by gastrointestinal fluid loss. Re nal function is gradually improving. Encourage p.o. fluid intake. Continue low-sodium diet. Monito r electrolytes. anion gap metabolic acidosis due to renal tubular acidosis and gastrointes tinal fluid loss. Continue to monitor electrolytes. 2.Hypophosphatemia. The patient will receive Neutra-Phos. 3.Hyponatremia. Avoid hypotonic IV fluids. 4.Diabetes mellitus. Continue insulin. Avoid metformin. 5.Rectal bleeding, per primary team. 6.Sepsis secondary to urinary tract infection with pneumonia. Continue antibiotics, . EB/MODL Voice ID: [id number] Report ID: [id number]
[2022-03-26] MEDS: Meropenem 1,000 MG in NA CHLORIDE 0.9% 100 ML IV SCH (02:44)
[2022-03-26] MEDS: carvediloL 25 MG TAB PO SCH ×2 (04:52→17:59)
[2022-03-26 06:09] LABS: Absolute Lymphocytes (CBC) 1.2 K/uL (0.7-4.9); Hematocrit 26.4 % (36.0-45.0); Lymphocytes % 14.6 % (15.3-44.8); MPV 7.9 fL (7.6-11.3); RBC Red Blood Cell Count 3.01 M/uL (3.86-4.86)
[2022-03-26 06:29] LABS: Albumin 2.4 g/dL (3.4-5.0); Magnesium 1.8 mg/dL (1.8-2.4); Phosphorus 2.4 mg/dL (2.5-4.9); Potassium 3.6 mmol/L (3.5-5.1)
[2022-03-26] MEDS ORDERED: MAGNESIUM SULFATE 1 gm IVPB 1 GM/100 ML BAG IV ONE (06:55)
--- NOTE | 2022-03-26 07:17 | RAD REPORT ---
EXAM DESCRIPTION: RAD - Chest Single View - 03/26/2022 5:11 am CLINICAL HISTORY: pneumonia COMPARISON: CT abdomen March 21, portable chest March 21 TECHNIQUE: AP portable chest image was obtained 03/26/2022 5:11 am . FINDINGS: Patchy left base opacification is present partially obscuring the left hemidiaphragm. Left costophrenic angle blunting is present. Minimal opacification seen in the right lung base. No failur e or volume overload. Heart and vasculature are normal. No measurable pleural effusion and no pneumot horax. No acute bony abnormality seen. No acute aortic findings suspected. IMPRESSION: Left base infiltrate remains. Significant progression from the March 21 imaging is not louise pected. Very minimal patchy right base opacification.
[2022-03-26] MEDS: INSULIN -REGULAR HUMAN 50 UNIT/0.5 ML ML SQ SCH ×4 (07:30→21:00)
[2022-03-26] MEDS ORDERED: POTASSIUM CL SA 10 MEQ TAB PO ONE (09:00)
[2022-03-26] MEDS: POTASS/SODIUM PHOSPHATE 1 PKT POWD.PACK PO SCH (09:15)
[2022-03-26] MEDS: FAMOTIDINE 20 MG TAB FT SCH (09:18)
[2022-03-26] MEDS: CALCIUM CARBONATE 500 MG TAB PO SCH ×3 (09:18→20:55)
[2022-03-26] MEDS: FUROSEMIDE 20 MG TABLET PO SCH ×2 (09:18→18:00)
[2022-03-26] MEDS: AMLODIPINE 10 MG TAB PO SCH (09:18)
[2022-03-26] MEDS: HYDRALAZINE HCL 25 MG TABLET PO SCH ×3 (09:19→20:54)
[2022-03-26] MEDS: GUAIFENESIN 600 MG SA TAB PO SCH ×2 (09:19→20:56)
--- NOTE | 2022-03-26 09:38 | ECHO ---
HEIGHT: 5 ft 1 in WEIGHT: 138 lb 8 oz DATE OF STUDY: 03/25/[address]: Marylou Cooper MD 2-DIMENSIONAL: YES M.MODE: YES DOPPLER: YES COLOR FLOW: YES TDS: NO PORTABLE: YES DEFINITY: NO BUBBLE STUDY: NO DIAGNOSIS: ENDOCARDITITS CARDIAC HISTORY: CATHERIZATION: NO SURGERY: NO PROSTHETIC VALVE: NO PACEMAKER: NO MEASUREMENTS (cm) DIASTOLIC (NORMALS) SYSTOLIC (NORMALS) IVSd 1.0 (0.6-1.2) LA Diam 3.5 (1.9-4.0) LVEF 65% LVIDd 4.4 (3.5-5.7) LVIDs 2.9 (2.0-3.5) %FS 35% LVPWd 1.1 (0.6-1.2) Ao Diam 2.5 (2.0-3.7) 2 DIMENSIONAL ASSESSMENT: RIGHT ATRIUM: NORMAL LEFT ATRIUM: NORMAL RIGHT VENTRICLE: NORMAL LEFT VENTRICLE: NORMAL TRICUSPID VALVE: NORMAL MITRAL VALVE: NORMAL PULMONIC VALVE: NORMAL AORTIC VALVE: NORMAL PERICARDIAL EFFUSION: NONE AORTIC ROOT: NORMAL LEFT VENTRICULAR WALL MOTION: NORMAL. DOPPLER/COLOR FLOW: NORMAL. COMMENTS: NORMAL 2D ECHO WITH DOPPLER. NO VEGETATION. NO THROMBUS. TECHNOLOGIST: LILO MONROY
--- NOTE | 2022-03-26 10:42 | P.PN ---
Date of Service: 03/25/22 Subjective Subjective: Patient states she is feeling better. Clinical symptoms are improving. Physical Examination - Vital Signs Reviewed - Physical Exam General: Alert HEENT: Atraumatic, Normocephalic Respiratory: Normal air movement Cardiovascular: Regular rate/rhythm, Normal S1 S2 Gastrointestinal: Soft and benign Neurological: Normal speech Assessment And Plan - Plan Sepsis secondary to UTI/pneumonia: Continue with broad-spectrum antibiotic coverage Leukemoid reaction: Repeat labs Normocytic anemia: Hemoglobin stable with no signs of active bleeding Acute kidney injury secondary to sepsis: Renal function stable Diabetes mellitus type [id number]: ACH S Accu-Chek, sliding scale insulin Hypertension: Continue home meds Disposition: For discharge when clinically stable.
--- NOTE | 2022-03-26 10:43 | P.PN ---
Date of Service: 03/26/22 Subjective Subjective: Patient continues to improve. We will get her out of bed and ambulate her. Anticipate discharge over the next 24 to 48 hours. Physical Examination - Vital Signs Reviewed - Physical Exam General: Alert HEENT: Atraumatic, Normocephalic Respiratory: Normal air movement Cardiovascular: Regular rate/rhythm, Normal S1 S2 Gastrointestinal: Soft and benign Neurological: Normal speech Assessment And Plan - Plan Sepsis secondary to UTI/pneumonia: Continue with broad-spectrum antibiotic coverage; change to oral antibiotic Leukemoid reaction: Repeat labs; white blood count has improved Normocytic anemia: Hemoglobin stable with no signs of active bleeding Acute kidney injury secondary to sepsis: Renal function stable Diabetes mellitus type [id number]: ACH S Accu-Chek, sliding scale insulin Hypertension: Continue home meds Disposition: -patient is ambulating without a lot of difficulty. Possible over the next 24 hours
[2022-03-26] MEDS: PIPER TAZO 3.375 GM in NA CHLORIDE 0.9% 100 ML IV SCH ×2 (13:48→17:56)
[2022-03-26] MEDS: ACETAMINOPHEN 325 MG TABLET PO PRN (20:55)
[2022-03-26] MEDS: DOXAZOSIN 2 MG TAB PO SCH (20:55)
[2022-03-27] MEDS: PIPER TAZO 3.375 GM in NA CHLORIDE 0.9% 100 ML IV SCH ×2 (01:01→09:22)
[2022-03-27 06:06] LABS: Absolute Lymphocytes (CBC) 1.5 K/uL (0.7-4.9); Hematocrit 28.5 % (36.0-45.0); Lymphocytes % 17.2 % (15.3-44.8); MPV 7.6 fL (7.6-11.3); RBC Red Blood Cell Count 3.26 M/uL (3.86-4.86)
[2022-03-27 06:19] LABS: Magnesium 1.8 mg/dL (1.8-2.4); Potassium 3.2 mmol/L (3.5-5.1)
[2022-03-27] MEDS: INSULIN -REGULAR HUMAN 50 UNIT/0.5 ML ML SQ SCH ×2 (07:30→10:37)
[2022-03-27] MEDS ORDERED: POTASSIUM 25 MEQ EFFERV TAB PO ONE (09:00)
[2022-03-27] MEDS ORDERED: MAGNESIUM SULFATE 1 gm IVPB 1 GM/100 ML BAG IV ONE (09:00)
[2022-03-27] MEDS: HYDRALAZINE HCL 25 MG TABLET PO SCH (09:20)
[2022-03-27] MEDS: CALCIUM CARBONATE 500 MG TAB PO SCH (09:21)
[2022-03-27] MEDS: FAMOTIDINE 20 MG TAB FT SCH (09:21)
[2022-03-27] MEDS: FUROSEMIDE 20 MG TABLET PO SCH (09:21)
[2022-03-27] MEDS: POTASS/SODIUM PHOSPHATE 1 PKT POWD.PACK PO SCH (09:21)
[2022-03-27] MEDS: AMLODIPINE 10 MG TAB PO SCH (09:22)
[2022-03-27] MEDS: GUAIFENESIN 600 MG SA TAB PO SCH (09:22)
[2022-03-27] MEDS: carvediloL 25 MG TAB PO SCH (09:23)
[2022-03-27] MEDS: CALCITROL 0.25 MCG CAP PO SCH (10:47)
[2022-03-27 12:38] VITALS: BP 140/57; TEMP 97.6
[2022-03-27] MEDS: SOD FERRIC GLUC COMPLX/SUCROSE 250 MG in NA CHLORIDE 0.9% 250 ML IV SCH (13:00)
--- NOTE | 2022-03-27 14:24 | PN ---
Date of Progress Note: 03/27/2022 Subjective: The patient was admitted to the hospital with acute kidney injury secondary to prerenal secondary to GI loss. The patient also had rectal bleed. Physical Examination: Vital Signs: Blood pressure 151/65, pulse of 101, afebrile. The patient's blood pressure still not controlled. Chest: Clear to auscultation. Heart: S1, S2. Regular. Abdomen: Soft, nontender. Extremity: No edema Neurologic: Alert. No focality. Laboratory Data: WBC 8.9, H and H 9.5/28.5. Sodium 140, potassium 3.2, bicarb 33, BUN 17, creatinin e 1.2, GFR of 43. Calcium 8.7. Magnesium 1.8. Current Medications: The patient on include; 1.Zosyn. 2.IV iron. 3.Calcium carbonate. 4.Amlodipine 10 mg. 5.Carvedilol. 6.Cardura 2 mg at bedtime. 7.Hydralazine 75 mg t.i.d. 8.Lasix 20 mg b.i.d. 9.Zofran. 10.Magnesium sulfate. 11.KCl. Assessment And Plan: 1.Acute kidney injury secondary to prerenal, recovered, resolved. I am going to keep holding on the IV fluid. 2.Iron-deficiency anemia. Continue current IV iron. 3.Hypokalemia and hypomagnesemia. We will supplement. 4.Hypertension, not controlled with the presence of hypokalemia. Calculated transtubular potassium gradient is 17 which shows salt wasting. I am going to start the patient on spironolactone. We will send for Aldactone level and we will monitor the patient. Our differential is going to be hyperaldo steronism/RTA. 5.Rectal bleed, as by GI. 6.Acidosis secondary to GI loss, status post bicarb drip. Bicarb drip was discontinued. We will co ntinue on oral bicarb. 7.Hypophosphatemia. We will supplement. 8.Leukocytosis as by primary. The patient was started on Zosyn, responding very well. KITTY/MODL Voice ID: [id number] Report ID: [id number]
[2022-03-28] MEDS ORDERED: SPIRONOLACTONE 25 MG TABLET PO SCH (09:00)
== END 2022-03-27 14:53 | disposition home or self-care (01) | DRG 871 ==
LOC: ER 21:22 → ERHOLD 03-21 01:52 → 2ND 03-21 12:22
PROVIDERS: ADMIT Internal Medicine Nephrology; ATTEND Internal Medicine Nephrology
DX: A41.59 Other Gram-negative sepsis (principal); N17.0 Acute kidney failure with tubular necrosis; J18.9 Pneumonia, unspecified organism; N39.0 Urinary tract infection, site not specified; E87.2 Acidosis; E87.1 Hypo-osmolality and hyponatremia; K62.5 Hemorrhage of anus and rectum; J45.901 Unspecified asthma with (acute) exacerbation; N25.81 Secondary hyperparathyroidism of renal origin; K91.2 Postsurgical malabsorption, not elsewhere classified; R65.20 Severe sepsis without septic shock; B96.89 Other specified bacterial agents as the cause of diseases classified elsewhere; D50.9 Iron deficiency anemia, unspecified; E87.6 Hypokalemia; E83.42 Hypomagnesemia; E26.9 Hyperaldosteronism, unspecified; E83.39 Other disorders of phosphorus metabolism; D72.823 Leukemoid reaction; R06.03 Acute respiratory distress; E83.51 Hypocalcemia; I10 Essential (primary) hypertension; I48.91 Unspecified atrial fibrillation; E11.40 Type 2 diabetes mellitus with diabetic neuropathy, unspecified; Z90.49 Acquired absence of other specified parts of digestive tract; Z20.822 Contact with and (suspected) exposure to COVID-19
CPT/HCPCS: 36415; 71045; 74176; 80048; 80053; 80069; 80076; 81003; 81015; 82088; 82306; 82550; 82570; 82728; 82805; 82947; 83540; 83605; 83690; 83735; 83880; 83970; 84132; 84145; 84156; 84300; 84439; 84443; 84466; 84484; 84550; 85025; 85610; 86850; 86900; 86901; 87040; 87077; 87086; 87088; 87186; 87205; 87804; 93005; 93306; 94010; 94640; 96365; 96367; 96375; 99284; J0360; J0456; J0610; J1815; J2185; J2543; J2916; J2920; J3475; J3480; J3490; J7030; J7040; J7050; U0003

== ENCOUNTER 2022-04-08 20:21 | Inpatient (IN) | payer MEDICARE ==
--- OUTSIDE RECORDS SUMMARY | 2022-04-08 20:24 | XMS REPORT | Continuity of Care Document ---
:1945 Author Organization [facility] t Address [address] [place] [address] Care Team Providers Name Role Phone Bing Christie Attending Clinician Unavailable Walt Attending Clinician Unavailable Loco Attending Clinician Unavailable TRICIA Attending Clinician Unavailable Payers Payer Name Policy Type Policy Number Effective Date Expiration Date S [facility] [place] [employer] [id number] (MEDICARE 00:00:00 REPLACEMENT HMO) Problems [...] test strips 2-18 [facility] 00:00: - [facility] GlipiZIDE GlipiZIDE Yes Fatou 1 tablet Common Millender [facility] Doxazosin Doxazosin Yes Fatou 1 tablet Common Mesylate Mesylate Millender in evening Spirit for high - [facility] blood [facility] Coreg Coreg Yes Fatou 1 tablet Common Millender [facility] Diazepam Diazepam Yes [facility]ou [facility] tablet [facility] Sodium Sodium Yes Fatou 2 grams Common Chloride Chloride Millender with meals [facility] Olmesartan Olmesartan Yes Fatou 1 tablet Common Medoxomil Medoxomil Millender [facility] Lancets Lancets Yes Fatou as Common Millender directed Spirit (for one - [facility] touch [facility] Aspirin Aspirin Yes Fatou 1 tablet Comm on [facility] Acetaminoph Acetaminoph Yes Fatou 2 tablet Common en-Codeine en-Codeine Millender as needed [facility] Glucose Glucose Yes Fatou as Common testing testing Millender directed Spirit strips strips (for one - [facility] Amlodipine Amlodipine Yes Fatou 1 tablet Common Besylate Besylate Millender Sp vidhi [facility] Ferrous Ferrous Yes Fatou 1 tablet Comm on Sulfate Sulfate Millender Spir it [facility] Immunizations Ordered Immunization Filled Immunization Date Status Commen ts Source Name Name FLUZONE HIGH DOSE FLUZONE HIGH DOSE 2019-08-16 Completed [facility] OVER 65 OVER 65 00:00:00 [facility] Pneumovax Pneumovax 2018-12-01 Completed [facility] 00:00:00 [facility] Procedures Procedure Date / Time Performed Performing Clinician Sour e Physical Therapy 2019-11-25 00:00:00 [place] [facility] Encounters Start End Encounter Admission Attending Care Care Encounter Source Date/Time Date/Time Type Type Clinicians Facility Department ID 2022-04-03 Outpatient Christie, Na STLMLC STLMLC [id number] Common 14:58:01 [facility] 2022-03-15 Outpatient Christie, Na STLMLC STLMLC [id number] 2 Common 09:30:00 [facility] 2022-02-01 Outpatient Christie, Na STLMLC STLMLC [id number] Common 09:14:00 [facility] 2021-12-05 Outpatient Christie, Na STLMLC STLMLC [id number] 2 Common 14:30:46 [facility] 2021-12-05 Outpatient Christie, Na STLMLC STLMLC [id number] 2 Common 13:40:57 [facility] 2021-12-05 Outpatient Christie, Na STLMLC STLMLC [id number] 2 Common 13:36:53 [id number] [facility] 2021-12-05 Outpatient Christie, Na STLMLC STLMLC [id number] 2 Common 13:34:35 [facility] 2021-12-05 Outpatient Christie, Na STLMLC STLMLC [id number] 2 Common 13:29:46 [id number] [facility] 2021-12-05 Outpatient Christie, Na STLMLC STLMLC [id number] 2 Common 13:24:32 [id number] [facility] 2021-12-05 Outpatient Christie, Na STLMLC STLMLC [id number] 2 Common 13:24:05 [id number] [facility] 2021-12-05 Outpatient Christie, Na STLMLC STLMLC [id number] 2 Common 12:27:05 [id number] [facility] 2021-12-05 Outpatient Christie, Na STLMLC STLMLC [id number] 2 Common 12:26:31 [id number] [facility] 2021-12-05 Outpatient STLMLC STLMLC [id number] Common 12:15:30 [id number] [facility] 2021-12-05 Outpatient Godoy, Kin STLMLC STLMLC [id number] Common 12:09:56 [id number] [facility] 2021-12-05 Outpatient Millender, STLMLC STLMLC [id number] Common 11:44:53 Fatou [id number] [facility] 2021-12-05 Outpatient Millender, STLMLC STLMLC [id number] Common 11:25:49 Fatou [id number] [facility] 2021-12-05 Outpatient Millender, STLMLC STLMLC [id number] Common 11:12:23 Fatou [id number] [facility] 2021-12-05 Outpatient Millender, STLMLC STLMLC [id number] Common 11:05:58 Fatou [id number] [facility] 2021-12-05 Outpatient Millender, STLMLC STLMLC [id number] Common 10:57:38 Fatou [id number] [facility] 2022-04-03 2022-04-03 ambulatory STLMLC STLMLC [id number] Common 00:00:00 00:00:00 [facility] 2022-03-28 2022-03-28 ambulatory STLMLC STLMLC [id number] Common 00:00:00 00:00:00 [facility] 2022-03-19 2022-03-19 ambulatory STLMLC STLMLC [id number] Common 00:00:00 00:00:00 [facility] 2022-03-19 2022-03-19 ambulatory STLMLC STLMLC [id number] Common 00:00:00 00:00:00 [facility] 2022-03-19 2022-03-19 ambulatory STLMLC STLMLC [id number] Common 00:00:00 00:00:00 [facility] 2022-02-25 2022-02-25 ambulatory STLMLC STLMLC [id number] Common 00:00:00 00:00:00 [facility] 2022-02-18 2022-02-18 ambulatory STLMLC STLMLC [id number] Common 00:00:00 00:00:00 [facility] 2022-01-29 2022-01-29 ambulatory STLMLC STLMLC [id number] Common 00:00:00 00:00:00 [facility] 2022-01-04 2022-01-04 ambulatory STLMLC STLMLC [id number] Common 00:00:00 00:00:00 [facility] 2022-01-03 2022-01-03 Outpatient DMG DMG [id number] [facility]oted 08:01:00 08:01:00 [id number] 2021-11-13 2021-11-13 ambulatory STLMLC STLMLC [id number] Common 00:00:00 00:00:00 [facility] 2021-10-02 2021-10-02 ambulatory STLMLC STLMLC [id number] Common 00:00:00 00:00:00 [facility] 2021-08-15 2021-08-15 Outpatient STLMLC STLMLC [id number] Common 00:00:00 00:00:00 [facility] 2021-07-03 2021-07-03 Outpatient STLMLC STLMLC [id number] Common 00:00:00 00:00:00 [facility] 2021-06-05 2021-06-05 Outpatient STLMLC STLMLC [id number] Common 00:00:00 00:00:00 [facility] 2021-06-04 2021-06-04 Outpatient STLMLC STLMLC [id number] Common 00:00:00 00:00:00 [facility] 2021-05-21 2021-05-21 Outpatient STLMLC STLMLC [id number] Common 00:00:00 00:00:00 [facility] 2021-05-11 2021-05-11 Outpatient STLMLC STLMLC [id number] Common 00:00:00 00:00:00 [facility] 2021-03-13 2021-03-13 Outpatient STLMLC STLMLC [id number] Common 00:00:00 00:00:00 [facility] 2021-03-13 2021-03-13 Outpatient STLMLC STLMLC [id number] Common 00:00:00 00:00:00 [facility] 2020-12-22 2020-12-22 Outpatient STLMLC STLMLC [id number] Common 00:00:00 00:00:00 [facility] 2020-12-15 2020-12-15 Outpatient STLMLC STLMLC [id number] Common 00:00:00 00:00:00 [facility] 2020-12-11 2020-12-11 Outpatient STLMLC STLMLC [id number] Common 00:00:00 00:00:00 [facility] 2020-07-25 2020-07-25 Outpatient STLMLC STLMLC [id number] Common 00:00:00 00:00:00 [facility] 2020-07-20 2020-07-20 [facility] [id number] Common 13:00:00 13:00:00 [facility] it [facility] 2020-07-18 2020-07-18 [facility] [id number] Common 09:58:00 09:58:00 [facility] [address] [facility] 2020-06-15 2020-06-15 [facility] [id number] Common 09:00:00 09:00:00 t Specialty/U Sp vidhi Specialty rology [facility] /[facility] 2020-04-19 2020-04-19 [facility] [id number] Common 08:40:00 08:40:00 t [facility] [address] [facility] 2020-02-29 2020-02-29 Appointmen [facility] [id number] [place] 11:00:00 11:00:00 t; SHRUTI CLARKE M.D. - [facility] [place] [facility] [place] [facility] 2020-02-21 2020-02-21 [facility] [id number] Common 09:54:00 09:54:00 t [facility] [address] [facility] 2020-01-18 2020-01-18 [facility] [id number] Common 08:30:00 08:30:00 t [facility] [address] [facility] 2020-01-04 2020-01-04 Appointmen [facility] [id number] [place] 11:15:00 11:15:00 t; SHRUTI CLARKE M.D. - [place] [facility] [place] [facility] 2019-12-16 2019-12-16 [facility] [id number] Common 09:00:00 09:00:00 t Specialty/U Sp vidhi Specialty rology [facility] /[facility] 2019-11-25 2019-11-25 Appointmen [facility] [id number] [place] 14:30:00 14:30:00 t; SHRUTI CL[facility] M.D. - [facility] 2019-11-23 2019-11-23 [facility] [id number] Common 14:30:00 14:30:00 t [facility] it [address] [facility] 2019-11-08 2019-11-08 [facility] [id number] Common 13:00:00 13:00:[address] [facility] 2019-10-19 2019-10-19 [facility] [id number] Common 10:00:00 10:00:[address] [facility] 2019-09-14 2019-09-14 [facility] [id number] Common 10:31:00 10:31:[address] [facility] 2019-09-09 2019-09-09 [facility] [id number] Common 19:04:00 19:04:[address] [facility] 2019-09-09 2019-09-09 [facility] [id number] Common 09:00:00 09:00:[address] [facility] 2019-08-16 2019-08-16 [facility] [id number] Common 08:20:00 08:20:[address] [facility] 2019-07-31 2019-07-31 [facility] [id number] Common 02:03:00 02:03:[address] [facility] 2019-07-21 2019-07-21 [facility] [id number] Common 16:39:00 16:39:[address] [facility] 2019-07-20 2019-07-20 [facility] [id number] Common 11:20:00 11:20:[address] [facility] 2019-06-17 2019-06-17 [facility] [id number] Common 16:25:00 16:25:[address] [facility] 2019-06-16 2019-06-16 [facility] [id number] Common 09:45:00 09:45:00 t Specialty/U Sp vidhi Specialty rology - [facility] /[facility] 2019-05-17 2019-05-17 [facility] [id number] Common 19:51:00 19:51:[address] [facility] 2019-05-12 2019-05-12 [facility] [id number] Common 12:59:00 12:59:[address] [facility] 2019-05-12 2019-05-12 [facility] [id number] Common 08:00:00 08:00:[address] [facility] 2019-05-04 2019-05-04 [facility] [id number] Common 14:00:00 14:00:00 t [facility] [address] Spir [address] Road [facility] 2019-02-22 2019-02-22 [facility] [id number] Common 10:40:00 10:40:00 t [facility] [address] Sp[address] [facility] 2019-01-13 2019-01-13 [facility] [id number] Common 13:00:00 13:00:00 t Specialty/U Sp vidhi Specialty rology - [facility] /[facility] 2019-01-06 2019-01-06 [facility] [id number] Common 13:30:00 13:30:00 t [facility] [address] Sp[address] [facility] 2019-01-04 2019-01-04 [facility] [id number] Common 08:15:00 08:15:00 t Specialty/U Sp vidhi Specialty rology - [facility] /[facility] 2018-12-28 2018-12-28 [facility] [id number] Common 11:34:00 11:34:00 t [facility] [address] Sp[address] [facility] 2018-12-01 2018-12-01 [facility] [id number] Common 09:45:00 09:45:[address] [facility] 2018-11-24 2018-11-24 [facility] [id number] Common 21:55:00 21:55:[address] [facility] 2018-11-24 2018-11-24 [facility] [id number] Common 19:59:00 19:59:[address] [facility] 2018-11-24 2018-11-24 [facility] [id number] Common 09:45:00 09:45:00 t [facility] [address] [facility] 2018-07-06 2018-07-06 [facility] [id number] Common 11:30:00 11:30:00 t Specialty/U Sp vidhi Specialty rology - [facility] 2018-06-22 2018-06-22 [facility] [id number] Common 13:46:00 13:46:00 t Specialty/U Sp vidhi Specialty rology - [facility] /[facility] 2018-06-18 2018-06-18 [facility] [id number] Common 14:36:00 14:36:[address] [facility] 2018-06-17 2018-06-17 [facility] [id number] Common 10:30:00 10:30:00 t Specialty/U Sp vidhi Specialty rology - [facility] /[facility] 2018-05-28 2018-05-28 [facility] [id number] Common 14:15:00 14:15:[address] [facility] 2018-03-13 2018-03-13 [facility] [id number] Common 08:43:00 08:43:[address] [facility] 2018-03-04 2018-03-04 [facility] [id number] Common 10:15:00 10:15:00 t [facility] it [facility] Results Test Description Test Time Test Comments Results Result Sour e Comments [U] XR HAND MIN 3 2019-11-25 [facility] VWS BILATERAL 13:21:00 acquired, not reported on this accession number. [U] XRAY SPINE 2019-11-25 [facility] LUMBOSACRAL 2 OR 3 13:18:00 acquired, not [id number] [id number] reported on this accession number. [U] XRAY ANKLE MIN 2019-11-25 [facility] 3 VWS RIGHT [id number] 13:17:00 acquired, not reported on this accession number. [U] XRAY SPINE 2019-11-25 [facility] CERVICAL 2 OR 3 13:17:00 acquired, not [id number] [id number] reported on this accession number.
--- NOTE | 2022-04-08 21:50 | RAD REPORT ---
EXAM DESCRIPTION: RAD - Chest Single View - 04/08/2022 9:41 pm CLINICAL HISTORY: CONGESTION COMPARISON: Chest Single View dated 03/26/2022; Chest Single View dated 03/20/2022; Chest Single View dated 08/30/2019; Chest Single View dated 08/28/2019; Abdomen Pelvis Wo Contrast dated 03/21/2022 FINDINGS: Lines: None. Lungs: Mild basilar airspace opacities are again identified, slightly progressed at the right lung ba se from prior. Pleural: No significant pleural effusions or pneumothorax. Cardiac: Stable size and configuration Bones: No acute fractures. ACDF in the cervical spine. Other: IMPRESSION: Mild basilar airspace disease which has slightly worsened compared with 03/26/2022 at th e right lung base.
[2022-04-08 22:05] LABS: Hematocrit 25.4 % (36.0-45.0); Lymphocytes % 15.3 % (15.3-44.8); MCV 85.9 fL (80-100); MPV 8.3 fL (7.6-11.3); RBC Red Blood Cell Count 2.96 M/uL (3.86-4.86)
[2022-04-08 22:20] LABS: Protime INR 0.88
[2022-04-08 22:21] LABS: ALT/SGPT 20 U/L (12-78); Albumin 2.6 g/dL (3.4-5.0); Alkaline Phosphatase 67 U/L (45-117); BUN Blood Urea Nitrogen 69 mg/dL (7-18); Bicarbonate 11 mmol/L (21-32); Bilirubin Total 0.2 mg/dL (0.2-1.0); Glomerular Filtration Rate 4 ml/min (=/>90); Glucose Level 133 mg/dL (74-106); Lipase 806 U/L (73-393); NT PRO-BNP 10398 pg/mL (<450); Protein, Total 6.4 g/dL (6.4-8.2); Troponin High Sensitivity 9.7 pg/mL (<58.9)
[2022-04-08] MEDS ORDERED: NA CHLORIDE 0.9% 1,000 ML ONE (22:21)
[2022-04-08 22:23] LABS: AST/SGOT 16 U/L (15-37); Bilirubin Direct < 0.1 mg/dL (0-0.2); Magnesium 2.4 mg/dL (1.8-2.4); Potassium 5.6 mmol/L (3.5-5.1)
[2022-04-08 22:30] LABS: Sodium Level 113 mmol/L (136-145)
[2022-04-08 22:37] LABS: Thyroid Stimulating Hormone 3.79 uIU/mL (0.360-3.740)
[2022-04-08 22:54] LABS: Arterial Blood Carboxyhemoglob 0.8 % (0-1.5); Blood Gas Oxyhemoglobin 95.6 % (94-97); Blood O2 Saturation 97.5 % (92-98.5)
--- NOTE | 2022-04-08 22:55 | EDPHYS ---
Physician Documentation [facility] Name: Jesi Lee Age: 76 yrs Sex: Female : 1945 Arrival Date: 04/08/2022 Time: 20:23 Bed 5 Private MD: ED Physician Henok Mcginnis HPI: 04/08 21:36 This 76 yrs old Female presents to ER via Wheelchair with complaints of Blood mh7 Pressure Problem. 21:36 The patient presents with dizziness, generalized weakness, fatigue. Onset: The mh7 symptoms/episode began/occurred 1 week(s) ago. Context: occurred at home, occurred while the patient was lying down. Modifying factors: The symptoms are alleviated by nothing, the symptoms are aggravated by nothing. Associated signs and symptoms: Pertinent positives: nausea, vomiting, Pertinent negatives: abdominal pain, agitation, ataxia, blurred vision, chest pain, combativeness, confusion, diaphoresis, focal weakness, head injury, headache, near-syncope, numbness, palpitations, seizure, shortness of breath, syncope, tingling. Severity of symptoms: At their worst the symptoms were moderate 5 day(s) ago, in the emergency department the symptoms are unchanged. Patient's baseline: Neuro: alert and fully oriented, Motor: no deficits, Ambulation: walks without assistance, Speech: normal. The patient has been recently been admitted at [facility], was discharged a couple of weeks ago. Historical: - Allergies: 20:42 Cipro; jb4 - PMHx: 20:42 Diabetes; Diverticulitis; Hypertension; ruptured bowel; jb4 - PSHx: 20:42 bowel resection with colostomy and reversal; hysterectomy; jb4 - Immunization history:: Adult Immunizations up to date. - Social history:: Smoking status: Patient denies any tobacco usage or history of. ROS: 21:36 Constitutional: Negative for fever, chills, and weight loss, Eyes: Negative for injury, mh7 pain, redness, and discharge, ENT: Negative for injury, pain, and discharge, Neck: Negative for injury, pain, and swelling, Cardiovascular: Negative for chest pain, palpitations, and edema, Respiratory: Negative for shortness of breath, cough, wheezing, and pleuritic chest pain, Back: Negative for injury and pain, : Negative for injury, bleeding, discharge, and swelling, MS/Extremity: Negative for injury and deformity, Skin: Negative for injury, rash, and discoloration, Psych: Negative for depression, anxiety, suicide ideation, homicidal ideation, and hallucinations, Allergy/Immunology: Negative for hives, rash, and allergies, Endocrine: Negative for neck swelling, polydipsia, polyuria, polyphagia, and marked weight changes, Hematologic/Lymphatic: Negative for swollen nodes, abnormal bleeding, and unusual bruising. Exam: 21:36 Constitutional: This is a well developed, well nourished patient who is awake, alert, mh7 and in no acute distress. Head/Face: Normocephalic, atraumatic. Eyes: Pupils equal round and reactive to light, extra-ocular motions intact. Lids and lashes normal. Conjunctiva and sclera are non-icteric and not injected. Cornea within normal limits. Periorbital areas with no swelling, redness, or edema. Neck: Trachea midline, no thyromegaly or masses palpated, and no cervical lymphadenopathy. Supple, full range of motion without nuchal rigidity, or vertebral point tenderness. No Meningismus. Chest/axilla: Normal chest wall appearance and motion. Nontender with no deformity. No lesions are appreciated. 21:36 Respiratory: Lungs have equal breath sounds bilaterally, clear to auscultation and percussion. No rales, rhonchi or wheezes noted. No increased work of breathing, no retractions or nasal flaring. Abdomen/GI: Soft, non-tender, with normal bowel sounds. No distension or tympany. No guarding or rebound. No evidence of tenderness throughout. Back: No spinal tenderness. No costovertebral tenderness. Full range of motion. Skin: Warm, dry with normal turgor. Normal color with no rashes, no lesions, and no evidence of cellulitis. MS/ Extremity: Pulses equal, no cyanosis. Neurovascular intact. Full, normal range of motion. 21:36 Psych: Awake, alert, with orientation to person, place and time. Behavior, mood, and affect are within normal limits. 21:36 Cardiovascular: Rate: bradycardic, Rhythm: regular, Pulses: no pulse deficits are appreciated, Heart sounds: normal, normal S1and S2, Edema: is not appreciated, JVD: is not appreciated. 21:36 Neuro: Orientation: is normal, Mentation: is normal, Memory: is normal, Cranial nerves: grossly normal, Cerebellar function: is grossly normal, Motor: is normal, Sensation: is normal, Gait: not tested. seizure activity, is not displayed by the patient, Abnormal movements: there are no abnormal movements. Vital Signs: 20:40 BP 104 / 49; Pulse 49; Resp 18; Temp 98.1(TE); Pulse Ox 100% on R/A; Weight 49.9 kg jb4 (R); Height 5 ft. 1 in. (154.94 cm) (R); Pain 0/10; 22:10 BP 104 / 61 LA Supine (auto/); Pulse 53 MON; sm5 22:15 BP 114 / 53 LA Sitting (auto/); Pulse 53; sm5 22:19 BP 120 / 44 LA Standing (auto/); Pulse 59; sm5 23:00 BP 155 / 75; Pulse 67; Resp 19; Pulse Ox 100% on R/A; 5 04/09 00:30 BP 133 / 40; Pulse 64; Resp 17; Pulse Ox 100% on R/A; 5 04/08 20:40 Body Mass Index 20.78 (49.90 kg, 154.94 cm) jb4 MDM: 04/08 22:51 Differential diagnosis: cardiac arrhythmia, generalized weakness, hypovolemia, mh7 idiopathic dizziness, near-syncope. Data reviewed: vital signs, nurses notes, old medical records, lab test result(s), cardiac enzymes, CBC, electrolytes, EKG, radiologic studies, plain films. Data interpreted: Pulse oximetry: on room air is 100 %. Interpretation: normal. Counseling: I had a detailed discussion with the patient and/or guardian regarding: the historical points, exam findings, and any diagnostic results supporting the discharge/admit diagnosis, lab results, radiology results, the need for further work-up and treatment in the hospital. Response to treatment: the patient's symptoms have mildly improved after treatment. 22:55 Patient medically screened. [facility] 04/08 21:17 Order name: Basic Metabolic Panel; Complete Time: 22:33 [facility] 04/08 21:17 Order name: CBC with Diff; Complete Time: 22:33 [facility] 04/08 21:17 Order name: LFT's; Complete Time: 22:33 [facility] 04/08 21:17 Order name: Magnesium; Complete Time: 22:33 [facility] 04/08 21:17 Order name: NT PRO-BNP; Complete Time: 22:33 [facility] 04/08 21:17 Order name: PT-INR; Complete Time: 22:33 [facility] 04/08 21:17 Order name: Troponin HS; Complete Time: 22:33 [facility] 04/08 21:17 Order name: Lipase; Complete Time: 22:33 [facility] 04/08 21:36 Order name: Lactate; Complete Time: 22:33 [facility] 04/08 21:36 Order name: TSH; Complete Time: 22:50 [facility] 04/08 21:53 Order name: COVID-19 SARS RT PCR (Document "Date of Onset" if Symptomatic); Complete [facility] Time: 00:49 04/08 22:34 Order name: Blood Culture Adult (2) [facility] 04/08 22:34 Order name: Arterial Blood Gas; Complete Time: 00:10 [facility] 04/08 22:40 Order name: T4 Free; Complete Time: 22:50 [facility] 04/08 21:17 Order name: XRAY Chest (1 view); Complete Time: 21:52 [facility] 04/08 21:17 Order name: EKG; Complete Time: 21:18 [facility] 04/08 21:17 Order name: Cardiac monitoring; Complete Time: 21:38 [facility] 04/08 21:17 Order name: EKG - Nurse/Tech; Complete Time: 21:38 [facility] 04/08 21:17 Order name: IV Saline Lock; Complete Time: 21:28 [facility] 04/08 21:17 Order name: Labs collected and sent; Complete Time: 21:38 [facility] 04/08 21:17 Order name: O2 Per Protocol; Complete Time: 21:38 [facility] 04/08 21:17 Order name: O2 Sat Monitoring; Complete Time: 21:38 [facility] 04/08 22:35 Order name: CT Head Brain wo Cont [facility] 04/08 22:39 Order name: Head Brain Wo Cont [facility] 04/09 01:49 Order name: CBC with Automated Diff; Complete Time: 02:33 [facility] 04/08 21:17 Order name: Urine Dipstick-Ancillary (obtain specimen) [facility] 04/08 21:36 Order name: Orthostatics; Complete Time: 22:29 7 Administered Medications: 22:36 Drug: NS 0.9% 1000 ml Route: IV; Rate: 1000 ml; Site: right antecubital; [facility] 04/09 00:51 Follow up: IV Status: Completed infusion; IV Intake: 1000ml [facility] 04/08 23:24 Drug: Calcium Chloride 1 grams Route: IVP; Site: right antecubital; [facility] 04/09 00:50 Follow up: Response: No adverse reaction [facility] 04/08 23:24 Drug: Rocephin (cefTRIAXone) 1 grams Route: IV; Rate: per protocol; Site: right [facility] antecubital; 23:58 Follow up: IV Status: Completed infusion; IV Intake: 50ml [facility] 23:25 Drug: Sodium Bicarbonate 1 amp Route: IVP; Site: right antecubital; [facility] 04/09 00:50 Follow up: Response: No adverse reaction [facility] 00:20 Drug: AZITHromycin 500 mg Route: IVPB; Infused Over: 1 hrs; Site: right antecubital; [facility] 01:48 Follow up: IV Status: Infusion continued upon admission [facility] Disposition Summary: 04/08/22 22:55 Hospitalization Ordered Hospitalization Status: Inpatient Admission [facility] Provider: Marylou Cooper [facility] Condition: Stable [facility] Problem: new [facility] Symptoms: have improved [facility] Bed/Room Type: [place] [id number] Room Assignment: 223(04/09/22 00:41) cg Diagnosis - Hypo-osmolality and hyponatremia [facility] - Acute Kidney Injury mh - Dizziness and giddiness [facility] - Dehydration [facility] Forms: - Medication Reconciliation Form [facility] - SBAR form [facility] Signatures: Dispatcher [employer] Vibha Terry RN RN cg John Romero RN RN jb4 Henok Mcginnis MD MD mh7 Maya Maloney RN RN sm5 Adeola Vázquez PA PA sb3 Corrections: (The following items were deleted from the chart) 00:41 04/08 22:55 [facility] cg
--- NOTE | 2022-04-08 22:55 | ER ---
Nurse's Notes [facility] Name: Jesi Lee Age: 76 yrs Sex: Female : 1945 Arrival Date: 04/08/2022 Time: 20:23 Bed 5 Private MD: Diagnosis: Hypo-osmolality and hyponatremia;Acute Kidney Injury;Dizziness and giddiness;Dehydration Presentation: 04/08 20:40 Chief complaint: Patient states: She was recently discharged from here. After getting jb4 her home, she has been falling a lot, and been lethargic, and dizzy. Her blood pressure has been in the low 100's. Coronavirus screen: At this time, the client does not indicate any symptoms associated with coronavirus-19. Ebola Screen: No symptoms or risks identified at this time. Initial Sepsis Screen: Does the patient meet any 2 criteria? No. Patient's initial sepsis screen is negative. Does the patient have a suspected source of infection? No. Patient's initial sepsis screen is negative. Risk Assessment: Do you want to hurt yourself or someone else? Patient reports no desire to harm self or others. Onset of symptoms was April 08, 2022. Transition of care: patient was not received from another setting of care. 20:40 Method Of Arrival: Wheelchair jb4 20:40 Acuity: RENETTA 3 jb4 Historical: - Allergies: 20:42 Cipro; jb4 - PMHx: 20:42 Diabetes; Diverticulitis; Hypertension; ruptured bowel; jb4 - PSHx: 20:42 bowel resection with colostomy and reversal; hysterectomy; jb4 - Immunization history:: Adult Immunizations up to date. - Social history:: Smoking status: Patient denies any tobacco usage or history of. Screenin:09 Abuse screen: Denies threats or abuse. Denies injuries from another. Nutritional sm5 screening: No deficits noted. Tuberculosis screening: No symptoms or risk factors identified. Fall Risk Fall in past 12 months (25 points). No secondary diagnosis (0 pts). No IV (0 pts). Ambulatory Aid- None/Bed Rest/Nurse Assist (0 pts). Gait- Normal/Bed Rest/Wheelchair (0 pts) Mental Status- Oriented to own ability (0 pts). Total Abrams Fall Scale indicates Low Risk Score (25-44 pts). Fall prevention measures have been instituted. Side Rails Up X 2 Frequent Obs/Assesments occuring As available Patient and Family Educated on Fall Prevention Program and strategies. Assessment: 21:15 General: Appears in no apparent distress. Behavior is cooperative. sm5 21:15 Pain: Denies pain. Neuro: Ortiz Agitation-Sedation Scale (RASS): 0 - Alert and Calm sm5 Level of Consciousness is awake, alert, obeys commands, Oriented to person, place, time, situation, Reports dizziness. Cardiovascular: Rhythm is junctional rhythm. Cardiovascular: No deficits noted. Capillary refill < 3 seconds Patient's skin is warm and dry. Respiratory: No deficits noted. Airway is patent Trachea midline Respiratory effort is even, unlabored. 22:30 Reassessment: No changes from previously documented assessment. Patient and/or family 5 updated on plan of care and expected duration. Pain level reassessed. 23:18 Reassessment: No changes from previously documented assessment. 5 Vital Signs: 20:40 BP 104 / 49; Pulse 49; Resp 18; Temp 98.1(TE); Pulse Ox 100% on R/A; Weight 49.9 kg jb4 (R); Height 5 ft. 1 in. (154.94 cm) (R); Pain 0/10; 22:10 BP 104 / 61 LA Supine (auto/); Pulse 53 MON; sm5 22:15 BP 114 / 53 LA Sitting (auto/); Pulse 53; sm5 22:19 BP 120 / 44 LA Standing (auto/); Pulse 59; sm5 23:00 BP 155 / 75; Pulse 67; Resp 19; Pulse Ox 100% on R/A; sm5 04/09 00:30 BP 133 / 40; Pulse 64; Resp 17; Pulse Ox 100% on R/A; sm5 04/08 20:40 Body Mass Index 20.78 (49.90 kg, 154.94 cm) jb4 ED Course: 04/08 20:23 Patient arrived in ED. jj6 20:42 Triage completed. jb4 20:42 Arm band placed on right wrist. jb4 20:46 Henok Mcginnis MD is Attending Physician. 7 20:52 Maya Maloney RN is Primary Nurse. sm5 21:09 Patient has correct armband on for positive identification. Bed in low position. Call 5 light in reach. Side rails up X2. 21:28 Inserted saline lock: 20 gauge in right antecubital area, using aseptic technique. 5 Blood collected. 21:40 XRAY Chest (1 view) In Process Unspecified. EDMS 22:52 Marylou Cooper MD is Hospitalizing Provider. [facility] 23:07 Head Brain Wo Cont In Process Unspecified. EDUT 04/09 00:50 No provider procedures requiring assistance completed. [facility] 01:49 Patient transferred, IV remains in place. 5 Administered Medications: 04/08 22:36 Drug: NS 0.9% 1000 ml Route: IV; Rate: 1000 ml; Site: right antecubital; 5 04/09 00:51 Follow up: IV Status: Completed infusion; IV Intake: 1000ml 5 04/08 23:24 Drug: Calcium Chloride 1 grams Route: IVP; Site: right antecubital; 5 04/09 00:50 Follow up: Response: No adverse reaction [facility] 04/08 23:24 Drug: Rocephin (cefTRIAXone) 1 grams Route: IV; Rate: per protocol; Site: right 5 antecubital; 23:58 Follow up: IV Status: Completed infusion; IV Intake: 50ml [facility] 23:25 Drug: Sodium Bicarbonate 1 amp Route: IVP; Site: right antecubital; 5 04/09 00:50 Follow up: Response: No adverse reaction [facility] 00:20 Drug: AZITHromycin 500 mg Route: IVPB; Infused Over: 1 hrs; Site: right antecubital; 5 01:48 Follow up: IV Status: Infusion continued upon admission [facility] Medication: 04/08 21:09 VIS not applicable for this client. 5 Intake: 23:58 IV: 50ml; Total: 50ml. 5 04/09 00:51 IV: 1000ml; Total: 1050ml. [facility] Outcome: 04/08 22:55 Decision to Hospitalize by Provider. [facility] 04/09 01:49 Admitted to Med/surg accompanied by tech, via stretcher, with chart. [facility] Condition: stable Instructed on the need for transfer. 01:50 Patient left the ED. [facility] Signatures: Dispatcher [employer] EDMS John Romero RN RN jb4 Henok Mcginnis MD MD 7 Marycruz Chanel6 Maya Maloney, RN RN sm5 Corrections: (The following items were deleted from the chart) 00:48 04/08 21:15 General: Appears in no apparent distress. 5 5 04/09 00: 00:47 Pain: Denies pain. 5 5 00:47 Neuro: Ortiz Agitation-Sedation Scale (RASS): 0 - Alert and Calm Level of 5 Consciousness is awake, alert, obeys commands, Oriented to person, place, time, situation, Reports dizziness, 5 00:47 Cardiovascular: No deficits noted. Capillary refill < 3 seconds Patient's skin is 5 warm and dry. 5 : 00:47 Respiratory: No deficits noted. Airway is patent Trachea midline Respiratory [facility] effort is even, unlabored, 5 00:47 Cardiovascular: Rhythm is junctional rhythm [facility]5
[2022-04-08] MEDS ORDERED: CEFTRIAXONE 1000 MG/VIAL ONE (23:13)
[2022-04-08] MEDS ORDERED: Caclcium Chloride 10% INJ SYR IV ONE (23:14)
[2022-04-08] MEDS ORDERED: NA CHLORIDE 0.9% 50 ML ONE (23:14)
--- NOTE | 2022-04-09 00:10 | P.HP ---
Certification for Inpatient Patient admitted to: Inpatient With expected LOS: >2 Midnights Patient will require the following post-hospital care: None Practitioner: I am a practitioner with admitting privileges, knowledge of patient current condition, hospital course, and medical plan of care. Services: Services provided to patient in accordance with Admission requirements found in Title 42 Section 412.3 of the Code of Federal Regulations <Adeola Vázquez - Last Filed: 04/09/22 02:57> Patient History Date of Service: 04/09/22 Reason for admission: JOSE, Hyponatremia History of Present Illness: Patient is a 76 y/o F with PMH of NIDDM, HTN, chronic hyponatremia, who presented to the ED with her who reports she has become increasingly lethargic and hypotensive over the past week. BP 104/59 upon arrival. Labs significant for sodium 113, chloride 87, CO2 11, Cr 8.45 (baseline ~1.2), BNP 90417, hgb 7.9. ABG showed metabolic acidosis. Chest xray showed mild basilar airspace disease which has slightly worsened from 2 weeks ago, when she was admitted for sepsis, UTI, and PNA. She was given 1L NS, calcium chloride, meera thromycin, rocephin, and 1 amp sodium bicarb in ED today. Upon my assessment, patient states that she has had decreased PO intake and a few episodes of vomiting today. She denies any pain or shortness of breath. Will admit patient for further evaluation and treatment. 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 She is . - Family History Mother -: Hypertension, Diabetes Sister -: Hypertension, Diabetes Dad & Mom -: Hypertension, Diabetes - Social History Smoking Status: Never smoker Alcohol use: No CD- Drugs: No Caffeine use: Yes Place of Residence: Home <Adeola Vázquez - Last Filed: 04/09/22 02:57> Date of Service: 04/09/22 <Marylou Cooper - Last Filed: 04/15/22 00:17> Allergies No Known Allergies Allergy (Verified 08/24/19 13:01) Home Medications: Amlodipine Besylate 10 mg PO DAILY 03/24/22 Carvedilol [Coreg] 25 mg PO BID 03/24/22 Doxazosin [Cardura*] 2 mg PO BEDTIME 03/24/22 Gabapentin 300 mg PO TID 03/24/22 Hydralazine [Apresoline*] 25 mg PO BID* 03/24/22 Olmesartan Medoxomil 20 mg PO BID* 03/24/22 Review of Systems General: Weakness Gastrointestinal: Nausea, Vomiting <Adeola Vázquez - Last Filed: 04/09/22 02:57> 10-point ROS is otherwise unremarkable <Marylou Cooper - Last Filed: 04/15/22 00:17> Physical Examination - Physical Exam General: Alert, In no apparent distress HEENT: Atraumatic, Other (dry mucous membranes), EOMI, Sclerae nonicteric Neck: Supple, 2+ carotid pulse no bruit, No LAD Respiratory: Clear to auscultation bilaterally, Normal air movement Cardiovascular: No edema, Regular rate/rhythm, Normal S1 S2 Gastrointestinal: Normal bowel sounds, No tenderness Musculoskeletal: No swelling, No tenderness Integumentary: No rashes, No tenderness/swelling Neurological: Normal speech, Normal strength at 5/5 x4 extr, Normal tone, Normal affect - Studies Laboratory Data (last 24 hrs) 04/08/22 21:35: PT 9.7, INR 0.88 04/08/22 21:35: WBC 6.3 D, Hgb 8.4 L, Hct 25.4 L, Plt Count 281 D 04/08/22 21:35: Sodium 113 L* D, Potassium 5.6 H*, BUN 69 H D, Creatinine 8.45 H* D, Glucose 133 H, Magnesium 2.4 D, Total Bilirubin 0.2, AST 16, ALT 20, Alkaline Phosphatase 67, Lipase 806 H <Adeola Vázquez - Last Filed: 04/09/22 02:57> - Studies Microbiology Data (last 24 hrs): 04/08/22 23:11 Blood - Blood Aerobic Blood Culture - Final No growth in 5 days. 04/08/22 23:11 Blood - Blood Anaerobic Blood Culture - Final 04/08/22 23:11 Blood - Blood Aerobic Blood Culture - Final No growth in 5 days. 04/08/22 23:11 Blood - Blood Anaerobic Blood Culture - Final <Marylou Cooper - Last Filed: 04/15/22 00:17> Assessment and Plan - Problems (Diagnosis) (1) Hyponatremia Current Visit: Yes Status: Acute (2) Hypovolemia due to dehydration Current Visit: Yes Status: Acute (3) Acute kidney injury Current Visit: Yes Status: Acute (4) Hyperkalemia Current Visit: Yes Status: Acute (5) Atrial fibrillation Current Visit: No Status: Chronic Qualifiers: Atrial fibrillation type: unspecified Qualified Code(s): I48.91 - Unspecified atrial fibrillation (6) Diabetes Current Visit: Yes Status: Chronic Qualifiers: Diabetes mellitus type: type 2 Diabetes mellitus clay caster insulin use: without clay caster use Diabetes mellitus complication status: with kidney complications Diabetes mellitus complication detail: with chronic kidney disease Chronic kidney disease stage 3 subtype: stage 3b (GFR 30-44) (7) Essential hypertension Current Visit: No Status: Chronic (8) Pneumonia Current Visit: Yes Status: Acute Qualifiers: Pneumonia type: due to unspecified organism Laterality: right Lung location: lower lobe of lung Qualified Code(s): J18.9 - Pneumonia, unspecified organism (9) Anemia Current Visit: Yes Status: Chronic Qualifiers: Anemia type: iron deficiency Iron deficiency anemia type: unspecified iron deficiency Qualified Code(s): D50.9 - Iron deficiency anemia, unspecified (10) Hyperphosphatemia associated with renal failure Current Visit: Yes Status: Acute - Plan -NS @ 200 cc/hr for hypovolemic hyponatremia secondary to dehydration. BMP q6h. -K elevated at 5.6. Lab stated slight hemolysis. Pending repeat. Patient has history of hyperkalemia. Will monitor on telemetry and trend BMP. -Cr elevated at 8.45 (baseline ~1). Urgent dialysis not indicated at this time. Hold nephrotoxic drugs. Nephrology consulted. -JOSE likely prenal secondary to dehydration. renal panel, serum osmolality, urine osmolality, urine creatinine, urine sodium pending -patient has chronic anemia but hgb is down to 7.9 today (slightly below baseline). cont to monitor CBC and transfuse if < 7 -hold diuretics, encourage fluid intake -ACHS accuchecks with mild sliding scale insulin -reconcile and continue home medications as appropriate -heparin for VTE ppx -Full code Discharge Plan: Home Plan to discharge in: Greater than 2 days - Advance Directives Does patient have a Living Will: No Does patient have a Durable POA for Healthcare: Yes - Code Status/Comfort Care Code Status Assessed: Yes (Full) Critical Care: No Time Spent Managing Pts Care (In Minutes): 70 <Adeola Vázquez - Last Filed: 04/09/22 02:57> - Problems (Diagnosis) (1) Acute kidney injury Current Visit: Yes Status: Acute (2) Hyponatremia Current Visit: Yes Status: Acute (3) Diabetes Current Visit: Yes Status: Chronic Qualifiers: Diabetes mellitus type: type 2 Diabetes mellitus clay caster insulin use: without long-term use Diabetes mellitus complication status: with kidney complications Diabetes mellitus complication detail: with chronic kidney disease Chronic kidney disease stage 3 subtype: stage 3b (GFR 30-44) (4) Atrial fibrillation Current Visit: No Status: Chronic Qualifiers: Atrial fibrillation type: unspecified Qualified Code(s): I48.91 - Unspecified atrial fibrillation (5) Essential hypertension Current Visit: No Status: Chronic <Marylou Cooper - Last Filed: 04/15/22 00:17> Date of Service: 04/09/22 Subjective: HPI as mentioned above Physical Examination: Vitals: Afebrile vital signs are stable Physical exam: Cardiovascular: Within normal limits. Lungs: Within normal limits Abdomen: Within normal limits Neuro: Awake, alert, oriented to person place and time Assessment: 1. Acute kidney injury Plan: 1. Continue with current plan of care as mentioned above <Marylou Cooper - Last Filed: 04/15/22 00:17>
[2022-04-09] MEDS ORDERED: AZITHROMYCIN 500 MG INJ IVPB ONE (01:14)
[2022-04-09] MEDS ORDERED: NA CHLORIDE 0.9% 250 ML ONE (01:14)
[2022-04-09 01:48] LABS: Absolute Lymphocytes (CBC) 0.8 K/uL (0.7-4.9); Hematocrit 23.5 % (36.0-45.0); Lymphocytes % 13.2 % (15.3-44.8); MCV 84.9 fL (80-100); MPV 8.1 fL (7.6-11.3); RBC Red Blood Cell Count 2.77 M/uL (3.86-4.86)
[2022-04-09 02:20] LABS: Albumin 2.6 g/dL (3.4-5.0); Bilirubin Total 0.2 mg/dL (0.2-1.0); Magnesium 2.4 mg/dL (1.8-2.4); Potassium 5.2 mmol/L (3.5-5.1); Protein, Total 5.9 g/dL (6.4-8.2)
[2022-04-09] MEDS: ACETAMINOPHEN 500 MG TAB PO PRN ×2 (02:40→13:44)
[2022-04-09 02:41] LABS: Phosphorus 8.7 mg/dL (2.5-4.9)
[2022-04-09] MEDS: HEPARIN 5000 UNIT/ML 1 ML VIAL SQ SCH ×3 (02:41→17:26)
[2022-04-09] MEDS: NA CHLORIDE 0.9% 1,000 ML IV SCH ×3 (02:41→13:58)
[2022-04-09] MEDS: ONDANSETRON 4 MG/2 ML VIAL IV PRN ×2 (03:14→09:08)
[2022-04-09 03:46] VITALS: BMI 20.7
--- NOTE | 2022-04-09 04:44 | P.CNS ---
Date of Consult: 04/09/22 Reason for Consult: Renal failure Requesting Physician: Marylou Cooper Chief Complaint: JOSE, Hyponatremia History of Present Illness: 76F w/ PMHx of urinary bladder prolapse, recent episode of JOSE 2/2 prerenal state, recent episode of sepsis 2/2 pna/uti, Htn, DM2, & chronic hyponatremia, who p/w a 2-day hx of worsening lethargy, found to have severe JOSE, admitted for further eval & mngt. Allergies No Known Allergies Allergy (Verified 08/24/19 13:01) Home Medications: Amlodipine Besylate 10 mg PO DAILY 03/24/22 Carvedilol [Coreg] 25 mg PO BID 03/24/22 Doxazosin [Cardura*] 2 mg PO BEDTIME 03/24/22 Gabapentin 300 mg PO TID 03/24/22 Hydralazine [Apresoline*] 25 mg PO BID* 03/24/22 Olmesartan Medoxomil 20 mg PO BID* 03/24/22 Amox/Clavulanate [Augmentin 875-125 Tab] 1 each PO BID #14 tab 03/27/22 Calcitrol [Rocaltrol*] 0.25 mcg PO Q48H #30 cap 03/27/22 Furosemide [Lasix*] 20 mg PO BIDL #60 tab 03/27/22 Potassium Chloride [K-Dur] 10 meq PO DAILY #30 tab.er.prt 03/27/22 Spironolactone [Aldactone*] 25 mg PO DAILY #30 tab 03/27/22 - Past Medical/Surgical History Diabetic: Yes -: HTN -: Diabetes mellitus type 2, non insulin dependent -: Chronic Hearing loss -: Bowel Resection with Ileostomy bag/reversal -: Chronic hyponatremia -: Hysterectomy -: Cholecystectomy -: remington cataract sx -: 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 She is . - Family History Mother Medical History: Hypertension, Diabetes Sister Medical History: Hypertension, Diabetes Dad & Mom Medical History: Hypertension, Diabetes - Social History Smoking Status: Unknown if ever smoked Alcohol use: No CD- Drugs: No Caffeine use: Yes Place of Residence: Home Review of Systems General: Weakness, Malaise Eyes: Unremarkable ENT: Unremarkable Respiratory: Unremarkable Cardiovascular: Unremarkable Gastrointestinal: Unremarkable Genitourinary: Retention Musculoskeletal: Unremarkable Integumentary: Unremarkable Neurological: Unremarkable Lymphatics: Unremarkable Physical Examination Temp Pulse Resp BP Pulse Ox 96.8 F 61 19 111/59 L 99 04/09/22 03:52 04/09/22 03:52 04/09/22 03:52 04/09/22 03:52 04/09/22 03:52 Laboratory Data (last 24 hrs) 04/08/22 21:35: PT 9.7, INR 0.88 04/08/22 21:35: WBC 6.3 D, Hgb 8.4 L, Hct 25.4 L, Plt Count 281 D 04/08/22 21:35: Sodium 113 L* D, Potassium 5.6 H*, BUN 69 H D, Creatinine 8.45 H* D, Glucose 133 H, Magnesium 2.4 D, Total Bilirubin 0.2, AST 16, ALT 20, Alkaline Phosphatase 67, Lipase 806 H Conclusions/Impression: 1. Acute kidney injury likely 2/2 secondary to obstructive uropathy. Baseline SCr 0-.8-1.0. SCr 8.5 on adm, improved to 7.5 today. Insert jose. Continue IVF as long as she has good urine output. Avoid hypotonic fluids. Monitor renal panel 2. Hypertension. BP variable. Monitor. 3. Metabolic acidosis 2/2 renal dysfxn. Cont bicarb drip. 4. Hyponatremia 2/2 renal dysfxn. Isotonic IVF & jose catheter insertion as above. 5. Hyperkalemia. Improved. IVF + jose cath insertion as above. 6. HyperPO4. Start Sevelamer po tidwm 7. Iron deficiency anemia. Received IV iron recently. 8. DM2. Mngt per primary team.
[2022-04-09 05:52] LABS: Potassium 5.5 mmol/L (3.5-5.1)
[2022-04-09] MEDS: INSULIN -REGULAR HUMAN 50 UNIT/0.5 ML ML SQ SCH ×4 (07:30→20:56)
[2022-04-09] MEDS ORDERED: PNEUMOCOCCAL VACCINE 0.5 ML IMVAC ONE (10:00)
[2022-04-09 11:38] LABS: Potassium 5.2 mmol/L (3.5-5.1)
--- NOTE | 2022-04-09 12:18 | EKG ---
Test Date: 2022-04-08 Test Time: 21:30:27 Finish Cleaner: LOGAN MEASUREMENT RESULTS: Intervals: Rate: 51 SD: QRSD: 74 QT: 458 QTc: 422 [place]: P: SD: QRS: 76 T: 63 INTERPRETIVE STATEMENTS: Junctional rhythm Low voltage QRS Abnormal ECG Compared to ECG 03/20/2022 23:00:41 Junctional rhythm now present Low QRS voltage now present Sinus rhythm no longer present First degree AV block no longer present Electronically Signed On 04-09-22 12:16:33 CDT by Ez Burks
[2022-04-09] MEDS: SEVELAMER CARBONATE 800 MG TABLET PO SCH ×2 (13:44→17:26)
[2022-04-09] MEDS ORDERED: WATER FOR INJ,STERILE 1,000 ML with NA BICARB 8.4% 150 MEQ IV SCH ×2 (14:00)
--- NOTE | 2022-04-09 14:13 | RAD REPORT ---
EXAM DESCRIPTION: CT - Head Brain Wo Cont - 04/09/2022 6:36 am CLINICAL HISTORY: 76-year-old female with dizziness. COMPARISON: 05/12/2021. TECHNIQUE: CT brain without contrast. This exam was performed according to our departmental dose opt imization program which includes use of automated exposure control, adjustment of the mA and/or kV ac cording to patient size and/or use of iterative reconstruction technique. FINDINGS: The ventricles, sulci, and cisterns are within normal limits. The bailon-white matter diff erentiation is preserved. There is no mass effect, midline shift, intra- or extra-axial fluid colle ction/acute hemorrhage. The osseous structures are unremarkable. The paranasal sinuses and mastoi d air cells are clear. IMPRESSION: No acute intracranial abnormalities. Electronically signed by: Maya Lantigua MD 04/08/2022 11:35 PM CDT Due to temporary technical issues with the PACS/Fluency reporting system, reports are being signed by the in house radiologist without review as a courtesy to ensure prompt reporting. The interpreting r adiologist is fully responsible for the content of the report.
[2022-04-09 14:37] LABS: Urine Appearance TURBID (Clear); Urine Bilirubin Negative (Negative); Urine Blood Trace-intact (Negative); Urine Color Yellow (Yellow); Urine Glucose Negative (Negative); Urine Protein 1+ (Negative); Urine Specific Gravity 1.015 (1.005-1.030); Urine Urobilinogen 0.2 mg/dL (0.2-1.0)
--- NOTE | 2022-04-09 14:37 | RAD REPORT ---
EXAM DESCRIPTION: US - Renal Ultrasound-Complete - 04/09/2022 2:28 pm CLINICAL HISTORY: bob assess for hydronephrosis, pyelonephritis Flank pain COMPARISON: Renal Ultrasound-Complete dated 06/08/2019 FINDINGS: Highly echogenic kidneys present bilaterally. Small benign renal cysts are present bilater ally. The right kidney measures 9.7 x 5.4 x 5.2 cm. No hydronephrosis, focal mass or perinephric fluid. The left kidney measures 8.9 x 6.0 x 4.5 cm. No hydronephrosis, focal mass or perinephric fluid. The urinary bladder is incompletely distended without gross abnormality seen. IMPRESSION: Highly echogenic kidneys are present bilaterally compatible with medical renal disease.
[2022-04-09 14:40] LABS: UR PROTEIN 79.1 mg/dL (<11.9); Urine Protein/Creatinine Ratio 0.47 ratio (<0.15)
--- NOTE | 2022-04-09 14:58 | RAD REPORT ---
EXAM DESCRIPTION: RAD - Chest Single View - 04/09/2022 2:48 pm CLINICAL HISTORY: dyspnea Chest pain. COMPARISON: Chest Single View dated 04/08/2022; Chest Single View dated 03/26/2022; Chest Single View dated 03/20/2022; Chest Single View dated 08/30/2019 FINDINGS: Portable technique limits examination quality. Mild interstitial pulmonary edema. Trace pleural effusions. The heart is moderately enlarged. No disp laced fractures. IMPRESSION: Mild CHF.
[2022-04-09 15:12] LABS: Urine Microscopic Reflex ORDER UMIC
[2022-04-09 15:20] LABS: Urine Bacteria <20 /HPF (<20); Urine RBC <5 /HPF (NONE SEEN); Urine Yeast MANY (NONE SEEN); Urine Yeast with Hyphae PRESENT
--- NOTE | 2022-04-09 16:44 | P.CNS ---
Date of Consult: 04/09/22 Urogynecology Consultation HPI: Ms. Lee is a 76 yo female with PMHx of diabetes, HTN who presented to the emergency department with AMS. She was found to have hypernatremia, JOSE, suspected UTI and pneumonia. Patient reported decreased PO intake and vomiting, per did not void for ~2 days. She was started on IV abx and a jose catheter inserted with return of 400ml. Of note she was admitted about 2 weeks ago with urosepsis and JOSE, treated with IV abx. A vaginal bulge was noted and urogynecology is consulted to assist. Patient is poor historian, history obtained mostly from . Allergies: NKDA Home Medications Amlodipine Besylate 10 mg PO DAILY 03/24/22 Carvedilol [Coreg] 25 mg PO BID 03/24/22 Doxazosin [Cardura*] 2 mg PO BEDTIME 03/24/22 Gabapentin 300 mg PO TID 03/24/22 Hydralazine [Apresoline*] 25 mg PO BID* 03/24/22 Olmesartan Medoxomil 20 mg PO BID* 03/24/22 Amox/Clavulanate [Augmentin 875-125 Tab] 1 each PO BID #14 tab 03/27/22 Calcitrol [Rocaltrol*] 0.25 mcg PO Q48H #30 cap 03/27/22 Furosemide [Lasix*] 20 mg PO BIDL #60 tab 03/27/22 Potassium Chloride [K-Dur] 10 meq PO DAILY #30 tab.er.prt 03/27/22 Spironolactone [Aldactone*] 25 mg PO DAILY #30 tab 03/27/22 Past Medical/Surgical History Diabetic: Yes -: HTN -: Diabetes mellitus type 2, non insulin dependent -: Chronic Hearing loss -: Bowel Resection with Ileostomy bag/reversal -: Chronic hyponatremia -: Hysterectomy -: Cholecystectomy -: remington cataract sx -: 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 She is . - Family History Mother -: Hypertension, Diabetes Sister -: Hypertension, Diabetes Dad & Mom -: Hypertension, Diabetes - Social History Smoking Status: Never smoker Alcohol use: No CD- Drugs: No Caffeine use: Yes Place of Residence: Home Physical Exam Vitals: Reviewed per EMR General: awake, alert HEENT: NC, AT Skin: warm, dry, intact Abdomen: laparotomy scar, no masses, hernias, or hepatosplenomegaly. Non-d istended, non-tender. DRY JANITOR: jose in place. Patient examined in regular inpatient bed without stirrups which only allowed for limited exam. Grade 2 cystocele noted at hymen of vagina, protrudes with valsalva. Vaginal epithelium atrophic, no labial lesions observed. Neuro: slightly disoriented, minimal verbal communication, grossly motor functions intact Extremities: No gross edema or vascular changes Labs/Imaging Reviewed per EMR Assessment/Plan 1. Cystocele: mostly asymptomatic occasional discomfort, notices bulge denies h/o incomplete emptying or incontinence needs full pelvic exam which can be done in office post-discharge likely needs repair or pessary stage 2 anterior wall prolapse, potentially with apical prolapse as well do not suspect this degree of prolapse to contribute to significant outlet obstruction contributing to her JOSE however, this needs further evaluation after patient's condition is stabilized good candidate for a pessary at this time as there are multiple medical problems 2. JOSE: possibly from other physiologic causes oliguria likely from dehydration, not characteristic of voiding dysfunction or obstruction on IV fluids, continue hydration and treating JOSE jose in place to monitor I&Os, does not need jose due to prolapse 3. UTI: h/o urosepsis two weeks ago urine culture reviewed from that visit, enterococcus treated with meropenem UA micro results reviewed, not suspecting an infection unless the culture is positive follow culture and treat PRN empiric IV abx to continue until culture results will assess PVR outpatient may recommend vaginal estrogen, PACs, and probiotics daily after discharge for prevention of recurrent UTI 4. Vaginal atrophy/GSM vaginal estrogen as above Above A/P discussed with Dr. Alarcon. Thank you for the consultation. We will have patient follow up in clinic after discharge.
--- NOTE | 2022-04-09 17:08 | RAD REPORT ---
EXAM DESCRIPTION: CT - Head C Spine Cap Wo Con - 04/09/2022 4:55 pm CLINICAL HISTORY: Trauma, head and neck injury. Chest, abdomen and pelvis pain. s/p fall COMPARISON: Head C Spine Cap W Con dated 11/02/2019; Head C Spine Cap Wo Con dated 05/14/2019 TECHNIQUE: CT head without contrast. CT cervical spine without contrast with coronal and sagittal reformatted images. CT chest, abdomen and pelvis without contrast with coronal and sagittal reformatted images of the spi ne. All CT scans are performed using dose optimization technique as appropriate and may include automated exposure control or mA/KV adjustment according to patient size. FINDINGS: CT HEAD WITHOUT CONTRAST: No intracranial hemorrhage, hydrocephalus or extra-axial fluid collection. No areas of brain edema o r midline shift. The paranasal sinuses and mastoids are clear. The calvarium is intact. CT CERVICAL SPINE WITHOUT CONTRAST: No fracture or subluxation. Postoperative changes are present spanning C4-[address] M ild posterior osteophyte is present as well at these levels. The prevertebral soft tissues are normal in thickness. CT CHEST, ABDOMEN, PELVIS WITHOUT CONTRAST: NOTE: Lack of contrast is a significant limitation in the assessment of trauma related findings. Spec ifically, solid organ, vascular and bowel evaluation is significantly limited. Small group of nodules is seen in the medial right upper lobe.Trace bilateral pleural fluid is seen.N o pneumothorax or pericardial/pleural fluid. No evidence of intra-abdominal visceral injury, free fluid or free air is seen within the above detai led limitations. Focal ventral hernia is present containing a portion of the anterior stomach wall. V entral hernia more inferiorly is also present containing small bowel loops. Moderate stool is present throughout the rectosigmoid colon with diverticulosis present. No concerning pelvic findings. Lumbar degenerative changes are present. No acute fracture. IMPRESSION: Negative for acute traumatic findings within the above detailed limitations.
[2022-04-09 17:57] LABS: Potassium 5.3 mmol/L (3.5-5.1)
[2022-04-09] MEDS: CEFTRIAXONE 1,000 MG in NA CHLORIDE 0.9% 50 ML IVPB SCH (20:57)
[2022-04-09] MEDS: AZITHROMYCIN IV 500 MG in NA CHLORIDE 0.9% 250 ML IVPB SCH (21:58)
[2022-04-09 23:23] LABS: Potassium 4.7 mmol/L (3.5-5.1)
[2022-04-10] MEDS ORDERED: SODIUM BICARB 50 MEQ/50ML VIAL ONE ×2 (00:17→00:34)
[2022-04-10] MEDS ORDERED: NACHLORIDE 0.45% 1,000 ML IV ONE (00:18)
[2022-04-10] MEDS: NACHLORIDE 0.45% 1,000 ML with NA BICARB 8.4% 150 MEQ IV SCH ×4 (00:22→11:15)
[2022-04-10] MEDS: HEPARIN 5000 UNIT/ML 1 ML VIAL SQ SCH ×3 (00:25→17:25)
[2022-04-10 06:07] LABS: Absolute Lymphocytes (CBC) 0.5 K/uL (0.7-4.9); Hematocrit 21.9 % (36.0-45.0); Lymphocytes % 7.4 % (15.3-44.8); MCV 85.9 fL (80-100); MPV 8.2 fL (7.6-11.3); RBC Red Blood Cell Count 2.55 M/uL (3.86-4.86)
[2022-04-10 06:28] LABS: Magnesium 2.2 mg/dL (1.8-2.4); Potassium 4.6 mmol/L (3.5-5.1)
[2022-04-10] MEDS: INSULIN -REGULAR HUMAN 50 UNIT/0.5 ML ML SQ SCH ×4 (07:30→21:00)
[2022-04-10] MEDS: SEVELAMER CARBONATE 800 MG TABLET PO SCH ×3 (08:55→17:25)
[2022-04-10] MEDS ORDERED: PHENOL 1.4% ORAL SPRAY 180ML MM PRN (11:45)
[2022-04-10] MEDS ORDERED: METOPROLOL TAR 25 MG TAB PO ONE (11:45)
[2022-04-10] MEDS ORDERED: AMLODIPINE 5 MG TAB PO ONE (11:45)
[2022-04-10] MEDS ORDERED: HYDRALAZINE HCL 20 MG/ML VIAL IV ONE (11:47)
[2022-04-10] MEDS ORDERED: NACHLORIDE 0.45% 1,000 ML with NA BICARB 8.4% 150 MEQ IV SCH ×2 (12:00)
--- NOTE | 2022-04-10 12:26 | P.PN ---
Subjective Date of Service: 04/10/22 Chief Complaint: JOSE, Hyponatremia Subjective: Other (C/o of more SOB today.) Physical Examination - Vital Signs Temperature: 98.6 F Blood Pressure: 179/77 Pulse: 95 Respirations: 18 Pulse Ox (%): 99 - Physical Exam General: Mild distress HEENT: Atraumatic, Normocephalic Neck: Supple, JVD not distended Respiratory: Other (symmetric chest expansion) Cardiovascular: No rubs, No murmurs Gastrointestinal: Soft and benign, No rebound Musculoskeletal: No clubbing Integumentary: No warmth Neurological: Normal speech, Normal tone Urinary: Other (No bladder distention) External genitalia: Deferred Rectal: Deferred - Studies Microbiology Data (last 24 hrs): 04/08/22 23:11 Blood - Blood Anaerobic Blood Culture - Final 04/08/22 23:11 Blood - Blood Anaerobic Blood Culture - Final Assessment And Plan - Plan 1. Acute kidney injury likely 2/2 secondary to obstructive uropathy. Baseline SCr 0-.8-1.0. SCr 8.5 on adm, improved to 7.5. Still oliguric Cont jose. Monitor renal panel. 2. Acute respi failure. +inc WOB, SOB. Dc IVF. Check ABG. Start bipap 10/5 setting. Give lasix 120 mg IV q6h x 4 doses 1st dose now. 3. Hypertension. BP variable. Monitor. 4. Metabolic acidosis 2/2 renal dysfxn. Cont bicarb drip. 5. Hyponatremia 2/2 renal dysfxn. Isotonic IVF & jose catheter insertion as above. 6. Hyperkalemia. Improved. IVF + jose cath insertion as above. 7. HyperPO4. Start Sevelamer po tidwm 8. DM2. Mngt per primary team. 9. Severe anemia w/ iron deficiency. Received IV iron recently. Give Retacrit 10T u SQ when BP better controlled.
[2022-04-10] MEDS: FUROSEMIDE 40 MG/4 ML VIAL IV SCH ×2 (13:03→17:25)
[2022-04-10 13:30] LABS: Arterial Blood Carboxyhemoglob 1.1 % (0-1.5); Blood Gas Oxyhemoglobin 91.6 % (94-97); Blood O2 Saturation 93.9 % (92-98.5)
[2022-04-10] MEDS: HYDRALAZINE HCL 25 MG TABLET PO SCH ×2 (14:23→21:35)
[2022-04-10] MEDS: HYDRALAZINE HCL 20 MG/ML VIAL IV PRN (17:26)
[2022-04-10] MEDS ORDERED: METOPROLOL TAR 25 MG TAB PO SCH (18:00)
[2022-04-10] MEDS ORDERED: CEFTRIAXONE 1000 MG/VIAL ONE (20:20)
[2022-04-10] MEDS: CEFTRIAXONE 1,000 MG in NA CHLORIDE 0.9% 50 ML IVPB SCH (21:34)
[2022-04-10] MEDS: AZITHROMYCIN IV 500 MG in NA CHLORIDE 0.9% 250 ML IVPB SCH (21:35)
[2022-04-10] MEDS ORDERED: NA CHLORIDE 0.9% 50 ML ONE (21:37)
[2022-04-11] MEDS: HEPARIN 5000 UNIT/ML 1 ML VIAL SQ SCH ×3 (01:34→17:07)
[2022-04-11] MEDS: FUROSEMIDE 40 MG/4 ML VIAL IV SCH ×2 (01:34→06:05)
[2022-04-11] MEDS: ACETAMINOPHEN 500 MG TAB PO PRN (01:35)
[2022-04-11 05:44] LABS: Absolute Lymphocytes (CBC) 1.4 K/uL (0.7-4.9); Hematocrit 22.3 % (36.0-45.0); MCV 84.1 fL (80-100); MPV 8.5 fL (7.6-11.3); RBC Red Blood Cell Count 2.66 M/uL (3.86-4.86)
[2022-04-11] MEDS: INSULIN -REGULAR HUMAN 50 UNIT/0.5 ML ML SQ SCH ×4 (07:30→20:53)
[2022-04-11] MEDS: SEVELAMER CARBONATE 800 MG TABLET PO SCH ×3 (08:46→17:07)
[2022-04-11] MEDS: HYDRALAZINE HCL 25 MG TABLET PO SCH ×4 (08:46→20:53)
[2022-04-11] MEDS: AMLODIPINE 10 MG TAB PO SCH (08:46)
[2022-04-11] MEDS: HYDRALAZINE HCL 20 MG/ML VIAL IV PRN (12:36)
--- NOTE | 2022-04-11 12:41 | P.PN ---
Subjective Date of Service: 04/11/22 Chief Complaint: JOSE, Hyponatremia Subjective: No new changes Physical Examination - Vital Signs Temperature: 97.8 F Blood Pressure: 199/77 Pulse: 89 Respirations: 18 Pulse Ox (%): 99 - Physical Exam General: In no apparent distress HEENT: Atraumatic, Normocephalic Neck: Supple, JVD not distended Respiratory: Clear to auscultation bilaterally Cardiovascular: No rubs, No murmurs Gastrointestinal: Soft and benign, No rebound Musculoskeletal: No clubbing Integumentary: No warmth Neurological: Normal speech, Normal tone Urinary: Jose catheter External genitalia: Deferred Rectal: Deferred Assessment And Plan - Plan 1. Acute kidney injury likely 2/2 secondary to obstructive uropathy. Baseline SCr 0-.8-1.0. SCr 8.5 on adm. +Acute urinary retention. Cont jose. SCr improving. Monitor renal panel. 2. Acute respi failure. Improved. Monitor. 3. Hypertension. BP variable. Monitor. 4. Metabolic acidosis 2/2 renal dysfxn. Cont bicarb drip. 5. Hyponatremia 2/2 renal dysfxn. Isotonic IVF & jose catheter insertion as above. 6. Hyperkalemia. Improved. IVF + jose cath insertion as above. 7. HyperPO4. Start Sevelamer po tidwm 8. DM2. Mngt per primary team. 9. Severe anemia w/ iron deficiency. Received IV iron recently. Give Retacrit 10T u SQ when BP better controlled.
[2022-04-11] MEDS ORDERED: HYDRALAZINE HCL 25 MG TABLET PO ONE (12:55)
[2022-04-11] MEDS ORDERED: METOPROLOL TARTRATE 5 MG/5 ML INJ IV STA (14:48)
[2022-04-11 15:43] LABS: Albumin 2.8 g/dL (3.4-5.0); Phosphorus 6.3 mg/dL (2.5-4.9); Potassium 4.3 mmol/L (3.5-5.1)
[2022-04-11] MEDS: AZITHROMYCIN IV 500 MG in NA CHLORIDE 0.9% 250 ML IVPB SCH (20:53)
[2022-04-11] MEDS: CEFTRIAXONE 1,000 MG in NA CHLORIDE 0.9% 50 ML IVPB SCH (20:53)
[2022-04-12] MEDS: HEPARIN 5000 UNIT/ML 1 ML VIAL SQ SCH ×3 (00:27→17:14)
[2022-04-12] MEDS: ACETAMINOPHEN 500 MG TAB PO PRN ×2 (00:27→20:35)
[2022-04-12] MEDS: HYDRALAZINE HCL 20 MG/ML VIAL IV PRN (05:17)
[2022-04-12] MEDS: INSULIN -REGULAR HUMAN 50 UNIT/0.5 ML ML SQ SCH ×4 (07:30→20:42)
[2022-04-12] MEDS: AMLODIPINE 10 MG TAB PO SCH (09:23)
[2022-04-12] MEDS: HYDRALAZINE HCL 25 MG TABLET PO SCH ×3 (09:24→20:37)
[2022-04-12] MEDS: SEVELAMER CARBONATE 800 MG TABLET PO SCH ×3 (09:24→17:14)
[2022-04-12 10:20] LABS: Absolute Lymphocytes (CBC) 0.6 K/uL (0.7-4.9); Hematocrit 22.4 % (36.0-45.0); Lymphocytes % 8.5 % (15.3-44.8); MCV 84.9 fL (80-100); MPV 7.6 fL (7.6-11.3); RBC Red Blood Cell Count 2.63 M/uL (3.86-4.86)
--- NOTE | 2022-04-12 10:30 | P.PN ---
Subjective Date of Service: 04/10/22 Chief Complaint: JOSE, Hyponatremia Subjective: No new changes, No C/O voiced, Improving Review of Systems 10-point ROS is otherwise unremarkable Physical Examination - Vital Signs Temperature: 97.5 F Blood Pressure: 176/73 Pulse: 90 Respirations: 16 Pulse Ox (%): 99 - Physical Exam General: Alert, In no apparent distress HEENT: Atraumatic, PERRLA, EOMI Neck: Supple, JVD not distended Respiratory: Clear to auscultation bilaterally, Normal air movement Cardiovascular: Regular rate/rhythm, Normal S1 S2 Gastrointestinal: Normal bowel sounds, No tenderness Musculoskeletal: No tenderness Integumentary: No rashes Neurological: Normal speech, Normal tone, Normal affect Lymphatics: No axilla or inguinal lymphadenopathy - Studies Medications List Reviewed: Yes Assessment & Plan - Problems (Diagnosis) (1) Acute kidney injury Current Visit: Yes Status: Acute (2) Hyponatremia Current Visit: Yes Status: Acute (3) Diabetes Current Visit: Yes Status: Chronic Qualifiers: Diabetes mellitus type: type 2 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 Continue with IV hydration 2. Repeat sodium level 3. Monitor renal function 4. Renal ultrasound 5. Nephrology consultation 6. Orellana catheter 7. Strict blood sugar control 8. GI DVT prophylaxis Discharge Plan: Home Plan to discharge in: Greater than 2 days - Advance Directives Does patient have a Living Will: No Does patient have a Durable POA for Healthcare: No - Code Status/Comfort Care Code Status Assessed: Yes Code Status: Full Code Critical Care: No Time Spent Managing PTS Care (In Minutes): 35
--- NOTE | 2022-04-12 10:32 | P.PN ---
Date of Service: 04/11/22 Subjective Patient became short of breath yesterday. Fluids are on hold. Orellana catheter placed. Clinically appearing to do better today was given IV Lasix Review of Systems 10-point ROS is otherwise unremarkable Physical Examination - Vital Signs Reviewed - Physical Exam General: Alert, In no apparent distress Respiratory: Clear to auscultation bilaterally, Normal air movement Cardiovascular: Regular rate/rhythm, Normal S1 S2 Gastrointestinal: Normal bowel sounds, No tenderness Neurological: Normal speech, Normal tone, Normal affect Assessment & Plan - Problems (Diagnosis) (1) Acute kidney injury Current Visit: Yes Status: Acute (2) Hyponatremia Current Visit: Yes Status: Acute (3) Diabetes Current Visit: Yes Status: Chronic Qualifiers: Diabetes mellitus type: type 2 Diabetes mellitus mcc insulin use: without mcc use Diabetes mellitus complication status: with kidney complications Diabetes mellitus complication detail: with chronic kidney disease Chronic kidney disease stage 3 subtype: stage 3b (GFR 30-44) (4) Atrial fibrillation Current Visit: No Status: Chronic Qualifiers: Atrial fibrillation type: unspecified Qualified Code(s): I48.91 - Unspecified atrial fibrillation (5) Essential hypertension Current Visit: No Status: Chronic - Plan Continue with plan of care as mentioned below 1. Hep-Lock IV 2. Repeat sodium level 3. Monitor renal function 4. Strict I's and O's 5. Nephrology consultation appreciated 6. Orellana catheter; increased urine output 7. Strict blood sugar control 8. GI DVT prophylaxis Discharge Plan: Home Plan to discharge in: Greater than 2 days - Advance Directives Does patient have a Living Will: No Does patient have a Durable POA for Healthcare: No - Code Status/Comfort Care Code Status Assessed: Yes Code Status: Full Code Critical Care: No Time Spent Managing PTS Care (In Minutes): 35
[2022-04-12 10:33] LABS: Albumin 2.8 g/dL (3.4-5.0); Bilirubin Total 0.3 mg/dL (0.2-1.0); Magnesium 1.8 mg/dL (1.8-2.4); Potassium 4.2 mmol/L (3.5-5.1); Protein, Total 6.4 g/dL (6.4-8.2)
--- NOTE | 2022-04-12 11:15 | P.PN ---
Subjective Date of Service: 04/12/22 Chief Complaint: JOSE, Hyponatremia Subjective: Other (No c/o flank pain or fever or nausea or SOB.) Physical Examination - Vital Signs Temperature: 97.5 F Blood Pressure: 176/73 Pulse: 90 Respirations: 16 Pulse Ox (%): 99 - Physical Exam General: In no apparent distress HEENT: Atraumatic, Normocephalic Neck: Supple, JVD not distended Respiratory: Other (symmetric chest expansion) Cardiovascular: No rubs, No murmurs Gastrointestinal: Soft and benign, No guarding Musculoskeletal: No clubbing Integumentary: No warmth Neurological: Normal speech, Normal tone Urinary: Other (No bladder distention) External genitalia: Deferred Rectal: Deferred - Studies Medications List Reviewed: Yes Assessment And Plan - Plan 1. Acute kidney injury likely 2/2 secondary to obstructive uropathy. Baseline SCr 0-.8-1.0. SCr 8.5 on adm. +Acute urinary retention. Cont jose. SCr improving. Monitor renal panel. If renal continues to improve, plan to remove jose in 2 days. Urinary retention 2/2 bladder prolapse. Will ask Gynecology on when cystorraphy will be done. 2. Acute respi failure. Improved. Monitor. 3. Hypertension. BP variable. Monitor. 4. Metabolic acidosis 2/2 renal dysfxn. Improved. Monitor. 5. Hyponatremia 2/2 renal dysfxn. Improving. Encourage po solid food intake tid. Cont jose 6. Hyperkalemia. Improved. Monitor. 7. HyperPO4. Cont Sevelamer po tidwm, dc when phos back to normal. 8. DM2. Mngt per primary team. 9. Severe anemia w/ iron deficiency. Received IV iron recently. Give Retacrit 10T u SQ when BP better controlled.
[2022-04-12] MEDS: carvediloL 6.25 MG TAB PO SCH ×2 (12:48→20:37)
[2022-04-12] MEDS ORDERED: CEFTRIAXONE 1000 MG/VIAL ONE (20:08)
[2022-04-12] MEDS ORDERED: NA CHLORIDE 0.9% 50 ML ONE (20:11)
[2022-04-12] MEDS: CEFTRIAXONE 1,000 MG in NA CHLORIDE 0.9% 50 ML IVPB SCH (20:36)
[2022-04-12] MEDS: AZITHROMYCIN IV 500 MG in NA CHLORIDE 0.9% 250 ML IVPB SCH (21:22)
[2022-04-13] MEDS: HEPARIN 5000 UNIT/ML 1 ML VIAL SQ SCH ×3 (00:49→16:52)
[2022-04-13 04:22] LABS: Absolute Lymphocytes (CBC) 0.8 K/uL (0.7-4.9); Lymphocytes % 11.9 % (15.3-44.8); MCV 85.4 fL (80-100); MPV 8.1 fL (7.6-11.3); RBC Red Blood Cell Count 2.26 M/uL (3.86-4.86)
[2022-04-13 04:27] LABS: Hematocrit 19.3 % (36.0-45.0)
[2022-04-13 04:56] LABS: Albumin 2.4 g/dL (3.4-5.0); Bilirubin Total 0.2 mg/dL (0.2-1.0); Magnesium 1.7 mg/dL (1.8-2.4); Potassium 3.9 mmol/L (3.5-5.1); Protein, Total 5.5 g/dL (6.4-8.2)
[2022-04-13] MEDS ORDERED: NA CHLORIDE 0.9% 250 ML IV SCH (05:00)
[2022-04-13] MEDS: INSULIN -REGULAR HUMAN 50 UNIT/0.5 ML ML SQ SCH ×4 (07:30→19:44)
[2022-04-13] MEDS: GLUCERNA SHAKE 237 ML CAN PO SCH (08:56)
[2022-04-13] MEDS: AMLODIPINE 10 MG TAB PO SCH (08:56)
[2022-04-13] MEDS: SEVELAMER CARBONATE 800 MG TABLET PO SCH ×3 (08:56→16:52)
[2022-04-13] MEDS: HYDRALAZINE HCL 25 MG TABLET PO SCH ×3 (08:57→19:41)
[2022-04-13] MEDS: carvediloL 6.25 MG TAB PO SCH ×2 (08:57→19:43)
[2022-04-13] MEDS: HYDRALAZINE HCL 20 MG/ML VIAL IV PRN (10:02)
[2022-04-13] MEDS ORDERED: FUROSEMIDE 40 MG/4 ML VIAL IV ONE (12:01)
--- NOTE | 2022-04-13 14:32 | EKG ---
Test Date: 2022-04-11 Test Time: 14:11:38 Crushed Stone Grader: JARRELL MEASUREMENT RESULTS: Intervals: Rate: 149 FL: QRSD: 78 QT: 314 QTc: 494 Townsend: P: FL: QRS: 95 T: -50 INTERPRETIVE STATEMENTS: Atrial fibrillation with rapid ventricular response Rightward axis Low voltage QRS Nonspecific ST and T wave abnormality, probably digitalis effect Abnormal ECG Compared to ECG 04/08/2022 21:30:27 Right-axis deviation now present ST (T wave) deviation now present Junctional rhythm no longer present Electronically Signed On 04-13-22 14:31:59 CDT by Serge Morales
--- NOTE | 2022-04-13 15:01 | P.PN ---
Subjective Date of Service: 04/13/22 Chief Complaint: JOSE, Hyponatremia Today cr slowly improving Sodium stable 120 S/p 1 PRBC today cont to hold on IVF General: Awake, NAD HEENT: Atraumatic, Normocephalic Neck: Supple, no elevated JVD Respiratory: Other CTAB. No rales or wheezes Cardiovascular: No rubs, No murmurs Gastrointestinal: slightly distended, wall edema, multiple scars BS +VE Musculoskeletal: No clubbing Integumentary: No warmth Neurological: Normal tone, Sensation intact Lymphatics: No axilla or inguinal lymphadenopathy Urinary: Other (no bladder distention) A/P #Acute kidney injury likely 2/2 secondary to obstructive uropathy. Baseline SCr 0-.8-1.0. SCr 8.5 on adm. +Acute urinary retention. Cont jose. SCr improving. Monitor renal panel #Urinary retention 2/2 bladder prolapse. Gynecology follow up as an OP #Acute respi failure. Improved. Monitor. # mild metabolci acidosis no need for sodium bicarbonate at this time # hyponatremia in JOSE setting sodium stable cont to monitor for now Uric acid >7.0 , TSH 3.8 #Hypertension. now better controlled cont amlodipine #Severe anemia w/ iron deficiency. Cont IV iron S/p Epogen X1 # Metabolic bone disease Phosphorus improving will dc renvela if serum phosphorus and cr cont to improve Physical Examination - Vital Signs Temperature: 98.5 F Blood Pressure: 142/63 Pulse: 83 Respirations: 16 Pulse Ox (%): 98 - Studies Medications List Reviewed: Yes
[2022-04-13] MEDS: ACETAMINOPHEN 500 MG TAB PO PRN (19:41)
[2022-04-13 19:42] LABS: Hematocrit 29.2 % (36.0-45.0)
[2022-04-13] MEDS: CEFTRIAXONE 1,000 MG in NA CHLORIDE 0.9% 50 ML IVPB SCH (19:42)
[2022-04-13] MEDS: AZITHROMYCIN IV 500 MG in NA CHLORIDE 0.9% 250 ML IVPB SCH (22:10)
[2022-04-14] MEDS: HEPARIN 5000 UNIT/ML 1 ML VIAL SQ SCH ×3 (01:31→17:30)
[2022-04-14] MEDS: INSULIN -REGULAR HUMAN 50 UNIT/0.5 ML ML SQ SCH ×4 (07:30→21:00)
[2022-04-14] MEDS: SEVELAMER CARBONATE 800 MG TABLET PO SCH ×3 (08:50→17:29)
[2022-04-14] MEDS: carvediloL 6.25 MG TAB PO SCH (08:50)
[2022-04-14] MEDS: HYDRALAZINE HCL 25 MG TABLET PO SCH ×3 (08:50→21:30)
[2022-04-14] MEDS: AMLODIPINE 10 MG TAB PO SCH (08:50)
[2022-04-14] MEDS: GLUCERNA SHAKE 237 ML CAN PO SCH (08:51)
[2022-04-14] MEDS: ACETAMINOPHEN 500 MG TAB PO PRN (08:54)
--- NOTE | 2022-04-14 09:51 | P.PN ---
Subjective Date of Service: 04/14/22 Chief Complaint: JOSE, Hyponatremia Today no overnight events Bp elevated , will increase Coreg S/p 1PRBC , Hb 10.4 General: Awake, NAD HEENT: Atraumatic, Normocephalic Neck: Supple, no elevated JVD Respiratory: Other CTAB. No rales or wheezes Cardiovascular: No rubs, No murmurs Gastrointestinal: slightly distended, wall edema, multiple scars BS +VE Musculoskeletal: No clubbing Integumentary: No warmth Neurological: Normal tone, Sensation intact Lymphatics: No axilla or inguinal lymphadenopathy Urinary: Other (no bladder distention) A/P #Acute kidney injury likely 2/2 secondary to obstructive uropathy. Baseline SCr 0-.8-1.0. SCr 8.5 on adm. +Acute urinary retention. Cont jose. SCr improving. Monitor renal panel #Urinary retention 2/2 bladder prolapse. Gynecology follow up as an OP #Acute respi failure. Improved. Monitor. # mild metabolic acidosis no need for sodium bicarbonate at this time # hyponatremia in JOSE setting sodium stable cont to monitor for now Uric acid >7.0 , TSH 3.8 #Hypertension. will increase Coreg cont amlodipine #Severe anemia w/ iron deficiency. Cont IV iron S/p Epogen X1 # Metabolic bone disease Phosphorus improving will dc renvela if serum phosphorus and cr cont to improve Physical Examination - Vital Signs Temperature: 98.3 F Blood Pressure: 180/78 Pulse: 74 Respirations: 16 Pulse Ox (%): 98 - Studies Microbiology Data (last 24 hrs): 04/08/22 23:11 Blood - Blood Aerobic Blood Culture - Final No growth in 5 days. 04/08/22 23:11 Blood - Blood Anaerobic Blood Culture - Final 04/08/22 23:11 Blood - Blood Aerobic Blood Culture - Final No growth in 5 days. 04/08/22 23:11 Blood - Blood Anaerobic Blood Culture - Final Medications List Reviewed: Yes
[2022-04-14 13:21] LABS: Albumin 2.7 g/dL (3.4-5.0); Bilirubin Total 0.2 mg/dL (0.2-1.0); Potassium 4.2 mmol/L (3.5-5.1); Protein, Total 6.5 g/dL (6.4-8.2)
[2022-04-14] MEDS: carvediloL 12.5 MG TAB PO SCH (17:30)
[2022-04-14] MEDS: CEFTRIAXONE 1,000 MG in NA CHLORIDE 0.9% 50 ML IVPB SCH (21:30)
[2022-04-14] MEDS: AZITHROMYCIN IV 500 MG in NA CHLORIDE 0.9% 250 ML IVPB SCH (21:38)
--- NOTE | 2022-04-15 00:15 | P.PN ---
Date of Service: 04/14/22 Subjective Patient is clinically doing better after blood transfusion. Continue working with therapy and possible discharge with a leg bag. Family wanted to get bladder suspension done here in the hospital but spoke to them that Dr. Alarcon will see patient as an outpatient and arrange this at discharge. Review of Systems 10-point ROS is otherwise unremarkable Physical Examination - Vital Signs Reviewed - Physical Exam General: Alert, In no apparent distress Respiratory: Clear to auscultation bilaterally, Normal air movement Cardiovascular: Regular rate/rhythm, Normal S1 S2 Gastrointestinal: Normal bowel sounds, No tenderness Neurological: Normal speech, Normal tone, Normal affect Assessment & Plan - Problems (Diagnosis) (1) Acute kidney injury Current Visit: Yes Status: Acute (2) Hyponatremia Current Visit: Yes Status: Acute (3) Diabetes Current Visit: Yes Status: Chronic Qualifiers: Diabetes mellitus type: type 2 Diabetes mellitus penitentiary insulin use: w ithout exterminator helper use Diabetes mellitus complication status: with kidney complications Diabetes mellitus complication detail: with chronic kidney d isease Chronic kidney disease stage 3 subtype: stage 3b (GFR 30-44) (4) Atrial fibrillation Current Visit: No Status: Chronic Qualifiers: Atrial fibrillation type: unspecified Qualified Code(s): I48.91 - Unspecified atrial fibrillation (5) Essential hypertension Current Visit: No Status: Chronic - Plan Continue with plan of care as mentioned below 1. Hep-Lock IV; status post blood transfusion; renal function much improved 2. Sodium continues to improve as renal function improves 3. Outpatient gynecology follow-up for bladder suspension 4. Strict I's and O's 5. Nephrology consultation appreciated 6. Patient will need leg bag prior to discharge 7. Strict blood sugar control 8. GI DVT prophylaxis Discharge Plan: Home Plan to discharge in: Greater than 2 days - Advance Directives Does patient have a Living Will: No Does patient have a Durable POA for Healthcare: No - Code Status/Comfort Care Code Status Assessed: Yes Code Status: Full Code Critical Care: No Time Spent Managing PTS Care (In Minutes): 35
--- NOTE | 2022-04-15 00:19 | P.PN ---
Date of Service: 04/12/22 Subjective Patient was diuresed extensively. Patient with a large amount of urine output. Respiratory status is much better. Clinically patient is improving. Strength is improving. Urine output has picked up as well. Renal function is much better. We will continue monitoring hemoglobin. Spoke to gynecology and they will follow-up patient as an outpatient for bladder suspension secondary to bladder prolapse. Review of Systems 10-point ROS is otherwise unremarkable Physical Examination - Vital Signs Reviewed - Physical Exam General: Alert, In no apparent distress Respiratory: Clear to auscultation bilaterally, Normal air movement Cardiovascular: Regular rate/rhythm, Normal S1 S2 Gastrointestinal: Normal bowel sounds, No tenderness Neurological: Normal speech, Normal tone, Normal affect Assessment & Plan - Problems (Diagnosis) (1) Acute kidney injury secondary to postobstructive renal failure from bladder prolapse Current Visit: Yes Status: Acute (2) Hyponatremia Current Visit: Yes Status: Acute (3) Diabetes Current Visit: Yes Status: Chronic Qualifiers: Diabetes mellitus type: type 2 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 Hep-Lock IV 2. Continue monitoring sodium level; renal function improving; continue monitoring output 3. Outpatient follow-up with gynecology for bladder suspension 4. Nephrology consultation appreciated 5. Orellana catheter; increased urine output; may change to a leg bag prior to discharge 6. Strict blood sugar control 7. GI DVT prophylaxis
--- NOTE | 2022-04-15 00:20 | P.PN ---
Date of Service: 04/13/22 Subjective Patient doing well. upset that patient cannot have bladder suspension in the hospital. Spoke to him at length regarding this. Try to get him to explain that she can go home with a leg bag and follow-up as an outpatient. She is anemic and will transfuse 2 units of packed red blood cells. 04/12 Patient was diuresed extensively. Patient with a large amount of urine output. Respiratory status is much better. Clinically patient is improving. Strength is improving. Urine output has picked up as well. Renal function is much better. We will continue monitoring hemoglobin. Spoke to gynecology and they will follow-up patient as an outpatient for bladder suspension secondary to savannah dder prolapse. Review of Systems 10-point ROS is otherwise unremarkable Physical Examination - Vital Signs Reviewed - Physical Exam General: Alert, In no apparent distress Respiratory: Clear to auscultation bilaterally, Normal air movement Cardiovascular: Regular rate/rhythm, Normal S1 S2 Gastrointestinal: Normal bowel sounds, No tenderness Neurological: No focal deficits Assessment & Plan - Problems (Diagnosis) (1) Acute kidney injury secondary to postobstructive renal failure from bladder prolapse Current Visit: Yes Status: Acute (2) Hyponatremia Current Visit: Yes Status: Acute (3) Diabetes Current Visit: Yes Status: Chronic Qualifiers: Diabetes mellitus type: type 2 Diabetes mellitus shelter insulin use: without shelter use Diabetes mellitus complication status: with kidney complications Diabetes mellitus complication detail: with chronic kidney disease Chronic kidney disease stage 3 subtype: stage 3b (GFR 30-44) (4) Atrial fibrillation Current Visit: No Status: Chronic Qualifiers: Atrial fibrillation type: unspecified Qualified Code(s): I48.91 - Unspecified atrial fibrillation (5) Essential hypertension Current Visit: No Status: Chronic - Plan Continue with plan of care as mentioned below 1. Hep-Lock IV 2. Continue monitoring sodium level; renal function improving; continue monitoring output 3. Outpatient follow-up with gynecology for bladder suspension 4. Nephrology consultation appreciated 5. Orellana catheter; increased urine output; may change to a leg bag prior to discharge 6. Strict blood sugar control 7. GI DVT prophylaxis
[2022-04-15] MEDS: HEPARIN 5000 UNIT/ML 1 ML VIAL SQ SCH ×3 (01:12→16:23)
[2022-04-15] MEDS: INSULIN -REGULAR HUMAN 50 UNIT/0.5 ML ML SQ SCH ×4 (07:30→20:30)
[2022-04-15] MEDS: SEVELAMER CARBONATE 800 MG TABLET PO SCH ×3 (08:03→16:23)
[2022-04-15] MEDS: HYDRALAZINE HCL 25 MG TABLET PO SCH ×3 (08:03→20:33)
[2022-04-15] MEDS: AMLODIPINE 10 MG TAB PO SCH (08:04)
[2022-04-15] MEDS: carvediloL 12.5 MG TAB PO SCH ×2 (08:05→16:22)
[2022-04-15] MEDS: GLUCERNA SHAKE 237 ML CAN PO SCH (08:06)
[2022-04-15 09:15] LABS: Absolute Lymphocytes (CBC) 0.5 K/uL (0.7-4.9); Hematocrit 29.6 % (36.0-45.0); Lymphocytes % 11.1 % (15.3-44.8); MCV 83.4 fL (80-100); MPV 7.1 fL (7.6-11.3); RBC Red Blood Cell Count 3.55 M/uL (3.86-4.86)
[2022-04-15] MEDS: HYDRALAZINE HCL 20 MG/ML VIAL IV PRN ×2 (11:12→17:21)
--- NOTE | 2022-04-15 16:13 | P.PN ---
Subjective Date of Service: 04/15/22 Chief Complaint: JOSE, Hyponatremia Subjective: No new changes Physical Examination - Vital Signs Temperature: 97.5 F Blood Pressure: 155/67 Pulse: 88 Respirations: 17 Pulse Ox (%): 98 - Physical Exam General: Alert, Oriented x3 HEENT: Atraumatic, Normocephalic Neck: Supple Respiratory: Normal air movement Cardiovascular: Regular rate/rhythm, Normal S1 S2 Gastrointestinal: Soft and benign, Non-distended Musculoskeletal: No swelling Neurological: Normal speech - Studies Medications List Reviewed: Yes Assessment And Plan - Plan Assessment & Plan - Problems (Diagnosis) (1) Acute kidney injury Current Visit: Yes Status: Acute (2) Hyponatremia Current Visit: Yes Status: Acute (3) Diabetes Current Visit: Yes Status: Chronic Qualifiers: Diabetes mellitus type: type 2 Diabetes mellitus longterm insulin use: without longterm use Diabetes mellitus complication status: with kidney complications Diabetes mellitus complication detail: with chronic kidney disease Chronic kidney disease stage 3 subtype: stage 3b (GFR 30-44) (4) Atrial fibrillation Current Visit: No Status: Chronic Qualifiers: Atrial fibrillation type: unspecified Qualified Code(s): I48.91 - Unspecified atrial fibrillation (5) Essential hypertension Current Visit: No Status: Chronic - Plan Her renal function continues to improve significantly. Creatinine is now down to 2.7. Sodium is still significantly low but improved at 131. We will follow closely. She will continue Orellana catheterization. Will have gynecology evaluate patient for bladder suspension procedure and outpatient. Continue present care. For possible discharge in next 24hr.
[2022-04-15 22:54] VITALS: O2SAT 94
[2022-04-16] MEDS: HYDRALAZINE HCL 20 MG/ML VIAL IV PRN (00:51)
[2022-04-16] MEDS: HEPARIN 5000 UNIT/ML 1 ML VIAL SQ SCH ×2 (00:51→09:22)
--- NOTE | 2022-04-16 02:14 | PN ---
Date of Progress Note: 04/15/2022 Chief Complaint: Acute kidney injury, nonoliguric, associated with hyponatremia. Subjective: Patient has multiple medical problems. She was found to have urinary retention secondary to bladder prolapse. She was seen by [facility]. Patient is bedbound. She was found to have severe acute kidney injury. Serum creatinine on admission was 8.5. Patient has a chronic kidney disease stage 3. Baseline creatinine level was ranging from 0.8 to 1.0. Patient did not require dialysis. Renal function improved over last several days. Patient was found to have urinary retention and the patient will continue Orellana catheter. Hyponatremia gradually improved. TSH was 3.8. Review of Systems: Denies fever, chills. Physical Examination: Lungs: Diminished breath sounds at bases. Heart: S1, S2. Abdomen: Soft, benign. Extremities: No edema. Impression: 1. Acute kidney secondary to obstructive uropathy. Continue folic acid. Serum creatinine level has been gradually improving. 2. Hyponatremia, gradually improved. Monitor electrolytes. Adjust IV fluids. Continue retitration. 3. Metabolic acidosis. Monitor. Patient is off sodium bicarbonate. Monitor renal panel. 4. Acute renal failure. Electrolytes stable and renal function is improving, avoid nephrotoxic, medication. 5. Severe anemia with iron deficiency. Continue IV iron. Patient received 1 dose of LORETTA. 6. Hypertension. Continue Coreg and amlodipine. The patient at this time is not a candidate for ACEI nor ARB due to acute kidney injury. GUILLERMINA/FAUSTO Voice ID: [id number] Report ID: [id number] BRIAN
[2022-04-16] MEDS: AMLODIPINE 10 MG TAB PO SCH (05:19)
[2022-04-16 05:42] LABS: Hematocrit 31.3 % (36.0-45.0); Lymphocytes % 18.7 % (15.3-44.8); MPV 7.2 fL (7.6-11.3); RBC Red Blood Cell Count 3.69 M/uL (3.86-4.86)
[2022-04-16 06:01] LABS: Albumin 2.5 g/dL (3.4-5.0); Bilirubin Total 0.2 mg/dL (0.2-1.0); Protein, Total 6.2 g/dL (6.4-8.2)
[2022-04-16] MEDS: INSULIN -REGULAR HUMAN 50 UNIT/0.5 ML ML SQ SCH ×2 (07:30→11:57)
[2022-04-16] MEDS: HYDRALAZINE HCL 25 MG TABLET PO SCH ×2 (09:20→14:18)
[2022-04-16] MEDS: SEVELAMER CARBONATE 800 MG TABLET PO SCH ×2 (09:20→11:58)
[2022-04-16] MEDS: carvediloL 12.5 MG TAB PO SCH (09:21)
[2022-04-16] MEDS: GLUCERNA SHAKE 237 ML CAN PO SCH (09:22)
[2022-04-16 10:16] VITALS: BP 196/84; TEMP 97.3
--- NOTE | 2022-04-16 13:29 | P.PN ---
Subjective Date of Service: 04/16/22 Chief Complaint: JOSE, Hyponatremia Subjective: No new changes Physical Examination - Vital Signs Temperature: 97.3 F Blood Pressure: 196/84 Pulse: 94 Respirations: 18 Pulse Ox (%): 100 - Physical Exam General: In no apparent distress HEENT: Atraumatic, Normocephalic Neck: Supple Respiratory: Other (symmetric chest expansion) Cardiovascular: No rubs, No murmurs Gastrointestinal: Soft and benign, No rebound Musculoskeletal: No clubbing Integumentary: No warmth Neurological: Normal speech, Normal tone Urinary: Jose catheter, Other (no bladder distention) External genitalia: Deferred Rectal: Deferred - Studies Medications List Reviewed: Yes Assessment And Plan - Plan 1. Acute kidney injury likely 2/2 secondary to obstructive uropathy. Baseline SCr 0-.8-1.0. SCr 8.5 on adm. +Acute urinary retention. Cont jose. SCr improved. Monitor renal panel. Urinary retention 2/2 bladder prolapse. Will ask Gynecology on when cystorraphy will be done. Maintain jose for now. 2. Acute respi failure. Resolved. Monitor. 3. Hypertension. BP variable. Monitor. 4. Metabolic acidosis 2/2 renal dysfxn. Improved. Monitor. 5. Hyponatremia 2/2 renal dysfxn. Improving. Encourage po solid food intake tid. Cont jose 6. Hyperkalemia. Improved. Monitor. 7. HyperPO4. Cont Sevelamer po tidwm, dc when phos back to normal. 8. DM2. Mngt per primary team. 9. Severe anemia w/ iron deficiency. Received IV iron recently. Give Retacrit SQ.
--- NOTE | 2022-04-16 13:56 | P.DS ---
Admission Date: 04/08/22 Discharge Date: 04/16/22 Disposition: ROUTINE DISCHARGE Discharge Condition: GOOD Reason for Admission: JOSE, Hyponatremia Brief History of Present Illness: Patient is a 76 y/o F with PMH of NIDDM, HTN, chronic hyponatremia, who presented to the ED with her who reports she has become increasingly lethargic and hypotensive over the past week. BP 104/59 upon arrival. Labs significant for sodium 113, chloride 87, CO2 11, Cr 8.45 (baseline ~1.2), BNP 74302, hgb 7.9. ABG showed metabolic acidosis. Chest xray showed mild basilar airspace disease which has slightly worsened from 2 weeks ago, when she was admitted for sepsis, UTI, and PNA. She was given 1L NS, calcium chloride, azithromycin, rocephin, and 1 amp sodium bicarb in ED today. Upon my assessment, patient states that she has had decreased PO intake and a few episodes of vomiting today. She denies any pain or shortness of breath. she was admitted for management. Hospital Course: She was admitted for management of her multiple medical issues and electrolyte abnormalities. She responded well to therapy as she had IV fluid for hydration and management of hyponatremia however work-up with imaging study revealed obstructive uropathy and she was found to have a prolapsed bladder. She had appropriate management with gynecology evaluation and reduction of prolapse and she had a [place] catheter placed with relief of bladder outlet obstruction. Hyponatremia improved significantly possible level of obstruction and I initially elevated creatinine trended down with nephrology assistance. She had IV iron given for anemia and also Epogen dose given. She was deemed stable for discharge as her creatinine trended to 2.3 today. She will follow-up with gynecology outpatient for clinical management of her prolapsed bladder and she was to follow-up with nephrology as scheduled outpatient for management of chronic kidney disease. Vital Signs/Physical Exam: Temp Pulse Resp BP Pulse Ox 97.3 F 94 H 18 196/84 H 100 04/16/22 13:29 04/16/22 13:29 04/16/22 13:29 04/16/22 13:29 04/16/22 13:29 General: Alert, Oriented x3 HEENT: Atraumatic, Normocephalic Neck: Supple Respiratory: Normal air movement Cardiovascular: Regular rate/rhythm, Normal S1 S2 Gastrointestinal: Soft and benign Musculoskeletal: No swelling Neurological: Normal speech, Normal strength at 5/5 x4 extr Laboratory Data at Discharge: WBC 5.3 K/uL (4.3-10.9) D 04/16/22 05:10 Hgb 10.3 g/dL (12.0-15.0) L 04/16/22 05:10 Hct 31.3 % (36.0-45.0) L 04/16/22 05:10 Plt Count 343 K/uL (152-406) 04/16/22 05:10 PT 9.7 SECONDS (9.5-12.5) 04/08/22 21:35 INR 0.88 04/08/22 21:35 Sodium 135 mmol/L (136-145) L 04/16/22 05:10 Potassium 4.0 mmol/L (3.5-5.1) 04/16/22 05:10 BUN 40 mg/dL (7-18) H 04/16/22 05:10 Creatinine 2.34 mg/dL (0.55-1.3) H 04/16/22 05:10 Glucose 143 mg/dL (74-106) H 04/16/22 05:10 Uric Acid 7.8 mg/dL (2.6-6.0) H 04/09/22 01:24 Phosphorus 5.3 mg/dL (2.5-4.9) H 04/13/22 04:00 Magnesium 1.7 mg/dL (1.8-2.4) L 04/13/22 04:00 Total Bilirubin 0.2 mg/dL (0.2-1.0) 04/16/22 05:10 AST 13 U/L (15-37) L 04/16/22 05:10 ALT 17 U/L (12-78) 04/16/22 05:10 Alkaline Phosphatase 92 U/L (45-117) 04/16/22 05:10 Lipase 806 U/L (73-393) H 04/08/22 21:35 Home Medications: Amlodipine Besylate 10 mg PO DAILY 03/24/22 Carvedilol [Coreg] 25 mg PO BID 03/24/22 Doxazosin [Cardura*] 2 mg PO BEDTIME 03/24/22 Hydralazine [Apresoline*] 25 mg PO BID* 03/24/22 Calcium Carbonate/Mag Carb [Magnebind 400 Tablet] 1 each PO TIDWM 30 Days #90 tablet 04/16/22 Gabapentin 100 mg PO TID 30 Days #90 04/16/22 New Medications: Gabapentin 100 mg PO TID 30 Days #90 Calcium Carbonate/Mag Carb [Magnebind 400 Tablet] 1 each PO TIDWM 30 Days #90 t ablet Diet: AHA Activity: Ad aleksander Followup: Yennifer Alarcon MD [ACTIVE - CAN ADMIT] - Bing Christie DO [Primary Care Provider] -
[2022-04-16] MEDS ORDERED: carvediloL 25 MG TAB PO SCH (17:00)
== END 2022-04-16 15:02 | disposition home or self-care (01) | DRG 682 ==
LOC: ER 20:21 → ERHOLD 23:38 → 2ND 04-09 01:31
PROVIDERS: ADMIT Hospitalist; ATTEND Hospitalist
DX: N17.9 Acute kidney failure, unspecified (principal); E43 Unspecified severe protein-calorie malnutrition; J96.00 Acute respiratory failure, unspecified whether with hypoxia or hypercapnia; J18.9 Pneumonia, unspecified organism; E87.1 Hypo-osmolality and hyponatremia; E87.2 Acidosis; I48.20 Chronic atrial fibrillation, unspecified; Z68.25 Body mass index [BMI] 25.0-25.9, adult; N15.9 Renal tubulo-interstitial disease, unspecified; N13.9 Obstructive and reflux uropathy, unspecified; D50.9 Iron deficiency anemia, unspecified; E87.5 Hyperkalemia; N81.10 Cystocele, unspecified; I12.9 Hypertensive chronic kidney disease with stage 1 through stage 4 chronic kidney disease, or unspecified chronic kidney disease; E11.22 Type 2 diabetes mellitus with diabetic chronic kidney disease; N18.30 Chronic kidney disease, stage 3 unspecified; E86.0 Dehydration; E83.39 Other disorders of phosphorus metabolism; H91.90 Unspecified hearing loss, unspecified ear; N95.2 Postmenopausal atrophic vaginitis; Z74.01 Bed confinement status; Z23 Encounter for immunization; Z20.822 Contact with and (suspected) exposure to COVID-19
CPT/HCPCS: 36415; 36430; 70450; 71045; 71250; 72125; 76770; 80048; 80053; 80069; 80076; 81003; 81015; 82570; 82805; 82947; 83605; 83690; 83735; 83880; 83930; 83935; 84100; 84132; 84156; 84300; 84439; 84443; 84484; 84550; 85014; 85018; 85025; 85610; 86705; 86706; 86803; 86850; 86900; 86901; 87040; 87086; 87088; 87340; 90471; 90732; 93005; 94660; 94760; 96361; 96365; 96367; 96375; 97116; 97161; 97530; 99285; J0360; J0456; J1644; J1815; J1940; J2405; J7030; J7050; P9016; U0003

== ENCOUNTER 2023-09-08 18:16 | Observation (INO) | payer MEDICARE ==
--- OUTSIDE RECORDS SUMMARY | 2023-09-08 18:23 | XMS REPORT | Continuity of Care Document ---
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 Flonase 50 MCG/ACT MCG/ACT _in_eac MCG/ACT h_nostr il} amLODIPine amLODIPine No 1{table QD amLODIPine Besylate 10 Besylate 10 t} Besylate MG MG 10 MG Contour Contour No Contour Test - Test - Test - Lancets - Lancets - No Lancets - Gabapentin Gabapentin No Gabapentin 600 MG 600 MG 600 MG One Touch One Touch No QD One Touch test strips test strips test test strips test strips strips test strips Flonase 50 Flonase 50 No 2{spray QD Flonase 50 MCG/ACT MCG/ACT _in_eac MCG/ACT h_nostr il} hydrALAZINE hydrALAZINE No 1{table hydrALAZIN HCl 25 MG HCl 25 MG t} E HCl 25 MG Sertraline Sertraline No Sertraline HCl 25 MG HCl 25 MG HCl 25 MG One Touch One Touch No TID One Touch test strips test strips test test strips test strips strips test strips Doxazosin Doxazosin No QD Doxazosin Mesylate 2 Mesylate 2 Mesylate 2 MG MG MG Cetirizine Cetirizine No 1{table Cetirizine HCl 10 MG HCl 10 MG t} HCl 10 MG Coreg 25 MG Coreg 25 MG No 1{table Coreg 25 t} MG Acetaminoph Acetaminoph No 2{table Acetaminop en-Codeine en-Codeine t_as_ne hen-Codein 300-30 MG 300-30 MG eded} e 300-30 MG metFORMIN metFORMIN No 1{table TID metFORMIN HCl 500 MG HCl 500 MG t_with_ HCl 500 MG a_meal} Fluticasone Fluticasone No Fluticason Propionate Propionate e 50 MCG/ACT 50 MCG/ACT Propionate 50 MCG/ACT Aspirin 81 Aspirin 81 No 1{table QD Aspirin 81 MG MG t} MG Zoloft 100 Zoloft 100 No 1{table QD Zoloft 100 MG MG t} MG Sertraline Sertraline No Sertraline HCl 50 MG HCl 50 MG HCl 50 MG Gabapentin Gabapentin No 1{capsu TID Gabapentin 600 MG 600 MG le} 600 MG glipiZIDE 5 glipiZIDE 5 No 1{table BID glipiZIDE MG MG t} 5 MG Microlet Microlet No Microlet Lancets - Lancets - Lancets - Sodium Sodium No BID Sodium Chloride 1 Chloride 1 Chloride 1 GM GM GM Doxazosin Doxazosin No Doxazosin Mesylate 2 Mesylate 2 Mesylate 2 MG MG MG Ferrous Ferrous No 1{table QD Ferrous Sulfate 325 Sulfate 325 t} Sulfate (65 Fe) MG (65 Fe) MG 325 (65 Fe) MG amLODIPine amLODIPine No 1{table QD amLODIPine Besylate 10 Besylate 10 t} Besylate MG MG 10 MG Olmesartan Olmesartan No 1{table Olmesartan Medoxomil Medoxomil t} Medoxomil 20 MG 20 MG 20 MG diazePAM 2 diazePAM 2 No TID diazePAM 2 mg mg mg glipiZIDE 5 glipiZIDE 5 No 1{table QD glipiZIDE MG MG t} 5 MG One Touch One Touch No QD One Touch test strips test strips test test strips test strips strips test strips Cetirizine Cetirizine No 1{table Cetirizine HCl 10 MG HCl 10 MG t} HCl 10 MG Gabapentin Gabapentin No Gabapentin 600 MG 600 MG 600 MG Sertraline Sertraline No Sertraline HCl 50 MG HCl 50 MG HCl 50 MG One Touch One Touch No TID One Touch test strips test strips test test strips test strips strips test strips glipiZIDE 5 glipiZIDE 5 No 1{table BID glipiZIDE MG MG t} 5 MG Contour Contour No Contour Test - Test - Test - Doxazosin Doxazosin No QD Doxazosin Mesylate 2 Mesylate 2 Mesylate 2 MG MG MG glipiZIDE 5 glipiZIDE 5 No 1{table QD glipiZIDE MG MG t} 5 MG Doxazosin Doxazosin No Doxazosin Mesylate 2 Mesylate 2 Mesylate 2 MG MG MG Sertraline Sertraline No Sertraline HCl 25 MG HCl 25 MG HCl 25 MG Gabapentin Gabapentin No 1{capsu TID Gabapentin 600 MG 600 MG le} 600 MG Aspirin 81 Aspirin 81 No 1{table QD Aspirin 81 MG MG t} MG Sodium Sodium No BID Sodium Chloride 1 Chloride 1 Chloride 1 GM GM GM Zoloft 100 Zoloft 100 No 1{table QD Zoloft 100 MG MG t} MG Microlet Microlet No Microlet Lancets - Lancets - Lancets - Coreg 25 MG Coreg 25 MG No 1{table Coreg 25 t} MG metFORMIN metFORMIN No 1{table TID metFORMIN HCl 500 MG HCl 500 MG t_with_ HCl 500 MG a_meal} Lancets - Lancets - No Lancets - Flonase 50 Flonase 50 No 2{spray QD Flonase 50 MCG/ACT MCG/ACT _in_eac MCG/ACT h_nostr il} Ferrous Ferrous No 1{table QD Ferrous Sulfate 325 Sulfate 325 t} Sulfate (65 Fe) MG (65 Fe) MG 325 (65 Fe) MG diazePAM 2 diazePAM 2 No TID diazePAM 2 mg mg mg Acetaminoph Acetaminoph No 2{table Acetaminop en-Codeine en-Codeine t_as_ne hen-Codein 300-30 MG 300-30 MG eded} e 300-30 MG amLODIPine amLODIPine No 1{table QD amLODIPine Besylate 10 Besylate 10 t} Besylate MG MG 10 MG Fluticasone Fluticasone No Fluticason Propionate Propionate e 50 MCG/ACT 50 MCG/ACT Propionate 50 MCG/ACT hydrALAZINE hydrALAZINE No 1{table hydrALAZIN HCl 25 MG HCl 25 MG t} E HCl 25 MG Olmesartan Olmesartan No 1{table Olmesartan Medoxomil Medoxomil t} Medoxomil 20 MG 20 MG 20 MG clonazePAM clonazePAM No 1{table QD clonazePAM 0.5 MG 0.5 MG t_at_be 0.5 MG dtime} Gabapentin Gabapentin No Gabapentin 600 MG 600 MG 600 MG Cetirizine Cetirizine No 1{table Cetirizine HCl 10 MG HCl 10 MG t} HCl 10 MG diazePAM 2 diazePAM 2 No TID diazePAM 2 mg mg mg Sertraline Sertraline No Sertraline HCl 50 MG HCl 50 MG HCl 50 MG Contour Contour No Contour Test - Test - Test - Sertraline Sertraline No Sertraline HCl 25 MG HCl 25 MG HCl 25 MG One Touch One Touch No QD One Touch test strips test strips test test strips test strips strips test strips glipiZIDE 5 glipiZIDE 5 No 1{table BID glipiZIDE MG MG t} 5 MG One Touch One Touch No TID One Touch test strips test strips test test strips test strips strips test strips glipiZIDE 5 glipiZIDE 5 No 1{table QD glipiZIDE MG MG t} 5 MG Aspirin 81 Aspirin 81 No 1{table QD Aspirin 81 MG MG t} MG Acetaminoph Acetaminoph No 2{table Acetaminop en-Codeine en-Codeine t_as_ne hen-Codein 300-30 MG 300-30 MG eded} e 300-30 MG Sodium Sodium No BID Sodium Chloride 1 Chloride 1 Chloride 1 GM GM GM metFORMIN metFORMIN No 1{table TID metFORMIN HCl 500 MG HCl 500 MG t_with_ HCl 500 MG a_meal} Microlet Microlet No Microlet Lancets - Lancets - Lancets - Coreg 25 MG Coreg 25 MG No 1{table Coreg 25 t} MG Gabapentin Gabapentin No 1{capsu TID Gabapentin 600 MG 600 MG le} 600 MG Lancets - Lancets - No Lancets - Flonase 50 Flonase 50 No 2{spray QD Flonase 50 MCG/ACT MCG/ACT _in_eac MCG/ACT h_nostr il} Ferrous Ferrous No 1{table QD Ferrous Sulfate 325 Sulfate 325 t} Sulfate (65 Fe) MG (65 Fe) MG 325 (65 Fe) MG Zoloft 100 Zoloft 100 No 1{table QD Zoloft 100 MG MG t} MG Doxazosin Doxazosin No Doxazosin Mesylate 2 Mesylate 2 Mesylate 2 MG MG MG amLODIPine amLODIPine No 1{table QD amLODIPine Besylate 10 Besylate 10 t} Besylate MG MG 10 MG Fluticasone Fluticasone No Fluticason Propionate Propionate e 50 MCG/ACT 50 MCG/ACT Propionate 50 MCG/ACT hydrALAZINE hydrALAZINE No 1{table hydrALAZIN HCl 25 MG HCl 25 MG t} E HCl 25 MG Olmesartan Olmesartan No 1{table Olmesartan Medoxomil Medoxomil t} Medoxomil 20 MG 20 MG 20 MG clonazePAM clonazePAM No 1{table QD clonazePAM 0.5 MG 0.5 MG t_at_be 0.5 MG dtime} Gabapentin Gabapentin No Gabapentin 600 MG 600 MG 600 MG Cetirizine Cetirizine No 1{table Cetirizine HCl 10 MG HCl 10 MG t} HCl 10 MG diazePAM 2 diazePAM 2 No TID diazePAM 2 mg mg mg Sertraline Sertraline No Sertraline HCl 50 MG HCl 50 MG HCl 50 MG Contour Contour No Contour Test - Test - Test - Sertraline Sertraline No Sertraline HCl 25 MG HCl 25 MG HCl 25 MG One Touch One Touch No QD One Touch test strips test strips test test strips test strips strips test strips glipiZIDE 5 glipiZIDE 5 No 1{table BID glipiZIDE MG MG t} 5 MG One Touch One Touch No TID One Touch test strips test strips test test strips test strips strips test strips glipiZIDE 5 glipiZIDE 5 No 1{table QD glipiZIDE MG MG t} 5 MG Aspirin 81 Aspirin 81 No 1{table QD Aspirin 81 MG MG t} MG Acetaminoph Acetaminoph No 2{table Acetaminop en-Codeine en-Codeine t_as_ne hen-Codein 300-30 MG 300-30 MG eded} e 300-30 MG Sodium Sodium No BID Sodium Chloride 1 Chloride 1 Chloride 1 GM GM GM metFORMIN metFORMIN No 1{table TID metFORMIN HCl 500 MG HCl 500 MG t_with_ HCl 500 MG a_meal} Microlet Microlet No Microlet Lancets - Lancets - Lancets - Coreg 25 MG Coreg 25 MG No 1{table Coreg 25 t} MG Gabapentin Gabapentin No 1{capsu TID Gabapentin 600 MG 600 MG le} 600 MG Lancets - Lancets - No Lancets - Flonase 50 Flonase 50 No 2{spray QD Flonase 50 MCG/ACT MCG/ACT _in_eac MCG/ACT h_nostr il} Ferrous Ferrous No 1{table QD Ferrous Sulfate 325 Sulfate 325 t} Sulfate (65 Fe) MG (65 Fe) MG 325 (65 Fe) MG Zoloft 100 Zoloft 100 No 1{table QD Zoloft 100 MG MG t} MG Doxazosin Doxazosin No Doxazosin Mesylate 2 Mesylate 2 Mesylate 2 MG MG MG amLODIPine amLODIPine No 1{table QD amLODIPine Besylate 10 Besylate 10 t} Besylate MG MG 10 MG Fluticasone Fluticasone No Fluticason Propionate Propionate e 50 MCG/ACT 50 MCG/ACT Propionate 50 MCG/ACT hydrALAZINE hydrALAZINE No 1{table hydrALAZIN HCl 25 MG HCl 25 MG t} E HCl 25 MG Olmesartan Olmesartan No 1{table Olmesartan Medoxomil Medoxomil t} Medoxomil 20 MG 20 MG 20 MG clonazePAM clonazePAM No 1{table QD clonazePAM 0.5 MG 0.5 MG t_at_be 0.5 MG dtime} One Touch One Touch No QD One Touch test strips test strips test test strips test strips strips test strips Sertraline Sertraline No Sertraline HCl 100 MG HCl 100 MG HCl 100 MG Gabapentin Gabapentin No Gabapentin 600 MG 600 MG 600 MG Cetirizine Cetirizine No 1{table Cetirizine HCl 10 MG HCl 10 MG t} HCl 10 MG One Touch One Touch No TID One Touch test strips test strips test test strips test strips strips test strips Sertraline Sertraline No Sertraline HCl 25 MG HCl 25 MG HCl 25 MG Contour Contour No Contour Test - Test - Test - glipiZIDE 5 glipiZIDE 5 No 1{table BID glipiZIDE MG MG t} 5 MG Lancets - Lancets - No Lancets - glipiZIDE 5 glipiZIDE 5 No 1{table QD glipiZIDE MG MG t} 5 MG Gabapentin Gabapentin No 1{capsu TID Gabapentin 600 MG 600 MG le} 600 MG Aspirin 81 Aspirin 81 No 1{table QD Aspirin 81 MG MG t} MG Sodium Sodium No BID Sodium Chloride 1 Chloride 1 Chloride 1 GM GM GM amLODIPine amLODIPine No amLODIPine Besylate 10 Besylate 10 Besylate MG MG 10 MG Flonase 50 Flonase 50 No 2{spray QD Flonase 50 MCG/ACT MCG/ACT _in_eac MCG/ACT h_nostr il} Doxazosin Doxazosin No Doxazosin Mesylate 2 Mesylate 2 Mesylate 2 MG MG MG metFORMIN metFORMIN No 1{table TID metFORMIN HCl 500 MG HCl 500 MG t_with_ HCl 500 MG a_meal} Microlet Microlet No Microlet Lancets - Lancets - Lancets - Sertraline Sertraline No Sertraline HCl 50 MG HCl 50 MG HCl 50 MG Ferrous Ferrous No 1{table QD Ferrous Sulfate 325 Sulfate 325 t} Sulfate (65 Fe) MG (65 Fe) MG 325 (65 Fe) MG diazePAM 2 diazePAM 2 No TID diazePAM 2 mg mg mg Acetaminoph Acetaminoph No 2{table Acetaminop en-Codeine en-Codeine t_as_ne hen-Codein 300-30 MG 300-30 MG eded} e 300-30 MG Fluticasone Fluticasone No Fluticason Propionate Propionate e 50 MCG/ACT 50 MCG/ACT Propionate 50 MCG/ACT clonazePAM clonazePAM No 1{table QD clonazePAM 0.5 MG 0.5 MG t_at_be 0.5 MG dtime} Olmesartan Olmesartan No 1{table Olmesartan Medoxomil Medoxomil t} Medoxomil 20 MG 20 MG 20 MG Carvedilol Carvedilol No Carvedilol 25 MG 25 MG 25 MG hydrALAZINE hydrALAZINE No hydrALAZIN HCl 25 MG HCl 25 MG E HCl 25 MG One Touch One Touch No QD One Touch test strips test strips test test strips test strips strips test strips Sertraline Sertraline No Sertraline HCl 100 MG HCl 100 MG HCl 100 MG Gabapentin Gabapentin No Gabapentin 600 MG 600 MG 600 MG Cetirizine Cetirizine No 1{table Cetirizine HCl 10 MG HCl 10 MG t} HCl 10 MG One Touch One Touch No TID One Touch test strips test strips test test strips test strips strips test strips Sertraline Sertraline No Sertraline HCl 25 MG HCl 25 MG HCl 25 MG Contour Contour No Contour Test - Test - Test - glipiZIDE 5 glipiZIDE 5 No 1{table BID glipiZIDE MG MG t} 5 MG Lancets - Lancets - No Lancets - glipiZIDE 5 glipiZIDE 5 No 1{table QD glipiZIDE MG MG t} 5 MG metFORMIN metFORMIN No 1{table TID metFORMIN HCl 500 MG HCl 500 MG t_with_ HCl 500 MG a_meal} Gabapentin Gabapentin No 1{capsu TID Gabapentin 600 MG 600 MG le} 600 MG Ferrous Ferrous No 1{table QD Ferrous Sulfate 325 Sulfate 325 t} Sulfate (65 Fe) MG (65 Fe) MG 325 (65 Fe) MG amLODIPine amLODIPine No amLODIPine Besylate 10 Besylate 10 Besylate MG MG 10 MG Flonase 50 Flonase 50 No 2{spray QD Flonase 50 MCG/ACT MCG/ACT _in_eac MCG/ACT h_nostr il} Acetaminoph Acetaminoph No 2{table Acetaminop en-Codeine en-Codeine t_as_ne hen-Codein 300-30 MG 300-30 MG eded} e 300-30 MG Olmesartan Olmesartan No Olmesartan Medoxomil Medoxomil Medoxomil 40 MG 40 MG 40 MG Microlet Microlet No Microlet Lancets - Lancets - Lancets - Sertraline Sertraline No Sertraline HCl 50 MG HCl 50 MG HCl 50 MG Doxazosin Doxazosin No Doxazosin Mesylate 2 Mesylate 2 Mesylate 2 MG MG MG diazePAM 2 diazePAM 2 No TID diazePAM 2 mg mg mg Aspirin 81 Aspirin 81 No 1{table QD Aspirin 81 MG MG t} MG Sodium Sodium No BID Sodium Chloride 1 Chloride 1 Chloride 1 GM GM GM clonazePAM clonazePAM No 1{table QD clonazePAM 0.5 MG 0.5 MG t_at_be 0.5 MG dtime} Fluticasone Fluticasone No Fluticason Propionate Propionate e 50 MCG/ACT 50 MCG/ACT Propionate 50 MCG/ACT Carvedilol Carvedilol No Carvedilol 25 MG 25 MG 25 MG hydrALAZINE hydrALAZINE No hydrALAZIN HCl 25 MG HCl 25 MG E HCl 25 MG Cetirizine Cetirizine No 1{table Cetirizine HCl 10 MG HCl 10 MG t} HCl 10 MG Sertraline Sertraline No Sertraline HCl 50 MG HCl 50 MG HCl 50 MG clonazePAM clonazePAM No 1{table QD clonazePAM 0.5 MG 0.5 MG t_at_be 0.5 MG dtime} hydrALAZINE hydrALAZINE No hydrALAZIN HCl 25 MG HCl 25 MG E HCl 25 MG amLODIPine amLODIPine No 1{table QD amLODIPine Besylate 10 Besylate 10 t} Besylate MG MG 10 MG Doxazosin Doxazosin No QD Doxazosin Mesylate 2 Mesylate 2 Mesylate 2 MG MG MG One Touch One Touch No TID One Touch test strips test strips test test strips test strips strips test strips metFORMIN metFORMIN No 1{table TID metFORMIN HCl 500 MG HCl 500 MG t_with_ HCl 500 MG a_meal} Flonase 50 Flonase 50 No 2{spray QD Flonase 50 MCG/ACT MCG/ACT _in_eac MCG/ACT h_nostr il} Olmesartan Olmesartan No 1{table Olmesartan Medoxomil Medoxomil t} Medoxomil 20 MG 20 MG 20 MG Coreg 25 MG Coreg 25 MG No 1{table Coreg 25 t} MG Zoloft 100 Zoloft 100 No 1{table QD Zoloft 100 MG MG t} MG Microlet Microlet No Microlet Lancets - Lancets - Lancets - hydrALAZINE hydrALAZINE No 1{table hydrALAZIN HCl 25 MG HCl 25 MG t} E HCl 25 MG Sertraline Sertraline No Sertraline HCl 100 MG HCl 100 MG HCl 100 MG Aspirin 81 Aspirin 81 No 1{table QD Aspirin 81 MG MG t} MG Doxazosin Doxazosin No Doxazosin Mesylate 2 Mesylate 2 Mesylate 2 MG MG MG amLODIPine amLODIPine No amLODIPine Besylate 10 Besylate 10 Besylate MG MG 10 MG Lancets - Lancets - No Lancets - Sodium Sodium No BID Sodium Chloride 1 Chloride 1 Chloride 1 GM GM GM Fluticasone Fluticasone No Fluticason Propionate Propionate e 50 MCG/ACT 50 MCG/ACT Propionate 50 MCG/ACT Gabapentin Gabapentin No 1{capsu TID Gabapentin 300 MG 300 MG le} 300 MG Gabapentin Gabapentin No Gabapentin 600 MG 600 MG 600 MG glipiZIDE 5 glipiZIDE 5 No 1{table BID glipiZIDE MG MG t} 5 MG One Touch One Touch No QD One Touch test strips test strips test test strips test strips strips test strips Ferrous Ferrous No 1{table QD Ferrous Sulfate 325 Sulfate 325 t} Sulfate (65 Fe) MG (65 Fe) MG 325 (65 Fe) MG Carvedilol Carvedilol No Carvedilol 25 MG 25 MG 25 MG Contour Contour No Contour Test - Test - Test - Acetaminoph Acetaminoph No 2{table Acetaminop en-Codeine en-Codeine t_as_ne hen-Codein 300-30 MG 300-30 MG eded} e 300-30 MG diazePAM 2 diazePAM 2 No TID diazePAM 2 mg mg mg Sertraline Sertraline No Sertraline HCl 25 MG HCl 25 MG HCl 25 MG glipiZIDE 5 glipiZIDE 5 No 1{table QD glipiZIDE MG MG t} 5 MG Cetirizine Cetirizine No 1{table Cetirizine HCl 10 MG HCl 10 MG t} HCl 10 MG Sertraline Sertraline No Sertraline HCl 50 MG HCl 50 MG HCl 50 MG clonazePAM clonazePAM No 1{table QD clonazePAM 0.5 MG 0.5 MG t_at_be 0.5 MG dtime} hydrALAZINE hydrALAZINE No hydrALAZIN HCl 25 MG HCl 25 MG E HCl 25 MG amLODIPine amLODIPine No 1{table QD amLODIPine Besylate 10 Besylate 10 t} Besylate MG MG 10 MG Doxazosin Doxazosin No QD Doxazosin Mesylate 2 Mesylate 2 Mesylate 2 MG MG MG One Touch One Touch No TID One Touch test strips test strips test test strips test strips strips test strips metFORMIN metFORMIN No 1{table TID metFORMIN HCl 500 MG HCl 500 MG t_with_ HCl 500 MG a_meal} Flonase 50 Flonase 50 No 2{spray QD Flonase 50 MCG/ACT MCG/ACT _in_eac MCG/ACT h_nostr il} Olmesartan Olmesartan No 1{table Olmesartan Medoxomil Medoxomil t} Medoxomil 20 MG 20 MG 20 MG Coreg 25 MG Coreg 25 MG No 1{table Coreg 25 t} MG Zoloft 100 Zoloft 100 No 1{table QD Zoloft 100 MG MG t} MG Microlet Microlet No Microlet Lancets - Lancets - Lancets - hydrALAZINE hydrALAZINE No 1{table hydrALAZIN HCl 25 MG HCl 25 MG t} E HCl 25 MG Sertraline Sertraline No Sertraline HCl 100 MG HCl 100 MG HCl 100 MG Aspirin 81 Aspirin 81 No 1{table QD Aspirin 81 MG MG t} MG Doxazosin Doxazosin No Doxazosin Mesylate 2 Mesylate 2 Mesylate 2 MG MG MG amLODIPine amLODIPine No amLODIPine Besylate 10 Besylate 10 Besylate MG MG 10 MG Lancets - Lancets - No Lancets - Sodium Sodium No BID Sodium Chloride 1 Chloride 1 Chloride 1 GM GM GM Fluticasone Fluticasone No Fluticason Propionate Propionate e 50 MCG/ACT 50 MCG/ACT Propionate 50 MCG/ACT Gabapentin Gabapentin No 1{capsu TID Gabapentin 300 MG 300 MG le} 300 MG Gabapentin Gabapentin No Gabapentin 600 MG 600 MG 600 MG glipiZIDE 5 glipiZIDE 5 No 1{table BID glipiZIDE MG MG t} 5 MG One Touch One Touch No QD One Touch test strips test strips test test strips test strips strips test strips Ferrous Ferrous No 1{table QD Ferrous Sulfate 325 Sulfate 325 t} Sulfate (65 Fe) MG (65 Fe) MG 325 (65 Fe) MG Carvedilol Carvedilol No Carvedilol 25 MG 25 MG 25 MG Contour Contour No Contour Test - Test - Test - Acetaminoph Acetaminoph No 2{table Acetaminop en-Codeine en-Codeine t_as_ne hen-Codein 300-30 MG 300-30 MG eded} e 300-30 MG diazePAM 2 diazePAM 2 No TID diazePAM 2 mg mg mg Sertraline Sertraline No Sertraline HCl 25 MG HCl 25 MG HCl 25 MG glipiZIDE 5 glipiZIDE 5 No 1{table QD glipiZIDE MG MG t} 5 MG Cetirizine Cetirizine No 1{table Cetirizine HCl 10 MG HCl 10 MG t} HCl 10 MG Sertraline Sertraline No Sertraline HCl 50 MG HCl 50 MG HCl 50 MG clonazePAM clonazePAM No 1{table QD clonazePAM 0.5 MG 0.5 MG t_at_be 0.5 MG dtime} hydrALAZINE hydrALAZINE No hydrALAZIN HCl 25 MG HCl 25 MG E HCl 25 MG amLODIPine amLODIPine No 1{table QD amLODIPine Besylate 10 Besylate 10 t} Besylate MG MG 10 MG Doxazosin Doxazosin No QD Doxazosin Mesylate 2 Mesylate 2 Mesylate 2 MG MG MG One Touch One Touch No TID One Touch test strips test strips test test strips test strips strips test strips metFORMIN metFORMIN No 1{table TID metFORMIN HCl 500 MG HCl 500 MG t_with_ HCl 500 MG a_meal} Flonase 50 Flonase 50 No 2{spray QD Flonase 50 MCG/ACT MCG/ACT _in_eac MCG/ACT h_nostr il} Olmesartan Olmesartan No 1{table Olmesartan Medoxomil Medoxomil t} Medoxomil 20 MG 20 MG 20 MG Coreg 25 MG Coreg 25 MG No 1{table Coreg 25 t} MG Zoloft 100 Zoloft 100 No 1{table QD Zoloft 100 MG MG t} MG Microlet Microlet No Microlet Lancets - Lancets - Lancets - hydrALAZINE hydrALAZINE No 1{table hydrALAZIN HCl 25 MG HCl 25 MG t} E HCl 25 MG Sertraline Sertraline No Sertraline HCl 100 MG HCl 100 MG HCl 100 MG Aspirin 81 Aspirin 81 No 1{table QD Aspirin 81 MG MG t} MG Doxazosin Doxazosin No Doxazosin Mesylate 2 Mesylate 2 Mesylate 2 MG MG MG amLODIPine amLODIPine No amLODIPine Besylate 10 Besylate 10 Besylate MG MG 10 MG Lancets - Lancets - No Lancets - Sodium Sodium No BID Sodium Chloride 1 Chloride 1 Chloride 1 GM GM GM Fluticasone Fluticasone No Fluticason Propionate Propionate e 50 MCG/ACT 50 MCG/ACT Propionate 50 MCG/ACT Gabapentin Gabapentin No 1{capsu TID Gabapentin 300 MG 300 MG le} 300 MG Gabapentin Gabapentin No Gabapentin 600 MG 600 MG 600 MG glipiZIDE 5 glipiZIDE 5 No 1{table BID glipiZIDE MG MG t} 5 MG One Touch One Touch No QD One Touch test strips test strips test test strips test strips strips test strips Ferrous Ferrous No 1{table QD Ferrous Sulfate 325 Sulfate 325 t} Sulfate (65 Fe) MG (65 Fe) MG 325 (65 Fe) MG Carvedilol Carvedilol No Carvedilol 25 MG 25 MG 25 MG Contour Contour No Contour Test - Test - Test - Acetaminoph Acetaminoph No 2{table Acetaminop en-Codeine en-Codeine t_as_ne hen-Codein 300-30 MG 300-30 MG eded} e 300-30 MG diazePAM 2 diazePAM 2 No TID diazePAM 2 mg mg mg Sertraline Sertraline No Sertraline HCl 25 MG HCl 25 MG HCl 25 MG glipiZIDE 5 glipiZIDE 5 No 1{table QD glipiZIDE MG MG t} 5 MG Cetirizine Cetirizine No 1{table Cetirizine HCl 10 MG HCl 10 MG t} HCl 10 MG Sertraline Sertraline No Sertraline HCl 50 MG HCl 50 MG HCl 50 MG clonazePAM clonazePAM No 1{table QD clonazePAM 0.5 MG 0.5 MG t_at_be 0.5 MG dtime} hydrALAZINE hydrALAZINE No hydrALAZIN HCl 25 MG HCl 25 MG E HCl 25 MG amLODIPine amLODIPine No 1{table QD amLODIPine Besylate 10 Besylate 10 t} Besylate MG MG 10 MG Doxazosin Doxazosin No QD Doxazosin Mesylate 2 Mesylate 2 Mesylate 2 MG MG MG One Touch One Touch No TID One Touch test strips test strips test test strips test strips strips test strips metFORMIN metFORMIN No 1{table TID metFORMIN HCl 500 MG HCl 500 MG t_with_ HCl 500 MG a_meal} Flonase 50 Flonase 50 No 2{spray QD Flonase 50 MCG/ACT MCG/ACT _in_eac MCG/ACT h_nostr il} Olmesartan Olmesartan No 1{table Olmesartan Medoxomil Medoxomil t} Medoxomil 20 MG 20 MG 20 MG Coreg 25 MG Coreg 25 MG No 1{table Coreg 25 t} MG Zoloft 100 Zoloft 100 No 1{table QD Zoloft 100 MG MG t} MG Microlet Microlet No Microlet Lancets - Lancets - Lancets - hydrALAZINE hydrALAZINE No 1{table hydrALAZIN HCl 25 MG HCl 25 MG t} E HCl 25 MG Sertraline Sertraline No Sertraline HCl 100 MG HCl 100 MG HCl 100 MG Aspirin 81 Aspirin 81 No 1{table QD Aspirin 81 MG MG t} MG Doxazosin Doxazosin No Doxazosin Mesylate 2 Mesylate 2 Mesylate 2 MG MG MG amLODIPine amLODIPine No amLODIPine Besylate 10 Besylate 10 Besylate MG MG 10 MG Lancets - Lancets - No Lancets - Sodium Sodium No BID Sodium Chloride 1 Chloride 1 Chloride 1 GM GM GM Fluticasone Fluticasone No Fluticason Propionate Propionate e 50 MCG/ACT 50 MCG/ACT Propionate 50 MCG/ACT Gabapentin Gabapentin No 1{capsu TID Gabapentin 300 MG 300 MG le} 300 MG Gabapentin Gabapentin No Gabapentin 600 MG 600 MG 600 MG glipiZIDE 5 glipiZIDE 5 No 1{table BID glipiZIDE MG MG t} 5 MG One Touch One Touch No QD One Touch test strips test strips test test strips test strips strips test strips Ferrous Ferrous No 1{table QD Ferrous Sulfate 325 Sulfate 325 t} Sulfate (65 Fe) MG (65 Fe) MG 325 (65 Fe) MG Carvedilol Carvedilol No Carvedilol 25 MG 25 MG 25 MG Contour Contour No Contour Test - Test - Test - Acetaminoph Acetaminoph No 2{table Acetaminop en-Codeine en-Codeine t_as_ne hen-Codein 300-30 MG 300-30 MG eded} e 300-30 MG diazePAM 2 diazePAM 2 No TID diazePAM 2 mg mg mg Sertraline Sertraline No Sertraline HCl 25 MG HCl 25 MG HCl 25 MG glipiZIDE 5 glipiZIDE 5 No 1{table QD glipiZIDE MG MG t} 5 MG Cetirizine Cetirizine No 1{table Cetirizine HCl 10 MG HCl 10 MG t} HCl 10 MG Sertraline Sertraline No Sertraline HCl 50 MG HCl 50 MG HCl 50 MG clonazePAM clonazePAM No 1{table QD clonazePAM 0.5 MG 0.5 MG t_at_be 0.5 MG dtime} hydrALAZINE hydrALAZINE No hydrALAZIN HCl 25 MG HCl 25 MG E HCl 25 MG amLODIPine amLODIPine No 1{table QD amLODIPine Besylate 10 Besylate 10 t} Besylate MG MG 10 MG Doxazosin Doxazosin No QD Doxazosin Mesylate 2 Mesylate 2 Mesylate 2 MG MG MG One Touch One Touch No TID One Touch test strips test strips test test strips test strips strips test strips metFORMIN metFORMIN No 1{table TID metFORMIN HCl 500 MG HCl 500 MG t_with_ HCl 500 MG a_meal} Flonase 50 Flonase 50 No 2{spray QD Flonase 50 MCG/ACT MCG/ACT _in_eac MCG/ACT h_nostr il} Olmesartan Olmesartan No 1{table Olmesartan Medoxomil Medoxomil t} Medoxomil 20 MG 20 MG 20 MG Coreg 25 MG Coreg 25 MG No 1{table Coreg 25 t} MG Zoloft 100 Zoloft 100 No 1{table QD Zoloft 100 MG MG t} MG Microlet Microlet No Microlet Lancets - Lancets - Lancets - hydrALAZINE hydrALAZINE No 1{table hydrALAZIN HCl 25 MG HCl 25 MG t} E HCl 25 MG Sertraline Sertraline No Sertraline HCl 100 MG HCl 100 MG HCl 100 MG Aspirin 81 Aspirin 81 No 1{table QD Aspirin 81 MG MG t} MG Doxazosin Doxazosin No Doxazosin Mesylate 2 Mesylate 2 Mesylate 2 MG MG MG amLODIPine amLODIPine No amLODIPine Besylate 10 Besylate 10 Besylate MG MG 10 MG Lancets - Lancets - No Lancets - Sodium Sodium No BID Sodium Chloride 1 Chloride 1 Chloride 1 GM GM GM Fluticasone Fluticasone No Fluticason Propionate Propionate e 50 MCG/ACT 50 MCG/ACT Propionate 50 MCG/ACT Gabapentin Gabapentin No 1{capsu TID Gabapentin 300 MG 300 MG le} 300 MG Gabapentin Gabapentin No Gabapentin 600 MG 600 MG 600 MG glipiZIDE 5 glipiZIDE 5 No 1{table BID glipiZIDE MG MG t} 5 MG One Touch One Touch No QD One Touch test strips test strips test test strips test strips strips test strips Ferrous Ferrous No 1{table QD Ferrous Sulfate 325 Sulfate 325 t} Sulfate (65 Fe) MG (65 Fe) MG 325 (65 Fe) MG Carvedilol Carvedilol No Carvedilol 25 MG 25 MG 25 MG Contour Contour No Contour Test - Test - Test - Acetaminoph Acetaminoph No 2{table Acetaminop en-Codeine en-Codeine t_as_ne hen-Codein 300-30 MG 300-30 MG eded} e 300-30 MG diazePAM 2 diazePAM 2 No TID diazePAM 2 mg mg mg Sertraline Sertraline No Sertraline HCl 25 MG HCl 25 MG HCl 25 MG glipiZIDE 5 glipiZIDE 5 No 1{table QD glipiZIDE MG MG t} 5 MG One Touch One Touch No QD One Touch test strips test strips test test strips test strips strips test strips Aspirin 81 Aspirin 81 No 1{table QD Aspirin 81 MG MG t} MG metFORMIN metFORMIN No 1{table TID metFORMIN HCl 500 MG HCl 500 MG t_with_ HCl 500 MG a_meal} hydrALAZINE hydrALAZINE No hydrALAZIN HCl 25 MG HCl 25 MG E HCl 25 MG amLODIPine amLODIPine No amLODIPine Besylate 10 Besylate 10 Besylate MG MG 10 MG Sodium Sodium No BID Sodium Chloride 1 Chloride 1 Chloride 1 GM GM GM glipiZIDE 5 glipiZIDE 5 No 1{table QD glipiZIDE MG MG t_with_ 5 MG food} Ferrous Ferrous No 1{table QD Ferrous Sulfate 325 Sulfate 325 t} Sulfate (65 Fe) MG (65 Fe) MG 325 (65 Fe) MG hydrALAZINE hydrALAZINE No 1{table hydrALAZIN HCl 25 MG HCl 25 MG t} E HCl 25 MG One Touch One Touch No TID One Touch test strips test strips test test strips test strips strips test strips Flonase 50 Flonase 50 No 2{spray QD Flonase 50 MCG/ACT MCG/ACT _in_eac MCG/ACT h_nostr il} Coreg 25 MG Coreg 25 MG No 1{table Coreg 25 t} MG Lancets - Lancets - No Lancets - Gabapentin Gabapentin No 1{capsu TID Gabapentin 300 MG 300 MG le} 300 MG Carvedilol Carvedilol No Carvedilol 25 MG 25 MG 25 MG Olmesartan Olmesartan No 1{table Olmesartan Medoxomil Medoxomil t} Medoxomil 20 MG 20 MG 20 MG amLODIPine amLODIPine No 1{table QD amLODIPine Besylate 10 Besylate 10 t} Besylate MG MG 10 MG Doxazosin Doxazosin No Doxazosin Mesylate 2 Mesylate 2 Mesylate 2 MG MG MG One Touch One Touch No QD One Touch test strips test strips test test strips test strips strips test strips Aspirin 81 Aspirin 81 No 1{table QD Aspirin 81 MG MG t} MG metFORMIN metFORMIN No 1{table TID metFORMIN HCl 500 MG HCl 500 MG t_with_ HCl 500 MG a_meal} hydrALAZINE hydrALAZINE No hydrALAZIN HCl 25 MG HCl 25 MG E HCl 25 MG amLODIPine amLODIPine No amLODIPine Besylate 10 Besylate 10 Besylate MG MG 10 MG Sodium Sodium No BID Sodium Chloride 1 Chloride 1 Chloride 1 GM GM GM glipiZIDE 5 glipiZIDE 5 No 1{table QD glipiZIDE MG MG t_with_ 5 MG food} Ferrous Ferrous No 1{table QD Ferrous Sulfate 325 Sulfate 325 t} Sulfate (65 Fe) MG (65 Fe) MG 325 (65 Fe) MG hydrALAZINE hydrALAZINE No 1{table hydrALAZIN HCl 25 MG HCl 25 MG t} E HCl 25 MG One Touch One Touch No TID One Touch test strips test strips test test strips test strips strips test strips Flonase 50 Flonase 50 No 2{spray QD Flonase 50 MCG/ACT MCG/ACT _in_eac MCG/ACT h_nostr il} Coreg 25 MG Coreg 25 MG No 1{table Coreg 25 t} MG Lancets - Lancets - No Lancets - Gabapentin Gabapentin No 1{capsu TID Gabapentin 300 MG 300 MG le} 300 MG Carvedilol Carvedilol No Carvedilol 25 MG 25 MG 25 MG Olmesartan Olmesartan No 1{table Olmesartan Medoxomil Medoxomil t} Medoxomil 20 MG 20 MG 20 MG amLODIPine amLODIPine No 1{table QD amLODIPine Besylate 10 Besylate 10 t} Besylate MG MG 10 MG Doxazosin Doxazosin No Doxazosin Mesylate 2 Mesylate 2 Mesylate 2 MG MG MG One Touch One Touch No QD One Touch test strips test strips test test strips test strips strips test strips Aspirin 81 Aspirin 81 No 1{table QD Aspirin 81 MG MG t} MG metFORMIN metFORMIN No 1{table TID metFORMIN HCl 500 MG HCl 500 MG t_with_ HCl 500 MG a_meal} hydrALAZINE hydrALAZINE No hydrALAZIN HCl 25 MG HCl 25 MG E HCl 25 MG amLODIPine amLODIPine No amLODIPine Besylate 10 Besylate 10 Besylate MG MG 10 MG Sodium Sodium No BID Sodium Chloride 1 Chloride 1 Chloride 1 GM GM GM glipiZIDE 5 glipiZIDE 5 No 1{table QD glipiZIDE MG MG t_with_ 5 MG food} Ferrous Ferrous No 1{table QD Ferrous Sulfate 325 Sulfate 325 t} Sulfate (65 Fe) MG (65 Fe) MG 325 (65 Fe) MG hydrALAZINE hydrALAZINE No 1{table hydrALAZIN HCl 25 MG HCl 25 MG t} E HCl 25 MG One Touch One Touch No TID One Touch test strips test strips test test strips test strips strips test strips Flonase 50 Flonase 50 No 2{spray QD Flonase 50 MCG/ACT MCG/ACT _in_eac MCG/ACT h_nostr il} Coreg 25 MG Coreg 25 MG No 1{table Coreg 25 t} MG Lancets - Lancets - No Lancets - Gabapentin Gabapentin No 1{capsu TID Gabapentin 300 MG 300 MG le} 300 MG Carvedilol Carvedilol No Carvedilol 25 MG 25 MG 25 MG Olmesartan Olmesartan No 1{table Olmesartan Medoxomil Medoxomil t} Medoxomil 20 MG 20 MG 20 MG amLODIPine amLODIPine No 1{table QD amLODIPine Besylate 10 Besylate 10 t} Besylate MG MG 10 MG Doxazosin Doxazosin No Doxazosin Mesylate 2 Mesylate 2 Mesylate 2 MG MG MG One Touch One Touch No QD One Touch test strips test strips test test strips test strips strips test strips Aspirin 81 Aspirin 81 No 1{table QD Aspirin 81 MG MG t} MG metFORMIN metFORMIN No 1{table TID metFORMIN HCl 500 MG HCl 500 MG t_with_ HCl 500 MG a_meal} hydrALAZINE hydrALAZINE No hydrALAZIN HCl 25 MG HCl 25 MG E HCl 25 MG amLODIPine amLODIPine No amLODIPine Besylate 10 Besylate 10 Besylate MG MG 10 MG Sodium Sodium No BID Sodium Chloride 1 Chloride 1 Chloride 1 GM GM GM glipiZIDE 5 glipiZIDE 5 No 1{table QD glipiZIDE MG MG t_with_ 5 MG food} Ferrous Ferrous No 1{table QD Ferrous Sulfate 325 Sulfate 325 t} Sulfate (65 Fe) MG (65 Fe) MG 325 (65 Fe) MG hydrALAZINE hydrALAZINE No 1{table hydrALAZIN HCl 25 MG HCl 25 MG t} E HCl 25 MG One Touch One Touch No TID One Touch test strips test strips test test strips test strips strips test strips Flonase 50 Flonase 50 No 2{spray QD Flonase 50 MCG/ACT MCG/ACT _in_eac MCG/ACT h_nostr il} Coreg 25 MG Coreg 25 MG No 1{table Coreg 25 t} MG Lancets - Lancets - No Lancets - Gabapentin Gabapentin No 1{capsu TID Gabapentin 300 MG 300 MG le} 300 MG Carvedilol Carvedilol No Carvedilol 25 MG 25 MG 25 MG Olmesartan Olmesartan No 1{table Olmesartan Medoxomil Medoxomil t} Medoxomil 20 MG 20 MG 20 MG amLODIPine amLODIPine No 1{table QD amLODIPine Besylate 10 Besylate 10 t} Besylate MG MG 10 MG Doxazosin Doxazosin No Doxazosin Mesylate 2 Mesylate 2 Mesylate 2 MG MG MG One Touch One Touch No QD One Touch test strips test strips test test strips test strips strips test strips Aspirin 81 Aspirin 81 No 1{table QD Aspirin 81 MG MG t} MG metFORMIN metFORMIN No 1{table TID metFORMIN HCl 500 MG HCl 500 MG t_with_ HCl 500 MG a_meal} hydrALAZINE hydrALAZINE No hydrALAZIN HCl 25 MG HCl 25 MG E HCl 25 MG amLODIPine amLODIPine No amLODIPine Besylate 10 Besylate 10 Besylate MG MG 10 MG Sodium Sodium No BID Sodium Chloride 1 Chloride 1 Chloride 1 GM GM GM glipiZIDE 5 glipiZIDE 5 No 1{table QD glipiZIDE MG MG t_with_ 5 MG food} Ferrous Ferrous No 1{table QD Ferrous Sulfate 325 Sulfate 325 t} Sulfate (65 Fe) MG (65 Fe) MG 325 (65 Fe) MG hydrALAZINE hydrALAZINE No 1{table hydrALAZIN HCl 25 MG HCl 25 MG t} E HCl 25 MG One Touch One Touch No TID One Touch test strips test strips test test strips test strips strips test strips Flonase 50 Flonase 50 No 2{spray QD Flonase 50 MCG/ACT MCG/ACT _in_eac MCG/ACT h_nostr il} Coreg 25 MG Coreg 25 MG No 1{table Coreg 25 t} MG Lancets - Lancets - No Lancets - Gabapentin Gabapentin No 1{capsu TID Gabapentin 300 MG 300 MG le} 300 MG Carvedilol Carvedilol No Carvedilol 25 MG 25 MG 25 MG Olmesartan Olmesartan No 1{table Olmesartan Medoxomil Medoxomil t} Medoxomil 20 MG 20 MG 20 MG amLODIPine amLODIPine No 1{table QD amLODIPine Besylate 10 Besylate 10 t} Besylate MG MG 10 MG Doxazosin Doxazosin No Doxazosin Mesylate 2 Mesylate 2 Mesylate 2 MG MG MG One Touch One Touch No QD One Touch test strips test strips test test strips test strips strips test strips Aspirin 81 Aspirin 81 No 1{table QD Aspirin 81 MG MG t} MG metFORMIN metFORMIN No 1{table TID metFORMIN HCl 500 MG HCl 500 MG t_with_ HCl 500 MG a_meal} hydrALAZINE hydrALAZINE No hydrALAZIN HCl 25 MG HCl 25 MG E HCl 25 MG amLODIPine amLODIPine No amLODIPine Besylate 10 Besylate 10 Besylate MG MG 10 MG Sodium Sodium No BID Sodium Chloride 1 Chloride 1 Chloride 1 GM GM GM glipiZIDE 5 glipiZIDE 5 No 1{table QD glipiZIDE MG MG t_with_ 5 MG food} Ferrous Ferrous No 1{table QD Ferrous Sulfate 325 Sulfate 325 t} Sulfate (65 Fe) MG (65 Fe) MG 325 (65 Fe) MG hydrALAZINE hydrALAZINE No 1{table hydrALAZIN HCl 25 MG HCl 25 MG t} E HCl 25 MG One Touch One Touch No TID One Touch test strips test strips test test strips test strips strips test strips Flonase 50 Flonase 50 No 2{spray QD Flonase 50 MCG/ACT MCG/ACT _in_eac MCG/ACT h_nostr il} Coreg 25 MG Coreg 25 MG No 1{table Coreg 25 t} MG Lancets - Lancets - No Lancets - Gabapentin Gabapentin No 1{capsu TID Gabapentin 300 MG 300 MG le} 300 MG Carvedilol Carvedilol No Carvedilol 25 MG 25 MG 25 MG Olmesartan Olmesartan No 1{table Olmesartan Medoxomil Medoxomil t} Medoxomil 20 MG 20 MG 20 MG amLODIPine amLODIPine No 1{table QD amLODIPine Besylate 10 Besylate 10 t} Besylate MG MG 10 MG Doxazosin Doxazosin No Doxazosin Mesylate 2 Mesylate 2 Mesylate 2 MG MG MG One Touch One Touch No QD One Touch test strips test strips test test strips test strips strips test strips Aspirin 81 Aspirin 81 No 1{table QD Aspirin 81 MG MG t} MG metFORMIN metFORMIN No 1{table TID metFORMIN HCl 500 MG HCl 500 MG t_with_ HCl 500 MG a_meal} hydrALAZINE hydrALAZINE No hydrALAZIN HCl 25 MG HCl 25 MG E HCl 25 MG amLODIPine amLODIPine No amLODIPine Besylate 10 Besylate 10 Besylate MG MG 10 MG Sodium Sodium No BID Sodium Chloride 1 Chloride 1 Chloride 1 GM GM GM glipiZIDE 5 glipiZIDE 5 No 1{table QD glipiZIDE MG MG t_with_ 5 MG food} Ferrous Ferrous No 1{table QD Ferrous Sulfate 325 Sulfate 325 t} Sulfate (65 Fe) MG (65 Fe) MG 325 (65 Fe) MG hydrALAZINE hydrALAZINE No 1{table hydrALAZIN HCl 25 MG HCl 25 MG t} E HCl 25 MG One Touch One Touch No TID One Touch test strips test strips test test strips test strips strips test strips Flonase 50 Flonase 50 No 2{spray QD Flonase 50 MCG/ACT MCG/ACT _in_eac MCG/ACT h_nostr il} Coreg 25 MG Coreg 25 MG No 1{table Coreg 25 t} MG Lancets - Lancets - No Lancets - Gabapentin Gabapentin No 1{capsu TID Gabapentin 300 MG 300 MG le} 300 MG Carvedilol Carvedilol No Carvedilol 25 MG 25 MG 25 MG Olmesartan Olmesartan No 1{table Olmesartan Medoxomil Medoxomil t} Medoxomil 20 MG 20 MG 20 MG amLODIPine amLODIPine No 1{table QD amLODIPine Besylate 10 Besylate 10 t} Besylate MG MG 10 MG Doxazosin Doxazosin No Doxazosin Mesylate 2 Mesylate 2 Mesylate 2 MG MG MG Cetirizine Cetirizine No 1{table Cetirizine HCl 10 MG HCl 10 MG t} HCl 10 MG Flonase 50 Flonase 50 No 2{spray QD Flonase 50 MCG/ACT MCG/ACT _in_eac MCG/ACT h_nostr il} amLODIPine amLODIPine No amLODIPine Besylate 10 Besylate 10 Besylate MG MG 10 MG Coreg 25 MG Coreg 25 MG No 1{table Coreg 25 t} MG Doxazosin Doxazosin No Doxazosin Mesylate 2 Mesylate 2 Mesylate 2 MG MG MG Lancets - Lancets - No Lancets - One Touch One Touch No QD One Touch test strips test strips test test strips test strips strips test strips Aspirin 81 Aspirin 81 No 1{table QD Aspirin 81 MG MG t} MG Sodium Sodium No BID Sodium Chloride 1 Chloride 1 Chloride 1 GM GM GM Doxazosin Doxazosin No QD Doxazosin Mesylate 2 Mesylate 2 Mesylate 2 MG MG MG clonazePAM clonazePAM No 1{table QD clonazePAM 0.5 MG 0.5 MG t_at_be 0.5 MG dtime} Olmesartan Olmesartan No 1{table Olmesartan Medoxomil Medoxomil t} Medoxomil 20 MG 20 MG 20 MG Ferrous Ferrous No 1{table QD Ferrous Sulfate 325 Sulfate 325 t} Sulfate (65 Fe) MG (65 Fe) MG 325 (65 Fe) MG Carvedilol Carvedilol No Carvedilol 25 MG 25 MG 25 MG hydrALAZINE hydrALAZINE No 1{table hydrALAZIN HCl 25 MG HCl 25 MG t} E HCl 25 MG glipiZIDE 5 glipiZIDE 5 No 1{table BID glipiZIDE MG MG t} 5 MG amLODIPine amLODIPine No 1{table QD amLODIPine Besylate 10 Besylate 10 t} Besylate MG MG 10 MG One Touch One Touch No TID One Touch test strips test strips test test strips test strips strips test strips Doxazosin Doxazosin No Doxazosin Mesylate 2 Mesylate 2 Mesylate 2 MG MG MG Cetirizine Cetirizine No 1{table Cetirizine HCl 10 MG HCl 10 MG t} HCl 10 MG glipiZIDE 5 glipiZIDE 5 No glipiZIDE MG MG 5 MG clonazePAM clonazePAM No 1{table QD clonazePAM 0.5 MG 0.5 MG t_at_be 0.5 MG dtime} amLODIPine amLODIPine No amLODIPine Besylate 10 Besylate 10 Besylate MG MG 10 MG Olmesartan Olmesartan No 1{table Olmesartan Medoxomil Medoxomil t} Medoxomil 20 MG 20 MG 20 MG Aspirin 81 Aspirin 81 No 1{table QD Aspirin 81 MG MG t} MG Lancets - Lancets - No Lancets - One Touch One Touch No QD One Touch test strips test strips test test strips test strips strips test strips hydrALAZINE hydrALAZINE No 1{table hydrALAZIN HCl 25 MG HCl 25 MG t} E HCl 25 MG Doxazosin Doxazosin No QD Doxazosin Mesylate 2 Mesylate 2 Mesylate 2 MG MG MG amLODIPine amLODIPine No 1{table QD amLODIPine Besylate 10 Besylate 10 t} Besylate MG MG 10 MG One Touch One Touch No TID One Touch test strips test strips test test strips test strips strips test strips Coreg 25 MG Coreg 25 MG No 1{table Coreg 25 t} MG Ferrous Ferrous No 1{table QD Ferrous Sulfate 325 Sulfate 325 t} Sulfate (65 Fe) MG (65 Fe) MG 325 (65 Fe) MG Sodium Sodium No BID Sodium Chloride 1 Chloride 1 Chloride 1 GM GM GM Carvedilol Carvedilol No Carvedilol 25 MG 25 MG 25 MG Flonase 50 Flonase 50 No 2{spray QD Flonase 50 MCG/ACT MCG/ACT _in_eac MCG/ACT h_nostr il} Cetirizine Cetirizine No 1{table Cetirizine HCl 10 MG HCl 10 MG t} HCl 10 MG Flonase 50 Flonase 50 No 2{spray QD Flonase 50 MCG/ACT MCG/ACT _in_eac MCG/ACT h_nostr il} amLODIPine amLODIPine No amLODIPine Besylate 10 Besylate 10 Besylate MG MG 10 MG Coreg 25 MG Coreg 25 MG No 1{table Coreg 25 t} MG Doxazosin Doxazosin No Doxazosin Mesylate 2 Mesylate 2 Mesylate 2 MG MG MG Lancets - Lancets - No Lancets - glipiZIDE 5 glipiZIDE 5 No glipiZIDE MG MG 5 MG One Touch One Touch No QD One Touch test strips test strips test test strips test strips strips test strips Aspirin 81 Aspirin 81 No 1{table QD Aspirin 81 MG MG t} MG Sodium Sodium No BID Sodium Chloride 1 Chloride 1 Chloride 1 GM GM GM Doxazosin Doxazosin No QD Doxazosin Mesylate 2 Mesylate 2 Mesylate 2 MG MG MG clonazePAM clonazePAM No 1{table QD clonazePAM 0.5 MG 0.5 MG t_at_be 0.5 MG dtime} Olmesartan Olmesartan No 1{table Olmesartan Medoxomil Medoxomil t} Medoxomil 20 MG 20 MG 20 MG Ferrous Ferrous No 1{table QD Ferrous Sulfate 325 Sulfate 325 t} Sulfate (65 Fe) MG (65 Fe) MG 325 (65 Fe) MG Carvedilol Carvedilol No Carvedilol 25 MG 25 MG 25 MG hydrALAZINE hydrALAZINE No 1{table hydrALAZIN HCl 25 MG HCl 25 MG t} E HCl 25 MG Gabapentin Gabapentin No 1{table TID Gabapentin 600 MG 600 MG t} 600 MG amLODIPine amLODIPine No 1{table QD amLODIPine Besylate 10 Besylate 10 t} Besylate MG MG 10 MG One Touch One Touch No TID One Touch test strips test strips test test strips test strips strips test strips Cetirizine Cetirizine No 1{table Cetirizine HCl 10 MG HCl 10 MG t} HCl 10 MG Flonase 50 Flonase 50 No 2{spray QD Flonase 50 MCG/ACT MCG/ACT _in_eac MCG/ACT h_nostr il} amLODIPine amLODIPine No amLODIPine Besylate 10 Besylate 10 Besylate MG MG 10 MG Coreg 25 MG Coreg 25 MG No 1{table Coreg 25 t} MG Doxazosin Doxazosin No Doxazosin Mesylate 2 Mesylate 2 Mesylate 2 MG MG MG Immunizations Ordered Filled Immunization Date Status Comments Sourc e Immunization Name Name FLUZONE HIGH DOSE FLUZONE HIGH DOSE 2021-11-13 Completed [facility] OVER 65 OVER 65 15:51:00 [facility] FLUZONE HIGH DOSE FLUZONE HIGH DOSE 2021-11-13 Completed [facility] OVER 65 OVER 65 15:51:00 - [facility] H[facility] DOSE FLUZONE HIGH DOSE 2021-11-13 Completed [facility] OVER 65 OVER 65 15:51:00 - [facility] FLUZONE HIGH DOSE FLUZONE HIGH DOSE 2021-11-13 Completed [facility] OVER 65 OVER 65 15:51:00 - [facility] FLUZONE HIGH DOSE FLUZONE HIGH DOSE 2021-11-13 Completed [facility] OVER 65 OVER 65 15:51:00 - [facility] FLUZONE HIGH DOSE FLUZONE HIGH DOSE 2021-11-13 Completed [facility] OVER 65 OVER 65 15:51:00 - [facility] FLUZONE HIGH DOSE FLUZONE HIGH DOSE 2021-11-13 Completed [facility] OVER 65 OVER 65 15:51:00 - [facility] FLUZONE HIGH DOSE FLUZONE HIGH DOSE 2021-11-13 Completed [facility] OVER 65 OVER 65 15:51:00 - [facility] FLUZONE HIGH DOSE FLUZONE HIGH DOSE 2021-11-13 Completed [facility] OVER 65 OVER 65 15:51:00 - [facility] FLUZONE HIGH DOSE FLUZONE HIGH DOSE 2021-11-13 Completed [facility] OVER 65 OVER 65 15:51:00 - [facility] FLUZONE HIGH DOSE FLUZONE HIGH DOSE 2021-11-13 Completed [facility] OVER 65 OVER 65 15:51:00 - [facility] FLUZONE HIGH DOSE FLUZONE HIGH DOSE 2021-11-13 Completed [facility] OVER 65 OVER 65 15:51:00 - [facility] FLUZONE HIGH DOSE FLUZONE HIGH DOSE 2021-11-13 Completed [facility] OVER 65 OVER 65 15:51:00 - [facility] FLUZONE HIGH DOSE FLUZONE HIGH DOSE 2021-11-13 Completed [facility] OVER 65 OVER 65 15:51:00 - [facility] FLUZONE HIGH DOSE FLUZONE HIGH DOSE 2021-11-13 Completed [facility] OVER 65 OVER 65 15:51:00 - [facility] FLUZONE HIGH DOSE FLUZONE HIGH DOSE 2021-11-13 Completed [facility] OVER 65 OVER 65 15:51:00 - [facility] FLUZONE HIGH DOSE FLUZONE HIGH DOSE 2021-11-13 Completed [facility] OVER 65 OVER 65 15:51:00 - [facility] FLUZONE HIGH DOSE FLUZONE HIGH DOSE 2021-11-13 Completed [facility] OVER 65 OVER 65 15:51:00 - [facility] FLUZONE HIGH DOSE FLUZONE HIGH DOSE 2021-11-13 Completed [facility] OVER 65 OVER 65 15:51:00 - [facility] FLUZONE HIGH DOSE FLUZONE HIGH DOSE 2021-11-13 Completed [facility] OVER 65 OVER 65 15:51:00 - [facility] FLUZONE HIGH DOSE FLUZONE HIGH DOSE 2021-11-13 Completed [facility] OVER 65 OVER 65 15:51:00 - [facility] FLUZONE HIGH DOSE FLUZONE HIGH DOSE 2021-11-13 Completed [facility] OVER 65 OVER 65 15:51:00 - [facility] FLUZONE HIGH DOSE FLUZONE HIGH DOSE 2021-11-13 Completed [facility] OVER 65 OVER 65 15:51:00 - [facility] FLUZONE HIGH DOSE FLUZONE HIGH DOSE 2021-11-13 Completed [facility] OVER 65 OVER 65 15:51:00 - [facility] FLUZONE HIGH DOSE FLUZONE HIGH DOSE 2021-11-13 Completed [facility] OVER 65 OVER 65 15:51:00 - [facility] FLUZONE HIGH DOSE FLUZONE HIGH DOSE 2021-11-13 Completed [facility] OVER 65 OVER 65 15:51:00 - [facility] FLUZONE HIGH DOSE FLUZONE HIGH DOSE 2021-11-13 Completed [facility] OVER 65 OVER 65 15:51:00 - [facility] FLUZONE HIGH DOSE FLUZONE HIGH DOSE 2021-11-13 Completed [facility] OVER 65 OVER 65 15:51:00 - [facility] FLUZONE HIGH DOSE FLUZONE HIGH DOSE 2019-08-16 Completed [facility] OVER 65 OVER 65 09:08:00 - [facility] FLUZONE HIGH DOSE FLUZONE HIGH DOSE 2019-08-16 Completed [facility] OVER 65 OVER 65 09:08:00 - [facility] FLUZONE HIGH DOSE FLUZONE HIGH DOSE 2019-08-16 Completed [facility] OVER 65 OVER 65 09:08:00 - [facility] FLUZONE HIGH DOSE FLUZONE HIGH DOSE 2019-08-16 Completed [facility] OVER 65 OVER 65 09:08:00 - [facility] FLUZONE HIGH DOSE FLUZONE HIGH DOSE 2019-08-16 Completed [facility] OVER 65 OVER 65 09:08:00 - [facility] FLUZONE HIGH DOSE FLUZONE HIGH DOSE 2019-08-16 Completed [facility] OVER 65 OVER 65 09:08:00 - [facility] FLUZONE HIGH DOSE FLUZONE HIGH DOSE 2019-08-16 Completed [facility] OVER 65 OVER 65 09:08:00 - [facility] FLUZONE HIGH DOSE FLUZONE HIGH DOSE 2019-08-16 Completed [facility] OVER 65 OVER 65 09:08:00 - [facility] FLUZONE HIGH DOSE FLUZONE HIGH DOSE 2019-08-16 Completed [facility] OVER 65 OVER 65 09:08:00 - [facility] FLUZONE HIGH DOSE FLUZONE HIGH DOSE 2019-08-16 Completed [facility] OVER 65 OVER 65 09:08:00 - [facility] FLUZONE HIGH DOSE FLUZONE HIGH DOSE 2019-08-16 Completed [facility] OVER 65 OVER 65 09:08:00 - [facility] FLUZONE HIGH DOSE FLUZONE HIGH DOSE 2019-08-16 Completed [facility] OVER 65 OVER 65 09:08:00 - [facility] FLUZONE HIGH DOSE FLUZONE HIGH DOSE 2019-08-16 Completed [facility] OVER 65 OVER 65 09:08:00 - [facility] FLUZONE HIGH DOSE FLUZONE HIGH DOSE 2019-08-16 Completed [facility] OVER 65 OVER 65 09:08:00 - [facility] FLUZONE HIGH DOSE FLUZONE HIGH DOSE 2019-08-16 Completed [facility] OVER 65 OVER 65 09:08:00 - [facility] FLUZONE HIGH DOSE FLUZONE HIGH DOSE 2019-08-16 Completed [facility] OVER 65 OVER 65 09:08:00 [facility] FLUZONE HIGH DOSE FLUZONE HIGH DOSE 2019-08-16 Completed [facility] OVER 65 OVER 65 09:08:00 - [facility] FLUZONE HIGH DOSE FLUZONE HIGH DOSE 2019-08-16 Completed [facility] OVER 65 OVER 65 09:08:00 - [facility] FLUZONE HIGH DOSE FLUZONE HIGH DOSE 2019-08-16 Completed [facility] OVER 65 OVER 65 09:08:00 - [facility] FLUZONE HIGH DOSE FLUZONE HIGH DOSE 2019-08-16 Completed [facility] OVER 65 OVER 65 09:08:00 - [facility] FLUZONE HIGH DOSE FLUZONE HIGH DOSE 2019-08-16 Completed [facility] OVER 65 OVER 65 09:08:00 - [facility] FLUZONE HIGH DOSE FLUZONE HIGH DOSE 2019-08-16 Completed [facility] OVER 65 OVER 65 09:08:00 - [facility] FLUZONE HIGH DOSE FLUZONE HIGH DOSE 2019-08-16 Completed [facility] OVER 65 OVER 65 09:08:00 - [facility] FLUZONE HIGH DOSE FLUZONE HIGH DOSE 2019-08-16 Completed [facility] OVER 65 OVER 65 09:08:00 - [facility] FLUZONE HIGH DOSE FLUZONE HIGH DOSE 2019-08-16 Completed [facility] OVER 65 OVER 65 09:08:00 - [facility] FLUZONE HIGH DOSE FLUZONE HIGH DOSE 2019-08-16 Completed [facility] OVER 65 OVER 65 09:08:00 - [facility] FLUZONE HIGH DOSE FLUZONE HIGH DOSE 2019-08-16 Completed [facility] OVER 65 OVER 65 09:08:00 - [facility] FLUZONE HIGH DOSE FLUZONE HIGH DOSE 2019-08-16 Completed [facility] OVER 65 OVER 65 09:08:00 - [facility] FLUZONE HIGH DOSE FLUZONE HIGH DOSE 2019-08-16 Completed [facility] OVER 65 OVER 65 09:08:00 - [facility] FLUZONE HIGH DOSE FLUZONE HIGH DOSE 2019-08-16 Completed [facility] OVER 65 OVER 65 09:08:00 - [facility] FLUZONE HIGH DOSE FLUZONE HIGH DOSE 2019-08-16 Completed [facility] OVER 65 OVER 65 09:08:00 - [facility] FLUZONE HIGH DOSE FLUZONE HIGH DOSE 2019-08-16 Completed [facility] OVER 65 OVER 65 00:00:00 - [facility] Pneumovax (PPSV23) Pneumovax (PPSV23) 2018-12-01 Completed [facility] 10:31:00 - [facility] Pneumovax (PPSV23) Pneumovax (PPSV23) 2018-12-01 Completed [facility] 10:31:00 - [facility] Pneumovax (PPSV23) Pneumovax (PPSV23) 2018-12-01 Completed [facility] 10:31:00 - [facility] Pneumovax (PPSV23) Pneumovax (PPSV23) 2018-12-01 Completed [facility] 10:31:00 - [facility] Pneumovax (PPSV23) Pneumovax (PPSV23) 2018-12-01 Completed [facility] 10:31:00 - [facility] Pneumovax (PPSV23) Pneumovax (PPSV23) 2018-12-01 [facility] Pneumovax (PPSV23) Pneumovax (PPSV23) 2018-12-01 [facility] Pneumovax (PPSV23) Pneumovax (PPSV23) 2018-12-01 [facility] Pneumovax (PPSV23) Pneumovax (PPSV23) 2018-12-01 [facility] Pneumovax (PPSV23) Pneumovax (PPSV23) 2018-12-01 [facility] Pneumovax (PPSV23) Pneumovax (PPSV23) 2018-12-01 [facility]:00 [facility] Pneumovax (PPSV23) Pneumovax (PPSV23) 2018-12-01 [facility]pleted [facility] 10:31:00 [facility] Pneumovax (PPSV23) Pneumovax (PPSV23) 2018-12-01 [facility]pleted [facility] 10:31:00 [facility] Pneumovax (PPSV23) Pneumovax (PPSV23) 2018-12-01 [facility]pleted [facility] Pneumovax (PPSV23) Pneumovax (PPSV23) 2018-12-01 [facility]pleted [facility] Pneumovax (PPSV23) Pneumovax (PPSV23) 2018-12-01 [facility]pleted [facility] Pneumovax (PPSV23) Pneumovax (PPSV23) 2018-12-01 [facility]pleted [facility] Pneumovax (PPSV23) Pneumovax (PPSV23) 2018-12-01 [facility]pleted [facility] Pneumovax (PPSV23) Pneumovax (PPSV23) 2018-12-01 [facility]pleted [facility] Pneumovax (PPSV23) Pneumovax (PPSV23) 2018-12-01 [facility]pleted [facility] Pneumovax (PPSV23) Pneumovax (PPSV23) 2018-12-01 [facility]pleted [facility] Pneumovax (PPSV23) Pneumovax (PPSV23) 2018-12-01 [facility]pleted [facility] Pneumovax (PPSV23) Pneumovax (PPSV23) 2018-12-01 [facility]pleted [facility] Pneumovax (PPSV23) Pneumovax (PPSV23) 2018-12-01 [facility]pleted [facility] Pneumovax (PPSV23) Pneumovax (PPSV23) 2018-12-01 [facility] Pneumovax (PPSV23) Pneumovax (PPSV23) 2018-12-01 [facility]pleted [facility] Pneumovax (PPSV23) Pneumovax (PPSV23) 2018-12-01 [facility] Pneumovax (PPSV23) Pneumovax (PPSV23) 2018-12-01 [facility] Pneumovax (PPSV23) Pneumovax (PPSV23) 2018-12-01 [facility] Pneumovax (PPSV23) Pneumovax (PPSV23) 2018-12-01 [facility]pleted [facility] Pneumovax (PPSV23) Pneumovax (PPSV23) 2018-12-01 [facility]pleted [facility] Pneumovax Pneumovax 2018-12-01 [facility] FLUZONE HIGH DOSE FLUZONE HIGH DOSE 2018-08-28 Completed [facility] OVER 65 OVER 65 09:13:00 - [facility] FLUZONE HIGH DOSE FLUZONE HIGH DOSE 2018-08-28 [facility]pleted [facility] OVER 65 OVER 65 09:13:00 - [facility] FLUZONE HIGH DOSE FLUZONE HIGH DOSE 2018-08-28 [facility]pleted [facility] OVER 65 OVER 65 09:13:00 - [facility] FLUZONE HIGH DOSE FLUZONE HIGH DOSE 2018-08-28 [facility]pleted [facility] OVER 65 OVER 65 09:13:00 - [facility] FLUZONE HIGH DOSE FLUZONE HIGH DOSE 2018-08-28 [facility]pleted [facility] OVER 65 OVER 65 09:13:00 - [facility] FLUZONE HIGH DOSE FLUZONE HIGH DOSE 2018-08-28 [facility]pleted [facility] OVER 65 OVER 65 09:13:00 - [facility] FLUZONE HIGH DOSE FLUZONE HIGH DOSE 2018-08-28 [facility]pleted [facility] OVER 65 OVER 65 09:13:00 - [facility] FLUZONE HIGH DOSE FLUZONE HIGH DOSE 2018-08-28 [facility]pleted [facility] OVER 65 OVER 65 09:13:00 - [facility] FLUZONE HIGH DOSE FLUZONE HIGH DOSE 2018-08-28 [facility]pleted [facility] OVER 65 OVER 65 09:13:00 - [facility] FLUZONE HIGH DOSE FLUZONE HIGH DOSE 2018-08-28 [facility]pleted [facility] OVER 65 OVER 65 09:13:00 - [facility] FLUZONE HIGH DOSE FLUZONE HIGH DOSE 2018-08-28 [facility]pleted [facility] OVER 65 OVER 65 09:13:00 [facility] FLUZONE HIGH DOSE FLUZONE HIGH DOSE 2018-08-28 [facility]pleted [facility] OVER 65 OVER 65 09:13:00 [facility] FLUZONE HIGH DOSE FLUZONE HIGH DOSE 2018-08-28 [facility]pleted [facility] OVER 65 OVER 65 09:13:00 [facility] FLUZONE HIGH DOSE FLUZONE HIGH DOSE 2018-08-28 Completed [facility] OVER 65 OVER 65 09:13:00 [facility] FLUZONE HIGH DOSE FLUZONE HIGH DOSE 2018-08-28 Completed [facility] OVER 65 OVER 65 09:13:00 [facility] FLUZONE HIGH DOSE FLUZONE HIGH DOSE 2018-08-28 [facility]pleted [facility] OVER 65 OVER 65 09:13:00 [facility] FLUZONE HIGH DOSE FLUZONE HIGH DOSE 2018-08-28 [facility]pleted [facility] OVER 65 OVER 65 09:13:00 [facility] FLUZONE HIGH DOSE FLUZONE HIGH DOSE 2018-08-28 Completed [facility] OVER 65 OVER 65 09:13:00 - [facility] FLUZONE HIGH DOSE FLUZONE HIGH DOSE 2018-08-28 Completed [facility] OVER 65 OVER 65 09:13:00 - [facility] FLUZONE HIGH DOSE FLUZONE HIGH DOSE 2018-08-28 Completed [facility] OVER 65 OVER 65 09:13:00 [facility] FLUZONE HIGH DOSE FLUZONE HIGH DOSE 2018-08-28 Completed [facility] OVER 65 OVER 65 09:13:00 - [facility] FLUZONE HIGH DOSE FLUZONE HIGH DOSE 2018-08-28 Completed [facility] OVER 65 OVER 65 09:13:00 [facility] FLUZONE HIGH DOSE FLUZONE HIGH DOSE 2018-08-28 Completed [facility] OVER 65 OVER 65 09:13:00 [facility] FLUZONE HIGH DOSE FLUZONE HIGH DOSE 2018-08-28 Completed [facility] OVER 65 OVER 65 09:13:00 [facility] FLUZONE HIGH DOSE FLUZONE HIGH DOSE 2018-08-28 Completed [facility] OVER 65 OVER 65 09:13:00 [facility] FLUZONE HIGH DOSE FLUZONE HIGH DOSE 2018-08-28 Completed [facility] OVER 65 OVER 65 09:13:00 [facility] FLUZONE HIGH DOSE FLUZONE HIGH DOSE 2018-08-28 Completed [facility] OVER 65 OVER 65 09:13:00 - [facility] FLUZONE HIGH DOSE FLUZONE HIGH DOSE 2018-08-28 Completed [facility] OVER 65 OVER 65 09:13:00 - [facility] FLUZONE HIGH DOSE FLUZONE HIGH DOSE 2018-08-28 Completed [facility] OVER 65 OVER 65 09:13:00 - [facility] FLUZONE HIGH DOSE FLUZONE HIGH DOSE 2018-08-28 Completed [facility] OVER 65 OVER 65 09:13:00 [facility] FLUZONE HIGH DOSE FLUZONE HIGH DOSE 2018-08-28 Completed [facility] OVER 65 OVER 65 09:13:00 [facility] FluAD Quad SD FluAD Quad SD Unknown Completed [facility] Pneumovax (PPSV23) Pneumovax (PPSV23) Unknown Completed [facility] FLUZONE HIGH DOSE FLUZONE HIGH DOSE Unknown Completed [facility] OVER 65 OVER 65 - [facility] FLUZONE HIGH DOSE FLUZONE HIGH DOSE Unknown Completed [facility] OVER 65 OVER 65 - [facility] FLUZONE HIGH DOSE FLUZONE HIGH DOSE Unknown Completed [facility] OVER 65 OVER 65 - [facility] Vital Signs Vital Name Observation Time Observation Value Comments Source height 2022-09-12 08:40:00 59 [in_i] [facility] weight 2022-09-12 08:40:00 119.6 [lb_av] Common [facility] temperature 2022-09-12 08:40:00 97.2 [degF] [facility] bmi 2022-09-12 08:40:00 24.15 kg/m2 [facility] oximetry 2022-09-12 08:40:00 98 % [facility] respiratory rate 2022-09-12 08:40:00 16 /min Comm on [facility] blood pressure 2022-09-12 08:40:00 132 mm[Hg] [facility] blood pressure 2022-09-12 08:40:00 64 mm[Hg] [facility] - diastolic [facility] height 2022-05-28 11:40:00 59 [in_i] [facility] weight 2022-05-28 11:40:00 114.4 [lb_av] [facility] temperature 2022-05-28 11:40:00 95.5 [degF] [facility] bmi 2022-05-28 11:40:00 23.10 kg/m2 Common [facility] oximetry 2022-05-28 11:40:00 100 % [facility] respiratory rate 2022-05-28 11:40:00 18 /min Comm on [facility] blood pressure 2022-05-28 11:40:00 132 mm[Hg] [facility] blood pressure 2022-05-28 11:40:00 68 mm[Hg] Common [facility] height 2022-04-04 16:00:00 59 [in_i] Common [facility] weight 2022-04-04 16:00:00 114 [lb_av] [facility] temperature 2022-04-04 16:00:00 97.2 [degF] [facility] bmi 2022-04-04 16:00:00 23.02 kg/m2 [facility] 2022-04-04 16:00:00 100 % [facility] respiratory rate 2022-04-04 16:00:00 16 /min Comm on [facility] blood pressure 2022-04-04 16:00:00 103 mm[Hg] Common [facility] blood pressure 2022-04-04 16:00:00 51 mm[Hg] [facility] height 2022-03-19 14:00:00 59 [in_i] [facility] weight 2022-03-19 14:00:00 118 [lb_av] [facility] temperature 2022-03-19 14:00:00 97.3 [degF] [facility] bmi 2022-03-19 14:00:00 23.83 kg/m2 [facility] oximetry 2022-03-19 14:00:00 99 % [facility] respiratory rate 2022-03-19 14:00:00 16 /min Comm on [facility] blood pressure 2022-03-19 14:00:00 138 mm[Hg] Common [facility] blood pressure 2022-03-19 14:00:00 60 mm[Hg] [facility] height 2022-03-19 14:20:00 59 [in_i] [facility] weight 2022-03-19 14:20:00 118 [lb_av] [facility] temperature 2022-03-19 14:20:00 97.3 [degF] [facility] bmi 2022-03-19 14:20:00 23.83 kg/m2 [facility] oximetry 2022-03-19 14:20:00 99 % [facility] respiratory rate 2022-03-19 14:20:00 16 /min Comm on [facility] blood pressure 2022-03-19 14:20:00 138 mm[Hg] [facility] blood pressure 2022-03-19 14:20:00 60 mm[Hg] [facility] height 2021-11-13 14:40:00 59 [in_i] [facility] weight 2021-11-13 14:40:00 129.0 [lb_av] [facility] temperature 2021-11-13 14:40:00 97.2 [degF] Common [facility] bmi 2021-11-13 14:40:00 26.05 kg/m2 [facility] oximetry 2021-11-13 14:40:00 100 % [facility] respiratory rate 2021-11-13 14:40:00 15 /min Comm on [facility] blood pressure 2021-11-13 14:40:00 122 mm[Hg] Common [facility] blood pressure 2021-11-13 14:40:00 60 mm[Hg] [facility] diastolic [facility] height 2021-10-02 11:00:00 59 [in_i] [facility] weight 2021-10-02 11:00:00 130 [lb_av] [facility] bmi 2021-10-02 11:00:00 26.25 kg/m2 [facility] height 2021-07-03 11:40:00 59 [in_i] [facility] weight 2021-07-03 11:40:00 130 [lb_av] [facility] temperature 2021-07-03 11:40:00 97.2 [degF] [facility] bmi 2021-07-03 11:40:00 26.25 kg/m2 [facility] oximetry 2021-07-03 11:40:00 98 % [facility] blood pressure 2021-07-03 11:40:00 121 mm[Hg] [facility] systolic [facility] blood pressure 2021-07-03 11:40:00 60 mm[Hg] [facility] diastolic [facility] Procedures Procedure Date / Time Performed Performing Clinician [facility] Physical Therapy 2019-11-25 00:00:00 [facility] Plan of Care Planned Activity Planned Date Details Comments Source Future Scheduled 2023-09-07 COVID-19 VACCINE (#1) [facility] Test 09:08:36 [code = COVID-19 VACCINE (#1)] Future Scheduled 2023-09-07 Hepatitis C screening [facility] Test 09:08:36 (procedure) [code = 369617808] Future Scheduled 2023-09-07 SHINGLES VACCINES (1 [facility] Test 09:08:36 of 2) [code = SHINGLES VACCINES (1 of 2)] Future Scheduled 2023-09-07 65+ PNEUMOCOCCAL Methodi [facility] Test 09:08:36 VACCINE (2 - PCV) [code = 65+ PNEUMOCOCCAL VACCINE (2 - PCV)] Future Scheduled 2023-09-07 [facility] 09:08:36 [code = INFLUENZA VACCINE (#1)] Encounters Start End Encounter Admission Attending Care Care Encounter Source Date/Time Date/Time Type Type Clinicians Facility Department ID 2023-07-09 Outpatient Krause, STLMLC STLMLC [id number] Common 15:29:00 [facility] [id number] [facility] 2023-05-06 Outpatient Boudreaux, STLMLC STLMLC [id number] Common 07:29:00 Avnee [id number] [facility] 2023-03-31 Outpatient Krause, STLMLC STLMLC [id number] Common 08:39:00 [facility] [id number] [facility] 2022-12-06 Outpatient Wilda, STLMLC STLMLC [id number] Common 11:10:00 Yvonne [id number] [facility] 2022-11-26 Outpatient BRUNER, Na STLMLC STLMLC [id number] Common 14:31:00 [id number] [facility] 2022-05-24 Outpatient Bruner, Na STLMLC STLMLC [id number] Common 08:31:00 [facility] 2022-05-14 Outpatient Bruner, Na STLMLC STLMLC [id number] Common 10:10:01 [facility] 2022-04-25 Outpatient Bruner, Na STLMLC STLMLC [id number] Common 13:51:00 [facility] 2022-04-03 Outpatient Bruner, Na STLMLC STLMLC [id number] Common 14:58:01 [facility] 2022-03-15 Outpatient Bruner, Na STLMLC STLMLC [id number] 2 Common 09:30:00 [facility] 2022-02-01 Outpatient Bruner, Na STLMLC STLMLC [id number] 2 Common 09:14:00 [facility] 2021-12-05 Outpatient Bruner, Na STLMLC STLMLC [id number] 2 Common 14:30:46 [facility] 2021-12-05 Outpatient Bruner, Na STLMLC STLMLC [id number] 2 Common 13:40:57 [id number] [facility] 2021-12-05 Outpatient Bruner, Na STLMLC STLMLC [id number] 2 Common 13:36:53 [id number] [facility] 2021-12-05 Outpatient Bruner, Na STLMLC STLMLC [id number] 2 Common 13:34:35 [id number] [facility] 2021-12-05 Outpatient Bruner, Na STLMLC STLMLC [id number] 2 Common 13:29:46 [id number] [facility] 2021-12-05 Outpatient Bruner, Na STLMLC STLMLC [id number] 2 Common 13:24:32 [id number] [facility] 2021-12-05 Outpatient Bruner, Na STLMLC STLMLC [id number] 2 Common 13:24:05 [id number] [facility] 2021-12-05 Outpatient Bruner, Na STLMLC STLMLC [id number] 2 Common 12:27:05 [id number] [facility] 2021-12-05 Outpatient Bruner, Na STLMLC STLMLC [id number] 2 Common 12:26:31 [id number] [facility] 2021-12-05 Outpatient STLMLC STLMLC [id number] Common 12:15:30 [id number] [facility] 2021-12-05 Outpatient Walt, Kin STLMLC STLMLC [id number] Common 12:09:56 [id number] [facility] 2021-12-05 Outpatient Millender, STLMLC STLMLC [id number] Common 11:44:53 Fatou [id number] [facility] 2021-12-05 Outpatient Millender, STLMLC STLMLC [id number] Common 11:25:49 Fatou [id number] [facility] 2021-12-05 Outpatient Millender, STLMLC STLMLC [id number] Common 11:12:23 Fatou [id number] [facility] 2021-12-05 Outpatient Millender, STLMLC STLMLC [id number] Common 11:05:58 Fatou [id number] [facility] 2021-12-05 Outpatient Millender, STLMLC STLMLC [id number] Common 10:57:38 Fatou [id number] [facility] 2023-08-06 2023-08-06 Care Stacia [id number]. CLA [id number] [facility] 17:30:00 18:00:00 Coordinati Jose [id number] Medical on Non [id number] Billable [id number] 2022-12-20 2022-12-20 (TEL) STLMLC STLMLC [id number] Co mmon 00:00:00 00:00:00 [facility] 2022-12-06 2022-12-06 (TEL) STLMLC STLMLC [id number] Co mmon 00:00:00 00:00:00 [facility] 2022-10-22 2022-10-22 (TEL) STLMLC STLMLC [id number] Co mmon 00:00:00 00:00:00 [facility] 2022-09-30 2022-09-30 (TEL) STLMLC STLMLC [id number] Co mmon 00:00:00 00:00:00 [facility] 2022-09-30 2022-09-30 (TEL) STLMLC STLMLC [id number] Co mmon 00:00:00 00:00:00 [facility] 2022-09-30 2022-09-30 (TEL) STLMLC STLMLC [id number] Co mmon 00:00:00 00:00:00 [facility] 2022-09-12 2022-09-12 OFFICE STLMLC STLMLC [id number] Co mmon 00:00:00 00:00:00 VISIT [facility] 4 [facility] 2022-09-03 2022-09-03 (TEL) STLMLC STLMLC [id number] Co mmon 00:00:00 00:00:00 [facility] 2022-08-27 2022-08-27 (TEL) STLMLC STLMLC [id number] Co mmon 00:00:00 00:00:00 [facility] 2022-07-02 2022-07-02 CAV Leatha [id number]. [id number]. CLAC [id number] [facility] 14:30:00 15:30:00 Stu [id number] [place] [id number] 2022-06-19 2022-06-19 Outpatient Thomas_T DM DMG [id number] [facility] 00:00:00 00:00:00 [id number] [facility] 2022-06-19 2022-06-19 Outpatient Thomas_T DM DMG [id number] [facility] 00:00:00 00:00:00 [id number] [facility] 2022-06-19 2022-06-19 (TEL) STLMLC STLMLC [id number] Co mmon 00:00:00 00:00:00 [facility] 2022-05-28 2022-05-28 (TEL) STLMLC STLMLC [id number] Co mmon 00:00:00 00:00:00 [facility] 2022-05-28 2022-05-28 OFFICE STLMLC STLMLC [id number] Co mmon 00:00:00 00:00:[address] [facility] LEVEL 4 [facility] 2022-05-24 2022-05-24 Out[place] DMG [facility] [place] [id number] [facility] 07:02:00 07:02:00 [id number] [facility] 2022-05-17 2022-05-17 (TEL) STLMLC STLMLC [id number] Co m[facility] 00:00:00 00:00:00 [facility] 2022-05-06 2022-05-06 (TEL) STLMLC STLMLC [id number] Co mmon 00:00:00 00:00:00 [facility] 2022-05-01 2022-05-01 Outpatient [facility] [id number] [place] 00:00:00 00:00:[address]INO [address] 2022-04-22 2022-04-22 (TEL) STLMLC STLMLC [id number] Co mmon 00:00:00 00:00:00 [facility] 2022-04-22 2022-04-22 (TEL) STLMLC STLMLC [id number] Co mmon 00:00:00 00:00:00 [facility] 2022-04-19 2022-04-19 Outpatient _SWHAWPRC PRIV PRIV [id number] [place] 12:33:00 12:33:00 _Nayanaey [id number] Medica l 2022-04-18 2022-04-18 Outpatient DMG DMG [id number] [facility] 04:30:00 04:30:00 [id number] [facility] 2022-04-18 2022-04-18 (TEL) STLMLC STLMLC [id number] Co m[facility] 00:00:00 00:00:00 [facility] 2022-04-16 2022-04-16 (TEL) STLMLC STLMLC [id number] Co mmon 00:00:00 00:00:00 [facility] 2022-04-04 2022-04-04 OFFICE STLMLC STLMLC [id number] Co mmon 00:00:00 00:00:00 [facility]IT [facility] - [facility] LEVEL 4 [facility] 2022-04-03 2022-04-03 (TEL) STLMLC STLMLC [id number] Co mmon 00:00:00 00:00:00 [facility] 2022-03-28 2022-03-28 (TEL) STLMLC STLMLC [id number] Co mmon 00:00:00 00:00:00 [facility] 2022-03-19 2022-03-19 SUB ANNUAL STLMLC STLMLC [id number] Common 00:00:00 00:00:00 MCR [facility] VISIT [facility] 2022-03-19 2022-03-19 (TEL) STLMLC STLMLC [id number] Co mmon 00:00:00 00:00:00 [facility] 2022-03-19 2022-03-19 OFFICE STLMLC STLMLC [id number] Co mmon 00:00:00 00:00:00 VISIT EST Spir it PT LEVEL 3 [facility] 2022-02-25 2022-02-25 (TEL) STLMLC STLMLC [id number] Co mmon 00:00:00 00:00:00 [facility] 2022-02-18 2022-02-18 (TEL) STLMLC STLMLC [id number] Co mmon 00:00:00 00:00:00 [facility] 2022-01-29 2022-01-29 (TEL) STLMLC STLMLC [id number] Co mmon 00:00:00 00:00:00 [facility] 2022-01-04 2022-01-04 (TEL) STLMLC STLMLC [id number] Co mmon 00:00:00 00:00:00 [facility] 2022-01-03 2022-01-03 Outpatient DMG DMG [id number] [facility] 08:01:00 08:01:00 [facility] 2021-11-13 2021-11-13 OFFICE STLMLC STLMLC [id number] Co mmon 00:00:00 00:00:00 VISIT EST Spir it PT LEVEL 3 [facility] 2021-10-02 2021-10-02 OL DIG E/M STLMLC STLMLC [id number] Common 00:00:00 00:00:00 SVC 21+ [facility] 2021-08-15 2021-08-15 (TEL) STLMLC STLMLC [id number] Co mmon 00:00:00 00:00:00 [facility] 2021-07-03 2021-07-03 OFFICE STLMLC STLMLC [id number] Co mmon 00:00:00 00:00:00 VISIT EST Spir it PT LEVEL 3 [facility] 2021-06-05 2021-06-05 Outpatient STLMLC STLMLC [id number] Common 00:00:00 00:00:00 [facility] 2021-06-04 2021-06-04 Outpatient STLMLC STLMLC [id number] Common 00:00:00 00:00:00 [facility] 2021-05-21 2021-05-21 Outpatient STLMLC STLMLC [id number] Common 00:00:00 00:00:00 [facility] 2021-05-11 2021-05-11 Outpatient STLMLC STLMLC [id number] Common 00:00:00 00:00:00 [facility] 2021-03-13 2021-03-13 Outpatient STLMLC STLMLC [id number] Common 00:00:00 00:00:00 [facility] 2021-03-13 2021-03-13 Outpatient STLMLC STLMLC [id number] Common 00:00:00 00:00:00 [facility] 2020-12-22 2020-12-22 Outpatient STLMLC STLMLC [id number] Common 00:00:00 00:00:00 [facility] 2020-12-15 2020-12-15 Outpatient STLMLC STLMLC [id number] Common 00:00:00 00:00:00 [facility] 2020-12-11 2020-12-11 Outpatient STLMLC STLMLC [id number] Common 00:00:00 00:00:00 [facility] 2020-07-25 2020-07-25 Outpatient STLMLC STLMLC [id number] Common 00:00:00 00:00:00 [facility] 2020-07-20 2020-07-20 [facility] [id number] Common 13:00:00 13:00:00 t [facility] [address] [facility] 2020-07-18 2020-07-18 Out[facility] [id number] Common 09:58:00 09:58:00 t [facility] [address] [facility] 2020-06-15 2020-06-15 [facility] [id number] Common 09:00:00 09:00:00 t Specialty/U Sp vidhi Specialty rology - [facility] 2020-04-19 2020-04-19 [facility] [id number] Common 08:40:00 08:40:00 t [facility] [address] [facility] 2020-02-29 2020-02-29 Appointmen [facility] [id number] [place] 11:00:00 11:00:00 t; SHRUTI CLARKE M.D. [facility] SHRUTILegacy [facility] Anshul 2020-02-21 2020-02-21 [facility] [id number] Common 09:54:00 09:54:00 t [facility] [address] [facility] 2020-01-18 2020-01-18 [facility] [id number] Common 08:30:00 08:30:00 t [facility] [address] [facility] 2020-01-04 2020-01-04 Appointmen [facility] [id number] [place] 11:15:00 11:15:00 t; SHRUTI CLARKE M.D. - [facility] 2019-12-16 2019-12-16 [facility] [id number] Common 09:00:00 09:00:00 t Specialty/U Sp vidhi Specialty rology - [facility] 2019-11-25 2019-11-25 Appointmen [facility] [id number] [place] 14:30:00 14:30:00 t; SHRUTI CLARKE M.D. - [facility] 2019-11-23 2019-11-23 [facility] [id number] Common 14:30:00 14:30:[address] [facility] [address] [facility] [address] [facility] 2019-11-08 2019-11-08 Out[facility] [id number] Common 13:00:00 13:00:[address] [facility] [address] [facility] 2019-10-19 2019-10-19 [id number] Common 10:00:00 10:00:[address] [facility] [address] [facility] 2019-09-14 2019-09-14 [facility] [id number] Common 10:31:00 10:31:[address] [facility] 2019-09-09 2019-09-09 [facility] [id number] Common 19:04:00 19:04:[address] [facility] 2019-09-09 2019-09-09 [id number] Common 09:00:00 09:00:[address] [facility] 2019-08-16 2019-08-16 [id number] Common 08:20:00 08:20:[address] [facility] 2019-07-31 2019-07-31 [facility] [id number] Common 02:03:00 02:03:[address] [facility] 2019-07-21 2019-07-21 [facility] [id number] Common 16:39:00 16:39:[address] [facility] 2019-07-20 2019-07-20 [facility] [id number] Common 11:20:00 11:20:[address] [facility] 2019-06-17 2019-06-17 [facility] [id number] Common 16:25:00 16:25:[address] [facility] 2019-06-16 2019-06-16 [facility] [id number] Common 09:45:00 09:45:00 t Specialty/U Sp vidhi Specialty rology - [facility] 2019-05-17 2019-05-17 [facility] [id number] Common 19:51:00 19:51:[address] [facility] 2019-05-12 2019-05-12 [facility] [id number] Common 12:59:00 12:59:[address] [facility] 2019-05-12 2019-05-12 [facility] [id number] Common 08:00:00 08:00:[address] [facility] 2019-05-04 2019-05-04 [facility] [id number] Common 14:00:00 14:00:[address] [facility] 2019-02-22 2019-02-22 [facility] [id number] Common 10:40:00 10:40:[address] [facility] 2019-01-13 2019-01-13 [facility] [id number] Common 13:00:00 13:00:00 t Specialty/U Sp vid[facility] Specialty rology - [facility] 2019-01-06 2019-01-06 [facility] [id number] Common 13:30:00 13:30:[address] [facility] 2019-01-04 2019-01-04 [facility] [id number] Common 08:15:00 08:15:00 t Specialty/U Sp vidhi Specialty rology - [facility] 2018-12-28 2018-12-28 [facility] [id number] Common 11:34:00 11:34:[address] [facility] 2018-12-01 2018-12-01 [facility] [id number] Common 09:45:00 09:45:[address] [facility] 2018-11-24 2018-11-24 [facility] [id number] Common 21:55:00 21:55:[address] [facility] 2018-11-24 2018-11-24 [facility] [id number] Common 19:59:00 19:59:[address] [facility] 2018-11-24 2018-11-24 [facility] [id number] Common 09:45:00 09:45:[address] [facility] 2018-07-06 2018-07-06 [facility] [id number] Common 11:30:00 11:30:00 t Specialty/U Sp vidhi Specialty rology - [facility] /[facility] 2018-06-22 2018-06-22 [facility] [id number] Common 13:46:00 13:46:00 t Specialty/U Sp vidhi Specialty rology - [facility] 2018-06-18 2018-06-18 [facility] [id number] Common 14:36:00 14:36:[address] [facility] 2018-06-17 2018-06-17 [facility] [id number] Common 10:30:00 10:30:00 t Specialty/U Sp vidhi Specialty rology - [facility] /[facility] 2018-05-28 2018-05-28 [facility] [id number] Common 14:15:00 14:15:[address] [facility] [address] [facility] 2018-03-13 2018-03-13 [facility] 13 [id number] Common 08:43:00 08:43:[address] [facility] [address] [facility] 2018-03-04 2018-03-04 Outpatient [facility] [id number] Common 10:15:00 10:15:[address] [facility] [address] [facility] Results Test Description Test Time Test Comments Results Result Sour e Comments [U] XR HAND MIN 3 2019-11-25 [facility] VWS BILATERAL 13:21:00 acquired, not reported on this accession number. [U] XRAY SPINE 2019-11-25 [facility] LUMBOSACRAL 2 OR 3 13:18:00 acquired, not [id number] reported on this accession number. [U] XRAY ANKLE MIN 2019-11-25 [facility] 3 VWS RIGHT [id number] 13:17:00 acquired, not reported on this accession number. [U] XRAY SPINE 2019-11-25 [facility] CERVICAL 2 OR 3 13:17:00 acquired, not [id number] [id number] reported on this accession number.
[2023-09-08] MEDS ORDERED: ACETAMINOPHEN 325 MG TABLET ONE (19:49)
[2023-09-08 19:52] LABS: Absolute Lymphocytes (CBC) 1.3 K/uL (0.7-4.9); Hematocrit 35.5 % (36.0-45.0); MCV 91.5 fL (80-100); Platelets 163 thou/uL (152-406); RBC Red Blood Cell Count 3.88 M/uL (3.86-4.86)
--- NOTE | 2023-09-08 19:58 | RAD REPORT ---
EXAM DESCRIPTION: RAD - Chest Single View - 09/08/2023 7:48 pm CLINICAL HISTORY: FEVER Chest pain. COMPARISON: Chest Single View dated 04/09/2022; Chest Single View dated 04/08/2022; Chest Single View dated 03/26/2022; Chest Single View dated 03/20/2022 FINDINGS: Portable technique limits examination quality. The lungs are emphysematous but grossly clear. The heart is mildly enlarged in size. No displaced fra ctures.Cervical spine hardware. IMPRESSION: No acute intrathoracic process suspected.
[2023-09-08 20:16] LABS: Albumin 3.4 g/dL (3.4-5.0); Bilirubin Total 0.6 mg/dL (0.2-1.0); Potassium 3.9 mEq/L (3.5-5.1); Protein, Total 7.7 g/dL (6.4-8.2)
[2023-09-08 20:41] LABS: Specific Gravity 1.009 (1.005-1.030); Urine Bacteria 20-50 /HPF (<20); Urine Bilirubin NEGATIVE (Negative); Urine Blood Trace (Negative); Urine Clarity Turbid (Clear); Urine Color Light-Yellow (Yellow); Urine Crystals Unidentified Few /HPF (None Seen); Urine Glucose NEGATIVE (Negative); Urine Mucus Slight /HPF (None Seen); Urine Protein 1+ (Negative); Urine RBC <5 /HPF (None Seen); Urine Urobilinogen Normal (Normal); Urine WBC Clump Rare /HPF (None Seen); Urine pH 5.5 (5.0-7.0)
--- NOTE | 2023-09-08 21:26 | ER ---
Nurse's Notes [facility] Name: Jesi Lee Age: 77 yrs Sex: Female : 1945 Arrival Date: 09/08/2023 Time: 18:16 Bed 17 Private MD: Diagnosis: Weakness;UTI/ Urinary tract infection, site not specified Presentation: 09/08 18:27 Chief complaint: Spouse and/or significant other states: the patient has had fever and ap3 lack of appetite for 2 days now. It is reported patient has been taking Tylenol but it has not been helping to bring the fever down. Coronavirus screen: Client presents with at least one sign or symptom that may indicate coronavirus-19. Ebola Screen: No symptoms or risks identified at this time. Initial Sepsis Screen: Does the patient meet any 2 criteria? Temp <36.0*C (96.8*F)) or > 38.3*C (100.9*F). No. Patient's initial sepsis screen is negative. Does the patient have a suspected source of infection? No. Patient's initial sepsis screen is negative. Risk Assessment: Do you want to hurt yourself or someone else? Patient reports no desire to harm self or others. Onset of symptoms was September 06, 2023. 18:27 Method Of Arrival: Wheelchair ap3 18:27 Acuity: RENETTA 3 ap3 Triage Assessment: 18:29 General: Appears ill, Behavior is calm, cooperative, appropriate for age, Reports fever ap3 for feeling ill for fatigue for. Pain: Denies pain. Neuro: Level of Consciousness is awake, alert, obeys commands, Oriented to person, place, time, situation, Appropriate for age. Cardiovascular: Patient's skin is warm and dry. Respiratory: Airway is patent Respiratory effort is even, unlabored, Respiratory pattern is regular, symmetrical. Historical: - Allergies: 18:28 Cipro; ap3 - PMHx: 18:28 Diabetes; Diverticulitis; Hypertension; ruptured bowel; Atrial fibrillation; ap3 - PSHx: 18:28 bowel resection with colostomy and reversal; hysterectomy; ap3 - Immunization history:: Client reports receiving the 2nd dose of the Covid vaccine. - Social history:: Smoking status: Patient denies any tobacco usage or history of. Screenin:29 Abuse screen: Denies threats or abuse. Nutritional screening: No deficits noted. ap3 Tuberculosis screening: No symptoms or risk factors identified. 19:25 [facility] ED Fall Risk Assessment (Adult) History of falling in the last 3 months, nw1 including since admission Yes- single mechanical fall (1 pt) Confusion or Disorientation No (0 pts) Intoxicated or Sedated No (0 pts) Impaired Gait No (0 pts) Mobility Assist Device Used No (0 pt) Altered Elimination No (0 pt) Score/Fall Risk Level 0 - 2 = Low Risk Oriented to surroundings, Maintained a safe environment, Educated pt \T\ family on fall prevention, incl call for assistance when getting out of bed, Assessed \T\ reinforced patient's understanding of fall precautions, Provided non-skid footwear, Hourly rounding (assess needs \T\ fall precautionary measures) done, Used ambulatory aids as needed (educated on \T\ assisted with). Sepsis Screening: . Infection: Patient has suspected or documented infection. Patient is not currently on antibiotics or on antibiotics were prescribed as prophylaxis. SIRS - Systemic Inflammatory Response Syndrome: 2 or more indicates positive screen: [temperature greater than or equal to 100.9F or less than or equal to 96.8F] Patient has a negative screen for severe sepsis based on SIRS criteria. Assessment: 19:00 Reassessment: Report received from AM nurse. Pending sepsis workup. Pt noted in bed nw1 with at bedside. 0 s/s of acute distress noted. 19:21 Reassessment: Pt and report that patient has had generalized weakness x2 days. nw1 Noted fever and attempted control with tylenol and motrin, both partially effective. General: Appears in no apparent distress. comfortable, well groomed, well developed, well nourished, Behavior is calm, cooperative, appropriate for age. Pain: Complains of pain in face Current management is with Tylenol, is pt reports fever and headache. Neuro: No deficits noted. Cardiovascular: Heart tones present Rhythm is sinus rhythm with unifocal PVCs. Respiratory: No deficits noted. GI: Patient currently denies nausea, vomiting, Parent/caregiver reports the patient having lack of hunger. EENT: Parent/caregiver reports the patient having SELDOVIA baseline. Musculoskeletal: Parent/caregiver report the patient having weakness in generalized. 22:48 Reassessment: Hospitalist at bedside to assess. nw1 09/09 05:45 Reassessment: Blood sent to lab via tubing system at this time. Vital Signs: 09/08 18:27 BP 174 / 75; Pulse 66; Resp 19; Temp 101.7; Pulse Ox 97% ; Weight 58.06 kg; ap3 19:15 Pulse 81; Resp 16; Temp 100.2(O); Pulse Ox 98% ; nw1 20:34 BP 124 / 64; Pulse 67; Resp 17; Pulse Ox 93% on R/A; nw1 20:53 BP 145 / 61; Pulse 63; Resp 15 S; Temp 98.8(O); Pulse Ox 97% on R/A; nw1 21:56 BP 150 / 60; Pulse 63; Resp 15; Temp 98.8; Pulse Ox 97% ; nw1 22:48 BP 123 / 75; Pulse 65; Resp 16; Pulse Ox 98% on R/A; nw1 23:35 BP 178 / 72; Pulse 71; Resp 16; Temp 98.7(O); Pulse Ox 96% on R/A; nw09/09 02:28 BP 168 / 69; Pulse 94; Resp 15; Pulse Ox 96% on R/A; nw1 03:22 BP 177 / 59; Pulse 87; Resp 14; Pulse Ox 96% ; nw1 04:37 BP 171 / 63; Pulse 66; Resp 15; Temp 100.4(O); Pulse Ox 97% on R/A; nw1 05:47 BP 148 / 53; Pulse 71; Resp 12; Temp 98.8(O); Pulse Ox 96% on R/A; nw1 06:23 BP 155 / 56; Pulse 81; Resp 13; Pulse Ox 97% ; nw1 Travis Coma Score: 09/08 19:15 Eye Response: spontaneous(4). Motor Response: obeys commands(6). Verbal Response: nw1 oriented(5). Total: 15. ED Course: 18:19 Patient arrived in ED. rg4 18:20 Simeon Mulligan PA is PHCP. cp 18:20 Sundeep Curtis MD is Attending Physician. cp 18:28 Triage completed. ap3 18:29 Arm band placed on right wrist. ap3 18:34 Belen Srivastava, RAUL is Primary Nurse. kc6 19:10 EKG done, by ED staff. sm8 19:25 Patient has correct armband on for positive identification. Placed in gown. Bed in low nw1 position. Call light in reach. Side rails up X2. Adult w/ patient. Provided Education on: POC. Client placed on continuous cardiac and pulse oximetry monitoring. NIBP monitoring applied. Door closed. Noise minimized. Verbal reassurance given. 19:25 No provider procedures requiring assistance completed. Inserted saline lock: 22 gauge nw1 in right forearm, using aseptic technique. Blood collected. 19:32 Influenza Screen (a \T\ B) Sent. nw1 19:32 COVID-19 SARS RT PCR Sent. nw1 19:50 Chest Single View XRAY In Process Unspecified. EDMS 20:18 Blood Culture Adult (2) Sent. nw1 20:18 Lactate w/ 2H reflex if indic. Sent. nw1 20:18 Protime (+inr) Sent. nw1 20:18 Ptt, Activated Sent. nw1 20:18 Urinalysis w/ reflexes Sent. nw1 21:25 Vito Rader MD is Hospitalizing Provider. cp 21:34 Urine Culture Sent. nw1 21:34 Blood Culture Adult (2) Sent. nw1 21:55 CBC with Diff Sent. nw1 09/09 05:46 Phosphorus Sent. nw1 05:46 Phosphorus Sent. nw1 05:46 CBC with Automated Diff Sent. nw1 05:46 CBC with Automated Diff Sent. nw1 05:46 Magnesium Sent. nw1 05:46 Magnesium Sent. nw1 05:46 Basic Metabolic Panel Sent. nw1 05:46 Basic Metabolic Panel Sent. nw1 09:00 Patient admitted, IV remains in place. mb9 Administered Medications: 09/08 18:54 CANCELLED (Physician Discretion): acetaminophensuppository 650 mg NM once cp 20:17 Drug: Acetaminophen PO 650 mg PO once Route: PO; nw1 21:34 Follow up: Response: No adverse reaction; Temperature is decreased nw1 21:46 Drug: NS 0.9% IV 250 ml IV at bolus once Route: IV; Rate: bolus; Site: right forearm; nw09/09 03:23 Follow up: Response: No adverse reaction; IV Status: Completed infusion nw09/08 21:46 Drug: NS 0.9% IV 1000 ml IV at 50 ml/hr continuous Route: IV; Rate: 50 ml/hr; Site: nw1 right forearm; 09/09 03:23 Follow up: Response: No adverse reaction; IV Status: Completed infusion nw1 09/08 21:46 Drug: Rocephin IV 1 grams IV at calculated rate once; Given slow IV push per pharmacy nw1 instructions Route: IV; Rate: calculated rate; Site: right forearm; 09/09 03:23 Follow up: IV Status: Completed infusion nw1 Medication: 09/08 19:25 VIS not applicable for this client. nw1 Outcome: 21:26 Decision to Hospitalize by Provider. jaqueline 09/09 02:29 Admitted to ER Hold. Please see [facility] for further documentation. nw1 Condition: stable Instructed on the need for admit, 17:08 Patient left the ED. mb9 Signatures: Dispatcher [employer] EDMS Simeon Mulligan PA PA cp Garcia, Rubi rg4 Ayla Alcala RN RN ap3 Belen Srivastava RN RN kc6 Karolina Amaya RN RN mb9 Imelda Monreal 8 Demi Butler, RAUL RN nw1 Corrections: (The following items were deleted from the chart) 09/08 19:21 19:20 Reassessment: Report received from AM nurse. Pending sepsis workup. Pt noted in nw1 bed with at bedside. 0 s/s of acute distress noted. nw1
--- NOTE | 2023-09-08 21:26 | EDPHYS ---
Physician Documentation [facility] Name: Jesi Lee Age: 77 yrs Sex: Female : 1945 Arrival Date: 09/08/2023 Time: 18:16 Bed 17 Private MD: ED Physician Sundeep Curtis HPI: 09/08 18:40 This 77 yrs old Female presents to ER via Wheelchair with complaints of Fever. cp 18:40 The patient reports fever, with an emergency department temperature of 101.7 degrees cp Fahrenheit. Onset: The symptoms/episode began/occurred today. Associated signs and symptoms: Pertinent negatives: abdominal pain, chest pain, cough, diarrhea, headache, skin rash, shortness of breath, vomiting, chest pain. Severity of symptoms: in the emergency department the symptoms are unchanged despite home interventions. Historical: - Allergies: 18:28 Cipro; ap3 - PMHx: 18:28 Diabetes; Diverticulitis; Hypertension; ruptured bowel; Atrial fibrillation; ap3 - PSHx: 18:28 bowel resection with colostomy and reversal; hysterectomy; ap3 - Immunization history:: Client reports receiving the 2nd dose of the Covid vaccine. - Social history:: Smoking status: Patient denies any tobacco usage or history of. ROS: 18:45 Constitutional: Positive for body aches, chills, fever, poor PO intake, cp 18:45 Eyes: Negative for injury, pain, redness, and discharge, cp 18:45 ENT: Negative for drainage from ear(s), ear pain, sore throat, difficulty swallowing, difficulty handling secretions, 18:45 Cardiovascular: Negative for chest pain, edema, palpitations, 18:45 Respiratory: Negative for cough, shortness of breath, wheezing, 18:45 Abdomen/GI: Negative for abdominal pain, vomiting, diarrhea, constipation, anorexia, 18:45 Back: Negative for pain at rest, pain with movement, cp 18:45 Skin: Negative for cellulitis, rash, 18:45 Neuro: Positive for weakness, Negative for altered mental status, dizziness, headache, 18:45 All other systems are negative, cp Exam: 18:50 Constitutional: The patient appears in no acute distress, alert, awake, cp non-diaphoretic, non-toxic, well developed, well nourished, 18:50 Head/Face: Normocephalic, atraumatic. cp 18:50 Eyes: Periorbital structures: appear normal, Conjunctiva: normal, no exudate, no injection, Sclera: no appreciated abnormality, Lids and lashes: appear normal, bilaterally, 18:50 ENT: External ear(s): are unremarkable, Nose: is normal, Mouth: Lips: moist, Oral mucosa: pink and intact, moist, Posterior pharynx: Airway: no evidence of obstruction, patent, erythema, is not appreciated, exudate, is not appreciated, 18:50 Neck: ROM/movement: is normal, is supple, without pain, no range of motions limitations, no meningismus, Lymph nodes: no appreciated lymphadenopathy, 18:50 Chest/axilla: Inspection: normal, 18:50 Cardiovascular: Rate: normal, Rhythm: regular, Edema: is not appreciated, JVD: is not appreciated, 18:50 Respiratory: the patient does not display signs of respiratory distress, Respirations: normal, no use of accessory muscles, no retractions, labored breathing, is not present, Breath sounds: are clear throughout, no decreased breath sounds, no stridor, no wheezing, 18:50 Abdomen/GI: Inspection: abdomen appears normal, Bowel sounds: active, all quadrants, Palpation: abdomen is soft and non-tender, in all quadrants, 18:50 Back: pain, is absent, ROM is normal, 18:50 Skin: cellulitis, is not appreciated, no rash present. 18:50 Neuro: Orientation: to person, place \T\ time. Mentation: is normal, Motor: moves all fours, no focal weakness, Sensation: is normal, 09/09 19:13 ECG was reviewed by the Attending Physician. cp Vital Signs: 09/08 18:27 BP 174 / 75; Pulse 66; Resp 19; Temp 101.7; Pulse Ox 97% ; Weight 58.06 kg; ap3 19:15 Pulse 81; Resp 16; Temp 100.2(O); Pulse Ox 98% ; nw1 20:34 BP 124 / 64; Pulse 67; Resp 17; Pulse Ox 93% on R/A; nw1 20:53 BP 145 / 61; Pulse 63; Resp 15 S; Temp 98.8(O); Pulse Ox 97% on R/A; nw1 21:56 BP 150 / 60; Pulse 63; Resp 15; Temp 98.8; Pulse Ox 97% ; nw1 22:48 BP 123 / 75; Pulse 65; Resp 16; Pulse Ox 98% on R/A; nw1 23:35 BP 178 / 72; Pulse 71; Resp 16; Temp 98.7(O); Pulse Ox 96% on R/A; nw1 09/09 02:28 BP 168 / 69; Pulse 94; Resp 15; Pulse Ox 96% on R/A; nw1 03:22 BP 177 / 59; Pulse 87; Resp 14; Pulse Ox 96% ; nw1 04:37 BP 171 / 63; Pulse 66; Resp 15; Temp 100.4(O); Pulse Ox 97% on R/A; nw1 05:47 BP 148 / 53; Pulse 71; Resp 12; Temp 98.8(O); Pulse Ox 96% on R/A; nw1 06:23 BP 155 / 56; Pulse 81; Resp 13; Pulse Ox 97% ; nw1 [place] Coma Score: 09/08 19:15 Eye Response: spontaneous(4). Motor Response: obeys commands(6). Verbal Response: nw1 oriented(5). Total: 15. MDM: 18:33 Patient medically screened. cp 21:25 Data reviewed: vital signs, nurses notes, lab test result(s), radiologic studies, plain cp films, and as a result, I will admit patient. 21:25 Differential diagnosis: viral Infection, bacterial infection, bronchitis, pneumonia cp UTI, gastroenteritis, sepsis. Consideration of Admission/Observation Patient was admitted/placed on observation. Management of patient was discussed with the following: Hospitalist: DR Rader will admit after discussion. I considered the following discharge prescriptions or medication management in the emergency department Medications were administered in the Emergency Department. See MAR. Test considered but Not performed: CT: chest, abdomen/pelvis. 09/08 18:54 Order name: COVID-19 SARS RT PCR; Complete Time: 20:16 cp 09/08 18:54 Order name: Influenza Screen (a \T\ B); Complete Time: 21:09 cp 09/08 18:54 Order name: Blood Culture Adult (2) cp 09/08 18:54 Order name: CBC with Diff cp 09/08 20:16 Interpretation: Normal except: WBC 16.00; HGB 11.8; HCT 35.5; EDGARD% 85.7; LYM% 8.0; NEUT cp A 13.7. 09/08 18:54 Order name: CMP; Complete Time: 20:30 cp 09/08 20:30 Interpretation: Normal except: NA 133; GLUC 202; BUN 26; CRE 1.84; GFR 28; CA 8.4; GLOB cp 4.3; A/G 0.8. 09/08 18:54 Order name: Lactate w/ 2H reflex if indic.; Complete Time: 21:09 cp 09/08 18:54 Order name: Protime (+inr); Complete Time: 21:09 cp 09/08 18:54 Order name: Ptt, Activated; Complete Time: 21:09 cp 09/08 18:54 Order name: Urinalysis w/ reflexes; Complete Time: 21:09 cp 09/08 21:09 Interpretation: Reviewed. cp 09/08 19:16 Order name: Glucose, Ancillary Testing; Complete Time: 20:16 EDMS 09/08 20:44 Order name: Urine Culture EDMS 09/08 21:48 Order name: Manual Differential EDMS 09/08 21:51 Order name: Basic Metabolic Panel EDMS 09/08 21:51 Order name: Basic Metabolic Panel EDMS 09/08 21:51 Order name: CBC with Automated Diff EDMS 09/08 21:51 Order name: CBC with Automated Diff EDMS 09/08 21:51 Order name: Magnesium EDMS 09/08 21:51 Order name: Magnesium EDMS 09/08 21:51 Order name: Phosphorus EDMS 09/08 21:51 Order name: Phosphorus EDMS 09/09 08:20 Order name: Glucose, Ancillary Testing EDMS 09/09 11:56 Order name: Glucose, Ancillary Testing EDMS 09/09 17:04 Order name: Glucose, Ancillary Testing EDMS 09/08 18:54 Order name: Chest Single View XRAY; Complete Time: 20:16 cp 09/08 18:54 Order name: EKG; Complete Time: 18:55 cp 09/08 18:54 Order name: Accucheck; Complete Time: 19:06 cp 09/08 18:54 Order name: Cardiac monitoring; Complete Time: 19:10 cp 09/08 18:54 Order name: EKG - Nurse/Tech; Complete Time: 19:10 cp 09/08 18:54 Order name: IV Saline Lock - Large Bore; Complete Time: 19:32 cp 09/08 18:54 Order name: Labs collected and sent; Complete Time: 20:18 cp 09/08 18:54 Order name: O2 Per Protocol; Complete Time: 19:32 cp 09/08 18:54 Order name: O2 Sat Monitoring; Complete Time: 19:32 cp 09/08 18:54 Order name: Vital Signs; Complete Time: 19:32 cp EC/31 19:13 Rate is 89 beats/min. Rhythm is regular. CO interval is prolonged at 202 msec. QRS cp interval is normal. QT interval is normal. T waves are Inverted in lead III. Interpreted by me. Reviewed by me. Administered Medications: 09/08 18:54 CANCELLED (Physician Discretion): acetaminophensuppository 650 mg CO once cp 20:17 Drug: Acetaminophen PO 650 mg PO once Route: PO; nw1 21:34 Follow up: Response: No adverse reaction; Temperature is decreased nw 21:46 Drug: NS 0.9% IV 250 ml IV at bolus once Route: IV; Rate: bolus; Site: right forearm; nw1 09/09 03:23 Follow up: Response: No adverse reaction; IV Status: Completed infusion nw1 09/08 21:46 Drug: NS 0.9% IV 1000 ml IV at 50 ml/hr continuous Route: IV; Rate: 50 ml/hr; Site: [facility] right forearm; 09/09 03:23 Follow up: Response: No adverse reaction; IV Status: Completed infusion nw1 09/08 21:46 Drug: Rocephin IV 1 grams IV at calculated rate once; Given slow IV push per pharmacy nw1 instructions Route: IV; Rate: calculated rate; Site: right forearm; 09/09 03:23 Follow up: IV Status: Completed infusion nw1 Disposition Summary: 09/08/23 21:26 Hospitalization Ordered Notes: Hospitalization Status: Inpatient Admission cp Provider: Vito Rader cp Condition: Stable cp Problem: new cp Symptoms: have improved cp Bed/Room Type: Standard cp Location: Telemetry/MedSurg (Inpatient)(09/09/23 16:41) bd Room Assignment: 206(09/09/23 16:41) bd Diagnosis - Weakness cp - UTI/ Urinary tract infection, site not specified cp Forms: - Medication Reconciliation Form cp - SBAR form cp - Leadership Thank You Letter cp Addendum: 09/10/2023 21:07 I was immediately available for consultation during this patient's visit. I did not e c2 personally see the patient or guide the patient's care.. Signatures: Dispatcher [employer] Valentine Olivia Kimberly, RN RN Simeon Greenwood PA PA cp Prokisch, Amanda, RN RN ap3 Sundeep Curtis MD MD ec2 Demi Butler RN RN nw1 Corrections: (The following items were deleted from the chart) 09/08 18:54 18:54 Acetaminophen CO Suppository 650 mg CO once ordered. cp jaqueline 23:43 21:26 Telemetry/MedSurg (Inpatient) cp marge 23:43 21:26 cp marge 09/09 08:27 09/08 18:54 Orellana ordered. cp mb9 09/09 16:41 09/08 23:43 [facility] HOLD kl bd 09/09 16:41 09/08 23:43 ERHOLD- kl bd
[2023-09-08] MEDS ORDERED: ONDANSETRON 4 MG/2 ML VIAL IV PRN (21:45)
--- NOTE | 2023-09-08 21:50 | P.HP ---
Certification for Inpatient Patient admitted to: Observation With expected LOS: <2 Midnights Patient will require the following post-hospital care: None Practitioner: I am a practitioner with admitting privileges, knowledge of patient current condition, hospital course, and medical plan of care. Services: Services provided to patient in accordance with Admission requirements found in Title 42 Section 412.3 of the Code of Federal Regulations Patient History Date of Service: 09/09/23 Reason for admission: UTI. History of Present Illness: 77-year-old female patient with medical history significant for hypertension, diabetes type 2, hyperlipidemia, who came to the emergency with complaint of fever, night sweats and complaint of lethargy. She denies overt episode of lower extremity pain and burning on micturition. She was worked up in the emergency room with laboratory revealed UA that is concerning for UTI. Rapid flu test was negative. She was admitted for antibiotic administration. Allergies No Known Allergies Allergy (Verified 08/24/19 13:01) Home medications list reviewed: Yes Home Medications: Amlodipine Besylate 10 mg PO DAILY 03/24/22 Carvedilol [Coreg] 25 mg PO BID 03/24/22 Doxazosin [Cardura*] 2 mg PO BEDTIME 03/24/22 Hydralazine [Apresoline*] 25 mg PO BID* 03/24/22 Calcium Carbonate/Mag Carb [Magnebind 400 Tablet] 1 each PO TIDWM 30 Days #90 tablet 04/16/22 Gabapentin 100 mg PO TID 30 Days #90 04/16/22 - Past Medical/Surgical History Diabetic: Yes -: HTN -: Diabetes mellitus type 2, non insulin dependent -: Chronic Hearing loss -: Bowel Resection with Ileostomy bag/reversal -: Chronic hyponatremia -: Hysterectomy -: Cholecystectomy -: [place] cataract sx -: 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 She is . - Family History Mother -: Hypertension, Diabetes Sister -: Hypertension, Diabetes Dad & Mom -: Hypertension, Diabetes - Social History Alcohol use: No CD- Drugs: No Caffeine use: Yes Review of Systems General: Fever, Chills, Malaise Eyes: Unremarkable ENT: Unremarkable Respiratory: Unremarkable Cardiovascular: Unremarkable Gastrointestinal: Unremarkable Musculoskeletal: Unremarkable Integumentary: Unremarkable Neurological: Unremarkable Physical Examination - Physical Exam General: Alert, Oriented x3 HEENT: Atraumatic, Normocephalic Neck: Supple Respiratory: Normal air movement Cardiovascular: Regular rate/rhythm, Normal S1 S2 Gastrointestinal: Soft and benign Musculoskeletal: No swelling Neurological: Normal speech, Normal strength at 5/5 x4 extr - Studies Laboratory Data (last 24 hrs) 09/08/23 09/08/23 09/08/23 20:05 19:30 19:30 WBC 16.00 H Hgb 11.8 L Hct 35.5 L Plt Count 163 PT 11.0 INR 1.00 APTT 38.0 H Sodium 133 L Potassium 3.9 BUN 26 H Creatinine 1.84 H Glucose 202 H Total Bilirubin 0.6 AST 27 ALT 44 Alkaline Phosphatase 97 Microbiology Data (last 24 hrs): 09/08/23 19:30 Nasopharnyx Influenza Type A Antigen Screen - Final 09/08/23 19:30 Nasopharnyx Influenza Type B Antigen Screen - Final Assessment and Plan - Plan UTI: UA is significant and symptoms are consistent with significant UTI We will monitor urine and blood cultures for adjustment of antibiotic therapy. We will continue empiric antibiotic therapy of Rocephin pending urine culture finalization. Diabetes type 2: We will continue carb restricted diet and sliding scale insulin for glucose control. We will continue oral antihyperglycemic agents. Hypertension: We will monitor vital signs per unit protocol and continue antihypertensive medications. Hyperlipidemia: Continue statin therapy. Chronic kidney disease stage III: Creatinine is elevated at 1.84. We will dose medication for estimated glomerular filtration and avoid exposure to nephrotoxins. Prophylaxis: Lovenox for DVT prophylaxis CODE STATUS: Full code Disposition: We will treat for UTI and discharge home once urine culture and antibiotic therapy determination is finalized. Discharge Plan: Home - Advance Directives Does patient have a Living Will: No Does patient have a Durable POA for Healthcare: No
[2023-09-08] MEDS ORDERED: NA CHLORIDE 0.9% 250 ML ONE (21:54)
[2023-09-08] MEDS ORDERED: CEFTRIAXONE 1000 MG/VIAL ONE (21:54)
[2023-09-08] MEDS ORDERED: NA CHLORIDE 0.9% 1,000 ML ONE (21:54)
[2023-09-08] MEDS: NA CHLORIDE 0.9% 1,000 ML IV SCH (22:00)
[2023-09-08 22:58] LABS: Blood Morphology Comment NOT SEEN (NOT SEEN); Platelet Estimate ADEQ
[2023-09-09 02:01] VITALS: BMI 24.5
[2023-09-09] MEDS ORDERED: NA CHLORIDE 0.9% 1,000 ML ONE ×2 (02:28→16:47)
[2023-09-09] MEDS: ACETAMINOPHEN 325 MG TABLET PO PRN ×2 (04:48→21:12)
[2023-09-09] MEDS ORDERED: ACETAMINOPHEN 325 MG TABLET ONE (05:00)
[2023-09-09 05:57] LABS: Absolute Lymphocytes (CBC) 1.6 K/uL (0.7-4.9); Hematocrit 30.6 % (36.0-45.0); Lymphocytes % 11.2 % (15.3-44.8); MCV 91.6 fL (80-100); MPV 8.1 fL (7.6-11.3); Platelets 171 thou/uL (152-406); RBC Red Blood Cell Count 3.34 M/uL (3.86-4.86)
[2023-09-09 06:07] LABS: Magnesium 2.1 mg/dL (1.6-2.4); Phosphorus 2.4 mg/dL (2.5-4.9); Potassium 3.6 mEq/L (3.5-5.1)
[2023-09-09] MEDS: INSULIN REGULAR (HUMAN) 100 UNIT/ML SQ SCH ×4 (07:30→21:00)
--- NOTE | 2023-09-09 07:49 | EKG ---
Test Date: 2023-09-08 Test Time: 19:06:20 Director Of Content Marketing: LOGAN MEASUREMENT RESULTS: Intervals: Rate: 89 CO: 202 QRSD: 84 QT: 348 QTc: 423 [place]: P: 107 CO: 202 QRS: 90 T: -5 INTERPRETIVE STATEMENTS: Suspect arm lead reversal, interpretation assumes no reversal Sinus rhythm with marked sinus arrhythmia with occasional premature ventricular complexes Rightward axis Abnormal QRS-T angle, consider primary T wave abnormality Abnormal ECG Compared to ECG 04/11/2022 14:11:38 Ventricular premature complex(es) now present T-wave abnormality now present Atrial fibrillation no longer present ST (T wave) deviation no longer present Electronically Signed On 09-09-23 07:48:37 CDT by Serge Morales
[2023-09-09] MEDS ORDERED: PNEUMOCOCCAL VACCINE 0.5 ML IMVAC ONE (08:00)
[2023-09-09] MEDS: ENOXAPARIN 30 MG/0.3 ML SQ SCH (09:00)
[2023-09-09] MEDS ORDERED: ENOXAPARIN 40 MG/0.4 ML SQ SCH (09:00)
[2023-09-09] MEDS: NA CHLORIDE 0.9% 1,000 ML IV SCH (11:20)
[2023-09-09] MEDS ORDERED: INSULIN REGULAR (HUMAN) 100 UNIT/ML ONE (12:01)
[2023-09-09] MEDS: AMLODIPINE 10 MG TAB PO SCH (14:57)
[2023-09-09] MEDS: HYDRALAZINE HCL 25 MG TABLET PO SCH (14:58)
--- NOTE | 2023-09-09 15:10 | P.PN ---
Subjective Date of Service: 09/09/23 Chief Complaint: UTI. Patient appears to be slightly confused. She denies any new complaint. She has been afebrile. Physical Examination - Vital Signs Temperature: 98.6 F Blood Pressure: 165/73 Pulse: 86 Respirations: 16 Pulse Ox (%): 97 - Studies Laboratory Data (last 24 hrs) 09/08/23 09/08/23 09/08/23 20:05 19:30 19:30 WBC 16.00 H Hgb 11.8 L Hct 35.5 L Plt Count 163 PT 11.0 INR 1.00 APTT 38.0 H Sodium 133 L Potassium 3.9 BUN 26 H Creatinine 1.84 H Glucose 202 H Total Bilirubin 0.6 AST 27 ALT 44 Alkaline Phosphatase 97 Microbiology Data (last 24 hrs): 09/08/23 19:30 Nasopharnyx Influenza Type A Antigen Screen - Final 09/08/23 19:30 Nasopharnyx Influenza Type B Antigen Screen - Final Assessment And Plan - Plan Physical Exam General: Alert, Oriented x3 HEENT: Atraumatic, Normocephalic Neck: Supple Respiratory: Normal air movement Cardiovascular: Regular rate/rhythm, Normal S1 S2 Gastrointestinal: Soft and benign Musculoskeletal: No swelling Neurological: Normal speech, Normal strength at 5/5 x4 extr Diagnosis Acute metabolic encephalopathy Acute cystitis without hematuria Diabetes mellitus type 2 Chronic kidney disease Essential hypertension Plan: UTI/acute metabolic encephalopathy UA is significant and symptoms are consistent with significant UTI Continue IV Rocephin Follow urine culture. Diabetes type 2: ADA diet Insulin sliding scale Hypertension Resume home antihypertensive medications. Hyperlipidemia Continue statin therapy. Acute on chronic chronic kidney disease stage III: Serum creatinine trended down Continue to monitor renal function. DVT prophylaxis: Lovenox. CODE STATUS: Full code
[2023-09-09] MEDS: MAG CARB PO SCH (17:00)
[2023-09-09] MEDS: CALCIUM CARBONATE PO SCH (17:00)
[2023-09-09] MEDS ORDERED: MAGNESIUM OXIDE 400 MG TAB ONE (17:09)
[2023-09-09 17:27] VITALS: O2SAT 97
[2023-09-09] MEDS ORDERED: CEFTRIAXONE 1,000 MG in NA CHLORIDE 0.9% 50 ML IVPB SCH (20:00)
[2023-09-09] MEDS ORDERED: DOXAZOSIN 2 MG TAB PO SCH (21:00)
[2023-09-09] MEDS: HOME MED 1 EA UNK (Olmesartan Medoxomil [Benicar] 20 MG Tablet) PO SCH (21:00)
[2023-09-09] MEDS: carvediloL 25 MG TAB PO SCH (21:13)
[2023-09-09] MEDS: GABAPENTIN 100 MG CAP PO SCH (21:14)
[2023-09-10] MEDS: NA CHLORIDE 0.9% 1,000 ML IV SCH ×2 (00:40→06:09)
[2023-09-10 07:23] LABS: Absolute Lymphocytes (CBC) 1.3 K/uL (0.7-4.9); Hematocrit 34.4 % (36.0-45.0); Lymphocytes % 9.5 % (15.3-44.8); MPV 8.6 fL (7.6-11.3); Platelets 195 thou/uL (152-406); RBC Red Blood Cell Count 3.78 M/uL (3.86-4.86)
[2023-09-10] MEDS: INSULIN REGULAR (HUMAN) 100 UNIT/ML SQ SCH ×2 (07:30→11:30)
[2023-09-10 07:31] LABS: Potassium 3.7 mEq/L (3.5-5.1)
[2023-09-10] MEDS: CALCIUM CARBONATE PO SCH ×2 (08:00→12:00)
[2023-09-10] MEDS: MAG CARB PO SCH ×2 (08:00→12:00)
[2023-09-10] MEDS: HOME MED 1 EA UNK (Olmesartan Medoxomil [Benicar] 20 MG Tablet) PO SCH (09:00)
[2023-09-10] MEDS: HYDRALAZINE HCL 25 MG TABLET PO SCH (09:00)
[2023-09-10] MEDS: AMLODIPINE 10 MG TAB PO SCH (10:01)
[2023-09-10] MEDS: carvediloL 25 MG TAB PO SCH (10:01)
[2023-09-10] MEDS: GABAPENTIN 100 MG CAP PO SCH ×2 (10:01→14:03)
[2023-09-10] MEDS: ENOXAPARIN 30 MG/0.3 ML SQ SCH (10:02)
[2023-09-10] MEDS: ACETAMINOPHEN 325 MG TABLET PO PRN (11:26)
[2023-09-10 11:49] VITALS: BP 193/72; TEMP 98.7
[2023-09-10] MEDS ORDERED: HYDRALAZINE HCL 25 MG TABLET PO SCH (12:00)
--- NOTE | 2023-09-10 14:31 | P.DS ---
Admission Date: 09/08/23 Discharge Date: 09/10/23 Reason for Admission: UTI. Hospital Course: Jesi is a pleasant 77-year-old female with a past medical history significant for for hypertension, diabetes type 2, and hyperlipidemia who was admitted to the [facility] on 09/08/2023 for UTI. Jesi presented to the emergency room with complaint of fever, night sweats, and complaint of lethargy. Labs presented with a leukocytosis and UA was concerning for UTI. Jesi has tolerated IV antibiotics and PO diet. She is urinating without problems. On 09/10/2023, Jesi was seen on morning rounds and deemed medically stable for discharge. Jesi was discharged with instructions to schedule follow-up appointments with PCP. Jesi was provided prescriptions for Omnicef. The patient and family members were given the opportunity to ask questions and reported no further questions. Furthermore, all questions were answered to the best of my ability. A copy of this discharge summary will be sent to the above providers to facilitate continuity of care. Today, I personally spent 50 minutes with Jesi, of which greater than 50% of the time was spent in patient education, counseling, and coordination of care as described above. <Mely Anaya - Last Filed: 09/10/23 14:40> Admission Date: 09/08/23 Discharge Date: 09/11/23 Brief History of Present Illness: Diagnosis Acute metabolic encephalopathy Acute cystitis without hematuria-Enterobacter Diabetes mellitus type 2 Chronic kidney disease Essential hypertension Hospital Course: Patient symptoms resolved and clinically stable Urine culture grew Enterobacter sensitive to third-generation cephalosporin. She is deemed stable for discharge. She is discharged with oral cefdinir to continue treatment for UTI. <raymundo rojas - Last Filed: 09/11/23 17:37> Disposition: ROUTINE DISCHARGE Discharge Condition: FAIR Vital Signs/Physical Exam: Temp Pulse Resp BP Pulse Ox 98.7 F 70 17 193/72 H 97 09/10/23 11:48 09/10/23 11:48 09/10/23 11:48 09/10/23 11:48 09/10/23 11:48 Laboratory Data at Discharge: WBC 14.00 thou/uL (4.3-10.9) H 09/10/23 06:43 Hgb 11.5 g/dL (12.0-15.0) L D 09/10/23 06:43 Hct 34.4 % (36.0-45.0) L 09/10/23 06:43 Plt Count 195 thou/uL (152-406) 09/10/23 06:43 PT 11.0 SECONDS (9.5-12.5) 09/08/23 20:05 INR 1.00 09/08/23 20:05 APTT 38.0 SECONDS (24.3-36.9) H 09/08/23 20:05 Sodium 140 mEq/L (136-145) 09/10/23 06:43 Potassium 3.7 mEq/L (3.5-5.1) 09/10/23 06:43 BUN 19 mg/dL (7-18) H 09/10/23 06:43 Creatinine 1.46 mg/dL (0.55-1.02) H 09/10/23 06:43 Glucose 168 mg/dL (74-106) H 09/10/23 06:43 Phosphorus 2.4 mg/dL (2.5-4.9) L 09/09/23 05:40 Magnesium 2.1 mg/dL (1.6-2.4) 09/09/23 05:40 Total Bilirubin 0.6 mg/dL (0.2-1.0) 09/08/23 19:30 AST 27 U/L (15-37) 09/08/23 19:30 ALT 44 U/L (13-56) 09/08/23 19:30 Alkaline Phosphatase 97 U/L (45-117) 09/08/23 19:30 <Mely Anaya - Last Filed: 09/10/23 14:40> Vital Signs/Physical Exam: Temp Pulse Resp BP Pulse Ox 98.7 F 70 17 193/72 H 97 09/10/23 11:48 09/10/23 11:48 09/10/23 11:48 09/10/23 11:48 09/10/23 11:48 Laboratory Data at Discharge: WBC 14.00 thou/uL (4.3-10.9) H 09/10/23 06:43 Hgb 11.5 g/dL (12.0-15.0) L D 09/10/23 06:43 Hct 34.4 % (36.0-45.0) L 09/10/23 06:43 Plt Count 195 thou/uL (152-406) 09/10/23 06:43 PT 11.0 SECONDS (9.5-12.5) 09/08/23 20:05 INR 1.00 09/08/23 20:05 APTT 38.0 SECONDS (24.3-36.9) H 09/08/23 20:05 Sodium 140 mEq/L (136-145) 09/10/23 06:43 Potassium 3.7 mEq/L (3.5-5.1) 09/10/23 06:43 BUN 19 mg/dL (7-18) H 09/10/23 06:43 Creatinine 1.46 mg/dL (0.55-1.02) H 09/10/23 06:43 Glucose 168 mg/dL (74-106) H 09/10/23 06:43 Phosphorus 2.4 mg/dL (2.5-4.9) L 09/09/23 05:40 Magnesium 2.1 mg/dL (1.6-2.4) 09/09/23 05:40 Total Bilirubin 0.6 mg/dL (0.2-1.0) 09/08/23 19:30 AST 27 U/L (15-37) 09/08/23 19:30 ALT 44 U/L (13-56) 09/08/23 19:30 Alkaline Phosphatase 97 U/L (45-117) 09/08/23 19:30 <raymundo rojas - Last Filed: 09/11/23 17:37> Diet: Renal Activity: Fall precautions Time spent managing pt's care (in minutes): 55 <Mely Anaya - Last Filed: 09/10/23 14:40> <raymundo rojas - Last Filed: 09/11/23 17:37> Home Medications: Amlodipine Besylate 10 mg PO DAILY 03/24/22 Carvedilol [Coreg] 25 mg PO BID 03/24/22 Doxazosin [Cardura*] 2 mg PO BEDTIME 03/24/22 Hydralazine [Apresoline*] 25 mg PO BID* 03/24/22 Calcium Carbonate/Mag Carb [Magnebind 400 Tablet] 1 each PO TIDWM 30 Days #90 tablet 04/16/22 Glipizide [Glipizide Xl] 5 mg PO BID 09/09/23 Olmesartan Medoxomil [Benicar] 20 mg PO BID 09/09/23 Cefdinir [Cefdinir*] 300 mg PO BID #10 cap 09/10/23 Gabapentin [Neurontin*] 100 mg PO TID 30 Days #90 cap 09/10/23 New Medications: Cefdinir [Cefdinir*] 300 mg PO BID #10 cap Gabapentin [Neurontin*] 100 mg PO TID 30 Days #90 cap Physician Discharge Instructions: PROBLEM: UTI GOAL: Clear understanding of disease process INSTRUCTIONS: 1. Please call and schedule a follow-up appointment with your PCP in 3-5 days - Please follow-up with your PCP for medication refills/adjustments 2. Please call and schedule a follow-up appointment with junior qa analyst in 3-5 days 3. Renal diet as tolerated 4. Fall precaution, activity as tolerated and safe New medications Gabapentin: change to 100 mg Cefdinir 300 mg capsule by mouth daily for seven days Diet: Renal Activity: Fall precautions 1. Please call and schedule a follow-up appointment with your PCP in 3-5 days - Please follow-up with your PCP for medication refills/adjustments 2. Please call and schedule a follow-up appointment with junior qa analyst in 3-5 days 3. Renal diet as tolerated 4. Fall precaution, activity as tolerated and safe New medications Gabapentin: change to 100 mg Cefdinir 300 mg capsule by mouth daily for seven days Follow up with a Corporate Legal Secretary of your choice: ANNE PITTS DO [address] [place], [place] [address] EFREN CAMPOS MD [address], [address] [place], [place] [id number] ALEX DIAZ MD [address], [place] [address] [place], [place] [address] SOILA FINCH MD [address] [place], [place] [address] RITIKA MEREDITH MD [address], [place] [address] SOHAN SAENZ MD [address], [address] [place], [place] [id number] STEPHEN PRECIADO MD [address] [facility], [address] [place], [place] [address] BRITTON COOK MD [address] [place], [place] [address] DI BATISTA MD [address] [place] [address] [id number] Followup: Alverto Krause, DO [Primary Care Provider] -
== END 2023-09-10 15:00 | disposition home or self-care (01) ==
LOC: ER 18:16 → ERHOLD 21:45 → 2ND 09-09 17:04
PROVIDERS: ADMIT Internal Medicine Nephrology; ATTEND Internal Medicine
DX: N39.0 Urinary tract infection, site not specified (principal); G93.41 Metabolic encephalopathy; R53.1 Weakness; E78.5 Hyperlipidemia, unspecified; E11.22 Type 2 diabetes mellitus with diabetic chronic kidney disease; I12.9 Hypertensive chronic kidney disease with stage 1 through stage 4 chronic kidney disease, or unspecified chronic kidney disease; N18.30 Chronic kidney disease, stage 3 unspecified; Z88.1 Allergy status to other antibiotic agents
CPT/HCPCS: 36415; 71045; 80048; 80053; 81001; 82947; 83605; 83735; 84100; 85025; 85610; 85730; 87040; 87077; 87086; 87088; 87186; 87635; 87804; 93005; 96365; 96366; 96368; 99285; G0378; J0696; J1650; J1815; J7030; J7050

== ENCOUNTER → 2024-01-16 | Emergency (ER) | payer MEDICARE ==
[~2024-01-16] MED LIST: NA CHLORIDE 0.9% 500 ML ONE; ONDANSETRON 4 MG (ODT) TAB ONE; TRAMADOL HCL 50 MG TAB ONE; cloNIDine HCL 0.1 MG TAB ONE; methocarbamoL 750 MG TAB ONE
[2024-01-16 20:45] LABS: Absolute Basophils 0.1 K/uL (0-0.5); Absolute Lymphocytes (CBC) 1.9 K/uL (0.7-4.9); Hematocrit 29.5 % (36.0-45.0); Lymphocytes % 22.3 % (15.3-44.8); MCV 90.6 fL (80-100); MPV 7.7 fL (7.6-11.3); Platelets 191 thou/uL (152-406); RBC Red Blood Cell Count 3.26 M/uL (3.86-4.86)
[2024-01-16 20:57] LABS: Protime INR 1.46
[2024-01-16 21:12] LABS: Albumin 3.3 g/dL (3.4-5.0); Anion Gap 9.1 mEq/L (5.0-15.0); Bilirubin Direct 0.2 mg/dL (0-0.2); Bilirubin Indirect, Calculated 0.2 mg/dL (0.2-0.8); Bilirubin Total 0.4 mg/dL (0.2-1.0); Potassium 4.1 mEq/L (3.5-5.1); Protein, Total 6.7 g/dL (6.4-8.2); Troponin High Sensitivity 13.7 pg/mL (<58.9)
--- NOTE | 2024-01-16 21:13 | RAD REPORT ---
EXAM DESCRIPTION: RAD - Chest Single View - 01/16/2024 9:06 pm CLINICAL HISTORY: neck and l arm pain COMPARISON: <Comparisons> FINDINGS: Lines: None. Lungs: No evidence of edema or pneumonia. Pleural: No significant pleural effusions or pneumothorax. Cardiac: Stable cardiomegaly . Mediastinum: Within normal limits. Bones: No acute fractures. ACDF in the cervical spine. Other: None IMPRESSION: No acute cardiopulmonary disease.
--- NOTE | 2024-01-16 21:50 | RAD REPORT ---
EXAM DESCRIPTION: CT - Soft Tissue Neck Wo Contr CLINICAL HISTORY: acute left neck pain COMPARISON: No comparisons TECHNIQUE All CT scans are performed using dose optimization technique as appropriate and may includ e automated exposure control or mA/KV adjustment according to patient size. FINDINGS: Nasopharyngeal tissues are normal in appearance. Fossa Rosenmller are normal. Parapharyngeal fat triangles are symmetric. Tongue base structures are normal. Epiglottis and aryepiglottic folds are normal. Piriform sinuses are well aerated. The vocal cords are normal in appearance. Salivary glands are normal in appearance. Upper lung chahal are clear. Included intracranial contents are unremarkable. 8 mm right upper lobe pulmonary nodule which is only partially imaged . Status post C4 through C7 ACDF. Degenerative changes are present above and below the fusion levels. V arying degrees of neural foraminal narrowing. There is probably mild to moderate spinal stenosis at C 6-7 IMPRESSION: No acute soft tissue abnormality within the neck.
--- NOTE | 2024-01-16 22:26 | ER ---
Nurse's Notes [facility] Name: Jesi Lee Age: 78 yrs Sex: Female : 1945 Arrival Date: 01/16/2024 Time: 20:16 Bed 15 Private MD: Diagnosis: Acute neck pain, cervical degenerative disc disease, acute neck pain without radiculopathy Presentation: 01/15 20:24 Chief complaint: Patient states: left sided neck pain starting 2 hours ago with no km8 injury/trauma; pt took Tylenol and had some relief; denies CP or SOB. Coronavirus screen: Client denies travel out of the [place] in the last 14 days. Ebola Screen: No symptoms or risks identified at this time. Initial Sepsis Screen: Does the patient meet any 2 criteria? No. Patient's initial sepsis screen is negative. Does the patient have a suspected source of infection? No. Patient's initial sepsis screen is negative. Risk Assessment: Do you want to hurt yourself or someone else? Patient reports no desire to harm self or others. Onset of symptoms was January 16, 2024 at 18:20. 20:24 Method Of Arrival: Ambulatory km8 20:24 Acuity: RENETTA 3 km8 Triage Assessment: 20:25 General: Appears in no apparent distress. comfortable, Behavior is calm, cooperative, km8 appropriate for age. Pain: Complains of pain in left sternocleidomastoid Pain currently is 8 out of 10 on a pain scale. Quality of pain is described as aching. EENT: No signs and/or symptoms were reported regarding the EENT system. Neuro: Level of Consciousness is awake, alert, obeys commands, Oriented to person, place, time, situation, Appropriate for age. Cardiovascular: Denies chest pain, shortness of breath, Patient's skin is warm and dry. Respiratory: Airway is patent Respiratory effort is even, unlabored, Respiratory pattern is regular, symmetrical. GI: No signs and/or symptoms were reported involving the gastrointestinal system. : No signs and/or symptoms were reported regarding the genitourinary system. Derm: No signs and/or symptoms reported regarding the dermatologic system. Skin is intact, is healthy with good turgor, Skin is dry, Skin is pink, warm \T\ dry. normal, Skin temperature is warm. Musculoskeletal: Range of motion: intact in all extremities, Reports pain in left sternocleidomastoid. Historical: - Allergies: 20:25 Cipro; km8 - Home Meds: 20:55 sodium bicarbonate 650 mg Oral tablet 1 tab 2 times per day [Active]; gabapentin 600 mg tm6 oral Tablet, Extended Release 24 hr three times a day [Active]; olmesartan 40 mg oral tablet 1 tab daily [Active]; Eliquis 5 mg oral tablet 1 tab daily [Active]; glipizide 5 mg oral tablet 2 times per day [Active]; carvedilol 25 mg oral tablet 1 tab 2 times per day [Active]; hydralazine 50 mg Oral tablet 1 tab 2 times per day [Active]; atorvastatin 20 mg oral tablet 1 tab every day at bedtime [Active]; doxazosin 2 mg oral tablet 1 tab daily [Active]; aspirin 81 mg Oral capsule 1 cap daily [Active]; - PMHx: 20:25 Atrial fibrillation; Diabetes; Diverticulitis; Hypertension; ruptured bowel; km8 - PSHx: 20:25 bowel resection with colostomy and reversal; hysterectomy; km8 - Immunization history:: Client reports receiving the 2nd dose of the Covid vaccine, Flu vaccine is up to date. - Social history:: Smoking status: Patient denies any tobacco usage or history of. Patient/guardian denies using alcohol, street drugs. - Family history:: not pertinent. Screenin:33 [facility] ED Fall Risk Assessment (Adult) History of falling in the last 3 months, tm6 including since admission No falls in past 3 months (0 pts) Confusion or Disorientation No (0 pts) Intoxicated or Sedated No (0 pts) Impaired Gait No (0 pts) Mobility Assist Device Used No (0 pt) Altered Elimination No (0 pt) Score/Fall Risk Level 0 - 2 = Low Risk Oriented to surroundings, Maintained a safe environment. Abuse screen: Denies threats or abuse. Denies injuries from another. Nutritional screening: No deficits noted. Tuberculosis screening: No symptoms or risk factors identified. Assessment: 20:33 General: Appears in no apparent distress. Behavior is calm, cooperative. Pain: tm6 Complains of pain in neck and left sternocleidomastoid Pain does not radiate. Pain currently is 10 out of 10 on a pain scale. Quality of pain is described as sharp. Neuro: Level of Consciousness is awake, alert, obeys commands, Oriented to person, place, time, situation. Cardiovascular: Capillary refill < 3 seconds Patient's skin is warm and dry. Respiratory: Airway is patent Respiratory effort is even, unlabored, Respiratory pattern is regular, symmetrical. GI: Abdomen is flat, non-distended. : No signs and/or symptoms were reported regarding the genitourinary system. EENT: No signs and/or symptoms were reported regarding the EENT system. Derm: No signs and/or symptoms reported regarding the dermatologic system. Musculoskeletal: Reports pain in neck and left sternocleidomastoid. 21:33 Reassessment: Patient and/or family updated on plan of care and expected duration. Pain tm6 level reassessed. Patient is alert, oriented x 3, equal unlabored respirations, skin warm/dry/pink. 22:39 Reassessment: Patient and/or family updated on plan of care and expected duration. Pain tm6 level reassessed. Patient is alert, oriented x 3, equal unlabored respirations, skin warm/dry/pink. Vital Signs: 20:24 BP 193 / 71; Pulse 60; Resp 16; Temp 98.2(O); Pulse Ox 100% on R/A; Weight 58.97 kg 8 (R); Height 5 ft. 1 in. (R); Pain 5/10; 20:53 BP 214 / 70; Pulse 49; Pulse Ox 100% on R/A; Pain 10/10; tm6 21:09 BP 225 / 73; Pulse 61; Pulse Ox 99% on R/A; tm6 21:32 BP 169 / 59; Pulse 51; Pulse Ox 98% on R/A; Pain 4/10; tm6 22:39 BP 131 / 50; Pulse 52; Resp 14; Temp 97.7(O); Pulse Ox 99% on R/A; Pain 5/10; tm6 20:24 Body Mass Index 24.56 (58.97 kg, 154.94 cm) [facility] 20:24 Pain Scale: Adult km8 20:53 Pain Scale: Adult tm6 21:32 Pain Scale: Adult tm6 22:39 Pain Scale: Adult tm6 [place] Coma Score: 22:21 Eye Response: spontaneous(4). Motor Response: obeys commands(6). Verbal Response: sp4 oriented(5). Total: 15. NIH Stroke Scale Scores: 22:21 NIHSS Score: 0 sp4 ED Course: 20:21 Patient arrived in ED. gm2 20:25 Triage completed. km8 20:25 Arm band placed on right wrist. km8 20:28 Walker Majano MD is Attending Physician. sp4 20:31 Isai Powell, RN is Primary Nurse. tm6 20:33 Patient has correct armband on for positive identification. Placed in gown. Bed in low tm6 position. Call light in reach. Side rails up X2. Provided Education on: plan of care, use of call saucedo. Client placed on continuous cardiac and pulse oximetry monitoring. NIBP monitoring applied. site monitor on. Pulse ox on. NIBP on. 20:40 Basic Metabolic Panel Sent. kd3 20:40 CBC with Diff Sent. kd3 20:40 LFT's Sent. kd3 20:40 NT PRO-BNP Sent. kd3 20:40 PT-INR Sent. kd3 20:40 Troponin HS Sent. kd3 20:40 Inserted saline lock: 22 gauge in right forearm, using aseptic technique. Missed kd3 attempt(s): 22 gauge in right antecubital area. 20:52 Basic Metabolic Panel Sent. tm6 20:52 CBC with Diff Sent. tm6 20:52 LFT's Sent. tm6 20:52 NT PRO-BNP Sent. tm6 20:52 PT-INR Sent. tm6 20:52 Troponin HS Sent. tm6 20:53 EKG done, by ED staff, reviewed by Walker Majano MD. tm6 20:54 Door closed. Noise minimized. Warm blanket given. PO fluids given. tm6 21:08 XRAY Chest (1 view) In Process Unspecified. EDMS 21:10 Warm blanket given. tm6 21:43 Soft Tissue Neck Wo Contr In Process Unspecified. EDMS 22:40 No provider procedures requiring assistance completed. IV discontinued, intact, tm6 bleeding controlled, No redness/swelling at site. Pressure dressing applied. Administered Medications: 20:52 Drug: cloNIDine PO 0.2 mg PO once Route: PO; tm6 20:52 Drug: Methocarbamol PO 750 mg PO once Route: PO; tm6 20:52 Drug: traMADol PO 50 mg PO once Route: PO; tm6 20:52 Drug: Ondansetron PO 4 mg PO once Route: PO; tm6 20:52 Drug: NS 0.9% IV 500 ml IV at bolus once Route: IV; Rate: bolus; Site: right forearm; tm6 21:32 Follow up: Response: No adverse reaction; IV Status: Completed infusion; IV Intake: tm6 500ml 22:39 Drug: traMADol PO 50 mg PO once Route: PO; tm6 Medication: 20:33 VIS not applicable for this client. tm6 Intake: 21:32 IV: 500ml; Total: 500ml. tm6 Outcome: 22:25 Discharge ordered by MD. sp4 22:40 Discharged to home ambulatory, with family, tm6 22:40 Condition: stable 22:40 Discharge instructions given to patient, family, Instructed on discharge instructions, follow up and referral plans. medication usage, Demonstrated understanding of instructions, follow-up care, medications, Prescriptions given X 2, 22:40 Patient left the ED. tm6 NIH Stroke Scale - NIH Stroke Score Date: 01/16/2024 Time: 22:21 Total Score = 0 10. Dysarthria (speech clarity - read or repeat words) - 0(Normal) 11. Extinction and Inattention (visual/tactile/auditory/spatial/personal) - 0(No abnormality) 1a. Level of Consciousness (LOC) - 0(Alert) 1b. Level of Consciousness (LOC) (Month \T\ Age) - 0(Both) 1c. LOC Commands (Open \T\ Closes Eyes/Drupal Web Developer) - 0(Both) 2. Best Gaze (Lateral Gaze Paresis) - 0(Normal) 3. Visual Field Loss - 0(No visual loss) 4. Facial Palsy - 0(Normal) 5a. Left Arm: Motor (10-second hold) - 0(No drift) 5b. Right Arm: Motor (10-second hold) - 0(No drift) 6a. Left Leg: Motor (5-second hold - always test supine) - 0(No drift) 6b. Right Leg: Motor (5-second hold - always test supine) - 0(No drift) 7. Limb Ataxia (finger/nose \T\ heel/burk - test with eyes open) - 0(Absent) 8. Sensory Loss (pinprick arms/legs/face) - 0(Normal) 9. Best Language: Aphasia (description/naming/reading) - 0(No aphasia) Initials: sp4 Signatures: Dispatcher [employer] Michelle Zhang RN RN kd3 Walker Majano MD MD sp4 Vanna Aiken 2 Rossy Xiao RN RN km8 Isai Powell RN RN tm6 Corrections: (The following items were deleted from the chart) 20:28 20:24 BP 193 / 71; Pulse 60bpm; Resp 16bpm; Pulse Ox 100% RA; km8 km8
--- NOTE | 2024-01-16 22:26 | EDPHYS ---
Physician Documentation [facility] Name: Jesi Lee Age: 78 yrs Sex: Female : 1945 Arrival Date: 01/16/2024 Time: 20:16 Bed 15 Private MD: ED Physician Walker Majano HPI: 01/15 20:28 This 78 yrs old Female presents to ER via Ambulatory with complaints of High sp4 Blood Pressure, Neck pain. 20:44 78-year-old female presents with acute onset left neck pain traveling towards sp4 left shoulder starting 2 hours ago. Patient applied pain patch and took Tylenol from [facility] but this does not bring about relief. Past medical history includes atrial fibrillation, diabetes, diverticulitis, hypertension, history of bowel perforation. Historical: - Allergies: 20:25 Cipro; km8 - Home Meds: 20:55 sodium bicarbonate 650 mg Oral tablet 1 tab 2 times per day [Active]; gabapentin 600 mg tm6 oral Tablet, Extended Release 24 hr three times a day [Active]; olmesartan 40 mg oral tablet 1 tab daily [Active]; Eliquis 5 mg oral tablet 1 tab daily [Active]; glipizide 5 mg oral tablet 2 times per day [Active]; carvedilol 25 mg oral tablet 1 tab 2 times per day [Active]; hydralazine 50 mg Oral tablet 1 tab 2 times per day [Active]; atorvastatin 20 mg oral tablet 1 tab every day at bedtime [Active]; doxazosin 2 mg oral tablet 1 tab daily [Active]; aspirin 81 mg Oral capsule 1 cap daily [Active]; - PMHx: 20:25 Atrial fibrillation; Diabetes; Diverticulitis; Hypertension; ruptured bowel; km8 - PSHx: 20:25 bowel resection with colostomy and reversal; hysterectomy; km8 - Immunization history:: Client reports receiving the 2nd dose of the Covid vaccine, Flu vaccine is up to date. - Social history:: Smoking status: Patient denies any tobacco usage or history of. Patient/guardian denies using alcohol, street drugs. - Family history:: not pertinent. ROS: 20:44 Constitutional: Negative for fever, chills, and weight loss, Eyes: Negative for injury, sp4 pain, redness, and discharge, ENT: Negative for injury, pain, and discharge, Neck: Positive left neck pain with radiation towards left shoulder 20:44 All other systems are negative, Exam: 20:44 Constitutional: This is a well developed, well nourished patient who is awake, alert, sp4 and in no acute distress. Head/Face: Normocephalic, atraumatic. Eyes: Pupils equal round and reactive to light, extra-ocular motions intact. Lids and lashes normal. Conjunctiva and sclera are not injected. Cornea within normal limits. Periorbital areas with no swelling, redness, or edema. ENT: Nares patent. No nasal discharge, no septal abnormalities noted. Tympanic membranes are normal and external auditory canals are clear. Oropharynx with no redness, swelling, or masses, exudates, or evidence of obstruction, uvula midline. Mucous membranes moist. Neck: Trachea midline, no thyromegaly or masses palpated, and no cervical lymphadenopathy. Supple, full range of motion without nuchal rigidity, or vertebral point tenderness. Chest/axilla: Normal chest wall appearance and motion. Nontender with no deformity. No lesions are appreciated. Cardiovascular: Regular rate and rhythm with a normal S1 and S2. No gallops, murmurs, or rubs. Normal PMI, no JVD. No pulse deficits. Respiratory: Lungs have equal breath sounds bilaterally, clear to auscultation and percussion. No rales, rhonchi or wheezes noted. No increased work of breathing, no retractions or nasal flaring. Abdomen/GI: Soft, with normal bowel sounds. No distension or tympany. No guarding or rebound. No evidence of tenderness throughout. Back: No spinal tenderness. No costovertebral tenderness. Skin: Warm, dry with normal turgor. Normal color with no rashes, no lesions, and no evidence of cellulitis. MS/ Extremity: Pulses equal, no cyanosis. Neurovascular intact. Full, normal range of motion. Neuro: Awake and alert, GCS 15, oriented to person, place, time, and situation. Cranial nerves II-XII grossly intact. Motor strength 5/5 in all extremities. Sensory grossly intact. Psych: Awake, alert, with orientation to person, place and time. Behavior, mood, and affect are within normal limits 22:29 ECG was reviewed by the Attending Physician. There is EKG at 2031, there is sinus sp4 bradycardia at the rate of 51 with first-degree AV block otherwise normal Vital Signs: 20:24 BP 193 / 71; Pulse 60; Resp 16; Temp 98.2(O); Pulse Ox 100% on R/A; Weight 58.97 kg km8 (R); Height 5 ft. 1 in. (R); Pain 5/10; 20:53 BP 214 / 70; Pulse 49; Pulse Ox 100% on R/A; Pain 10/10; tm6 21:09 BP 225 / 73; Pulse 61; Pulse Ox 99% on R/A; tm6 21:32 BP 169 / 59; Pulse 51; Pulse Ox 98% on R/A; Pain 4/10; tm6 22:39 BP 131 / 50; Pulse 52; Resp 14; Temp 97.7(O); Pulse Ox 99% on R/A; Pain 5/10; tm6 20:24 Body Mass Index 24.56 (58.97 kg, 154.94 cm) [facility] 20:24 Pain Scale: Adult [facility] 20:53 Pain Scale: Adult 6 21:32 Pain Scale: Adult 6 22:39 Pain Scale: Adult tm6 NIH Stroke Scale Scores: 22:21 NIHSS Score: 0 sp4 [place] Coma Score: 22:21 Eye Response: spontaneous(4). Motor Response: obeys commands(6). Verbal Response: sp4 oriented(5). Total: 15. MDM: 20:30 Patient medically screened. sp4 21:57 Data reviewed: vital signs, nurses notes. ED course: EXAM DESCRIPTION: RAD - Chest sp4 Single View - 01/16/2024 9:06 pm CLINICAL HISTORY: neck and l arm pain COMPARISON: FINDINGS: Lines: None. Lungs: No evidence of edema or pneumonia. Pleural: No significant pleural effusions or pneumothorax. Cardiac: Stable cardiomegaly . Mediastinum: Within normal limits. Bones: No acute fractures. ACDF in the cervical spine. Other: None IMPRESSION: No acute cardiopulmonary disease. . ED course: EXAM DESCRIPTION: CT - Soft Tissue Neck Wo Contr CLINICAL HISTORY: acute left neck pain COMPARISON: No comparisons TECHNIQUE All CT scans are performed using dose optimization technique as appropriate and may include automated exposure control or mA/KV adjustment according to patient size. FINDINGS: Nasopharyngeal tissues are normal in appearance. Fossa Rosenm?ller are normal. Parapharyngeal fat triangles are symmetric. Tongue base structures are normal. Epiglottis and aryepiglottic folds are normal. Piriform sinuses are well aerated. The vocal cords are normal in appearance. Salivary glands are normal in appearance. Upper lung chahal are clear. Included intracranial contents are unremarkable. 8 mm right upper lobe pulmonary nodule which is only partially imaged . Status post C4 through C7 ACDF. Degenerative changes are present above and below the fusion levels. Varying degrees of neural foraminal narrowing. There is probably mild to moderate spinal stenosis at C6-7 IMPRESSION: No acute soft tissue abnormality within the neck. . 22:21 Differential diagnosis: hypertensive crisis, Malignant HTN, CVA. Consideration of sp4 Admission/Observation Escalation of care including admission/observation considered. ED course: EXAM DESCRIPTION: CT - Soft Tissue Neck Wo Contr CLINICAL HISTORY: acute left neck pain COMPARISON: No comparisons TECHNIQUE All CT scans are performed using dose optimization technique as appropriate and may include automated exposure control or mA/KV adjustment according to patient size. FINDINGS: Nasopharyngeal tissues are normal in appearance. Fossa Rosenm?ller are normal. Parapharyngeal fat triangles are symmetric. Tongue base structures are normal. Epiglottis and aryepiglottic folds are normal. Piriform sinuses are well aerated. The vocal cords are normal in appearance. Salivary glands are normal in appearance. Upper lung chahal are clear. Included intracranial contents are unremarkable. 8 mm right upper lobe pulmonary nodule which is only partially imaged . Status post C4 through C7 ACDF. Degenerative changes are present above and below the fusion levels. Varying degrees of neural foraminal narrowing. There is probably mild to moderate spinal stenosis at C6-7 IMPRESSION: No acute soft tissue abnormality within the neck. 22:22 ED course: Neck has a revealed prior C4-C7 ACDF. Degenerative changes present above and sp4 below fusion levels. Varying degree of neuroforaminal narrowing. Patient has no sign of acute spinal nerve compression. Bilateral arm strength is normal. Patient has chronic numbness of bilateral hands. ACDF was accomplished 4 years ago by the surgeon here in [place]. Patient was advised to see her Neurosurgeon Dr. Kwan for outpatient follow-up in 2 to 3 weeks. Also patient's creatinine is elevated above baseline but not critical. Will advise follow-up with primary care physician for repeat creatinine in 2 to 3 weeks.. 01/15 20:29 Order name: Basic Metabolic Panel; Complete Time: 21:24 sp4 01/15 20:29 Order name: CBC with Diff; Complete Time: 21:24 sp4 01/15 20:29 Order name: LFT's; Complete Time: 21:24 sp4 01/15 20:29 Order name: NT PRO-BNP; Complete Time: 21:24 sp4 01/15 20:29 Order name: PT-INR; Complete Time: 21:24 sp4 01/15 20:29 Order name: Troponin HS; Complete Time: 21:24 sp4 01/15 20:29 Order name: XRAY Chest (1 view); Complete Time: 21:24 sp4 01/15 21:27 Order name: Soft Tissue Neck Wo Contr; Complete Time: 21:57 EDMS 01/15 20:29 Order name: EKG; Complete Time: 20:30 sp4 01/15 20:29 Order name: Cardiac monitoring; Complete Time: 20:52 sp4 01/15 20:29 Order name: EKG - Nurse/Tech; Complete Time: 20:52 sp4 01/15 20:29 Order name: IV Saline Lock; Complete Time: 20:40 sp4 01/15 20:29 Order name: Labs collected and sent; Complete Time: 20:40 sp4 01/15 20:29 Order name: O2 Per Protocol; Complete Time: 20:33 sp4 01/15 20:29 Order name: O2 Sat Monitoring; Complete Time: 20:33 sp4 EC:29 Rate is 51 beats/min. Rhythm is regular, Sinus bradycardia. QRS Adams is Normal. [place] sp4 interval is prolonged. QRS interval is normal. QT interval is normal. No Q waves. T waves are Normal. No ST changes noted. Clinical impression: No evidence of ischemia. Interpreted by me. Reviewed by me. Administered Medications: 20:52 Drug: cloNIDine PO 0.2 mg PO once Route: PO; tm6 20:52 Drug: Methocarbamol PO 750 mg PO once Route: PO; tm6 20:52 Drug: traMADol PO 50 mg PO once Route: PO; tm6 20:52 Drug: Ondansetron PO 4 mg PO once Route: PO; tm6 20:52 Drug: NS 0.9% IV 500 ml IV at bolus once Route: IV; Rate: bolus; Site: right forearm; tm6 21:32 Follow up: Response: No adverse reaction; IV Status: Completed infusion; IV Intake: tm6 500ml 22:39 Drug: traMADol PO 50 mg PO once Route: PO; tm6 Disposition Summary: 01/16/24 22:25 Discharge Ordered Problem: new sp4 Symptoms: have improved sp4 Condition: Stable sp4 Diagnosis - Acute neck pain, cervical degenerative disc disease, acute neck pain without sp4 radiculopathy Followup: sp4 - With: Private Physician - When: 10 - 14 days - Reason: Recheck today's complaints Discharge Instructions: - Discharge Summary Sheet sp4 - Spinal Stenosis, [id number] sp4 Forms: - Patient Portal Instructions sp4 Prescriptions: - Tramadol 50 mg Oral tablet - take 1 tablet ORAL route every 8 hours as needed; 25 tablet; Refills: 0, sp4 Product Selection Permitted - methocarbamol 750 mg Oral tablet - take 1 tablet ORAL route every 8 hours; 60 tablet; Refills: 0, Product sp4 Selection Permitted NIH Stroke Scale - NIH Stroke Score Date: 01/16/2024 Time: 22:21 Total Score = 0 10. Dysarthria (speech clarity - read or repeat words) - 0(Normal) 11. Extinction and Inattention (visual/tactile/auditory/spatial/personal) - 0(No abnormality) 1a. Level of Consciousness (LOC) - 0(Alert) 1b. Level of Consciousness (LOC) (Month \T\ Age) - 0(Both) 1c. LOC Commands (Open \T\ Closes Eyes/Charge Auditor) - 0(Both) 2. Best Gaze (Lateral Gaze Paresis) - 0(Normal) 3. Visual Field Loss - 0(No visual loss) 4. Facial Palsy - 0(Normal) 5a. Left Arm: Motor (10-second hold) - 0(No drift) 5b. Right Arm: Motor (10-second hold) - 0(No drift) 6a. Left Leg: Motor (5-second hold - always test supine) - 0(No drift) 6b. Right Leg: Motor (5-second hold - always test supine) - 0(No drift) 7. Limb Ataxia (finger/nose \T\ heel/burk - test with eyes open) - 0(Absent) 8. Sensory Loss (pinprick arms/legs/face) - 0(Normal) 9. Best Language: Aphasia (description/naming/reading) - 0(No aphasia) Initials: sp4 Signatures: Dispatcher [employer] EDMS Walker Majano MD MD sp4 Rossy Xiao RN RN km8 Isai Powell RN RN tm6 Corrections: (The following items were deleted from the chart) 21:27 20:30 Soft Tissue Neck W/Contr+[id number].BRZ ordered. EDMS EDMS
[2024-01-16 23:12] VITALS: BP 131/50; TEMP 97.7; O2SAT 99
== END ==
LOC: ER 20:16
DX: M50.80 Other cervical disc disorders, unspecified cervical region (principal); E11.9 Type 2 diabetes mellitus without complications; I10 Essential (primary) hypertension; I48.91 Unspecified atrial fibrillation; Z79.01 Long term (current) use of anticoagulants; Z79.82 Long term (current) use of aspirin; Z88.1 Allergy status to other antibiotic agents
CPT/HCPCS: 85025; 80048; 36415; 85610; 80076; 84484; 83880; 70490; 71045; 96360; 99285; Q0162; J7040

== ENCOUNTER 2024-01-22 11:05 | Inpatient (IN) | payer MEDICARE ==
--- NOTE | 2024-01-22 12:04 | RAD REPORT ---
[facility] 11[facility]57 [facility] CLINICAL HISTORY: CHEST PAIN COMPARISON: Chest Single View dated 01/16/2024; Chest Single View dated 09/08/2023; Chest Single View dated 04/09/2022; Chest Single View dated 04/08/2022 TECHNIQUE: Portable AP view of the chest. FINDINGS: The lungs are clear. No pneumothorax or effusion. The cardiomediastinal contours are unre markable. IMPRESSION: No acute cardiopulmonary process.
[2024-01-22 12:10] LABS: Absolute Basophils 0.1 K/uL (0-0.5); Absolute Eosinophils 0.1 K/uL (0-0.5); Absolute Lymphocytes (CBC) 1.9 K/uL (0.7-4.9); Absolute Monocytes 0.4 K/uL (0.1-1.3); Absolute Neutrophil 5.1 K/uL (1.8-8.0); Basophils % 0.8 % (0-1.3); Eosinophils % 1.4 % (0-4.4); Hemoglobin 11.5 g/dL (12.0-15.0); Lymphocytes % 24.7 % (15.3-44.8); MCH 30.7 pg (27.0-35.0); MCHC 33.8 g/dL (32.0-36.0); MCV 90.9 fL (80-100); MPV 8.5 fL (7.6-11.3); Monocytes % 5.3 % (3.3-12.3); Neutrophils % 67.8 % (41.7-73.7); Platelets 220 thou/uL (152-406); RBC Red Blood Cell Count 3.74 M/uL (3.86-4.86); Red Cell Distribution Width 13.4 % (12.1-15.2)
--- NOTE | 2024-01-22 12:19 | RAD REPORT ---
EXAM DESCRIPTION: CT - Head Brain Wo Cont - 01/22/2024 11:34 am CLINICAL HISTORY: HEADACHE COMPARISON: Head Brain Wo Cont dated 04/08/2022; Head Brain Wo Cont dated 05/12/2021 TECHNIQUE: Noncontrast head CT images were obtained without IV contrast. Multiplanar reformats were generated and reviewed. All CT scans are performed using dose optimization technique as appropriate and may include automated exposure control or mA/KV adjustment according to patient size. FINDINGS: No intracranial hemorrhage, mass, or edema. Midline structures are unremarkable. Normal ventricular caliber for age. Lim-white matter differentiation is preserved, without evidence of acute infarct. No abnormal extra- axial fluid collections. Mastoid air cells and visualized portions of the paranasal sinuses are clear. No acute bony findings. IMPRESSION: No evidence of an acute intracranial process.
[2024-01-22] MEDS ORDERED: HYDRALAZINE HCL 20 MG/ML VIAL ONE (12:37)
[2024-01-22 13:21] LABS: PT Prothrombin Time 16.4 SECONDS (9.5-12.5); Protime INR 1.51
[2024-01-22 13:38] LABS: Albumin 3.3 g/dL (3.4-5.0); Albumin/Globulin Ratio 0.9 (1.1-1.8); Anion Gap 10.9 mEq/L (5.0-15.0); Bilirubin Direct 0.2 mg/dL (0-0.2); Bilirubin Indirect, Calculated 0.3 mg/dL (0.2-0.8); Bilirubin Total 0.5 mg/dL (0.2-1.0); Globulin 3.5 g/dL (2.3-3.5); Magnesium 2.3 mg/dL (1.6-2.4); Potassium 3.9 mEq/L (3.5-5.1); Protein, Total 6.8 g/dL (6.4-8.2); Troponin High Sensitivity 14.4 pg/mL (<58.9)
--- NOTE | 2024-01-22 13:56 | EDPHYS ---
Physician Documentation [facility] Name: Jesi Lee Age: 78 yrs Sex: Female : 1945 Arrival Date: 01/22/2024 Time: 11:05 Bed 17 Private MD: [facility] ED Physician Jatinder Sandhu HPI: 01/21 16:02 This 78 yrs old Female presents to ER via Ambulatory with complaints of High rt Blood Pressure, Dizziness. 16:02 Patient presents to the ED with hypertension, headache, dizziness. Patient reports rt compliance with her antihypertensives. States that he went to her primary care office today, was found to be significantly hypertensive, sent to the ED for further evaluation. Denies chest pain, shortness of breath symptoms are severe in severity, no other aggravating or alleviating factors.. Historical: - Allergies: 11:19 Cipro; iw - Home Meds: 11:19 aspirin 81 mg Oral capsule 1 cap daily [Active]; atorvastatin 20 mg Oral tablet 1 tab iw every day at bedtime [Active]; carvedilol 25 mg Oral tablet 1 tab 2 times per day [Active]; doxazosin 2 mg Oral tablet 1 tab daily [Active]; Eliquis 5 mg Oral tablet 1 tab daily [Active]; gabapentin 600 mg Oral Tablet three times a day [Active]; glipizide 5 mg Oral tablet 2 times per day [Active]; hydralazine 50 mg Oral tablet 1 tab 2 times per day [Active]; olmesartan 40 mg Oral tablet 1 tab daily [Active]; sodium bicarbonate 650 mg Oral tablet 1 tab 2 times per day [Active]; - PMHx: 11:19 Diabetes; Diverticulitis; Hypertension; ruptured bowel; Atrial fibrillation; iw - PSHx: 11:19 bowel resection with colostomy and reversal; hysterectomy; iw - Immunization history:: Adult Immunizations up to date. - Social history:: Smoking status: Patient denies any tobacco usage or history of. - Family history:: not pertinent. ROS: 16:02 Constitutional: Negative for fever, chills, and weight loss, Cardiovascular: Negative rt for chest pain, palpitations, and edema, Respiratory: Negative for shortness of breath, cough, wheezing, and pleuritic chest pain, Abdomen/GI: Negative for abdominal pain, nausea, vomiting, diarrhea, and constipation, MS/Extremity: Negative for injury and deformity, Skin: Negative for injury, rash, and discoloration, Psych: Negative for depression, anxiety, suicide ideation, homicidal ideation, and hallucinations, 16:02 Neuro: Positive for dizziness, headache, Exam: 16:02 Constitutional: This is a well developed, well nourished patient who is awake, alert, rt and in no acute distress. Head/Face: Normocephalic, atraumatic. Chest/axilla: Normal chest wall appearance and motion. Nontender with no deformity. No lesions are appreciated. Cardiovascular: Regular rate and rhythm with a normal S1 and S2. No gallops, murmurs, or rubs. Normal PMI, no JVD. No pulse deficits. Respiratory: Lungs have equal breath sounds bilaterally, clear to auscultation and percussion. No rales, rhonchi or wheezes noted. No increased work of breathing, no retractions or nasal flaring. Abdomen/GI: Soft, non-tender, with normal bowel sounds. No distension or tympany. No guarding or rebound. No evidence of tenderness throughout. Skin: Warm, dry with normal turgor. Normal color with no rashes, no lesions, and no evidence of cellulitis. MS/ Extremity: Pulses equal, no cyanosis. Neurovascular intact. Full, normal range of motion. Neuro: Awake and alert, GCS 15, oriented to person, place, time, and situation. Cranial nerves II-XII grossly intact. Motor strength 5/5 in all extremities. Sensory grossly intact. Cerebellar exam normal. Normal gait. Psych: Awake, alert, with orientation to person, place and time. Behavior, mood, and affect are within normal limits. 16:02 ECG was reviewed by the Attending Physician. Vital Signs: 11:17 BP 248 / 68; Pulse 51; Resp 16; Temp 97.1; Pulse Ox 100% on R/A; Weight 57.15 kg; iw Height 5 ft. 1 in. ; 12:34 BP 228 / 69; Pulse 69; Resp 18; Pulse Ox 97% on R/A; tl4 13:00 BP 198 / 57; Pulse 71; Resp 16; Pulse Ox 98% on R/A; Pain 0/10; tl4 13:27 BP 196 / 58; Pulse 73; Resp 18; Pulse Ox 99% on R/A; tl4 14:00 BP 186 / 67; Pulse 61; Resp 12; Pulse Ox 98% on R/A; tl4 14:30 BP 186 / 62; Pulse 62; Resp 11; Pulse Ox 98% ; Pain 0/10; tl4 11:17 Body Mass Index 23.81 (57.15 kg, 154.94 cm) iw 13:00 Pain Scale: Adult tl4 14:30 Pain Scale: Adult tl4 Travis Coma Score: 12:34 Eye Response: spontaneous(4). Motor Response: obeys commands(6). Verbal Response: tl4 oriented(5). Total: 15. MDM: 11:26 Patient medically screened. rt 16:02 Differential diagnosis: hypertensive crisis, intracerebral hemorrhage. Differential rt diagnosis: hypertensive crisis. Data reviewed: vital signs, nurses notes, lab test result(s), EKG, radiologic studies. Consideration of Admission/Observation Patient was admitted/placed on observation. Management of patient was discussed with the following: Hospitalist: Agrees to admit. I considered the following discharge prescriptions or medication management in the emergency department Medications were administered in the Emergency Department. See MAR. Independent interpretation of the following test(s) in the Emergency Department CT Scan: My interpretation is No intracranial hemorrhage seen on interpretation of CT scan images. Care significantly affected by the following chronic conditions: Hypertension. Counseling: I had a detailed discussion with the patient and/or guardian regarding the historical points, exam findings, and any diagnostic results supporting the discharge/admit diagnosis, lab results, radiology results, the need for further work-up and treatment in the hospital. Response to treatment: the patient's symptoms have markedly improved after treatment. 01/21 11:26 Order name: Basic Metabolic Panel; Complete Time: 13:40 rt 01/21 11:26 Order name: CBC with Diff; Complete Time: 12:36 rt 01/21 11:26 Order name: LFT's; Complete Time: 13:40 rt 01/21 11:26 Order name: Magnesium; Complete Time: 13:40 rt 01/21 11:26 Order name: NT PRO-BNP; Complete Time: 13:40 rt 01/21 11:26 Order name: PT-INR; Complete Time: 13:34 rt 01/21 11:26 Order name: Troponin HS; Complete Time: 13:40 rt 01/21 15:25 Order name: Thyroid Stimulating Hormone EDMS 03/14 15:25 Order name: CBC with Automated Diff EDMS 01/21 15:25 Order name: Urinalysis w/ reflexes EDMS 01/21 15:26 Order name: CBC with Automated Diff EDMS 01/21 15:26 Order name: CBC with Automated Diff EDMS 01/21 15:26 Order name: Comprehensive Metabolic Panel EDMS 01/21 15:26 Order name: Comprehensive Metabolic Panel EDMS 01/21 15:26 Order name: Comprehensive Metabolic Panel EDMS 01/21 15:26 Order name: Lipid Profile EDMS 01/21 15:26 Order name: Lipid Profile EDMS 01/21 15:26 Order name: Magnesium EDMS 01/21 15:26 Order name: Magnesium EDMS 01/21 15:26 Order name: Troponin High Sensitivity EDMS 01/21 15:26 Order name: Troponin High Sensitivity EDMS 01/21 15:26 Order name: Troponin High Sensitivity EDMS 01/21 11:26 Order name: XRAY Chest (1 view); Complete Time: 12:36 rt 01/21 11:26 Order name: CT Head Brain wo Cont; Complete Time: 12:36 rt 01/21 15:26 Order name: Carotid Artery Bilateral; Complete Time: 16:26 EDMS 01/21 15:26 Order name: Extremity Venous Uni Ltd; Complete Time: 16:26 EDMS 01/21 11:26 Order name: EKG; Complete Time: 11:26 rt 01/21 11:26 Order name: Cardiac monitoring; Complete Time: 12:33 rt 01/21 11:26 Order name: EKG - Nurse/Tech; Complete Time: 15:00 rt 01/21 11:26 Order name: IV Saline Lock; Complete Time: 12:02 rt 01/21 11:26 Order name: Labs collected and sent; Complete Time: 12:02 rt 01/21 11:26 Order name: O2 Per Protocol; Complete Time: 12:33 rt 01/21 11:26 Order name: O2 Sat Monitoring; Complete Time: 12:33 rt 01/21 12:12 Order name: Labs - recollect needed: GREEN TOP; Complete Time: 13:00 bc6 EC:02 Rate is 62 beats/min. Rhythm is regular, 1st Degree Block with No ectopy. QRS [place] is rt Normal. [place] interval is normal. QRS interval is normal. QT interval is normal. No Q waves. T waves are Normal. No ST changes noted. Interpreted by me. Administered Medications: 13:01 Drug: hydrALAZINE IVP 20 mg IVP once Route: IVP; Site: right forearm; tl4 15:00 Follow up: Response: No adverse reaction; Blood pressure is lowered tl4 Disposition Summary: 01/22/24 13:55 Hospitalization Ordered Notes: Hospitalization Status: Observation rt Provider: Marylou Cooper rt Condition: Fair rt Problem: new rt Symptoms: have improved rt Bed/Room Type: Standard rt Location: Telemetry/MedSurg (Inpatient)(01/22/24 15:36) bc6 Room Assignment: 201(01/22/24 15:36) bc6 Diagnosis - Hypertensive emergency rt Forms: - Medication Reconciliation Form rt - SBAR form rt - Leadership Thank You Letter rt Critical care time excluding procedures: 16:02 Critical care time: Bedside Care: 30 minutes, Consultation: 5 minutes. Total time: 35 rt minutes Signatures: Dispatcher [employer] EDBhavna Mcdonnell, RN RN Jatinder Sandhu MD MD rt Clemencia Fu bc6 Caleb Denson RN RN tl4 Corrections: (The following items were deleted from the chart) 15:30 13:55 Telemetry/MedSurg (observation) rt bc6 15:30 13:55 rt bc6 15:36 15:30 [facility] ER HOLD bc6 bc6 15:36 15:30 ERHOLD- bc6 bc6
--- NOTE | 2024-01-22 13:56 | ER ---
Nurse's Notes [facility] Name: Jesi Lee Age: 78 yrs Sex: Female : 1945 Arrival Date: 01/22/2024 Time: 11:05 Bed 17 Private MD: Alverto Krause Diagnosis: Hypertensive emergency Presentation: 01/21 11:17 Chief complaint: Parent and/or Guardian states: was sent from PCP office for high BP, iw it was 210 systolic , she takes BP meds but it's not helping she is feeling light headed and dizzy and has a mild headache. Coronavirus screen: At this time, the client does not indicate any symptoms associated with coronavirus-19. Ebola Screen: Patient negative for fever greater than or equal to 101.5 degrees Fahrenheit, and additional compatible Ebola Virus Disease symptoms Patient denies exposure to infectious person. Patient denies travel to an Ebola-affected area in the 21 days before illness onset. No symptoms or risks identified at this time. Initial Sepsis Screen: Does the patient meet any 2 criteria? No. Patient's initial sepsis screen is negative. Does the patient have a suspected source of infection? No. Patient's initial sepsis screen is negative. Risk Assessment: Do you want to hurt yourself or someone else? Patient reports no desire to harm self or others. Onset of symptoms was January 22, 2024. 11:17 Method Of Arrival: Ambulatory iw 11:17 Acuity: RENETTA 2 iw Historical: - Allergies: 11:19 Cipro; iw - Home Meds: 11:19 aspirin 81 mg Oral capsule 1 cap daily [Active]; atorvastatin 20 mg Oral tablet 1 tab iw every day at bedtime [Active]; carvedilol 25 mg Oral tablet 1 tab 2 times per day [Active]; doxazosin 2 mg Oral tablet 1 tab daily [Active]; Eliquis 5 mg Oral tablet 1 tab daily [Active]; gabapentin 600 mg Oral Tablet three times a day [Active]; glipizide 5 mg Oral tablet 2 times per day [Active]; hydralazine 50 mg Oral tablet 1 tab 2 times per day [Active]; olmesartan 40 mg Oral tablet 1 tab daily [Active]; sodium bicarbonate 650 mg Oral tablet 1 tab 2 times per day [Active]; - PMHx: 11:19 Diabetes; Diverticulitis; Hypertension; ruptured bowel; Atrial fibrillation; iw - PSHx: 11:19 bowel resection with colostomy and reversal; hysterectomy; iw - Immunization history:: Adult Immunizations up to date. - Social history:: Smoking status: Patient denies any tobacco usage or history of. - Family history:: not pertinent. Screenin:05 [facility] ED Fall Risk Assessment (Adult) History of falling in the last 3 months, tl4 including since admission No falls in past 3 months (0 pts) Confusion or Disorientation No (0 pts) Intoxicated or Sedated No (0 pts) Impaired Gait No (0 pts) Mobility Assist Device Used No (0 pt) Altered Elimination No (0 pt) Score/Fall Risk Level 0 - 2 = Low Risk Oriented to surroundings, Maintained a safe environment, Educated pt \T\ family on fall prevention, incl call for assistance when getting out of bed, Assessed \T\ reinforced patient's understanding of fall precautions, Hourly rounding (assess needs \T\ fall precautionary measures) done, Used ambulatory aids as needed (educated on \T\ assisted with), Used gait belt as appropriate. Abuse screen: Denies threats or abuse. Denies injuries from another. Nutritional screening: No deficits noted. Tuberculosis screening: No symptoms or risk factors identified. Assessment: 13:01 General: Appears in no apparent distress. Behavior is calm, cooperative. Pain: Denies tl4 pain. Neuro: Level of Consciousness is awake, alert, obeys commands, Oriented to person, place, time, situation, Emergency Dispatcher are equal bilaterally Moves all extremities. Speech is normal, Facial symmetry appears normal, Pupils are PERRLA, Reports dizziness, Denies weakness blurred vision numbness headache. Cardiovascular: No deficits noted. Denies chest pain, lightheadedness, palpitations, Capillary refill < 3 seconds Patient's skin is warm and dry. Respiratory: No deficits noted. Airway is patent Respiratory effort is even, unlabored, Respiratory pattern is regular, symmetrical, Breath sounds are clear bilaterally. GI: No deficits noted. No signs and/or symptoms were reported involving the gastrointestinal system. : No deficits noted. No signs and/or symptoms were reported regarding the genitourinary system. EENT: No deficits noted. No signs and/or symptoms were reported regarding the EENT system. 14:12 Reassessment: No changes from previously documented assessment. Patient and/or family tl4 updated on plan of care and expected duration. Pain level reassessed. Patient is alert, oriented x 3, equal unlabored respirations, skin warm/dry/pink. Pt states she feels the same. 15:06 Reassessment: No changes from previously documented assessment. Patient and/or family tl4 updated on plan of care and expected duration. Pain level reassessed. Patient is alert, oriented x 3, equal unlabored respirations, skin warm/dry/pink. Vital Signs: 11:17 BP 248 / 68; Pulse 51; Resp 16; Temp 97.1; Pulse Ox 100% on R/A; Weight 57.15 kg; iw Height 5 ft. 1 in. ; 12:34 BP 228 / 69; Pulse 69; Resp 18; Pulse Ox 97% on R/A; tl4 13:00 BP 198 / 57; Pulse 71; Resp 16; Pulse Ox 98% on R/A; Pain 0/10; tl4 13:27 BP 196 / 58; Pulse 73; Resp 18; Pulse Ox 99% on R/A; tl4 14:00 BP 186 / 67; Pulse 61; Resp 12; Pulse Ox 98% on R/A; tl4 14:30 BP 186 / 62; Pulse 62; Resp 11; Pulse Ox 98% ; Pain 0/10; tl4 11:17 Body Mass Index 23.81 (57.15 kg, 154.94 cm) iw 13:00 Pain Scale: Adult tl4 14:30 Pain Scale: Adult tl4 Vitals: 12:34 Cardiac Rhythm Assessment Regular Sinus rhythm. tl4 Travis Coma Score: 12:34 Eye Response: spontaneous(4). Motor Response: obeys commands(6). Verbal Response: tl4 oriented(5). Total: 15. ED Course: 11:07 Patient arrived in ED. mr 11:07 Alverto Krause DO is Private Physician. mr 11:10 Jatinder Sandhu MD is Attending Physician. rt 11:19 Triage completed. iw 11:20 Arm band placed on. iw 11:35 CT Head Brain wo Cont In Process Unspecified. EDMS 11:59 XRAY Chest (1 view) In Process Unspecified. EDMS 12:02 Initial lab(s) drawn, by me, sent to lab. Inserted saline lock: 22 gauge in right as6 forearm, using aseptic technique. Blood collected. 12:02 Basic Metabolic Panel Sent. as6 12:02 CBC with Diff Sent. as6 12:02 LFT's Sent. as6 12:02 Magnesium Sent. as6 12:02 NT PRO-BNP Sent. as6 12:02 PT-INR Sent. as6 12:02 Troponin HS Sent. as6 12:32 Caleb Denson, RAUL is Primary Nurse. tl4 13:01 Basic Metabolic Panel Sent. tl4 13:01 LFT's Sent. tl4 13:01 Magnesium Sent. tl4 13:01 NT PRO-BNP Sent. tl4 13:01 PT-INR Sent. tl4 13:01 Troponin HS Sent. tl4 13:05 Patient has correct armband on for positive identification. Placed in gown. Bed in low tl4 position. Call light in reach. Side rails up X2. Adult w/ patient. Provided Education on: ed process. Client placed on continuous cardiac and pulse oximetry monitoring. NIBP monitoring applied. surveillance system monitor on. Door closed. Noise minimized. Lights dimmed. Moved to private room. Warm blanket given. 13:55 Marylou Cooper MD is Hospitalizing Provider. rt 15:06 Warm blanket given. tl4 17:37 No provider procedures requiring assistance completed. Patient admitted, IV remains in as6 place. Administered Medications: 13:01 Drug: hydrALAZINE IVP 20 mg IVP once Route: IVP; Site: right forearm; tl4 15:00 Follow up: Response: No adverse reaction; Blood pressure is lowered tl4 Medication: 13:05 VIS not applicable for this client. tl4 Outcome: 13:55 Decision to Hospitalize by Provider. rt 17:37 Admitted to Med/surg accompanied by tech, family with patient, via wheelchair, as6 17:37 Condition: stable 17:37 Instructed on the need for admit, 17:38 Patient left the ED. as6 Signatures: Dispatcher [employer] EDSC MckeonKarolina valenzuela, Mravin Reg Bhavna Oneil, RAUL CARTER iw Palomo Aleman RN RN as6 Jatinder Sandhu MD MD rt Caleb Denson RN RN tl4
[2024-01-22] MEDS ORDERED: D10W 250 ML BAG IV PRN (15:26)
[2024-01-22] MEDS ORDERED: GLUCAGON 1 MG/VIAL IM PRN (15:26)
--- NOTE | 2024-01-22 15:35 | P.HP ---
Certification for Inpatient Patient admitted to: Inpatient With expected LOS: >2 Midnights Patient will require the following post-hospital care: None Practitioner: I am a practitioner with admitting privileges, knowledge of patient current condition, hospital course, and medical plan of care. Services: Services provided to patient in accordance with Admission requirements found in Title 42 Section 412.3 of the Code of Federal Regulations <Renetta Ewing - Last Filed: 01/22/24 18:23> Patient History Date of Service: 01/22/24 - Past Medical/Surgical History Has patient received pneumonia vaccine in the past: No Diabetic: Yes -: HTN -: Diabetes mellitus type 2, non insulin dependent -: Chronic Hearing loss -: Bowel Resection with Ileostomy bag/reversal -: Chronic hyponatremia -: intermittent a. 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 She is . - Family History Mother -: Hypertension, Diabetes Sister -: Hypertension, Diabetes Dad & Mom -: Hypertension, Diabetes - Social History Smoking Status: Never smoker Alcohol use: No CD- Drugs: No Caffeine use: Yes Place of Residence: Home <Renetta Ewing - Last Filed: 01/22/24 18:23> Date of Service: 01/22/24 <Marylou Cooper - Last Filed: 01/23/24 03:15> Allergies No Known Allergies Allergy (Verified 08/24/19 13:01) Home Medications: Carvedilol [Coreg] 25 mg PO BID 03/24/22 Doxazosin [Cardura*] 2 mg PO BEDTIME 03/24/22 Hydralazine [Apresoline*] 50 mg PO BID* 03/24/22 Calcium Carbonate/Mag Carb [Magnebind 400 Tablet] 1 each PO TIDWM 30 Days #90 tablet 04/16/22 Glipizide [Glipizide Xl] 5 mg PO BID 09/09/23 Olmesartan Medoxomil [Benicar] 40 mg PO DAILY 09/09/23 Apixaban [Eliquis] 5 mg PO DAILY 01/22/24 Aspirin [Aspirin EC 81 MG] 81 mg PO DAILY 01/22/24 Atorvastatin Calcium [Lipitor] 20 mg PO BEDTIME 01/22/24 Gabapentin [Neurontin*] 600 mg PO TID 01/22/24 Na Bicarb Tab [Sodium Bicarb 325 MG] 650 mg PO BID 01/22/24 Review of Systems 10-point ROS is otherwise unremarkable Cardiovascular: Light Headedness Musculoskeletal: As per HPI Neurological: Other (dizziness) <Renetta Ewing Rohit - Last Filed: 01/22/24 18:23> Physical Examination - Physical Exam General: Alert, In no apparent distress, Oriented x3 HEENT: Atraumatic, Normocephalic Neck: Supple, JVD not distended Respiratory: Normal air movement Cardiovascular: Regular rate/rhythm, No murmurs Capillary refill: <2 Seconds Gastrointestinal: Soft and benign Musculoskeletal: No clubbing, No swelling, Other (left lower ext tenderness) Integumentary: No rashes Neurological: Normal speech, Normal tone, Other (gait not tested) Lymphatics: No axilla or inguinal lymphadenopathy External genitalia: Deferred Rectal: Deferred - Studies Laboratory Data (last 24 hrs) 01/22/24 01/22/24 01/22/24 12:57 12:57 12:00 WBC 7.60 Hgb 11.5 L Hct 34.0 L Plt Count 220 PT 16.4 H INR 1.51 Sodium 134 L Potassium 3.9 BUN 21 H Creatinine 1.42 H Glucose 126 H Magnesium 2.3 Total Bilirubin 0.5 AST 21 ALT 35 Alkaline Phosphatase 65 <Renetta Ewing Rohit - Last Filed: 01/22/24 18:23> - Studies Laboratory Data (last 24 hrs) 01/22/24 01/22/24 01/22/24 12:57 12:57 12:00 WBC 7.60 Hgb 11.5 L Hct 34.0 L Plt Count 220 PT 16.4 H INR 1.51 Sodium 134 L Potassium 3.9 BUN 21 H Creatinine 1.42 H Glucose 126 H Magnesium 2.3 Total Bilirubin 0.5 AST 21 ALT 35 Alkaline Phosphatase 65 <Marylou Cooper - Last Filed: 01/23/24 03:15> Assessment and Plan - Plan Systolic hypertension: Continue home medications and trend blood pressure continued systolic hypertension to almost 200. Will stop amlodipine and start Verapamil 180mg SR BID and trend BP Trend troponins Pt sees Dr. Ortega Dizziness: Carotid doppler Electrolyte trend and replenishment (hx of hyponatremia) History of paroxysmal a. fib - takes Eliquis, states dose of 5mg daily Last ECHO at this facility 2021 2 DIMENSIONAL ASSESSMENT: RIGHT ATRIUM: NORMAL LEFT ATRIUM: NORMAL RIGHT VENTRICLE: NORMAL LEFT VENTRICLE: NORMAL TRICUSPID VALVE: NORMAL MITRAL VALVE: NORMAL PULMONIC VALVE: NORMAL AORTIC VALVE: NORMAL PERICARDIAL EFFUSION: NONE AORTIC ROOT: NORMAL LEFT VENTRICULAR WALL MOTION: NORMAL. DOPPLER/COLOR FLOW: NORMAL. COMMENTS: NORMAL 2D ECHO WITH DOPPLER. NO VEGETATION. NO THROMBUS. TECHNOLOGIST: LILO MONROY Dictated By: Ez Burks MD 03/25/22 1600 Lower extremity pain: electrolyte management US left lower ext DVT prophylaxis: SCD and pt on Eliquis Code status: Full Discharge Plan: Home Plan to discharge in: 48 Hours - Advance Directives Does patient have a Living Will: Yes Does patient have a Durable POA for Healthcare: No <Renetta Ewing - Last Filed: 01/22/24 18:23> Date of Service: 01/22/24 Patient was seen and examined. Agree with findings as mentioned above. <Marylou Cooper - Last Filed: 01/23/24 03:15>
--- NOTE | 2024-01-22 16:22 | RAD REPORT ---
EXAM DESCRIPTION: US - Extremity Venous Uni Ltd - 01/22/2024 4:15 pm CLINICAL HISTORY: left lower ext pain Leg swelling and edema. COMPARISON: Chest For Pe Angio dated 10/14/2022oft Tissue Neck Wo Contr dated 01/16/2024No comparisons FINDINGS: Left lower extremity venous system was interrogated with Doppler technique. Normal flow, c ompressibility and augmentation was noted. There is no DVT present. IMPRESSION: No evidence of left lower extremity deep venous thrombosis.
--- NOTE | 2024-01-22 16:22 | RAD REPORT ---
EXAM DESCRIPTION: - CP - 01/22/2024 4:15 pm CLINICAL HISTORY: dizziness Headache, drowsiness COMPARISON: <Comparisons> TECHNIQUE: Real-time sonographic evaluation of both carotid systems was performed. Doppler interroga tion was performed with waveform tracing bilaterally. FINDINGS: Normal high resistance waveforms are noted in both external carotid arteries. The common c arotid arteries and internal carotid arteries show normal low resistance waveforms. No significant plaque formation is seen. Tortuous vessels noted. Peak systolic and end diastolic [place] values and the ICA/CCA ratios are in the non-hemodynamically significant range. Antegrade flow seen in both vertebral arteries. IMPRESSION: No significant atherosclerotic changes noted. Tortuous vasculature. No evidence of a hemodynamically significant stenosis.
[2024-01-22] MEDS: INSULIN REGULAR (HUMAN) 100 UNIT/ML SQ SCH (16:30)
[2024-01-22] MEDS: CALCIUM CARBONATE PO SCH (17:00)
[2024-01-22] MEDS: MAG CARB PO SCH (17:00)
[2024-01-22] MEDS: HYDRALAZINE HCL 20 MG/ML VIAL IV ONE (18:32)
[2024-01-22] MEDS ORDERED: HYDROCODONE/APAP 5/325 MG TAB PO PRN (19:55)
[2024-01-22] MEDS ORDERED: HYDRALAZINE HCL 20 MG/ML VIAL IV PRN (20:00)
[2024-01-22] MEDS: ACETAMINOPHEN 325 MG TABLET PO PRN (20:05)
[2024-01-22] MEDS: VERAPAMIL SR 180 MG TAB PO SCH (20:06)
[2024-01-22] MEDS: DOXAZOSIN 2 MG TAB PO SCH (20:07)
[2024-01-22] MEDS: VALSARTAN 80 MG TAB PO SCH (20:07)
[2024-01-22] MEDS: APIXABAN 2.5 MG TABLET PO SCH (20:08)
[2024-01-22] MEDS: PRAMIPEXOLE 0.25 MG TAB PO SCH (20:08)
[2024-01-22] MEDS: HYDRALAZINE HCL 25 MG TABLET PO SCH (20:12)
[2024-01-22] MEDS ORDERED: HOME MED 1 EA UNK (Olmesartan Medoxomil [Benicar] 20 MG Tablet) PO SCH (21:00)
[2024-01-22] MEDS ORDERED: carvediloL 25 MG TAB PO SCH (21:00)
[2024-01-22] MEDS: NA CHLORIDE 0.9% 1,000 ML IV SCH (22:24)
[2024-01-22 23:06] LABS: Specific Gravity 1.007 (1.005-1.030); Sqamous Epithelial None Seen /HPF (None Seen); Urine Bacteria <20 /HPF (<20); Urine Bilirubin NEGATIVE (Negative); Urine Blood Negative (Negative); Urine Clarity Extremely Turbid (Clear); Urine Color Light-Yellow (Yellow); Urine Crystals Unidentified Few /HPF (None Seen); Urine Culture Reflex Order REFLEXED; Urine Glucose NEGATIVE (Negative); Urine Ketones NEGATIVE (Negative); Urine Microscopic Reflex YN ORDER UMIC; Urine Nitrite 2+ (Negative); Urine Protein 1+ (Negative); Urine RBC <5 /HPF (None Seen); Urine Urobilinogen Normal (Normal); Urine WBC 20-50 /HPF (<5); Urine WBC Clump Moderate /HPF (None Seen); Urine Yeast (Budding) Few /HPF (None Seen); Urine pH 5.5 (5.0-7.0)
[2024-01-23 04:54] LABS: Absolute Lymphocytes (CBC) 1.1 K/uL (0.7-4.9); Absolute Monocytes 0.2 K/uL (0.1-1.3); Absolute Neutrophil 5.9 K/uL (1.8-8.0); Basophils % 0.6 % (0-1.3); Eosinophils % 0.1 % (0-4.4); Hematocrit 29.7 % (36.0-45.0); Hemoglobin 10.3 g/dL (12.0-15.0); Lymphocytes % 15.6 % (15.3-44.8); MCH 31.1 pg (27.0-35.0); MCHC 34.6 g/dL (32.0-36.0); MCV 90.1 fL (80-100); MPV 8.2 fL (7.6-11.3); Monocytes % 2.8 % (3.3-12.3); Neutrophils % 80.9 % (41.7-73.7); Platelets 219 thou/uL (152-406)
[2024-01-23 05:16] LABS: Albumin 3.2 g/dL (3.4-5.0); Albumin/Globulin Ratio 1.1 (1.1-1.8); Anion Gap 10.6 mEq/L (5.0-15.0); Bilirubin Total 0.5 mg/dL (0.2-1.0); Magnesium 2.2 mg/dL (1.6-2.4); Potassium 3.6 mEq/L (3.5-5.1); Protein, Total 6.2 g/dL (6.4-8.2); Troponin High Sensitivity 35.3 pg/mL (<58.9)
[2024-01-23] MEDS: carvediloL 12.5 MG TAB PO SCH (05:55)
[2024-01-23] MEDS: ASPIRIN EC 81 MG TAB PO SCH (07:44)
[2024-01-23] MEDS: APIXABAN 2.5 MG TABLET PO SCH (07:44)
[2024-01-23] MEDS: SODIUM BICARB 325 MG TAB PO SCH (07:45)
[2024-01-23] MEDS: GABAPENTIN 300 MG CAP PO SCH (07:46)
[2024-01-23] MEDS ORDERED: AMLODIPINE 10 MG TAB PO SCH (09:00)
--- NOTE | 2024-01-23 10:12 | P.PN ---
Subjective Date of Service: 01/23/24 Chief Complaint: hypertension Subjective: Other (hypotensive episode overnight 2nd to all antihypertensives given at once. Recovered well with small fluid bolus and repositioning) <Renetta Ewing - Last Filed: 01/23/24 10:08> Date of Service: 01/23/24 <Marylou Cooper - Last Filed: 01/24/24 16:19> Review of Systems 10-point ROS is otherwise unremarkable Cardiovascular: Light Headedness, As per HPI Neurological: As per HPI <Renetta Ewing - Last Filed: 01/23/24 10:08> Physical Examination - Vital Signs Temperature: 97.9 F Blood Pressure: 204/76 Pulse: 61 Respirations: 16 Pulse Ox (%): 98 - Physical Exam General: Alert, In no apparent distress HEENT: Atraumatic, Normocephalic Neck: Supple Respiratory: Clear to auscultation bilaterally Cardiovascular: Normal pulses Capillary refill: <2 Seconds Gastrointestinal: Normal bowel sounds, Soft and benign Musculoskeletal: No clubbing, No swelling, Other (left leg cramping) Integumentary: No rashes Neurological: Other (slow to answer, but answers appropriately) External genitalia: Deferred Rectal: Deferred - Studies Laboratory Data (last 24 hrs) 01/22/24 01/22/24 01/22/24 12:57 12:57 12:00 WBC 7.60 Hgb 11.5 L Hct 34.0 L Plt Count 220 PT 16.4 H INR 1.51 Sodium 134 L Potassium 3.9 BUN 21 H Creatinine 1.42 H Glucose 126 H Magnesium 2.3 Total Bilirubin 0.5 AST 21 ALT 35 Alkaline Phosphatase 65 <Renetta Ewing - Last Filed: 01/23/24 10:08> Assessment And Plan - Plan Systolic hypertension: Continue home medications and trend blood pressure continued systolic hypertension to almost 200. Will stop amlodipine and start Verapamil 180mg SR BID and trend BP Trend troponins - negative Pt sees Dr. Ortega Changed Amlodipine to Verapamil and will continue to monitor Dizziness: Carotid doppler Electrolyte trend and replenishment (hx of hyponatremia) History of paroxysmal a. fib - takes Eliquis, states dose of 5mg daily Last ECHO at this facility 2021 2 DIMENSIONAL ASSESSMENT: RIGHT ATRIUM: NORMAL LEFT ATRIUM: NORMAL RIGHT VENTRICLE: NORMAL LEFT VENTRICLE: NORMAL TRICUSPID VALVE: NORMAL MITRAL VALVE: NORMAL PULMONIC VALVE: NORMAL AORTIC VALVE: NORMAL PERICARDIAL EFFUSION: NONE AORTIC ROOT: NORMAL LEFT VENTRICULAR WALL MOTION: NORMAL. DOPPLER/COLOR FLOW: NORMAL. COMMENTS: NORMAL 2D ECHO WITH DOPPLER. NO VEGETATION. NO THROMBUS. TECHNOLOGIST: LILO MONROY Dictated By: Ez Burks MD 03/25/22 1600 Lower extremity pain: electrolyte management US left lower ext DVT prophylaxis: SCD and pt on Eliquis Code status: Full <Renetta Ewing - Last Filed: 01/23/24 10:08> Date of Service: 01/23/24 Patient was seen and examined and agree with findings as mentioned above. Try to get more aggressive blood pressure control. Adjusted blood pressure medications and hopefully we can get better control of patient's blood pressure. MRI was unremarkable. Working on discharge planning once we get patient's blood pressure better controlled. <Marylou Cooper - Last Filed: 01/24/24 16:19>
[2024-01-23] MEDS: POTASSIUM CL SA 10 MEQ TAB PO ONE (10:29)
[2024-01-23] MEDS: HYDRALAZINE HCL 20 MG/ML VIAL IV PRN (12:09)
[2024-01-23] MEDS: HYDRALAZINE HCL 25 MG TABLET PO SCH ×2 (12:55→21:30)
[2024-01-23] MEDS ORDERED: HYDRALAZINE HCL 25 MG TABLET PO SCH (14:00)
[2024-01-23] MEDS ORDERED: DOXAZOSIN 1 MG TAB PO ONE (15:00)
[2024-01-23] MEDS: DOXAZOSIN 2 MG TAB PO ONE (15:01)
[2024-01-23 16:00] VITALS: BMI 23.8
[2024-01-23] MEDS: HYDRALAZINE HCL 20 MG/ML VIAL IV ONE (16:43)
--- NOTE | 2024-01-23 17:24 | EKG ---
Test Date: 2024-01-22 Test Time: 13:50:09 Industrial Chemistry Teacher: TL MEASUREMENT RESULTS: Intervals: Rate: 62 [place]: 220 QRSD: 82 QT: 456 QTc: 462 [place]: P: 90 KS: 220 QRS: 77 T: 71 INTERPRETIVE STATEMENTS: Sinus rhythm with 1st degree AV block Otherwise normal ECG Compared to ECG 01/16/2024 20:32:43 Sinus bradycardia no longer present Myocardial infarct finding no longer present Electronically Signed On 01-23-24 17:20:34 CDT by Serge Morales
[2024-01-23] MEDS: carvediloL 25 MG TAB PO SCH (17:29)
--- NOTE | 2024-01-23 19:52 | RAD REPORT ---
EXAM DESCRIPTION: MRI - Brain Wo Cont - 01/23/2024 3:56 pm CLINICAL HISTORY: vertigo COMPARISON: Noncontrast head CT 01/22/2024 TECHNIQUE: Multiplanar multisequence MRI of the brain performed without IV contrast. FINDINGS: Motion artifact somewhat limits evaluation, despite attempts at repeat imaging. No evidence of acute infarct or other diffusion signal abnormality. No evidence of acute intracranial hemorrhage or abnormal extra-axial fluid collections. Mild diffuse parenchymal volume loss. Ventricular caliber otherwise within normal for age. Midline st ructures are unremarkable. Scattered subcortical and deep white matter T2/FLAIR hyperintensities, nonspecific, but suggestive of chronic small vessel ischemic changes. No mass effect or midline shift. Major vascular flow voids are preserved. Mastoid air cells and paranasal sinuses are clear. IMPRESSION: No acute intracranial process. No evidence of ventriculomegaly or mass effect. Nonspecific foci of white matter T2 signal abnormality, suggestive of chronic small vessel ischemic c hanges.
[2024-01-23] MEDS: DOXAZOSIN 2 MG TAB PO SCH (21:29)
[2024-01-23] MEDS: ATORVASTATIN 20 MG TAB PO SCH (21:30)
[2024-01-24 07:26] LABS: Absolute Basophils 0.1 K/uL (0-0.5); Absolute Eosinophils 0.1 K/uL (0-0.5); Absolute Lymphocytes (CBC) 1.7 K/uL (0.7-4.9); Absolute Monocytes 0.5 K/uL (0.1-1.3); Absolute Neutrophil 4.8 K/uL (1.8-8.0); Eosinophils % 0.9 % (0-4.4); Hematocrit 27.8 % (36.0-45.0); Hemoglobin 9.5 g/dL (12.0-15.0); Lymphocytes % 24.1 % (15.3-44.8); MCH 30.7 pg (27.0-35.0); MCHC 34.1 g/dL (32.0-36.0); MCV 90.2 fL (80-100); MPV 8.7 fL (7.6-11.3); Monocytes % 7.1 % (3.3-12.3); Neutrophils % 66.9 % (41.7-73.7); Platelets 204 thou/uL (152-406); RBC Red Blood Cell Count 3.08 M/uL (3.86-4.86); Red Cell Distribution Width 13.2 % (12.1-15.2)
[2024-01-24 07:49] LABS: Albumin/Globulin Ratio 1.1 (1.1-1.8); Anion Gap 10.6 mEq/L (5.0-15.0); Bilirubin Total 0.4 mg/dL (0.2-1.0); Globulin 2.7 g/dL (2.3-3.5); Potassium 3.6 mEq/L (3.5-5.1); Protein, Total 5.7 g/dL (6.4-8.2)
[2024-01-24] MEDS: POTASSIUM CL SA 10 MEQ TAB PO ONE ×2 (07:54→07:56)
[2024-01-24 10:27] LABS: Thyroid Stimulating Hormone 5.36 uIU/mL (0.358-3.740)
--- NOTE | 2024-01-24 11:04 | P.PN ---
Subjective Date of Service: 01/24/24 Chief Complaint: hypertension Subjective: Tolerating diet, Improving <Renetta Ewing - Last Filed: 01/24/24 10:59> Date of Service: 01/24/24 <Marylou Cooper - Last Filed: 01/24/24 16:20> Review of Systems 10-point ROS is otherwise unremarkable General: As per HPI Neurological: Weakness, Other (dizziness), As per HPI <Renetta Ewing - Last Filed: 01/24/24 10:59> Physical Examination - Vital Signs Temperature: 98.5 F Blood Pressure: 108/53 Pulse: 53 Respirations: 12 Pulse Ox (%): 96 - Physical Exam General: In no apparent distress, Oriented x3 HEENT: Atraumatic, Normocephalic Neck: 2+ carotid pulse no bruit Respiratory: Normal air movement Cardiovascular: Normal pulses Capillary refill: <2 Seconds Gastrointestinal: Soft and benign Musculoskeletal: No clubbing Integumentary: No rashes Neurological: Normal tone Lymphatics: No axilla or inguinal lymphadenopathy External genitalia: Deferred Rectal: Deferred <Renetta Ewing - Last Filed: 01/24/24 10:59> Assessment And Plan - Plan Systolic hypertension: Continue home medications and trend blood pressure. SBP consistently in the 200s Stop amlodipine and start Verapamil 180mg SR BID and trend BP,, yesterday precipitous drop in BP overnight. NS at 75cc/hr given. Blood pressure recovered. MRI stroke protocol done 01/23/24 - negative for any acute finding Continued home antihypertensives except changed Amlodipine to Verapamil and will continue to monitor 01/23/24 - blood pressure remains labile Dizziness: Carotid doppler:"IMPRESSION: No significant atherosclerotic changes noted. Tortuous vasculature. No evidence of a hemodynamically significant stenosis." 01/22/24 Electrolyte trend and replenishment (hx of hyponatremia) History of paroxysmal a. fib - takes Eliquis, states dose of 5mg daily Last ECHO at this facility 2021 2 DIMENSIONAL ASSESSMENT: RIGHT ATRIUM: NORMAL LEFT ATRIUM: NORMAL RIGHT VENTRICLE: NORMAL LEFT VENTRICLE: NORMAL TRICUSPID VALVE: NORMAL MITRAL VALVE: NORMAL PULMONIC VALVE: NORMAL AORTIC VALVE: NORMAL PERICARDIAL EFFUSION: NONE AORTIC ROOT: NORMAL LEFT VENTRICULAR WALL MOTION: NORMAL. DOPPLER/COLOR FLOW: NORMAL. COMMENTS: NORMAL 2D ECHO WITH DOPPLER. NO VEGETATION. NO THROMBUS. TECHNOLOGIST: LILO MONROY Dictated By: Ez Burks MD 03/25/22 1600 Lower extremity pain: electrolyte management US left lower ext - negative for DVT DVT prophylaxis: SCD and pt on Eliquis Code status: Full Discharge Plan: Home Plan to discharge in: 24 Hours <Renetta Ewing - Last Filed: 01/24/24 10:59> Date of Service: 01/24/24 Patient was seen and examined and agree with findings as mentioned above. Try to get more aggressive blood pressure control. Adjusted blood pressure medications and hopefully we can get better control of patient's blood pressure. Patient blood pressure is much better controlled today. However, after she ambulates her blood pressure still gets elevated. Will workup secondary causes of hypertension. Patient's blood pressure overall is much better and we will work on discharge planning. Anticipate discharge in the morning. <Marylou Cooper - Last Filed: 01/24/24 16:20>
[2024-01-24] MEDS: CEFTRIAXONE 1,000 MG in NA CHLORIDE 0.9% 50 ML IVPB ONE (16:41)
[2024-01-24] MEDS: HYDRALAZINE HCL 25 MG TABLET PO SCH (20:47)
[2024-01-25] MEDS: SPIRONOLACTONE 25 MG TABLET PO SCH (05:23)
[2024-01-25 07:11] LABS: Absolute Basophils 0.1 K/uL (0-0.5); Absolute Eosinophils 0.1 K/uL (0-0.5); Absolute Lymphocytes (CBC) 1.5 K/uL (0.7-4.9); Absolute Monocytes 0.5 K/uL (0.1-1.3); Absolute Neutrophil 4.7 K/uL (1.8-8.0); Basophils % 0.9 % (0-1.3); Eosinophils % 1.6 % (0-4.4); Hematocrit 27.1 % (36.0-45.0); Hemoglobin 9.3 g/dL (12.0-15.0); Lymphocytes % 22.5 % (15.3-44.8); MCH 30.9 pg (27.0-35.0); MCHC 34.3 g/dL (32.0-36.0); MCV 90.2 fL (80-100); MPV 8.5 fL (7.6-11.3); Monocytes % 6.7 % (3.3-12.3); Neutrophils % 68.3 % (41.7-73.7); Nucleated Red Blood Cells % 0.1 % (0-0); Platelets 197 thou/uL (152-406); RBC Red Blood Cell Count 3.01 M/uL (3.86-4.86)
[2024-01-25 07:24] LABS: Anion Gap 10.9 mEq/L (5.0-15.0); Potassium 3.9 mEq/L (3.5-5.1)
[2024-01-25] MEDS: POTASSIUM CL SA 10 MEQ TAB PO ONE (08:32)
[2024-01-25 09:56] VITALS: O2SAT 97
--- NOTE | 2024-01-25 10:36 | P.PN ---
Subjective Date of Service: 01/25/24 Chief Complaint: hypertension, dizziness, headache Mrs. Lee is feeling better. Yesterday she walked in the hallways without any complaints. Having breakfast this a.m. Review of Systems 10-point ROS is otherwise unremarkable Neurological: As per HPI Physical Examination - Vital Signs Temperature: 99.0 F Blood Pressure: 164/70 Pulse: 60 Respirations: 20 Pulse Ox (%): 98 - Physical Exam General: Alert, In no apparent distress, Oriented x3 HEENT: Atraumatic, Normocephalic Neck: Supple, 2+ carotid pulse no bruit Respiratory: Clear to auscultation bilaterally Cardiovascular: No edema, Normal pulses Capillary refill: <2 Seconds Gastrointestinal: Soft and benign Musculoskeletal: No clubbing, No swelling Integumentary: No rashes Neurological: Normal speech, Normal tone Lymphatics: No axilla or inguinal lymphadenopathy External genitalia: Deferred Rectal: Deferred Assessment And Plan - Plan Systolic hypertension: Stopped amlodipine and started Verapamil 180mg SR BID, trending BP, blood pressure remains labile MRI stroke protocol done 01/23/24 - negative for any acute finding adjusting home antihypertensives, changed Amlodipine to Verapamil and will continue to monitor, SBP less than 200 for the past 12 hours. Dizziness: Carotid doppler:"IMPRESSION: No significant atherosclerotic changes noted. Tortuous vasculature. No evidence of a hemodynamically significant stenosis." 01/22/24 Electrolyte trend and replenishment (hx of hyponatremia) History of paroxysmal a. fib - takes Eliquis, states dose of 5mg daily Last ECHO at this facility 2021 2 DIMENSIONAL ASSESSMENT: RIGHT ATRIUM: NORMAL LEFT ATRIUM: NORMAL RIGHT VENTRICLE: NORMAL LEFT VENTRICLE: NORMAL TRICUSPID VALVE: NORMAL MITRAL VALVE: NORMAL PULMONIC VALVE: NORMAL AORTIC VALVE: NORMAL PERICARDIAL EFFUSION: NONE AORTIC ROOT: NORMAL LEFT VENTRICULAR WALL MOTION: NORMAL. DOPPLER/COLOR FLOW: NORMAL. COMMENTS: NORMAL 2D ECHO WITH DOPPLER. NO VEGETATION. NO THROMBUS. TECHNOLOGIST: LILO MONROY Dictated By: Ez Burks MD 03/25/22 1600 Lower extremity pain: electrolyte management US left lower ext - negative for DVT no further complaints 01/23/24 UTI: Urine culture returned last pm 01/24/24 with E.aerogenes, sensitive to Rocephin. ordered IVPB Hx of Hyponatremia: continue Na Bicarb 650mg po BID Sodium values since arrival between 134-137 DVT prophylaxis: SCD and pt on Eliquis Code status: Full Discharge Plan: Home Plan to discharge in: 24 Hours
[2024-01-25 17:08] VITALS: BP 118/60; TEMP 97.4
[2024-01-25] MEDS ORDERED: CEFTRIAXONE 1,000 MG in NA CHLORIDE 0.9% 50 ML IVPB SCH (21:00)
--- NOTE | 2024-01-27 14:17 | EKG ---
Test Date: 2024-01-22 Test Time: 22:48:57 Senior Net Application Developer: JOHN MEASUREMENT RESULTS: Intervals: Rate: 56 ID: [id number] QRSD: 90 QT: 508 QTc: 490 [place]: P: 92 ID: [id number] QRS: 79 T: 69 INTERPRETIVE STATEMENTS: Sinus bradycardia with 1st degree AV block Prolonged QT Abnormal ECG Compared to ECG 01/22/2024 13:50:09 Prolonged QT interval now present Sinus rhythm no longer present Electronically Signed On 01-27-24 14:08:22 CDT by Serge Morales
== END 2024-01-25 18:04 | disposition home or self-care (01) | DRG 305 ==
LOC: ER 11:05 → ERHOLD 15:17 → 2ND 16:47
PROVIDERS: ADMIT Hospitalist; ATTEND Hospitalist
DX: I16.1 Hypertensive emergency (principal); N39.0 Urinary tract infection, site not specified; I10 Essential (primary) hypertension; E11.9 Type 2 diabetes mellitus without complications; I48.0 Paroxysmal atrial fibrillation; Z88.1 Allergy status to other antibiotic agents; Z93.3 Colostomy status; Z79.82 Long term (current) use of aspirin; Z79.02 Long term (current) use of antithrombotics/antiplatelets; Z79.01 Long term (current) use of anticoagulants; Z90.49 Acquired absence of other specified parts of digestive tract; Z79.84 Long term (current) use of oral hypoglycemic drugs; Z79.899 Other long term (current) drug therapy; Z90.710 Acquired absence of both cervix and uterus
CPT/HCPCS: 36415; 70450; 70551; 71045; 80048; 80053; 80061; 80076; 81001; 82088; 82533; 82947; 83735; 83880; 84244; 84439; 84443; 84484; 85025; 85610; 87077; 87086; 87088; 87186; 93005; 93880; 93971; 96374; 99285; J0360; J0696; J7030

== ENCOUNTER 2024-02-05 19:35 | Inpatient (IN) | payer MEDICARE ==
[2024-02-05] MEDS ORDERED: HYDRALAZINE HCL 25 MG TABLET ONE (20:25)
[2024-02-05] MEDS ORDERED: cloNIDine HCL 0.1 MG TAB ONE (20:25)
[2024-02-05] MEDS ORDERED: ONDANSETRON 4 MG (ODT) TAB ONE (20:25)
[2024-02-05] MEDS ORDERED: NA CHLORIDE 0.9% 1,000 ML ONE ×2 (20:26→23:59)
[2024-02-05 20:57] LABS: Specific Gravity 1.006 (1.005-1.030); Sqamous Epithelial <5 /HPF (None Seen); Urine Bacteria <20 /HPF (<20); Urine Bilirubin NEGATIVE (Negative); Urine Blood Negative (Negative); Urine Clarity Clear (Clear); Urine Color Light-Yellow (Yellow); Urine Culture Reflex Order NOT NEEDED; Urine Glucose NEGATIVE (Negative); Urine Ketones NEGATIVE (Negative); Urine Microscopic Reflex YN ORDER UMIC; Urine Nitrite NEGATIVE (Negative); Urine Protein NEGATIVE (Negative); Urine RBC <5 /HPF (None Seen); Urine Urobilinogen Normal (Normal); Urine WBC <5 /HPF (<5)
[2024-02-05 20:59] LABS: Absolute Basophils 0.1 K/uL (0-0.5); Absolute Eosinophils 0.1 K/uL (0-0.5); Absolute Lymphocytes (CBC) 1.6 K/uL (0.7-4.9); Absolute Monocytes 0.5 K/uL (0.1-1.3); Absolute Neutrophil 4.5 K/uL (1.8-8.0); Eosinophils % 1.7 % (0-4.4); Hematocrit 30.6 % (36.0-45.0); Hemoglobin 10.3 g/dL (12.0-15.0); Lymphocytes % 23.8 % (15.3-44.8); MCH 30.3 pg (27.0-35.0); MCHC 33.7 g/dL (32.0-36.0); MCV 89.7 fL (80-100); MPV 8.5 fL (7.6-11.3); Monocytes % 7.5 % (3.3-12.3); Platelets 226 thou/uL (152-406); RBC Red Blood Cell Count 3.41 M/uL (3.86-4.86)
[2024-02-05 21:00] LABS: PT Prothrombin Time 12.3 SECONDS (9.5-12.5); Protime INR 1.12
[2024-02-05 21:15] LABS: Albumin 3.5 g/dL (3.4-5.0); Anion Gap 9.4 mEq/L (5.0-15.0); Bilirubin Direct 0.1 mg/dL (0-0.2); Bilirubin Indirect, Calculated 0.3 mg/dL (0.2-0.8); Bilirubin Total 0.4 mg/dL (0.2-1.0); Globulin 3.6 g/dL (2.3-3.5); Magnesium 2.4 mg/dL (1.6-2.4); Potassium 4.4 mEq/L (3.5-5.1); Protein, Total 7.1 g/dL (6.4-8.2); Troponin High Sensitivity 13.4 pg/mL (<58.9)
--- NOTE | 2024-02-05 22:12 | RAD REPORT ---
EXAM DESCRIPTION: RADChest Single View02/05/2024 8:22 pm CLINICAL HISTORY: COUGH COMPARISON: Chest Single View dated 01/22/2024; Chest Single View dated 01/16/2024; Chest Single View d ated 09/08/2023; Chest Single View dated 04/09/2022 TECHNIQUE: Portable AP view of the chest. FINDINGS: The lungs are clear. No pneumothorax or effusion. The cardiomediastinal contours are unre markable. IMPRESSION: No acute cardiopulmonary process.
--- NOTE | 2024-02-05 22:22 | RAD REPORT ---
EXAM DESCRIPTION: CT - Head Brain Wo Cont - 02/05/2024 9:43 pm CLINICAL HISTORY: DIZZINESS COMPARISON: Head Brain Wo Cont dated 01/22/2024; Head Brain Wo Cont dated 04/08/2022 TECHNIQUE: Noncontrast head CT images were obtained without IV contrast. Multiplanar reformats were generated and reviewed. All CT scans are performed using dose optimization technique as appropriate and may include automated exposure control or mA/KV adjustment according to patient size. FINDINGS: No intracranial hemorrhage, mass, or edema. Midline structures are unremarkable. Normal ventricular caliber for age. Lim-white matter differentiation is preserved, without evidence of acute infarct. No abnormal extra- axial fluid collections. Mastoid air cells and visualized portions of the paranasal sinuses are clear. No acute bony findings. IMPRESSION: No evidence of an acute intracranial process.
--- NOTE | 2024-02-05 22:37 | EDPHYS ---
Physician Documentation [facility] Name: Jesi Lee Age: 78 yrs Sex: Female : 1945 Arrival Date: 02/05/2024 Time: 19:35 Bed 3 Private MD: ED Physician Walker Majano HPI: 02/04 20:09 This 78 yrs old Female presents to ER via Ambulatory with complaints of sent by sp4 pcp:DIANE. 20:21 Patient presents with elevated blood pressure at home without other symptoms. . sp4 Historical: - Allergies: 19:49 Cipro; jj7 - PMHx: 19:49 Atrial fibrillation; Diabetes; Diverticulitis; Hypertension; ruptured bowel; jj7 - PSHx: 19:49 bowel resection with colostomy and reversal; hysterectomy; jj7 - Immunization history:: Client reports receiving the 2nd dose of the Covid vaccine, Pneumococcal vaccine is up to date, Flu vaccine is up to date. - Social history:: Smoking status: Patient denies any tobacco usage or history of. Patient/guardian denies using alcohol, street drugs, IV drugs. - Family history:: not pertinent. ROS: 20:23 Constitutional: Negative for fever, chills, and weight loss, Positive for elevated sp4 blood pressure 20:23 All other systems are negative, Exam: 20:23 Constitutional: This is a well developed, well nourished patient who is awake, alert, sp4 and in no acute distress. Head/Face: Normocephalic, atraumatic. Eyes: Pupils equal round and reactive to light, extra-ocular motions intact. Lids and lashes normal. Conjunctiva and sclera are not injected. Cornea within normal limits. Periorbital areas with no swelling, redness, or edema. ENT: Nares patent. No nasal discharge, no septal abnormalities noted. Tympanic membranes are normal and external auditory canals are clear. Oropharynx with no redness, swelling, or masses, exudates, or evidence of obstruction, uvula midline. Mucous membranes moist. Neck: Trachea midline, no thyromegaly or masses palpated, and no cervical lymphadenopathy. Supple, full range of motion without nuchal rigidity, or vertebral point tenderness. Chest/axilla: Normal chest wall appearance and motion. Nontender with no deformity. No lesions are appreciated. Cardiovascular: Regular rate and rhythm with a normal S1 and S2. No gallops, murmurs, or rubs. Normal PMI, no JVD. No pulse deficits. Respiratory: Lungs have equal breath sounds bilaterally, clear to auscultation and percussion. No rales, rhonchi or wheezes noted. No increased work of breathing, no retractions or nasal flaring. Abdomen/GI: Soft, with normal bowel sounds. No distension or tympany. No guarding or rebound. No evidence of tenderness throughout. Back: No spinal tenderness. No costovertebral tenderness. Skin: Warm, dry with normal turgor. Normal color with no rashes, no lesions, and no evidence of cellulitis. MS/ Extremity: Pulses equal, no cyanosis. Neurovascular intact. Full, normal range of motion. Neuro: Awake and alert, GCS 15, oriented to person, place, time, and situation. Cranial nerves II-XII grossly intact. Motor strength 5/5 in all extremities. Sensory grossly intact. Psych: Awake, alert, with orientation to person, place and time. Behavior, mood, and affect are within normal limits 22:38 ECG was reviewed by the Attending Physician. EKG at 1943 reveals sinus bradycardia with sp4 first-degree AV block Vital Signs: 19:42 BP 224 / 69; Pulse 60; Resp 16; Temp 97.2; Pulse Ox 99% ; Weight 58.06 kg; Height 5 ft. jj7 1 in. ; Pain 5/10; 19:50 BP 114 / 46; Pulse 66; Resp 16; Pulse Ox 97% on R/A; Pain 0/10; pf1 20:30 BP 107 / 44; Pulse 63; Resp 16; Pulse Ox 99% on R/A; Pain 0/10; pf1 21:30 BP 86 / 46; Pulse 54; Resp 16; Pulse Ox 99% ; Pain 0/10; pf1 22:30 BP 77 / 44; Pulse 51; Resp 16; Pulse Ox 100% on R/A; Pain 0/10; pf1 23:00 BP 119 / 54; Pulse 51; Resp 17 S; Pulse Ox 99% on R/A; ha1 02/05 00:00 BP 141 / 53; Pulse 54; Resp 17 S; Pulse Ox 100% on R/A; ha1 02/04 19:42 Body Mass Index 24.19 (58.06 kg, 154.94 cm) jj7 02/04 19:42 Pain Scale: Adult jj7 19:50 Pain Scale: Adult pf1 20:30 Pain Scale: Adult pf1 21:30 Pain Scale: Adult pf1 22:30 Pain Scale: Adult pf1 02/04 22:[address] Majano of BP, patient moved to trauma RM 3 pf1 NIH Stroke Scale Scores: 20:23 NIHSS Score: 0 sp4 Travis Coma Score: 20:23 Eye Response: spontaneous(4). Motor Response: obeys commands(6). Verbal Response: sp4 oriented(5). Total: 15. MDM: 19:56 Patient medically screened. vicki 22:37 ED course: EXAM DESCRIPTION: CT - Head Brain Wo Cont - 02/05/2024 9:43 pm CLINICAL sp4 HISTORY: DIZZINESS COMPARISON: Head Brain Wo Cont dated 01/22/2024; Head Brain Wo Cont dated 04/08/2022 TECHNIQUE: Noncontrast head CT images were obtained without IV contrast. Multiplanar reformats were generated and reviewed. All CT scans are performed using dose optimization technique as appropriate and may include automated exposure control or mA/KV adjustment according to patient size. FINDINGS: No intracranial hemorrhage, mass, or edema. Midline structures are unremarkable. Normal ventricular caliber for age. Lim-white matter differentiation is preserved, without evidence of acute infarct. No abnormal extra-axial fluid collections. Mastoid air cells and visualized portions of the paranasal sinuses are clear. No acute bony findings. IMPRESSION: No evidence of an acute intracranial process. . ED course: EXAM DESCRIPTION: RADChest Single View02/05/2024 8:22 pm CLINICAL HISTORY: COUGH COMPARISON: Chest Single View dated 01/22/2024; Chest Single View dated 01/16/2024; Chest Single View dated 09/08/2023; Chest Single View dated 04/09/2022 TECHNIQUE: Portable AP view of the chest. FINDINGS: The lungs are clear. No pneumothorax or effusion. The cardiomediastinal contours are unremarkable. IMPRESSION: No acute cardiopulmonary process.. 22:38 Differential Diagnosis altered mental status, sepsis, flu, Hypertensive emergency . sp4 Data reviewed: vital signs, nurses notes, lab test result(s), EKG, radiologic studies, CT scan, plain films. Consideration of Admission/Observation Patient was admitted/placed on observation. Escalation of care including admission/observation considered. Management of patient was discussed with the following: Hospitalist: Allison Alatorre MD . ED course: Patient's blood pressure has improved after some clonidine and hydralazine p.o.. Patient stable for admission. 02/04 19:47 Order name: Basic Metabolic Panel; Complete Time: 21:23 [facility] 02/04 19:47 Order name: CBC with Diff; Complete Time: 21:23 [facility] 02/04 19:47 Order name: LFT's; Complete Time: 21:23 [facility] 02/04 19:47 Order name: Magnesium; Complete Time: 21:23 [facility] 02/04 19:47 Order name: NT PRO-BNP; Complete Time: 21:23 [facility] 02/04 19:47 Order name: PT-INR; Complete Time: 21:23 [facility] 02/04 19:47 Order name: Troponin HS; Complete Time: 21:23 [facility] 02/04 19:47 Order name: Urinalysis w/ reflexes; Complete Time: 21:23 [facility] 02/04 19:48 Order name: Lipase; Complete Time: 21:23 [facility] 02/04 23:13 Order name: CBC with Automated Diff [facility] 02/04 23:13 Order name: CBC with Automated Diff [facility] 02/04 23:13 Order name: Comprehensive Metabolic Panel [facility] 02/04 23:13 Order name: Comprehensive Metabolic Panel [facility] 02/04 23:13 Order name: Lipid Profile [facility] 02/04 23:13 Order name: Lipid Profile [facility] 02/04 23:13 Order name: Troponin High Sensitivity [facility] 02/04 23:13 Order name: Troponin High Sensitivity [facility] 02/04 23:13 Order name: Troponin High Sensitivity [facility] 02/05 00:15 Order name: Glucose, Ancillary Testing; Complete Time: 00:19 [facility] 02/04 19:47 Order name: XRAY Chest (1 view); Complete Time: 22:30 [facility] 02/04 20:22 Order name: CT Head Brain wo Cont; Complete Time: 22:30 sp4 02/04 19:47 Order name: EKG; Complete Time: 19:48 [facility] 02/04 19:47 Order name: Cardiac monitoring; Complete Time: 20:37 [facility] 02/04 19:47 Order name: EKG - Nurse/Tech; Complete Time: 21:04 [facility] 02/04 19:47 Order name: IV Saline Lock; Complete Time: 20:38 [facility] 02/04 19:47 Order name: Labs collected and sent; Complete Time: 20:38 [facility] 02/04 19:47 Order name: O2 Per Protocol; Complete Time: 20:38 [facility] 02/04 19:47 Order name: O2 Sat Monitoring; Complete Time: 20:38 [facility] EC:38 Rate is 55 beats/min. Rhythm is regular, Sinus bradycardia. QRS [place] is Normal. [place] sp4 interval is normal. QRS interval is normal. QT interval is normal. No Q waves. T waves are Normal. No ST changes noted. Clinical impression: No evidence of ischemia. Interpreted by me. Reviewed by me. Administered Medications: 20:39 Drug: cloNIDine PO 0.1 mg PO once Route: PO; cp4 02/05 00:08 Follow up: Response: No adverse reaction rv 02/04 20:39 Drug: Ondansetron PO 4 mg PO once Route: PO; 4 02/05 00:08 Follow up: Response: No adverse reaction rv 02/04 20:40 Drug: NS 0.9% IV 1000 ml IV at 125 ml/hr continuous Route: IV; Rate: 125 ml/hr; Site: 4 left antecubital; 02/05 00:08 Follow up: IV Status: Infusion continued upon admission rv 02/04 20:40 Drug: HydrALAZINE PO 50 mg PO once Route: PO; cp4 02/05 00:08 Follow up: Response: No adverse reaction rv Disposition Summary: 02/05/24 22:37 Hospitalization Ordered Notes: Hospitalization Status: Inpatient Admission sp4 Provider: Marylou Cooper sp[place] Condition: Stable sp4 Problem: new sp4 Symptoms: have improved sp4 Bed/Room Type: Standard sp4 Location: Telemetry/MedSurg (Inpatient)(02/06/24 01:03) rv1 Room Assignment: 430(02/06/24 01:03) rv1 Diagnosis - Essential (primary) hypertension sp4 - Hypertensive emergency, acute on chronic renal insufficiency sp4 Forms: - Medication Reconciliation Form sp4 - SBAR form sp4 - Leadership Thank You Letter sp4 NIH Stroke Scale - NIH Stroke Score Date: 02/05/2024 Time: 20:23 Total Score = 0 10. Dysarthria (speech clarity - read or repeat words) - 0(Normal) 11. Extinction and Inattention (visual/tactile/auditory/spatial/personal) - 0(No abnormality) 1a. Level of Consciousness (LOC) - 0(Alert) 1b. Level of Consciousness (LOC) (Month \T\ Age) - 0(Both) 1c. LOC Commands (Open \T\ Closes Eyes/Refinery Operator Reforming Unit) - 0(Both) 2. Best Gaze (Lateral Gaze Paresis) - 0(Normal) 3. Visual Field Loss - 0(No visual loss) 4. Facial Palsy - 0(Normal) 5a. Left Arm: Motor (10-second hold) - 0(No drift) 5b. Right Arm: Motor (10-second hold) - 0(No drift) 6a. Left Leg: Motor (5-second hold - always test supine) - 0(No drift) 6b. Right Leg: Motor (5-second hold - always test supine) - 0(No drift) 7. Limb Ataxia (finger/nose \T\ heel/burk - test with eyes open) - 0(Absent) 8. Sensory Loss (pinprick arms/legs/face) - 0(Normal) 9. Best Language: Aphasia (description/naming/reading) - 0(No aphasia) Initials: sp4 Signatures: Dispatcher [employer] EDSimeon Manzano MD MD cha Johnson, Juwairiyah RN RN jj7 Doreen Christianson rv1 Walker Majano MD MD sp4 Milagros Orellana cp4 Robby Kearney RN rv Corrections: (The following items were deleted from the chart) 02/04 23:24 22:37 Telemetry/MedSurg (Inpatient) sp4 rv1 23:24 22:37 sp4 rv1 02/05 01:03 02/04 23:24 [facility] [[email or web address] ER HOLD rv1 rv1 02/05 01:03 02/04 23:24 ERHOLD- rv1 rv1
--- NOTE | 2024-02-05 22:37 | ER ---
Nurse's Notes [facility] Name: Jesi Lee Age: 78 yrs Sex: Female : 1945 Arrival Date: 02/05/2024 Time: 19:35 Bed 3 Private MD: Diagnosis: Essential (primary) hypertension;Hypertensive emergency, acute on chronic renal insufficiency Presentation: 02/04 19:42 Chief complaint: Patient states: HIGH BP SINCE FRIDAY WHEN SHE WAS RELEASED FROM THE [address] WAS ADMITTED TO THIS HOSPITAL ON THE FOR HIGH BP. CAN'T GET IT UNDER CONTROL. TOLD THEM TO COME BACK IN. Coronavirus screen: At this time, the client does not indicate any symptoms associated with coronavirus-19. Ebola Screen: No symptoms or risks identified at this time. Initial Sepsis Screen: Does the patient meet any 2 criteria? No. Patient's initial sepsis screen is negative. Does the patient have a suspected source of infection? No. Patient's initial sepsis screen is negative. Risk Assessment: Do you want to hurt yourself or someone else? Patient reports no desire to harm self or others. 19:42 Method Of Arrival: Ambulatory [facility] 19:42 Acuity: R[place]ET[place] 3 [facility] 02/05 00:08 Onset of symptoms was February 05, 2024. Triage Assessment: 02/04 19:49 General: Appears in no apparent distress. comfortable, Behavior is calm, cooperative, [facility] appropriate for age. Cardiovascular: Reports HIGH BLOOD PRESSURE Chest pain is denied. Historical: - Allergies: 19:49 Cipro; j7 - PMHx: 19:49 Atrial fibrillation; Diabetes; Diverticulitis; Hypertension; ruptured bowel; [facility] - PSHx: 19:49 bowel resection with colostomy and reversal; hysterectomy; j - Immunization history:: Client reports receiving the 2nd dose of the Covid vaccine, Pneumococcal vaccine is up to date, Flu vaccine is up to date. - Social history:: Smoking status: Patient denies any tobacco usage or history of. Patient/guardian denies using alcohol, street drugs, IV drugs. - Family history:: not pertinent. Screenin:41 [facility] ED Fall Risk Assessment (Adult) History of falling in the last 3 months, cp4 including since admission No falls in past 3 months (0 pts) Confusion or Disorientation No (0 pts) Intoxicated or Sedated No (0 pts) Impaired Gait No (0 pts) Mobility Assist Device Used No (0 pt) Altered Elimination No (0 pt) Score/Fall Risk Level 0 - 2 = Low Risk Oriented to surroundings, Maintained a safe environment, Assessed \T\ reinforced patient's understanding of fall precautions, Hourly rounding (assess needs \T\ fall precautionary measures) done. Abuse screen: Denies threats or abuse. Nutritional screening: No deficits noted. Tuberculosis screening: No symptoms or risk factors identified. Assessment: 20:41 General: Appears in no apparent distress. Behavior is calm, cooperative, appropriate cp4 for age. Pain: Denies pain. Cardiovascular: No deficits noted. Reports high blood pressure since the . 21:30 Reassessment: Patient appears in no apparent distress at this time. Patient and/or pf1 family updated on plan of care and expected duration. Pain level reassessed. Patient is alert, oriented x 3, equal unlabored respirations, skin warm/dry/pink. 22:30 Reassessment: Patient appears in no apparent distress at this time. Patient and/or pf1 family updated on plan of care and expected duration. Pain level reassessed. Patient is alert, oriented x 3, equal unlabored respirations, skin warm/dry/pink. Patient states symptoms have not improved. 23:00 Reassessment: Patient and/or family updated on plan of care and expected duration. Pain ha1 level reassessed. Patient is alert, oriented x 3, equal unlabored respirations, skin warm/dry/pink. General: Appears comfortable, Behavior is calm, cooperative. Pain: Complains of pain in neck Pain does not radiate. Pain currently is 5 out of 10 on a pain scale. Quality of pain is described as throbbing. Neuro: Level of Consciousness is awake, alert, obeys commands, Oriented to person, place, time, situation. 23:00 Derm: Skin is pink, warm \T\ dry. ha1 02/05 01:22 Reassessment: fax sheet sent and received by RAUL Rojo. vickie Vital Signs: 02/04 19:42 BP 224 / 69; Pulse 60; Resp 16; Temp 97.2; Pulse Ox 99% ; Weight 58.06 kg; Height 5 ft. jj7 1 in. ; Pain 5/10; 19:50 BP 114 / 46; Pulse 66; Resp 16; Pulse Ox 97% on R/A; Pain 0/10; pf1 20:30 BP 107 / 44; Pulse 63; Resp 16; Pulse Ox 99% on R/A; Pain 0/10; pf1 21:30 BP 86 / 46; Pulse 54; Resp 16; Pulse Ox 99% ; Pain 0/10; pf1 22:30 BP 77 / 44; Pulse 51; Resp 16; Pulse Ox 100% on R/A; Pain 0/10; pf1 23:00 BP 119 / 54; Pulse 51; Resp 17 S; Pulse Ox 99% on R/A; ha1 02/05 00:00 BP 141 / 53; Pulse 54; Resp 17 S; Pulse Ox 100% on R/A; ha1 02/04 19:42 Body Mass Index 24.19 (58.06 kg, 154.94 cm) 7 02/04 19:42 Pain Scale: Adult [facility] 19:50 Pain Scale: Adult pf1 20:30 Pain Scale: Adult pf1 21:30 Pain Scale: Adult pf1 22:30 Pain Scale: Adult pf1 02/04 22:[address] Majano of BP, patient moved to trauma RM 3 pf1 [place] Coma Score: 20:23 Eye Response: spontaneous(4). Motor Response: obeys commands(6). Verbal Response: sp4 oriented(5). Total: 15. NIH Stroke Scale Scores: 20:23 NIHSS Score: 0 sp4 ED Course: 19:37 Patient arrived in ED. rg4 19:45 Simeon Gavin MD is Attending Physician. vicki 19:49 Triage completed. jj7 19:49 Arm band placed on right wrist. jj7 20:08 Attending Physician role handed off by Simeon Gavin MD sp4 20:08 Walker Majano MD is Attending Physician. sp4 20:14 Milagros Orellana is Primary Nurse. cp4 20:24 XRAY Chest (1 view) In Process Unspecified. EDMS 20:37 Lipase Sent. kd3 20:37 Urinalysis w/ reflexes Sent. kd3 20:38 Basic Metabolic Panel Sent. kd3 20:38 CBC with Diff Sent. kd3 20:38 LFT's Sent. kd3 20:38 Magnesium Sent. kd3 20:38 NT PRO-BNP Sent. kd3 20:38 PT-INR Sent. kd3 20:38 Troponin HS Sent. kd3 20:40 Initial lab(s) drawn, by me, sent to lab. Urine collected: clean catch specimen, clear. cp4 Inserted saline lock: 22 gauge in left antecubital area, using aseptic technique. Blood collected. 20:41 Placed in gown. Bed in low position. Call light in reach. cp4 20:41 No provider procedures requiring assistance completed. cp4 21:45 CT Head Brain wo Cont In Process Unspecified. EDMS 22:36 Marylou Cooper MD is Hospitalizing Provider. sp4 22:49 Inserted saline lock: 20 gauge in right antecubital area, using aseptic technique. yb 02/05 00:08 Patient admitted, IV remains in place. rv 00:36 Provided Education on: need for admit . ha1 Administered Medications: 02/04 20:39 Drug: cloNIDine PO 0.1 mg PO once Route: PO; cp4 02/05 00:08 Follow up: Response: No adverse reaction rv 02/04 20:39 Drug: Ondansetron PO 4 mg PO once Route: PO; cp4 02/05 00:08 Follow up: Response: No adverse reaction rv 02/04 20:40 Drug: NS 0.9% IV 1000 ml IV at 125 ml/hr continuous Route: IV; Rate: 125 ml/hr; Site: [facility] left antecubital; 02/05 00:08 Follow up: IV Status: Infusion continued upon admission rv 02/04 20:40 Drug: HydrALAZINE PO 50 mg PO once Route: PO; cp4 02/05 00:08 Follow up: Response: No adverse reaction rv Medication: 02/04 20:41 VIS not applicable for this client. cp4 Outcome: 22:37 Decision to Hospitalize by Provider. sp4 02/05 00:07 Admitted to ER Hold. Please see [facility] for further documentation. rv Condition: good Instructed on the need for admit, 02:50 Patient left the ED. ha1 NIH Stroke Scale - NIH Stroke Score Date: 02/05/2024 Time: 20:23 Total Score = 0 10. Dysarthria (speech clarity - read or repeat words) - 0(Normal) 11. Extinction and Inattention (visual/tactile/auditory/spatial/personal) - 0(No abnormality) 1a. Level of Consciousness (LOC) - 0(Alert) 1b. Level of Consciousness (LOC) (Month \T\ Age) - 0(Both) 1c. LOC Commands (Open \T\ Closes Eyes/Turkey Cleaner) - 0(Both) 2. Best Gaze (Lateral Gaze Paresis) - 0(Normal) 3. Visual Field Loss - 0(No visual loss) 4. Facial Palsy - 0(Normal) 5a. Left Arm: Motor (10-second hold) - 0(No drift) 5b. Right Arm: Motor (10-second hold) - 0(No drift) 6a. Left Leg: Motor (5-second hold - always test supine) - 0(No drift) 6b. Right Leg: Motor (5-second hold - always test supine) - 0(No drift) 7. Limb Ataxia (finger/nose \T\ heel/burk - test with eyes open) - 0(Absent) 8. Sensory Loss (pinprick arms/legs/face) - 0(Normal) 9. Best Language: Aphasia (description/naming/reading) - 0(No aphasia) Initials: sp4 Signatures: Dispatcher [employer] EDSimeon Manzano MD MD cha Garcia, Rubi rg4 Robby Kearney, RN RN Michelle Ley RN RAUL kd3 Augusta Dodge RN RN ha1 Zaida Gilbert, RN RN jj7 Anila Navarro RN RAUL pf1 Walker Majano MD MD sp4 Milagros Orellana cp4 Mame Vázquez RN RN yb
--- NOTE | 2024-02-05 23:12 | P.HP ---
Certification for Inpatient Patient admitted to: Inpatient With expected LOS: >2 Midnights Patient will require the following post-hospital care: None Practitioner: I am a practitioner with admitting privileges, knowledge of patient current condition, hospital course, and medical plan of care. Services: Services provided to patient in accordance with Admission requirements found in Title 42 Section 412.3 of the Code of Federal Regulations Patient History Date of Service: 02/05/24 Reason for admission: Hypertensive urgency/JOSE History of Present Illness: Patient is a 78-year-old female who returns back to the emergency room with uncontrolled hypertension. She was told by her PCP that she needed to report back to the ER for better blood pressure control. She has been on numerous blood pressure medications; however, her blood pressure remains poorly controlled. She decided to come into the ER for further evaluation. In the emergency room she had labs that revealed elevated BUN and creatinine. This is mildly different from her baseline. Patient's blood pressure was also initially elevated at 160/80 but after given oral and IV antihypertensives her blood pressure was down to 110/70. Patient will be admitted for observation. Allergies No Known Allergies Allergy (Verified 08/24/19 13:01) Home Medications: Doxazosin [Cardura*] 2 mg PO BEDTIME 03/24/22 Calcium Carbonate/Mag Carb [Magnebind 400 Tablet] 1 each PO TIDWM 30 Days #90 tablet 04/16/22 Glipizide [Glipizide Xl] 5 mg PO BID 09/09/23 Aspirin [Aspirin EC 81 MG] 81 mg PO DAILY 01/22/24 Atorvastatin Calcium [Lipitor*] 20 mg PO BEDTIME 01/22/24 Gabapentin [Neurontin*] 600 mg PO TID 01/22/24 Na Bicarb Tab [Sodium Bicarb 325 MG Tab*] 650 mg PO BID 01/22/24 Apixaban [Eliquis *] 2.5 mg PO DAILY 01/25/24 Hydralazine HCl 50 mg PO Q6H #120 tab 01/25/24 Hydrocodone 5/APAP 325 [[place] 5/325*] 1 tab PO Q6HP PRN #30 tab 01/25/24 Olmesartan Medoxomil [Benicar] 20 mg PO BID #60 tab 01/25/24 Spironolactone [Aldactone*] 25 mg PO DAILY #30 tab 01/25/24 carvediloL [Coreg*] 25 mg PO BID 6AM 6PM #60 tab 01/25/24 - Past Medical/Surgical History Diabetic: Yes -: HTN -: Diabetes mellitus type 2, non insulin dependent -: Chronic Hearing loss -: Bowel Resection with Ileostomy bag/reversal -: Chronic hyponatremia -: intermittent atrial fibrillation -: Hysterectomy -: Cholecystectomy -: [place] cataract sx -: 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 She is . - Family History Mother Medical History: Hypertension, Diabetes Sister Medical History: Hypertension, Diabetes Dad & Mom Medical History: Hypertension, Diabetes - Social History Smoking Status: Former smoker Alcohol use: No CD- Drugs: No Caffeine use: Yes Review of Systems 10-point ROS is otherwise unremarkable Physical Examination - Vital Signs Temperature: 98 F Blood Pressure: 160/80 Pulse: 80 Respirations: 18 Pulse Ox (%): 95 - Physical Exam General: Alert, In no apparent distress, Oriented x3 HEENT: Atraumatic, PERRLA, Mucous membr. moist/pink, EOMI, Sclerae nonicteric Neck: Supple, 2+ carotid pulse no bruit, No LAD, Without JVD or thyroid ab normality Respiratory: Clear to auscultation bilaterally, Normal air movement Cardiovascular: Regular rate/rhythm, Normal S1 S2, No murmurs Gastrointestinal: Normal bowel sounds, Soft and benign, Non-distended, No tenderness Musculoskeletal: No clubbing, No swelling, No tenderness Integumentary: No rashes Neurological: Normal gait, Normal speech, Normal strength at 5/5 x4 extr, Normal tone, Sensation intact, Cranial nerves 3-12 intact, Normal affect Lymphatics: No axilla or inguinal lymphadenopathy - Studies Laboratory Data (last 24 hrs) 02/05/24 02/05/24 02/05/24 20:33 20:33 20:33 WBC 6.90 Hgb 10.3 L Hct 30.6 L Plt Count 226 PT 12.3 INR 1.12 Sodium 131 L Potassium 4.4 BUN 36 H Creatinine 1.96 H Glucose 182 H Magnesium 2.4 Total Bilirubin 0.4 AST 22 ALT 34 Alkaline Phosphatase 66 Lipase 74 Assessment & Plan - Problems (Diagnosis) (1) Hypertensive urgency Current Visit: Yes Status: Acute (2) S/P ileostomy Current Visit: No Status: Acute (3) Status post reversal of ileostomy Current Visit: No Status: Acute (4) Atrial fibrillation Current Visit: No Status: Chronic Qualifiers: Atrial fibrillation type: unspecified Qualified Code(s): I48.91 - Unspecified atrial fibrillation (5) Diabetes Current Visit: No Status: Chronic Qualifiers: Diabetes mellitus type: type 2 Diabetes mellitus care home insulin use: without care home use Diabetes mellitus complication status: with kidney complications Diabetes mellitus complication detail: with chronic kidney disease Chronic kidney disease stage 3 subtype: stage 3b (GFR 30-44) (6) Acute kidney injury Current Visit: Yes Status: Acute - Plan Plan: 1. Hypertensive urgency with acute renal sufficiency; continue with antihypertensives and plan is to slowly adjust blood pressure medications. Monitor hemodynamics closely. Patient had recurrent issues with uncontrolled hypertension. Hopefully, we can get better control on the oral hypertensives. 2. JOSE; gentle hydration and monitor renal function closely 3. Type 2 diabetes; strict blood pressure and blood sugar control 4. Atrial fibrillation; continue with medication for rate control 5. GI DVT prophylaxis Discharge Plan: Home Plan to discharge in: 24 Hours - Advance Directives Does patient have a Living Will: Yes Does patient have a Durable POA for Healthcare: No - Code Status/Comfort Care Code Status Assessed: Yes Code Status: Full Code Critical Care: No Time Spent Managing PTS Care (In Minutes): 45
[2024-02-05] MEDS: NA CHLORIDE 0.9% 1,000 ML IV SCH (23:45)
[2024-02-06 00:42] VITALS: BMI 24.0
[2024-02-06] MEDS ORDERED: ACETAMINOPHEN 500 MG TAB ONE (00:52)
[2024-02-06] MEDS ORDERED: ONDANSETRON 4 MG/2 ML VIAL ONE (00:57)
[2024-02-06] MEDS ORDERED: MORPHINE 2 MG/ML SYR ONE (00:58)
[2024-02-06] MEDS: ONDANSETRON 4 MG/2 ML VIAL IV PRN (01:12)
[2024-02-06] MEDS: MORPHINE 2 MG/ML SYR IV PRN (01:12)
[2024-02-06] MEDS: cloNIDine HCL 0.1 MG TAB PO ONE (03:16)
[2024-02-06] MEDS: ACETAMINOPHEN 500 MG TAB PO PRN (03:16)
[2024-02-06] MEDS: HYDRALAZINE HCL 25 MG TABLET PO SCH ×2 (06:22→08:00)
[2024-02-06] MEDS: DOXAZOSIN 2 MG TAB PO SCH (06:22)
[2024-02-06] MEDS ORDERED: HOME MED 1 EA UNK (Hydralazine Hcl [Hydralazine Hcl] 50 MG Tablet) PO SCH (07:30)
[2024-02-06] MEDS: CALCIUM CARBONATE PO SCH (08:00)
[2024-02-06] MEDS: MAG CARB PO SCH (08:00)
[2024-02-06] MEDS: SPIRONOLACTONE 25 MG TABLET PO SCH (08:32)
[2024-02-06] MEDS: VALSARTAN 80 MG TAB PO SCH (08:33)
[2024-02-06 08:46] LABS: Absolute Basophils 0.1 K/uL (0-0.5); Absolute Eosinophils 0.1 K/uL (0-0.5); Absolute Lymphocytes (CBC) 1.4 K/uL (0.7-4.9); Absolute Monocytes 0.4 K/uL (0.1-1.3); Absolute Neutrophil 3.7 K/uL (1.8-8.0); Basophils % 1.3 % (0-1.3); Eosinophils % 1.9 % (0-4.4); Hematocrit 27.6 % (36.0-45.0); Hemoglobin 9.1 g/dL (12.0-15.0); Lymphocytes % 25.2 % (15.3-44.8); MCH 30.2 pg (27.0-35.0); MCHC 32.9 g/dL (32.0-36.0); MCV 91.8 fL (80-100); MPV 8.5 fL (7.6-11.3); Monocytes % 6.7 % (3.3-12.3); Neutrophils % 64.9 % (41.7-73.7); Platelets 180 thou/uL (152-406); Red Cell Distribution Width 13.1 % (12.1-15.2)
[2024-02-06 08:55] LABS: ALT/SGPT 27 U/L (13-56); AST/SGOT 16 U/L (15-37); Albumin 3.1 g/dL (3.4-5.0); Albumin/Globulin Ratio 1.2 (1.1-1.8); Alkaline Phosphatase 54 U/L (45-117); Anion Gap 8.2 mEq/L (5.0-15.0); BUN Blood Urea Nitrogen 38 mg/dL (7-18); Bicarbonate 26 mEq/L (21-32); Bilirubin Total 0.4 mg/dL (0.2-1.0); Globulin 2.6 g/dL (2.3-3.5); Glomerular Filtration Rate 23 ml/min (=/>90); Glucose Level 161 mg/dL (74-106); HDL Cholesterol 52 mg/dL (40-60); Potassium 5.2 mEq/L (3.5-5.1); Protein, Total 5.7 g/dL (6.4-8.2); Sodium Level 134 mEq/L (136-145); Troponin High Sensitivity 9.3 pg/mL (<58.9)
[2024-02-06 08:58] LABS: LDL Cholesterol,Calc NonReport -2
[2024-02-06] MEDS ORDERED: HOME MED 1 EA UNK (Olmesartan Medoxomil [Benicar] 20 MG Tablet) PO SCH (09:00)
[2024-02-06] MEDS: GLIPIZIDE S.A. 5 MG TAB PO SCH (09:00)
[2024-02-06 09:08] LABS: LDL, Direct 10 mg/dL (100-129)
[2024-02-06] MEDS: ASPIRIN EC 81 MG TAB PO SCH (09:40)
[2024-02-06] MEDS: GABAPENTIN 100 MG CAP PO SCH (09:40)
[2024-02-06] MEDS: SODIUM BICARB 325 MG TAB PO SCH (09:40)
[2024-02-06] MEDS: APIXABAN 2.5 MG TABLET PO SCH (09:40)
--- NOTE | 2024-02-06 11:51 | EKG ---
Test Date: 2024-02-05 Test Time: 19:43:47 [employer] Design Engineer: ANTONIO MEASUREMENT RESULTS: Intervals: Rate: 55 SD: 240 QRSD: 84 QT: 434 QTc: 415 [place]: P: 100 SD: 240 QRS: 74 T: 76 INTERPRETIVE STATEMENTS: Sinus bradycardia with 1st degree AV block Otherwise normal ECG Compared to ECG 01/22/2024 22:48:57 Prolonged QT interval no longer present Electronically Signed On 02-06-24 11:48:58 CDT by Serge Morales
--- NOTE | 2024-02-06 14:25 | P.PN ---
Subjective Date of Service: 02/06/24 Chief Complaint: Hypertensive urgency/JOSE Subjective: C/O voiced (feeling slightly dizzy) Review of Systems 10-point ROS is otherwise unremarkable Cardiovascular: As per HPI Neurological: Other (a little dizzy with standing) Physical Examination - Vital Signs Temperature: 97.1 F Blood Pressure: 167/57 Pulse: 48 Respirations: 17 Pulse Ox (%): 99 - Physical Exam General: Alert, In no apparent distress, Oriented x3 HEENT: Atraumatic, Normocephalic Neck: Supple Respiratory: Normal air movement Cardiovascular: Normal pulses ( ), Regular rate/rhythm, Other (bradycardic between 38 and 46 with 1st degree block) Capillary refill: <2 Seconds Gastrointestinal: Soft and benign Musculoskeletal: No clubbing, No swelling Integumentary: No rashes Neurological: Normal speech, Normal tone Lymphatics: No axilla or inguinal lymphadenopathy External genitalia: Deferred Rectal: Deferred - Studies Laboratory Data (last 24 hrs) 02/05/24 02/05/24 02/05/24 20:33 20:33 20:33 WBC 6.90 Hgb 10.3 L Hct 30.6 L Plt Count 226 PT 12.3 INR 1.12 Sodium 131 L Potassium 4.4 BUN 36 H Creatinine 1.96 H Glucose 182 H Magnesium 2.4 Total Bilirubin 0.4 AST 22 ALT 34 Alkaline Phosphatase 66 Lipase 74 Assessment And Plan - Plan - Problems (Diagnosis) (1) Hypertensive urgency Current Visit: Yes Status: Acute (2) S/P ileostomy Current Visit: No Status: Acute (3) Status post reversal of ileostomy Current Visit: No Status: Acute (4) Atrial fibrillation Current Visit: No Status: Chronic Qualifiers: Atrial fibrillation type: unspecified Qualified Code(s): I48.91 - Unspecified atrial fibrillation (5) Diabetes Current Visit: No Status: Chronic Qualifiers: Diabetes mellitus type: type 2 Diabetes mellitus senior care insulin use: without senior care use Diabetes mellitus complication status: with kidney complications Diabetes mellitus complication detail: with chronic kidney disease Chronic kidney disease stage 3 subtype: stage 3b (GFR 30-44) (6) Acute kidney injury Current Visit: Yes Status: Acute - Plan Plan: 1. Hypertensive urgency with acute renal insufficiency; continue with antihype rtensives and plan is to slowly adjust blood pressure medications. Monitor hemodynamics closely. Patient had recurrent issues with uncontrolled hypertension. Hopefully, we can get better control on the oral hypertensives. 2. JOSE; gentle hydration and monitor renal function closely. Pt dizzy this am with pressures in the 100 systolics, seems orthostatic. will obtain orthostatics and if positive give a small 250-500ml bolus 3. Type 2 diabetes; strict blood pressure and blood sugar control 4. Atrial fibrillation; continue with medication for rate control and Eliquis 5. GI DVT prophylaxis Discharge Plan: Home Plan to discharge in: 24 Hours Discharge Plan: Home Plan to discharge in: 24 Hours
[2024-02-06] MEDS: HYDRALAZINE HCL 20 MG/ML VIAL IV ONE (15:53)
[2024-02-06] MEDS: SOD POLYSTYREN SUL 15 GM/60 ML UCUP PO ONE (15:53)
[2024-02-06] MEDS: carvediloL 25 MG TAB PO SCH (17:07)
[2024-02-06] MEDS: ATORVASTATIN 20 MG TAB PO SCH (20:38)
[2024-02-06] MEDS ORDERED: DOXAZOSIN 2 MG TAB PO SCH (21:00)
--- NOTE | 2024-02-07 13:39 | P.PN ---
Subjective Date of Service: 02/07/24 Chief Complaint: Hypertensive urgency/JOSE Pt is resting comfortably in bed. Her BP was elevated this am. Will change NS to 1/2NS. No other issues overnight. Review of Systems General: Unremarkable Eyes: Unremarkable ENT: Unremarkable Respiratory: Unremarkable Cardiovascular: Unremarkable Gastrointestinal: Unremarkable Genitourinary: Unremarkable Musculoskeletal: Unremarkable Integumentary: Unremarkable Neurological: Unremarkable Lymphatics: Unremarkable Physical Examination - Vital Signs Temperature: 97.2 F Blood Pressure: 147/74 Pulse: 101 Respirations: 18 Pulse Ox (%): 98 - Physical Exam General: Alert, In no apparent distress, Oriented x3 HEENT: Atraumatic, Normocephalic Neck: Supple, 2+ carotid pulse no bruit Respiratory: Clear to auscultation bilaterally, Normal air movement Cardiovascular: No edema, Normal pulses, Regular rate/rhythm, Normal S1 S2 Capillary refill: <2 Seconds Gastrointestinal: Normal bowel sounds, Hypoactive, Soft and benign, Non- distended Musculoskeletal: No clubbing, No swelling Integumentary: No rashes, No breakdown Neurological: Normal gait, Normal speech, Normal strength at 5/5 x4 extr, Normal tone, Sensation intact Lymphatics: No axilla or inguinal lymphadenopathy Assessment And Plan - Plan Hypertensive urgency: Will optimize BP regimen. Will change normal saline to 1/2 normal saline. JOSE: Cr is 2.15. Will continue 1/2 NS. Will avoid nephrotoxins and monitor renal function. Type 2 diabetes mellitus: Will continue accuchek, SSI and ADA diet. Hyperkalemia: K is 5.2. Likely due to JOSE. Will give lokelma and monitor. Hyponatremia: Na is 134. Will continue IVF, avoid nephrotoxins and monitor renal function. Anemia: Hgb is 9.1. Will monitor H/H. Atrial fibrillation: Will continue telemetry, beta-jessica and Eliquis. GI ppx: protonix DVT ppx: lovenox. Discharge Plan: Home
[2024-02-07] MEDS: NACHLORIDE 0.45% 1,000 ML IV SCH (14:01)
[2024-02-07] MEDS: HYDROCODONE/APAP 5/325 MG TAB PO PRN (21:26)
[2024-02-08 06:45] LABS: Absolute Basophils 0.1 K/uL (0-0.5); Absolute Eosinophils 0.1 K/uL (0-0.5); Absolute Lymphocytes (CBC) 1.2 K/uL (0.7-4.9); Absolute Monocytes 0.3 K/uL (0.1-1.3); Absolute Neutrophil 4.3 K/uL (1.8-8.0); Hematocrit 27.3 % (36.0-45.0); Hemoglobin 9.3 g/dL (12.0-15.0); Lymphocytes % 20.3 % (15.3-44.8); MCHC 33.9 g/dL (32.0-36.0); MCV 91.2 fL (80-100); MPV 8.4 fL (7.6-11.3); Monocytes % 5.8 % (3.3-12.3); Neutrophils % 70.9 % (41.7-73.7); Nucleated Red Blood Cells % 0.1 % (0-0); Platelets 177 thou/uL (152-406); RBC Red Blood Cell Count 2.99 M/uL (3.86-4.86); Red Cell Distribution Width 12.9 % (12.1-15.2)
[2024-02-08 07:03] LABS: Albumin 3.2 g/dL (3.4-5.0); Albumin/Globulin Ratio 1.1 (1.1-1.8); Anion Gap 9.4 mEq/L (5.0-15.0); Bilirubin Total 0.5 mg/dL (0.2-1.0); Globulin 2.9 g/dL (2.3-3.5); Potassium 4.4 mEq/L (3.5-5.1); Protein, Total 6.1 g/dL (6.4-8.2)
[2024-02-08] MEDS: VALSARTAN 80 MG TAB PO SCH (09:00)
[2024-02-08] MEDS: LABETALOL 20 MG/4ML SYRINGE IV ONE (10:01)
[2024-02-08] MEDS: cloNIDine HCL 0.1 MG TAB PO SCH (11:23)
--- NOTE | 2024-02-08 11:49 | P.PN ---
Subjective Date of Service: 02/08/24 Chief Complaint: Hypertensive urgency/JOSE Pt is resting comfortably in bed. Her BP is uncontrolled. Pt received iv labetalol. No other issues overnight. Review of Systems General: Unremarkable Eyes: Unremarkable ENT: Unremarkable Respiratory: Unremarkable Cardiovascular: Unremarkable Gastrointestinal: Unremarkable Genitourinary: Unremarkable Musculoskeletal: Unremarkable Integumentary: Unremarkable Neurological: Unremarkable Lymphatics: Unremarkable Physical Examination - Vital Signs Temperature: 97.0 F Blood Pressure: 234/76 Pulse: 52 Respirations: 18 Pulse Ox (%): 96 - Physical Exam General: Alert, In no apparent distress, Oriented x3 HEENT: Atraumatic, Normocephalic, PERRLA Neck: Supple, 2+ carotid pulse no bruit Respiratory: Clear to auscultation bilaterally, Normal air movement, Diminished Cardiovascular: No edema, Normal pulses, Regular rate/rhythm, Normal S1 S2 Capillary refill: <2 Seconds Gastrointestinal: Normal bowel sounds, Soft and benign, Non-distended Musculoskeletal: No clubbing, No swelling Integumentary: No rashes, No breakdown Neurological: Normal gait, Normal speech, Normal strength at 5/5 x4 extr, Normal tone, Sensation intact Lymphatics: No axilla or inguinal lymphadenopathy Assessment And Plan - Plan Hypertensive urgency: Will optimize BP regimen. s/p iv labetalol. Will continue home BP regimen. We changed normal saline to 1/2 normal saline. Will check metanephrine an f/u renal ultrasound to r/o renal artery stenosis. JOSE: Cr is 1.59<- 2.15. Will continue 1/2 NS. Will avoid nephrotoxins and monitor renal function. Type 2 diabetes mellitus: Will continue accuchek, SSI and ADA diet. Hyperkalemia: K is 4.4<- 5.2. Likely due to JOSE. Will give lokelma and monitor. Hyponatremia: Na is 132 <- 134. Will continue IVF, avoid nephrotoxins and monitor renal function. Anemia: Hgb is 9.3. Will monitor H/H. Atrial fibrillation: Will continue telemetry, beta-jessica and Eliquis. GI ppx: protonix DVT ppx: lovenox. Discharge Plan: Home
[2024-02-08] MEDS: HYDRALAZINE HCL 20 MG/ML VIAL IV ONE (17:47)
[2024-02-08] MEDS ORDERED: Nicardipine/NS 25 MG/250 ML KIT IV SCH (19:00)
[2024-02-09 07:04] LABS: Absolute Basophils 0.1 K/uL (0-0.5); Absolute Eosinophils 0.1 K/uL (0-0.5); Absolute Lymphocytes (CBC) 1.5 K/uL (0.7-4.9); Absolute Monocytes 0.4 K/uL (0.1-1.3); Absolute Neutrophil 4.4 K/uL (1.8-8.0); Basophils % 0.9 % (0-1.3); Eosinophils % 1.6 % (0-4.4); Hemoglobin 8.9 g/dL (12.0-15.0); Lymphocytes % 22.6 % (15.3-44.8); MCH 30.1 pg (27.0-35.0); MCHC 32.8 g/dL (32.0-36.0); MCV 91.7 fL (80-100); MPV 9.2 fL (7.6-11.3); Monocytes % 6.3 % (3.3-12.3); Neutrophils % 68.6 % (41.7-73.7); Platelets 176 thou/uL (152-406); RBC Red Blood Cell Count 2.95 M/uL (3.86-4.86)
[2024-02-09 07:28] LABS: Anion Gap 9.2 mEq/L (5.0-15.0); Potassium 4.2 mEq/L (3.5-5.1)
--- NOTE | 2024-02-09 09:01 | RAD REPORT ---
EXAM DESCRIPTION: US - Abdomen Pelvis Scan US - 02/09/2024 8:39 am CLINICAL HISTORY: Rule out renal artery stenosis COMPARISON: No comparisons FINDINGS: The bilateral kidneys are mildly atrophic with renal cortical thinning. The right kidney m easures 9.9 cm and the left kidney measures 9 cm. 6 mm left renal cyst. Aortic velocity: 156 cm/second Right proximal renal artery: Not visualized. Right mid renal artery: 51 cm/second Right distal renal artery: 86 cm/second Right renal arcuate artery resistive index: 0.7 Right renal artery / aorta ratio: 0.6 Left proximal renal artery: 48 cm/second Left mid renal artery: 31 cm/second Left distal renal artery: 28 cm/second Left renal arcuate artery resistive index: 0.7 Left renal artery/aorta ratio: 0.3 Normal waveforms demonstrated within the bilateral renal arteries. IMPRESSION: No evidence of hemodynamically significant stenosis within the bilateral renal arteries.
--- NOTE | 2024-02-09 12:08 | P.PN ---
Subjective Date of Service: 02/09/24 Chief Complaint: Hypertensive urgency/JOSE Pt is resting comfortably in bed. Her BP is uncontrolled. Will optimize BP meds. Low threshold to transfer pt to the ICU for cardene drip. Will f/u renal ultrasound to r/o ZHEN and also f/u urine metanephrine. No other issues overnight. Review of Systems General: Unremarkable Eyes: Unremarkable ENT: Unremarkable Respiratory: Unremarkable Cardiovascular: Unremarkable Gastrointestinal: Unremarkable Genitourinary: Unremarkable Musculoskeletal: Unremarkable Integumentary: Unremarkable Neurological: Unremarkable Lymphatics: Unremarkable Physical Examination - Vital Signs Temperature: 98.4 F Blood Pressure: 192/66 Pulse: 51 Respirations: 15 Pulse Ox (%): 99 - Physical Exam General: Alert, In no apparent distress, Oriented x3 HEENT: Atraumatic, Normocephalic, PERRLA Neck: Supple, 2+ carotid pulse no bruit Respiratory: Clear to auscultation bilaterally, Normal air movement Cardiovascular: No edema, Normal pulses, Regular rate/rhythm, Normal S1 S2 Capillary refill: <2 Seconds Gastrointestinal: Normal bowel sounds, Soft and benign, Non-distended Musculoskeletal: No clubbing, No swelling Integumentary: No rashes, No breakdown Neurological: Normal gait, Normal speech, Normal strength at 5/5 x4 extr Lymphatics: No axilla or inguinal lymphadenopathy Assessment And Plan - Plan Hypertensive urgency: Will optimize BP regimen. s/p iv hydralazine. Will continue home BP regimen. Will dc IVF. Will check metanephrine and f/u renal ultrasound to r/o renal artery stenosis. Low threshold to transfer pt to the ICU for cardene drip. JOSE: Cr is 1.49<- 1.59<- 2.15. Will continue to drink water. Off IVF. Will avoid nephrotoxins and monitor renal function. Type 2 diabetes mellitus: Will continue accuchek, SSI and ADA diet. Hyperkalemia: K is 4.2<- 4.4<- 5.2. Likely due to JOSE. Will give lokelma and monitor. Hyponatremia: Na is 135 <- 132 <- 134. Will continue IVF, avoid nephrotoxins and monitor renal function. Anemia: Hgb is 8.9<- 9.3. Will monitor H/H. Atrial fibrillation: Will continue telemetry, beta-jessica and Eliquis. GI ppx: protonix DVT ppx: lovenox. Discharge Plan: Home
[2024-02-09] MEDS: cloNIDine HCL 0.1 MG TAB PO SCH (13:10)
[2024-02-09] MEDS ORDERED: carvediloL 6.25 MG TAB ONE (16:24)
[2024-02-09] MEDS ORDERED: HYDRALAZINE HCL 25 MG TABLET ONE (16:24)
[2024-02-09] MEDS: Nicardipine/NS 25 MG/250 ML KIT IV SCH (16:47)
[2024-02-09] MEDS ORDERED: NACHLORIDE 0.45% 1,000 ML IV ONE (19:23)
[2024-02-09] MEDS ORDERED: VALSARTAN 80 MG TAB ONE (20:12)
[2024-02-09] MEDS ORDERED: cloNIDine HCL 0.1 MG TAB ONE (20:13)
[2024-02-09] MEDS ORDERED: ATORVASTATIN 20 MG TAB ONE (20:46)
[2024-02-10 04:45] LABS: Absolute Basophils 0.1 K/uL (0-0.5); Absolute Eosinophils 0.1 K/uL (0-0.5); Absolute Lymphocytes (CBC) 1.6 K/uL (0.7-4.9); Absolute Monocytes 0.4 K/uL (0.1-1.3); Absolute Neutrophil 4.4 K/uL (1.8-8.0); Basophils % 1.3 % (0-1.3); Hematocrit 25.5 % (36.0-45.0); Hemoglobin 8.5 g/dL (12.0-15.0); Lymphocytes % 23.4 % (15.3-44.8); MCH 30.2 pg (27.0-35.0); MCHC 33.2 g/dL (32.0-36.0); MCV 91.1 fL (80-100); MPV 8.4 fL (7.6-11.3); Monocytes % 6.3 % (3.3-12.3); Platelets 175 thou/uL (152-406); Red Cell Distribution Width 12.9 % (12.1-15.2)
[2024-02-10 04:53] LABS: Anion Gap 9.1 mEq/L (5.0-15.0); Magnesium 1.8 mg/dL (1.6-2.4); Phosphorus 3.1 mg/dL (2.5-4.9); Potassium 4.1 mEq/L (3.5-5.1)
[2024-02-10] MEDS ORDERED: ASPIRIN EC 81 MG TAB PO ONE (08:14)
[2024-02-10] MEDS ORDERED: VALSARTAN 80 MG TAB ONE (08:14)
[2024-02-10] MEDS: minoxidiL 2.5 MG TAB PO SCH (08:21)
[2024-02-10] MEDS: NIFEDIPINE XL 30 MG TABLET PO SCH (08:23)
[2024-02-10] MEDS ORDERED: GABAPENTIN 300 MG CAP ONE ×3 (09:12→19:47)
[2024-02-10] MEDS: GABAPENTIN 300 MG CAP PO SCH (09:42)
[2024-02-10] MEDS ORDERED: NACHLORIDE 0.45% 1,000 ML IV ONE ×2 (10:07→20:09)
[2024-02-10] MEDS: VALSARTAN 160 MG TAB PO SCH (20:05)
[2024-02-10] MEDS ORDERED: ACETAMINOPHEN 500 MG TAB ONE (21:32)
[2024-02-10] MEDS: NIFEdipine 10 MG CAP PO ONE (22:30)
[2024-02-10] MEDS ORDERED: NIFEdipine 10 MG CAP ONE (22:46)
[2024-02-10] MEDS: NIFEDIPINE XL 30 MG TABLET PO STA (22:50)
[2024-02-11] MEDS ORDERED: GABAPENTIN 300 MG CAP ONE ×2 (08:26→19:32)
[2024-02-11] MEDS: HYDRALAZINE HCL 25 MG TABLET PO SCH (08:43)
[2024-02-11] MEDS: minoxidiL 2.5 MG TAB PO SCH (09:00)
[2024-02-11] MEDS: NIFEDIPINE XL 30 MG TABLET PO SCH (09:57)
[2024-02-11] MEDS: minoxidiL 2.5 MG TAB PO ONE (12:03)
[2024-02-11] MEDS ORDERED: NACHLORIDE 0.45% 1,000 ML IV ONE ×2 (14:19→23:41)
[2024-02-12] MEDS ORDERED: ACETAMINOPHEN 500 MG TAB ONE ×2 (02:32→09:53)
[2024-02-12 04:48] LABS: Absolute Basophils 0.1 K/uL (0-0.5); Absolute Eosinophils 0.1 K/uL (0-0.5); Absolute Lymphocytes (CBC) 1.7 K/uL (0.7-4.9); Absolute Monocytes 0.8 K/uL (0.1-1.3); Absolute Neutrophil 7.2 K/uL (1.8-8.0); Basophils % 0.5 % (0-1.3); Eosinophils % 1.3 % (0-4.4); Hematocrit 25.3 % (36.0-45.0); Hemoglobin 8.5 g/dL (12.0-15.0); Lymphocytes % 17.2 % (15.3-44.8); MCH 30.6 pg (27.0-35.0); MCHC 33.7 g/dL (32.0-36.0); MPV 7.9 fL (7.6-11.3); Monocytes % 7.8 % (3.3-12.3); Neutrophils % 73.2 % (41.7-73.7); Platelets 185 thou/uL (152-406); RBC Red Blood Cell Count 2.78 M/uL (3.86-4.86)
[2024-02-12 05:10] LABS: Anion Gap 9.9 mEq/L (5.0-15.0); Potassium 3.9 mEq/L (3.5-5.1)
[2024-02-12] MEDS ORDERED: CLONIDINE 0.1 MG/PATCH TD SCH (09:00)
[2024-02-12] MEDS: SOD FERRIC GLUC COMPLX/SUCROSE 125 MG in NA CHLORIDE 0.9% 100 ML IV SCH (09:06)
[2024-02-12] MEDS: VALSARTAN 40 MG TAB PO SCH (09:09)
[2024-02-12] MEDS ORDERED: GABAPENTIN 300 MG CAP ONE ×2 (09:12→13:08)
[2024-02-12] MEDS ORDERED: NA CHLORIDE 0.9% 1,000 ML IV SCH (20:00)
[2024-02-12] MEDS ORDERED: VALSARTAN 80 MG TAB PO SCH (21:00)
[2024-02-12] MEDS: dexAMETHasone 4 MG/ML VIAL IV ONE (21:06)
[2024-02-12] MEDS: NACHLORIDE 0.45% 1,000 ML IV ONE (23:10)
[2024-02-12] MEDS: NACHLORIDE 0.45% 1,000 ML with NA BICARB 8.4% 50 MEQ IV SCH (23:46)
[2024-02-13 02:16] VITALS: O2SAT 98
--- NOTE | 2024-02-13 08:01 | RAD REPORT ---
EXAM DESCRIPTION: RAD - C Spine Single View - 02/13/2024 6:22 am CLINICAL HISTORY: Neck pain FINDINGS: Anterior fusion C4 through C7 by plate, screws and bone plugs Good alignment of cervical spine. Osteoporosis Mild spondylosis
--- NOTE | 2024-02-13 09:17 | P.PN ---
Subjective Date of Service: 02/13/24 Chief Complaint: Hypertensive urgency/JOSE Pt is resting comfortably in bed. Her BP is uncontrolled. Will optimize BP meds. - Physical Exam General: Alert, In no apparent distress, Oriented x3 HEENT: Atraumatic, Normocephalic, PERRLA Neck: Supple, 2+ carotid pulse no bruit Respiratory: Clear to auscultation bilaterally, Normal air movement Cardiovascular: No edema, Normal pulses, Regular rate/rhythm, Normal S1 S2 Capillary refill: <2 Seconds Gastrointestinal: Normal bowel sounds, Soft and benign, Non-distended Musculoskeletal: No clubbing, No swelling Integumentary: No rashes, No breakdown Neurological: Normal gait, Normal speech, Normal strength at 5/5 x4 extr Lymphatics: No axilla or inguinal lymphadenopathy Review of Systems per hpi Physical Examination - Vital Signs Temperature: 98.6 F Blood Pressure: 164/67 Pulse: 76 Respirations: 17 Pulse Ox (%): 98 Assessment And Plan - Plan Plan Hypertensive urgency: Will optimize BP regimen. s/p iv hydralazine. Will continue home BP regimen. Will dc IVF. Will check metanephrine and f/u renal ultrasound to r/o renal artery stenosis. Low threshold to transfer pt to the ICU for cardene drip. JOSE: Cr is 1.49<- 1.59<- 2.15. Will continue to drink water. Off IVF. Will avoid nephrotoxins and monitor renal function. Follow-up with nephrology after discharge Type 2 diabetes mellitus: Will continue accuchek, SSI and ADA diet. Hyperkalemia: K is 4.2<- 4.4<- 5.2. Likely due to JOSE. Will give lokelma and monitor. Hyponatremia: Na is 135 <- 132 <- 134. Will continue IVF, avoid nephrotoxins and monitor renal function. Anemia: Hgb is 8.9<- 9.3. Will monitor H/H. Iron infusion ordered Atrial fibrillation: Will continue telemetry, beta-jessica and Eliquis. Diet cardiac GI ppx: protonix DVT ppx: lovenox. Discharge Plan: Home Discharge Plan: Home Critical Care: No Time Spent Managing PTS Care (In Minutes): 35
[2024-02-13] MEDS: carvediloL 25 MG TAB PO ONE (10:33)
[2024-02-13] MEDS: CYCLOBENZAPRINE 10 MG TAB PO PRN (11:40)
--- NOTE | 2024-02-13 16:45 | P.DS ---
Admission Date: 02/05/24 Discharge Date: 02/13/24 Reason for Admission: Hypertensive urgency/JOSE Brief History of Present Illness: 78-year-old female who returns back to the emergency room with uncontrolled hypertension. She was told by her PCP that she needed to report back to the ER for better blood pressure control. She has been on numerous blood pressure medications; however, her blood pressure remains poorly controlled. She decided to come into the ER for further evaluation. In the emergency room she had labs that revealed elevated BUN and creatinine. This is mildly different from her baseline. Patient's blood pressure was also initially elevated at 160/80 but after given oral and IV antihypertensives her blood pressure was down to 110/70. Patient will be admitted for observation. - Physical Exam General: Alert, In no apparent distress, Oriented x3 HEENT: Atraumatic, PERRLA, Mucous membr. moist/pink, EOMI, Sclerae nonicteric Neck: Supple, 2+ carotid pulse no bruit, No LAD, Without JVD or thyroid abnormality Respiratory: Clear to auscultation bilaterally, Normal air movement Cardiovascular: Regular rate/rhythm, Normal S1 S2, No murmurs Gastrointestinal: Normal bowel sounds, Soft and benign, Non-distended, No tenderness Musculoskeletal: No clubbing, No swelling, No tenderness Integumentary: No rashes Neurological: Normal gait, Normal speech, Normal strength at 5/5 x4 extr, Normal tone, Sensation intact, Cranial nerves 3-12 intact, Normal affect Lymphatics: No axilla or inguinal lymphadenopathy Hospital Course: 78 year-old female patient presented with uncontrolled atrial fibrillation, hypertension, elevated BUN and creatinine. Was noted to have hypertensive urgency, acute kidney injury. Condition improved with antihypertensives, IV fluids. Patient tolerating diet, stable for discharge to home with follow-up appointment with primary care physician. PROBLEM: Hypertensive urgency improved with IV blood pressure medications while inpatient Atrial fibrillation controlled with cardiac medications p.o. Acute kidney injury improved with IV fluid Muscle spasm improved with as needed antispasmodics Discharged home on Procardia 30 mg twice daily Loniten 5 mg twice daily Flexeril 5 mg 1 tablet twice daily for muscle spasm Resume beta-jessica, Eliquis 2.5 twice daily after discharge Follow-up with cardiology after discharge Continue home medicines as previously prescribed GOAL: Clear understanding of disease process INSTRUCTIONS: Physician Discharge Instructions: -DC IV and DC home -Follow-up with PCP in 1 to 2 weeks -Please call Dr. Cooper at [phone] if any questions regarding hospital stay -Please call nursing station at [phone] if any nursing or medication questions -Return to the emergency room if symptoms worsen Diet: ADA, low sodium Activity: Fall precautions <Naina Calvert - Last Filed: 02/13/24 16:46> Admission Date: 02/05/24 Discharge Date: 02/13/24 - Problems (1) Hypertensive urgency Status: Acute (2) S/P ileostomy Status: Acute (3) Status post reversal of ileostomy Status: Acute (4) Atrial fibrillation Status: Chronic Qualifiers: Atrial fibrillation type: unspecified Qualified Code(s): I48.91 - Unspecified atrial fibrillation (5) Diabetes Status: Chronic Qualifiers: Diabetes mellitus type: type 2 Diabetes mellitus long term care social worker insulin use: without long term care social worker use Diabetes mellitus complication status: with kidney complications Diabetes mellitus complication detail: with chronic kidney disease Chronic kidney disease stage 3 subtype: stage 3b (GFR 30-44) (6) Acute kidney injury Status: Acute Hospital Course: Patient is clinically doing much better. Patient denies any new complaints. We adjusted patient's oral antihypertensives. Patient blood pressure has improved. Arrange for discharge planning. Patient will have additional BP meds going forward. Will arrange for discharge home with outpatient follow-up. Patient has done well during hospital stay. Patient's clinical symptoms have improved. Patient will continue with medical therapy as an outpatient. Patient will follow-up with consultants and PCP as an outpatient in 1 to 2 weeks. Patient chart was reviewed and patient was seen and examined. Agree with DC assessment and plan. Patient presented with uncontrolled hypertension and we had to control with intravenous antihypertensives. Most of the MDM was done by myself and plan of care was discussed with KATLIN as well as the patient. Plan to discharge home with outpatient follow-up. <Marylou Cooper - Last Filed: 02/15/24 09:09> Disposition: ROUTINE DISCHARGE Discharge Condition: GOOD Vital Signs/Physical Exam: Temp Pulse Resp BP Pulse Ox 97.3 F 75 18 113/63 98 02/13/24 12:00 02/13/24 12:00 02/13/24 12:00 02/13/24 12:00 02/13/24 12:00 Laboratory Data at Discharge: WBC 9.80 thou/uL (4.3-10.9) 02/12/24 04:24 Hgb 8.5 g/dL (12.0-15.0) L 02/12/24 04:24 Hct 25.3 % (36.0-45.0) L 02/12/24 04:24 Plt Count 185 thou/uL (152-406) 02/12/24 04:24 PT 12.3 SECONDS (9.5-12.5) 02/05/24 20:33 INR 1.12 02/05/24 20:33 Sodium 130 mEq/L (136-145) L 02/12/24 04:24 Potassium 3.9 mEq/L (3.5-5.1) 02/12/24 04:24 BUN 30 mg/dL (7-18) H 02/12/24 04:24 Creatinine 1.88 mg/dL (0.55-1.02) H 02/12/24 04:24 Glucose 176 mg/dL (74-106) H 02/12/24 04:24 Phosphorus 3.1 mg/dL (2.5-4.9) 02/10/24 04:23 Magnesium 1.8 mg/dL (1.6-2.4) 02/10/24 04:23 Total Bilirubin 0.5 mg/dL (0.2-1.0) 02/08/24 06:10 AST 17 U/L (15-37) 02/08/24 06:10 ALT 29 U/L (13-56) 02/08/24 06:10 Alkaline Phosphatase 58 U/L (45-117) 02/08/24 06:10 Triglycerides 55 mg/dL (<150) 02/06/24 08:16 Cholesterol 61 mg/dL (<200) 02/06/24 08:16 LDL Cholesterol Direct 10 mg/dL (100-129) L 02/06/24 08:16 HDL Cholesterol 52 mg/dL (40-60) 02/06/24 08:16 Cholesterol/HDL Ratio 1.17 02/06/24 08:16 Lipase 74 U/L (13-75) 02/05/24 20:33 <Naina Calvert - Last Filed: 02/13/24 16:46> Vital Signs/Physical Exam: Temp Pulse Resp BP Pulse Ox 98.6 F 76 17 164/67 H 98 02/15/24 09:05 02/15/24 09:05 02/15/24 09:05 02/15/24 09:05 02/15/24 09:05 General: Alert, In no apparent distress, Oriented x3 Laboratory Data at Discharge: WBC 9.80 thou/uL (4.3-10.9) 02/12/24 04:24 Hgb 8.5 g/dL (12.0-15.0) L 02/12/24 04:24 Hct 25.3 % (36.0-45.0) L 02/12/24 04:24 Plt Count 185 thou/uL (152-406) 02/12/24 04:24 PT 12.3 SECONDS (9.5-12.5) 02/05/24 20:33 INR 1.12 02/05/24 20:33 Sodium 130 mEq/L (136-145) L 02/12/24 04:24 Potassium 3.9 mEq/L (3.5-5.1) 02/12/24 04:24 BUN 30 mg/dL (7-18) H 02/12/24 04:24 Creatinine 1.88 mg/dL (0.55-1.02) H 02/12/24 04:24 Glucose 176 mg/dL (74-106) H 02/12/24 04:24 Phosphorus 3.1 mg/dL (2.5-4.9) 02/10/24 04:23 Magnesium 1.8 mg/dL (1.6-2.4) 02/10/24 04:23 Total Bilirubin 0.5 mg/dL (0.2-1.0) 02/08/24 06:10 AST 17 U/L (15-37) 02/08/24 06:10 ALT 29 U/L (13-56) 02/08/24 06:10 Alkaline Phosphatase 58 U/L (45-117) 02/08/24 06:10 Triglycerides 55 mg/dL (<150) 02/06/24 08:16 Cholesterol 61 mg/dL (<200) 02/06/24 08:16 LDL Cholesterol Direct 10 mg/dL (100-129) L 02/06/24 08:16 HDL Cholesterol 52 mg/dL (40-60) 02/06/24 08:16 Cholesterol/HDL Ratio 1.17 02/06/24 08:16 Lipase 74 U/L (13-75) 02/05/24 20:33 <Marylou Cooper - Last Filed: 02/15/24 09:09> Diet: AHA Activity: Fall precautions Time spent managing pt's care (in minutes): 55 <Naina Calvert - Last Filed: 02/13/24 16:46> <Marylou Cooper - Last Filed: 02/15/24 09:09> Home Medications: RX: Calcium Carbonate/Mag Carb [Magnebind 400 Tablet] 1 each PO TIDWM 30 Days #90 tablet 04/16/22 RX: Aspirin [Aspirin EC 81 MG] 81 mg PO DAILY 01/22/24 RX: Atorvastatin Calcium [Lipitor*] 20 mg PO BEDTIME 01/22/24 RX: Gabapentin [Neurontin*] 600 mg PO TID 01/22/24 RX: Na Bicarb Tab [Sodium Bicarb 325 MG Tab*] 650 mg PO BID 01/22/24 RX: Hydrocodone 5/APAP 325 [Hondo 5/325*] 1 tab PO Q6HP PRN #30 tab 01/25/24 RX: Spironolactone [Aldactone*] 25 mg PO DAILY #30 tab 01/25/24 RX: carvediloL [Coreg*] 25 mg PO BID 6AM 6PM #60 tab 01/25/24 RX: Apixaban [Eliquis *] 2.5 mg PO BID 02/06/24 RX: Cyclobenzaprine [Flexeril*] 5 mg PO BIDP PRN #30 tab 02/13/24 RX: Nifedipine Xl [Procardia Xl*] 30 mg PO BID #60 tab 02/13/24 RX: minoxidiL [Loniten*] 5 mg PO BID #120 tab 02/13/24 New Medications: RX: Cyclobenzaprine [Flexeril*] 5 mg PO BIDP PRN #30 tab PRN Reason: Muscle Spasms RX: minoxidiL [Loniten*] 5 mg PO BID #120 tab RX: Nifedipine Xl [Procardia Xl*] 30 mg PO BID #60 tab Physician Discharge Instructions: -DC IV and DC home -Follow-up with PCP in 1 to 2 weeks -Follow-up with Cardiology in 1 to 2 weeks -Please call Dr. Cooper at [phone] if any questions regarding hospital stay -Please call nursing station at [phone] if any nursing or medication questions -Return to the emergency room if symptoms worsen Followup: Serge Morales MD [ACTIVE - CAN ADMIT] - 1-2 Weeks Mary Jane Mejia MD [Primary Care Provider] - 1-2 Weeks
[2024-02-13 17:12] VITALS: BP 164/67; TEMP 98.6
--- NOTE | 2024-02-15 08:59 | P.PN ---
Subjective Date of Service: 02/10/24 Subjective: No new changes, No C/O voiced, Improving Review of Systems 10-point ROS is otherwise unremarkable Physical Examination - Vital Signs Temperature: 98.6 F Blood Pressure: 164/67 Pulse: 76 Respirations: 17 Pulse Ox (%): 98 - Physical Exam General: Alert, In no apparent distress, Oriented x3 HEENT: Atraumatic, PERRLA, EOMI Neck: Supple, JVD not distended Respiratory: Clear to auscultation bilaterally, Normal air movement Cardiovascular: Regular rate/rhythm, Normal S1 S2 Gastrointestinal: Normal bowel sounds, No tenderness Musculoskeletal: No tenderness Integumentary: No rashes Neurological: Normal speech, Normal tone, Normal affect Lymphatics: No axilla or inguinal lymphadenopathy - Studies Medications List Reviewed: Yes Assessment & Plan - Problems (Diagnosis) (1) Hypertensive urgency Status: Acute (2) S/P ileostomy Status: Acute (3) Status post reversal of ileostomy Status: Acute (4) Atrial fibrillation Status: Chronic Qualifiers: Atrial fibrillation type: unspecified Qualified Code(s): I48.91 - Unspecified atrial fibrillation (5) Diabetes Status: Chronic Qualifiers: Diabetes mellitus type: type 2 Diabetes mellitus intermodal dispatcher insulin use: without jail use Diabetes mellitus complication status: with kidney complications Diabetes mellitus complication detail: with chronic kidney disease Chronic kidney disease stage 3 subtype: stage 3b (GFR 30-44) (6) Acute kidney injury Status: Acute - Plan Plan: 1. Hypertensive urgency with acute renal sufficiency; continue with antihypertensives and plan is to slowly adjust blood pressure medications. Monitor hemodynamics closely. Patient had recurrent issues with uncontrolled hypertension. Hopefully, we can get better control on the new oral hypertensives. Continue with minoxidil. Continue with Procardia. Will monitor hemodynamics closely. 2. JOSE; gentle hydration and monitor renal function closely 3. Type 2 diabetes; strict blood pressure and blood sugar control 4. Atrial fibrillation; continue with medication for rate control 5. GI DVT prophylaxis Discharge Plan: Home Plan to discharge in: Greater than 2 days - Advance Directives Does patient have a Living Will: No Does patient have a Durable POA for Healthcare: No - Code Status/Comfort Care Code Status: Full Code Critical Care: Yes Time Spent Managing PTS Care (In Minutes): 50
--- NOTE | 2024-02-15 09:01 | P.PN ---
Subjective Date of Service: 02/11/24 Subjective: No new changes, No C/O voiced, Improving Patient denies any new complaints. Patient's clinical symptoms are stable. Review of Systems 10-point ROS is otherwise unremarkable Physical Examination - Vital Signs Temperature: 98.6 F Blood Pressure: 164/67 Pulse: 76 Respirations: 17 Pulse Ox (%): 98 - Physical Exam General: Alert, In no apparent distress, Oriented x3 HEENT: Atraumatic, PERRLA, EOMI Neck: Supple, JVD not distended Respiratory: Clear to auscultation bilaterally, Normal air movement Cardiovascular: Regular rate/rhythm, Normal S1 S2 Gastrointestinal: Normal bowel sounds, Soft and benign, Non-distended, No tenderness Musculoskeletal: No clubbing, No swelling, No tenderness Integumentary: No rashes Neurological: Sensation intact, Cranial nerves 3-12 intact - Studies Medications List Reviewed: Yes Assessment & Plan - Problems (Diagnosis) (1) Hypertensive urgency Status: Acute (2) S/P ileostomy Status: Acute (3) Status post reversal of ileostomy Status: Acute (4) Atrial fibrillation Status: Chronic Qualifiers: Atrial fibrillation type: unspecified Qualified Code(s): I48.91 - Unspecified atrial fibrillation (5) Diabetes Status: Chronic Qualifiers: Diabetes mellitus type: type 2 Diabetes mellitus medical terminologist insulin use: without halfway use Diabetes mellitus complication status: with kidney complications Diabetes mellitus complication detail: with chronic kidney disease Chronic kidney disease stage 3 subtype: stage 3b (GFR 30-44) (6) Acute kidney injury Status: Acute - Plan Plan: 1. Hypertensive urgency with acute renal sufficiency; adjusted patient's blood pressure medications. Continue with minoxidil. Continue with Procardia. Will monitor hemodynamics closely. 2. JOSE; renal function has been stable and improving. 3. Type 2 diabetes; continue with strict blood sugar control 4. Atrial fibrillation; continue with medication for rate control along with anticoagulation. 5. GI DVT prophylaxis Discharge Plan: Home Plan to discharge in: 24 Hours - Advance Directives Does patient have a Living Will: No Does patient have a Durable POA for Healthcare: No - Code Status/Comfort Care Code Status: Full Code Critical Care: No Time Spent Managing PTS Care (In Minutes): 35
--- NOTE | 2024-02-15 09:05 | P.PN ---
Subjective Date of Service: 02/12/24 Patient blood pressure has been much better controlled. We have adjusted minoxidil. We have increased to 5 mg twice a day. Procardia is at 30 mg XL twice a day. Patient is continuing to do much better. Patient denies any complaints. Renal function is stable. Anticipate discharge over the next 24 to 48 hours along the patient is blood pressure and hemodynamics are stable. Review of Systems 10-point ROS is otherwise unremarkable Physical Examination - Vital Signs Temperature: 98.6 F Blood Pressure: 164/67 Pulse: 76 Respirations: 17 Pulse Ox (%): 98 - Physical Exam General: Alert, In no apparent distress, Oriented x3 Respiratory: Clear to auscultation bilaterally, Normal air movement Cardiovascular: Regular rate/rhythm, Normal S1 S2 Gastrointestinal: Normal bowel sounds, Soft and benign, Non-distended, No tenderness Musculoskeletal: No tenderness Neurological: Sensation intact, Cranial nerves 3-12 intact - Studies Medications List Reviewed: Yes Assessment & Plan - Problems (Diagnosis) (1) Hypertensive urgency Status: Acute (2) S/P ileostomy Status: Acute (3) Status post reversal of ileostomy Status: Acute (4) Atrial fibrillation Status: Chronic Qualifiers: Atrial fibrillation type: unspecified Qualified Code(s): I48.91 - Unsp ecified atrial fibrillation (5) Diabetes Status: Chronic Qualifiers: Diabetes mellitus type: type 2 Diabetes mellitus long wall mining machine helper insulin use: without long wall mining machine helper use Diabetes mellitus complication status: with kidney complications Diabetes mellitus complication detail: with chronic kidney disease Chronic kidney disease stage 3 subtype: stage 3b (GFR 30-44) (6) Acute kidney injury Status: Acute - Plan Plan: 1. Hypertensive urgency with acute renal sufficiency; adjusted patient's blood pressure medications. Patient minoxidil dosing was increased. Procardia dosage is remaining at 30 mg. Patient denies any new complaints. Patient feels much better. Patient's additional blood pressure medication have been adjusted. We discontinued a couple of patient's BP meds. 2. JOSE; renal function has been stable and improving. Continue with renal function monitoring. 3. Type 2 diabetes; continue with strict blood sugar control 4. Atrial fibrillation; continue with medication for rate control along with anticoagulation. 5. GI DVT prophylaxis Discharge Plan: Home Plan to discharge in: Greater than 2 days - Advance Directives Does patient have a Living Will: No Does patient have a Durable POA for Healthcare: No - Code Status/Comfort Care Code Status: Full Code Critical Care: No Time Spent Managing PTS Care (In Minutes): 35
== END 2024-02-13 14:30 | disposition home or self-care (01) | DRG 683 ==
LOC: ER 19:35 → ERHOLD 23:09 → 4TH 02-06 01:17 → 3RD-ICU 02-09 16:12 → 4TH 02-12 17:08
PROVIDERS: ADMIT Hospitalist; ATTEND Hospitalist
DX: N17.9 Acute kidney failure, unspecified (principal); E87.1 Hypo-osmolality and hyponatremia; I16.1 Hypertensive emergency; I48.91 Unspecified atrial fibrillation; H91.90 Unspecified hearing loss, unspecified ear; I12.9 Hypertensive chronic kidney disease with stage 1 through stage 4 chronic kidney disease, or unspecified chronic kidney disease; N18.30 Chronic kidney disease, stage 3 unspecified; E11.22 Type 2 diabetes mellitus with diabetic chronic kidney disease; D63.1 Anemia in chronic kidney disease; E87.5 Hyperkalemia; Z93.3 Colostomy status; Z88.1 Allergy status to other antibiotic agents; Z79.84 Long term (current) use of oral hypoglycemic drugs; Z79.82 Long term (current) use of aspirin; Z79.01 Long term (current) use of anticoagulants; Z79.02 Long term (current) use of antithrombotics/antiplatelets; Z87.891 Personal history of nicotine dependence; Z79.899 Other long term (current) drug therapy; Z90.710 Acquired absence of both cervix and uterus
CPT/HCPCS: 36415; 70450; 71045; 72020; 80048; 80053; 80061; 80076; 81001; 82384; 82530; 82947; 83540; 83690; 83735; 83835; 83880; 83970; 84100; 84484; 84585; 85025; 85610; 93005; 93975; 96360; 96361; 99285; J0360; J1100; J2270; J2405; J2916; J7030; Q0162

== ENCOUNTER 2024-02-16 08:58 | Inpatient (IN) | payer MEDICARE ==
[2024-02-16] MEDS ORDERED: DIPHENHYDRAMINE 50 MG/ML VIAL ONE (09:38)
[2024-02-16 10:02] LABS: Absolute Basophils 0.1 K/uL (0-0.5); Absolute Eosinophils 0.2 K/uL (0-0.5); Absolute Lymphocytes (CBC) 1.1 K/uL (0.7-4.9); Absolute Monocytes 0.7 K/uL (0.1-1.3); Absolute Neutrophil 7.2 K/uL (1.8-8.0); Basophils % 0.7 % (0-1.3); Eosinophils % 1.8 % (0-4.4); Hematocrit 24.2 % (36.0-45.0); Hemoglobin 8.5 g/dL (12.0-15.0); Lymphocytes % 12.4 % (15.3-44.8); MCHC 35.2 g/dL (32.0-36.0); MCV 88.2 fL (80-100); MPV 8.1 fL (7.6-11.3); Monocytes % 7.3 % (3.3-12.3); Neutrophils % 77.8 % (41.7-73.7); Platelets 227 thou/uL (152-406); RBC Red Blood Cell Count 2.74 M/uL (3.86-4.86); Red Cell Distribution Width 12.5 % (12.1-15.2)
[2024-02-16 10:23] LABS: Anion Gap 13.7 mEq/L (5.0-15.0); Bilirubin Direct 0.2 mg/dL (0-0.2); Bilirubin Indirect, Calculated 0.3 mg/dL (0.2-0.8); Bilirubin Total 0.5 mg/dL (0.2-1.0); Globulin 3.1 g/dL (2.3-3.5); Potassium 3.7 mEq/L (3.5-5.1); Protein, Total 6.1 g/dL (6.4-8.2); Troponin High Sensitivity 898.1 pg/mL (<58.9)
[2024-02-16] MEDS ORDERED: METHYLPREDNISOLONE 125 MG INJ ONE (10:24)
[2024-02-16] MEDS ORDERED: LEVALBUTEROL 1.25 MG/3 ML NEB ONE (10:24)
[2024-02-16] MEDS ORDERED: FUROSEMIDE 20 MG/ 2ML VIAL ONE (10:46)
--- NOTE | 2024-02-16 10:56 | RAD REPORT ---
EXAM DESCRIPTION: RADChest Single View02/16/2024 10:36 am CLINICAL HISTORY: DYSPNEA COMPARISON: Chest Single View dated 02/05/2024; Chest Single View dated 01/22/2024; Chest Single View dated 01/16/2024; Chest Single View dated 09/08/2023 TECHNIQUE: Portable AP view of the chest. FINDINGS: The lungs are clear. No pneumothorax or effusion. The cardiomediastinal contours are unre markable. IMPRESSION: No acute cardiopulmonary process.
--- NOTE | 2024-02-16 11:12 | EDPHYS ---
Physician Documentation [facility] Name: Jesi Lee Age: 78 yrs Sex: Female : 1945 Arrival Date: 02/16/2024 Time: 08:58 Bed 19 Private MD: ED Physician Rishi Patino HPI: 02/15 09:19 This 78 yrs old Female presents to ER via Ambulatory with complaints of Shortness rn Of Breath, Leg Swelling, Feet Swelling, Facial Swelling. 09:19 The patient has shortness of breath at rest. rn 09:20 Patient reports generalized swelling that began yesterday. Reports prolonged hospital rn stay, approximately a week, was admitted for hypertension and kidney problems. Started on 3 new medications and denies any swelling during the hospitalization. At home started to notice swelling around the eyes and legs associated with shortness of breath. Denies itching or rash. No focal swelling. No oral swelling.. Onset: The symptoms/episode began/occurred last night. Severity of symptoms: At their worst the symptoms were moderate in the emergency department the symptoms are unchanged. The patient has not experienced similar symptoms in the past. The patient has been recently been admitted at [facility]. Historical: - Allergies: 09:15 Cipro; ld1 - PMHx: 09:15 Atrial fibrillation; Diverticulitis; Hypertension; Diabetes; ruptured bowel; ld1 - PSHx: 09:15 bowel resection with colostomy and reversal; hysterectomy; ld1 - Immunization history:: Adult Immunizations up to date. - Infectious Disease History:: Denies. - Social history:: Smoking status: Patient denies any tobacco usage or history of. Patient/guardian denies using alcohol. - Family history:: not pertinent. - Hospitalizations: : The patient was recently seen at [facility]. ROS: 09:20 Constitutional: Negative for fever, chills, and weight loss, Eyes: Positive for rn periorbital edema ENT: No oral swelling Cardiovascular: Negative for chest pain, palpitations, and edema, Respiratory: Positive for shortness of breath and wheezing Abdomen/GI: Negative for abdominal pain, nausea, vomiting, diarrhea, and constipation, MS/Extremity: Positive for lower extremity swelling Skin: Negative for rash or itching Neuro: Positive for generalized weakness and malaise Exam: 09:20 Constitutional: This is a well developed, well nourished patient who is awake, alert, rn and in no acute distress. Head/Face: Normocephalic, atraumatic. Eyes: Bilateral upper eyelid edema, no erythema ENT: No stridor, no lingual swelling Cardiovascular: Regular rate, irregular rhythm. No pulse deficits. Respiratory: Mild tachypnea, faint wheezing Abdomen/GI: Soft, non-tender MS/ Extremity: Pulses equal, no cyanosis Neuro: Awake and alert, GCS 15 Vital Signs: 09:14 BP 166 / 57; Pulse 68; Resp 18; Temp 98.1(TE); Pulse Ox 100% on R/A; Pain 0/10; ld1 09:51 Weight 70.31 kg; Height 5 ft. 4 in. ; ld1 09:51 Body Mass Index 26.61 (70.31 kg, 162.56 cm) ld1 09:14 Pain Scale: Adult ld1 MDM: 09:00 Patient medically screened. rn 11:09 Differential Diagnosis Allergic reaction, volume overload, anasarca, pulmonary edema. rn Data reviewed: vital signs, nurses notes, old medical records, lab test result(s), EKG, radiologic studies, and as a result, I will admit patient. Consideration of Admission/Observation Patient was admitted/placed on observation. Escalation of care including admission/observation considered. Independent interpretation of the following test(s) in the Emergency Department EKG: See my EKG interpretation above X-Ray: My interpretation is Chest x-ray images negative for pneumothorax or pleural effusion per my interpretation. Counseling: I had a detailed discussion with the patient and/or guardian regarding the historical points, exam findings, and any diagnostic results supporting the discharge/admit diagnosis, lab results, radiology results, the need for further work-up and treatment in the hospital. 02/15 09:11 Order name: Basic Metabolic Panel; Complete Time: 10:27 rn 02/15 09:11 Order name: CBC with Diff; Complete Time: 10:12 rn 02/15 09:11 Order name: LFT's; Complete Time: 10:27 rn 02/15 09:11 Order name: NT PRO-BNP; Complete Time: 10:27 rn 02/15 09:11 Order name: Troponin HS; Complete Time: 10: rn 02/15 12:03 Order name: Urinalysis w/ reflexes EDMS 04/08 12:03 Order name: Basic Metabolic Panel EDMS 02/15 12:03 Order name: Basic Metabolic Panel EDMS 02/15 12:03 Order name: CBC with Automated Diff EDMS 02/15 12:03 Order name: CBC with Automated Diff EDMS 02/15 12:03 Order name: Magnesium EDMS 02/15 12:03 Order name: Magnesium EDMS 02/15 12:03 Order name: Phosphorus EDMS 02/15 12:03 Order name: Phosphorus EDMS 02/15 12:03 Order name: Troponin High Sensitivity EDMS 02/15 12:03 Order name: Troponin High Sensitivity EDMS 02/15 12:03 Order name: Troponin High Sensitivity EDMS 02/15 09:11 Order name: XRAY Chest (1 view); Complete Time: 11:02 rn 02/15 09:11 Order name: Cardiac monitoring; Complete Time: 09:14 rn 02/15 09:11 Order name: EKG - Nurse/Tech; Complete Time: 09:51 rn 02/15 09:11 Order name: IV Saline Lock; Complete Time: 09:37 rn 02/15 09:11 Order name: Labs collected and sent; Complete Time: 09:51 rn 02/15 09:11 Order name: O2 Per Protocol; Complete Time: 09:14 rn 02/15 09:11 Order name: O2 Sat Monitoring; Complete Time: 09:14 rn Administered Medications: 09:50 Drug: diphenhydrAMINE IVP 25 mg IVP once Route: IVP; Site: right upper arm; ld1 10:33 Drug: Levalbuterol Inhalation 1.25 mg Inhalation once Route: Inhalation; ld1 10:33 Drug: MethylPrednisoLONE IVP 125 mg IVP once Route: IVP; Site: right upper arm; ld1 10:48 Drug: Furosemide IVP 20 mg IVP once; give over 2 minutes Route: IVP; Site: right upper ld1 arm; Disposition Summary: 02/16/24 11:11 Hospitalization Ordered Notes: Hospitalization Status: Inpatient Admission rn Provider: Gilson Howell rn Location: Telemetry/MedSurg (Inpatient) rn Condition: Stable rn Problem: new rn Symptoms: have improved rn Bed/Room Type: Standard rn Room Assignment: 421(02/16/24 12:51) bd Diagnosis - Dyspnea, unspecified rn - Generalized edema rn - Hypo-osmolality and hyponatremia rn - Adverse effect of unspecified drugs, medicaments and biological substances rn Forms: - Medication Reconciliation Form rn - SBAR form rn - Leadership Thank You Letter rn Signatures: Dispatcher [employer] Valentine Olivia Roman, MD MD rn Sims, Lauren, RN RN ld1 Corrections: (The following items were deleted from the chart) 12:51 11:11 will gross
--- NOTE | 2024-02-16 11:12 | ER ---
Nurse's Notes [facility] Name: Jesi Lee Age: 78 yrs Sex: Female : 1945 Arrival Date: 02/16/2024 Time: 08:58 Bed 19 Private MD: Diagnosis: Dyspnea, unspecified;Generalized edema;Hypo-osmolality and hyponatremia;Adverse effect of unspecified drugs, medicaments and biological substances Presentation: 02/15 09:14 Chief complaint: Patient states: PT c/o swelling to face, legs and SOB since being ld1 discharged from hospital last night. Jerry pain. Coronavirus screen: At this time, the client does not indicate any symptoms associated with coronavirus-19. Ebola Screen: No symptoms or risks identified at this time. Initial Sepsis Screen: Does the patient meet any 2 criteria? No. Patient's initial sepsis screen is negative. Does the patient have a suspected source of infection? No. Patient's initial sepsis screen is negative. Risk Assessment: Do you want to hurt yourself or someone else? Patient reports no desire to harm self or others. Onset of symptoms was February 16, 2024. 09:14 Method Of Arrival: Ambulatory ld1 09:14 Acuity: RENETTA 3 ld1 Triage Assessment: 09:15 General: Appears in no apparent distress. comfortable, Behavior is calm, cooperative, ld1 appropriate for age. Pain: Denies pain. EENT: No deficits noted. Neuro: Level of Consciousness is awake, alert, obeys commands, Oriented to person, place, time, situation. Cardiovascular: Capillary refill < 3 seconds Patient's skin is warm and dry. Rhythm is sinus rhythm. Respiratory: Reports shortness of breath at rest Airway is patent Respiratory effort is even, unlabored, Onset: The symptoms/episode began/occurred gradually, the patient has mild shortness of breath. GI: Abdomen is flat, non-distended. : No signs and/or symptoms were reported regarding the genitourinary system. Derm: No signs and/or symptoms reported regarding the dermatologic system. Musculoskeletal: No signs and/or symptoms reported regarding the musculoskeletal system. Historical: - Allergies: 09:15 Cipro; ld1 - PMHx: 09:15 Atrial fibrillation; Diverticulitis; Hypertension; Diabetes; ruptured bowel; ld1 - PSHx: 09:15 bowel resection with colostomy and reversal; hysterectomy; ld1 - Immunization history:: Adult Immunizations up to date. - Infectious Disease History:: Denies. - Social history:: Smoking status: Patient denies any tobacco usage or history of. Patient/guardian denies using alcohol. - Family history:: not pertinent. - Hospitalizations: : The patient was recently seen at [facility]. Screenin:16 [facility] ED Fall Risk Assessment (Adult) History of falling in the last 3 months, ld1 including since admission No falls in past 3 months (0 pts). Abuse screen: Denies threats or abuse. Denies injuries from another. Nutritional screening: No deficits noted. Tuberculosis screening: No symptoms or risk factors identified. Assessment: 09:16 Reassessment: See triage assessment. Cardiovascular: Capillary refill < 3 seconds ld1 Patient's skin is warm and dry. Cardiovascular: Rhythm is sinus rhythm. Respiratory: Airway is patent Respiratory effort is even, unlabored, Breath sounds are clear bilaterally. Vital Signs: 09:14 BP 166 / 57; Pulse 68; Resp 18; Temp 98.1(TE); Pulse Ox 100% on R/A; Pain 0/10; ld1 09:51 Weight 70.31 kg; Height 5 ft. 4 in. ; ld1 09:51 Body Mass Index 26.61 (70.31 kg, 162.56 cm) ld1 09:14 Pain Scale: Adult ld1 ED Course: 08:59 Patient arrived in ED. im 09:00 Rishi Patino MD is Attending Physician. rn 09:02 Emmy Beckman, RAUL is Primary Nurse. ld1 09:15 Triage completed. ld1 09:15 Arm band placed on right wrist. ld1 09:16 Patient has correct armband on for positive identification. Placed in gown. Bed in low ld1 position. Call light in reach. Side rails up X2. campus monitor on. Pulse ox on. NIBP on. Door closed. Noise minimized. Warm blanket given. 09:16 No provider procedures requiring assistance completed. ld1 09:51 Inserted saline lock: 24 gauge in right upper arm, using aseptic technique. Blood ld1 collected. 10:38 XRAY Chest (1 view) In Process Unspecified. EDMS 11:10 Marylou Cooper MD is Hospitalizing Provider. rn 11:10 Gilson Howell is Hospitalizing Provider. rn Administered Medications: 09:50 Drug: diphenhydrAMINE IVP 25 mg IVP once Route: IVP; Site: right upper arm; ld1 10:33 Drug: Levalbuterol Inhalation 1.25 mg Inhalation once Route: Inhalation; ld1 10:33 Drug: MethylPrednisoLONE IVP 125 mg IVP once Route: IVP; Site: right upper arm; ld1 10:48 Drug: Furosemide IVP 20 mg IVP once; give over 2 minutes Route: IVP; Site: right upper ld1 arm; Medication: 09:16 VIS not applicable for this client. ld1 Outcome: 11:11 Decision to Hospitalize by Provider. rn 14:07 Patient left the ED. ld1 Signatures: Dispatcher [employer] EDRishi Cole MD MD rn Sims, Lauren, RN RN ld1 Katty Bowman
--- NOTE | 2024-02-16 12:08 | P.HP ---
Certification for Inpatient Patient admitted to: Observation With expected LOS: <2 Midnights Patient will require the following post-hospital care: None Practitioner: I am a practitioner with admitting privileges, knowledge of patient current condition, hospital course, and medical plan of care. Services: Services provided to patient in accordance with Admission requirements found in Title 42 Section 412.3 of the Code of Federal Regulations <Mely Anaya - Last Filed: 02/16/24 17:53> Patient History Date of Service: 02/16/24 Reason for admission: allergic reaction, fluid volume overload History of Present Illness: Jesi Lee is a 78 year old female with Pmhx Atrial fibrillation, hypertension, diabetes mellitus type 2, high cholesterol, chronic renal disease presents to the ED with chief complaint of facial swelling that started last night at midnight. She was discharged on new medications. On examination, she h as audible wheezing, murmur noted, bilateral lung sound with crackles. Lab evaluation showing fluid volume overload with hyponatremia. Lasix, steroids, and benadryl given in the ED which she tolerated well. On examination mid facial swelling noted without swelling or edema to bilateral lower extremity, audible wheezing noted with expiratory wheezing on auscultation. Initial vitals BP 166 / 57; Pulse 68; Resp 18; Temp 98.1(TE); Pulse Ox 100% Labarotory evaluation H&H 8.5/24.2, sodium 118, CO2 19, BNP 5910, troponin 898.1 creatinine 45/2.05, GFR 24, serum glucose 167 Chest x-ray reports "no acute cardiopulmonary process" Jesi will be admitted to hospitalist service for further evaluation and treatment of allergic reaction, hyponatremia, elevated troponin. 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 She is . - Family History Mother -: Hypertension, Diabetes Sister -: Hypertension, Diabetes Dad & Mom -: Hypertension, Diabetes - Social History Alcohol use: No CD- Drugs: No Caffeine use: Yes <Mely Anaya - Last Filed: 02/16/24 17:53> Date of Service: 02/16/24 <raymundo rojas - Last Filed: 02/16/24 20:12> Allergies No Known Allergies Allergy (Verified 08/24/19 13:01) Home Medications: Aspirin [Aspirin EC 81 MG] 81 mg PO DAILY 01/22/24 Atorvastatin Calcium [Lipitor*] 20 mg PO BEDTIME 01/22/24 Gabapentin [Neurontin*] 600 mg PO TID 01/22/24 Na Bicarb Tab [Sodium Bicarb 325 MG Tab*] 650 mg PO BID 01/22/24 Hydrocodone 5/APAP 325 [Center 5/325*] 1 tab PO Q6HP PRN #30 tab 01/25/24 Apixaban [Eliquis *] 5 mg PO BID 02/06/24 Cyclobenzaprine [Flexeril*] 5 mg PO BIDP PRN #30 tab 02/13/24 Nifedipine Xl [Procardia Xl*] 30 mg PO BID #60 tab 02/13/24 minoxidiL [Loniten*] 5 mg PO BID #120 tab 02/13/24 Spironolactone [Aldactone*] 25 mg PO DAILY 02/16/24 carvediloL [Coreg*] 25 mg PO BID 02/16/24 Review of Systems General: Fever, Weakness Respiratory: Wheezing <Mely Anaya - Last Filed: 02/16/24 17:53> Physical Examination - Physical Exam General: Alert, In no apparent distress, Oriented x3 HEENT: Other (mid face swelling) Neck: Supple, JVD not distended Respiratory: Normal air movement, Crackles/rales Cardiovascular: Normal pulses, Regular rate/rhythm, Normal S1 S2, Systolic murmur Capillary refill: <2 Seconds Gastrointestinal: Normal bowel sounds, Soft and benign, No tenderness, Distended (obese) Musculoskeletal: No clubbing Integumentary: No rashes Neurological: Normal speech, Normal tone - Studies Laboratory Data (last 24 hrs) 02/16/24 02/16/24 09:40 09:40 WBC 9.20 Hgb 8.5 L Hct 24.2 L Plt Count 227 Sodium 118 L* Potassium 3.7 BUN 45 H Creatinine 2.05 H Glucose 167 H Total Bilirubin 0.5 AST 17 ALT 25 Alkaline Phosphatase 66 <Mely Anaya - Last Filed: 02/16/24 17:53> - Studies Laboratory Data (last 24 hrs) 02/16/24 02/16/24 09:40 09:40 WBC 9.20 Hgb 8.5 L Hct 24.2 L Plt Count 227 Sodium 118 L* Potassium 3.7 BUN 45 H Creatinine 2.05 H Glucose 167 H Total Bilirubin 0.5 AST 17 ALT 25 Alkaline Phosphatase 66 <raymundo rojas - Last Filed: 02/16/24 20:12> Assessment and Plan - Plan Assessment and plan Acute Allergic reaction Swelling to mid face Benadryl and steroids given in the ED lasix, Benadryl, and steroids on the floor Started new medications at discharge yesterday, now with facial swelling Flexeril given at 1140-day of discharge, also took 1 dose at home last night- will hold Hypervolemic hyponatremia in a patient with chronic hyponatremia Fluid volume overload Sodium 118 Repeat BMP BNP 5910 Lasix BID Continue home dose sodium bicarbonate tablet Strict I's and O's Daily weights Acute on chronic renal disease Hypoalbuminemia Albumin 3.0 BUN/creatinine 45/2.05, GFR 24 Avoid nephrotoxins monitor in AM labs Elevated troponin Troponin 898.1, 1157.1, serial pending Consult cardiology Heparin drip started Aspirin 325 x 1 Aspirin daily Diabetes mellitus Hyperglycemia Serum glucose 167 Accucheck with SSI History of Atrial fibrillation Restart home medications when available DVT ppx Eliquis Full code LOS 24 hours Discharge Plan: Home Plan to discharge in: 48 Hours - Advance Directives Does patient have a Living Will: No Does patient have a Durable POA for Healthcare: No <Mely Anaya - Last Filed: 02/16/24 17:53> - Plan Patient seen and examined. She has facial edema and upper extremity edema. Edema likely related to minoxidil. Patient with refractory severe hypertension Minoxidil discontinued and replaced with doxazosin. Continue other antihypertensives. Elevated troponin, she is asymptomatic. Patient started on heparin drip and Eliquis held. Cardiology consult. Obtain echocardiogram. <raymundo rojas - Last Filed: 02/16/24 20:12>
[2024-02-16] MEDS ORDERED: DIPHENHYDRAMINE 50 MG/ML VIAL IV PRN (16:00)
[2024-02-16] MEDS: DIPHENHYDRAMINE 50 MG/ML VIAL IV ONE (16:12)
[2024-02-16] MEDS: METHYLPREDNISOLONE 40 MG INJ IV SCH (16:13)
[2024-02-16] MEDS: FUROSEMIDE 20 MG/ 2ML VIAL IV SCH (16:14)
[2024-02-16] MEDS: HEPARIN 5000 UNIT/ML 1 ML VIAL SQ SCH (16:15)
[2024-02-16] MEDS: INSULIN REGULAR (HUMAN) 100 UNIT/ML SQ SCH (16:30)
[2024-02-16] MEDS ORDERED: HYDROCODONE/APAP 5/325 MG TAB PO PRN (16:48)
[2024-02-16] MEDS ORDERED: MORPHINE 2 MG/ML SYR IV PRN (17:24)
[2024-02-16 17:25] LABS: Magnesium 1.7 mg/dL (1.6-2.4); Phosphorus 4.4 mg/dL (2.5-4.9)
[2024-02-16] MEDS: carvediloL 25 MG TAB PO SCH (18:08)
[2024-02-16] MEDS: HYDRALAZINE HCL 20 MG/ML VIAL IV PRN (18:09)
[2024-02-16] MEDS: ASPIRIN EC 325 MG TABLET PO ONE (18:09)
[2024-02-16] MEDS: GABAPENTIN 300 MG CAP PO SCH (20:43)
[2024-02-16] MEDS: DOXAZOSIN 2 MG TAB PO SCH (20:44)
[2024-02-16] MEDS: NIFEDIPINE XL 30 MG TABLET PO SCH (20:44)
[2024-02-16] MEDS: SODIUM BICARB 325 MG TAB PO SCH (20:44)
[2024-02-16] MEDS: ATORVASTATIN 20 MG TAB PO SCH (20:44)
[2024-02-16] MEDS ORDERED: minoxidiL 2.5 MG TAB PO SCH (21:00)
[2024-02-16] MEDS ORDERED: APIXABAN 5 MG TABLET PO SCH (21:00)
[2024-02-16] MEDS ORDERED: carvediloL 25 MG TAB PO SCH (21:00)
[2024-02-16] MEDS: HEPARIN/D5W 25,000 UNIT/500 ML BAG IV SCH (21:04)
[2024-02-16 21:57] LABS: Anion Gap 14.8 mEq/L (5.0-15.0); Potassium 3.8 mEq/L (3.5-5.1)
[2024-02-16 22:08] LABS: Thyroid Stimulating Hormone 1.31 uIU/mL (0.358-3.740); Uric Acid 9.1 mg/dL (2.6-6.0)
[2024-02-16 22:19] LABS: PT Prothrombin Time 14.7 SECONDS (9.5-12.5); PTT, Activated Partial Thromb 42.5 SECONDS (24.3-36.9); Protime INR 1.35
[2024-02-17 01:29] LABS: Renal Epithelial <5 /HPF (None Seen); Specific Gravity 1.006 (1.005-1.030); Sqamous Epithelial <5 /HPF (None Seen); Urine Bacteria <20 /HPF (<20); Urine Bilirubin NEGATIVE (Negative); Urine Blood Negative (Negative); Urine Clarity Extremely Turbid (Clear); Urine Color Light-Yellow (Yellow); Urine Culture Reflex Order NOT NEEDED; Urine Glucose NEGATIVE (Negative); Urine Ketones NEGATIVE (Negative); Urine Micro Reflex YN NO BILL MICROSCOPIC; Urine Mucus Slight /HPF (None Seen); Urine Nitrite NEGATIVE (Negative); Urine Protein NEGATIVE (Negative); Urine RBC <5 /HPF (None Seen); Urine Urobilinogen Normal (Normal); Urine WBC <5 /HPF (<5); Urine WBC Clump Rare /HPF (None Seen)
[2024-02-17 02:37] LABS: Absolute Lymphocytes (CBC) 0.7 K/uL (0.7-4.9); Absolute Monocytes 0.1 K/uL (0.1-1.3); Absolute Neutrophil 8.4 K/uL (1.8-8.0); Basophils % 0.5 % (0-1.3); Hematocrit 25.2 % (36.0-45.0); Hemoglobin 8.7 g/dL (12.0-15.0); Lymphocytes % 7.3 % (15.3-44.8); MCH 30.5 pg (27.0-35.0); MCHC 34.3 g/dL (32.0-36.0); MCV 88.9 fL (80-100); MPV 8.7 fL (7.6-11.3); Monocytes % 0.7 % (3.3-12.3); Neutrophils % 91.5 % (41.7-73.7); Platelets 233 thou/uL (152-406); RBC Red Blood Cell Count 2.84 M/uL (3.86-4.86); Red Cell Distribution Width 12.6 % (12.1-15.2)
[2024-02-17 02:53] LABS: Anion Gap 13.6 mEq/L (5.0-15.0); Magnesium 1.7 mg/dL (1.6-2.4); Phosphorus 4.4 mg/dL (2.5-4.9); Potassium 3.6 mEq/L (3.5-5.1)
[2024-02-17 04:20] LABS: Band Neutrophils 6 % (0-1); Blood Morphology Comment NOT SEEN (NOT SEEN); Differential Total Cells Count 100; Lymphocytes 9 % (15-42); Monocytes 1 % (0-10); Platelet Estimate ADEQ; Segmented Neutrophils 84 % (40-80)
[2024-02-17] MEDS: ASPIRIN EC 81 MG TAB PO SCH (08:29)
[2024-02-17] MEDS: POTASSIUM CL SA 10 MEQ TAB PO ONE (08:29)
--- NOTE | 2024-02-17 08:51 | RAD REPORT ---
EXAM DESCRIPTION: US - Renal Ultrasound-Complete - 02/16/2024 10:40 pm RadLex: US RETROPERITONEUM CLINICAL HISTORY: 78 years Female; bob; TECHNIQUE: Bilateral renal ultrasound was performed. COMPARISON: None. FINDINGS: Right kidney: Measures 8.5 cm. No hydronephrosis. No stone or mass. Tiny simple cyst measu ring up to 0.8 cm. Left kidney: Measures up to 9.3 cm. No hydronephrosis. No stone, mass, cyst. Bladder: within normal limits. IMPRESSION: 1. No hydronephrosis. 2. Tiny simple right renal cyst measuring up to 0.8 cm. Electronically signed by: Laura Syed MD 02/16/2024 11:19 PM CDT Due to temporary technical issues with the PACS/Fluency reporting system, reports are being signed by the in house radiologists without review as a courtesy to insure prompt reporting. The interpreting radiologist is fully responsible for the content of the report.
[2024-02-17] MEDS ORDERED: MAGNESIUM OXIDE 400 MG TAB PO SCH (09:00)
[2024-02-17] MEDS ORDERED: SPIRONOLACTONE 25 MG TABLET PO SCH (09:00)
[2024-02-17] MEDS: MAGNESIUM OXIDE 400 MG TAB PO SCH (09:00)
[2024-02-17] MEDS: MAGNESIUM SULFATE 1 gm IVPB 1 GM/100 ML BAG IV ONE (09:00)
--- NOTE | 2024-02-17 13:59 | P.PN ---
Date of Service: 02/17/24 Subjective: Facial swelling, upper extremity swelling significantly improved Reports dyspnea on exertion Denies chest pain Reports bright red blood per rectum ROS: 10 point ROS as noted above, otherwise negative Physical exam GEN: Alert, oriented, NAD HEENT: Normal conjunctiva, sclera anicteric CV: Regular rate and rhythm, no edema Pulm: Nonlabored respirations on room air ABD: Soft, nontender, nondistended MSK: No joint tenderness Integumentary: No rashes Neuro: Normal speech, normal affect Vitals reviewed Problem List NSTEMI Hyponatremia Suspected allergic reaction Acute kidney injury Diabetes mellitus type 2 History of atrial fibrillation on chronic anticoagulation Bright red blood per rectum Plan NSTEMI Troponin peaked 1157 On heparin drip Cardiology consulted, likely inpatient stress test versus heart catheterization Continue to monitor on telemetry Echocardiogram ordered Hyponatremia Continue oral sodium Nephrology consulted and following Slowly improving Suspected allergic reaction Was treated for allergic reaction ED with Benadryl/solu Medrol Had significant improvement in her facial swelling Possibly related to minoxidil-will switch to doxazosin Flexeril also discontinued Acute kidney injury Nephrology consulted and following Appreciate further recommendations Diabetes mellitus type 2 ACHS Accu-Chek, sign scale insulin History of atrial fibrillation on chronic anticoagulation Eliquis on hold given NSTEMI Continue heparin drip Await further recommendation from cardiology Bright red blood per rectum Reports she deals with small amounts of bright red blood per rectum at home with hemorrhoids Now on heparin drip with large amounts of bright red blood per rectum with bowel movement Will incorporate stool softener to minimize bleeding Monitor H&H daily transfuse as necessary VTE: Heparin drip for now Code: Full Dispo: 2 to 3 days Time Spent Managing Pts Care (In Minutes): 35
[2024-02-17 14:01] VITALS: BMI 22.9
--- NOTE | 2024-02-17 16:19 | EKG ---
Test Date: 2024-02-16 Test Time: 09:45:30 Box Toe Cementer: Leisa HUNT MEASUREMENT RESULTS: Intervals: Rate: 73 NM: QRSD: 80 QT: 336 QTc: 370 Haswell: P: NM: QRS: 57 T: 117 INTERPRETIVE STATEMENTS: Sinus rhythm Low voltage QRS ST & T wave abnormality, consider lateral ischemia Abnormal ECG Compared to ECG 02/05/2024 19:43:47 Low QRS voltage now present ST (T wave) deviation now present Possible ischemia now present First degree AV block no longer present Electronically Signed On 02-17-24 16:15:40 CDT by Serge Morales
--- NOTE | 2024-02-17 19:48 | CON ---
Date of Consultation: 02/17/2024 Reason For Consultation: Elevated troponin. History Of Present Illness: A 78-year-old female, history of atrial fibrillation, hypertension, diab etes, dyslipidemia, presented to emergency room with facial swelling started around midnight and then she had some audible wheezes in bilateral lungs and found to be fluid overloaded. She apparently wa s given some steroids and Lasix in the emergency room, admitted, and her heart enzymes were slightly elevated, but no chest pain. Past Medical History: As outlined above in HPI. Medications: Refer reconciliation sheet for detailed list. Allergies: NO KNOWN DRUG ALLERGIES. Family History: No premature coronary artery disease or cancer. Social History: Does not smoke or drink. Does not use any drugs. Review of Systems: All systems reviewed and they were negative except as mentioned in HPI. Physical Examination: Vital Signs: Reviewed. Head and Neck: Pupils are equal, reactive to light. Intact eye movements. No JVD. No cervical lym phadenopathy. Neck: Supple. Thyroid is not enlarged. Lungs: Clear to auscultation bilaterally. No rhonchi, rales, or crackles. No accessory muscle use. Heart: Irregular. No extra sounds. Abdomen: Soft, nontender. Bowel sounds positive. No organomegaly. No masses or hernia. No rigidi ty or rebound. Extremities: No edema, clubbing, or cyanosis. Intact pulses. Skin: No rash. Neurologic: Alert, awake, no acute focal deficits appreciated. Investigations: Troponin peaked at 1157, now down to 672. BUN is 50, creatinine is 2.1. Assessment/recommendation: 1.Elevated troponin. No chest pain. Obtain an echo and Lexiscan nuclear stress test to further jeannette luate. This is probably demand ischemia. 2.Atrial fibrillation, rate is controlled. Resume home medication including Eliquis. 3.Acute on chronic renal failure, and creatinine is improving. 4.Allergic reaction with facial swelling, on anti-allergy medications. Continue to monitor. SR/MODL Voice ID: [id number] Report ID: [id number]
[2024-02-17] MEDS: ACETAMINOPHEN 500 MG TAB PO PRN (20:29)
[2024-02-17 21:15] LABS: Anion Gap 14.1 mEq/L (5.0-15.0); Potassium 4.1 mEq/L (3.5-5.1)
[2024-02-17] MEDS: SODIUM CHLORIDE 1 GM TAB PO ONE (22:53)
[2024-02-17] MEDS: NA CHLORIDE 0.9% 1,000 ML IV SCH (23:36)
[2024-02-18 04:58] LABS: Hemoglobin 7.2 g/dL (12.0-15.0); MCH 30.3 pg (27.0-35.0); MCHC 34.1 g/dL (32.0-36.0); MCV 88.7 fL (80-100); MPV 8.8 fL (7.6-11.3); Platelets 232 thou/uL (152-406); RBC Red Blood Cell Count 2.37 M/uL (3.86-4.86); Red Cell Distribution Width 12.9 % (12.1-15.2)
[2024-02-18 05:09] LABS: Albumin 2.9 g/dL (3.4-5.0); Anion Gap 13.1 mEq/L (5.0-15.0); Bilirubin Total 0.3 mg/dL (0.2-1.0); Globulin 2.8 g/dL (2.3-3.5); Potassium 4.1 mEq/L (3.5-5.1); Protein, Total 5.7 g/dL (6.4-8.2)
--- NOTE | 2024-02-18 06:58 | ECHO ---
HEIGHT: 5 ft 4 in WEIGHT: 133 lb 6.4 oz DATE OF STUDY: 02/17/[address]: Amando Dougherty NP 2-DIMENSIONAL: YES M.MODE: YES DOPPLER: YES COLOR FLOW: YES TDS: PORTABLE: YES DEFINITY: BUBBLE STUDY: DIAGNOSIS: NON ST ELEVATION MYOCARDIAL INFARCTION CARDIAC HISTORY: CATHERIZATION: NO SURGERY: NO PROSTHETIC VALVE: NO PACEMAKER: NO MEASUREMENTS (cm) DIASTOLIC (NORMALS) SYSTOLIC (NORMALS) IVSd 1.0 (0.6-1.2) LA Diam 3.9 (1.9-4.0) LVEF 63% LVIDd 4.4 (3.5-5.7) LVIDs 2.9 (2.0-3.5) %FS 34% LVPWd 1.2 (0.6-1.2) Ao Diam 2.7 (2.0-3.7) 2 DIMENSIONAL ASSESSMENT: RIGHT ATRIUM: NORMAL LEFT ATRIUM: NORMAL RIGHT VENTRICLE: NORMAL LEFT VENTRICLE: NORMAL TRICUSPID VALVE: MILD TRICUSPID REGURGITATION MITRAL VALVE: MILD MITRAL REGURGITATION PULMONIC VALVE: NORMAL AORTIC VALVE: MILD AORTIC INSUFFICIENCY PERICARDIAL EFFUSION: NONE AORTIC ROOT: NORMAL LEFT VENTRICULAR WALL MOTION: NORMAL DOPPLER/COLOR FLOW: SEE BELOW COMMENTS: 1. NORMAL LEFT VENTRICULAR EJECTION FRACTION 60-65% 2. NORMAL WALL MOTION 3. MILD MITRAL REGURGITATION, AORTIC INSUFFICIENCY, TRICUSPID REGURGITATION TECHNOLOGIST: LILO MONROY
[2024-02-18] MEDS ORDERED: NA CHLORIDE 0.9% 250 ML IV SCH (07:00)
--- NOTE | 2024-02-18 08:24 | CON ---
Date of Consultation: 02/17/2024 Chief Complaint: JOSE, hyponatremia. History Of Present Illness: The patient is a 78-year-old woman with past medical history significant for atrial fibrillation, hypertension, diabetes mellitus type 2, history of acute kidney injury, was treated with IV fluids for acute kidney injury. She was found to have hyponatremia in 2021. The patient came to the hospital because of facial swelling, which started during this admission. The patient was treated for . Also, she was found to have some volume overload and was started on Lasix. Cardiology consultation is requested for congestive heart failure. The patient developed some facial swelling and received IV Benadryl in the emergency room. She denied tongue swelling. She had some wheezing noted with when she was evaluated in the emergency room. Blood pressure on arrival , heart rate 68, respiratory rate 18, SpO2 100%. Lab work revealed , BUN 45. Chest x- ray did not show any acute cardiopulmonary process. The patient is feeling better today. Review of Systems: Constitutional: Denies fever, chills. Eyes: Denies vision changes. Ears, Nose, Mouth, and Throat: Denies sore throat, earache. Respiratory: Denies PND orthopnea. Cardiovascular: Denies chest pain, palpitations. GI: Denies nausea, vomiting. : Denies dysuria, hematuria. Past Medical History: Hypertension, diabetes mellitus type 2 non-insulin dependent, chronic hearing loss, bowel resection with ileostomy and back reversal, chronic hyponatremia, intermittent fibrillation, hysterectomy, cholecystectomy, bilateral cataract, removal of basal cell carcinoma tumor removed from stomach, ileostomy. Family History: Hypertension, diabetes in her had hypertension, diabetes. Both parents had diabetes and hypertension. Social History: Denies tobacco, alcohol, or any illicit drug. Physical Examination: General: The patient is . Eyes: Anicteric sclerae. EOMI. Neck: Supple. No JVD. No bruits. Respiratory: Normal respiratory effort. No wheezing, no rhonchi. Cardiovascular: S1, S2, 2/6 systolic murmur, left lower sternal border. Abdomen: Soft, benign, nontender. Extremities: Slight edema in both ankles. Laboratory Data: Hemoglobin 8.5, WBC 9.2, platelet count 227. Sodium 118, potassium 3.7, BUN 45, creatinine 2.05, glucose 167, AST 17, ALT 25. Impression And Plan: 1. The patient has fluid overload and she was started on Lasix for cardiorenal syndrome. Chest x-ray did not show cardiopulmonary changes. An ultrasound was ordered to rule out hydronephrosis. The patient is started on Lasix for congestive heart failure. BNP is 5910. The patient has history of hypoalbuminemia and acute on chronic kidney injury. Patient currently is on Lasix for cardiorenal syndrome associated with hyponatremia. Uric acid will be checked to evaluate hyponatremia etiology and plan is to check the urine osmolality. Hyponatremia associated in this particular case with acute kidney injury and contributory factors is congestive heart failure and likely low- sodium, low solute intake. The patient will continue Lasix and spironolactone is currently on hold. Continue to monitor potassium and magnesium level and replace electrolytes as needed. 2. History of atrial fibrillation. Medication will be reviewed by primary team and Cardiology. 3. Diabetes mellitus. Hyperglycemia. Continue insulin in view of acute kidney injury. Patient is not a candidate for metformin. 4. Renal ultrasound will be checked to rule out hydronephrosis, assess the kidney size and echotexture and screen for renal artery stenosis. GUILLERMINA/FAUSTO Voice ID: [id number] Report ID: [id number] BRIAN
[2024-02-18] MEDS ORDERED: REGADENOSON 0.4 MG/5 ML SYR IV ONE (09:28)
--- NOTE | 2024-02-18 10:15 | RAD REPORT ---
EXAM DESCRIPTION: NM - Rest Stress Cardiac Imaging - 02/18/2024 9:59 am CLINICAL HISTORY: elevated troponin Chest pain. COMPARISON: Rest Stress Cardiac Imaging dated 05/03/2016 TECHNIQUE: The patient was administered approximately 10mCi of Tc 99m Sestamibi prior to resting SPE CT imaging of the heart. The patient was then administered approximately 30 mCi of Tc 99m Sestamibi f ollowing exercise or pharmacologic stress. Multiplanar SPECT images were reviewed. FINDINGS: There is a small to moderate sized area of mild stress-induced ischemia involving the LV l ateral wall. No fixed defect is seen to suggest hibernating myocardium or scarred myocardium. The end diastolic volume is 89 ml, the end systolic volume is 23 ml, and the ejection fraction is 75 %. IMPRESSION: Moderate sized area of mild stress-induced ischemia left ventricular lateral wall.
[2024-02-18] MEDS: SODIUM CHLORIDE 1 GM TAB PO SCH (12:07)
[2024-02-18] MEDS: NA CHLORIDE 0.9% 250 ML ONE (12:08)
--- NOTE | 2024-02-18 13:36 | P.PN ---
Date of Service: 02/18/24 Subjective: Facial swelling, upper extremity swelling significantly improved Reports dyspnea on exertion Denies chest pain Stress test today ROS: 10 point ROS as noted above, otherwise negative Physical exam GEN: Alert, oriented, NAD HEENT: Normal conjunctiva, sclera anicteric CV: Regular rate and rhythm, no edema Pulm: Nonlabored respirations on room air ABD: Soft, nontender, nondistended MSK: No joint tenderness Integumentary: No rashes Neuro: Normal speech, normal affect Vitals reviewed Problem List NSTEMI Hyponatremia Suspected allergic reaction Acute kidney injury Diabetes mellitus type 2 History of atrial fibrillation on chronic anticoagulation Acute blood loss anemia/Bright red blood per rectum Plan NSTEMI Troponin peaked 1157 On heparin drip Cardiology consulted Stress test performed 02/17-shows moderate-sized area of mild stress-induced ischemia left ventricular lateral wall NPO after midnight in anticipation of heart catheterization 02/18 Continue to monitor on telemetry Echocardiogram ordered Hyponatremia Continue oral sodium Nephrology consulted and following Slowly improving Suspected allergic reaction Was treated for allergic reaction ED with Benadryl/solu Medrol Had significant improvement in her facial swelling Possibly related to minoxidil-will switch to doxazosin Flexeril also discontinued Acute kidney injury Nephrology consulted and following Appreciate further recommendations Diabetes mellitus type 2 ACHS Accu-Chek, sign scale insulin History of atrial fibrillation on chronic anticoagulation Eliquis on hold given NSTEMI Continue heparin drip until cath Likely restart eliquis after cath Acute blood loss anemia/Bright red blood per rectum Reports she deals with small amounts of bright red blood per rectum at home with hemorrhoids Now on heparin drip with large amounts of bright red blood per rectum with bowel movement Will incorporate stool softener to minimize bleeding 1 unit PRBC today Repeat H/H daily VTE: Heparin drip for now Code: Full Dispo: 2 to 3 days Time Spent Managing Pts Care (In Minutes): 35
--- NOTE | 2024-02-18 14:19 | TREADPHA ---
DX: ELEVATED TROPONIN Date of Study: 02/18/24 Ht: 5' 4 " Wt: 133 lb 6.4 oz Consulting Physician: LILIANA MEDICATIONS: TYLENOL, NORCO, ASPIRIN, LIPITOR, COREG, CARDURA, NEURONTIN, HEPARIN, APRESOLINE, NOVOLIN-R, SOLU-MEDROL, MORPHINE, PROCARDIA, SODIUM BICARB. HISTORY: 78 YEAR OLD FEMALE PHYSICIAL EXAMINATION: RESTING B.P.: 185/68 RESTING H.R.: 71 RESTING EKG: NORMAL SINUS RHYTHM PROTOCOL: LEXISCAN EXERCISE TIME: 3:30 B.P. AT PEAK STRESS: 151/51 IMPRESSION: LEXISCAN INJECTED. CARDIOLITE INJECTED. SEE NUCLEAR MEDICINE REPORT. NO CHEST PAIN. NO VENTRICULAR TACHYCARDIA, NO SUPRA VENTRICULAR TACHYCARDIA, NO ARRHYTMIAS, OCCASIONAL PREMATURE ATRIAL COMPLEXES NOTED. NO EKG CHANGES OF ISCHEMIA WITH LEXISCAN.
[2024-02-18] MEDS: DOCUSATE NA 100 MG CAP PO ONE (15:38)
[2024-02-18 17:54] LABS: Hematocrit 26.9 % (36.0-45.0); Hemoglobin 9.2 g/dL (12.0-15.0)
[2024-02-18 19:52] LABS: Anion Gap 13.2 mEq/L (5.0-15.0); Potassium 4.2 mEq/L (3.5-5.1)
[2024-02-18] MEDS: UREA 15 GM POWDER PACKET PO SCH (21:00)
--- NOTE | 2024-02-18 21:21 | PN ---
Date of Progress Note: 02/18/2024 Subjective: Seen by bedside, doing clinically well. No chest pain. Review of Systems: No chest pain, shortness of breath, orthopnea, cough, nausea, vomiting, diarrhea. All other systems reviewed, they are negative. Physical Examination: Vital Signs: Reviewed. Head and Neck: Pupils are equal, reactive to light. Intact eye movements. No JVD. No cervical lym phadenopathy. Neck is supple. Thyroid is not enlarged. Lungs: Clear to auscultation bilaterally. No rhonchi, wheezing, or crackles. No accessory muscle u se. Heart: Regular rate and rhythm. No extra sounds. Abdomen: Soft, nontender. Bowel sounds positive. No organomegaly. No masses or hernia. No rigidi ty or rebound. Extremities: No clubbing or cyanosis. Intact pulses. Skin: No rash or nodule. Neurologic: Alert, awake, oriented x3. No acute focal deficits appreciated. Lymph Nodes: No cervical or axillary lymphadenopathy. Investigations: BUN is 58, creatinine is 2.07, and hemoglobin is 7.2. Her stress test showed modera te-sized reversible ischemia of the lateral wall. Assessment And Plan: 1.Elevated troponin with abnormal stress test, but she does not have chest pain. At this moment, palomo jennings needs coronary angiogram. However, she does have multiple other issues including hyponatremia and acute renal failure as well as severe anemia. I would like this although seizures corrected first an d then we will plan coronary angiogram at a later time. Continue baby aspirin for now and statin. 2.Dyslipidemia. Continue statin and 40 mg of Lipitor. 3.Atrial fibrillation, rate controlled. Continue home medications. SR/MODL Voice ID: [id number] Report ID: [id number]
[2024-02-18] MEDS: ACETYLCYST 20% 800 MG/4 ML VIAL PO SCH (21:26)
[2024-02-19 05:14] LABS: Hematocrit 26.8 % (36.0-45.0); Hemoglobin 8.9 g/dL (12.0-15.0); MCH 29.8 pg (27.0-35.0); MCHC 33.3 g/dL (32.0-36.0); MCV 89.5 fL (80-100); MPV 8.8 fL (7.6-11.3); Platelets 277 thou/uL (152-406); Red Cell Distribution Width 13.4 % (12.1-15.2)
[2024-02-19 05:26] LABS: Albumin 2.9 g/dL (3.4-5.0); Anion Gap 12.3 mEq/L (5.0-15.0); Bilirubin Total 0.3 mg/dL (0.2-1.0); Potassium 4.3 mEq/L (3.5-5.1); Protein, Total 5.9 g/dL (6.4-8.2)
--- NOTE | 2024-02-19 08:22 | PN ---
Date of Progress Note: 02/18/2024 Chief Complaint: Acute on chronic kidney disease, chronic hyponatremia, underwent cardiac workup and she is cardiac catheterization tomorrow. edema and facial edema. Currently, she is on IV fluids with normal saline serum sodium level has improved within n ormal limits. Cortisol level was also within normal limits. Review of Systems: Constitutional: The patient denies fever, chills. Eyes: Denies vision changes. Ears, Nose, Mouth, and Throat: Denies sore throat, earache. Respiratory: Denies PND, orthopnea, and wheezing. Impression And Plan: 1.Acute on chronic kidney . 2.History of atrial fibrillation . 3.The patient received 1 unit of packed red blood cells. Monitor hemoglobin level. I discussed ___ . GUILLERMINA/FAUSTO Voice ID: [id number] Report ID: [id number]
--- NOTE | 2024-02-19 10:46 | P.PN ---
Date of Service: 02/19/24 Subjective: Doing well Still with bright red blood per rectum after starting heparin ROS: 10 point ROS as noted above, otherwise negative Physical exam GEN: Alert, oriented, NAD HEENT: Normal conjunctiva, sclera anicteric CV: Regular rate and rhythm, no edema Pulm: Nonlabored respirations on room air ABD: Soft, nontender, nondistended MSK: No joint tenderness Integumentary: No rashes Neuro: Normal speech, normal affect Vitals reviewed Problem List NSTEMI Hyponatremia Suspected allergic reaction Acute kidney injury Diabetes mellitus type 2 History of atrial fibrillation on chronic anticoagulation Acute blood loss anemia/Bright red blood per rectum Plan NSTEMI Troponin peaked 1157 On heparin drip Cardiology consulted Stress test performed 02/17-shows moderate-sized area of mild stress-induced ischemia left ventricular lateral wall Cath delayed for further optimization possible cath 02/19 Continue to monitor on telemetry Echocardiogram ordered Hyponatremia Continue IVF/oral supplementation Nephrology consulted and following Slowly improving NA 125 today Suspected allergic reaction Was treated for allergic reaction ED with Benadryl/solu Medrol Had significant improvement in her facial swelling Possibly related to minoxidil-will switch to doxazosin Flexeril also discontinued Acute kidney injury Nephrology consulted and following Appreciate further recommendations Diabetes mellitus type 2 ACHS Accu-Chek, sign scale insulin History of atrial fibrillation on chronic anticoagulation Eliquis on hold given NSTEMI Continue heparin drip until cath Likely restart eliquis after cath Acute blood loss anemia/Bright red blood per rectum Reports she deals with small amounts of bright red blood per rectum at home with hemorrhoids Now on heparin drip with large amounts of bright red blood per rectum with bowel movement Will incorporate stool softener to minimize bleeding H/H stable, still with BRBPR Recheck H/H at 1600 today VTE: Heparin drip for now Code: Full Dispo: 2 to 3 days Time Spent Managing Pts Care (In Minutes): 35
[2024-02-19] MEDS: HYDRALAZINE HCL 25 MG TABLET PO SCH (14:27)
--- NOTE | 2024-02-19 16:02 | PN ---
Date of Progress Note: 02/19/2024 Subjective: The patient was admitted to the hospital with [id number] MT, congestive heart fail ure with exacerbation. The patient had hyponatremia. Objective: Vital Signs: Currently, on physical exam, her blood pressure 171/73, pulse of 62, afebri le. General: Patient had good urine output, voiding. Patient on room air. Chest: Faint rales, bilateral. Heart: S1, S2. Systolic murmur. Abdomen: Soft, nontender. Extremity: Trace edema. Neurologic: Alert. No focality. Laboratory Data: Small size kidney 8.5/9.3 with renal cyst, small. Hemoglobin 8.9, sodium 125, pota ssium 4.3, bicarb 25, BUN 22, creatinine 2.1, calcium 7.6, albumin 2.9, corrected calcium is 8.4, TSH 1.3, cortisol is 11. Urinalysis, urine osmolality of 219, urine sodium 45. Current Medications: The patient on, includes: 1.Aspirin. 2.Heparin. 3.Atorvastatin 20 mg. 4.Carvedilol 25. 5.Cardura 1 mg b.i.d. 6.IV fluid. 7.Nifedipine 30 b.i.d. 8.Gabapentin. 9.Sodium bicarb 650 t.i.d. Assessment And Plan: 1.Acute kidney injury, secondary to cardiorenal, poor perfusion, acute tubular necrosis. The patien t was started on IV hydration. Kidney function continued to improve. I am going to continue on IV h ydration for the patient. Patient on room air. We will continue to monitor the patient. Continue s odium bicarb. The patient to plan for cardiac cath tomorrow. We will continue hydrating the patient and we will follow up. 2.Hypertension, poorly controlled. I am going to increase Cardura. We will add hydralazine for the patient regimen and we will follow up with Cardiology. 3.Hyponatremia, depletional. Sodium continued to trend up. I am going to continue IV fluid. Corre cted sodium is better. I am going to go ahead and increase sodium bicarb. 4.Uka-RP-iogujujzh myocardial infarction, as by Cardiology. Plan for cardiac catheterization. The patient was started on bicarb oral and IV hydration. We will follow up the patient. Discussed with the patient and the risks, benefits, alternatives including possible acute kidney injury, wor sening kidney function, may require renal replacement therapy. Patient and the on agreement. We will follow up. ROGELIO Voice ID: [id number] Report ID: [id number]
[2024-02-19] MEDS: DOXAZOSIN 2 MG TAB PO SCH (22:42)
--- NOTE | 2024-02-19 23:48 | PN ---
Date of Progress Note: 02/19/2024 Subjective: Seen by bedside. No chest pain. Review of Systems: No chest pain, shortness of breath, orthopnea, cough, nausea, vomiting, diarrhea. All other systems reviewed, they are negative. Physical Examination: Vital Signs: Reviewed. Head and Neck: Pupils are equal, reactive to light. Intact eye movements. No JVD. No cervical lym phadenopathy. Neck is supple. Thyroid is not enlarged. Lungs: Clear to auscultation bilaterally. No rhonchi, wheezing, or crackles. No accessory muscle u se. Heart: Regular rate and rhythm. No extra sounds. Abdomen: Soft, nontender. Bowel sounds positive. No organomegaly. No masses or hernia. No rigidi ty or rebound. Extremities: No clubbing, cyanosis. Intact pulses. Skin: No rash. Neurologic: Alert, awake, oriented x3. No acute focal deficits appreciated. Investigations: BUN 72, creatinine is 2.1, and hemoglobin is 8.9. Assessment/recommendation: 1.Elevated troponin with positive stress test. She will need coronary angiogram; however, her kidne y function is getting worse. At this point, I will hold off on coronary angiogram as she is not havi ng any active chest pain until her clinical condition becomes stable. 2.Acute renal failure. Recommend Nephrology evaluation. 3.Dyslipidemia, on statin. 4.Atrial fibrillation, controlled. We will continue to monitor her. The coronary angiogram will be put on hold until she is in a better clinical condition, especially th e workup for the anemia as well. SR/MODL Voice ID: [id number] Report ID: [id number]
[2024-02-20 04:04] LABS: Hemoglobin 8.1 g/dL (12.0-15.0); MCH 30.3 pg (27.0-35.0); MCHC 33.9 g/dL (32.0-36.0); MCV 89.5 fL (80-100); MPV 7.9 fL (7.6-11.3); Platelets 270 thou/uL (152-406); RBC Red Blood Cell Count 2.68 M/uL (3.86-4.86); Red Cell Distribution Width 13.6 % (12.1-15.2)
[2024-02-20 04:22] LABS: Albumin 2.5 g/dL (3.4-5.0); Anion Gap 8.1 mEq/L (5.0-15.0); Bilirubin Total 0.4 mg/dL (0.2-1.0); Globulin 2.5 g/dL (2.3-3.5); Potassium 4.1 mEq/L (3.5-5.1)
[2024-02-20] MEDS: carvediloL 25 MG TAB PO SCH (06:00)
--- NOTE | 2024-02-20 13:29 | P.PN ---
Date of Service: 02/20/24 Subjective: Denies chest pain Still having some bright red blood per rectum with bowel movements ROS: 10 point ROS as noted above, otherwise negative Physical exam GEN: Alert, oriented, NAD HEENT: Normal conjunctiva, sclera anicteric CV: Regular rate and rhythm, no edema Pulm: Nonlabored respirations on room air ABD: Soft, nontender, nondistended MSK: No joint tenderness Integumentary: No rashes Neuro: Normal speech, normal affect Vitals reviewed Problem List NSTEMI Hyponatremia Suspected allergic reaction Acute kidney injury Diabetes mellitus type 2 History of atrial fibrillation on chronic anticoagulation Acute blood loss anemia/Bright red blood per rectum Plan NSTEMI Troponin peaked 1157 Heparin drip discontinued 02/19 AM Cardiology consulted Stress test performed 02/17-shows moderate-sized area of mild stress-induced ischemia left ventricular lateral wall Cath delayed for further optimization Continue to monitor on telemetry Echocardiogram ordered Hyponatremia Continue IVF/oral supplementation Nephrology consulted and following Slowly improving NA 133 Suspected allergic reaction Was treated for allergic reaction ED with Benadryl/solu Medrol Had significant improvement in her facial swelling Possibly related to minoxidil-will switch to doxazosin Flexeril also discontinued Acute kidney injury Nephrology consulted and following Appreciate further recommendations Diabetes mellitus type 2 ACHS Accu-Chek, sign scale insulin History of atrial fibrillation on chronic anticoagulation Hold heparin drip/Eliquis given prior blood per rectum Acute blood loss anemia/Bright red blood per rectum Reports she deals with small amounts of bright red blood per rectum at home with hemorrhoids Heparin discontinued Will incorporate stool softener to minimize bleeding H/H stable, still with BRBPR Recheck H/H at 1600 today VTE: SCD Code: Full Dispo: 2 to 3 days Time Spent Managing Pts Care (In Minutes): 35
--- NOTE | 2024-02-20 20:01 | PN ---
Date of Progress Note: 02/20/2024 Subjective: Seen by bedside. Doing well. No chest pain. Review of Systems: No chest pain, shortness of breath, orthopnea, cough, nausea, vomiting, diarrhea. All other systems reviewed, they are negative. Physical Examination: Vital Signs: Reviewed. Head and Neck: Pupils are equal, reactive to light. Intact eye movements. No JVD. No cervical lym phadenopathy. Neck is supple. Thyroid is not enlarged. Lungs: Clear to auscultation bilaterally. No rhonchi, wheezing, or crackles. No accessory muscle u se. Heart: Irregular. No extra sounds. Abdomen: Soft, nontender. Bowel sounds positive. No organomegaly. No masses or hernia. No rigidi ty or rebound. Extremities: No clubbing, cyanosis. Intact pulses. Skin: No rash or nodule. Neurologic: Alert, awake, oriented x3. No acute focal deficits appreciated. Investigations: BUN 88, creatinine 1.66, and hemoglobin is 8.7. Assessment/recommendation: 1.Elevated troponin with positive stress test. She will need coronary angiogram. This will be put on hold until the GI bleed issue is controlled and also we will wait until kidney function stabilizes further. Creatinine is better, but her BUN is still very high, which raises a concern about upper G I bleed as well. 2.Acute renal failure, improving. Continue to monitor. Maybe we will plan for coronary angiogram n ext week. 3.Dyslipidemia, on statin. 4.Atrial fibrillation, controlled. Continue current therapy. SR/MODL Voice ID: [id number] Report ID: [id number]
--- NOTE | 2024-02-21 03:38 | PN ---
Date of Progress Note: 02/20/2024 Subjective: The patient is admitted to the hospital because of [id number] myocardial infarctio n, congestive heart failure with exacerbation. The patient was found to have severe hyponatremia. T he patient has history of hyponatremia. She presented to the hospital because of shortness of breath and facial swelling and was found to have acute coronary syndrome. Serum creatinine was elevated an d there is high BUN/creatinine ratio. Hyponatremia was treated with p.o. fluid restriction primarily . Patient received IV Lasix for cardiorenal syndrome. Subsequently, she was started on IV fluids be cause of cardiac catheterization. Currently, cardiac catheterization is on hold. The patient receiv ed blood transfusion. Patient was found to have lower GI bleeding. Hyponatremia was depletional. S odium was improving in response to sodium chloride tablets as well as urea. Review of Systems: Denies PND, orthopnea. She is feeling better today. Objective: Lungs: Clear to auscultation bilaterally. Heart: S1, S2. Abdomen: Soft. Extremities: Slight edema in both ankles. Impression And Plan: 1.Acute kidney injury secondary to cardiorenal syndrome, acute tubular necrosis. The patient was st arted on mild hydration prior to cardiac catheterization. The patient will continue p.o. fluid restr iction. Sodium chloride tablets were stopped and urea is stopped. 2.Hypertension, poorly controlled. The patient is taking hydralazine and Cardura. 3. depletional. Continue to monitor electrolytes. Avoid HCTZ. Avoid nonsteroidal anti-i nflammatory medication. EB/MODL Voice ID: [id number] Report ID: [id number]
[2024-02-21 07:43] LABS: Hemoglobin 7.5 g/dL (12.0-15.0); MCH 30.6 pg (27.0-35.0); MCV 89.7 fL (80-100); MPV 7.4 fL (7.6-11.3); Platelets 240 thou/uL (152-406); RBC Red Blood Cell Count 2.46 M/uL (3.86-4.86); Red Cell Distribution Width 13.6 % (12.1-15.2)
[2024-02-21 08:03] LABS: Albumin 2.5 g/dL (3.4-5.0); Anion Gap 8.8 mEq/L (5.0-15.0); Bilirubin Total 0.3 mg/dL (0.2-1.0); Globulin 2.5 g/dL (2.3-3.5); Potassium 3.8 mEq/L (3.5-5.1)
[2024-02-21] MEDS: POTASSIUM CL SA 10 MEQ TAB PO ONE (09:02)
--- NOTE | 2024-02-21 15:47 | P.PN ---
Date of Service: 02/21/24 Subjective: Bleeding hemorrhoids no longer bleeding after heparin discontinued denies chest pain, shortness of breath No other acute events overnight ROS: 10 point ROS as noted above, otherwise negative Physical exam GEN: Alert, oriented, NAD HEENT: Normal conjunctiva, sclera anicteric CV: Regular rate and rhythm, no edema Pulm: Nonlabored respirations on room air ABD: Soft, nontender, nondistended MSK: No joint tenderness Integumentary: No rashes Neuro: Normal speech, normal affect Vitals reviewed Problem List NSTEMI Hyponatremia Suspected allergic reaction Acute kidney injury Diabetes mellitus type 2 History of atrial fibrillation on chronic anticoagulation Acute blood loss anemia/Bright red blood per rectum Plan NSTEMI Troponin peaked 1157 Heparin drip discontinued 02/19 AM Cardiology consulted Stress test performed 02/17-shows moderate-sized area of mild stress-induced ischemia left ventricular lateral wall Cath delayed for further optimization-possible cath 02/22 Continue to monitor on telemetry Echocardiogram ordered Hyponatremia IV fluids discontinued/oral sodium discontinued by nephrology 02/19 Nephrology consulted and following Sodium improved Suspected allergic reaction Was treated for allergic reaction ED with Benadryl/solu Medrol Had significant improvement in her facial swelling Possibly related to minoxidil-will switch to doxazosin Flexeril also discontinued Acute kidney injury Nephrology consulted and following Appreciate further recommendations Diabetes mellitus type 2 ACHS Accu-Chek, sign scale insulin History of atrial fibrillation on chronic anticoagulation Hold heparin drip/Eliquis given prior blood per rectum Acute blood loss anemia/Bright red blood per rectum Reports she deals with small amounts of bright red blood per rectum at home with hemorrhoids Heparin discontinued Bleeding is stopped at this time VTE: SCD Code: Full Dispo: 2 to 3 days Time Spent Managing Pts Care (In Minutes): 35
--- NOTE | 2024-02-21 22:19 | P.PN ---
Subjective Date of Service: 02/21/24 Chief Complaint: allergic reaction, fluid volume overload Physical Examination - Vital Signs Temperature: 98.1 F Blood Pressure: 188/81 Pulse: 82 Respirations: 17 Pulse Ox (%): 98 Assessment And Plan - Plan 1. Acute kidney injury secondary to cardiorenal syndrome, acute tubular necrosis. The patient was started on mild hydration prior to cardiac catheterization. The patient will continue p.o. fluid restriction. Sodium chloride tablets were stopped and urea is stopped. 2. CKD stage III, Baseline GFR 44 mL/min as of March 2022. Monitor renal panel. 3. Hypertension. BP meds adjusted. 4. Hyponatremia. Avoid HCTZ. Avoid nonsteroidal anti-inflammatory medication. Encourage by mouth solid food intake tid, at least half a plate per meal. 5. NSTEMI. Stress test performed 02/18/2024 showed moderate-sized area of mild stress-induced ischemia left ventricular lateral wall. [facility] planned for 02/22. 6. Hx of chronic afib AC on hold 12/12 rectal bleed
[2024-02-22 05:36] LABS: Hematocrit 22.3 % (36.0-45.0); Hemoglobin 7.3 g/dL (12.0-15.0); MCH 29.7 pg (27.0-35.0); MCHC 32.7 g/dL (32.0-36.0); MCV 90.9 fL (80-100); MPV 7.6 fL (7.6-11.3); Platelets 235 thou/uL (152-406); RBC Red Blood Cell Count 2.45 M/uL (3.86-4.86); Red Cell Distribution Width 13.9 % (12.1-15.2)
[2024-02-22 05:51] LABS: Anion Gap 6.7 mEq/L (5.0-15.0); Potassium 3.7 mEq/L (3.5-5.1)
[2024-02-22] MEDS ORDERED: NA CHLORIDE 0.9% 250 ML IV SCH ×2 (07:00)
[2024-02-22] MEDS: POTASSIUM CL SA 10 MEQ TAB PO ONE (08:51)
--- NOTE | 2024-02-22 11:59 | P.PN ---
Date of Service: 02/22/24 Subjective: Bleeding hemorrhoids no longer bleeding after heparin discontinued denies chest pain, shortness of breath No other acute events overnight ROS: 10 point ROS as noted above, otherwise negative Physical exam GEN: Alert, oriented, NAD HEENT: Normal conjunctiva, sclera anicteric CV: Regular rate and rhythm, no edema Pulm: Nonlabored respirations on room air ABD: Soft, nontender, nondistended MSK: No joint tenderness Integumentary: No rashes Neuro: Normal speech, normal affect Vitals reviewed Problem List NSTEMI Hyponatremia Suspected allergic reaction Acute kidney injury Diabetes mellitus type 2 History of atrial fibrillation on chronic anticoagulation Acute blood loss anemia/Bright red blood per rectum Plan NSTEMI Troponin peaked 1157 Heparin drip discontinued 02/19 AM Cardiology consulted Stress test performed 02/17-shows moderate-sized area of mild stress-induced ischemia left ventricular lateral wall Cath delayed for further optimization-possible cath 02/22 Continue to monitor on telemetry Echocardiogram ordered Discuss possible heart cath for 02/22 with cardiology Hyponatremia IV fluids discontinued/oral sodium discontinued by nephrology 02/19 Nephrology consulted and following Sodium improved Suspected allergic reaction Was treated for allergic reaction ED with Benadryl/solu Medrol Had significant improvement in her facial swelling Possibly related to minoxidil-will switch to doxazosin Flexeril also discontinued Acute kidney injury Nephrology consulted and following Appreciate further recommendations Diabetes mellitus type 2 ACHS Accu-Chek, sign scale insulin History of atrial fibrillation on chronic anticoagulation Hold heparin drip/Eliquis given prior blood per rectum Acute blood loss anemia/Bright red blood per rectum Reports she deals with small amounts of bright red blood per rectum at home with hemorrhoids Heparin discontinued Bleeding significant improved Had 1 bright red blood per rectum overnight Transfuse 1 unit PRBC today, has had total of 2 units now VTE: SCD Code: Full Dispo: 1 to 2 days Time Spent Managing Pts Care (In Minutes): 35
--- NOTE | 2024-02-22 12:37 | P.PN ---
Subjective Date of Service: 02/22/24 Chief Complaint: allergic reaction, fluid volume overload Subjective: No new changes, Other (No urinary complaints.) Physical Examination - Vital Signs Temperature: 97.7 F Blood Pressure: 179/58 Pulse: 66 Respirations: 16 Pulse Ox (%): 99 - Physical Exam General: In no apparent distress HEENT: Atraumatic, Normocephalic Neck: Supple, JVD not distended Respiratory: Other (symmetric to expansion) Cardiovascular: No rubs, No murmurs Gastrointestinal: Soft and benign, No rebound Musculoskeletal: No clubbing Integumentary: No warmth Neurological: Normal tone Urinary: Other (no bladder distention) External genitalia: Deferred Rectal: Deferred Assessment And Plan - Plan 1. Acute kidney injury secondary to cardiorenal syndrome, acute tubular necrosis. SCr improved to 1.3. The patient was started on mild hydration prior to cardiac catheterization. The patient will continue p.o. fluid restriction. Sodium chloride tablets were stopped and urea is stopped. [place] po fluid intake. 2. CKD stage III, Baseline GFR 44 mL/min as of March 2022. Monitor renal panel. 3. Hypertension. BP meds adjusted. 4. Hyponatremia. Avoid HCTZ. Avoid nonsteroidal anti-inflammatory medication. Encourage by mouth solid food intake tid, at least half a plate per meal. 5. NSTEMI. Stress test performed 02/18/2024 showed moderate-sized area of mild stress-induced ischemia left ventricular lateral wall. [facility] planned for 02/22. 6. Hx of chronic afib AC on hold 2/2 rectal bleed.
[2024-02-22] MEDS: DIPHENHYDRAMINE 50 MG/ML VIAL IV PRN (17:02)
[2024-02-22] MEDS: FAMOTIDINE 20 MG/2 ML VIAL IV ONE (17:02)
[2024-02-22 18:14] LABS: Hematocrit 31.7 % (36.0-45.0); Hemoglobin 10.7 g/dL (12.0-15.0)
--- NOTE | 2024-02-22 18:49 | PN ---
Date of Progress Note: 02/22/2024 Subjective: Seen by bedside. No chest pain or shortness of breath, but she had an episode of massiv e lower GI bleed, bright red blood per rectum, and she dropped her hemoglobin and requiring blood tra nsfusion. Review of Systems: No chest pain, shortness of breath, orthopnea, or cough. No nausea, vomiting, or diarrhea. All othe r systems were reviewed, they were negative. Objective: Vital Signs: Reviewed. Head and Neck: Pupils are equal, reactive to light. Intact eye movements. No JVD. No cervical lym phadenopathy. Neck is supple. Thyroid is not enlarged. Lungs: Clear to auscultation bilaterally. No rhonchi, wheezing, or crackles. No accessory muscle u se. Heart: Irregular. No extra sounds. Abdomen: Soft, nontender. Bowel sounds positive. No organomegaly. No masses or hernia. No rigidi ty or rebound. Extremities: No clubbing, cyanosis. Intact pulses. Skin: No rash or nodule. Neurologic: Alert, awake, oriented x3. No acute focal deficits appreciated. Investigations: BUN 33, creatinine 1.34, and hemoglobin is 7.3. Assessment And Recommendations: 1.Elevated troponin with positive stress test. She needs coronary angiogram. However, she is still having GI bleed that is active, requiring transfusion. We will hold off on coronary angiogram until a complete GI workup is done including colonoscopy and endoscopy and if the problem is hemorrhoids, this should be easily fixed. I would recommend also to consult General Surgery. 2.Anemia due to acute blood loss. GI tract is the source. Recommend evaluation as outlined above. 3.Atrial fibrillation, stable. 4.Dyslipidemia. Continue statin. SR/MODL Voice ID: [id number] Report ID: [id number]
[2024-02-23 06:42] LABS: RBC Red Blood Cell Count 3.34 M/uL (3.86-4.86)
[2024-02-23 06:43] LABS: Hematocrit 30.2 % (36.0-45.0); Hemoglobin 10.3 g/dL (12.0-15.0); MCH 30.9 pg (27.0-35.0); MCHC 34.1 g/dL (32.0-36.0); MCV 90.5 fL (80-100); MPV 7.1 fL (7.6-11.3); Platelets 261 thou/uL (152-406); Red Cell Distribution Width 14.1 % (12.1-15.2)
[2024-02-23 06:53] LABS: Anion Gap 7.1 mEq/L (5.0-15.0); Potassium 4.1 mEq/L (3.5-5.1)
[2024-02-23] MEDS: NA CHLORIDE 0.9% 1,000 ML ONE (09:37)
[2024-02-23] MEDS ORDERED: LIDOCAINE 1% MPF 5 ML VIAL ONE (10:08)
[2024-02-23] MEDS ORDERED: FENTANYL CITR 100 MCG/2 ML ONE (10:09)
[2024-02-23] MEDS ORDERED: propofoL 200 MG/20 ML VIAL IV ONE (10:09)
[2024-02-23] MEDS: CEFOXITIN SODIUM 1 GM/VIAL ONE (10:21)
--- NOTE | 2024-02-23 10:21 | P.CNS ---
Date of Consult: 02/23/24 Reason for consult: Bleeding hemorrhoids History of present illness: Patient is a 73-year-old female who was admitted with fluid overload and elevated troponin. Patient underwent a stress test which was positive. Patient was placed on heparin drip and started to have issues with her hemorrhoids bleeding. She has required several units of blood following this. Heparin has been stopped. Patient needs a cath but cardiology wants him to hemorrhoid issue to be addressed prior to doing a cath. Therefore we were consulted for evaluation and treatment. Patient is awake and alert and states that has had no bleeding since the heparin was stopped. She has had chronic issues with prolapsed hemorrhoids in the past. Patient denies any sore throat runny nose cough headaches or dizziness. Patient denies any fever or chills. Review of systems: Otherwise unremarkable Past medical history: Hypertension, type 2 diabetes, history of perforated diverticulitis, chronic A-fib and hyponatremia Past surgical history: Thomas's procedure and with reversal for perforated diverticulitis, cholecystectomy, hysterectomy and cataract surgery Allergies: None Social history: Patient does not smoke or drink alcohol Family history: Diabetes and hypertension Vital signs: Stable, afebrile Physical exam: Awake, alert oriented x 3 Head and neck exam: No neck masses, no JVD, throat clear and neck supple Chest: Clear Heart: S1-S2 Abdomen: Soft Extremity: Neurovascular intact Neuro: Nonfocal Rectal: Multiple prolapsed hemorrhoid with stigmata of recent bleeding Diagnostic data: Hemoglobin was 7.3 but the patient was transfused and currently is 10.7. PTT is 96 with heparin has been stopped Assessment: Bleeding hemorrhoids in a patient that needs catheterization and probably would be on long-term anticoagulation. Plan/recommendation: Exam under anesthesia, proctoscopy and hemorrhoidectomy. Patient and family understand risk, benefits and alternatives and agreed to procedure. CC:
[2024-02-23] MEDS ORDERED: dexAMETHasone 4 MG/ML VIAL ONE (10:32)
[2024-02-23] MEDS ORDERED: ONDANSETRON 4 MG/2 ML VIAL ONE (10:32)
[2024-02-23] MEDS: BUPIVACAINE 0.5% PF 10 ML VIAL ONE (10:45)
[2024-02-23 10:54] LABS: Magnesium 1.9 mg/dL (1.6-2.4); Phosphorus 2.1 mg/dL (2.5-4.9)
--- NOTE | 2024-02-23 11:14 | P.OP ---
Date of Service: 02/23/24 Preop diagnosis: Bleeding hemorrhoids Postop diagnosis: Same with thrombosis Procedure performed: Examiner anesthesia, proctoscopy and complex hemorrhoidectomy x 2 Surgeon: Efraín Castro MD Marketing Team Lead: None Estimated blood loss: Minimal Specimen: Hemorrhoids x 2 Findings: As above Anesthesia: General Complications: None Drains: None Fluids and blood products: Nonapplicable Disposition: Recovery room Operative note: Patient brought to the OR and placed in supine position. General anesthesia began. Patient placed in lithotomy position. Patient prepped and draped in the usual sterile fashion. Exam under anesthesia revealed 2 large complex hemorrhoid in the anterior midline in the right posterior region. These hemorrhoids were associated with stigmata of recent bleeding especially the one on the anterior midline complex and thrombosis. Proctoscopy did not reveal any other evidence of disease. Marcaine 0.5% infiltrated locally for postop pain control. Harmonic scalpel used to excise both hemorrhoid complexes. Oozing was noted from the anterior midline hemorrhoid complex. 4-0 chromic was used to control this. Rectal pack consisting of Gelfoam Surgicel and Vaseline gauze placed. Sterile dressing applied. Patient awakened and taken to recovery room in good general condition. CC:
[2024-02-23] MEDS ORDERED: HYDROMORPHONE HCL 1 MG/ML INJ IV PRN (11:22)
[2024-02-23] MEDS ORDERED: HYDROCODONE/APAP 7.5/325 MG TAB PO PRN (11:22)
[2024-02-23] MEDS: HYDROCORTISONE 2.5% RECT CR PR SCH (11:44)
[2024-02-23] MEDS: POTASSIUM PHOS IN 0.9 % NACL 15 MMOL/250 ML BAG IV ONE (11:56)
--- NOTE | 2024-02-23 13:58 | P.PN ---
Date of Service: 02/23/24 Subjective: No complaints this morning to go for hemorrhoidectomy today ROS: 10 point ROS as noted above, otherwise negative Physical exam GEN: Alert, oriented, NAD HEENT: Normal conjunctiva, sclera anicteric CV: Regular rate and rhythm, no edema Pulm: Nonlabored respirations on room air ABD: Soft, nontender, nondistended MSK: No joint tenderness Integumentary: No rashes Neuro: Normal speech, normal affect Vitals reviewed Problem List NSTEMI Hyponatremia Suspected allergic reaction Acute kidney injury Diabetes mellitus type 2 History of atrial fibrillation on chronic anticoagulation Acute blood loss anemia/Bright red blood per rectum S/P hemorrhoidectomy 02/22 Plan NSTEMI Troponin peaked 1157 Heparin drip discontinued 02/19 AM Stress test performed 02/17-shows moderate-sized area of mild stress-induced ischemia left ventricular lateral wall Cath delayed for further optimization Continue to monitor on telemetry Echocardiogram ordered Cardiology prefers to perform heart catheterization before patient leaves hospital Hemorrhoidectomy performed 02/22, monitor H&H Cardiology following Hyponatremia IV fluids discontinued/oral sodium discontinued by nephrology 02/19 Nephrology consulted and following Sodium improved Suspected allergic reaction Was treated for allergic reaction ED with Benadryl/solu Medrol Had significant improvement in her facial swelling Possibly related to minoxidil-will switch to doxazosin Flexeril also discontinued Acute kidney injury Nephrology consulted and following Appreciate further recommendations Diabetes mellitus type 2 ACHS Accu-Chek, sign scale insulin History of atrial fibrillation on chronic anticoagulation Hold heparin drip/Eliquis given prior blood per rectum Consider restarting therapeutic Lovenox 02/23 as patient may have heart catheterization during this admission Acute blood loss anemia/Bright red blood per rectum S/P hemorrhoidectomy 02/22 Reports she deals with small amounts of bright red blood per rectum at home with hemorrhoids Heparin discontinued Status post hemorrhoidectomy 02/22 S/P 2 unit PRBC thus far admission VTE: SCD Code: Full Dispo: 2 to 3 days Time Spent Managing Pts Care (In Minutes): 35
[2024-02-23] MEDS: DOCUSATE NA 100 MG CAP PO SCH (21:05)
--- NOTE | 2024-02-24 00:29 | PN ---
Date of Progress Note: 02/23/2024 Chief Complaint: Acute kidney injury, hyponatremia, fluid overload, cardiorenal syndrome, allergic r eaction, coronary artery disease. History: The patient is awaiting a cardiac catheterization. Cardiac catheterization was scheduled, but currently is on hold because the patient developed hemorrhoidal bleeding, rectal bleeding, which is subsiding. The patient received blood transfusion. Review of Systems: Denies chest pain, palpitations. Physical Examination: Lungs: Clear to auscultation bilaterally. Heart: S1, S2. Abdomen: Soft, benign. Extremities: No edema. Impression And Plan: 1.Acute kidney injury secondary to cardiorenal syndrome, acute tubular necrosis. Serum creatinine l evel improved to 1.3. The patient was started on mild hydration, prior cardiac catheterization. The patient will continue p.o. fluid restriction to control hyponatremia. Sodium level overall improved . Sodium chloride tablets were stopped and urea is stopped. The patient will continue p.o. hydratio n. Monitor electrolytes. 2.Chronic kidney disease stage 3. Baseline serum creatinine level is 44. Baseline GFR level is 44 mL/minute as of March 2022. Monitor renal panel. Avoid nephrotoxic medication. 3.Hypertension. Blood pressure medication adjusted. Continue to advance blood pressure medication for optimal blood pressure control. 4.Hyponatremia. Avoid hydrochlorothiazide. Avoid nonsteroidal anti-inflammatory medication. Encou raged by mouth solid food intake and protein intake. 5.Non-ST elevation myocardial infarction. Stress test performed on February 18, 2024, showed moderate sized area of mid stress-induced ischemia of the left ventricular and lateral wall and a cardiac catheterization will be scheduled by Cardiology. GUILLERMINA/FAUSTO Voice ID: [id number] Report ID: [id number]
[2024-02-24 07:35] LABS: Anion Gap 6.2 mEq/L (5.0-15.0); Potassium 4.2 mEq/L (3.5-5.1)
[2024-02-24 07:50] LABS: Hemoglobin 9.4 g/dL (12.0-15.0); MCH 29.8 pg (27.0-35.0); MCHC 32.5 g/dL (32.0-36.0); MCV 91.6 fL (80-100); MPV 7.7 fL (7.6-11.3); Platelets 231 thou/uL (152-406); RBC Red Blood Cell Count 3.17 M/uL (3.86-4.86); Red Cell Distribution Width 13.6 % (12.1-15.2)
[2024-02-24] MEDS: HYDRALAZINE HCL 25 MG TABLET PO SCH (08:58)
--- NOTE | 2024-02-24 15:38 | PN ---
Date of Progress Note: 02/24/2024 Subjective: Patient is awake, alert. No complaint. Vitals stable, afebrile. Minimal bleeding from the surgery site. H and H were 9.4 and 29.0. Assessment: Status post hemorrhoidectomy, complex in nature, x2. Recommendation: Continue wound care order as given. The patient can have a cath hopefully tomorrow. Follow up in my office. Discharge instructions given. /MODL Voice ID: [id number] Report ID: [id number]
--- NOTE | 2024-02-24 15:52 | P.PN ---
Subjective Date of Service: 02/24/24 Chief Complaint: allergic reaction, fluid volume overload A/p Pt was admitted with facial swelling, had JOSE, , found to have NSTEMI was on heaprin drip, had lower gi bleeding due to hemorrhoid bleeding, S/p hemorrhoidectomy # Acute kidney injury secondary to cardiorenal syndrome, acute tubular necrosis. Cr stable The patient was started on mild hydration prior to cardiac catheterization. renal dose emds avoid NSAID and contrast #. Hypertension. BP elevated on Coreg, nifedipine , doxazocin and hydaralzine if BP cont to be elevated ,will consider clonidine #. Hyponatremia. resolved fluid restriction #. NSTEMI. Stress test performed 02/18/2024 showed moderate-sized area of mild stress-induced ischemia left ventricular lateral wall. LHC planned when stable #. Hx of chronic afib AC on hold 2/2 rectal bleed. #Lower Gi bleeding S/p hemorrhoidectomy Physical Examination - Vital Signs Temperature: 98.6 F Blood Pressure: 162/67 Pulse: 66 Respirations: 15 Pulse Ox (%): 97
--- NOTE | 2024-02-24 20:25 | P.PN ---
Date of Service: 02/24/24 Subjective: H&H stable at this morning Awaiting heart cath, Dr. Morales canceled Walking the halls this morning with her ROS: 10 point ROS as noted above, otherwise negative Physical exam GEN: AAOx3, NAD HEENT: Normal conjunctiva, sclera anicteric CV: RRR, S1 S2 present Pulm: Nonlabored respirations on room air ABD: Soft and benign on palpation, ND/NT MSK: No joint tenderness Integumentary: No rashes Neuro: Normal speech, normal affect Vitals reviewed Problem List NSTEMI Hyponatremia Suspected allergic reaction Acute kidney injury Diabetes mellitus type 2 History of atrial fibrillation on chronic anticoagulation Acute blood loss anemia/Bright red blood per rectum S/P hemorrhoidectomy 02/22 Plan NSTEMI Troponin peaked 1157 Heparin drip discontinued 02/19 AM Stress test performed 02/17-shows moderate-sized area of mild stress-induced ischemia left ventricular lateral wall LHC canceled per Dr. Morales Continue to monitor on telemetry Echocardiogram ordered Cardiology following and Canceled heart catheterization Hemorrhoidectomy performed 02/22, monitor H&H Hyponatremia- resolved IV fluids discontinued/oral sodium discontinued by nephrology 02/19 Nephrology consulted and following Sodium improved, 136 today Suspected allergic reaction Was treated for allergic reaction ED with Benadryl/solu Medrol Had significant improvement in her facial swelling Possibly related to minoxidil-will switch to doxazosin Flexeril also discontinued Acute kidney injury Nephrology consulted and following Appreciate further recommendations Diabetes mellitus type 2 ACHS Accu-Chek, sign scale insulin History of atrial fibrillation on chronic anticoagulation Hold heparin drip/Eliquis given prior blood per rectum Continue to monitor H/H Acute blood loss anemia/Bright red blood per rectum S/P hemorrhoidectomy 02/22 Reports she deals with small amounts of bright red blood per rectum at home with hemorrhoids Heparin discontinued Status post hemorrhoidectomy 02/22 S/P 2 unit PRBC thus far admission VTE: SCD Code: Full Dispo: 2 to 3 days
[2024-02-24] MEDS ORDERED: HEPARIN 5000 UNIT/ML 1 ML VIAL SQ SCH (21:00)
[2024-02-24] MEDS: DOXAZOSIN 2 MG TAB PO SCH (21:33)
[2024-02-25 01:07] VITALS: O2SAT 98
[2024-02-25 04:46] LABS: Hematocrit 28.3 % (36.0-45.0); Hemoglobin 9.8 g/dL (12.0-15.0); MCH 31.2 pg (27.0-35.0); MCHC 34.5 g/dL (32.0-36.0); MCV 90.4 fL (80-100); MPV 7.1 fL (7.6-11.3); Platelets 242 thou/uL (152-406); RBC Red Blood Cell Count 3.13 M/uL (3.86-4.86); Red Cell Distribution Width 13.6 % (12.1-15.2)
[2024-02-25 04:53] LABS: Anion Gap 7.9 mEq/L (5.0-15.0); Potassium 3.9 mEq/L (3.5-5.1)
[2024-02-25 08:36] VITALS: BP 160/76
--- NOTE | 2024-02-25 10:11 | P.DS ---
Admission Date: 02/17/24 Discharge Date: 02/25/24 Disposition: ROUTINE DISCHARGE Discharge Condition: FAIR Reason for Admission: allergic reaction, fluid volume overload Brief History of Present Illness: Jesi Lee is a 78 year old female with Pmhx Atrial fibrillation, hypertension, diabetes mellitus type 2, high cholesterol, chronic renal disease presents to the ED with chief complaint of facial swelling that started last night at midnight. She was discharged on new medications. On examination, she has audible wheezing, murmur noted, bilateral lung sound with crackles. Lab evaluation showing fluid volume overload with hyponatremia. Lasix, steroids, and benadryl given in the ED which she tolerated well. On examination mid facial swelling noted without swelling or edema to bilateral lower extremity, audible wheezing noted with expiratory wheezing on auscultation. Initial vitals BP 166 / 57; Pulse 68; Resp 18; Temp 98.1(TE); Pulse Ox 100% Labarotory evaluation H&H 8.5/24.2, sodium 118, CO2 19, BNP 5910, troponin 898.1 creatinine 45/2.05, GFR 24, serum glucose 167 Chest x-ray reports "no acute cardiopulmonary process" Jesi will be admitted to hospitalist service for further evaluation and treatment of allergic reaction, hyponatremia, elevated troponin. Vital Signs/Physical Exam: Temp Pulse Resp BP Pulse Ox 7.0 F L 63 18 160/76 H 98 02/25/24 04:00 02/25/24 08:33 02/25/24 04:00 02/25/24 08:33 02/25/24 04:00 Laboratory Data at Discharge: WBC 10.90 thou/uL (4.3-10.9) 02/25/24 04:14 Hgb 9.8 g/dL (12.0-15.0) L 02/25/24 04:14 Hct 28.3 % (36.0-45.0) L 02/25/24 04:14 Plt Count 242 thou/uL (152-406) 02/25/24 04:14 PT 14.7 SECONDS (9.5-12.5) H 02/16/24 20:42 INR 1.35 02/16/24 20:42 APTT 96.1 SECONDS (24.3-36.9) H 02/20/24 03:47 Sodium 136 mEq/L (136-145) 02/25/24 04:14 Potassium 3.9 mEq/L (3.5-5.1) 02/25/24 04:14 BUN 21 mg/dL (7-18) H 02/25/24 04:14 Creatinine 1.31 mg/dL (0.55-1.02) H 02/25/24 04:14 Glucose 131 mg/dL (74-106) H 02/25/24 04:14 Uric Acid 9.1 mg/dL (2.6-6.0) H 02/16/24 21:03 Phosphorus 2.1 mg/dL (2.5-4.9) L 02/23/24 06:26 Magnesium 1.9 mg/dL (1.6-2.4) 02/23/24 06:26 Total Bilirubin 0.3 mg/dL (0.2-1.0) 02/21/24 07:14 AST 15 U/L (15-37) 02/21/24 07:14 ALT 37 U/L (13-56) 02/21/24 07:14 Alkaline Phosphatase 51 U/L (45-117) 02/21/24 07:14 Home Medications: Aspirin [Aspirin EC 81 MG] 81 mg PO DAILY 01/22/24 Atorvastatin Calcium [Lipitor*] 20 mg PO BEDTIME 01/22/24 Gabapentin [Neurontin*] 600 mg PO TID 01/22/24 Na Bicarb Tab [Sodium Bicarb 325 MG Tab*] 650 mg PO BID 01/22/24 Hydrocodone 5/APAP 325 [[place] 5/325*] 1 tab PO Q6HP PRN #30 tab 01/25/24 Apixaban [Eliquis *] 5 mg PO BID 02/06/24 Nifedipine Xl [Procardia Xl*] 30 mg PO BID #60 tab 02/13/24 Spironolactone [Aldactone*] 25 mg PO DAILY 02/16/24 carvediloL [Coreg*] 25 mg PO BID 02/16/24 Doxazosin [Cardura*] 4 mg PO BID 30 Days #120 tab 02/25/24 Hydralazine [Apresoline*] 50 mg PO TID #90 tab 02/25/24 Hydrocortisone Acetate [Hemmorex-Hc] 30 mg RC BID PRN #30 supp.rect 02/25/24 New Medications: Hydralazine [Apresoline*] 50 mg PO TID #90 tab Doxazosin [Cardura*] 4 mg PO BID 30 Days #120 tab Hydrocortisone Acetate [Hemmorex-Hc] 30 mg RC BID PRN #30 supp.rect PRN Reason: Hemorrhoids Physician Discharge Instructions: Jesi Lee presented to the ED with chief complaint of swelling to her face and legs. Initially treated for an allergic reaction since she had started three new medications. Minoxidil (Loniten) and flexeril were stopped. Minoxidil is know to cause fluid retention which appeared to be the situation that Jesi experienced. Fluid was reduced successfully and improvement was seen quickly. She presented with elevated troponin and Dr. Morales was consulted who performed a stress test resulting with "Moderate sized area of mild stress-induced ischemia left ventricular lateral wall." Please follow up with your stitcher standard machine for further cardiac management. Transfusions were needed, tolerated, and she was found to have bleeding hemorrhoids. Dr. Castro was consulted and a hemorrhoidectomy was performed on 02/23/2024. Cleansing and dressing instructions for rectal area are below. 1. Please call and schedule a follow-up appointment with your PCP in 3-5 days - Please follow-up with your PCP for medication refills/adjustments -Please address her elevated blood pressure management 2. Please call and schedule a follow-up appointment with your stitcher standard machine in one week. 3. Continue with diabetic diet 4. Ambulate with precautions 5. Return to ED if symptoms worsen Sitz bath twice daily and after bowel movement Proctoscopy HC 2.5% to anus twice daily and as needed High-fiber diet Stool softeners Fiber supplementMiraLAX for Metamucil Follow-up my office 1 to 2 weeks, call for appointment No heavy lifting or strenuous exercise Diet: High-fiber Activity: No lifting more than 10 lbs Followup: Serge Morales MD [ACTIVE - CAN ADMIT] - 1-2 Weeks Mary Jane Mejia MD [Primary Care Provider] - Efraín Castro MD [ACTIVE - CAN ADMIT] - 1-2 Weeks
[2024-02-25 10:44] VITALS: TEMP 98.6
--- NOTE | 2024-02-25 12:07 | PN ---
Date of Progress Note: 02/25/2024 Subjective: The patient was admitted with [id number] IA, acute kidney injury secondary to card iorenal. The patient did undergo cardiac cath, hydrated before the cardiac cath. The patient tolera celina the procedure. The patient feeling better. The patient planned to follow up with Cardiology as outpatient with her private Cardiology. The patient has no shortness of breath. Physical Examination: General: When I saw the patient, the patient is lying in bed, flat. No shortness of breath. Vital Signs: Blood pressure 160/76, pulse of 63, afebrile. Chest: Clear to auscultation. Heart: S1, S2 regular. Abdomen: Soft, nontender. Extremities: No edema. Neurologic: Alert. No focality. Laboratory Data: Hemoglobin 9.8. Sodium 136, potassium 3.9, bicarb 29, BUN 21, creatinine down to 1 .3, calcium 8.1. Current Medications: The patient is on include atorvastatin, diphenhydramine, carvedilol 25 b.i.d., Cardura, hydralazine 50 t.i.d., nifedipine, gabapentin 600 b.i.d., insulin, docusate, hydrocodone. Assessment And Plan: 1.Acute kidney injury secondary to cardiorenal, currently the patient is normal volume. Keep holdin g diuresis. We will continue to monitor the patient. 2.Hypertension, controlled, optimal. Continue current treatment. I am going to go ahead and increa se her hydralazine to 75 for better blood pressure control. 3.Non-ST elevation IA. Follow up with Cardiology. Plan for outpatient cardiac cath. 4.Deconditioning. Continue PT/OT. 5.Hyponatremia, dilutional. We will optimize the fluid status. MA/MODL Voice ID: [id number] Report ID: [id number]
[2024-02-25] MEDS ORDERED: HYDRALAZINE HCL 25 MG TABLET PO SCH (14:00)
== END 2024-02-25 11:46 | disposition home or self-care (01) | DRG 987 ==
LOC: ER 08:58 → ERHOLD 11:57 → 4TH 13:52 → OBSVTOIN 02-17 06:58
PROVIDERS: ADMIT Internal Medicine; ATTEND Internal Medicine
PROC: 30233N1 Transfusion of Nonautologous Red Blood Cells into Peripheral Vein, Percutaneous Approach (ICD-10-PCS; 2024-02-18)
PROC: 06BY0ZC Excision of Hemorrhoidal Plexus, Open Approach (ICD-10-PCS; principal; 2024-02-23 11:15)
DX: I13.0 Hypertensive heart and chronic kidney disease with heart failure and stage 1 through stage 4 chronic kidney disease, or unspecified chronic kidney disease (principal); I21.4 Non-ST elevation (NSTEMI) myocardial infarction; I50.31 Acute diastolic (congestive) heart failure; N17.0 Acute kidney failure with tubular necrosis; E87.1 Hypo-osmolality and hyponatremia; K62.5 Hemorrhage of anus and rectum; D62 Acute posthemorrhagic anemia; I48.20 Chronic atrial fibrillation, unspecified; N18.30 Chronic kidney disease, stage 3 unspecified; E11.22 Type 2 diabetes mellitus with diabetic chronic kidney disease; E11.65 Type 2 diabetes mellitus with hyperglycemia; D63.1 Anemia in chronic kidney disease; K64.9 Unspecified hemorrhoids; E78.00 Pure hypercholesterolemia, unspecified; H91.90 Unspecified hearing loss, unspecified ear; E88.09 Other disorders of plasma-protein metabolism, not elsewhere classified; T78.3XXA Angioneurotic edema, initial encounter; Z93.3 Colostomy status; Z88.1 Allergy status to other antibiotic agents; Z79.82 Long term (current) use of aspirin; Z79.01 Long term (current) use of anticoagulants; Z79.02 Long term (current) use of antithrombotics/antiplatelets; Z90.49 Acquired absence of other specified parts of digestive tract; Z79.899 Other long term (current) drug therapy; Z90.710 Acquired absence of both cervix and uterus
CPT/HCPCS: 36415; 36430; 71045; 76770; 78452; 80048; 80053; 80076; 81001; 82533; 82947; 83735; 83880; 83930; 83935; 84100; 84300; 84443; 84484; 84550; 85014; 85018; 85025; 85027; 85610; 85730; 86850; 86900; 86901; 86920; 88302; 88304; 93005; 93017; 93306; 96374; 96375; 99285; A9500; G0378; J0360; J0694; J1100; J1200; J1644; J1815; J1940; J2001; J2405; J2704; J2785; J2919; J2920; J3010; J3475; J7030; J7050; J7614; P9016

== ENCOUNTER 2024-03-02 15:08 | Emergency (ER) | payer MEDICARE ==
--- NOTE | 2024-03-02 15:46 | RAD REPORT ---
EXAM DESCRIPTION: CT - Facial Bones W/ Mpr - 03/02/2024 3:26 pm CLINICAL HISTORY: Facial injury with pain status post fall COMPARISON: None TECHNIQUE: Computed axial tomography of the face was obtained. Coronal and sagittal reconstruction w as performed. All CT scans are performed using dose optimization technique as appropriate and may include automated exposure control or mA/KV adjustment according to patient size. FINDINGS: A fracture is not seen. A TMJ dislocation is not noted. The globes are intact. Fluid within the sinuses is not seen. IMPRESSION: Negative for a facial fracture.
--- NOTE | 2024-03-02 15:47 | RAD REPORT ---
EXAM DESCRIPTION: CT - Head C Spine Mpr Wo Con - 03/02/2024 3:25 pm CLINICAL HISTORY: Head and neck injury status post fall. Head and neck pain COMPARISON: 2021 and January 20232023 TECHNIQUE: Computed axial tomography of the head and cervical spine was obtained. Sagittal and coronal reconstruction was performed. All CT scans are performed using dose optimization technique as appropriate and may include automated exposure control or mA/KV adjustment according to patient size. FINDINGS: Left frontal scalp hematoma. An intracranial bleed is not seen. The ventricles are normal in caliber. No significant hypodensity within the brain. An extra-axial fluid collection is not noted. Fluid within the visualized sinuses and mastoids is not seen A cervical fracture is not visualized. No dislocation is noted. Anterior fusion C4 through C7 IMPRESSION: No acute intracranial abnormality is seen. A cervical fracture is not visualized. If the patient continues to have symptoms to suggest intracranial /spinal cord pathology then MRI wou ld be recommended
--- NOTE | 2024-03-02 16:09 | ER ---
Nurse's Notes [facility] Name: Jesi Lee Age: 78 yrs Sex: Female : 1945 Arrival Date: 03/02/2024 Time: 15:08 Bed 20 Private MD: Diagnosis: Unspecified injury of head, initial encounter Presentation: 03/02 15:12 Chief complaint: Patient states: she fell 2 days ago, with LOC hitting her head. ap3 patient states she is on Eliquis. patient presents to the ED with bruising to her face. patients states she came to the ED after visiting her PCP who informed her to come to the ED for further evaluation. Coronavirus screen: At this time, the client does not indicate any symptoms associated with coronavirus-19. Ebola Screen: No symptoms or risks identified at this time. Initial Sepsis Screen: Does the patient meet any 2 criteria? No. Patient's initial sepsis screen is negative. Does the patient have a suspected source of infection? No. Patient's initial sepsis screen is negative. Risk Assessment: Do you want to hurt yourself or someone else? Patient reports no desire to harm self or others. Onset of symptoms was February 29, 2024. 15:12 Method Of Arrival: Wheelchair ap3 15:12 Acuity: RENETTA 2 ap3 15:16 Care prior to arrival: None. Mechanism of Injury: Fall from standing position. Trauma ap3 event details: Injury occurred in the [facility], Injury occurred: at home. Injury occurred: February 29, 2024. Triage Assessment: 15:15 General: Appears in no apparent distress. Behavior is calm, cooperative, appropriate ap3 for age. Pain: Complains of pain in face. Neuro: Level of Consciousness is awake, alert, obeys commands, Oriented to person, place, time, situation. Cardiovascular: Patient's skin is warm and dry. Respiratory: Airway is patent Respiratory effort is even, unlabored, Respiratory pattern is regular, symmetrical. Derm: Bruising that is dark purple, yellow, on face. Historical: - Allergies: 15:14 Cipro; ap3 15:14 minoxidil (bulk); ap3 - PMHx: 15:14 Atrial fibrillation; Diabetes; Diverticulitis; Hypertension; ruptured bowel; ap3 - PSHx: 15:14 bowel resection with colostomy and reversal; hysterectomy; ap3 - Immunization history:: Client reports receiving the 2nd dose of the Covid vaccine. - Infectious Disease History:: Denies. - Immunization history: Last tetanus immunization: - up to date. - Social history:: Smoking status: Patient denies any tobacco usage or history of. Screenin:19 [facility] ED Fall Risk Assessment (Adult) History of falling in the last 3 months, mb9 including since admission Yes- single mechanical fall (1 pt) Confusion or Disorientation No (0 pts) Intoxicated or Sedated No (0 pts) Impaired Gait No (0 pts) Mobility Assist Device Used No (0 pt) Altered Elimination No (0 pt) Score/Fall Risk Level 3 or more points = High Risk Oriented to surroundings, Maintained a safe environment, Educated pt \T\ family on fall prevention, incl call for assistance when getting out of bed, Assessed \T\ reinforced patient's understanding of fall precautions, Provided non-skid footwear, Hourly rounding (assess needs \T\ fall precautionary measures) done. Abuse screen: Denies threats or abuse. Nutritional screening: No deficits noted. Tuberculosis screening: No symptoms or risk factors identified. Primary Survey: 15:16 NO uncontrolled hemorrhage observed. Breathing/Chest: Spontaneous respiratory effort, ap3 equal unlabored respirations, breath sounds clear bilaterally, regular pattern, symmetrical chest rise and fall. Circulation: No external hemorrhage present. Regular and strong central pulse, skin warm/dry/normal color. Disability Client is alert. Exposure/Environment: A warming method has been applied: A warm blanket has been provided to the patient. 15:21 Reassessment Alertness and Airway: Awake and alert. The airway is patent. Breathing: mb9 Spontaneous respiratory effort, equal unlabored respirations, breath sounds clear bilaterally, regular pattern with symmetrical chest rise and fall. Respiratory effort Spontaneous Circulation: No external hemorrhage noted. Regular and strong central pulse, skin warm/dry/normal color. Disability: Pupils Pupils are equal, round, reactive to light and accomodation. Alert. Secondary Survey: 15:20 HEENT: Head No injury/deformity Face Other swelling and bruising noted to face Eyes: No mb9 injury or deformity noted. Ears: clear bilaterally. Nose: clear to bilateral nares. Throat: No injury or deformity noted. Gastrointestinal: No deficits noted. : No deficits noted. Musculoskeletal: No signs and/or symptoms reported regarding the musculoskeletal system. Assessment: 15:55 Reassessment: No changes from previously documented assessment. Patient and/or family mb9 updated on plan of care and expected duration. Pain level reassessed. Patient is alert, oriented x 3, equal unlabored respirations, skin warm/dry/pink. Vital Signs: 15:12 BP 230 / 69; Pulse 71; Resp 18; Temp 97.7; Pulse Ox 100% ; Weight 53.52 kg; Height 5 ap3 ft. 1 in. ; 15:55 BP 153 / 50; Pulse 60; Resp 16; Pulse Ox 100% on R/A; mb9 15:12 Body Mass Index 22.30 (53.52 kg, 154.94 cm) ap3 [place] Coma Score: 15:16 Eye Response: spontaneous(4). Motor Response: obeys commands(6). Verbal Response: ap3 oriented(5). Total: 15. Trauma Score (Adult): 15:21 Eye Response: spontaneous(1); Verbal Response: oriented(1); Motor Response: obeys mb9 commands(2); Systolic BP: > 89 mm Hg(4); Respiratory Rate: 10 to 29 per min(4); Travis Score: 15; Trauma Score: 12 ED Course: 15:09 Patient arrived in ED. rg4 15:09 Julienne Smith [facility]-C [facility]. kb 15:09 Rishi Patino MD is Attending Physician. kb 15:14 Triage completed. ap3 15:16 Arm band placed on right wrist. ap3 15:18 Karolina Amaya, RAUL is Primary Nurse. mb9 15:19 Provided Education on: press call light if needing anything. mb9 15:19 Placed in gown. Bed in low position. Call light in reach. Side rails up X 1. Client mb9 placed on continuous cardiac and pulse oximetry monitoring. NIBP monitoring applied. clinical research monitor on. Door closed. Noise minimized. Warm blanket given. 15:19 Thermoregulation: warm blanket given to patient. mb9 15:20 No provider procedures requiring assistance completed. mb9 15:26 CT Facial Bones W/O Con In Process Unspecified. EDMS 15:26 CT Head C Spine In Process Unspecified. EDMS 16:09 Patient did not have IV access during this emergency room visit. mb9 Administered Medications: No medications were administered Medication: 15:19 VIS not applicable for this client. mb9 Outcome: 16:09 Discharge ordered by MD. whyte 16:09 Discharged to home ambulatory, with family, mb9 16:09 Condition: stable 16:09 Discharge instructions given to patient, Instructed on discharge instructions, follow up and referral plans. Demonstrated understanding of instructions, follow-up care, 16:15 Patient left the ED. mb9 Signatures: Dispatcher [employer] EDMS Julienne Smith, ISAAC ALBRECHT-Laly Castelan rg4 Ayla Alcala, RN RN ap3 Karolina Amyaa RN RN mb9
--- NOTE | 2024-03-02 16:10 | EDPHYS ---
Physician Documentation [facility] Name: Jesi Lee Age: 78 yrs Sex: Female : 1945 Arrival Date: 03/02/2024 Time: 15:08 Bed 20 Private MD: ED Physician Rishi Patino HPI: 03/02 17:13 This 78 yrs old Female presents to ER via Wheelchair with complaints of Fall kb Injury. 17:13 Pt is a 78 year old female who presents for facial bruising after a fall 2 days ago. kb States she went to her PCP today and was told to come to the ER for a CT scan. Denies any pain, dizziness. Historical: - Allergies: 15:14 Cipro; ap3 15:14 minoxidil (bulk); ap3 - PMHx: 15:14 Atrial fibrillation; Diabetes; Diverticulitis; Hypertension; ruptured bowel; ap3 - PSHx: 15:14 bowel resection with colostomy and reversal; hysterectomy; ap3 - Immunization history:: Client reports receiving the 2nd dose of the Covid vaccine. - Infectious Disease History:: Denies. - Immunization history: Last tetanus immunization: - up to date. - Social history:: Smoking status: Patient denies any tobacco usage or history of. ROS: 17:09 Constitutional: As per HPI kb Exam: 17:09 Constitutional: This is a well developed, well nourished patient who is awake, alert, kb and in no acute distress. Eyes: Pupils equal round and reactive to light, extra-ocular motions intact. Lids and lashes normal. Conjunctiva and sclera are non-icteric and not injected. Cornea within normal limits. Periorbital areas with no swelling, redness, or edema. ENT: Moist Mucous membranes Cardiovascular: Regular rate Respiratory: Respirations even and unlabored. No increased work of breathing. Talking in full sentences Abdomen/GI: Soft, non-tender. No distention Skin: Warm, dry with normal turgor. Normal color. MS/ Extremity: Pulses equal, no cyanosis. Neurovascular intact. Full, normal range of motion. Neuro: Awake and alert, GCS 15, oriented to person, place, time, and situation. Moves all extremities. Normal gait. 17:11 Head/face: Noted is no obvious of injury or deformity except ecchymosis, that is kb moderate, that is severe, of the forehead, right eye, right cheek, left cheek and left eye, Vital Signs: 15:12 BP 230 / 69; Pulse 71; Resp 18; Temp 97.7; Pulse Ox 100% ; Weight 53.52 kg; Height 5 ap3 ft. 1 in. ; 15:55 BP 153 / 50; Pulse 60; Resp 16; Pulse Ox 100% on R/A; mb9 15:12 Body Mass Index 22.30 (53.52 kg, 154.94 cm) ap3 [place] Coma Score: 15:16 Eye Response: spontaneous(4). Motor Response: obeys commands(6). Verbal Response: ap3 oriented(5). Total: 15. Trauma Score (Adult): 15:21 Eye Response: spontaneous(1); Verbal Response: oriented(1); Motor Response: obeys mb9 commands(2); Systolic BP: > 89 mm Hg(4); Respiratory Rate: 10 to 29 per min(4); [place] Score: 15; Trauma Score: 12 MDM: 15:09 Patient medically screened. kb 17:11 Differential diagnosis: closed head injury, contusion, fracture, ICH. Data reviewed: kb vital signs, nurses notes. Historians other than the Patient: Spouse/Significant Other: . Counseling: I had a detailed discussion with the patient and/or guardian regarding the historical points, exam findings, and any diagnostic results supporting the discharge/admit diagnosis, radiology results, the need for outpatient follow up, a family practitioner, to return to the emergency department if symptoms worsen or persist or if there are any questions or concerns that arise at home. ED course: Pt is asymptomatic of blood pressure. Pt and state pt's blood pressure is normally over 180 systolic. 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 . 03/02 15:13 Order name: CT Facial Bones W/O Con; Complete Time: 15:50 kb 03/02 15:13 Order name: CT Head C Spine; Complete Time: 15:50 kb 03/02 15:51 Order name: Vital Signs; Complete Time: 15:55 kb Administered Medications: No medications were administered Disposition: 19:43 Co-signature as Attending Physician, Rishi Patino MD I reviewed the patient's care rn provided by the Advanced Practice Provider and agree with the diagnosis and treatment plan. Disposition Summary: 03/02/24 16:09 Discharge Ordered Notes: Location: Home kb Condition: Stable(03/02/24 16:09) kb Diagnosis - Unspecified injury of head, initial encounter kb Followup: kb - With: Emergency Department - When: As needed - Reason: Worsening of condition Followup: kb - With: Private Physician - When: 2 - 3 days - Reason: Recheck today's complaints, Continuance of care, Re-evaluation by your physician Discharge Instructions: - Discharge Summary Sheet kb - Hematoma, [id number] kb - Head Injury, Adult, [id number] kb Forms: - Medication Reconciliation Form kb - Antibiotic Education kb - Prescription Opioid Use kb - Patient Portal Instructions kb - Leadership Thank You Letter kb Signatures: Dispatcher [employer] EDMS Julienne Smith, AMBROCIO-C AMBROCIO-Rishi Flores MD MD rn Ayla Alcala RN RN ap3 Karolina Amaya, RN RN mb9 Corrections: (The following items were deleted from the chart) 15:13 15:13 Head C Spine MPR Wo Con+CT.RAD.BRZ ordered. EDVA EDMS 16:09 16:09 Fair kb kb 17:11 17:09 Constitutional: This is a well developed, well nourished patient who is awake, kb alert, and in no acute distress. Eyes: Pupils equal round and reactive to light, extra-ocular motions intact. Lids and lashes normal. Conjunctiva and sclera are non-icteric and not injected. Cornea within normal limits. Periorbital areas with no swelling, redness, or edema. ENT: Moist Mucous membranes kb
[2024-03-02 16:48] VITALS: BP 153/50; TEMP 97.7; O2SAT 100
== END 2024-03-02 16:15 | disposition home or self-care (01) ==
LOC: ER 15:08
DX: S00.83XA Contusion of other part of head, initial encounter (principal); Z88.1 Allergy status to other antibiotic agents; Z88.8 Allergy status to other drugs, medicaments and biological substances
CPT/HCPCS: 70450; 70486; 72125; 76377

== ENCOUNTER 2024-06-10 16:53 | Inpatient (IN) | payer MEDICARE ==
[2024-06-10 17:46] LABS: Absolute Basophils 0.1 K/uL (0-0.5); Absolute Eosinophils 0.1 K/uL (0-0.5); Absolute Lymphocytes (CBC) 1.6 K/uL (0.7-4.9); Absolute Monocytes 0.5 K/uL (0.1-1.3); Absolute Neutrophil 5.9 K/uL (1.8-8.0); Eosinophils % 1.3 % (0-4.4); Hematocrit 30.6 % (36.0-45.0); Hemoglobin 10.3 g/dL (12.0-15.0); Lymphocytes % 19.6 % (15.3-44.8); MCH 29.2 pg (27.0-35.0); MCHC 33.6 g/dL (32.0-36.0); MPV 6.9 fL (7.6-11.3); Neutrophils % 72.1 % (41.7-73.7); Nucleated Red Blood Cells % 0.1 % (0-0); Platelets 238 thou/uL (152-406); RBC Red Blood Cell Count 3.52 M/uL (3.86-4.86); Red Cell Distribution Width 14.2 % (12.1-15.2)
[2024-06-10 17:56] LABS: Anion Gap 11.8 mEq/L (5.0-15.0); Potassium 3.8 mEq/L (3.5-5.1); Troponin High Sensitivity 9.6 pg/mL (<58.9)
--- NOTE | 2024-06-10 18:28 | RAD REPORT ---
EXAM DESCRIPTION: [facility] Single View06/10/2024 6:06 pm CLINICAL HISTORY: Chest pain COMPARISON: February 2024 FINDINGS: The lungs appear clear of acute infiltrate. The heart is mildly to moderately enlarged IMPRESSION: No acute abnormalities displayed
--- NOTE | 2024-06-10 18:46 | ER ---
Nurse's Notes [facility] Name: Jesi Lee Age: 78 yrs Sex: Female : 1945 Arrival Date: 06/10/2024 Time: 16:53 Bed 6 Private MD: Diagnosis: Chest pain, unspecified Presentation: 06/10 17:11 Chief complaint: Patient states: Pt c/o increased SOB with exertion and chest tightness tl4 x 1 hour. Pt states she has a 'small blockage' in her heart. Pt denies nausea, diaphoresis, dizziness. Coronavirus screen: At this time, the client does not indicate any symptoms associated with coronavirus-19. Ebola Screen: No symptoms or risks identified at this time. Initial Sepsis Screen: Does the patient meet any 2 criteria? No. Patient's initial sepsis screen is negative. Does the patient have a suspected source of infection? No. Patient's initial sepsis screen is negative. Risk Assessment: Do you want to hurt yourself or someone else? Patient reports no desire to harm self or others. Onset of symptoms was June 10, 2024 at 16:00. 17:11 Method Of Arrival: Wheelchair tl4 17:11 Acuity: RENETTA 2 tl4 Triage Assessment: 17:13 General: Appears distressed, Behavior is calm, cooperative. Pain: Complains of pain in tl4 chest. EENT: No signs and/or symptoms were reported regarding the EENT system. Neuro: Level of Consciousness is awake, alert, obeys commands, Oriented to person, place, time, situation, Moves all extremities. Full function Gait is steady, Speech is normal. Cardiovascular: Reports shortness of breath, chest tightness Denies diaphoresis, lightheadedness, nausea, palpitations, Capillary refill < 3 seconds Patient's skin is warm and dry. Respiratory: Reports shortness of breath on exertion cough that is dry, Airway is patent Respiratory effort is even, unlabored, Respiratory pattern is regular, symmetrical. GI: No signs and/or symptoms were reported involving the gastrointestinal system. : No signs and/or symptoms were reported regarding the genitourinary system. Derm: No signs and/or symptoms reported regarding the dermatologic system. Musculoskeletal: No signs and/or symptoms reported regarding the musculoskeletal system. Historical: - Allergies: 17:09 Cipro; hb 17:09 minoxidil (bulk); hb - PMHx: 17:09 Atrial fibrillation; Diabetes; Diverticulitis; Hypertension; ruptured bowel; hb - PSHx: 17:09 bowel resection with colostomy and reversal; hysterectomy; hb - Immunization history:: Adult Immunizations up to date. - Infectious Disease History:: Denies. - Family history:: not pertinent. - Hospitalizations: : No recent hospitalization is reported. - Social history:: Smoking status: Patient denies any tobacco usage or history of. Screenin:10 [facility] ED Fall Risk Assessment (Adult) History of falling in the last 3 months, hb including since admission No falls in past 3 months (0 pts) Confusion or Disorientation No (0 pts) Intoxicated or Sedated No (0 pts) Impaired Gait No (0 pts) Mobility Assist Device Used No (0 pt) Altered Elimination No (0 pt) Score/Fall Risk Level 0 - 2 = Low Risk Oriented to surroundings, Maintained a safe environment, Educated pt \T\ family on fall prevention, incl call for assistance when getting out of bed. Abuse screen: Denies threats or abuse. Denies injuries from another. Nutritional screening: No deficits noted. Tuberculosis screening: No symptoms or risk factors identified. Assessment: 17:31 General: Appears in no apparent distress. Behavior is calm, cooperative. Pain: Pain hb currently is 6 out of 10 on a pain scale. Neuro: Level of Consciousness is awake, alert, obeys commands, Oriented to person, place, time, situation. Cardiovascular: Reports chest pain, Patient's skin is warm and dry. Rhythm is regular. Respiratory: Reports shortness of breath at rest on exertion cough that is non-productive, Respiratory effort is even, unlabored, Respiratory pattern is regular, symmetrical. GI: No signs and/or symptoms were reported involving the gastrointestinal system. : No signs and/or symptoms were reported regarding the genitourinary system. EENT: No signs and/or symptoms were reported regarding the EENT system. Derm: Skin is pink, warm \T\ dry. Musculoskeletal: No signs and/or symptoms reported regarding the musculoskeletal system. 18:37 Reassessment: Patient appears in no apparent distress at this time. Patient and/or hb family updated on plan of care and expected duration. Pain level reassessed. Patient is alert, oriented x 3, equal unlabored respirations, skin warm/dry/pink. Vital Signs: 17:11 BP 176 / 66; Pulse 76; Resp 18; Temp 98(O); Pulse Ox 100% on R/A; Weight 53.98 kg; tl4 Height 5 ft. 1 in. ; Pain 6/10; 18:37 BP 169 / 63; Pulse 92; Resp 17; Pulse Ox 96% on R/A; hb 19:30 BP 182 / 64; Pulse 85; Resp 17; Pulse Ox 100% ; cp4 20:30 BP 196 / 74; Pulse 84; Resp 18; Pulse Ox 99% ; cp4 17:11 Body Mass Index 22.48 (53.98 kg, 154.94 cm) tl4 17:11 Pain Scale: Adult tl4 ED Course: 16:55 Patient arrived in ED. mr 16:57 Rishi Patino MD is Attending Physician. rn 17:11 EKG done, by ED staff, reviewed by Rishi Patino MD. tl4 17:11 Patient has correct armband on for positive identification. Placed in gown. Bed in low hb position. Call light in reach. Provided Education on: use of call light. Client placed on continuous cardiac and pulse oximetry monitoring. NIBP monitoring applied. athletic monitor on. Pulse ox on. NIBP on. 17:13 Triage completed. tl4 17:14 Arm band placed on right wrist. tl4 17:21 Patient maintains SpO2 saturation greater than 95% on room air. hb 17:30 Basic Metabolic Panel Sent. hb 17:30 CBC with Diff Sent. hb 17:30 NT PRO-BNP Sent. hb 17:30 Troponin HS Sent. hb 17:30 Initial lab(s) drawn, by nj, sent to lab. Inserted saline lock: 22 gauge in right hb forearm, using aseptic technique. Blood collected. Flushed with 10 mL NS. 18:08 XRAY Chest (1 view) In Process Unspecified. EDMS 18:45 Jimmy Jane MD is Hospitalizing Provider. rn 18:57 Chanel Del Valle, RAUL is Primary Nurse. hb 19:59 No provider procedures requiring assistance completed. Patient admitted, IV remains in cp4 place. Administered Medications: 19:13 Drug: Aspirin PO Chewable Tablet 324 mg PO once; 81 mg tablets x 4 Route: PO; ld1 20:31 Follow up: Response: No adverse reaction cp4 Medication: 17:10 VIS not applicable for this client. Outcome: 18:46 Decision to Hospitalize by Provider. rn 20:54 Admitted to Med/surg accompanied by tech, via wheelchair, with chart, cp4 20:54 Condition: stable 20:54 Instructed on the need for admit, 20:55 Patient left the ED. cp4 Signatures: Dispatcher [employer] EDAL MckeonKarolina valenzuela, Reg Reg mr CareyRishi MD MD rn Baxter, Heather, RN RN Emmy Beckman RN RN Milagros Mccormick cp4 Caleb Denson RN RN tl4
--- NOTE | 2024-06-10 18:46 | EDPHYS ---
Physician Documentation [facility] Name: Jesi Lee Age: 78 yrs Sex: Female : 1945 Arrival Date: 06/10/2024 Time: 16:53 Bed 6 Private MD: ED Physician Rishi Patino HPI: 06/10 17:10 This 78 yrs old Female presents to ER via Unassigned with complaints of Chest rn Pain, Breathing Difficulty. 17:10 The patient or guardian reports chest pain that is located primarily in the substernal rn area. Onset: 1 hour(s) ago. The pain does not radiate. Associated signs and symptoms: Pertinent positives: cough, shortness of breath, Pertinent negatives: diaphoresis, syncope. The chest pain is described as a heaviness, squeezing. Duration: The patient or guardian reports a single episode, that is still ongoing. Modifying factors: The symptoms are alleviated by nothing. the symptoms are aggravated by breathing, cough, deep breath. Severity of pain: At its worst the pain was moderate in the emergency department the pain is unchanged. The patient has not experienced similar symptoms in the past. The patient has not recently seen a physician. Pt reports substernal chest pain and sob. Began 1 hour prior to arrival. No fever. + dry cough. No abd pain. Happened while working in garden. . Historical: - Allergies: 17:09 Cipro; hb 17:09 minoxidil (bulk); hb - PMHx: 17:09 Atrial fibrillation; Diabetes; Diverticulitis; Hypertension; ruptured bowel; hb - PSHx: 17:09 bowel resection with colostomy and reversal; hysterectomy; hb - Immunization history:: Adult Immunizations up to date. - Infectious Disease History:: Denies. - Family history:: not pertinent. - Hospitalizations: : No recent hospitalization is reported. - Social history:: Smoking status: Patient denies any tobacco usage or history of. ROS: 17:10 Constitutional: Negative for fever, chills, and weight loss, Cardiovascular: + chest rn tightness Respiratory: + sob and dry cough Abdomen/GI: Negative for abdominal pain, nausea, vomiting, diarrhea, and constipation, MS/Extremity: Negative for injury and deformity, Neuro: Negative for headache, weakness, numbness, tingling, and seizure, Exam: 17:10 Constitutional: This is a well developed, well nourished patient who is awake, alert, rn and in no acute distress. Cardiovascular: Regular rate and rhythm. No pulse deficits. Respiratory: Mild tachypnea, no retractions. Abdomen/GI: Soft, non-tender MS/ Extremity: Pulses equal, no cyanosis. Neuro: Awake and alert, GCS 15 18:06 ECG was reviewed by the Attending Physician. rn Vital Signs: 17:11 BP 176 / 66; Pulse 76; Resp 18; Temp 98(O); Pulse Ox 100% on R/A; Weight 53.98 kg; tl4 Height 5 ft. 1 in. ; Pain 6/10; 18:37 BP 169 / 63; Pulse 92; Resp 17; Pulse Ox 96% on R/A; hb 19:30 BP 182 / 64; Pulse 85; Resp 17; Pulse Ox 100% ; cp4 20:30 BP 196 / 74; Pulse 84; Resp 18; Pulse Ox 99% ; cp4 17:11 Body Mass Index 22.48 (53.98 kg, 154.94 cm) tl4 17:11 Pain Scale: Adult tl4 MDM: 16:57 Patient medically screened. rn 18:44 Differential diagnosis: acute myocardial infarction, acute pericarditis, anxiety, rn coronary artery disease chest wall pain, costochondritis, pneumothorax, stable angina, unstable angina. HEART Score: History: Moderately Suspicious (1), ECG: Normal (0), Age: > or = 65 years (2), Risk Factors: 1 or 2 risk factors (1), Troponin: < or = 1 x Normal Limit (0), Total Score = 4. Data reviewed: vital signs, nurses notes, lab test result(s), EKG, radiologic studies, plain films. 18:44 The patient was given aspirin in the Emergency Department. Consideration of returned materials inspector/Observation Patient was admitted/placed on observation. Escalation of care including admission/observation considered. Independent interpretation of the following test(s) in the Emergency Department EKG: See my EKG interpretation above X-Ray: My interpretation is Chest x-ray images negative for pneumonia or pneumothorax. Care significantly affected by the following chronic conditions: Diabetes, Hypertension. Counseling: I had a detailed discussion with the patient and/or guardian regarding the historical points, exam findings, and any diagnostic results supporting the discharge/admit diagnosis, lab results, radiology results, the need for further work-up and treatment in the hospital. 06/10 17:06 Order name: Basic Metabolic Panel; Complete Time: 17:56 rn 06/10 17:06 Order name: CBC with Diff; Complete Time: 17:56 rn 06/10 17:06 Order name: NT PRO-BNP; Complete Time: 17:56 rn 06/10 17:06 Order name: Troponin HS; Complete Time: 17:56 rn 06/10 19:19 Order name: Urinalysis w/ reflexes EDMS 06/10 19:19 Order name: CBC with Automated Diff EDMS 06/10 19:19 Order name: CBC with Automated Diff EDMS 06/10 19:19 Order name: Comprehensive Metabolic Panel EDMS 06/10 19:19 Order name: Comprehensive Metabolic Panel EDMS 06/10 19:19 Order name: Lipid Profile EDMS 06/10 19:19 Order name: Lipid Profile EDMS 06/10 19:19 Order name: Troponin High Sensitivity EDMS 06/10 19:19 Order name: Troponin High Sensitivity EDMS 06/10 19:19 Order name: Troponin High Sensitivity EDMS 06/10 19:19 Order name: Troponin High Sensitivity EDMS 06/10 19:20 Order name: Hemoglobin A1c EDMS 06/10 17:06 Order name: XRAY Chest (1 view); Complete Time: 18:29 rn 06/10 19:20 Order name: Echo with Doppler EDMS 06/10 20:06 Order name: RAD EDMS 06/10 19:19 Order name: EKG Electrocardiogram EDMS 06/10 19:19 Order name: EKG Electrocardiogram EDMS 06/10 17:06 Order name: Cardiac monitoring; Complete Time: 17:10 rn 06/10 17:06 Order name: EKG - Nurse/Tech; Complete Time: 17:10 rn 06/10 17:06 Order name: IV Saline Lock; Complete Time: 17:30 rn 06/10 17:06 Order name: Labs collected and sent; Complete Time: 17:30 rn 06/10 17:06 Order name: O2 Per Protocol; Complete Time: 17:10 rn 06/10 17:06 Order name: O2 Sat Monitoring; Complete Time: 17:11 rn EC:06 Rate is 76 beats/min. Rhythm is regular. QRS [place] is Normal. UT interval is prolonged. rn QRS interval is normal. QT interval is normal. No Q waves. T waves are Normal. No ST changes noted. Clinical impression: 1st degree heart block. Interpreted by me. Reviewed by me. Administered Medications: 19:13 Drug: Aspirin PO Chewable Tablet 324 mg PO once; 81 mg tablets x 4 Route: PO; ld1 20:31 Follow up: Response: No adverse reaction cp4 Disposition Summary: 06/10/24 18:46 Hospitalization Ordered Notes: Hospitalization Status: Observation rn Provider: Jimmy Jane rn Location: Telemetry/MedSurg (observation) rn Condition: Stable rn Problem: new rn Symptoms: have improved rn Bed/Room Type: Standard rn Room Assignment: 208(06/10/24 19:45) cg Diagnosis - Chest pain, unspecified rn Forms: - Medication Reconciliation Form rn - SBAR form rn - Leadership Thank You Letter rn Signatures: Dispatcher [employer] EDMS Rishi Patino MD MD rn Garcia, Cindy, RN RN cg Baxter, Heather, RN RN hb Sims, Lauren, RN RN 1 Milagros Orellana cp4 Corrections: (The following items were deleted from the chart) 17:07 17:07 BASIC METABOLIC PANEL+C.LAB.BRZ ordered. EDMS EDMS 17:07 17:07 CBC+H.LAB.BRZ ordered. EDMS EDMS 17:07 17:07 PROBNP+C.LAB.BRZ ordered. EDMS EDMS 17:07 17:07 Troponin High Sensitivity+C.LAB.BRZ ordered. EDMS EDMS 17:07 17:07 Chest Single View+RAD.RAD.BRZ ordered. EDMS EDMS 19:45 18:46 rn cg
[2024-06-10] MEDS ORDERED: ASPIRIN 81 MG CHEWABLE TABLET ONE (18:48)
[2024-06-10] MEDS ORDERED: NITROGLYCERIN 0.4 MG/TAB SL PRN (19:18)
[2024-06-10] MEDS ORDERED: ALPRAZOLAM 0.25 MG TABLET PO PRN (19:18)
--- NOTE | 2024-06-10 19:31 | P.HP ---
Certification for Inpatient Patient admitted to: Observation Practitioner: I am a practitioner with admitting privileges, knowledge of patient current condition, hospital course, and medical plan of care. Services: Services provided to patient in accordance with Admission requirements found in Title 42 Section 412.3 of the Code of Federal Regulations Patient History Date of Service: 06/11/24 Reason for admission: chest pain History of Present Illness: 78-year-old female with history of hypertension, atrial fibrillation, diabetes, osteoarthritis presents to the ER with 1 day history of chest tightness onset 3pm today. Discomfort described as substernal radiating to her shoulder and left arm. She reports that she was laying down with onset of discomfort. She does follow with a body art technician Dr. Ortega She states that she had a stress test in the past 1 year about 5 months ago. A call was placed to her body art technician and discussed with the on-call team. She denies any palpitations currently. She does report having some shortness of breath. And some dyspnea on exertion. She also reports having some recent loose stools. States her arthritis and weakness has progressed recently. She is using a walker for balance. She denies any fevers, chills, abdominal pain but does report having a dry cough as well as dyspnea. Allergies No Known Allergies Allergy (Verified 08/24/19 13:01) Home Medications: Aspirin [Aspirin EC 81 MG] 81 mg PO DAILY 01/22/24 Atorvastatin Calcium [Lipitor*] 20 mg PO BEDTIME 01/22/24 Gabapentin [Neurontin*] 600 mg PO TID 01/22/24 Na Bicarb Tab [Sodium Bicarb 325 MG Tab*] 650 mg PO BID 01/22/24 Hydrocodone 5/APAP 325 [[place] 5/325*] 1 tab PO Q6HP PRN #30 tab 01/25/24 Apixaban [Eliquis *] 5 mg PO BID 02/06/24 Nifedipine Xl [Procardia Xl*] 30 mg PO BID #60 tab 02/13/24 carvediloL [Coreg*] 25 mg PO BID 02/16/24 Hydralazine [Apresoline*] 50 mg PO TID #90 tab 02/25/24 Hydrocortisone Acetate [Hemmorex-Hc] 30 mg RC BID PRN #30 supp.rect 02/25/24 - Past Medical/Surgical History Diabetic: Yes -: HTN -: Diabetes mellitus type 2, non insulin dependent -: Chronic Hearing loss -: Bowel Resection with Ileostomy bag/reversal -: Chronic hyponatremia -: intermittent atrial fibrillation -: Hysterectomy -: Cholecystectomy -: remington cataract sx -: 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 She is . - Family History Mother -: Hypertension, Diabetes Sister -: Hypertension, Diabetes Dad & Mom -: Hypertension, Diabetes - Social History Alcohol use: No CD- Drugs: No Caffeine use: Yes Physical Examination - Physical Exam General: Alert, In no apparent distress, Oriented x3 HEENT: Atraumatic, Normocephalic Respiratory: Clear to auscultation bilaterally, Normal air movement Cardiovascular: No edema, Normal pulses, Regular rate/rhythm Gastrointestinal: Soft and benign, Non-distended Musculoskeletal: Other (no synovitis, she does have joint tenderness) Integumentary: No rashes Neurological: Normal speech - Studies Laboratory Data (last 24 hrs) 06/10/24 06/10/24 17:27 17:27 WBC 8.20 Hgb 10.3 L Hct 30.6 L Plt Count 238 Sodium 131 L Potassium 3.8 BUN 29 H Creatinine 1.48 H Glucose 138 H Assessment and Plan - Problems (Diagnosis) (1) Chest pain Current Visit: Yes Status: Acute (2) Anemia Current Visit: No Status: Chronic Qualifiers: (3) Atrial fibrillation Current Visit: No Status: Chronic Qualifiers: (4) Diabetes Current Visit: No Status: Chronic (5) Essential hypertension Current Visit: No Status: Chronic - Plan 78-year-old female with history of hypertension, hyperlipidemia, diabetes presents to the emergency room with complaints of left-sided chest pain that radiated to her shoulder and neck. She reports having a stress test in the last 1 year. Chest pain -- Differential include coronary disease, musculoskeletal, pulmonary --She does report some radiation to her shoulder and neck. I suspect a degree of osteoarthritis. She does report increased joint swelling , stiffness and tenderness recently. --Will admit her for observation with telemetry --Continue serial cardiac enzymes, check an echocardiogram --plan discussed with primary body art technician on-call provider --Continue aspirin, statin check a lipid profile and hemoglobin A1c --Consider cardiology consultation pending clinical course Hypertension Atrial fibrillation --Rate stable, blood pressure stable restart home medications Chronic kidney disease --Her serum creatinine is around baseline --Avoid nephrotoxic medications when able to Anemia --May be secondary to chronic kidney disease --May need further workup as outpatient Diarrhea --Monitor --She did report taking medication to help go to bathroom as she was concerned previously of constipation Dyspnea on exertion --Could be multifactorial including anemia --Will check a COVID test, chest x-ray --Denies history of smoking --She may have some dyspnea from her anemia --Could consider noncontrast chest CT --echo ordered Dry cough --As above Osteoarthritis Cervicalgia Neuropathy -- Will check a cervical spine x-ray -- May benefit from workup for inflammatory arthritis DVT: eliquis Discharge Plan: Home - Advance Directives Does patient have a Living Will: No Does patient have a Durable POA for Healthcare: No
--- NOTE | 2024-06-10 20:06 | RAD REPORT ---
EXAM DESCRIPTION: RAD - C Spine Ap/Lat - 06/10/2024 7:55 pm CLINICAL HISTORY: Neck pain FINDINGS: No fracture or dislocation is seen. Anterior plate, screws and bone plugs C4-C7 Osteoporosis Prominent uncovertebral hypertrophy.
[2024-06-10] MEDS: INSULIN REGULAR (HUMAN) 100 UNIT/ML SQ SCH (21:00)
[2024-06-10] MEDS: HYDRALAZINE HCL 20 MG/ML VIAL IV ONE (22:20)
[2024-06-11] MEDS: HYDRALAZINE HCL 20 MG/ML VIAL IV ONE (04:44)
[2024-06-11] MEDS: ACETAMINOPHEN 500 MG TAB PO PRN (04:44)
[2024-06-11 05:27] LABS: Absolute Basophils 0.1 K/uL (0-0.5); Absolute Eosinophils 0.1 K/uL (0-0.5); Absolute Lymphocytes (CBC) 1.7 K/uL (0.7-4.9); Absolute Monocytes 0.6 K/uL (0.1-1.3); Absolute Neutrophil 5.2 K/uL (1.8-8.0); Basophils % 0.8 % (0-1.3); Eosinophils % 1.2 % (0-4.4); Hematocrit 31.2 % (36.0-45.0); Hemoglobin 10.3 g/dL (12.0-15.0); MCH 29.1 pg (27.0-35.0); MCHC 33.1 g/dL (32.0-36.0); MCV 87.8 fL (80-100); MPV 7.3 fL (7.6-11.3); Monocytes % 8.4 % (3.3-12.3); Neutrophils % 67.6 % (41.7-73.7); Platelets 226 thou/uL (152-406); RBC Red Blood Cell Count 3.55 M/uL (3.86-4.86); Red Cell Distribution Width 14.1 % (12.1-15.2)
[2024-06-11] MEDS: carvediloL 25 MG TAB PO SCH (05:40)
[2024-06-11 05:51] LABS: ALT/SGPT 26 U/L (13-56); AST/SGOT 15 U/L (15-37); Albumin 3.2 g/dL (3.4-5.0); Albumin/Globulin Ratio 0.9 (1.1-1.8); Alkaline Phosphatase 62 U/L (45-117); Anion Gap 7.1 mEq/L (5.0-15.0); BUN Blood Urea Nitrogen 26 mg/dL (7-18); Bicarbonate 30 mEq/L (21-32); Bilirubin Total 0.4 mg/dL (0.2-1.0); Globulin 3.4 g/dL (2.3-3.5); Glomerular Filtration Rate 30 ml/min (=/>90); Glucose Level 133 mg/dL (74-106); HDL Cholesterol 82 mg/dL (40-60); LDL Cholesterol, Calculated 6 mg/dL (<130); LDL Cholesterol,Calc NonReport 6; Potassium 4.1 mEq/L (3.5-5.1); Protein, Total 6.6 g/dL (6.4-8.2); Sodium Level 138 mEq/L (136-145); Troponin High Sensitivity 13.3 pg/mL (<58.9)
[2024-06-11 05:58] LABS: C-Reactive Protein < 2.90 mg/L (<3.00)
[2024-06-11 07:46] VITALS: BMI 22.4
[2024-06-11] MEDS: NIFEDIPINE XL 30 MG TABLET PO SCH (08:35)
[2024-06-11] MEDS: HYDRALAZINE HCL 25 MG TABLET PO SCH (08:35)
[2024-06-11] MEDS: GABAPENTIN 300 MG CAP PO SCH (08:35)
[2024-06-11] MEDS: ASPIRIN EC 81 MG TAB PO SCH (08:36)
[2024-06-11] MEDS ORDERED: ASPIRIN EC 81 MG TAB PO SCH (09:00)
[2024-06-11] MEDS ORDERED: APIXABAN 2.5 MG TABLET PO SCH (09:00)
[2024-06-11 11:36] LABS: SARS-CoV-2 Antigen CONTROL BLUE LINE VIS/BG OK; SARS-CoV-2 Antigen Rapid Res Negative (Negative)
--- NOTE | 2024-06-11 13:31 | EKG ---
Test Date: 2024-06-10 Test Time: 17:05:08 Erp Analyst: TL MEASUREMENT RESULTS: Intervals: Rate: 76 UT: 226 QRSD: 88 QT: 400 QTc: 450 [place]: P: UT: 226 QRS: -11 T: 2 INTERPRETIVE STATEMENTS: Sinus rhythm with 1st degree AV block Low voltage QRS Cannot rule out Anterior infarct, age undetermined Abnormal ECG Compared to ECG 04/17/2024 17:11:16 Low QRS voltage now present Myocardial infarct finding now present Electronically Signed On 06-11-24 13:29:07 CDT by Serge Morales
--- NOTE | 2024-06-11 13:50 | ECHO ---
HEIGHT: 5 ft 1 in WEIGHT: 119 lb 0 oz DATE OF STUDY: 06/11/[address]: Jimmy Jane MD 2-DIMENSIONAL: YES M.MODE: YES DOPPLER: YES COLOR FLOW: YES TDS: PORTABLE: YES DEFINITY: BUBBLE STUDY: DIAGNOSIS: CHEST PAIN CARDIAC HISTORY: CATHERIZATION: SURGERY: PROSTHETIC VALVE: PACEMAKER: MEASUREMENTS (cm) DIASTOLIC (NORMALS) SYSTOLIC (NORMALS) IVSd 1.2 (0.6-1.2) LA Diam 3.3 (1.9-4.0) LVEF 60-65% LVIDd 3.6 (3.5-5.7) LVIDs 2.0 (2.0-3.5) %FS 45% LVPWd 1.3 (0.6-1.2) Ao Diam 3.0 (2.0-3.7) 2 DIMENSIONAL ASSESSMENT: RIGHT ATRIUM: NORMAL LEFT ATRIUM: NORMAL RIGHT VENTRICLE: NORMAL LEFT VENTRICLE: NORMAL TRICUSPID VALVE: TRACE TRICUSPID REGURGITATION MITRAL VALVE: TRACE MITRAL REGURGITATION PULMONIC VALVE: MILD PULMONIC INSUFFICIENCY AORTIC VALVE: MILD AORTIC INSUFFICIENCY PERICARDIAL EFFUSION: NONE AORTIC ROOT: NORMAL LEFT VENTRICULAR WALL MOTION: NORMAL DOPPLER/COLOR FLOW: SEE BELOW COMMENTS: 1. NORMAL LEFT VENTRICULAR EJECTION FRACTION 60-65% WITH NORMAL WALL MOTION 2. GRADE I DIASTOLIC DYSFUNCTION 3. TRACE MITRAL REGURGITATION/ TRICUSPID REGURGITATION TECHNOLOGIST: MELODY REESE
[2024-06-11] MEDS: NA CHLORIDE 0.9% 500 ML ONE (14:40)
--- NOTE | 2024-06-11 15:53 | P.PN ---
Date of Service: 06/11/24 Subjective: No further episodes of chest pain overnight Breathing has improved No acute events overnight ROS: 10 point ROS as noted above, otherwise negative Physical exam GEN: Alert, oriented, NAD HEENT: Normal conjunctiva, sclera anicteric CV: Regular rate and rhythm, no edema Pulm: Nonlabored respirations on room air ABD: Soft, nontender, nondistended MSK: No joint tenderness Integumentary: No rashes Neuro: Normal speech, normal affect Vitals reviewed Assessment: Chest pain rule out ACS Atrial fibrillation on chronic coagulation CKD 3 Hypertension Normocytic anemia Plan: Chest pain rule out ACS Seen by cardiology Patient has had positive troponins in the past Cardiology plans for coronary angiogram today Await results from coronary angiogram Atrial fibrillation on chronic coagulation Resume Eliquis when cleared by cardiology Continue home medications Monitor on telemetry CKD 3 Will give IV fluids overnight given contrast exposure Consider nephrology consult if there is worsening tomorrow Hypertension Continue home medications Normocytic anemia Likely anemia of chronic disease monitor H&H VTE: Resume Eliquis likely tomorrow Code: Full Dispo: 1 to 2 days Time Spent Managing Pts Care (In Minutes): 35
[2024-06-11] MEDS ORDERED: LIDOCAINE 1% 20 ML MDV ONE (16:04)
[2024-06-11] MEDS ORDERED: HEPARIN 5000 UNIT/ML 1 ML VIAL ONE (16:04)
[2024-06-11] MEDS ORDERED: TICAGRELOR 90 MG TABLET PO ONE (16:04)
[2024-06-11] MEDS ORDERED: VERAPAMIL HCL 10 MG/4 ML VIAL IV ONE (16:04)
[2024-06-11] MEDS ORDERED: ATROPINE SULF 1 MG/10 ML SYR IV ONE (16:04)
[2024-06-11] MEDS ORDERED: HEPA 1000U/500MLS 2,000 UNIT/1,000 ML BAG IV ONE (16:04)
[2024-06-11] MEDS ORDERED: MIDAZOLAM HCL 2 MG/2 ML INJ ONE (16:04)
[2024-06-11] MEDS ORDERED: HEPARIN 10,000 UNIT/10 ML VIAL IV ONE (16:05)
[2024-06-11] MEDS ORDERED: CLOPIDOGREL 75 MG TABLET ONE (16:05)
[2024-06-11] MEDS ORDERED: ASPIRIN 325 MG TAB ONE (16:05)
[2024-06-11] MEDS ORDERED: FENTANYL CITR 100 MCG/2 ML ONE (16:06)
[2024-06-11] MEDS ORDERED: REGADENOSON 0.4 MG/5 ML SYR IV ONE (16:51)
[2024-06-11 17:54] VITALS: O2SAT 100
[2024-06-11] MEDS: NA CHLORIDE 0.9% 1,000 ML IV SCH (18:44)
--- NOTE | 2024-06-11 20:19 | CON ---
Date of Consultation: 06/11/2024 Reason For Consultation: Chest pain. History Of Present Illness: This is a 78-year-old female, history of atrial fibrillation, diabetes, hypertension, and dyslipidemia, presented with chest pain, pressure like, radiates to the shoulder an d left upper extremity. She sees a cap sewer elsewhere and last time she was in the hospital, she had a chest pain with elevated troponin; however, she refused to go for a coronary angiogram, but to day she is agreeing to it because the chest pain is happening on and off. Denies having any nausea, vomiting, diarrhea. No diaphoresis. Past Medical History: As outlined above in the HPI. Medications: Refer reconciliation sheet for detailed list. Allergies: NO KNOWN DRUG ALLERGIES. Family History: No premature coronary artery disease or cancer. Social History: Does not smoke or drink. Does not use any drugs. Review of Systems: All systems reviewed and they were negative except as mentioned in the HPI. Physical Examination: Vital Signs: Reviewed. Head and Neck: Pupils are equal, reactive to light. Intact eye movements. No JVD. No cervical lym phadenopathy. Neck is supple. Thyroid is not enlarged. Lungs: Clear to auscultation bilaterally. No rhonchi, wheezing, or crackles. No accessory muscle u se. Heart: Regular. No extra sounds. Abdomen: Soft, nontender. Bowel sounds positive. No organomegaly. No masses or hernia. No rigidi ty or rebound. Extremities: No edema, clubbing, cyanosis. Intact pulses. Skin: No rash. No nodule. Neuro: Alert, awake, oriented x3. No acute focal deficits appreciated. Investigations: BUN 27, creatinine is 1.72, which is up from yesterday was 1.48. Troponin is negati ve and hemoglobin is 10.3. Assessment And Recommendation: 1.Chest pain suggestive of unstable angina as she did have in the past. Also elevated troponin with chest pain. No coronary angiogram was done and she is n.p.o. Plan for coronary angiogram. We will use small amount of contrast due to the chronic kidney disease and to identify the coronary anatomy and plan accordingly. I discussed with her in details and she agreed to the procedure. 2.Atrial fibrillation, it is controlled. Continue current management. 3.Dyslipidemia. Continue statin. 4.Hypertension. Blood pressure is controlled. Continue current therapy. SR/MODL Voice ID: [id number] Report ID: [id number]
[2024-06-11] MEDS: APIXABAN 2.5 MG TABLET PO SCH (21:00)
[2024-06-11] MEDS: ATORVASTATIN 20 MG TAB PO SCH (21:25)
--- NOTE | 2024-06-12 00:19 | OP ---
Date of Procedure: 06/11/2024 Surgeon: MORRIS FORD Procedure Performed: 1.Selective coronary angiogram. 2.Left heart catheterization. 3.FFR mid LAD, which was not significant at 0.94. Indication: Unstable angina. Access: Right common femoral artery 6-Grenadian, closed with 6-Grenadian Angio-Seal. Complications: None. Bleeding: Less than 50 mL. Anesthesia: Total sedation time is 1 hour. Description Of Procedure: After risks, benefits, and alternatives were explained, the patient agreed to procedure and signed informed consent. The patient was brought into the cardiac catheterization laboratory, prepped and draped in usual sterile fashion. Then, I accessed the right common femoral a rtery using micropuncture kit, ultrasound guidance, and fluoroscopy, placed a 6-Grenadian [place] sheat h and took a 6-Grenadian JL4 into aortic root over a J-wire, engaged the left main, took standard views, and exchanged for 6-Grenadian JR4 catheter and engaged RCA and took standard views. Catheter was pushe d over the wire into the LV. Measured the LVEDP, and pullback did not record any gradient. Then usi ng the JR4 catheter itself, performed FFR. We gave systemic heparin to assure ACT level above 250 an d then took the FFR wire into the aortic root and pressures were equalized and then I engaged the lef t main. Send the wire through the LAD and placed it distally, performed FFR using Lexiscan and it wa s negative at 0.94 and pulled the wire back. There was no drift and fine angiogram was satisfactory and removed the catheter and the sheath, and 6-Grenadian Angio-Seal was used for closure with good hemos tasis. Findings: 1.Left main; large and normal. 2.LAD; proximal segment is normal. Mid segment has long diffuse heavily calcified 50% stenosis. FF R is negative at 0.94. At mid and distal, the LAD becomes very large and open. Diagonal branches ar e normal. 3.Left circumflex is moderate to large size vessel and is normal. Normal OM branches. 4.RCA, very large and dominant, proximal 20%. The rest of it is normal. 5.LVEDP is normal at 6 mmHg. 6.FFR mid LAD was 0.94, which is insignificant. Conclusion: Moderate mid LAD stenosis, heavily calcified, negative FFR. Plan: Medical management. SR/MODL Voice ID: [id number] Report ID: [id number]
[2024-06-12 04:40] LABS: Hematocrit 30.2 % (36.0-45.0); Hemoglobin 10.1 g/dL (12.0-15.0); MCH 29.4 pg (27.0-35.0); MCHC 33.5 g/dL (32.0-36.0); MCV 87.6 fL (80-100); MPV 7.1 fL (7.6-11.3); Platelets 231 thou/uL (152-406); RBC Red Blood Cell Count 3.44 M/uL (3.86-4.86); Red Cell Distribution Width 14.5 % (12.1-15.2)
[2024-06-12 04:53] LABS: Anion Gap 10.4 mEq/L (5.0-15.0); Potassium 3.4 mEq/L (3.5-5.1)
[2024-06-12 06:49] LABS: Specific Gravity > 1.030 (1.005-1.030); Sqamous Epithelial <5 /HPF (None Seen); Transitional Epithelial <5 /HPF (None Seen); Urine Bacteria <20 /HPF (<20); Urine Bilirubin NEGATIVE (Negative); Urine Blood Negative (Negative); Urine Clarity Clear (Clear); Urine Color Light-Yellow (Yellow); Urine Culture Reflex Order NOT NEEDED; Urine Glucose NEGATIVE (Negative); Urine Ketones NEGATIVE (Negative); Urine Microscopic Reflex YN ORDER UMIC; Urine Nitrite NEGATIVE (Negative); Urine Protein 1+ (Negative); Urine RBC <5 /HPF (None Seen); Urine Urobilinogen Normal (Normal); Urine WBC <5 /HPF (<5); Urine pH 5.5 (5.0-7.0)
[2024-06-12] MEDS: NA CHLORIDE 0.9% 1,000 ML IV SCH ×2 (08:10→12:32)
--- NOTE | 2024-06-12 11:15 | P.PN ---
Date of Service: 06/12/24 Subjective: Status post heart cath 06/11 Nonobstructive CAD No acute events overnight Renal function worse this morning ROS: 10 point ROS as noted above, otherwise negative Physical exam GEN: Alert, oriented, NAD HEENT: Normal conjunctiva, sclera anicteric CV: Regular rate and rhythm, no edema Pulm: Nonlabored respirations on room air ABD: Soft, nontender, nondistended MSK: No joint tenderness Integumentary: No rashes Neuro: Normal speech, normal affect Vitals reviewed Assessment: Chest pain rule out ACS Atrial fibrillation on chronic coagulation CKD 3 Hypertension Normocytic anemia Plan: Chest pain rule out ACS Seen by cardiology Patient has had positive troponins in the past Coronary angiogram 06/11 with nonobstructive CAD-no interventions Atrial fibrillation on chronic coagulation Resume Eliquis Continue home medications Monitor on telemetry Acute kidney injury superimposed on CKD 3 JOSE with recent contrast exposure Nephrology consulted Started on IV fluids Recheck chemistry in the morning Hypertension Continue home medications Normocytic anemia Likely anemia of chronic disease monitor H&H VTE: Resume Eliquis Code: Full Dispo: 1 to 2 days Time Spent Managing Pts Care (In Minutes): 35
[2024-06-12] MEDS: KCL 20 MEQ/100 mL IVPB 20 MEQ/100 ML BAG IV SCH (12:29)
--- NOTE | 2024-06-12 16:03 | CON ---
Date of Consultation: 06/12/2024 Reason For Consultation: Elevated BUN and creatinine. History Of Present Illness: This is a pleasant 78-year-old female, well known to me from the office with significant past medical history of chronic kidney disease secondary to diabetes nephropathy, last seen back in April 2024. Baseline creatinine 1.6, GFR of 33. Used to be before 1.3 with GFR of 40. The patient came to the hospital complaining from chest tightness and shortness of breath. The patient will undergo cardiac cath today. The patient upon arrival to the hospital found to have elevation in creatinine 1.8 with GFR 28. Past Medical History: Includes: 1. Hypertension. 2. Diabetes, complicated with neuropathy. 3. Chronic kidney disease, baseline creatinine 1.3, GFR 40, secondary to diabetes nephropathy. 4. Hearing loss. 5. Hypertension. 6. CAD. Past Surgical History: Includes: 1. Cardiac cath. 2. Ileostomy. 3. Hysterectomy. 4. Cholecystectomy. 5. Cataract. Family History: Positive for diabetes, hypertension, and CAD. Social History: Denied smoking, denied drinking, denied drugs abuse. Review of Systems: Head and Neck: No red eye. No ear pain. GI: No nausea, no vomiting. : No polyuria, no dysuria, no hematuria. 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 Respiratory: Has shortness of breath. Cardiovascular: Has chest pain. Endocrine: No polydipsia. Skin: No rash. Neuro: Has neuropathy. Musculoskeletal: No joint pain. Physical Examination: Vital Signs: When I saw the patient, blood pressure 160/88, pulse of 64, afebrile. Chest: Clear to auscultation. Heart: S1, S2. Systolic murmur. Abdomen: Soft, nontender. Extremities: No edema. Neurologic: Alert, oriented, no focality. Laboratory Data: Sodium 140, potassium 3.4, bicarb 25, BUN 33, creatinine 1.8. Calcium 8.2. Hemoglobin 10.1, WBC 10.2. Current Medications: The patient on include aspirin, Eliquis, atorvastatin, hydralazine, nifedipine, alprazolam, gabapentin, normal saline. Assessment And Plan: 1. Acute kidney injury secondary to cardiorenal superimposed with contrast nonoliguric. Given the exposure to contrast, I am going to watch the patient for another 24-48 hours. We will hold on adding any NETTIE inhibitor or ARB. The patient elevation in creatinine happened even before the cardiac cath and contrast exposure. I am going to go ahead and send for renal ultrasound and workup and we will follow up. Hold on the diuresis for the time being. 2. Hypertension, controlled, optimal, with the presence of acute kidney injury. Hold any NETTIE inhibitor or ARB. Agree with carvedilol, nifedipine. We will follow up with Cardiology. 3. [id number] ID, unstable angina, as by Cardiology, status post catheterization. 4. Hypokalemia, we will supplement. Thank you Dr. Patino for allowing us to participate in the care of your patient. Time spent examining the patient [id number], reviewing data, lab and radiology, placing order, discussing the case with the patient, discussing the case with the [employer] team member including hospitalist and nursing staff, more than 75 minutes. ROGELIO Voice ID: [id number] Report ID: [id number] BRIAN
--- NOTE | 2024-06-12 17:20 | RAD REPORT ---
EXAM DESCRIPTION: US - Renal Ultrasound-Complete - 06/12/2024 4:48 pm CLINICAL HISTORY: JOSE COMPARISON: <Comparisons> FINDINGS: Increased echogenicity of both kidneys noted. The right kidney measures 10.1 x 4.2 x 4.1 cm. No hydronephrosis, focal mass or perinephric fluid. 12 mm cyst right kidney. The left kidney measures 9.5 x 4.7 x 4.6 cm. No hydronephrosis, focal mass or perinephric fluid. The urinary bladder is incompletely distended without gross abnormality seen. IMPRESSION: Increased echogenicity both kidneys compatible with underlying medical renal disease.
[2024-06-13 05:56] VITALS: TEMP 97.5
[2024-06-13 06:19] LABS: Hemoglobin 10.4 g/dL (12.0-15.0); MCH 29.2 pg (27.0-35.0); MCHC 33.5 g/dL (32.0-36.0); MCV 87.3 fL (80-100); MPV 7.6 fL (7.6-11.3); Platelets 240 thou/uL (152-406); RBC Red Blood Cell Count 3.55 M/uL (3.86-4.86); Red Cell Distribution Width 14.2 % (12.1-15.2)
[2024-06-13 06:22] LABS: Albumin 3.4 g/dL (3.4-5.0); Anion Gap 7.7 mEq/L (5.0-15.0); Magnesium 2.1 mg/dL (1.6-2.4); Phosphorus 2.9 mg/dL (2.5-4.9); Potassium 3.7 mEq/L (3.5-5.1); Uric Acid 6.6 mg/dL (2.6-6.0)
[2024-06-13 06:30] LABS: Thyroid Stimulating Hormone 3.82 uIU/mL (0.358-3.740)
[2024-06-13 09:23] VITALS: BP 168/72
--- NOTE | 2024-06-13 10:14 | P.DS ---
Admission Date: 06/12/24 Discharge Date: 06/13/24 Disposition: ROUTINE DISCHARGE Discharge Condition: GOOD Reason for Admission: chest pain Consultations: Cardiology-Dr. Morales Procedures: [facility] Brief History of Present Illness: 78-year-old female with history of hypertension, atrial fibrillation, diabetes, osteoarthritis presents to the ER with 1 day history of chest tightness onset 3pm today. Discomfort described as substernal radiating to her shoulder and left arm. She reports that she was laying down with onset of discomfort. She does follow with a butadiene converter helper Dr. Ortega She states that she had a stress test in the past 1 year about 5 months ago. A call was placed to her butadiene converter helper and discussed with the on-call team. She denies any palpitations currently. She does report having some shortness of breath. And some dyspnea on exertion. She also reports having some recent loose stools. States her arthritis and weakness has progressed recently. She is using a walker for balance. She denies any fevers, chills, abdominal pain but does report having a dry cough as well as dyspnea. Hospital Course: Assessment: Chest pain rule out ACS Atrial fibrillation on chronic coagulation CKD 3 Hypertension Normocytic anemia Patient was admitted to the hospital for chest pain. She underwent coronary angiogram on 06/[address] Morales which showed moderate mid LAD stenosis, heavily calcified, negative FFR. Plan is for medical management. Patient has remained chest pain-free since admission and has been stable. She has a history of CKD and on the day after catheter creatinine was elevated over her baseline at 1.81. Given her JOSE with recent contrast exposure nephrology was consulted and she was given IV fluids overnight, her creatinine has improved to 1.41 today. She stable for discharge at this time. Discussed recommendation for close follow-up early next week in 2 to 3 days for repeat BMP with nephrologistDr. Triana. Please also follow-up with your primary care doctor and butadiene converter helper. Continue home medications as previously prescribed. Vital Signs/Physical Exam: Temp Pulse Resp BP Pulse Ox 97.5 F 71 16 168/72 H 100 06/13/24 04:00 06/13/24 09:22 06/13/24 04:00 06/13/24 09:22 06/13/24 04:00 General: Alert, In no apparent distress, Oriented x3 HEENT: Atraumatic, PERRLA, EOMI Neck: Supple, JVD not distended Respiratory: Clear to auscultation bilaterally, Normal air movement Cardiovascular: Regular rate/rhythm, Normal S1 S2 Gastrointestinal: Normal bowel sounds, No tenderness Musculoskeletal: No tenderness Integumentary: No rashes Neurological: Normal speech, Normal tone, Normal affect Laboratory Data at Discharge: WBC 9.20 thou/uL (4.3-10.9) 06/13/24 05:06 Hgb 10.4 g/dL (12.0-15.0) L 06/13/24 05:06 Hct 31.0 % (36.0-45.0) L 06/13/24 05:06 Plt Count 240 thou/uL (152-406) 06/13/24 05:06 Sodium 141 mEq/L (136-145) 06/13/24 05:06 Potassium 3.7 mEq/L (3.5-5.1) 06/13/24 05:06 BUN 22 mg/dL (7-18) H 06/13/24 05:06 Creatinine 1.41 mg/dL (0.55-1.02) H 06/13/24 05:06 Glucose 143 mg/dL (74-106) H 06/13/24 05:06 Uric Acid 6.6 mg/dL (2.6-6.0) H 06/13/24 05:06 Phosphorus 2.9 mg/dL (2.5-4.9) 06/13/24 05:06 Magnesium 2.1 mg/dL (1.6-2.4) 06/13/24 05:06 Total Bilirubin 0.4 mg/dL (0.2-1.0) 06/11/24 05:03 AST 15 U/L (15-37) 06/11/24 05:03 ALT 26 U/L (13-56) 06/11/24 05:03 Alkaline Phosphatase 62 U/L (45-117) 06/11/24 05:03 Triglycerides 44 mg/dL (<150) 06/11/24 05:03 Cholesterol 97 mg/dL (<200) 06/11/24 05:03 HDL Cholesterol 82 mg/dL (40-60) H 06/11/24 05:03 Cholesterol/HDL Ratio 1.18 06/11/24 05:03 Home Medications: Aspirin [Aspirin EC 81 MG] 81 mg PO DAILY 01/22/24 Atorvastatin Calcium [Lipitor*] 20 mg PO BEDTIME 01/22/24 Gabapentin [Neurontin*] 600 mg PO TID 01/22/24 Na Bicarb Tab [Sodium Bicarb 325 MG Tab*] 650 mg PO BID 01/22/24 Hydrocodone 5/APAP 325 [[place] 5/325*] 1 tab PO Q6HP PRN #30 tab 01/25/24 Nifedipine Xl [Procardia Xl*] 30 mg PO BID #60 tab 02/13/24 carvediloL [Coreg*] 25 mg PO BID 02/16/24 Hydralazine [Apresoline*] 50 mg PO TID #90 tab 02/25/24 Hydrocortisone Acetate [Hemmorex-Hc] 30 mg RC BID PRN #30 supp.rect 02/25/24 Apixaban [Eliquis] 2.5 mg PO BID 06/11/24 Physician Discharge Instructions: Patient was admitted to the hospital for chest pain. She underwent coronary angiogram on 06/[address] Morales which showed moderate mid LAD stenosis, heavily calcified, negative FFR. Plan is for medical management. Patient has remained chest pain-free since admission and has been stable. She has a history of CKD and on the day after catheter creatinine was elevated over her baseline at 1.81. Given her JOSE with recent contrast exposure nephrology was consulted and she was given IV fluids overnight, her creatinine has improved to 1.41 today. She stable for discharge at this time. Discussed recommendation for close follow-up early next week in 2 to 3 days for repeat BMP with nephrologistDr. Triana. Please also follow-up with your primary care doctor and butadiene converter helper. Continue home medications as previously prescribed. Diet: AHA Activity: Ad aleksander Followup: Le Triana MD [ACTIVE - CAN ADMIT] - 2-3 Days Serge Morales MD [ACTIVE - CAN ADMIT] - 1-2 Weeks Mary Jane Mejia MD [Primary Care Provider] - 1-2 Weeks Time spent managing pt's care (in minutes): 35
== END 2024-06-13 10:05 | disposition home or self-care (01) | DRG 281 ==
LOC: ER 16:53 → ERHOLD 19:08 → 2ND 20:18 → OBSVTOIN 06-12 07:39
PROVIDERS: ADMIT Internal Medicine; ATTEND Hospitalist
PROC: 4A023N7 Measurement of Cardiac Sampling and Pressure, Left Heart, Percutaneous Approach (ICD-10-PCS; principal; 2024-06-11)
PROC: B2111ZZ Fluoroscopy of Multiple Coronary Arteries using Low Osmolar Contrast (ICD-10-PCS; 2024-06-11)
DX: I21.4 Non-ST elevation (NSTEMI) myocardial infarction (principal); N17.9 Acute kidney failure, unspecified; I48.91 Unspecified atrial fibrillation; M19.90 Unspecified osteoarthritis, unspecified site; I12.9 Hypertensive chronic kidney disease with stage 1 through stage 4 chronic kidney disease, or unspecified chronic kidney disease; N18.30 Chronic kidney disease, stage 3 unspecified; E11.22 Type 2 diabetes mellitus with diabetic chronic kidney disease; E11.42 Type 2 diabetes mellitus with diabetic polyneuropathy; D63.1 Anemia in chronic kidney disease; D50.9 Iron deficiency anemia, unspecified; E87.6 Hypokalemia; H91.90 Unspecified hearing loss, unspecified ear; M54.2 Cervicalgia; I25.110 Atherosclerotic heart disease of native coronary artery with unstable angina pectoris; Z93.3 Colostomy status; Z88.1 Allergy status to other antibiotic agents; Z79.82 Long term (current) use of aspirin; Z11.52 Encounter for screening for COVID-19; Z79.01 Long term (current) use of anticoagulants; Z79.02 Long term (current) use of antithrombotics/antiplatelets; Z90.49 Acquired absence of other specified parts of digestive tract; Z79.899 Other long term (current) drug therapy; Z90.710 Acquired absence of both cervix and uterus
CPT/HCPCS: 36415; 71045; 72040; 76770; 76937; 80048; 80053; 80061; 80069; 81001; 82550; 82947; 83036; 83735; 83880; 83970; 84439; 84443; 84484; 84550; 85025; 85027; 85347; 86140; 87804; 87811; 93005; 93306; 93458; 93571; 99152; 99285; C1760; C1769; C1893; G0269; G0378; J0360; J0461; J1644; J2001; J2250; J2785; J3010; J3480; J7030; J7040; Q9966

== ENCOUNTER 2024-10-10 09:57 | Emergency (ER) | payer MEDICARE ==
[2024-10-10] MEDS ORDERED: NA CHLORIDE 0.9% 500 ML ONE (10:12)
[2024-10-10 10:45] LABS: Absolute Basophils 0.1 K/uL (0-0.5); Absolute Eosinophils 0.1 K/uL (0-0.5); Absolute Lymphocytes (CBC) 1.2 K/uL (0.7-4.9); Absolute Monocytes 0.4 K/uL (0.1-1.3); Absolute Neutrophil 5.2 K/uL (1.8-8.0); Basophils % 1.2 % (0-1.3); Eosinophils % 0.7 % (0-4.4); Hematocrit 32.7 % (36.0-45.0); Hemoglobin 10.3 g/dL (12.0-15.0); Lymphocytes % 16.9 % (15.3-44.8); MCH 27.1 pg (27.0-35.0); MCHC 31.6 g/dL (32.0-36.0); MCV 85.8 fL (80-100); MPV 7.8 fL (7.6-11.3); Monocytes % 5.1 % (3.3-12.3); Neutrophils % 76.1 % (41.7-73.7); Platelets 211 thou/uL (152-406); RBC Red Blood Cell Count 3.81 M/uL (3.86-4.86); Red Cell Distribution Width 15.1 % (12.1-15.2)
[2024-10-10 11:03] LABS: Albumin 3.3 g/dL (3.4-5.0); Bilirubin Total 0.3 mg/dL (0.2-1.0); Globulin 3.2 g/dL (2.3-3.5); Protein, Total 6.5 g/dL (6.4-8.2)
[2024-10-10 11:54] LABS: Specific Gravity < 1.005 (1.005-1.030); Sqamous Epithelial <5 /HPF (None Seen); Urine Bacteria <20 /HPF (<20); Urine Bilirubin NEGATIVE (Negative); Urine Blood Negative (Negative); Urine Clarity Clear (Clear); Urine Color Colorless (Yellow); Urine Culture Reflex Order NOT NEEDED; Urine Glucose NEGATIVE (Negative); Urine Ketones NEGATIVE (Negative); Urine Microscopic Reflex YN ORDER UMIC; Urine Nitrite NEGATIVE (Negative); Urine Protein TRACE (Negative); Urine RBC <5 /HPF (None Seen); Urine Urobilinogen Normal (Normal); Urine WBC <5 /HPF (<5); Urine pH 7.5 (5.0-7.0)
--- NOTE | 2024-10-10 11:57 | ER ---
Nurse's Notes [facility] Name: Jesi Lee Age: 78 yrs Sex: Female : 1945 Arrival Date: 10/10/2024 Time: 09:57 Bed 14 Private MD: Diagnosis: Hyperglycemia, unspecified Presentation: 10/10 10:42 Chief complaint: Patient states: blood sugar was greater than 300. Coronavirus screen: ko1 At this time, the client does not indicate any symptoms associated with coronavirus-19. Ebola Screen: No symptoms or risks identified at this time. Initial Sepsis Screen: Does the patient meet any 2 criteria? No. Patient's initial sepsis screen is negative. Does the patient have a suspected source of infection? No. Patient's initial sepsis screen is negative. Risk Assessment: Do you want to hurt yourself or someone else? Patient reports no desire to harm self or others. Onset of symptoms was October 10, 2024. 10:42 Method Of Arrival: Ambulatory ko1 10:42 Acuity: RENETTA 3 ko1 Triage Assessment: 10:43 General: Appears in no apparent distress. Behavior is calm, cooperative, appropriate ko1 for age. Pain: Denies pain. EENT: No deficits noted. Neuro: No deficits noted. Cardiovascular: No deficits noted. Respiratory: No deficits noted. GI: No deficits noted. : No deficits noted. Derm: No deficits noted. Musculoskeletal: No deficits noted. Historical: - Allergies: 10:43 Cipro; ko1 10:43 minoxidil (bulk); ko1 - Home Meds: 10:43 glipizide Oral [Active]; ko1 - PMHx: 10:43 Atrial fibrillation; Diabetes; Diverticulitis; Hypertension; ruptured bowel; ko1 - PSHx: 10:43 bowel resection with colostomy and reversal; hysterectomy; ko1 - Immunization history:: Adult Immunizations up to date. - Infectious Disease History:: Denies. - Social history:: Smoking status: Patient denies any tobacco usage or history of. Screenin:48 [facility] ED Fall Risk Assessment (Adult) History of falling in the last 3 months, ko1 including since admission No falls in past 3 months (0 pts) Confusion or Disorientation No (0 pts) Intoxicated or Sedated No (0 pts) Impaired Gait No (0 pts) Mobility Assist Device Used Yes (1 pt) Altered Elimination No (0 pt) Score/Fall Risk Level 0 - 2 = Low Risk Oriented to surroundings, Maintained a safe environment, Educated pt \T\ family on fall prevention, incl call for assistance when getting out of bed, Assessed \T\ reinforced patient's understanding of fall precautions, Hourly rounding (assess needs \T\ fall precautionary measures) done. Abuse screen: Denies threats or abuse. Denies injuries from another. Nutritional screening: No deficits noted. Tuberculosis screening: No symptoms or risk factors identified. Assessment: 10:48 Reassessment: see triage note. ko1 Vital Signs: 10:42 BP 157 / 62; Pulse 59; Resp 17; Temp 98.1; Pulse Ox 99% on R/A; ko1 11:46 BP 169 / 75; Pulse 64; Resp 15; Pulse Ox 100% ; ko1 ED Course: 09:59 Patient arrived in ED. im 10:00 Julienne Smith FNP-C is PHCP. kb 10:00 Simeon Gavin MD is Attending Physician. kb 10:01 Araceli Aly RN is Primary Nurse. ko1 10:25 No provider procedures requiring assistance completed. Inserted saline lock: 22 gauge ko1 in left antecubital area, using aseptic technique. Blood collected. Flushed with 10 mL NS. 10:25 Initial lab(s) drawn, by me, sent to lab. ko1 10:28 CMP Sent. ko1 10:28 CBC with Diff Sent. ko1 10:43 Triage completed. ko1 10:43 Arm band placed on right wrist. Patient placed in an exam room, on a stretcher, on ko1 pulse oximetry, Patient notified of wait time. 10:48 Patient has correct armband on for positive identification. Allergy band placed. Bed in ko1 low position. Call light in reach. Side rails up X2. Provided Education on: labs, meds. Pulse ox on. NIBP on. Door closed. Noise minimized. Lights dimmed. Warm blanket given. Pillow given. 11:30 Urinalysis w/ reflexes Sent. ko1 12:01 IV discontinued, intact, bleeding controlled, No redness/swelling at site. Pressure ko1 dressing applied. Administered Medications: 10:28 Drug: NS 0.9% IV 500 ml 500 ml IV at 1 bolus once; to be given as a bolus over 30 ko1 minutes Volume: 500 ml; Route: IV; Rate: 1 bolus; Site: left antecubital; 11:15 Follow up: Response: No adverse reaction; IV Status: Completed infusion; IV Intake: ko1 500ml Medication: 10:48 VIS not applicable for this client. ko1 Intake: 11:15 IV: 500ml; Total: 500ml. ko1 Outcome: 11:56 Discharge ordered by MD. whyte 12:01 Discharged to home ambulatory, with family, ko1 12:01 Condition: stable 12:01 Discharge instructions given to patient, family, Instructed on discharge instructions, follow up and referral plans. Demonstrated understanding of instructions, follow-up care, 12:06 Patient left the ED. ko1 Signatures: Julienne Smith FNP-C SURVEY CAD TECHNICIAN-Araceli Cardona, RN RN ko1 Katty Bowman
--- NOTE | 2024-10-10 11:57 | EDPHYS ---
Physician Documentation [facility] Name: Jesi Lee Age: 78 yrs Sex: Female : 1945 Arrival Date: 10/10/2024 Time: 09:57 Bed 14 Private MD: DYLON Physician Simeon Gavin HPI: 10/10 10:08 This 78 yrs old Female presents to ER via Unassigned with complaints of High kb Blood Sugar. 10:08 Pt is a 78 year old female who presents for high blood sugar. States she checked her kb sugar at worship and it was over 300. Currently reading 256. Denies nausea, vomiting, abd pain. Reports increased thirst. . Historical: - Allergies: 10:43 Cipro; ko1 10:43 minoxidil (bulk); ko1 - Home Meds: 10:43 glipizide Oral [Active]; ko1 - PMHx: 10:43 Atrial fibrillation; Diabetes; Diverticulitis; Hypertension; ruptured bowel; ko1 - PSHx: 10:43 bowel resection with colostomy and reversal; hysterectomy; ko1 - Immunization history:: Adult Immunizations up to date. - Infectious Disease History:: Denies. - Social history:: Smoking status: Patient denies any tobacco usage or history of. ROS: 10:10 Constitutional: As per HPI kb Exam: 10:10 Constitutional: This is a well developed, well nourished patient who is awake, alert, kb and in no acute distress. Head/Face: Normocephalic, atraumatic. ENT: Moist Mucous membranes Cardiovascular: Regular rate Respiratory: Respirations even and unlabored. No increased work of breathing. Talking in full sentences Skin: Warm, dry with normal turgor. Normal color. MS/ Extremity: Pulses equal, no cyanosis. Neurovascular intact. Full, normal range of motion. Neuro: Awake and alert, GCS 15, oriented to person, place, time, and situation. Vital Signs: 10:42 BP 157 / 62; Pulse 59; Resp 17; Temp 98.1; Pulse Ox 99% on R/A; ko1 11:46 BP 169 / 75; Pulse 64; Resp 15; Pulse Ox 100% ; ko1 MDM: 10:00 Medical Screening Exam initiated kb 10:10 Differential diagnosis: DKA, hyperglycemia. Data reviewed: vital signs, nurses notes. kb Historians other than the Patient: Spouse/Significant Other: spouse. 11:33 Counseling: I had a detailed discussion with the patient and/or guardian regarding the kb historical points, exam findings, and any diagnostic results supporting the discharge/admit diagnosis, lab results, the need for outpatient follow up, a family practitioner, to return to the emergency department if symptoms worsen or persist or if there are any questions or concerns that arise at home. 10/10 10:08 Order name: CBC with Diff; Complete Time: 10:48 kb 10/10 10:08 Order name: CMP; Complete Time: 11:09 kb 10/10 10:10 Order name: Urinalysis w/ reflexes; Complete Time: 11:55 kb 10/10 10:08 Order name: IV Start; Complete Time: 10:28 kb Administered Medications: 10:28 Drug: NS 0.9% IV 500 ml 500 ml IV at 1 bolus once; to be given as a bolus over 30 ko1 minutes Volume: 500 ml; Route: IV; Rate: 1 bolus; Site: left antecubital; 11:15 Follow up: Response: No adverse reaction; IV Status: Completed infusion; IV Intake: ko1 500ml Disposition Summary: 10/10/24 11:56 Discharge Ordered Notes: Location: Home kb Condition: Stable kb Diagnosis - Hyperglycemia, unspecified kb Followup: kb - With: Emergency Department - When: As needed - Reason: Worsening of condition Followup: kb - With: Private Physician - When: 2 - 3 days - Reason: Recheck today's complaints, Continuance of care, Re-evaluation by your physician Discharge Instructions: - Discharge Summary Sheet kb - Hyperglycemia, [id number] kb Forms: - Medication Reconciliation Form kb - Antibiotic Education kb - Prescription Opioid Use kb - Patient Portal Instructions kb - Leadership Thank You Letter kb Signatures: Dispatcher [employer] [facility] Julienne Smith FNP-C FNP-Araceli Cardona, RN RN ko1 Corrections: (The following items were deleted from the chart) 10:10 10:10 Urinalysis+U.LAB.BRZ ordered. [facility] 10:10 10:08 Pt is a 78 year old female who presents for high blood sugar. States she checked kb her sugar at worship and it was over 300. Currently reading 256. Denies nausea, vomiting, abd pain. . kb
[2024-10-10 14:48] VITALS: TEMP 98.1
[2024-10-10 14:54] VITALS: BP 169/75; O2SAT 100
== END 2024-10-10 12:06 | disposition home or self-care (01) ==
LOC: ER 09:57
DX: E11.65 Type 2 diabetes mellitus with hyperglycemia (principal); I10 Essential (primary) hypertension
CPT/HCPCS: 85025; 81001; 36415; 80053; 96360; 99284; J7040

== ENCOUNTER 2024-10-16 10:00 | Inpatient (IN) | payer MEDICARE ==
[2024-10-16 10:36] LABS: Absolute Basophils 0.1 K/uL (0-0.5); Absolute Eosinophils 0.1 K/uL (0-0.5); Absolute Monocytes 0.4 K/uL (0.1-1.3); Absolute Neutrophil 6.5 K/uL (1.8-8.0); Hematocrit 33.2 % (36.0-45.0); Hemoglobin 10.9 g/dL (12.0-15.0); Lymphocytes % 12.8 % (15.3-44.8); MCH 27.7 pg (27.0-35.0); MCHC 32.9 g/dL (32.0-36.0); MCV 84.1 fL (80-100); MPV 7.4 fL (7.6-11.3); Monocytes % 4.8 % (3.3-12.3); Neutrophils % 80.4 % (41.7-73.7); Nucleated Red Blood Cells % 0.1 % (0-0); Platelets 272 thou/uL (152-406); RBC Red Blood Cell Count 3.95 M/uL (3.86-4.86); Red Cell Distribution Width 14.8 % (12.1-15.2)
[2024-10-16] MEDS ORDERED: NA CHLORIDE 0.9% 500 ML ONE ×2 (10:36→13:30)
[2024-10-16 10:40] LABS: PT Prothrombin Time 10.2 SECONDS (9.4-12.5); PTT, Activated Partial Thromb 35.3 SECONDS (24.3-36.9); Protime INR 0.91
[2024-10-16 10:53] LABS: Albumin 3.6 g/dL (3.4-5.0); Albumin/Globulin Ratio 1.1 (1.1-1.8); Anion Gap 9.1 mEq/L (5.0-15.0); Bilirubin Total 0.3 mg/dL (0.2-1.0); Globulin 3.3 g/dL (2.3-3.5); Magnesium 2.6 mg/dL (1.6-2.4); Potassium 4.1 mEq/L (3.5-5.1); Protein, Total 6.9 g/dL (6.4-8.2); Troponin High Sensitivity 12.4 pg/mL (<58.9)
--- NOTE | 2024-10-16 10:54 | RAD REPORT ---
EXAMINATION: CT HEAD WITHOUT CONTRAST CLINICAL INDICATION: Female, 78 years old.DIZZINESS TECHNIQUE: Axial CT images from the skull base to the vertex without intravenous contrast. Coronal an d sagittal reformatted images were created from the data set. One or more of the following dose reduction techniques were used: Automated exposure control, adjustment of the mA and/or kV according to patient size, and/or iterative reconstruction. Unless otherwise specified, incidental findings do not require dedicated imaging follow-up. [id number]. COMPARISON: 02/05/2024 FINDINGS: INTRACRANIAL: No acute intracranial hemorrhage. No hydrocephalus. No mass effect or midline shift. No significant white matter disease. Percent sella, typically a normal variant. VASCULATURE: No visualized abnormalities in the arteries or dural venous sinuses. SCALP/SKULL: No significant soft tissue or osseous abnormalities. SINUSES: The visualized paranasal sinuses and mastoid air cells are predominantly clear. IMPRESSION: No acute intracranial abnormality.
--- NOTE | 2024-10-16 11:01 | RAD REPORT ---
EXAM: Chest Single View HISTORY: syncope COMPARISON: 06/10/2024 FINDINGS: LUNGS/PLEURA: The lungs are clear. No pleural effusions or pneumothorax. No pulmonary edema. MEDIASTINUM: The mediastinal silhouette is within normal limits. CARDIAC: Similar cardiomegaly. UPPER ABDOMEN: No significant abnormality. BONES: No acute fracture. ACDF in the cervical spine. LINES/TUBES/OTHER: N/A IMPRESSION: No evidence of acute cardiopulmonary disease.
[2024-10-16 11:41] LABS: SARS-CoV-2 Antigen CONTROL BLUE LINE VIS/BG OK; SARS-CoV-2 Antigen Rapid Res Negative (Negative)
--- NOTE | 2024-10-16 13:24 | EDPHYS ---
Physician Documentation [facility] Name: Jsei Lee Age: 78 yrs Sex: Female : 1945 Arrival Date: 10/16/2024 Time: 10:00 Bed 5 Private MD: ED Physician Rishi Patino HPI: 10/16 10:42 This 78 yrs old Female presents to ER via Wheelchair with complaints of Syncope. rn 10:42 The patient has experienced syncope. Onset: The symptoms/episode began/occurred just rn prior to arrival. Duration: This was a single episode. Associated injury: The patient did not suffer any apparent associated injury. Associated signs and symptoms: Pertinent positives: lightheadedness. Current symptoms: Currently, the patient is not experiencing any symptoms. The patient has not experienced similar symptoms in the past. The patient has not recently seen a physician. Historical: - Allergies: 10:15 Cipro; hb 10:15 minoxidil (bulk); hb - PMHx: 10:15 Atrial fibrillation; Diabetes; Diverticulitis; Hypertension; ruptured bowel; hb - PSHx: 10:15 bowel resection with colostomy and reversal; hysterectomy; hb - Immunization history:: Adult Immunizations unknown. - Infectious Disease History:: Denies. - Family history:: not pertinent. - Hospitalizations: : No recent hospitalization is reported. - Social history:: Smoking status: Patient denies any tobacco usage or history of. ROS: 10:42 Constitutional: Patient reports subjective fever but nothing documented. ENT: Negative rn for injury, pain, and discharge, Cardiovascular: Negative for chest pain, palpitations, and edema, Respiratory: Negative for shortness of breath, cough, wheezing, and pleuritic chest pain, Abdomen/GI: Negative for abdominal pain, nausea, vomiting, diarrhea, and constipation, MS/Extremity: Negative for injury and deformity, Skin: Negative for injury, rash, and discoloration, Neuro: Positive for dizziness and lightheadedness with syncope. No focal weakness or numbness Exam: 10:42 Constitutional: This is a well developed, well nourished patient who is awake, alert, rn and in no acute distress. ENT: Dry mucous membranes Cardiovascular: Regular rate and rhythm. No pulse deficits. Respiratory: No increased work of breathing, no retractions or nasal flaring. Abdomen/GI: Soft, non-tender MS/ Extremity: Pulses equal, no cyanosis. Neurovascular intact. Full, normal range of motion. Equal circumference. Neuro: Awake and alert, GCS 15, oriented to person, place, time, and situation. Cranial nerves II-XII grossly intact. Motor strength 5/5 in all extremities. Sensory grossly intact. 16:34 ECG was reviewed by the Attending Physician. rn Vital Signs: 10:13 BP 160 / 66; Pulse 64; Resp 16; Temp 98(TE); Pulse Ox 99% on R/A; Pain 5/10; hb 11:20 BP 159 / 59; Pulse 68; Resp 16 S; Pulse Ox 98% on R/A; aa5 12:30 BP 132 / 55; Pulse 72; Resp 16; Pulse Ox 97% on R/A; aa5 14:00 BP 145 / 55; Pulse 75; Resp 16 S; Pulse Ox 98% on R/A; aa5 15:00 BP 157 / 62; Pulse 81; Resp 16 S; Temp 98(TE); Pulse Ox 97% on R/A; aa5 17:30 BP 149 / 68; Pulse 80; Resp 18 S; Pulse Ox 97% on R/A; aa5 10:13 Pain Scale: Adult hb MDM: 10:05 Medical Screening Exam initiated rn 13:23 Differential Diagnosis: cardiac arrhythmia, cerebrovascular accident, idiopathic rn syncope, transient ischemic attack, vasovagal episode. Data reviewed: vital signs, nurses notes, lab test result(s), EKG, radiologic studies, CT scan, and as a result, I will admit patient. Consideration of Admission/Observation Patient was admitted/placed on observation. Escalation of care including admission/observation considered. Counseling: I had a detailed discussion with the patient and/or guardian regarding the historical points, exam findings, and any diagnostic results supporting the discharge/admit diagnosis, lab results, radiology results, the need for further work-up and treatment in the hospital. ED course: Tried to ambulate patient, upon sitting still dizzy and feels lightheaded with tunnel vision like she is going to pass out again despite fluids given through IV. No acute findings and workup but will observe in hospital to hospitalist service given still symptomatic and patient has never passed out before.. 10/16 10:13 Order name: CBC with Diff; Complete Time: 11:19 rn 10/16 10:13 Order name: Magnesium; Complete Time: 11:19 rn 10/16 10:13 Order name: Protime (+inr); Complete Time: 11:19 rn 10/16 10:13 Order name: Ptt, Activated; Complete Time: 11:19 rn 10/16 10:13 Order name: Troponin High Sensitivity; Complete Time: 11:19 rn 10/16 10:13 Order name: Urinalysis w/ reflexes rn 10/16 10:13 Order name: Blood Culture Adult (2) rn 10/16 10:13 Order name: CMP; Complete Time: 11:19 rn 10/16 10:13 Order name: Lactate w/ 2H reflex if indic.; Complete Time: 11:19 rn 10/16 10:13 Order name: Flu; Complete Time: 13:00 rn 10/16 10:13 Order name: SARS RAPID; Complete Time: 13:00 rn 10/16 16:30 Order name: Urinalysis w/ reflexes EDMS 10/16 16:30 Order name: Basic Metabolic Panel EDMS 10/16 16:30 Order name: Basic Metabolic Panel EDMS 10/16 16:30 Order name: Basic Metabolic Panel EDMS 10/16 16:30 Order name: CBC with Automated Diff EDMS 10/16 16:30 Order name: CBC with Automated Diff EDMS 10/16 16:30 Order name: CBC with Automated Diff EDMS 10/16 16:30 Order name: Magnesium EDMS 10/16 16:30 Order name: Magnesium EDMS 10/16 16:30 Order name: Magnesium EDMS 10/16 16:30 Order name: NT PRO-BNP EDMS 10/16 16:30 Order name: NT PRO-BNP EDMS 10/16 10:13 Order name: CT Head Brain wo Cont; Complete Time: 11:19 rn 10/16 10:13 Order name: Chest Single View XRAY; Complete Time: 11:19 rn 10/16 16:30 Order name: Echo with Doppler EDMS 10/16 16:30 Order name: Carotid Artery Bilateral EDMS 10/16 10:13 Order name: EKG; Complete Time: 10:14 rn 10/16 16:30 Order name: Physical Therapy Consult EDMS 10/16 10:13 Order name: Cardiac monitoring; Complete Time: 10:43 rn 10/16 10:13 Order name: EKG - Nurse/Tech; Complete Time: 11:09 rn 10/16 10:13 Order name: IV Saline Lock; Complete Time: 10:43 rn 10/16 10:13 Order name: Labs collected and sent; Complete Time: 10:43 rn 10/16 10:13 Order name: NPO; Complete Time: 10:43 rn 10/16 10:13 Order name: O2 Per Protocol; Complete Time: 10:43 rn 10/16 10:13 Order name: O2 Sat Monitoring; Complete Time: 10:43 rn 10/16 10:13 Order name: IV Saline Lock - Large Bore; Complete Time: 10:42 rn 10/16 10:13 Order name: Vital Signs; Complete Time: 10:42 rn 10/16 13:18 Order name: Misc. Order: ambulate patient; Complete Time: 13:23 rn EC:34 Rate is 62 beats/min. Rhythm is regular. QRS [place] is Normal. HI interval is normal. QRS rn interval is normal. QT interval is normal. No Q waves. T waves are Normal. No ST changes noted. Clinical impression: Normal ECG. Interpreted by me. Reviewed by me. Administered Medications: 11:09 Drug: NS 0.9% IV 500 ml IV at bolus once; to be given as a bolus over 30 minutes Route: aa5 IV; Rate: bolus; Site: left wrist; 11:39 Follow up: IV Status: Completed infusion; IV Intake: 500ml aa5 14:09 Drug: Meclizine PO 50 mg PO once Route: PO; aa5 15:01 Follow up: Response: No adverse reaction aa5 14:09 Drug: NS 0.9% IV 500 ml IV at bolus once; to be given as a bolus over 30 minutes Route: aa5 IV; Rate: bolus; Site: right wrist; 14:39 Follow up: IV Status: Completed infusion; IV Intake: 500ml aa5 Disposition Summary: 10/16/24 13:24 Hospitalization Ordered Notes: Hospitalization Status: Observation rn Provider: London Orellana rn [facility] rn Condition: Stable rn Problem: new rn Symptoms: are unchanged rn Bed/Room Type: Standard rn Room Assignment: 217(10/16/24 16:30) sp Diagnosis - Syncope rn - Dizziness and giddiness rn Forms: - Medication Reconciliation Form rn - SBAR form rn - Leadership Thank You Letter rn Signatures: Dispatcher [employer] Michelle Mustafa Roman, MD MD rn Calderon, Audri, RN RN aa5 Chanel Del Valle RN RN Corrections: (The following items were deleted from the chart) 11:09 10:13 Kelli melendez. will aa5 16:30 13:24 rn joan
--- NOTE | 2024-10-16 13:24 | ER ---
Nurse's Notes [facility] Name: Jesi Lee Age: 78 yrs Sex: Female : 1945 Arrival Date: 10/16/2024 Time: 10:00 Bed 5 Private MD: Diagnosis: Syncope;Dizziness and giddiness Presentation: 10/16 10:13 Chief complaint: Chief complaint: Syncopal episode while ambulating from bathroom, was hb assisted to floor by spouse, denies injury. Also c/o generalized weakness, malaise, and subjective fever. 10:13 Coronavirus screen: At this time, the client does not indicate any symptoms associated hb with coronavirus-19. Ebola Screen: No symptoms or risks identified at this time. Initial Sepsis Screen: Does the patient meet any 2 criteria? No. Patient's initial sepsis screen is negative. Does the patient have a suspected source of infection? No. Patient's initial sepsis screen is negative. Risk Assessment: Do you want to hurt yourself or someone else? Patient reports no desire to harm self or others. Onset of symptoms was October 16, 2024. 10:13 Method Of Arrival: Wheelchair hb 10:13 Acuity: RENETTA 3 hb Historical: - Allergies: 10:15 Cipro; hb 10:15 minoxidil (bulk); hb - PMHx: 10:15 Atrial fibrillation; Diabetes; Diverticulitis; Hypertension; ruptured bowel; hb - PSHx: 10:15 bowel resection with colostomy and reversal; hysterectomy; hb - Immunization history:: Adult Immunizations unknown. - Infectious Disease History:: Denies. - Family history:: not pertinent. - Hospitalizations: : No recent hospitalization is reported. - Social history:: Smoking status: Patient denies any tobacco usage or history of. Screenin:30 [facility] ED Fall Risk Assessment (Adult) History of falling in the last 3 months, aa5 including since admission Yes- physiologic fall (2 pts) Confusion or Disorientation No (0 pts) Intoxicated or Sedated No (0 pts) Impaired Gait No (0 pts) Mobility Assist Device Used No (0 pt) Altered Elimination No (0 pt) Score/Fall Risk Level 0 - 2 = Low Risk Oriented to surroundings, Maintained a safe environment, Educated pt \\T\\ family on fall prevention, incl call for assistance when getting out of bed. Abuse screen: Denies threats or abuse. Nutritional screening: No deficits noted. Tuberculosis screening: No symptoms or risk factors identified. Assessment: 10:20 General: Appears comfortable, Behavior is calm, cooperative. Pain: Denies pain. Neuro: aa5 Level of Consciousness is awake, alert, obeys commands, Oriented to person, place, time, situation, Reports generalized weakness. Cardiovascular: Heart tones S1 S2 present Rhythm is regular. Respiratory: Airway is patent Respiratory effort is even, unlabored, Respiratory pattern is regular, symmetrical. GI: Abdomen is round non-distended, Bowel sounds present X 4 quads. Abd is soft and non tender X 4 quads. : No signs and/or symptoms were reported regarding the genitourinary system. EENT: No signs and/or symptoms were reported regarding the EENT system. Derm: Skin is pink, warm \\T\\ dry. Musculoskeletal: Range of motion: intact in all extremities. 11:39 Reassessment: Patient is alert, oriented x 3, equal unlabored respirations, skin aa5 warm/dry/pink. 13:23 Reassessment: Patient and/or family updated on plan of care and expected duration. Pain rs5 level reassessed. Patient is alert, oriented x 3, equal unlabored respirations, skin warm/dry/pink. to bedside to ambulate pt, pt sat up from laying position, pt states "I feel too dizzy, when you sat me up, I don't feel like I will be able to walk". 14:09 Reassessment: Patient is alert, oriented x 3, equal unlabored respirations, skin aa5 warm/dry/pink. 14:39 Reassessment: Patient is alert, oriented x 3, equal unlabored respirations, skin aa5 warm/dry/pink. 17:30 Reassessment: Patient is alert, oriented x 3, equal unlabored respirations, skin aa5 warm/dry/pink. 18:10 Reassessment: Patient is alert, oriented x 3, equal unlabored respirations, skin aa5 warm/dry/pink. Vital Signs: 10:13 BP 160 / 66; Pulse 64; Resp 16; Temp 98(TE); Pulse Ox 99% on R/A; Pain 5/10; hb 11:20 BP 159 / 59; Pulse 68; Resp 16 S; Pulse Ox 98% on R/A; aa5 12:30 BP 132 / 55; Pulse 72; Resp 16; Pulse Ox 97% on R/A; aa5 14:00 BP 145 / 55; Pulse 75; Resp 16 S; Pulse Ox 98% on R/A; aa5 15:00 BP 157 / 62; Pulse 81; Resp 16 S; Temp 98(TE); Pulse Ox 97% on R/A; aa5 17:30 BP 149 / 68; Pulse 80; Resp 18 S; Pulse Ox 97% on R/A; aa5 10:13 Pain Scale: Adult hb ED Course: 10:02 Patient arrived in ED. mg5 10:05 Rishi Patino MD is Attending Physician. rn 10:12 Itzel Parish, RAUL is Primary Nurse. aa5 10:15 Triage completed. hb 10:15 Arm band placed on. hb 10:20 Patient has correct armband on for positive identification. Placed in gown. Bed in low aa5 position. Call light in reach. Side rails up X2. Client placed on continuous cardiac and pulse oximetry monitoring. NIBP monitoring applied. air sampling and monitoring on. Pulse ox on. NIBP on. 10:25 First set of blood cultures drawn by me. aa5 10:25 Initial lab(s) drawn, by me, sent to lab. aa5 10:30 Inserted saline lock: 22 gauge in left wrist, using aseptic technique. aa5 10:45 CT Head Brain wo Cont In Process Unspecified. EDMS 10:54 Chest Single View XRAY In Process Unspecified. EDMS 10:55 EKG done, by ED staff, reviewed by Rishi Patino MD. aa5 11:05 COVID swab sent to lab. Flu and/or RSV swab sent to lab. aa5 11:07 Second set of blood cultures drawn by me. aa5 13:24 London Orellana is Hospitalizing Provider. rn 14:09 Inserted saline lock: 20 gauge in right wrist, using aseptic technique. intact, aa5 bleeding controlled, No redness/swelling at site. Pressure dressing applied, unable to flush 22G to L wrist, IV was dc'd. 18:30 No provider procedures requiring assistance completed. aa5 Administered Medications: 11:09 Drug: NS 0.9% IV 500 ml IV at bolus once; to be given as a bolus over 30 minutes Route: aa5 IV; Rate: bolus; Site: left wrist; 11:39 Follow up: IV Status: Completed infusion; IV Intake: 500ml aa5 14:09 Drug: Meclizine PO 50 mg PO once Route: PO; aa5 15:01 Follow up: Response: No adverse reaction aa5 14:09 Drug: NS 0.9% IV 500 ml IV at bolus once; to be given as a bolus over 30 minutes Route: aa5 IV; Rate: bolus; Site: right wrist; 14:39 Follow up: IV Status: Completed infusion; IV Intake: 500ml aa5 Medication: 11:30 VIS not applicable for this client. aa5 Intake: 11:39 IV: 500ml; Total: 500ml. aa5 14:39 IV: 500ml; Total: 1000ml. aa5 Outcome: 13:24 Decision to Hospitalize by Provider. rn 18:30 Admitted to Tele accompanied by tech, family with patient, via stretcher, with chart, aa5 18:30 Condition: stable 18:30 Discharge instructions given to patient, significant other, Instructed on the need for admit, Demonstrated understanding of instructions, 18:44 Patient left the ED. hb Signatures: Dispatcher [employer] EDMS Rishi Patino MD MD rn Calderon, Audri, RN RN aa5 Chanel Del Valle RN RN Niranjan Easley RN RN rs5 Misty Aponte mg5 Corrections: (The following items were deleted from the chart) 10:15 10:13 Chief complaint: hb hb
[2024-10-16] MEDS ORDERED: MECLIZINE HCL 12.5 MG TAB ONE (13:30)
[2024-10-16 14:53] LABS: Sqamous Epithelial <5 /HPF (None Seen); Urine Bacteria None Seen /HPF (<20); Urine Bilirubin NEGATIVE (Negative); Urine Blood Negative (Negative); Urine Clarity Turbid (Clear); Urine Color Yellow (Yellow); Urine Culture Reflex Order NOT NEEDED; Urine Glucose NEGATIVE (Negative); Urine Ketones NEGATIVE (Negative); Urine Microscopic Reflex YN ORDER UMIC; Urine Mucus Slight /HPF (None Seen); Urine Nitrite NEGATIVE (Negative); Urine Protein 2+ (Negative); Urine RBC <5 /HPF (None Seen); Urine Urobilinogen Normal (Normal); Urine WBC <5 /HPF (<5); Urine pH 6.5 (5.0-7.0)
--- NOTE | 2024-10-16 16:23 | P.HP ---
Certification for Inpatient Patient admitted to: Inpatient Practitioner: I am a practitioner with admitting privileges, knowledge of patient current condition, hospital course, and medical plan of care. Services: Services provided to patient in accordance with Admission requirements found in Title 42 Section 412.3 of the Code of Federal Regulations Patient History Date of Service: 10/16/24 Reason for admission: Syncopal episode History of Present Illness: 78-year-old female with a past medical historyAtrial fibrillation; Diabetes; Diverticulitis; Hypertension; ruptured bowel; PSHx: bowel resection with colostomy and reversal; hysterectomy; presents to the emergency room with syncopal episode. Family reports helping patient to the floor. Denies fall, denies hitting her head, she reports generalized weakness, she reports symptoms worse with hypotension. She reports PCP adjusting her glipizide, lowering dose. She reports symptoms worse with standing, changing positions. No reported chest pain, abdominal pain, nausea vomiting diarrhea, edema. She reports history of cervical and lumbar spinal stenosis, recent MRI, she reports numbness to the upper extremities, weakness to the bilateral lower extremities. MRI was discussed with Dr Orellana prior to accepting patient for admission, plan to admit for syncopal episode, Allergies No Known Allergies Allergy (Verified 08/24/19 13:01) Home Medications: Aspirin [Aspirin EC 81 MG] 81 mg PO DAILY 01/22/24 Atorvastatin Calcium [Lipitor*] 20 mg PO BEDTIME 01/22/24 Gabapentin [Neurontin*] 600 mg PO TID 01/22/24 Na Bicarb Tab [Sodium Bicarb 325 MG Tab*] 650 mg PO BID 01/22/24 Hydrocodone 5/APAP 325 [[place] 5/325*] 1 tab PO Q6HP PRN #30 tab 01/25/24 Nifedipine Xl [Procardia Xl*] 30 mg PO BID #60 tab 02/13/24 carvediloL [Coreg*] 25 mg PO BID 02/16/24 Hydralazine [Apresoline*] 50 mg PO TID #90 tab 02/25/24 Hydrocortisone Acetate [Hemmorex-Hc] 30 mg RC BID PRN #30 supp.rect 02/25/24 Apixaban [Eliquis] 2.5 mg PO BID 06/11/24 - Past Medical/Surgical History Diabetic: Yes -: HTN -: Diabetes mellitus type 2, non insulin dependent -: Chronic Hearing loss -: Bowel Resection with Ileostomy bag/reversal -: Chronic hyponatremia -: intermittent atrial fibrillation -: Cervical neck stenosis -: Lumbar stenosis -: Degenerative disc disease -: Hysterectomy -: Cholecystectomy -: [place] cataract sx -: 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 She is . - Family History Mother -: Hypertension, Diabetes Sister -: Hypertension, Diabetes Dad & Mom -: Hypertension, Diabetes - Social History Alcohol use: No CD- Drugs: No Caffeine use: Yes Review of Systems 10-point ROS is otherwise unremarkable General: As per HPI Physical Examination - Physical Exam General: Alert, In no apparent distress, Oriented x3, Other (Generalized weakness) HEENT: Atraumatic, Normocephalic, PERRLA Neck: Supple, 2+ carotid pulse no bruit, JVD not distended Respiratory: Clear to auscultation bilaterally, Normal air movement Cardiovascular: No edema, Normal pulses, Regular rate/rhythm, Normal S1 S2 Capillary refill: <2 Seconds Gastrointestinal: Normal bowel sounds, Soft and benign, Non-distended Musculoskeletal: No clubbing, No swelling, Other (Generalized weakness, unsteady gait) - Studies Laboratory Data (last 24 hrs) 10/16/24 10/16/24 10/16/24 10:25 10:25 10:25 WBC 8.10 Hgb 10.9 L Hct 33.2 L Plt Count 272 PT 10.2 INR 0.91 APTT 35.3 Sodium 134 L Potassium 4.1 BUN 27 H Creatinine 1.75 H Glucose 172 H Magnesium 2.6 H Total Bilirubin 0.3 AST 16 ALT 19 Alkaline Phosphatase 57 Microbiology Data (last 24 hrs): 10/16/24 11:05 Nasopharnyx Influenza Type A Antigen Screen - Final 10/16/24 11:05 Nasopharnyx Influenza Type B Antigen Screen - Final Assessment and Plan - Problems (Diagnosis) (1) Syncopal episodes Current Visit: Yes Status: Acute (2) Orthostatic hypotension Current Visit: Yes Status: Acute (3) Unsteady gait Current Visit: Yes Status: Acute (4) Lumbar stenosis Current Visit: Yes Status: Acute (5) Spondylosis Current Visit: Yes Status: Acute - Plan Admit to MedSurg Adjust antihypertensives for syncopal episode, hypotension Orthostatic vital signs Midodrine as needed systolic blood pressure less than 100 PT to eval, fall precautions, as needed analgesia Echo ordered Accu-Cheks ACHS, sliding scale insulin Microcytic anemia trend H&H transfuse less than 7 Chest x-ray no acute cardiopulmonary disease Cervical spine CT Severe central canal stenosis is present at C3-4 described, with 5-6 mm disc extrusion present at this level. There is elevated signal within the cord as well at this level and at the C4-5 levellikely cord edema and myelomalacia. The C3-4 findings have progressed since the 09/29/2023 comparison study. Reported By: Aditya Swift Lumbar CT Significant lower lumbar degenerative spondylosis as detailed. Severe canal stenosis is noted at L3-4 and L4-5 as detailed. Diabetic diet Full code DVT SCDs Disposition Home with home health Discharge Plan: Home - Advance Directives Does patient have a Living Will: No Does patient have a Durable POA for Healthcare: No - Code Status/Comfort Care Code Status: Full Code Critical Care: No Time Spent Managing Pts Care (In Minutes): 55
[2024-10-16] MEDS ORDERED: ACETAMINOPHEN 500 MG TAB PO PRN (16:24)
[2024-10-16] MEDS ORDERED: ONDANSETRON 4 MG/2 ML VIAL IV PRN (16:24)
[2024-10-16] MEDS ORDERED: MIDODRINE HCL 5 MG TABLET PO PRN (16:27)
[2024-10-16] MEDS: NA CHLORIDE 0.9% 1,000 ML IV SCH (17:00)
[2024-10-16 20:28] VITALS: BMI 21.1
[2024-10-16] MEDS ORDERED: GLUCAGON 1 MG/VIAL IM PRN (20:50)
[2024-10-16] MEDS ORDERED: D10W 125 ML IV PRN (20:50)
[2024-10-16] MEDS: INSULIN REGULAR (HUMAN) 100 UNIT/ML SQ SCH (22:41)
[2024-10-17 04:18] LABS: Absolute Basophils 0.1 K/uL (0-0.5); Absolute Lymphocytes (CBC) 0.9 K/uL (0.7-4.9); Absolute Monocytes 0.3 K/uL (0.1-1.3); Absolute Neutrophil 5.8 K/uL (1.8-8.0); Basophils % 0.7 % (0-1.3); Eosinophils % 0.6 % (0-4.4); Hematocrit 31.9 % (36.0-45.0); Hemoglobin 10.5 g/dL (12.0-15.0); MCH 27.6 pg (27.0-35.0); MCHC 32.8 g/dL (32.0-36.0); MCV 84.2 fL (80-100); MPV 7.3 fL (7.6-11.3); Monocytes % 4.7 % (3.3-12.3); Platelets 249 thou/uL (152-406); RBC Red Blood Cell Count 3.79 M/uL (3.86-4.86)
[2024-10-17 04:37] LABS: Anion Gap 8.7 mEq/L (5.0-15.0); Magnesium 2.3 mg/dL (1.6-2.4); Potassium 3.7 mEq/L (3.5-5.1)
[2024-10-17] MEDS: HYDRALAZINE HCL 20 MG/ML VIAL IV PRN (07:17)
--- NOTE | 2024-10-17 09:46 | P.PN ---
Subjective Date of Service: 10/17/24 Chief Complaint: Syncopal episode Subjective: No new changes, Improving <Renetta Ewing - Last Filed: 10/17/24 10:03> Date of Service: 10/17/24 <CHELSEY Orellana - Last Filed: 10/17/24 11:17> Review of Systems 10-point ROS is otherwise unremarkable General: Weakness, Malaise Eyes: Unremarkable ENT: Unremarkable Respiratory: Unremarkable Cardiovascular: Unremarkable Gastrointestinal: Unremarkable Musculoskeletal: Unremarkable Integumentary: Unremarkable Neurological: As per HPI <Renetta Ewing - Last Filed: 10/17/24 10:03> Physical Examination - Vital Signs Temperature: 98.9 F Blood Pressure: 230/70 Pulse: 64 Respirations: 18 Pulse Ox (%): 98 - Physical Exam General: Alert, In no apparent distress, Oriented x3 HEENT: Atraumatic, Normocephalic, PERRLA Neck: Supple Respiratory: Normal air movement Cardiovascular: No edema, Normal pulses Capillary refill: <2 Seconds Gastrointestinal: Soft and benign Musculoskeletal: No clubbing, No swelling Integumentary: No rashes Neurological: Normal speech, Normal tone, Normal affect Lymphatics: No axilla or inguinal lymphadenopathy External genitalia: Deferred Rectal: Deferred - Studies Laboratory Data (last 24 hrs) 10/16/24 10/16/24 10/16/24 10:25 10:25 10:25 WBC 8.10 Hgb 10.9 L Hct 33.2 L Plt Count 272 PT 10.2 INR 0.91 APTT 35.3 Sodium 134 L Potassium 4.1 BUN 27 H Creatinine 1.75 H Glucose 172 H Magnesium 2.6 H Total Bilirubin 0.3 AST 16 ALT 19 Alkaline Phosphatase 57 Microbiology Data (last 24 hrs): 10/16/24 11:05 Nasopharnyx Influenza Type A Antigen Screen - Final 10/16/24 11:05 Nasopharnyx Influenza Type B Antigen Screen - Final <Renetta Ewinglen - Last Filed: 10/17/24 10:03> - Studies Microbiology Data (last 24 hrs): 10/16/24 11:05 Nasopharnyx Influenza Type A Antigen Screen - Final 10/16/24 11:05 Nasopharnyx Influenza Type B Antigen Screen - Final <CHELSEY Orellana - Last Filed: 10/17/24 11:17> Assessment And Plan - Plan - Problems (Diagnosis) (1) Syncopal episodes Current Visit: Yes Status: Acute (2) Orthostatic hypotension Current Visit: Yes Status: Acute (3) Unsteady gait Current Visit: Yes Status: Acute (4) Lumbar stenosis Current Visit: Yes Status: Acute (5) Spondylosis Current Visit: Yes Status: Acute - Plan Admit to MedSurg Adjust antihypertensives for syncopal episode, hypotension. 10/17/24 input home medications. Pt has been very hypertensive since admission Orthostatic vital signs Midodrine as needed systolic blood pressure less than 100 - held for HTN PT to eval, fall precautions, as needed analgesia Echo ordered - last ECHO 06/11/24 - echo cancelled 06/11/2024 1. NORMAL LEFT VENTRICULAR EJECTION FRACTION 60-65% WITH NORMAL WALL MOTION 2. GRADE I DIASTOLIC DYSFUNCTION 3. TRACE MITRAL REGURGITATION/ TRICUSPID REGURGITATION Accu-Cheks ACHS, sliding scale insulin - 10/17/24 reordered pt's glipezide from home med list Microcytic anemia trend H&H transfuse less than 7 Chest x-ray no acute cardiopulmonary disease Cervical spine CT Severe central canal stenosis is present at C3-4 described, with 5-6 mm disc extrusion present at this level. There is elevated signal within the cord as well at this level and at the C4-5 levellikely cord edema and myelomalacia. The C3-4 findings have progressed since the 09/29/2023 comparison study. Reported By: Aditya Cochran Lumbar CT Significant lower lumbar degenerative spondylosis as detailed. Severe canal stenosis is noted at L3-4 and L4-5 as detailed. Diabetic diet Full code DVT SCDs Disposition Home with home health and assistive devices 10/18/24 Concern for persistent HTN this am. 225/78 Home medications placed. Will restart Gabapentin. Pt's CGM showed 1am glucose of 64. Snack given. This am around 7 glucose 150mg/dL Pt had a normal echo on 06/11/24 - suspect s/s related to myelopathy not cardiac Neurosurgery appt next month (November) consult for discharge planning. Discharge Plan: Home - Advance Directives Does patient have a Living Will: No Does patient have a Durable POA for Healthcare: No - Code Status/Comfort Care Code Status: Full Code Critical Care: No Discharge Plan: Home Plan to discharge in: 24 Hours - Code Status/Comfort Care Code Status Assessed: Yes (Full) <Renetta Ewing - Last Filed: 10/17/24 10:03> - Plan Clinically consistent with vasovagal syncope, second episode, she had fall syncope workup not too long ago, normal transthoracic echocardiogram, coronary angiogram shows calcified single-vessel coronary artery disease. Normal sinus rhythm on twelve-lead EKG, no bradycardia or tachyarrhythmia noted on telemetry, plan to discharge home once her blood pressure is reasonably controlled. Patient and her family are aware that her dizziness, unsteady gait, weakness of lower extremity, paresthesia of upper extremity are related to progressive cervical myelopathy due to severe cervical spinal stenosis by MRI in September. She has a appointment to see a neurosurgeon next week. The patient herself refused to be transferred to [facility] for her severe neurologic problem yesterday when she got admitted through the emergency room. <CHELSEY Orellana - Last Filed: 10/17/24 11:17>
[2024-10-17] MEDS: carvediloL 25 MG TAB PO SCH (10:05)
[2024-10-17] MEDS: NIFEDIPINE XL 60 MG TABLET PO ONE (10:06)
[2024-10-17] MEDS: HYDRALAZINE HCL 25 MG TABLET ONE (10:07)
[2024-10-17] MEDS: HYDRALAZINE HCL 25 MG TABLET PO SCH (10:11)
[2024-10-17] MEDS: GABAPENTIN 300 MG CAP PO SCH (10:56)
[2024-10-17] MEDS ORDERED: HYDRALAZINE HCL 25 MG TABLET PO SCH (14:00)
[2024-10-17] MEDS ORDERED: GABAPENTIN 300 MG CAP PO SCH (14:00)
[2024-10-17] MEDS: CLONIDINE 0.2 MG/PATCH TD SCH (15:19)
[2024-10-17] MEDS ORDERED: SODIUM BICARB 325 MG TAB PO SCH (21:00)
[2024-10-18 04:36] LABS: Absolute Basophils 0.1 K/uL (0-0.5); Absolute Eosinophils 0.1 K/uL (0-0.5); Absolute Lymphocytes (CBC) 1.3 K/uL (0.7-4.9); Absolute Monocytes 0.4 K/uL (0.1-1.3); Absolute Neutrophil 4.7 K/uL (1.8-8.0); Basophils % 1.1 % (0-1.3); Eosinophils % 1.3 % (0-4.4); Hematocrit 29.7 % (36.0-45.0); Hemoglobin 9.5 g/dL (12.0-15.0); Lymphocytes % 19.7 % (15.3-44.8); MCH 27.1 pg (27.0-35.0); MCHC 32.1 g/dL (32.0-36.0); MCV 84.5 fL (80-100); MPV 8.1 fL (7.6-11.3); Monocytes % 6.6 % (3.3-12.3); Neutrophils % 71.3 % (41.7-73.7); Platelets 224 thou/uL (152-406); RBC Red Blood Cell Count 3.51 M/uL (3.86-4.86); Red Cell Distribution Width 15.1 % (12.1-15.2)
[2024-10-18 04:54] LABS: Anion Gap 8.6 mEq/L (5.0-15.0); Potassium 3.6 mEq/L (3.5-5.1)
[2024-10-18] MEDS: glipiZIDE 5 MG TAB PO SCH (08:00)
[2024-10-18] MEDS: ASPIRIN EC 81 MG TAB PO SCH (10:21)
[2024-10-18] MEDS: NIFEDIPINE XL 30 MG TABLET PO SCH (10:22)
--- NOTE | 2024-10-18 14:34 | ECHO ---
HEIGHT: 5 ft 1 in WEIGHT: 112 lb 0 oz DATE OF STUDY: 10/18/[address]: Naina Calvert 2-DIMENSIONAL: YES M.MODE: YES DOPPLER: YES COLOR FLOW: YES TDS: NO PORTABLE: YES DEFINITY: NO BUBBLE STUDY: NO DIAGNOSIS: SYNCOPAL EPISODE CARDIAC HISTORY: CATHERIZATION: SURGERY: PROSTHETIC VALVE: PACEMAKER: MEASUREMENTS (cm) DIASTOLIC (NORMALS) SYSTOLIC (NORMALS) IVSd 1.1 (0.6-1.2) LA Diam 3.3 (1.9-4.0) LVEF 65% LVIDd 4.7 (3.5-5.7) LVIDs 2.5 (2.0-3.5) %FS 47% LVPWd 1.2 (0.6-1.2) Ao Diam 3.0 (2.0-3.7) 2 DIMENSIONAL ASSESSMENT: RIGHT ATRIUM: NORMAL LEFT ATRIUM: NORMAL RIGHT VENTRICLE: NORMAL LEFT VENTRICLE: NORMAL TRICUSPID VALVE: NORMAL MITRAL VALVE: NORMAL PULMONIC VALVE: NORMAL AORTIC VALVE: MILD AORTIC REGURGITATION PERICARDIAL EFFUSION: NONE AORTIC ROOT: NORMAL LEFT VENTRICULAR WALL MOTION: NORMAL. DOPPLER/COLOR FLOW: NORMAL. COMMENTS: 1. NORMAL LEFT VENTRICULAR SYSTOLIC FUNCTION, EJECTION FRACTION 65%, NORMAL WALL MOTION. 2. NORMAL DIASTOLIC FUNCTION. 3. MILD AORTIC REGURGITATION. TECHNOLOGIST: CHING OLIVER
--- NOTE | 2024-10-18 15:19 | P.DS ---
Admission Date: 10/16/24 Discharge Date: 10/18/24 Disposition: [facility] HOME/HOME HEALTH CARE Reason for Admission: Syncopal episode Brief History of Present Illness: 78-year-old female with a past medical historyAtrial fibrillation; Diabetes; Diverticulitis; Hypertension; ruptured bowel; PSHx: bowel resection with colostomy and reversal; hysterectomy; presents to the emergency room with syncopal episode. Family reports helping patient to the floor. Denies fall, denies hitting her head, she reports generalized weakness, she reports symptoms worse with hypotension. She reports PCP adjusting her glipizide, lowering dose. She reports symptoms worse with standing, changing positions. No reported chest pain, abdominal pain, nausea vomiting diarrhea, edema. She reports history of cervical and lumbar spinal stenosis, recent MRI, she reports numbness to the upper extremities, weakness to the bilateral lower extremities. MRI was discussed with Dr Orellana prior to accepting patient for admission, plan to admit for syncopal episode, Hospital Course: Mrs. Lee has been quite hypertensive through the course of her hospitalization. She had a normal echo on 06/11/2024 and a repeated normal echo 10/18/24. She is awaiting neurosurgical evaluation in November for significant spinal stenosis with compression and inflammation. She is able to move all extremities, walks well with a front wheeled walker, and denies pain. Her blood pressure medicines include Catapres 0.2 patch q. 7 days, nifedipine was doubled from 30 mg to 60 mg p.o. daily, Coreg 25 mg p.o. twice daily, hydralazine 50 mg p.o. 3 times daily, for consistent systolic blood pressures 170-200. Will add small dose of metoprolol. Mrs. Lee should follow-up with her PCP in 1 to 2 days. Vital Signs/Physical Exam: Temp Pulse Resp BP Pulse Ox 97.4 F 66 16 206/86 H 96 10/18/24 12:00 10/18/24 12:00 10/18/24 12:00 10/18/24 12:10/18/24 12:00 General: Alert, In no apparent distress, Oriented x3 HEENT: Atraumatic, Normocephalic, PERRLA Neck: Supple Respiratory: Clear to auscultation bilaterally, Normal air movement Cardiovascular: Normal pulses, Regular rate/rhythm, Normal S1 S2 Capillary refill: <2 Seconds Gastrointestinal: Soft and benign Musculoskeletal: No clubbing, No swelling Integumentary: No rashes Neurological: Normal speech, Normal tone, Normal affect Lymphatics: No axilla or inguinal lymphadenopathy External genitalia: Deferred Rectal: Deferred Laboratory Data at Discharge: WBC 6.60 thou/uL (4.3-10.9) 10/18/24 04:04 Hgb 9.5 g/dL (12.0-15.0) L D 10/18/24 04:04 Hct 29.7 % (36.0-45.0) L 10/18/24 04:04 Plt Count 224 thou/uL (152-406) 10/18/24 04:04 PT 10.2 SECONDS (9.4-12.5) 10/16/24 10:25 INR 0.91 10/16/24 10:25 APTT 35.3 SECONDS (24.3-36.9) 10/16/24 10:25 Sodium 137 mEq/L (136-145) 10/18/24 04:04 Potassium 3.6 mEq/L (3.5-5.1) 10/18/24 04:04 BUN 20 mg/dL (7-18) H 10/18/24 04:04 Creatinine 1.56 mg/dL (0.55-1.02) H 10/18/24 04:04 Glucose 177 mg/dL (74-106) H 10/18/24 04:04 Magnesium 2.0 mg/dL (1.6-2.4) 10/18/24 04:04 Total Bilirubin 0.3 mg/dL (0.2-1.0) 10/16/24 10:25 AST 16 U/L (15-37) 10/16/24 10:25 ALT 19 U/L (13-56) 10/16/24 10:25 Alkaline Phosphatase 57 U/L (45-117) 10/16/24 10:25 Home Medications: Aspirin [Aspirin EC 81 MG] 81 mg PO DAILY 01/22/24 Atorvastatin Calcium [Lipitor*] 20 mg PO BEDTIME 01/22/24 Gabapentin [Neurontin*] 600 mg PO TID 01/22/24 Na Bicarb Tab [Sodium Bicarb 325 MG Tab*] 650 mg PO BID 01/22/24 Hydrocodone 5/APAP 325 [[place] 5/325*] 1 tab PO Q6HP PRN #30 tab 01/25/24 carvediloL [Coreg*] 25 mg PO BID 02/16/24 Hydralazine [Apresoline*] 50 mg PO TID #90 tab 02/25/24 Hydrocortisone Acetate [Hemmorex-Hc] 30 mg RC BID PRN #30 supp.rect 02/25/24 Glipizide [Glipizide ER] 5 mg PO DAILY 10/16/24 Metoprolol Succinate [Toprol Xl*] 25 mg PO DAILY #30 tab 10/18/24 Nifedipine Xl [Procardia Xl*] 60 mg PO BID #60 tab 10/18/24 cloNIDine [Catapres-Tts 2] 0.2 mg TD SEECOM #10 patch 10/18/24 New Medications: cloNIDine [Catapres-Tts 2] 0.2 mg TD SEECOM #10 patch Nifedipine Xl [Procardia Xl*] 60 mg PO BID #60 tab Metoprolol Succinate [Toprol Xl*] 25 mg PO DAILY #30 tab Physician Discharge Instructions: Mrs. Lee has been quite hypertensive through the course of her hospitalization. She had a normal echo on 06/11/2024 and a repeated normal echo 10/18/24. She is awaiting neurosurgical evaluation in November for significant spinal stenosis with compression and inflammation. She is able to move all extremities, walks well with a front wheeled walker, and denies pain. Her blood pressure medicines include Catapres 0.2 patch q. 7 days, nifedipine was doubled from 30 mg to 60 mg p.o. daily, Coreg 25 mg p.o. twice daily, hydralazine 50 mg p.o. 3 times daily, for consistent systolic blood pressures 170-200. Will add small dose of metoprolol. Mrs. Lee should follow-up with her PCP in 1 to 2 days. Diet: AHA Activity: Fall precautions Followup: Mary Jane Mejia MD [Primary Care Provider] - 1-2 Weeks
--- NOTE | 2024-10-18 16:34 | P.PN ---
Date of Service: 10/18/24 Subjective Date of Service: 10/18/24 Chief Complaint: Syncopal episode Subjective: No new changes, Improving, but blood pressure remains very high Review of Systems 10-point ROS is otherwise unremarkable General: Weakness, Malaise Eyes: Unremarkable ENT: Unremarkable Respiratory: Unremarkable Cardiovascular: Unremarkable Gastrointestinal: Unremarkable Musculoskeletal: Unremarkable Integumentary: Unremarkable Neurological: As per HPI Physical Examination - Vital Signs reviewed, SBP 170s-200s, will continue to adjust antihypertensives - Physical Exam General: Alert, In no apparent distress, Oriented x3 HEENT: Atraumatic, Normocephalic, PERRLA Neck: Supple Respiratory: Normal air movement Cardiovascular: No edema, Normal pulses Capillary refill: <2 Seconds Gastrointestinal: Soft and benign Musculoskeletal: No clubbing, No swelling Integumentary: No rashes Neurological: Normal speech, Normal tone, Normal affect Lymphatics: No axilla or inguinal lymphadenopathy External genitalia: Deferred Rectal: Deferred Assessment And Plan (1) Syncopal episodes Current Visit: Yes Status: Acute (2) Orthostatic hypotension Current Visit: Yes Status: Acute (3) Unsteady gait Current Visit: Yes Status: Acute (4) Lumbar stenosis Current Visit: Yes Status: Acute (5) Spondylosis Current Visit: Yes Status: Acute - [facility] anti[facility]ives for syncopal episode, hypotension. 10/17/24 input home medications. Pt has been very hypertensive since admission Orthostatic vital signs Midodrine as needed systolic blood pressure less than 100 - held for HTN PT to eval, fall precautions, as needed analgesia Echo ordered - last ECHO 06/11/24 - echo cancelled to late and was repeated and is normal, no DD, no EF compromise 06/11/2024 1. NORMAL LEFT VENTRICULAR EJECTION FRACTION 60-65% WITH NORMAL WALL MOTION 2. GRADE I DIASTOLIC DYSFUNCTION 3. TRACE MITRAL REGURGITATION/ TRICUSPID REGURGITATION Accu-Cheks ACHS, sliding scale insulin - 10/17/24 reordered pt's glipezide from home med list Microcytic anemia trend H&H transfuse less than 7 Chest x-ray no acute cardiopulmonary disease Cervical spine CT Severe central canal stenosis is present at C3-4 described, with 5-6 mm disc extrusion present at this level. There is elevated signal within the cord as well at this level and at the C4-5 levellikely cord edema and myelomalacia. The C3-4 findings have progressed since the 09/29/2023 comparison study. Reported By: Aditya Cochran Lumbar CT Significant lower lumbar degenerative spondylosis as detailed. Severe canal stenosis is noted at L3-4 and L4-5 as detailed. Diabetic diet Full code DVT SCDs Disposition Home with home health and assistive devices 10/17/24 Concern for persistent HTN this am. 225/78 Home medications placed. Will restart Gabapentin. Clonidine 0.2mg patch Pt's CGM showed 1am glucose of 64. Snack given. This am around 7 glucose 150mg/dL Pt had a normal echo on 06/11/24 - suspect s/s related to myelopathy not cardiac Neurosurgery appt next month (November) SS consult for discharge planning. 10/18/24 pt is without complaint but her blood pressure remains too high. I doubled Nifedipine today, added metoprolol succ 25mg for am, will see about discharge home tomorrow Discharge Plan: Home <Renetta Ewing - Last Filed: 10/18/24 16:34> Chart has been reviewed. Events of the last 24 hours have been noted. Case discussed with KATLIN. I performed a substantial part of the MDM during this patient's care today. I personally made or approved the documented management plan and acknowledge its risk of complications. I agree with the findings and documentation provided in the KATLIN's notes <Marylou Cooper - Last Filed: 10/26/24 01:37>
[2024-10-19] MEDS: NIFEDIPINE XL 60 MG TABLET PO SCH (10:13)
[2024-10-19 12:54] VITALS: BP 159/65; TEMP 98.1
--- NOTE | 2024-10-19 14:24 | P.DS ---
Admission Date: 10/16/24 Discharge Date: 10/19/24 Reason for Admission: Syncopal episode Brief History of Present Illness: 78-year-old female with a past medical historyAtrial fibrillation; Diabetes; Diverticulitis; Hypertension; ruptured bowel; PSHx: bowel resection with colostomy and reversal; hysterectomy; presents to the emergency room with syncopal episode. Family reports helping patient to the floor. Denies fall, denies hitting her head, she reports generalized weakness, she reports symptoms worse with hypotension. She reports PCP adjusting her glipizide, lowering dose. She reports symptoms worse with standing, changing positions. No reported chest pain, abdominal pain, nausea vomiting diarrhea, edema. She reports history of cervical and lumbar spinal stenosis, recent MRI, she reports numbness to the upper extremities, weakness to the bilateral lower extremities. MRI was discussed with Dr Orellana prior to accepting patient for admission, plan to admit for syncopal episode, - Physical Exam General: Alert, In no apparent distress, Oriented x3, Other (Generalized weakness) HEENT: Atraumatic, Normocephalic, PERRLA Neck: Supple, 2+ carotid pulse no bruit, JVD not distended Respiratory: Clear to auscultation bilaterally, Normal air movement Cardiovascular: No edema, Normal pulses, Regular rate/rhythm, Normal S1 S2 Capillary refill: <2 Seconds Gastrointestinal: Normal bowel sounds, Soft and benign, Non-distended Musculoskeletal: No clubbing, No swelling, Other (Generalized weakness, unsteady gait) Hospital Course: 78-year-old female with a past medical historyAtrial fibrillation; Diabetes; Diverticulitis; Hypertension; ruptured bowel; PSHx: bowel resection with colostomy and reversal; hysterectomy; presents to the emergency room with syncopal episode. Family reports helping patient to the floor. Denies fall, denies hitting her head, she reports generalized weakness, she reports symptoms worse with hypotension. Was noted to have orthostatic hypotension tension, lumbar stenosis, patient has a follow-up appointment with neurosurgery after discharge for degenerative joint disease, lumbar fracture Discharge medication Catapres transdermal 0.2 weekly Procardia 60 mg 1 p.o. twice daily #60 Metoprolol XL 25 mg daily Assessment Hypertensive urgency resume home antihypertensives, discharged home with antihypertensives instructed to take blood pressure after discharge, take to cardiology with Syncopal episode no orthostatic hypotension observed while working with physical therapy Suspected orthostatic hypotension-hypotensive not observed when working with physical therapy Fall with unsteady gait Spondylosis/Lumbar stenosis follow-up with Ortho surgery after discharge, appointment already arranged CT of the head CT of the head no acute intracranial abnormality Chest x-ray no evidence of acute cardiopulmonary disease. 10/06 MRI lumbar Significant lower lumbar degenerative spondylosis as detailed. Severe canal stenosis is noted at L3-4 and L4-5 as detailed.Additional significant spondylosis findings are present as fully detailed above. 10/06 cervical MRI Severe central canal stenosis is present at C3-4 described, with 5-6 mm disc extrusion present at this level. There is elevated signal within the cord as well at this level and at the C4-5 level likely cord edema and myelomalacia. The C3-4 findings have progressed since the 09/29/2023 comparison study. Echocardiogram 1. NORMAL LEFT VENTRICULAR SYSTOLIC FUNCTION, EJECTION FRACTION 65%, NORMAL WALL MOTION.2. NORMAL DIASTOLIC FUNCTION.3. MILD AORTIC REGURGITATION. Continue home medicines as previously prescribed GOAL: Clear understanding of disease process INSTRUCTIONS: Physician Discharge Instructions: -Follow-up with cardiology after discharge -Follow-up with Ortho surgery after discharge -Follow-up with PCP in 1 to 2 weeks -Please call Dr. Cooper at [phone] if any questions regarding hospital stay -Please call nursing station at [phone] if any nursing or medication questions -Return to the emergency room if symptoms worsen Diet: ADA, low sodium Activity: Fall precautions <Naina Calvert - Last Filed: 10/19/24 19:08> Admission Date: 10/16/24 Discharge Date: 10/19/24 Hospital Course: Chart has been reviewed. Events of the last 24 hours have been noted. Case discussed with KATLIN. I performed a substantial part of the MDM during this patient's care today. I personally made or approved the documented management plan and acknowledge its risk of complications. I agree with the findings and documentation provided in the KATLIN's notes <Marylou Cooper - Last Filed: 10/26/24 01:38> Disposition: MD HOME/HOME HEALTH CARE Vital Signs/Physical Exam: Temp Pulse Resp BP Pulse Ox 98.1 F 70 16 159/65 H 70 L 10/19/24 08:00 10/19/24 08:00 10/19/24 08:00 10/19/24 08:00 10/19/24 08:00 Laboratory Data at Discharge: WBC 6.60 thou/uL (4.3-10.9) 10/18/24 04:04 Hgb 9.5 g/dL (12.0-15.0) L D 10/18/24 04:04 Hct 29.7 % (36.0-45.0) L 10/18/24 04:04 Plt Count 224 thou/uL (152-406) 10/18/24 04:04 PT 10.2 SECONDS (9.4-12.5) 10/16/24 10:25 INR 0.91 10/16/24 10:25 APTT 35.3 SECONDS (24.3-36.9) 10/16/24 10:25 Sodium 137 mEq/L (136-145) 10/18/24 04:04 Potassium 3.6 mEq/L (3.5-5.1) 10/18/24 04:04 BUN 20 mg/dL (7-18) H 10/18/24 04:04 Creatinine 1.56 mg/dL (0.55-1.02) H 10/18/24 04:04 Glucose 177 mg/dL (74-106) H 10/18/24 04:04 Magnesium 2.0 mg/dL (1.6-2.4) 10/18/24 04:04 Total Bilirubin 0.3 mg/dL (0.2-1.0) 10/16/24 10:25 AST 16 U/L (15-37) 10/16/24 10:25 ALT 19 U/L (13-56) 10/16/24 10:25 Alkaline Phosphatase 57 U/L (45-117) 10/16/24 10:25 <Naina Calvert - Last Filed: 10/19/24 19:08> Vital Signs/Physical Exam: Temp Pulse Resp BP Pulse Ox 98.1 F 70 16 159/65 H 94 10/19/24 08:00 10/19/24 08:00 10/19/24 08:00 10/19/24 08:00 10/19/24 08:00 General: Alert, In no apparent distress, Oriented x3 Laboratory Data at Discharge: WBC 6.60 thou/uL (4.3-10.9) 10/18/24 04:04 Hgb 9.5 g/dL (12.0-15.0) L D 10/18/24 04:04 Hct 29.7 % (36.0-45.0) L 10/18/24 04:04 Plt Count 224 thou/uL (152-406) 10/18/24 04:04 PT 10.2 SECONDS (9.4-12.5) 10/16/24 10:25 INR 0.91 10/16/24 10:25 APTT 35.3 SECONDS (24.3-36.9) 10/16/24 10:25 Sodium 137 mEq/L (136-145) 10/18/24 04:04 Potassium 3.6 mEq/L (3.5-5.1) 10/18/24 04:04 BUN 20 mg/dL (7-18) H 10/18/24 04:04 Creatinine 1.56 mg/dL (0.55-1.02) H 10/18/24 04:04 Glucose 177 mg/dL (74-106) H 10/18/24 04:04 Magnesium 2.0 mg/dL (1.6-2.4) 10/18/24 04:04 Total Bilirubin 0.3 mg/dL (0.2-1.0) 10/16/24 10:25 AST 16 U/L (15-37) 10/16/24 10:25 ALT 19 U/L (13-56) 10/16/24 10:25 Alkaline Phosphatase 57 U/L (45-117) 10/16/24 10:25 <Marylou Cooper - Last Filed: 10/26/24 01:38> Diet: AHA Activity: Fall precautions Time spent managing pt's care (in minutes): 45 <Naina Calvert - Last Filed: 10/19/24 19:08> <Marylou Cooper - Last Filed: 10/26/24 01:38> Home Medications: Aspirin [Aspirin EC 81 MG] 81 mg PO DAILY 01/22/24 Atorvastatin Calcium [Lipitor*] 20 mg PO BEDTIME 01/22/24 Gabapentin [Neurontin*] 600 mg PO TID 01/22/24 Na Bicarb Tab [Sodium Bicarb 325 MG Tab*] 650 mg PO BID 01/22/24 Hydrocodone 5/APAP 325 [[place] 5/325*] 1 tab PO Q6HP PRN #30 tab 01/25/24 carvediloL [Coreg*] 25 mg PO BID 02/16/24 Hydralazine [Apresoline*] 50 mg PO TID #90 tab 02/25/24 Hydrocortisone Acetate [Hemmorex-Hc] 30 mg RC BID PRN #30 supp.rect 02/25/24 Glipizide [Glipizide ER] 5 mg PO DAILY 10/16/24 Metoprolol Succinate [Toprol Xl*] 25 mg PO DAILY #30 tab 10/18/24 Nifedipine Xl [Procardia Xl*] 60 mg PO BID #60 tab 10/18/24 cloNIDine [Catapres-Tts 2] 0.2 mg TD SEECOM #10 patch 10/18/24 New Medications: cloNIDine [Catapres-Tts 2] 0.2 mg TD SEECOM #10 patch Nifedipine Xl [Procardia Xl*] 60 mg PO BID #60 tab Metoprolol Succinate [Toprol Xl*] 25 mg PO DAILY #30 tab Physician Discharge Instructions: PROBLEM: hypertension, Syncope GOAL: Clear understanding of disease process INSTRUCTIONS: Call 2nd floor nurses station for any questions/concerns [phone] Home Health has been set up with: [facility] [phone] fax [phone] Bedside commode delivered to patient 10/18/24 Diet: AHA Activity: Fall precautions Mrs. Lee has been quite hypertensive through the course of her hospitalization. She had a normal echo on 06/11/2024 and a repeated normal echo 10/18/24. She is awaiting neurosurgical evaluation in November for significant spinal stenosis with compression and inflammation. She is able to move all extremities, walks well with a front wheeled walker, and denies pain. Her blood pressure medicines include Catapres 0.2 patch q. 7 days, nifedipine was doubled from 30 mg to 60 mg p.o. daily, Coreg 25 mg p.o. twice daily, hydralazine 50 mg p.o. 3 times daily, for consistent systolic blood pressures 170-200. Will add small dose of metoprolol. Mrs. Lee should follow-up with her PCP in 1 to 2 days. Followup: Serge Morales MD [ACTIVE - CAN ADMIT] - Mary Jane Mejia MD [Primary Care Provider] - 1-2 Weeks
[2024-10-19 14:50] VITALS: O2SAT 97
--- NOTE | 2024-10-22 16:13 | EKG ---
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
== END 2024-10-19 15:07 | disposition home health service (06) | DRG 312 ==
LOC: ER 10:00 → ERHOLD 16:23 → 2ND 18:09
PROVIDERS: ADMIT Internal Medicine; ATTEND Hospitalist
DX: I95.1 Orthostatic hypotension (principal); I16.0 Hypertensive urgency; I48.91 Unspecified atrial fibrillation; I10 Essential (primary) hypertension; D50.9 Iron deficiency anemia, unspecified; E11.9 Type 2 diabetes mellitus without complications; M48.061 Spinal stenosis, lumbar region without neurogenic claudication; M47.816 Spondylosis without myelopathy or radiculopathy, lumbar region; R26.81 Unsteadiness on feet; Z93.3 Colostomy status; Z88.1 Allergy status to other antibiotic agents; Z88.8 Allergy status to other drugs, medicaments and biological substances; Z79.82 Long term (current) use of aspirin; Z11.52 Encounter for screening for COVID-19; Z79.01 Long term (current) use of anticoagulants; Z90.49 Acquired absence of other specified parts of digestive tract; Z90.710 Acquired absence of both cervix and uterus; Z79.899 Other long term (current) drug therapy
CPT/HCPCS: 36415; 70450; 71045; 80048; 80053; 81001; 82947; 83605; 83735; 83880; 84484; 85025; 85610; 85730; 87040; 87804; 87811; 93005; 93306; 96360; 97161; 97530; 99285; J0360; J7040; J8597

== ENCOUNTER 2025-02-03 15:04 | Emergency (ER) | payer OTHER ==
[2025-02-03] MEDS ORDERED: TRAMADOL HCL 50 MG TAB ONE (15:43)
--- NOTE | 2025-02-03 16:25 | RAD REPORT ---
EXAMINATION: CT HEAD WITHOUT CONTRAST CT CERVICAL SPINE WITHOUT CONTRAST CLINICAL INDICATION: Head and neck injury status post fall. Head and neck pain TECHNIQUE: Axial CT images from the skull base to the vertex without intravenous contrast. Axial CT i mages through the cervical spine were obtained without intravenous contrast. Sagittal and coronal reformatted images were created from the data set. Coronal and sagittal reformatted images were creat ed from the data set. One or more of the following dose reduction techniques were used: Automated exposure control, adjustment of the mA and/or kV according to patient size, and/or iterative reconstr uction. Unless otherwise specified, incidental findings do not require dedicated imaging follow-up. [id number]. Comparison: 2023 FINDINGS: An intracranial bleed is not seen. Ventricles are normal in caliber. No significant hypodensity within the brain No extra-axial fluid collection. No fluid within the sinuses/mastoids Postsurgical changes C4-C7. No fracture seen. Development of 4 mm anterior subluxation L3 on C4. IMPRESSION: No acute intracranial abnormality noted A cervical fracture is not seen. 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
--- NOTE | 2025-02-03 17:00 | EDPHYS ---
Physician Documentation [facility] Name: Jesi Lee Age: 79 yrs Sex: Female : 1945 Arrival Date: 02/03/2025 Time: 15:04 Bed 14 Private MD: ED Physician Rishi Patino HPI: 02/03 16:06 This 79 yrs old Female presents to ER via Wheelchair with complaints of Head rn Injury Without LOC-Adult. 16:06 The patient or guardian reports injury, pain. The complaints affect the Right occiput. rn Onset: The symptoms/episode began/occurred just prior to arrival. Severity of symptoms: At their worst the symptoms were mild, in the emergency department the symptoms are unchanged. Patient reports accidentally fell backward, was trying to stand, struck right back of scalp. Has hematoma but no laceration. No bleeding. No vomiting. No syncope or LOC. No seizure. Patient reports has chronic neck and back pain and she is scheduled for surgery in February for the neck. Thinks fall aggravated her pain but overall pretty identical to her chronic pain. Denies any injury to extremities. No rib or chest pain.. Historical: - Allergies: 15:09 Cipro; ll1 15:09 minoxidil (bulk); ll1 - PMHx: 15:09 Atrial fibrillation; Diabetes; Diverticulitis; Hypertension; ruptured bowel; ll1 - PSHx: 15:09 bowel resection with colostomy and reversal; hysterectomy; ll1 - Immunization history:: Adult Immunizations up to date. - Infectious Disease History:: Denies. - Social history:: Smoking status: Patient denies any tobacco usage or history of. - Family history:: not pertinent. - Hospitalizations: : No recent hospitalization is reported. ROS: 16:06 Constitutional: Negative for fever, chills, and weight loss, Neck: Positive for neck rn pain Cardiovascular: Negative for chest pain, palpitations, and edema, Respiratory: Negative for shortness of breath, cough, wheezing, and pleuritic chest pain, Abdomen/GI: Negative for abdominal pain, nausea, vomiting, diarrhea, and constipation, Back: Positive for chronic back pain and lower back MS/Extremity: Negative for injury and deformity, Neuro: Positive for headache, negative for focal neurological deficit Exam: 16:06 Constitutional: This is a well developed, well nourished patient who is awake, alert, rn and in no acute distress. Head/Face: Normocephalic, right occipital scalp hematoma without laceration. No depression. Neck: No midline cervical tenderness or swelling Cardiovascular: Regular rate and rhythm. No pulse deficits. Respiratory: No increased work of breathing, no retractions or nasal flaring. Abdomen/GI: Soft, non-tender Back: No spinal tenderness. MS/ Extremity: Pulses equal, no cyanosis. Neurovascular intact. Full, normal range of motion. Equal circumference. Neuro: Awake and alert, GCS 15, oriented to person, place, time, and situation. Motor strength 5/5 in all extremities. Sensory grossly intact. Vital Signs: 15:22 BP 172 / 75; Pulse 77; Resp 16; Temp 98; Pulse Ox 100% ; Weight 48.99 kg; Height 5 ft. ll1 1 in. ; Pain 6/10; 16:30 BP 162 / 68; Pulse 70; Resp 18; Pulse Ox 100% ; kj2 17:25 BP 159 / 69; Pulse 72; Resp 18; Temp 98; Pulse Ox 100% ; kj2 15:22 Body Mass Index 20.41 (48.99 kg, 154.94 cm) ll1 15:22 Pain Scale: Adult ll1 Travis Coma Score: 16:06 Eye Response: spontaneous(4). Motor Response: obeys commands(6). Verbal Response: rn oriented(5). Total: 15. 16:58 Eye Response: spontaneous(4). Motor Response: obeys commands(6). Verbal Response: rn oriented(5). Total: 15. MDM: 15:11 Medical Screening Exam initiated rn 16:58 Differential diagnosis: Contusion of Hematoma on Intracranial bleed- Concussion rn cerebral contusion. Data reviewed: vital signs, nurses notes, radiologic studies, CT scan, and as a result, I will discharge patient. Counseling: I had a detailed discussion with the patient and/or guardian regarding the historical points, exam findings, and any diagnostic results supporting the discharge/admit diagnosis, radiology results, the need for outpatient follow up, to return to the emergency department if symptoms worsen or persist or if there are any questions or concerns that arise at home. Response to treatment: the patient's symptoms have mildly improved after treatment, and as a result, I will discharge patient. Special discussion: I discussed with the patient/guardian in detail that at this point there is no indication for admission to the hospital. It is understood, however, that if the symptoms persist or worsen the patient needs to return immediately for re-evaluation. ED course: I have personally reviewed all of the results, including but not limited to imaging deemed necessary to safely discharge this patient at this time. All results given to and printed out for patient. I personally went over all the results with the patient and answered all questions. Patient will follow-up with PCP and or specialist as discussed. Return precautions given and understood. Recommend ice to hematoma and given return precautions. Offered pain medication to patient but declines due to possible side effects of constipation. 02/03 15:20 Order name: CT Head C Spine; Complete Time: 16:55 rn Administered Medications: 15:49 Drug: traMADol PO 50 mg PO once Route: PO; kj2 17:30 Follow up: Response: No adverse reaction kj2 Disposition Summary: 02/03/25 16:59 Discharge Ordered Notes: Location: Home rn Problem: new rn Symptoms: have improved rn Condition: Stable rn Diagnosis - Unspecified injury of head, initial encounter rn Followup: rn - With: Private Physician - When: As needed - Reason: Recheck today's complaints, Re-evaluation by your physician Discharge Instructions: - Discharge Summary Sheet rn - Head Injury, Adult rn - Hematoma rn Forms: - Medication Reconciliation Form rn - Antibiotic rn progressive care - Prescription Opioid Use rn - Patient Portal Instructions rn - Leadership Thank You Letter rn Signatures: Dispatcher [employer] Rishi Doyle MD MD rn Lewis, Lynsay RN RN ll1 Tracie Montano RN RN kj2 Corrections: (The following items were deleted from the chart) 15:09 15:09 PSHx: bowel resection with colostomy and reversal; ll1 ll1
--- NOTE | 2025-02-03 17:00 | ER ---
Nurse's Notes [facility] Name: Jesi Lee Age: 79 yrs Sex: Female : 1945 Arrival Date: 02/03/2025 Time: 15:04 Bed 14 Private MD: Diagnosis: Unspecified injury of head, initial encounter Presentation: 02/03 15:09 Coronavirus screen: Client denies travel out of the [place] in the last 14 days. At this ll1 time, the client does not indicate any symptoms associated with coronavirus-19. Ebola Screen: Patient denies travel to an Ebola-affected area in the 21 days before illness onset. Initial Sepsis Screen: Does the patient meet any 2 criteria? No. Patient's initial sepsis screen is negative. Does the patient have a suspected source of infection? No. Patient's initial sepsis screen is negative. Risk Assessment: Do you want to hurt yourself or someone else? Patient reports no desire to harm self or others. 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 Head ll1 and back pain since. Onset of symptoms was February 03, 2025. Triage Assessment: 15:10 General: Appears uncomfortable, Behavior is calm, cooperative, appropriate for age. ll1 Pain: Complains of pain in scalp. Neuro: Reports headache. Historical: - Allergies: 15:09 Cipro; ll1 15:09 minoxidil (bulk); ll1 - PMHx: 15:09 Atrial fibrillation; Diabetes; Diverticulitis; Hypertension; ruptured bowel; ll1 - PSHx: 15:09 bowel resection with colostomy and reversal; hysterectomy; ll1 - Immunization history:: Adult Immunizations up to date. - Infectious Disease History:: Denies. - Social history:: Smoking status: Patient denies any tobacco usage or history of. - Family history:: not pertinent. - Hospitalizations: : No recent hospitalization is reported. Screenin:30 [facility] ED Fall Risk Assessment (Adult) History of falling in the last 3 months, kj2 including since admission No falls in past 3 months (0 pts) Confusion or Disorientation No (0 pts) Intoxicated or Sedated No (0 pts) Impaired Gait No (0 pts) Mobility Assist Device Used No (0 pt) Altered Elimination No (0 pt) Score/Fall Risk Level 0 - 2 = Low Risk Oriented to surroundings, Maintained a safe environment, Hourly rounding (assess needs \T\ fall precautionary measures) done. Abuse screen: Denies threats or abuse. Denies injuries from another. Nutritional screening: No deficits noted. Tuberculosis screening: No symptoms or risk factors identified. Assessment: 15:30 General: Appears in no apparent distress. Behavior is calm. Pain: Complains of pain in kj2 scalp Pain currently is 6 out of 10 on a pain scale. Neuro: Level of Consciousness is awake, alert, obeys commands, Oriented to person, place, time, situation. Cardiovascular: Patient's skin is warm and dry. Respiratory: Airway is patent Respiratory effort is unlabored. GI: No signs and/or symptoms were reported involving the gastrointestinal system. : No signs and/or symptoms were reported regarding the genitourinary system. 16:30 Reassessment: Patient appears in no apparent distress at this time. Patient and/or kj2 family updated on plan of care and expected duration. Pain level reassessed. Patient is alert, oriented x 3, equal unlabored respirations, skin warm/dry/pink. 17:25 Reassessment: Patient appears in no apparent distress at this time. Patient and/or kj2 family updated on plan of care and expected duration. Pain level reassessed. Patient is alert, oriented x 3, equal unlabored respirations, skin warm/dry/pink. Vital Signs: 15:22 BP 172 / 75; Pulse 77; Resp 16; Temp 98; Pulse Ox 100% ; Weight 48.99 kg; Height 5 ft. ll1 1 in. ; Pain 6/10; 16:30 BP 162 / 68; Pulse 70; Resp 18; Pulse Ox 100% ; kj2 17:25 BP 159 / 69; Pulse 72; Resp 18; Temp 98; Pulse Ox 100% ; kj2 15:22 Body Mass Index 20.41 (48.99 kg, 154.94 cm) ll1 15:22 Pain Scale: Adult ll1 Hamilton Coma Score: 16:06 Eye Response: spontaneous(4). Motor Response: obeys commands(6). Verbal Response: rn oriented(5). Total: 15. 16:58 Eye Response: spontaneous(4). Motor Response: obeys commands(6). Verbal Response: rn oriented(5). Total: 15. ED Course: 15:07 Patient arrived in ED. im 15:09 Triage completed. ll1 15:09 Arm band placed on Patient placed in an exam room, on a stretcher. ll1 15:11 Rishi Patino MD is Attending Physician. rn 15:14 Tracie Montano, RAUL is Primary Nurse. kj2 15:30 Patient has correct armband on for positive identification. Bed in low position. Call kj2 light in reach. Provided Education on: call light. 15:32 CT Head C Spine In Process Unspecified. EDMS 17:28 No provider procedures requiring assistance completed. Patient did not have IV access kj2 during this emergency room visit. Administered Medications: 15:49 Drug: traMADol PO 50 mg PO once Route: PO; kj2 17:30 Follow up: Response: No adverse reaction kj2 Medication: 17:29 VIS not applicable for this client. kj2 Outcome: 16:59 Discharge ordered by . rn 17:28 Discharged to home via wheelchair, with family, kj2 17:28 Condition: stable 17:28 Discharge instructions given to patient, Instructed on discharge instructions, follow up and referral plans. Demonstrated understanding of instructions, follow-up care, 17:45 Patient left the ED. kj2 Signatures: Dispatcher [employer] EDMS Rishi Patino MD MD rn Lewis, Lynsay, RN RN ll1 Katty Bowman Tracie Montano, RN RN kj2 Corrections: (The following items were deleted from the chart) 15:09 15:09 PSHx: bowel resection with colostomy and reversal; ll1 ll1
[2025-02-03 18:06] VITALS: TEMP 98; O2SAT 100
[2025-02-03 18:08] VITALS: BP 159/69
== END 2025-02-03 17:45 | disposition home or self-care (01) ==
LOC: ER 15:04
DX: S00.03XA Contusion of scalp, initial encounter (principal); R51.9 Headache, unspecified; W18.30XA Fall on same level, unspecified, initial encounter
CPT/HCPCS: 70450; 72125; 99283